=== PATIENT | male | born 1960 | race Caucasian/White ===

== ENCOUNTER 2021-11-09 15:50 | Inpatient (IN) | payer MEDICARE ==
[2021-11-09] MEDS ORDERED: HYDROmorphone 0.5 MG/0.5 ML SYRINGE IVP STA ×2 (16:43→19:07)
--- NOTE | 2021-11-09 16:43 | ED ---
General Adult HPI - General Chief complaint: Extremity Problem,Nontraumatic Stated complaint: Leg swelling Time Seen by Provider: 11/09/21 16:00 Source: patient, EMS, RN notes reviewed, old records reviewed Mode of arrival: EMS Limitations: no limitations - History of Present Illness Initial comments: This is a 61-year-old male who presents emergency Department states he is diabetic. Patient states she's had any indication below the knee on the left leg and today he comes in because he is more swelling to the right leg he has a wound that has not been taking care for about 2 weeks since he left [place]. Patient states he has a wound on the lateral aspect of his right heel and normally he is taking care of when he was a [place] but he hasn't seen anybody because he just moved here 2 weeks ago. Patient states the swelling or leg is definitely worse per patient denies shortness of breath or chest pain or palpitations. Patient denies any fever chills or cough. Patient states he just wants to make sure the wound is taking care of so that he doesn't lose the other leg. Patient denies any abdominal pain patient denies nausea vomiting diarrhea. - Related Data Home Medications Medication Instructions Recorded Confirmed Carvedilol [Coreg] 12.5 mg PO BID-W/MEALS 11/09/21 11/09/21 Insulin Glargine,Hum.rec.anlog 40 unit SQ HS 11/09/21 11/09/21 [Basaglar Kwikpen U-100] Insulin Lispro [humaLOG Kwikpen] 15 units SQ AC-TID 11/09/21 11/09/21 Ketoconazole 2% Shampoo [Nizoral] 1 applic TOPICAL DIRECTED 11/09/21 11/09/21 Ticagrelor [Brilinta] 90 mg PO BID 11/09/21 11/09/21 amLODIPine [Norvasc] 10 mg PO DAILY 11/09/21 11/09/21 levETIRAcetam [Keppra] 1,000 mg PO BID 11/09/21 11/09/21 Allergies Allergy/AdvReac Type Severity Reaction Status Date / Time No Known Allergies Allergy Verified 11/09/21 17:03 Review of Systems ROS Statement: Those systems with pertinent positive or pertinent negative responses have been documented in the HPI. ROS Other: All systems not noted in ROS Statement are negative. Past Medical History Past Medical History: CVA/TIA, Diabetes Mellitus, Hypertension Additional Past Medical History / Comment(s): BKA right leg History of Any Multi-Drug Resistant Organisms: None Reported Additional Past Surgical History / Comment(s): BKA right leg Past Psychological History: No Psychological Hx Reported Smoking Status: Current every day smoker Past Alcohol Use History: None Reported Past Drug Use History: None Reported General Exam - General Exam Comments Initial Comments: GENERAL: Patient is well-developed and well-nourished. Patient is nontoxic and well-hydrated and is in no acute distress. ENT: Neck is soft and supple. No significant lymphadenopathy is noted. Oropharynx is clear. Moist mucous membranes. Neck has full range of motion without eliciting any pain. EYES: The sclera were anicteric and conjunctiva were pink and moist. Extraocular mov ements were intact and pupils were equal round and reactive to light. Eyelids were unremarkable. PULMONARY: Unlabored respirations. Good breath sounds bilaterally. No audible rales rhonchi or wheezing was noted. CARDIOVASCULAR: There is a regular rate and rhythm without any murmurs gallops or rubs. ABDOMEN: Soft and nontender with normal bowel sounds. SKIN: Skin is clear with no lesions or rashes and otherwise unremarkable. NEUROLOGIC: Patient is alert and oriented x3. Cranial nerves II through XII are grossly intact. Motor and sensory are also intact. Normal speech, volume and content. Symmetrical smile. MUSCULOSKELETAL: Patient has a BKA on the left leg. Right leg is swollen has chronic cellulitis in the lateral aspect of the right foot has necrotic lesion that needs de bridement. LYMPHATICS: No significant lymphadenopathy is noted PSYCHIATRIC: Normal psychiatric evaluation. Limitations: no limitations Course Vital Signs 11/09/21 11/09/21 15:58 18:12 Temperature 98.4 F Pulse Rate 92 88 Respiratory 18 20 Rate Blood Pressure 147/82 146/77 O2 Sat by Pulse 96 94 L Oximetry Medical Decision Making - Medical Decision Making EKG shows sinus rhythm at 90 bpm AK interval 174 QRS is 100 QT interval 356 QTC is 43. Patient's EKG shows no ST segment elevation or depression. Chest x-ray shows no acute abnormality. Ultrasound of the leg good flow without obvious DVT. I went back in the room to reevaluate the patient he stated he was not short of breath at all and not having any chest pain. So at this point time because of his elevated creatinine I did not do a CT rule out PE even though his d-dimer was elevated. I spoke with sounds physician's agreed to admit the patient admitted the patient I wrote admitting orders. - Lab Data Result diagrams: 11/09/21 16:26 11/09/21 16:26 Lab Results 11/09/21 11/09/21 11/09/21 Range/Units 16:26 16:26 16:26 WBC 8.3 (3.8-10.6) k/uL RBC 3.85 L (4.30-5.90) m/uL Hgb 10.8 L (13.0-17.5) gm/dL Hct 33.6 L (39.0-53.0) % MCV 87.4 (80.0-100.0) fL MCH 28.2 (25.0-35.0) pg MCHC 32.2 (31.0-37.0) g/dL RDW 14.8 (11.5-15.5) % Plt Count 269 (150-450) k/uL MPV 7.0 Neutrophils % 73 % Lymphocytes % 14 % Monocytes % 7 % Eosinophils % 5 % Basophils % 1 % Neutrophils # 6.0 (1.3-7.7) k/uL Lymphocytes # 1.2 (1.0-4.8) k/uL Monocytes # 0.6 (0-1.0) k/uL Eosinophils # 0.4 (0-0.7) k/uL Basophils # 0.1 (0-0.2) k/uL PT 9.8 (9.0-12.0) sec INR 0.9 (<1.2) APTT 27.8 (22.0-30.0) sec D-Dimer 3.28 H (<0.60) mg/L FEU Sodium 139 (137-145) mmol/L Potassium 4.7 (3.5-5.1) mmol/L Chloride 110 H (98-107) mmol/L Carbon Dioxide 25 (22-30) mmol/L Anion Gap 4 mmol/L BUN 26 H (9-20) mg/dL Creatinine 1.68 H (0.66-1.25) mg/dL Est GFR (CKD-EPI)AfAm 50 (>60 ml/min/1.73 sqM) Est GFR (CKD-EPI)NonAf 43 (>60 ml/min/1.73 sqM) Glucose 196 H (74-99) mg/dL Plasma Lactic Acid Donny (0.7-2.0) mmol/L Calcium 8.1 L (8.4-10.2) mg/dL Total Bilirubin 0.3 (0.2-1.3) mg/dL AST 17 (17-59) U/L ALT 6 (4-49) U/L Alkaline Phosphatase 101 (38-126) U/L Troponin I (0.000-0.034) ng/mL NT-Pro-B Natriuret Pep pg/mL Total Protein 6.3 (6.3-8.2) g/dL Albumin 3.0 L (3.5-5.0) g/dL 11/09/21 11/09/21 11/09/21 Range/Units 16:26 16:26 16:26 WBC (3.8-10.6) k/uL RBC (4.30-5.90) m/uL Hgb (13.0-17.5) gm/dL Hct (39.0-53.0) % MCV (80.0-100.0) fL MCH (25.0-35.0) pg MCHC (31.0-37.0) g/dL RDW (11.5-15.5) % Plt Count (150-450) k/uL MPV Neutrophils % % Lymphocytes % % Monocytes % % Eosinophils % % Basophils % % Neutrophils # (1.3-7.7) k/uL Lymphocytes # (1.0-4.8) k/uL Monocytes # (0-1.0) k/uL Eosinophils # (0-0.7) k/uL Basophils # (0-0.2) k/uL PT (9.0-12.0) sec INR (<1.2) APTT (22.0-30.0) sec D-Dimer (<0.60) mg/L FEU Sodium (137-145) mmol/L Potassium (3.5-5.1) mmol/L Chloride (98-107) mmol/L Carbon Dioxide (22-30) mmol/L Anion Gap mmol/L BUN (9-20) mg/dL Creatinine (0.66-1.25) mg/dL Est GFR (CKD-EPI)AfAm (>60 ml/min/1.73 sqM) Est GFR (CKD-EPI)NonAf (>60 ml/min/1.73 sqM) Glucose (74-99) mg/dL Plasma Lactic Acid Donny 1.0 (0.7-2.0) mmol/L Calcium (8.4-10.2) mg/dL Total Bilirubin (0.2-1.3) mg/dL AST (17-59) U/L ALT (4-49) U/L Alkaline Phosphatase (38-126) U/L Troponin I <0.012 (0.000-0.034) ng/mL NT-Pro-B Natriuret Pep 813 pg/mL Total Protein (6.3-8.2) g/dL Albumin (3.5-5.0) g/dL Disposition Clinical Impression: Pedal edema, Decubitus ulcer of foot Disposition: ADMITTED IP TO THIS HOSP Referrals: None,Stated [Primary Care Provider] - 1-2 days Time of Disposition: 19:36
[2021-11-09 16:58] LABS: Basophils # (A) 0.1 k/uL (0-0.2); Basophils % (A) 1 %; Eosinophils # (A) 0.4 k/uL (0-0.7); Eosinophils % (A) 5 %; HCT 33.6 % (39.0-53.0); HGB 10.8 gm/dL (13.0-17.5); Lymphocytes # (A) 1.2 k/uL (1.0-4.8); Lymphocytes % (A) 14 %; MCH 28.2 pg (25.0-35.0); MCHC 32.2 g/dL (31.0-37.0); MCV 87.4 fL (80.0-100.0); Monocytes # (A) 0.6 k/uL (0-1.0); Monocytes % (A) 7 %; Neutrophils % (A) 73 %; Platelet Count 269 k/uL (150-450); RBC 3.85 m/uL (4.30-5.90); RDW 14.8 % (11.5-15.5); WBC 8.3 k/uL (3.8-10.6)
[2021-11-09 17:13] LABS: Calcium 8.1 mg/dL (8.4-10.2); Potassium 4.7 mmol/L (3.5-5.1); Total Bilirubin 0.3 mg/dL (0.2-1.3); Total Protein 6.3 g/dL (6.3-8.2)
[2021-11-09 17:14] LABS: INR 0.9 (<1.2); Partial Thromboplastin Time 27.8 sec (22.0-30.0); Prothrombin Time 9.8 sec (9.0-12.0)
--- NOTE | 2021-11-09 17:39 | XR ---
EXAMINATION TYPE: XR foot complete RT DATE OF EXAM: 11/09/2021 5:14 PM INDICATION: Patient age:Male; 61 years old; Reason for study: Osteomyelitis; COMPARISON: None TECHNIQUE: The right foot was examined in the AP, oblique, and lateral projections. FINDINGS: Irregularity to the right fifth digit distal metacarpal and proximal phalanx with subtle osseous eros ion. No evidence of radiopaque foreign body. Soft tissue defect is felt to be present near the metata rsophalangeal joint of the fifth digit. IMPRESSION: Subtle osteopenia with suspected erosion of the fifth digit metatarsal and possibly proximal phalanx. Consider dedicated MRI of for better sensitivity osteomyelitis.
--- NOTE | 2021-11-09 18:10 | XR ---
EXAMINATION TYPE: XR chest 2V DATE OF EXAM: 11/09/2021 5:14 PM COMPARISON: None TECHNIQUE: XR chest 2V Frontal and lateral views of the chest. CLINICAL INDICATION:Male, 61 years old with history of difficulty breathing; FINDINGS: Lungs/Pleura: Low lung volumes are present. There is no evidence of pleural effusion, focal consolida tion, or pneumothorax. Pulmonary vascularity: Unremarkable. Heart/mediastinum: Cardiomediastinal silhouette is unremarkable. Musculoskeletal: No acute osseous pathology. IMPRESSION: Low lung volumes with a generalized hazy appearance which could represent atelectasis versus pulmonar y edema correlate with serum BNP.
--- NOTE | 2021-11-09 18:11 | US ---
EXAMINATION TYPE: US venous doppler duplex LE RT DATE OF EXAM: 11/09/2021 5:36 PM COMPARISON: NONE CLINICAL HISTORY: more swollen and calf tenderness. RLE swelling SIDE PERFORMED: Right TECHNIQUE: The lower extremity deep venous system is examined utilizing real time linear array sonog marie with graded compression, doppler sonography and color-flow sonography. VESSELS IMAGED: Common Femoral Vein Deep Femoral Vein Greater Saphenous Vein * Femoral Vein Popliteal Vein Small Saphenous Vein * Proximal Calf Veins (* superficial vessels) Right Leg: Very difficult exam due to edematous tissue and patient unable to withstand any pressure to perform compression pictures. Blood flow seen throughout. Limited exam. Grayscale, color doppler, spectral doppler imaging performed of the deep veins of the lower extremiti es. There is normal flow, compressibility, vascular waveforms. IMPRESSION: Limited exam with diffuse subcutaneous edema. No obvious flow defect identified.
[2021-11-09] MEDS: MORPHINE SULFATE 2 MG/ML SYRINGE IVP PRN (22:28)
[2021-11-09] MEDS ORDERED: VANCOMYCIN 1,750 MG in SODIUM CHLORIDE 0.9% 500 ML 500 ML IVPB ONE (23:45)
[2021-11-09] MEDS ORDERED: INSULIN DETEMIR (LEVEMIR) 100 UNIT/ML SYR SQ SCH (23:45)
[2021-11-09] MEDS ORDERED: VANCOMYCIN IV PER PHARMACY 1 EACH MISC MISCELLANE PRN (23:46)
--- NOTE | 2021-11-09 23:54 | P.HPIM ---
History of Present Illness H&P Date: 11/09/21 The patient is a 61-year-old male with a PMH of type II DM, complicated by PVD status post left BKA, seizure disorder, and hypertension who presents to the emergency room with complaints of right leg and foot pain and redness. The patient reports that he underwent his left BKA surgery 6 months ago due to a nonhealing ulcer in [place] where he is from. He reports being confined to a wheelchair and not taking care of his right leg over the past 2 weeks. Reports worsening erythema of the leg as well as an ulcer on the right heel which is exquisitely painful, currently 9 out of 10 at the time of interview. He denied any additional complaints. Denied expressing fever, chills, chest pain, shortness of breath, nausea, vomiting, diarrhea. Right foot x-ray revealed osteopenia with suspected erosion of the fifth digital metatarsal with MRI recommended to rule out osteomyelitis. Right lower extremity venous Doppler was limited due to patient's discomfort and edema, but flow noted throughout. Chest x-ray revealed generalized haziness. EKG revealed sinus rhythm at 90 bpm with T-wave flattening in leads V5 and V6. Laboratory evaluation was remarkable for BUN of 26, creatinine 1.68, troponin less than 0.012, and proBNP 813. Review of systems: Pertinent positives and negatives as discussed in HPI, a complete review of systems was performed and all other systems are negative. Physical examination: General: non toxic, no distress, appears at stated age, overweight Derm: Right lower extremity erythema extending to knees with chronic venous stasis changes, R feel unstageable ulcer with necrotic center warm, dry Head: atraumatic, normocephalic, symmetric Eyes: EOMI, no lid lag, anicteric sclera, pupils equal round reactive to light ENT: Nose and ears atraumatic, no thrush, no pharyngeal erythema Neck: No thyromegaly, no cervical lymphadenopathy, trachea midline, supple Mouth: no lip lesion, mucus membranes moist Cardiovascular: S1S2 reg, no murmur, positive posterior tibial pulse bilateral, RLE 2+ pitting edema with venous stasis changes, capillary refill less than 2 seconds Lungs: CTA bilateral, no rhonchi, no rales , no accessory muscle use Abdominal: soft, nontender to palpation, no guarding, no appreciable organomegaly, normal bowel sounds Ext: L BKA, RLE strength 5/5 proximally with strength 5/5 in UEs terry, no contractures, Neuro: CN II-XI grossly intact, light touch intact all 4 extremities, finger to nose within normal limits, Psych: Alert, oriented, appropriate affect Assessment/plan Right lower extremity cellulitis with unstageable ulcer and suspected underlying osteomyelitis -Continue with IV antibiotics -Vascular surgery and infectious disease consult -Obtain right foot MRI Kidney injury, acute versus chronic -Monitor for now Chronic conditions: Type 2 DM, HTN, HLD -Check A1c -Insulin sliding scale and blood glucose monitoring -Continue home medications DVT prophylaxis -Heparin subq The patient is admitted with an anticipated greater than 2 midnight stay for evaluation of RLE cellulitis CODE STATUS: Full Code Discussed with: Patient Anticipated discharge date: 11/[address]: Home Past Medical History Past Medical History: CVA/TIA, Diabetes Mellitus, Hypertension Additional Past Medical History / Comment(s): BKA right leg History of Any Multi-Drug Resistant Organisms: None Reported Additional Past Surgical History / Comment(s): BKA right leg Past Anesthesia/Blood Transfusion Reactions: No Reported Reaction Past Psychological History: No Psychological Hx Reported Smoking Status: Current every day smoker Past Alcohol Use History: None Reported Past Drug Use History: None Reported Medications and Allergies Home Medications Medication Instructions Recorded Confirmed Type Carvedilol [Coreg] 12.5 mg PO BID-W/MEALS 11/09/21 11/09/21 History Insulin Glargine,Hum.rec.anlog 40 unit SQ HS 11/09/21 11/09/21 History [Basaglar Kwikpen U-100] Insulin Lispro [humaLOG Kwikpen] 15 units SQ AC-TID 11/09/21 11/09/21 History Ketoconazole 2% Shampoo [Nizoral] 1 applic TOPICAL DIRECTED 11/09/21 11/09/21 History Ticagrelor [Brilinta] 90 mg PO BID 11/09/21 11/09/21 History amLODIPine [Norvasc] 10 mg PO DAILY 11/09/21 11/09/21 History levETIRAcetam [Keppra] 1,000 mg PO BID 11/09/21 11/09/21 History Allergies Allergy/AdvReac Type Severity Reaction Status Date / Time No Known Allergies Allergy Verified 11/09/21 17:03 Physical Exam Vitals: Vital Signs Temp Pulse Pulse Resp BP BP Pulse Ox 11/09/21 20:00 98.4 F 91 20 155/72 94 L 11/09/21 18:12 88 20 146/77 94 L 11/09/21 15:58 98.4 F 92 18 147/82 96 Intake and Output 11/09/21 11/09/21 11/09/21 06:59 14:59 22:59 Other: Weight 104 kg Results CBC & Chem 7: 11/09/21 16:26 11/09/21 16:26 Labs: Abnormal Lab Results - Last 24 Hours (Table) 11/09/21 11/09/21 11/09/21 Range/Units 16:26 16:26 16:26 RBC 3.85 L (4.30-5.90) m/uL Hgb 10.8 L (13.0-17.5) gm/dL Hct 33.6 L (39.0-53.0) % D-Dimer 3.28 H (<0.60) mg/L FEU Chloride 110 H (98-107) mmol/L BUN 26 H (9-20) mg/dL Creatinine 1.68 H (0.66-1.25) mg/dL Glucose 196 H (74-99) mg/dL Calcium 8.1 L (8.4-10.2) mg/dL Albumin 3.0 L (3.5-5.0) g/dL Thrombosis Risk Factor Assmnt - Choose All That Apply Any of the Below Risk Factors Present?: Yes Each Factor Represents 1 point: Obesity (BMI >25) Other Risk Factors: Yes Each Risk Factor Represents 2 Points: Age 61-74 years Other congenital or acquired thrombophilia - If yes, enter type in comment: No Thrombosis Risk Factor Assessment Total Risk Factor Score: 3 Thrombosis Risk Factor Assessment Level: Moderate Risk
[2021-11-10] MEDS: SODIUM CHLORIDE 0.9% 1,000 ML IV SCH ×2 (00:24→17:20)
[2021-11-10] MEDS: HEPARIN SODIUM,PORCINE/PF 5,000 UNIT/0.5 ML SYRINGE SQ SCH ×3 (00:30→16:38)
[2021-11-10] MEDS: PIPERACILLIN-TAZOBACTAM 3.375 GM in SODIUM CHLORIDE 0.9% 100 ML IVPB SCH ×3 (01:17→17:13)
[2021-11-10] MEDS: MORPHINE SULFATE 2 MG/ML SYRINGE IVP PRN ×6 (01:31→20:31)
[2021-11-10 07:18] LABS: Glucose,Whole Blood 266 mg/dL (75-99)
[2021-11-10] MEDS: carvediloL 12.5 MG TAB PO SCH ×2 (08:25→17:14)
[2021-11-10] MEDS: amLODIPine 10 MG TAB PO SCH (08:25)
[2021-11-10] MEDS: TICAGRELOR 90 MG TAB PO SCH ×2 (08:26→20:33)
[2021-11-10] MEDS: levETIRAcetam 500 MG TAB PO SCH ×2 (08:28→20:33)
[2021-11-10] MEDS ORDERED: HYDROcodone/APAP 5-325MG 1 EACH TAB PO PRN (08:46)
[2021-11-10] MEDS ORDERED: LORazepam 1 MG TAB PO STA (08:46)
[2021-11-10 11:27] LABS: HGB 9.8 g/dL (13.0-17.0); MCH 26.9 pg (27.0-32.0); MCHC 30.6 g/dL (32.0-37.0); MCV 87.9 fL (80.0-97.0); Mean Platelet Volume 9.1 fL (9.5-12.2); NRBC Per 100 WBC 0 /100 WBCS (0.0-0.0); Platelet Count 235 X 10*3/uL (140-440); RBC 3.64 X 10*6/uL (4.40-5.60); RDW 14.3 % (11.5-14.5); WBC 7.23 X 10*3/uL (4.50-10.00)
[2021-11-10 11:37] LABS: African American GFR (CKD) 50.1 (60.0-200.0); Anion Gap 10.2 mmol/L (10.00-18.00); BUN/Creat Ratio 13.63 Ratio (12.00-20.00); Blood Urea Nitrogen 22.9 mg/dL (9.0-27.0); Calcium 8.3 mg/dL (8.7-10.3); Carbon Dioxide 20.6 mmol/L (20.0-27.5); Non-African American GFR(CKD) 43.2 (60.0-200.0); Potassium 4.6 mmol/L (3.5-5.5)
[2021-11-10 11:43] LABS: Glucose,Whole Blood 211 mg/dL (75-99)
--- NOTE | 2021-11-10 12:49 | US ---
EXAMINATION TYPE: US kidneys/renal and bladder DATE OF EXAM: 11/10/2021 COMPARISON: NONE CLINICAL HISTORY: NAM. NAM per order. EXAM MEASUREMENTS: Right Kidney: 11.7 x 6.3 x 6.0 cm Left Kidney: 10.3 x 6.4 x 5.9 cm Exam is limited due to patient body habitus and gas. Right Kidney: No hydronephrosis or masses seen Left Kidney: No hydronephrosis or masses seen Bladder: Appears anechoic. Bladder wall appears thickened measuring 5 mm. Bilateral Jets seen: Yes IMPRESSION: No evidence of obstructive uropathy.
--- NOTE | 2021-11-10 12:54 | P.GSCN ---
History of Present Illness Consult date: 11/10/21 Reason for Consult: foot wound History of present illness: 61-year-old male with a PMH of type II DM, PVD status post left BKA, seizure disorder, and hypertension who presents to the emergency room with complaints of right leg and foot pain and redness. The patient reports that he underwent his left BKA surgery 6 months ago due to a nonhealing ulcer in [place]. He reports being confined to a wheelchair and not taking care of his right leg over the past 2 weeks. Reports worsening erythema of the leg as well as an ulcer on the right heel. He denied any additional complaints. Denies fever, chills, chest pain, shortness of breath, nausea, vomiting, diarrhea. Review of Systems All systems: negative (what is mentioned in the PMH or HPI) Past Medical History Past Medical History: CVA/TIA, Diabetes Mellitus, Hypertension Additional Past Medical History / Comment(s): BKA right leg History of Any Multi-Drug Resistant Organisms: None Reported Additional Past Surgical History / Comment(s): BKA right leg Past Anesthesia/Blood Transfusion Reactions: No Reported Reaction Past Psychological History: No Psychological Hx Reported Smoking Status: Current every day smoker Past Alcohol Use History: None Reported Past Drug Use History: None Reported Medications and Allergies Home Medications Medication Instructions Recorded Confirmed Type Carvedilol [Coreg] 12.5 mg PO BID-W/MEALS 11/09/21 11/09/21 History Insulin Glargine,Hum.rec.anlog 40 unit SQ HS 11/09/21 11/09/21 History [Basaglar Kwikpen U-100] Insulin Lispro [humaLOG Kwikpen] 15 units SQ AC-TID 11/09/21 11/09/21 History Ketoconazole 2% Shampoo [Nizoral] 1 applic TOPICAL DIRECTED 11/09/21 11/09/21 History Ticagrelor [Brilinta] 90 mg PO BID 11/09/21 11/09/21 History amLODIPine [Norvasc] 10 mg PO DAILY 11/09/21 11/09/21 History levETIRAcetam [Keppra] 1,000 mg PO BID 11/09/21 11/09/21 History Allergies Allergy/AdvReac Type Severity Reaction Status Date / Time No Known Allergies Allergy Verified 11/09/21 17:03 Surgical - Exam Vital Signs Temp Pulse Resp BP Pulse Ox 98.4 F 92 18 147/82 96 11/09/21 15:58 11/09/21 15:58 11/09/21 15:58 11/09/21 15:58 11/09/21 15:58 palpable dp pulse right. Heel wound noted on the right with ischemic tissue, with appearance of bone involvement, and erythema. 2+ edema right lower leg with chronic venous changes noted on the skin. left BKA is well healed. - General well developed, well nourished, no distress, obese - Eyes PERRL, normal ocular movement - ENT normal pinna, normal nares - Neck no masses - Respiratory normal expansion, normal respiratory effort - Cardiovascular Rhythm: regular - Abdomen Abdomen: soft, non tender - Integumentary other (right heel wound on the lateral aspect with necrotic tissue, no purulence. Surrounding erythema noted.) - Psychiatric oriented to time, oriented to person, oriented to place Results - Labs 11/10/21 07:26 11/10/21 07:26 Abnormal Lab Results - Last 24 Hours (Table) 11/09/21 11/09/21 11/09/21 Range/Units 16:26 16:26 16:26 RBC 3.85 L (4.30-5.90) m/uL Hgb 10.8 L (13.0-17.5) gm/dL Hct 33.6 L (39.0-53.0) % MCH (27.0-32.0) pg MCHC (32.0-37.0) g/dL MPV (9.5-12.2) fL D-Dimer 3.28 H (<0.60) mg/L FEU Chloride 110 H (98-107) mmol/L BUN 26 H (9-20) mg/dL Creatinine 1.68 H (0.66-1.25) mg/dL Est GFR (CKD-EPI)AfAm (60.0-200.0) Est GFR (CKD-EPI)NonAf (60.0-200.0) Glucose 196 H (74-99) mg/dL POC Glucose (mg/dL) (75-99) mg/dL Hemoglobin A1c (0.0-6.0) % Calcium 8.1 L (8.4-10.2) mg/dL Albumin 3.0 L (3.5-5.0) g/dL 11/10/21 11/10/21 11/10/21 Range/Units 07:12 07:26 07:26 RBC 3.64 L (4.30-5.90) m/uL Hgb 9.8 L (13.0-17.5) gm/dL Hct 32.0 L (39.0-53.0) % MCH 26.9 L (27.0-32.0) pg MCHC 30.6 L (32.0-37.0) g/dL MPV 9.1 L (9.5-12.2) fL D-Dimer (<0.60) mg/L FEU Chloride (98-107) mmol/L BUN (9-20) mg/dL Creatinine (0.66-1.25) mg/dL Est GFR (CKD-EPI)AfAm (60.0-200.0) Est GFR (CKD-EPI)NonAf (60.0-200.0) Glucose (74-99) mg/dL POC Glucose (mg/dL) 266 H (75-99) mg/dL Hemoglobin A1c 8.9 H (0.0-6.0) % Calcium (8.4-10.2) mg/dL Albumin (3.5-5.0) g/dL 11/10/21 11/10/21 Range/Units 07:26 11:35 RBC (4.30-5.90) m/uL Hgb (13.0-17.5) gm/dL Hct (39.0-53.0) % MCH (27.0-32.0) pg MCHC (32.0-37.0) g/dL MPV (9.5-12.2) fL D-Dimer (<0.60) mg/L FEU Chloride 110 H (98-107) mmol/L BUN (9-20) mg/dL Creatinine 1.7 H (0.66-1.25) mg/dL Est GFR (CKD-EPI)AfAm 50.1 L (60.0-200.0) Est GFR (CKD-EPI)NonAf 43.2 L (60.0-200.0) Glucose 205 H (74-99) mg/dL POC Glucose (mg/dL) 211 H (75-99) mg/dL Hemoglobin A1c (0.0-6.0) % Calcium 8.3 L (8.4-10.2) mg/dL Albumin (3.5-5.0) g/dL Diabetes panel 11/09/21 11/10/21 11/10/21 Range/Units 16:26 07:26 07:26 Sodium 139 140 (137-145) mmol/L Potassium 4.7 4.6 (3.5-5.1) mmol/L Chloride 110 H 110 H (98-107) mmol/L Carbon Dioxide 25 20.6 (22-30) mmol/L BUN 26 H 22.9 (9-20) mg/dL Creatinine 1.68 H 1.7 H (0.66-1.25) mg/dL Glucose 196 H 205 H (74-99) mg/dL Hemoglobin A1c 8.9 H (0.0-6.0) % Calcium 8.1 L 8.3 L (8.4-10.2) mg/dL AST 17 (17-59) U/L ALT 6 (4-49) U/L Alkaline Phosphatase 101 (38-126) U/L Total Protein 6.3 (6.3-8.2) g/dL Albumin 3.0 L (3.5-5.0) g/dL Calcium panel 11/09/21 11/10/21 Range/Units 16:26 07:26 Calcium 8.1 L 8.3 L (8.4-10.2) mg/dL Albumin 3.0 L (3.5-5.0) g/dL Pituitary panel 11/09/21 11/10/21 Range/Units 16:26 07:26 Sodium 139 140 (137-145) mmol/L Potassium 4.7 4.6 (3.5-5.1) mmol/L Chloride 110 H 110 H (98-107) mmol/L Carbon Dioxide 25 20.6 (22-30) mmol/L BUN 26 H 22.9 (9-20) mg/dL Creatinine 1.68 H 1.7 H (0.66-1.25) mg/dL Glucose 196 H 205 H (74-99) mg/dL Calcium 8.1 L 8.3 L (8.4-10.2) mg/dL Adrenal panel 11/09/21 11/10/21 Range/Units 16:26 07:26 Sodium 139 140 (137-145) mmol/L Potassium 4.7 4.6 (3.5-5.1) mmol/L Chloride 110 H 110 H (98-107) mmol/L Carbon Dioxide 25 20.6 (22-30) mmol/L BUN 26 H 22.9 (9-20) mg/dL Creatinine 1.68 H 1.7 H (0.66-1.25) mg/dL Glucose 196 H 205 H (74-99) mg/dL Calcium 8.1 L 8.3 L (8.4-10.2) mg/dL Total Bilirubin 0.3 (0.2-1.3) mg/dL AST 17 (17-59) U/L ALT 6 (4-49) U/L Alkaline Phosphatase 101 (38-126) U/L Total Protein 6.3 (6.3-8.2) g/dL Albumin 3.0 L (3.5-5.0) g/dL Assessment and Plan Assessment: 1. right diabetic heel wound likely [place] 3 2. Diabetes 3. History of left BKA 4. Obesity 5. CKD Plan: Reviewed xray of the right foot. Agree with MRI. Continue current antibiotics Will obtain arterial doppler of the right lower extremity. Discussed need for debridement which we will schedule Friday.
--- NOTE | 2021-11-10 14:23 | MR ---
EXAMINATION TYPE: MR foot RT wo/w con DATE OF EXAM: 11/10/2021 COMPARISON: None HISTORY: R foot suspected osteo, Open wound right heel, redness up calf CONTRAST: Standard multiplanar, multisequence MRI departmental protocol images were obtained without contrast a nd with 10 mL intravenous Gadavist gadolinium contrast. There is subcutaneous edema around the foot. The tarsal bones appear intact. No edema. The Achilles t endon is intact. Plantar fascia is intact. Exam limited slightly by motion. The medial and lateral fl exor tendons of the ankle appear intact. There are small skin defect on the lateral aspect of the pos terior calcaneus consistent with ulcer. No bone edema or bone destruction seen. There is soft tissue edema around the ulcer defect. The toes appear intact. Metatarsals are intact. Contrast images show no pathologic enhancement. IMPRESSION: There is cutaneous ulcer defect on the lateral aspect of the calcaneus. There is surrounding edema. T here is soft tissue edema of the foot. No fracture. No evidence of osteomyelitis.
--- NOTE | 2021-11-10 15:00 | ECHOF ---
Referral Reason:LOWER EXT EDEMA MEASUREMENTS -------- HEIGHT: 182.9 cm WEIGHT: 103.9 kg BP: 166/72 RVIDd: 3.7 cm (< 3.3) IVSd: 1.2 cm (0.6 - 1.1) LVIDd: 5.1 cm (3.9 - 5.3) LVPWd: 1.1 cm (0.6 - 1.1) IVSs: 1.7 cm LVIDs: 3.4 cm LVPWs: 1.7 cm LA Diam: 3.9 cm (2.7 - 3.8) Ao Diam: 3.3 cm (2.0 - 3.7) AV Cusp: 2.0 cm (1.5 - 2.6) MV E Miguel: 1.24 m/s MV DecT: 149 ms MV A Miguel: 0.99 m/s MV E/A Ratio: 1.26 RAP: 5.00 mmHg RVSP: 29.94 mmHg FINDINGS -------- Sinus rhythm. This was a technically adequate study. The left ventricular size is normal. There is borderline concentric left ventricular hypertrophy. Overall left ventricular systolic function is normal with, an EF between 60 - 65 %. The right ventricle is mildly enlarged. The left atrium is normal in size. The right atrium is normal in size. There is mild aortic valve sclerosis. Mild mitral annular calcification present. Mild mitral regurgitation is present. Mild tricuspid regurgitation present. Right ventricular systolic pressure is normal at < 35 mmHg. The pulmonic valve was not well visualized. The aortic root size is normal. There is no pericardial effusion. CONCLUSIONS -------- 1. The left ventricular size is normal. 2. There is borderline concentric left ventricular hypertrophy. 3. Overall left ventricular systolic function is normal with, an EF between 60 - 65 %. 4. The right ventricle is mildly enlarged. 5. There is mild aortic valve sclerosis. 6. Mild mitral annular calcification present. 7. Mild mitral regurgitation is present. 8. Mild tricuspid regurgitation present. 9. There is no pericardial effusion. [employer]: SNOW Hughes
--- NOTE | 2021-11-10 15:22 | P.PN ---
Subjective Progress Note Date: 11/10/21 History of present illness: 61-year-old male with a PMH of type II DM, PVD status post left BKA, seizure disorder, and hypertension who presents to the emergency room with complaints of right leg and foot pain and redness. The patient reports that he underwent his left BKA surgery 6 months ago due to a nonhealing ulcer in [place]. He reports being confined to a wheelchair and not taking care of his right leg over the past 2 weeks. Reports worsening erythema of the leg as well as an ulcer on the right heel. He denied any additional complaints. Denies fever, chills, chest pain, shortness of breath, nausea, vomiting, diarrhea. Interval history: Patient was seen and examined with that. Patient is complaining of significant pain of his left foot described as 10 out of 10. Patient denies any chest pain or shortness of breath. He is also complaining of lower extremity edema. Objective - Vital Signs Vital signs: Vital Signs Temp 98.1 F 11/10/21 11:41 Pulse 93 11/10/21 11:41 Resp 18 11/10/21 11:41 BP 156/74 11/10/21 11:41 Pulse Ox 95 11/10/21 05:00 Intake & Output 11/09/21 11/10/21 11/10/21 18:59 06:59 18:59 Intake Total 1700 Output Total 700 300 Balance 1000 -300 Weight 89.811 kg 104 kg 104 kg Intake: Intake, IV Titration 900 Amount Piperacillin-Tazobactam 3 100 .375 gm In Sodium Chloride 0.9% 100 ml @ 25 mls/hr IVPB Q8HR [facility] Rx# :[id number] Sodium Chloride 0.9% 1, 300 000 ml @ 75 mls/hr IV . [id number] [facility] Rx#:[id number] Vancomycin 1,750 mg In 500 Sodium Chloride 0.9% 500 ml 500 ml @ 167 mls/hr IVPB ONCE ONE Rx#: [id number] Oral 800 Output: Urine 700 300 Other: Voiding Method Urinal Urinal - Exam Physical examination: General: non toxic, no distress, obese Derm: Right lower extremity erythema extending to knees with chronic venous stasis changes, R feel unstageable ulcer with necrotic center warm, dry Head: atraumatic, normocephalic, symmetric Eyes: EOMI, no lid lag, anicteric sclera, pupils equal round reactive to light ENT: Nose and ears atraumatic, no thrush, no pharyngeal erythema Neck: No thyromegaly, no cervical lymphadenopathy, trachea midline, supple Mouth: no lip lesion, mucus membranes moist Cardiovascular: S1S2 reg, no murmur, positive posterior tibial pulse bilateral, RLE 2+ pitting edema with venous stasis changes, capillary refill less than 2 seconds Lungs: CTA bilateral, no rhonchi, no rales , no accessory muscle use Abdominal: soft, nontender to palpation, no guarding, no appreciable organomegaly, normal bowel sounds Ext: L BKA, right heel wound with ischemic tissue. With appearance of bone involvement and erythema. 2+ edema in the right leg. Neuro: CN II-XI grossly intact, light touch intact all 4 extremities, finger to nose within normal limits, Psych: Alert, oriented, appropriate affect - Labs CBC & Chem 7: 11/10/21 07:26 11/10/21 07:26 Labs: Abnormal Lab Results - Last 24 Hours (Table) 11/09/21 11/09/21 11/09/21 Range/Units 16:26 16:26 16:26 RBC 3.85 L (4.30-5.90) m/uL Hgb 10.8 L (13.0-17.5) gm/dL Hct 33.6 L (39.0-53.0) % MCH (27.0-32.0) pg MCHC (32.0-37.0) g/dL MPV (9.5-12.2) fL D-Dimer 3.28 H (<0.60) mg/L FEU Chloride 110 H (98-107) mmol/L BUN 26 H (9-20) mg/dL Creatinine 1.68 H (0.66-1.25) mg/dL Est GFR (CKD-EPI)AfAm (60.0-200.0) Est GFR (CKD-EPI)NonAf (60.0-200.0) Glucose 196 H (74-99) mg/dL POC Glucose (mg/dL) (75-99) mg/dL Hemoglobin A1c (0.0-6.0) % Calcium 8.1 L (8.4-10.2) mg/dL Albumin 3.0 L (3.5-5.0) g/dL 11/10/21 11/10/21 11/10/21 Range/Units 07:12 07:26 07:26 RBC 3.64 L (4.30-5.90) m/uL Hgb 9.8 L (13.0-17.5) gm/dL Hct 32.0 L (39.0-53.0) % MCH 26.9 L (27.0-32.0) pg MCHC 30.6 L (32.0-37.0) g/dL MPV 9.1 L (9.5-12.2) fL D-Dimer (<0.60) mg/L FEU Chloride (98-107) mmol/L BUN (9-20) mg/dL Creatinine (0.66-1.25) mg/dL Est GFR (CKD-EPI)AfAm (60.0-200.0) Est GFR (CKD-EPI)NonAf (60.0-200.0) Glucose (74-99) mg/dL POC Glucose (mg/dL) 266 H (75-99) mg/dL Hemoglobin A1c 8.9 H (0.0-6.0) % Calcium (8.4-10.2) mg/dL Albumin (3.5-5.0) g/dL 11/10/21 11/10/21 Range/Units 07:26 11:35 RBC (4.30-5.90) m/uL Hgb (13.0-17.5) gm/dL Hct (39.0-53.0) % MCH (27.0-32.0) pg MCHC (32.0-37.0) g/dL MPV (9.5-12.2) fL D-Dimer (<0.60) mg/L FEU Chloride 110 H (98-107) mmol/L BUN (9-20) mg/dL Creatinine 1.7 H (0.66-1.25) mg/dL Est GFR (CKD-EPI)AfAm 50.1 L (60.0-200.0) Est GFR (CKD-EPI)NonAf 43.2 L (60.0-200.0) Glucose 205 H (74-99) mg/dL POC Glucose (mg/dL) 211 H (75-99) mg/dL Hemoglobin A1c (0.0-6.0) % Calcium 8.3 L (8.4-10.2) mg/dL Albumin (3.5-5.0) g/dL Assessment and Plan Assessment: Assessment and plan: Right lower extremity cellulitis with right heel ulcer with osteomyelitis -Continue with IV antibiotics per infectious disease -Vascular surgery and infectious disease consult -OK negative for osteomyelitis -Vascular surgery plans for debridement -Arterial Doppler ordered -Pain control suspect chronic kidney disease secondary to diabetic nephropathy -Monitor for now Medical noncompliance Type 2 diabetes mellitus with uncontrolled hyperglycemia -A1c 8.9 -Insulin sliding scale and blood glucose monitoring -Continue home medications Lower extremity edema -Check 2-D echo: -Normal systolic function with EF 60-65%. Right ventricle mildly enlarged. Mild aortic valve sclerosis. DVT prophylaxis -Heparin subq The patient is admitted with an anticipated greater than 2 midnight stay for evaluation of RLE cellulitis CODE STATUS: Full Code
[2021-11-10] MEDS: VANCOMYCIN 1,750 MG in SODIUM CHLORIDE 0.9% 500 ML 500 ML IVPB SCH (17:13)
[2021-11-10] MEDS: GABAPENTIN 100 MG CAP PO SCH ×2 (17:13→22:02)
[2021-11-10] MEDS: HYDROcodone/APAP 10-325MG 1 EACH TAB PO PRN ×2 (17:13→23:32)
[2021-11-10 17:16] LABS: Glucose,Whole Blood 262 mg/dL (75-99)
[2021-11-10 20:31] LABS: Glucose,Whole Blood 229 mg/dL (75-99)
[2021-11-10] MEDS: INSULIN DETEMIR (LEVEMIR) 100 UNIT/ML SYR SQ SCH (20:33)
[2021-11-11] MEDS: SODIUM CHLORIDE 0.9% 1,000 ML IV SCH ×3 (00:08→16:41)
[2021-11-11] MEDS: PIPERACILLIN-TAZOBACTAM 3.375 GM in SODIUM CHLORIDE 0.9% 100 ML IVPB SCH ×4 (00:09→23:16)
[2021-11-11] MEDS: HEPARIN SODIUM,PORCINE/PF 5,000 UNIT/0.5 ML SYRINGE SQ SCH ×5 (00:10→23:16)
[2021-11-11] MEDS: MORPHINE SULFATE 2 MG/ML SYRINGE IVP PRN ×6 (00:35→21:56)
[2021-11-11 07:09] LABS: Glucose,Whole Blood 194 mg/dL (75-99)
--- NOTE | 2021-11-11 08:33 | P.CONS ---
History of Present Illness - Reason for Consult Consult date: 11/10/21 Diabetic foot infection Requesting physician: Sydni Nash - Chief Complaint right foot pain and redness x 1 week - History of Present Illness Patient is a 61-year male with a past medical he significant for diabetes mellitus, peripheral vascular disease did have a history of left below the knee amputation seizure disorder and hypertension presented to hospital with right foot pain and redness apparently patient was recently did have a debridement of a callus on the right foot/heel area on the lateral border about 3 weeks ago patient mention he was doing well before that afterwards he started having some pain and discomfort to the right heel area seem to have becoming more painful describing it to be throbbing intensity is almost 9 out of 10 with no radiation with associated swelling and redness patient on presentation to the hospital was afebrile and no fever have been recorded subsequently patient did have a normal white count creatinine was mildly elevated liver enzymes are normal blood cultures obtained which are currently pending patient did have a x- ray of the foot which did shows osteopenia with suspected erosion of the left fifth metatarsal and possibly proximal phalanx consider MRI head which has been ordered patient has been started on Zosyn and vancomycin infectious disease was consulted for further management of antibiotic therapy, MRI was completed mention cutaneous ulcer defect on the lateral aspect of the calcaneus s urrounding erythema no evidence of osteomyelitis Review of Systems Positive point has been mentioned in the HPI rest of the systems are negative Past Medical History Past Medical History: CVA/TIA, Diabetes Mellitus, Hypertension Additional Past Medical History / Comment(s): BKA right leg History of Any Multi-Drug Resistant Organisms: None Reported Additional Past Surgical History / Comment(s): BKA right leg Past Anesthesia/Blood Transfusion Reactions: No Reported Reaction Past Psychological History: No Psychological Hx Reported Smoking Status: Current every day smoker Past Alcohol Use History: None Reported Past Drug Use History: None Reported Medications and Allergies Home Medications Medication Instructions Recorded Confirmed Type Carvedilol [Coreg] 12.5 mg PO BID-W/MEALS 11/09/21 11/09/21 History Insulin Glargine,Hum.rec.anlog 40 unit SQ HS 11/09/21 11/09/21 History [Basaglar Kwikpen U-100] Insulin Lispro [humaLOG Kwikpen] 15 units SQ AC-TID 11/09/21 11/09/21 History Ketoconazole 2% Shampoo [Nizoral] 1 applic TOPICAL DIRECTED 11/09/21 11/09/21 History Ticagrelor [Brilinta] 90 mg PO BID 11/09/21 11/09/21 History amLODIPine [Norvasc] 10 mg PO DAILY 11/09/21 11/09/21 History levETIRAcetam [Keppra] 1,000 mg PO BID 11/09/21 11/09/21 History Allergies Allergy/AdvReac Type Severity Reaction Status Date / Time No Known Allergies Allergy Verified 11/09/21 17:03 Physical Exam Vitals: Vital Signs Temp Pulse Pulse Resp BP BP Pulse Ox 11/10/21 11:41 98.1 F 93 18 156/74 11/10/21 05:00 98.4 F 82 18 166/72 95 11/09/21 20:00 98.4 F 91 20 155/72 94 L 11/09/21 18:12 88 20 146/77 94 L 11/09/21 15:58 98.4 F 92 18 147/82 96 Intake and Output 11/09/21 11/10/21 11/10/21 22:59 06:59 14:59 Intake Total 1700 Output Total 700 300 Balance 1000 -300 Intake: Intake, IV Titration 900 Amount Piperacillin-Tazobactam 3 100 .375 gm In Sodium Chloride 0.9% 100 ml @ 25 mls/hr IVPB Q8HR [facility] Rx# :[id number] Sodium Chloride 0.9% 1, 300 000 ml @ 75 mls/hr IV . [id number] [facility] Rx#:[id number] Vancomycin 1,750 mg In 500 Sodium Chloride 0.9% 500 ml 500 ml @ 167 mls/hr IVPB ONCE ONE Rx#: [id number] Oral 800 Output: Urine 700 300 Other: Voiding Method Urinal Weight 104 kg 104 kg GENERAL DESCRIPTION: Middle-aged male lying in bed, no distress. No tachypnea or accessory muscle of respiration use. HEENT: Shows Pallor , no scleral icterus. Oral mucous membrane is dry. No pharyngeal erythema or thrush NECK: Trachea central, no thyromegaly. LUNGS: Unlabored breathing. Clear to auscultation anteriorly. No wheeze or crackle. HEART: S1, S2, regular rate and rhythm. No loud murmur ABDOMEN: Soft, no tenderness , guarding or rigidity, no organomegaly EXTREMITIES: No edema of feet. right lateral heel with ulcer and surrounding redness , no drainage SKIN: No rash, no masses palpable. NEUROLOGICAL: The patient is awake, alert, oriented x3, mood and affect normal. Results CBC & Chem 7: 11/10/21 07:11/10/21 07:26 Labs: Abnormal Lab Results - Last 24 Hours (Table) 11/09/21 11/09/21 11/09/21 Range/Units 16:26 16:26 16:26 RBC 3.85 L (4.30-5.90) m/uL Hgb 10.8 L (13.0-17.5) gm/dL Hct 33.6 L (39.0-53.0) % MCH (27.0-32.0) pg MCHC (32.0-37.0) g/dL MPV (9.5-12.2) fL D-Dimer 3.28 H (<0.60) mg/L FEU Chloride 110 H (98-107) mmol/L BUN 26 H (9-20) mg/dL Creatinine 1.68 H (0.66-1.25) mg/dL Est GFR (CKD-EPI)AfAm (60.0-200.0) Est GFR (CKD-EPI)NonAf (60.0-200.0) Glucose 196 H (74-99) mg/dL POC Glucose (mg/dL) (75-99) mg/dL Hemoglobin A1c (0.0-6.0) % Calcium 8.1 L (8.4-10.2) mg/dL Albumin 3.0 L (3.5-5.0) g/dL 11/10/21 11/10/21 11/10/21 Range/Units 07:12 07: 07:26 RBC 3.64 L (4.30-5.90) m/uL Hgb 9.8 L (13.0-17.5) gm/dL Hct 32.0 L (39.0-53.0) % MCH 26.9 L (27.0-32.0) pg MCHC 30.6 L (32.0-37.0) g/dL MPV 9.1 L (9.5-12.2) fL D-Dimer (<0.60) mg/L FEU Chloride (98-107) mmol/L BUN (9-20) mg/dL Creatinine (0.66-1.25) mg/dL Est GFR (CKD-EPI)AfAm (60.0-200.0) Est GFR (CKD-EPI)NonAf (60.0-200.0) Glucose (74-99) mg/dL POC Glucose (mg/dL) 266 H (75-99) mg/dL Hemoglobin A1c 8.9 H (0.0-6.0) % Calcium (8.4-10.2) mg/dL Albumin (3.5-5.0) g/dL 11/10/21 11/10/21 Range/Units 07:26 11:35 RBC (4.30-5.90) m/uL Hgb (13.0-17.5) gm/dL Hct (39.0-53.0) % MCH (27.0-32.0) pg MCHC (32.0-37.0) g/dL MPV (9.5-12.2) fL D-Dimer (<0.60) mg/L FEU Chloride 110 H (98-107) mmol/L BUN (9-20) mg/dL Creatinine 1.7 H (0.66-1.25) mg/dL Est GFR (CKD-EPI)AfAm 50.1 L (60.0-200.0) Est GFR (CKD-EPI)NonAf 43.2 L (60.0-200.0) Glucose 205 H (74-99) mg/dL POC Glucose (mg/dL) 211 H (75-99) mg/dL Hemoglobin A1c (0.0-6.0) % Calcium 8.3 L (8.4-10.2) mg/dL Albumin (3.5-5.0) g/dL Assessment and Plan (1) Decubitus ulcer of foot Current Visit: Yes Status: Acute Code(s): L89.899 - PRESSURE ULCER OF OTHER SITE, UNSPECIFIED STAGE SNOMED Code(s): 0414941552 Plan: 1patient with right lateral heel/foot area diabetic foot ulcer started with debridement of the callus by 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 2patient with a borderline kidney function high risk of nephrotoxicity. 3local wound culture to guide further antibiotic therapy. 4continue with Zosyn however discontinue vancomycin. We will follow on clinical condition and cultures to further adjust medication if needed Thank you for this consultation will follow this patient along with you Time with Patient: Greater than 30
[2021-11-11] MEDS: HYDROcodone/APAP 10-325MG 1 EACH TAB PO PRN ×3 (08:38→21:56)
[2021-11-11] MEDS: amLODIPine 10 MG TAB PO SCH (08:38)
[2021-11-11] MEDS: GABAPENTIN 100 MG CAP PO SCH ×3 (08:39→20:53)
[2021-11-11] MEDS: levETIRAcetam 500 MG TAB PO SCH ×2 (08:39→20:53)
[2021-11-11] MEDS: VANCOMYCIN 1,750 MG in SODIUM CHLORIDE 0.9% 500 ML 500 ML IVPB SCH (08:39)
[2021-11-11] MEDS: carvediloL 12.5 MG TAB PO SCH ×2 (08:39→17:17)
[2021-11-11] MEDS: INSULIN DETEMIR (LEVEMIR) 100 UNIT/ML SYR SQ SCH ×2 (08:40→20:53)
[2021-11-11] MEDS: TICAGRELOR 90 MG TAB PO SCH ×2 (09:18→20:53)
[2021-11-11 11:39] LABS: Basophils # (A) 0.05 X 10*3/uL (0.00-0.10); Basophils % (A) 0.8 %; Eosinophils % (A) 6.3 %; HCT 29.8 % (39.6-50.0); HGB 8.9 g/dL (13.0-17.0); Immature Grans, Automated 0.5 %; Lymphocytes # (A) 1.37 X 10*3/uL (0.90-5.00); Lymphocytes % (A) 21.6 %; MCH 26.9 pg (27.0-32.0); MCHC 29.9 g/dL (32.0-37.0); Mean Platelet Volume 9.6 fL (9.5-12.2); Monocytes # (A) 0.63 X 10*3/uL (0.20-1.00); Monocytes % (A) 9.9 %; NRBC Per 100 WBC 0 /100 WBCS (0.0-0.0); Neutrophils # (A) 3.86 X 10*3/uL (1.80-7.70); Neutrophils % (A) 60.9 %; Platelet Count 214 X 10*3/uL (140-440); RBC 3.31 X 10*6/uL (4.40-5.60); RDW 14.3 % (11.5-14.5); WBC 6.34 X 10*3/uL (4.50-10.00)
[2021-11-11 11:45] LABS: Glucose,Whole Blood 205 mg/dL (75-99)
[2021-11-11 11:46] LABS: ALT <5 U/L (10-49); AST 10 U/L (14-35); African American GFR (CKD) 43.1 (60.0-200.0); Albumin 2.9 g/dL (3.8-4.9); Albumin/Globulin Ratio 1.04 (1.60-3.17); Alkaline Phosphatase 88 U/L (41-126); BUN/Creat Ratio 11.74 Ratio (12.00-20.00); Blood Urea Nitrogen 22.3 mg/dL (9.0-27.0); Calcium 8.1 mg/dL (8.7-10.3); Carbon Dioxide 19.7 mmol/L (20.0-27.5); Chloride 112 mmol/L (96-109); Globulin 2.8 g/dL (1.6-3.3); Glucose 176 mg/dL (70-110); Magnesium 2.2 mg/dL (1.5-2.4); Non-African American GFR(CKD) 37.2 (60.0-200.0); Potassium 4.8 mmol/L (3.5-5.5); Sodium 141 mmol/L (135-145); Total Bilirubin <0.15 mg/dL (0.30-1.20); Total Protein 5.7 g/dL (6.2-8.2)
[2021-11-11 16:59] LABS: Glucose,Whole Blood 256 mg/dL (75-99)
--- NOTE | 2021-11-11 17:55 | P.PN ---
Subjective History of present illness: 61-year-old male with a PMH of type II DM, PVD status post left BKA, seizure disorder, and hypertension who presents to the emergency room with complaints of right leg and foot pain and redness. The patient reports that he underwent his left BKA surgery 6 months ago due to a nonhealing ulcer in [place]. He reports being confined to a wheelchair and not taking care of his right leg over the past 2 weeks. Reports worsening erythema of the leg as well as an ulcer on the right heel. He denied any additional complaints. Denies fever, chills, chest pain, shortness of breath, nausea, vomiting, diarrhea. Interval history: Patient was seen and examined with that. Patient still complaining of left foot pain but well-controlled with IV and oral medications. Patient denies any chest pain or shortness of breath. He is also complaining of lower extremity edema. Objective - Vital Signs Vital signs: Vital Signs Temp 98.0 F 11/11/21 17:08 Pulse 79 11/11/21 17:08 Resp 16 11/11/21 17:08 BP 135/74 11/11/21 17:08 Pulse Ox 97 11/11/21 17:08 Intake & Output 11/10/21 11/11/21 11/11/21 18:59 06:59 18:59 Intake Total 900 550 Output Total 300 Balance 600 550 Weight 104 kg Intake: Intake, IV Titration 900 550 Amount Piperacillin-Tazobactam 3 100 .375 gm In Sodium Chloride 0.9% 100 ml @ 25 mls/hr IVPB Q8HR [facility] Rx# :[id number] Sodium Chloride 0.9% 1, 900 450 000 ml @ 75 mls/hr IV . [id number] [facility] Rx#:[id number] Output: Urine 300 Other: Voiding Method Urinal Urinal Urinal # Voids 1 # Bowel Movements 1 - Labs CBC & Chem 7: 11/11/21 07:26 11/11/21 07:26 Labs: Abnormal Lab Results - Last 24 Hours (Table) 11/10/21 11/11/21 11/11/21 Range/Units 20:30 07:04 07:26 RBC 3.31 L (4.40-5.60) X 10*6/uL Hgb 8.9 L (13.0-17.0) g/dL Hct 29.8 L (39.6-50.0) % MCH 26.9 L (27.0-32.0) pg MCHC 29.9 L (32.0-37.0) g/dL Eosinophils # 0.40 H (0.04-0.35) X 10*3/uL Chloride (96-109) mmol/L Carbon Dioxide (20.0-27.5) mmol/L Anion Gap (10.00-18.00) mmol/L Creatinine (0.6-1.5) mg/dL Est GFR (CKD-EPI)AfAm (60.0-200.0) Est GFR (CKD-EPI)NonAf (60.0-200.0) BUN/Creatinine Ratio (12.00-20.00) Ratio Glucose (70-110) mg/dL POC Glucose (mg/dL) 229 H 194 H (75-99) mg/dL Calcium (8.7-10.3) mg/dL Total Bilirubin (0.30-1.20) mg/dL AST (14-35) U/L ALT (10-49) U/L Total Protein (6.2-8.2) g/dL Albumin (3.8-4.9) g/dL Albumin/Globulin Ratio (1.60-3.17) g/dL 11/11/21 11/11/21 11/11/21 Range/Units 07:26 11:22 16:47 RBC (4.40-5.60) X 10*6/uL Hgb (13.0-17.0) g/dL Hct (39.6-50.0) % MCH (27.0-32.0) pg MCHC (32.0-37.0) g/dL Eosinophils # (0.04-0.35) X 10*3/uL Chloride 112 H (96-109) mmol/L Carbon Dioxide 19.7 L (20.0-27.5) mmol/L Anion Gap 9.30 L (10.00-18.00) mmol/L Creatinine 1.9 H (0.6-1.5) mg/dL Est GFR (CKD-EPI)AfAm 43.1 L (60.0-200.0) Est GFR (CKD-EPI)NonAf 37.2 L (60.0-200.0) BUN/Creatinine Ratio 11.74 L (12.00-20.00) Ratio Glucose 176 H (70-110) mg/dL POC Glucose (mg/dL) 205 H 256 H (75-99) mg/dL Calcium 8.1 L (8.7-10.3) mg/dL Total Bilirubin <0.15 L (0.30-1.20) mg/dL AST 10 L (14-35) U/L ALT <5 L (10-49) U/L Total Protein 5.7 L (6.2-8.2) g/dL Albumin 2.9 L (3.8-4.9) g/dL Albumin/Globulin Ratio 1.04 L (1.60-3.17) g/dL Microbiology - Last 24 Hours (Table) 11/10/21 11:19 Blood Culture - Preliminary Blood No Growth after 24 hours Assessment and Plan Assessment: Assessment and plan: Right lower extremity cellulitis with right heel ulcer -Continue with IV antibiotics per infectious disease -Vascular surgery and infectious disease consult -UT negative for osteomyelitis -Vascular surgery plans for debridement -Arterial Doppler ordered -Pain control suspect chronic kidney disease secondary to diabetic nephropathy -Monitor for now Medical noncompliance Type 2 diabetes mellitus with uncontrolled hyperglycemia -A1c 8.9 -Insulin sliding scale and blood glucose monitoring -Continue home medications Lower extremity edema -Check 2-D echo: -Normal systolic function with EF 60-65%. Right ventricle mildly enlarged. Mild aortic valve sclerosis. DVT prophylaxis -Heparin subq The patient is admitted with an anticipated greater than 2 midnight stay for evaluation of RLE cellulitis CODE STATUS: Full Code
[2021-11-11 20:28] LABS: Glucose,Whole Blood 219 mg/dL (75-99)
[2021-11-11] MEDS: INSULIN ASPART (NovoLOG) 100 UNIT/ML VIAL SQ SCH (21:53)
--- NOTE | 2021-11-11 23:22 | P.PN ---
Subjective Progress Note Date: 11/11/21 Principal diagnosis: Right heel diabetic wound infection Patient is a 61 year old male with a past medical history significant for left mslxe-[id number]-[id number] amputation in this patient with underlying diabetes presenting to the hospital with a nonhealing wound to the right heel and concern for secondary infection, patient did have MRI completed on 11/10/2021 with no evidence of osteomyelitis. On today's evaluation that is 11/11/2021, the patient denies having any fever or any chills, still complaining of pain to the right heel area, , denies having any chest pain shortness of breath cough no nausea no vomiting no abdominal pain no diarrhea Objective - Vital Signs Vital signs: Vital Signs Temp 98.4 F 11/11/21 11:19 Pulse 78 11/11/21 11:19 Resp 16 11/11/21 11:19 BP 123/72 11/11/21 11:19 Pulse Ox 95 11/11/21 11:19 Intake & Output 11/10/21 11/11/21 11/11/21 18:59 06:59 18:59 Intake Total 900 550 Output Total 300 Balance 600 550 Weight 104 kg Intake: Intake, IV Titration 900 550 Amount Piperacillin-Tazobactam 3 100 .375 gm In Sodium Chloride 0.9% 100 ml @ 25 mls/hr IVPB Q8HR [facility] Rx# :[id number] Sodium Chloride 0.9% 1, 900 450 000 ml @ 75 mls/hr IV . [id number] [facility] Rx#:[id number] Output: Urine 300 Other: Voiding Method Urinal Urinal Urinal # Voids 1 # Bowel Movements 1 - Exam GENERAL DESCRIPTION: Middle-aged male lying in bed in no distress RESPIRATORY SYSTEM: Unlabored breathing , decreased breath sounds at bases HEART: S1 S2 regular rate and rhythm , ABDOMEN: Soft , no tenderness EXTREMITIES: Right lateral heel with some slough tissue surrounding redness - Labs CBC & Chem 7: 11/11/21 07:26 11/11/21 07:26 Labs: Abnormal Lab Results - Last 24 Hours (Table) 11/10/21 11/10/21 11/11/21 Range/Units 17:08 20:30 07:04 RBC (4.40-5.60) X 10*6/uL Hgb (13.0-17.0) g/dL Hct (39.6-50.0) % MCH (27.0-32.0) pg MCHC (32.0-37.0) g/dL Eosinophils # (0.04-0.35) X 10*3/uL Chloride (96-109) mmol/L Carbon Dioxide (20.0-27.5) mmol/L Anion Gap (10.00-18.00) mmol/L Creatinine (0.6-1.5) mg/dL Est GFR (CKD-EPI)AfAm (60.0-200.0) Est GFR (CKD-EPI)NonAf (60.0-200.0) BUN/Creatinine Ratio (12.00-20.00) Ratio Glucose (70-110) mg/dL POC Glucose (mg/dL) 262 H 229 H 194 H (75-99) mg/dL Calcium (8.7-10.3) mg/dL Total Bilirubin (0.30-1.20) mg/dL AST (14-35) U/L ALT (10-49) U/L Total Protein (6.2-8.2) g/dL Albumin (3.8-4.9) g/dL Albumin/Globulin Ratio (1.60-3.17) g/dL 11/11/21 11/11/21 11/11/21 Range/Units 07:26 07:26 11:22 RBC 3.31 L (4.40-5.60) X 10*6/uL Hgb 8.9 L (13.0-17.0) g/dL Hct 29.8 L (39.6-50.0) % MCH 26.9 L (27.0-32.0) pg MCHC 29.9 L (32.0-37.0) g/dL Eosinophils # 0.40 H (0.04-0.35) X 10*3/uL Chloride 112 H (96-109) mmol/L Carbon Dioxide 19.7 L (20.0-27.5) mmol/L Anion Gap 9.30 L (10.00-18.00) mmol/L Creatinine 1.9 H (0.6-1.5) mg/dL Est GFR (CKD-EPI)AfAm 43.1 L (60.0-200.0) Est GFR (CKD-EPI)NonAf 37.2 L (60.0-200.0) BUN/Creatinine Ratio 11.74 L (12.00-20.00) Ratio Glucose 176 H (70-110) mg/dL POC Glucose (mg/dL) 205 H (75-99) mg/dL Calcium 8.1 L (8.7-10.3) mg/dL Total Bilirubin <0.15 L (0.30-1.20) mg/dL AST 10 L (14-35) U/L ALT <5 L (10-49) U/L Total Protein 5.7 L (6.2-8.2) g/dL Albumin 2.9 L (3.8-4.9) g/dL Albumin/Globulin Ratio 1.04 L (1.60-3.17) g/dL Microbiology - Last 24 Hours (Table) 11/10/21 11:19 Blood Culture - Preliminary Blood No Growth after 24 hours Assessment and Plan (1) Decubitus ulcer of foot Current Visit: Yes Status: Acute Code(s): L89.899 - PRESSURE ULCER OF OTHER SITE, UNSPECIFIED STAGE SNOMED Code(s): 2027670321 Plan: 1patient with right lateral heel/foot area diabetic foot ulcer started with debridement of the callus by his husbandry technician few weeks 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 2patient with a borderline kidney function high risk of nephrotoxicity. 3local wound culture has been obtained to guide further antibiotic therapy. 4patient to continue with Zosyn while waiting for the cultures to finalize. 5local wound care with taeoney change daily Time with Patient: Less than 30
[2021-11-12] MEDS: MORPHINE SULFATE 2 MG/ML SYRINGE IVP PRN ×7 (00:54→23:46)
[2021-11-12] MEDS: HYDROcodone/APAP 10-325MG 1 EACH TAB PO PRN ×3 (03:40→15:39)
[2021-11-12 06:58] LABS: Glucose,Whole Blood 210 mg/dL (75-99)
[2021-11-12] MEDS ORDERED: INSULIN ASPART (NovoLOG) 100 UNIT/ML VIAL SQ SCH (07:30)
[2021-11-12] MEDS: INSULIN DETEMIR (LEVEMIR) 100 UNIT/ML SYR SQ SCH ×2 (07:32→20:59)
[2021-11-12] MEDS: INSULIN ASPART (NovoLOG) 100 UNIT/ML VIAL SQ SCH ×4 (07:32→20:59)
[2021-11-12] MEDS: amLODIPine 10 MG TAB PO SCH (07:33)
[2021-11-12] MEDS: HEPARIN SODIUM,PORCINE/PF 5,000 UNIT/0.5 ML SYRINGE SQ SCH ×4 (07:33→23:45)
[2021-11-12] MEDS: GABAPENTIN 100 MG CAP PO SCH ×3 (07:33→20:58)
[2021-11-12] MEDS: TICAGRELOR 90 MG TAB PO SCH ×2 (07:33→20:58)
[2021-11-12] MEDS: PIPERACILLIN-TAZOBACTAM 3.375 GM in SODIUM CHLORIDE 0.9% 100 ML IVPB SCH ×2 (07:33→15:39)
[2021-11-12] MEDS: carvediloL 12.5 MG TAB PO SCH ×2 (07:33→16:55)
[2021-11-12] MEDS: levETIRAcetam 500 MG TAB PO SCH ×2 (08:41→20:58)
[2021-11-12] MEDS: SODIUM CHLORIDE 0.9% 1,000 ML IV SCH ×2 (09:09→20:30)
[2021-11-12 11:07] LABS: Basophils # (A) 0.04 X 10*3/uL (0.00-0.10); Basophils % (A) 0.6 %; Eosinophils # (A) 0.43 X 10*3/uL (0.04-0.35); Eosinophils % (A) 6.4 %; HCT 30.7 % (39.6-50.0); HGB 9.1 g/dL (13.0-17.0); Immature Grans, Automated 0.4 %; Lymphocytes # (A) 1.31 X 10*3/uL (0.90-5.00); Lymphocytes % (A) 19.4 %; MCH 26.6 pg (27.0-32.0); MCHC 29.6 g/dL (32.0-37.0); MCV 89.8 fL (80.0-97.0); Mean Platelet Volume 9.2 fL (9.5-12.2); Monocytes # (A) 0.69 X 10*3/uL (0.20-1.00); Monocytes % (A) 10.2 %; NRBC Per 100 WBC 0 /100 WBCS (0.0-0.0); Neutrophils # (A) 4.26 X 10*3/uL (1.80-7.70); Platelet Count 221 X 10*3/uL (140-440); RBC 3.42 X 10*6/uL (4.40-5.60); RDW 14.5 % (11.5-14.5); WBC 6.76 X 10*3/uL (4.50-10.00)
--- NOTE | 2021-11-12 11:11 | P.PN ---
Subjective Progress Note Date: 11/12/21 Principal diagnosis: Right Foot wound Patient is seen and examined has a follow-up. He is sitting up in his wheelchair. Vascular surgery was consulted for nonhealing wound to the right foot. Patient states his IV has not been working and has not been getting his IV pain medication. He states he has pain in his right lower extremity. He has previous left uhzgk-hjs-yewd amputation done approximately 6 months ago [place] also due to a nonhealing ulcer. He is currently residing with his daughter. He has been afebrile. He is currently on Zosyn. Objective - Vital Signs Vital signs: Vital Signs Temp 97.7 F 11/12/21 07:51 Pulse 79 11/12/21 07:51 Resp 16 11/12/21 07:51 BP 150/70 11/12/21 07:51 Pulse Ox 94 L 11/12/21 07:51 Intake & Output 11/11/21 11/12/21 11/12/21 18:59 06:59 18:59 Intake Total 200 Output Total 400 Balance 200 -400 Intake: Oral 200 Output: Urine 400 Other: Voiding Method Urinal # Voids 2 - Exam General appearance: The patient is alert, oriented, appears in no acute distress. HET: Head is normocephalic and atraumatic. Pupils are equal and reactive. Neck: Supple without lymphadenopathy. Trachea midline. No audible carotid bruit. Heart: S1 S2. Regular rate and rhythm. Lungs: Clear to auscultation bilaterally. Abdomen: Soft, nontender, nondistended. Extremities: Left lower extremity below the knee amputation stump, well-healed. Right lower extremity with +2 edema and chronic venous changes. Right heel wound with ischemic tissue with bone involvement and erythema. Neurological: No focal deficits. Alert and oriented 3. - Labs CBC & Chem 7: 11/14/21 07:47 11/14/21 07:47 Labs: Abnormal Lab Results - Last 24 Hours (Table) 11/11/21 11/11/21 11/11/21 Range/Units 07:26 07:26 11:22 RBC 3.31 L (4.40-5.60) X 10*6/uL Hgb 8.9 L (13.0-17.0) g/dL Hct 29.8 L (39.6-50.0) % MCH 26.9 L (27.0-32.0) pg MCHC 29.9 L (32.0-37.0) g/dL Eosinophils # 0.40 H (0.04-0.35) X 10*3/uL Chloride 112 H (96-109) mmol/L Carbon Dioxide 19.7 L (20.0-27.5) mmol/L Anion Gap 9.30 L (10.00-18.00) mmol/L Creatinine 1.9 H (0.6-1.5) mg/dL Est GFR (CKD-EPI)AfAm 43.1 L (60.0-200.0) Est GFR (CKD-EPI)NonAf 37.2 L (60.0-200.0) BUN/Creatinine Ratio 11.74 L (12.00-20.00) Ratio Glucose 176 H (70-110) mg/dL POC Glucose (mg/dL) 205 H (75-99) mg/dL Calcium 8.1 L (8.7-10.3) mg/dL Total Bilirubin <0.15 L (0.30-1.20) mg/dL AST 10 L (14-35) U/L ALT <5 L (10-49) U/L Total Protein 5.7 L (6.2-8.2) g/dL Albumin 2.9 L (3.8-4.9) g/dL Albumin/Globulin Ratio 1.04 L (1.60-3.17) g/dL 11/11/21 11/11/21 11/12/21 Range/Units 16:47 20:26 06:57 RBC (4.40-5.60) X 10*6/uL Hgb (13.0-17.0) g/dL Hct (39.6-50.0) % MCH (27.0-32.0) pg MCHC (32.0-37.0) g/dL Eosinophils # (0.04-0.35) X 10*3/uL Chloride (96-109) mmol/L Carbon Dioxide (20.0-27.5) mmol/L Anion Gap (10.00-18.00) mmol/L Creatinine (0.6-1.5) mg/dL Est GFR (CKD-EPI)AfAm (60.0-200.0) Est GFR (CKD-EPI)NonAf (60.0-200.0) BUN/Creatinine Ratio (12.00-20.00) Ratio Glucose (70-110) mg/dL POC Glucose (mg/dL) 256 H 219 H 210 H (75-99) mg/dL Calcium (8.7-10.3) mg/dL Total Bilirubin (0.30-1.20) mg/dL AST (14-35) U/L ALT (10-49) U/L Total Protein (6.2-8.2) g/dL Albumin (3.8-4.9) g/dL Albumin/Globulin Ratio (1.60-3.17) g/dL Microbiology - Last 24 Hours (Table) 11/11/21 13:19 Gram Stain - Preliminary Foot - Right Wound Culture - Preliminary 11/11/21 13:20 Anaerobic Culture - Preliminary Heel - Right 11/10/21 11:19 Blood Culture - Preliminary Blood No Growth after 24 hours Assessment and Plan Assessment: 1. Right diabetic heel wound 2. Diabetes mellitus 3. History of left djhrd-bjf-looo amputation 4. Obesity 5. Chronic kidney disease Plan: 1. Continue IV antibiotics per recommendations from infectious disease 2. Continue local wound care 3. Arterial Doppler ordered and reviewed, CLAUDY right 1.01 4. Patient is scheduled for surgical debridement tomorrow 5. Hold Brilinta tomorrow morning 6. 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 Thank you for this consultation, we will continue to follow. The impression and plan of care has been dictated as directed. Dr. Marie I performed a history and examination of this patient, discussed the same with the dictator. I agree with the dictator's note ,documented as a scribe. Any additional findings or plans will be noted.
[2021-11-12 11:18] LABS: ALT <5 U/L (10-49); AST 12 U/L (14-35); African American GFR (CKD) 46.1 (60.0-200.0); Albumin 3.2 g/dL (3.8-4.9); Alkaline Phosphatase 87 U/L (41-126); BUN/Creat Ratio 12.56 Ratio (12.00-20.00); Blood Urea Nitrogen 22.6 mg/dL (9.0-27.0); Calcium 8.4 mg/dL (8.7-10.3); Carbon Dioxide 21.8 mmol/L (20.0-27.5); Chloride 109 mmol/L (96-109); Globulin 2.9 g/dL (1.6-3.3); Glucose 208 mg/dL (70-110); Magnesium 2.3 mg/dL (1.5-2.4); Non-African American GFR(CKD) 39.7 (60.0-200.0); Potassium 4.7 mmol/L (3.5-5.5); Sodium 140 mmol/L (135-145); Total Bilirubin <0.15 mg/dL (0.30-1.20); Total Protein 6.1 g/dL (6.2-8.2)
--- NOTE | 2021-11-12 11:22 | P.PN ---
Subjective History of present illness: 61-year-old male with a PMH of type II DM, PVD status post left BKA, seizure disorder, and hypertension who presents to the emergency room with complaints of right leg and foot pain and redness. The patient reports that he underwent his left BKA surgery 6 months ago due to a nonhealing ulcer in [place]. He reports being confined to a wheelchair and not taking care of his right leg over the past 2 weeks. Reports worsening erythema of the leg as well as an ulcer on the right heel. He denied any additional complaints. Denies fever, chills, chest pain, shortness of breath, nausea, vomiting, diarrhea. Interval history: 11/12 Patient was seen and examined at the bedside. Patient still complaining of left foot pain but well-controlled with IV and oral medications. Patient denies any chest pain or shortness of breath. Patient is scheduled for debridement tomorrow. Kidney function getting worse even with IV fluids Objective - Vital Signs Vital signs: Vital Signs Temp 97.7 F 11/12/21 07:51 Pulse 79 11/12/21 07:51 Resp 16 11/12/21 07:51 BP 150/70 11/12/21 07:51 Pulse Ox 94 L 11/12/21 07:51 Intake & Output 11/11/21 11/12/21 11/12/21 18:59 06:59 18:59 Intake Total 200 Output Total 400 Balance 200 -400 Intake: Oral 200 Output: Urine 400 Other: Voiding Method Urinal # Voids 2 - Exam Physical examination: General: non toxic, no distress, obese Derm: Right lower extremity erythema extending to knees with chronic venous stasis changes, R feel unstageable ulcer with necrotic center warm, dry Head: atraumatic, normocephalic, symmetric Eyes: EOMI, no lid lag, anicteric sclera, pupils equal round reactive to light ENT: Nose and ears atraumatic, no thrush, no pharyngeal erythema Neck: No thyromegaly, no cervical lymphadenopathy, trachea midline, supple Mouth: no lip lesion, mucus membranes moist Cardiovascular: S1S2 reg, no murmur, positive posterior tibial pulse bilateral, RLE 2+ pitting edema with venous stasis changes, capillary refill less than 2 seconds Lungs: CTA bilateral, no rhonchi, no rales , no accessory muscle use Abdominal: soft, nontender to palpation, no guarding, no appreciable organomegaly, normal bowel sounds Ext: L BKA, right heel wound with ischemic tissue. With appearance of bone involvement and erythema. 2+ edema in the right leg. Neuro: CN II-XI grossly intact, light touch intact all 4 extremities, finger to nose within normal limits, Psych: Alert, oriented, appropriate affect - Labs CBC & Chem 7: 11/12/21 07:40 11/11/21 07:26 Labs: Abnormal Lab Results - Last 24 Hours (Table) 11/11/21 11/11/21 11/11/21 Range/Units 07:26 07:26 11:22 RBC 3.31 L (4.40-5.60) X 10*6/uL Hgb 8.9 L (13.0-17.0) g/dL Hct 29.8 L (39.6-50.0) % MCH 26.9 L (27.0-32.0) pg MCHC 29.9 L (32.0-37.0) g/dL MPV (9.5-12.2) fL Eosinophils # 0.40 H (0.04-0.35) X 10*3/uL Chloride 112 H (96-109) mmol/L Carbon Dioxide 19.7 L (20.0-27.5) mmol/L Anion Gap 9.30 L (10.00-18.00) mmol/L Creatinine 1.9 H (0.6-1.5) mg/dL Est GFR (CKD-EPI)AfAm 43.1 L (60.0-200.0) Est GFR (CKD-EPI)NonAf 37.2 L (60.0-200.0) BUN/Creatinine Ratio 11.74 L (12.00-20.00) Ratio Glucose 176 H (70-110) mg/dL POC Glucose (mg/dL) 205 H (75-99) mg/dL Calcium 8.1 L (8.7-10.3) mg/dL Total Bilirubin <0.15 L (0.30-1.20) mg/dL AST 10 L (14-35) U/L ALT <5 L (10-49) U/L Total Protein 5.7 L (6.2-8.2) g/dL Albumin 2.9 L (3.8-4.9) g/dL Albumin/Globulin Ratio 1.04 L (1.60-3.17) g/dL 11/11/21 11/11/21 11/12/21 Range/Units 16:47 20:26 06:57 RBC (4.40-5.60) X 10*6/uL Hgb (13.0-17.0) g/dL Hct (39.6-50.0) % MCH (27.0-32.0) pg MCHC (32.0-37.0) g/dL MPV (9.5-12.2) fL Eosinophils # (0.04-0.35) X 10*3/uL Chloride (96-109) mmol/L Carbon Dioxide (20.0-27.5) mmol/L Anion Gap (10.00-18.00) mmol/L Creatinine (0.6-1.5) mg/dL Est GFR (CKD-EPI)AfAm (60.0-200.0) Est GFR (CKD-EPI)NonAf (60.0-200.0) BUN/Creatinine Ratio (12.00-20.00) Ratio Glucose (70-110) mg/dL POC Glucose (mg/dL) 256 H 219 H 210 H (75-99) mg/dL Calcium (8.7-10.3) mg/dL Total Bilirubin (0.30-1.20) mg/dL AST (14-35) U/L ALT (10-49) U/L Total Protein (6.2-8.2) g/dL Albumin (3.8-4.9) g/dL Albumin/Globulin Ratio (1.60-3.17) g/dL 11/12/21 Range/Units 07:40 RBC 3.42 L (4.40-5.60) X 10*6/uL Hgb 9.1 L (13.0-17.0) g/dL Hct 30.7 L (39.6-50.0) % MCH 26.6 L (27.0-32.0) pg MCHC 29.6 L (32.0-37.0) g/dL MPV 9.2 L (9.5-12.2) fL Eosinophils # 0.43 H (0.04-0.35) X 10*3/uL Chloride (96-109) mmol/L Carbon Dioxide (20.0-27.5) mmol/L Anion Gap (10.00-18.00) mmol/L Creatinine (0.6-1.5) mg/dL Est GFR (CKD-EPI)AfAm (60.0-200.0) Est GFR (CKD-EPI)NonAf (60.0-200.0) BUN/Creatinine Ratio (12.00-20.00) Ratio Glucose (70-110) mg/dL POC Glucose (mg/dL) (75-99) mg/dL Calcium (8.7-10.3) mg/dL Total Bilirubin (0.30-1.20) mg/dL AST (14-35) U/L ALT (10-49) U/L Total Protein (6.2-8.2) g/dL Albumin (3.8-4.9) g/dL Albumin/Globulin Ratio (1.60-3.17) g/dL Microbiology - Last 24 Hours (Table) 11/11/21 13:19 Gram Stain - Preliminary Foot - Right Wound Culture - Preliminary 11/11/21 13:20 Anaerobic Culture - Preliminary Heel - Right 11/10/21 11:19 Blood Culture - Preliminary Blood No Growth after 24 hours Assessment and Plan Assessment: Assessment and plan: Right lower extremity cellulitis with right heel ulcer -Continue with IV antibiotics per infectious disease -Vascular surgery and infectious disease consult -VT negative for osteomyelitis -Vascular surgery plans for debridement November 13 -Arterial Doppler ordered -Pain control Peripheral arterial disease -status post left BKA 6 months ago at [place] -Resume Birlinta and statins -Check LDL Acute kidney injury -Worse even with IV fluids -Renal ultrasound without obstruction -Suspect underlying diabetic nephropathy and chronic kidney disease -Consult nephrology suspect chronic kidney disease secondary to diabetic nephropathy -Monitor for now Type 2 diabetes mellitus with uncontrolled hyperglycemia -A1c 8.9 -Insulin sliding scale and blood glucose monitoring -Continue home medications Lower extremity edema -Check 2-D echo: -Normal systolic function with EF 60-65%. Right ventricle mildly enlarged. Mild aortic valve sclerosis. Suspected Medical noncompliance DVT prophylaxis -Heparin subq The patient is admitted with an anticipated greater than 2 midnight stay for evaluation of RLE cellulitis CODE STATUS: Full Code
[2021-11-12 11:31] LABS: Glucose,Whole Blood 233 mg/dL (75-99)
[2021-11-12] MEDS: BENZOCAINE/MENTHOL LOZENG 1 EACH LOZENGE MUCOUS MEM PRN (12:04)
--- NOTE | 2021-11-12 15:00 | CDI ---
Documentation Clarification Form Date: 11/12/2021 02:49:15 PM From: Shell Knight CCS, CCDS Admit Date: 11/09/2021 07:36:00 PM Patient Name: Rahul Rizvi Visit Number: [id number] Discharge Date: ATTENTION: The Clinical Documentation Specialists (CDI) and [facility] Coding Staff appreciate your assistance in clarifying documentation. Please respond to the clarification below the line at the bottom and electronically sign. The CDI & [facility] Coding staff will review the response and follow-up if needed. Please note: Queries are made part of the Legal Health Record. If you have any questions, please contact the author of this message via ITS. Dr. Sydni Nash: Suspect Chronic Kidney Disease secondary to Diabetic Nephropathy is documented in the 11/10, 11/11 & 11/12 Attending Physician Progress Notes without further specificity of the CKD. Additional clarification regarding the stage of CKD is requested. History/Risk Factors per the 11/09 H/P: IDDM II, Left BKA, Seizure Disorder, Hypertension, Hyperlipidemia, CVA/TIA, Current Smoker. Clinical Indicators: Presented to the ED on 11/09 via [facility] with right leg swelling. Patient recently moved from [place] and has had not had wound treatment in two weeks. Admit with Pedal edema, Decubitus Ulcer of (right) Foot LABS: BUN: 11/09: 26. 11/10: 22.9. 11/11: 22.3. 11/12: 22.6 Creatinine 11/09: 1.68. 11/10: 1.7. 11/11: 1.9. 11/12: 1.8 GFR: 11/09: 43. 11/10: 43.2. 11/11: 37.2. 11/12: 39.7 No Historical Data, patient is a new to the area. Treatment 11/09: Blood glucose monitoring, O2/prn, IV Dilaudid 0.5 mg x2, IV Morphine 2 mg q4H/prn, IV Vancomycin 500 mls @ 167 mls/hr x1. Please clarify the stage of the CKD, if known: [ ] CKD Stage 3 (GFR 30-59) [ ] CKD Stage 3a (GFR 45-59) [ ] CKD Stage 3b (GFR 30-44) [ ] Other, please specify: [ ] Unable to determine (Template Last revised: September 2020) Unable to determine MTDD
[2021-11-12 16:34] LABS: Glucose,Whole Blood 207 mg/dL (75-99)
[2021-11-12 18:37] LABS: Chol/HDL Ratio 7.37 Ratio; LDL Cholesterol,Calculated 169.7 mg/dL (0.0-131.0)
[2021-11-12 20:49] LABS: Glucose,Whole Blood 266 mg/dL (75-99)
--- NOTE | 2021-11-12 21:04 | P.PN ---
Subjective Progress Note Date: 11/12/21 Principal diagnosis: Right heel diabetic wound infection Patient is a 61 year old male with a past medical history significant for left azkfe-vqm-sqdo amputation in this patient with underlying diabetes presenting to the hospital with a nonhealing wound to the right heel and concern for secondary infection, patient did have MRI completed on 11/10/2021 with no evidence of osteomyelitis. On today's evaluation that is 11/12/2021, the patient is afebrile, the patient is still complaining of pain to the right heel area, the patient denies having any chest pain shortness of breath cough no nausea no vomiting no abdominal pain no diarrhea Objective - Vital Signs Vital signs: Vital Signs Temp 97.7 F 11/12/21 07:51 Pulse 79 11/12/21 07:51 Resp 16 11/12/21 07:51 BP 150/70 11/12/21 07:51 Pulse Ox 94 L 11/12/21 07:51 Intake & Output 11/11/21 11/12/21 11/12/21 18:59 06:59 18:59 Intake Total 200 Output Total 400 Balance 200 -400 Intake: Oral 200 Output: Urine 400 Other: Voiding Method Urinal # Voids 2 - Exam GENERAL DESCRIPTION: Middle-aged male lying in bed in no distress RESPIRATORY SYSTEM: Unlabored breathing , decreased breath sounds at bases HEART: S1 S2 regular rate and rhythm , ABDOMEN: Soft , no tenderness EXTREMITIES: Right lateral heel with some slough tissue surrounding redness - Labs CBC & Chem 7: 11/12/21 07:40 11/12/21 07:40 Labs: Abnormal Lab Results - Last 24 Hours (Table) 11/11/21 11/11/21 11/12/21 Range/Units 16:47 20:26 06:57 RBC (4.40-5.60) X 10*6/uL Hgb (13.0-17.0) g/dL Hct (39.6-50.0) % MCH (27.0-32.0) pg MCHC (32.0-37.0) g/dL MPV (9.5-12.2) fL Eosinophils # (0.04-0.35) X 10*3/uL Anion Gap (10.00-18.00) mmol/L Creatinine (0.6-1.5) mg/dL Est GFR (CKD-EPI)AfAm (60.0-200.0) Est GFR (CKD-EPI)NonAf (60.0-200.0) Glucose (70-110) mg/dL POC Glucose (mg/dL) 256 H 219 H 210 H (75-99) mg/dL Calcium (8.7-10.3) mg/dL Total Bilirubin (0.30-1.20) mg/dL AST (14-35) U/L ALT (10-49) U/L Total Protein (6.2-8.2) g/dL Albumin (3.8-4.9) g/dL Albumin/Globulin Ratio (1.60-3.17) g/dL 11/12/21 11/12/21 11/12/21 Range/Units 07:40 07:40 11:29 RBC 3.42 L (4.40-5.60) X 10*6/uL Hgb 9.1 L (13.0-17.0) g/dL Hct 30.7 L (39.6-50.0) % MCH 26.6 L (27.0-32.0) pg MCHC 29.6 L (32.0-37.0) g/dL MPV 9.2 L (9.5-12.2) fL Eosinophils # 0.43 H (0.04-0.35) X 10*3/uL Anion Gap 9.20 L (10.00-18.00) mmol/L Creatinine 1.8 H (0.6-1.5) mg/dL Est GFR (CKD-EPI)AfAm 46.1 L (60.0-200.0) Est GFR (CKD-EPI)NonAf 39.7 L (60.0-200.0) Glucose 208 H (70-110) mg/dL POC Glucose (mg/dL) 233 H (75-99) mg/dL Calcium 8.4 L (8.7-10.3) mg/dL Total Bilirubin <0.15 L (0.30-1.20) mg/dL AST 12 L (14-35) U/L ALT <5 L (10-49) U/L Total Protein 6.1 L (6.2-8.2) g/dL Albumin 3.2 L (3.8-4.9) g/dL Albumin/Globulin Ratio 1.10 L (1.60-3.17) g/dL Microbiology - Last 24 Hours (Table) 11/10/21 11:19 Blood Culture - Preliminary Blood No Growth after 48 hours 11/11/21 13:19 Gram Stain - Preliminary Foot - Right Wound Culture - Preliminary 11/11/21 13:20 Anaerobic Culture - Preliminary Heel - Right Assessment and Plan (1) Decubitus ulcer of foot Current Visit: Yes Status: Acute Code(s): L89.899 - PRESSURE ULCER OF OTHER SITE, UNSPECIFIED STAGE SNOMED Code(s): 9522189640 Plan: 1patient with right lateral heel/foot area diabetic foot ulcer started with debridement of the callus by 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 2patient with a borderline kidney function high risk of nephrotoxicity. 3local wound culture has been obtained currently growing gram-negative bacilli with ID and sensitivities pending 4patient to continue with Zosyn while waiting for the cultures to finalize. 5local wound care to continue with medahoney change daily Time with Patient: Less than 30
[2021-11-13] MEDS: TICAGRELOR 90 MG TAB PO SCH ×2 (00:39→20:46)
[2021-11-13] MEDS: HYDROcodone/APAP 10-325MG 1 EACH TAB PO PRN ×3 (01:13→22:39)
[2021-11-13] MEDS: PIPERACILLIN-TAZOBACTAM 3.375 GM in SODIUM CHLORIDE 0.9% 100 ML IVPB SCH ×3 (01:19→15:16)
[2021-11-13] MEDS: MORPHINE SULFATE 2 MG/ML SYRINGE IVP PRN ×6 (02:35→20:46)
[2021-11-13] MEDS: LACTATED RINGERS 1,000 ML IV SCH (06:47)
[2021-11-13 06:56] LABS: Glucose,Whole Blood 166 mg/dL (75-99)
[2021-11-13] MEDS: INSULIN ASPART (NovoLOG) 100 UNIT/ML VIAL SQ SCH ×4 (07:10→20:45)
[2021-11-13] MEDS: SODIUM CHLORIDE 0.9% 1,000 ML IV SCH ×2 (07:25→20:47)
[2021-11-13] MEDS: ATORVASTATIN 40 MG TAB PO SCH (07:55)
[2021-11-13] MEDS: GABAPENTIN 100 MG CAP PO SCH ×3 (07:55→20:45)
[2021-11-13] MEDS: amLODIPine 10 MG TAB PO SCH (07:55)
[2021-11-13] MEDS: levETIRAcetam 500 MG TAB PO SCH ×2 (07:55→20:46)
[2021-11-13] MEDS: carvediloL 12.5 MG TAB PO SCH ×2 (07:55→17:06)
[2021-11-13] MEDS: HEPARIN SODIUM,PORCINE/PF 5,000 UNIT/0.5 ML SYRINGE SQ SCH ×2 (07:56→15:26)
[2021-11-13] MEDS: INSULIN DETEMIR (LEVEMIR) 100 UNIT/ML SYR SQ SCH ×2 (08:01→20:45)
[2021-11-13 10:18] LABS: Basophils # (A) 0.05 X 10*3/uL (0.00-0.10); Basophils % (A) 0.8 %; Eosinophils % (A) 6.1 %; HCT 28.4 % (39.6-50.0); HGB 8.5 g/dL (13.0-17.0); Immature Grans, Automated 0.6 %; Lymphocytes # (A) 1.21 X 10*3/uL (0.90-5.00); Lymphocytes % (A) 18.5 %; MCH 27.1 pg (27.0-32.0); MCHC 29.9 g/dL (32.0-37.0); MCV 90.4 fL (80.0-97.0); Mean Platelet Volume 9.2 fL (9.5-12.2); Monocytes # (A) 0.57 X 10*3/uL (0.20-1.00); Monocytes % (A) 8.7 %; NRBC Per 100 WBC 0 /100 WBCS (0.0-0.0); Neutrophils # (A) 4.28 X 10*3/uL (1.80-7.70); Neutrophils % (A) 65.3 %; Platelet Count 221 X 10*3/uL (140-440); RBC 3.14 X 10*6/uL (4.40-5.60); RDW 14.5 % (11.5-14.5); WBC 6.55 X 10*3/uL (4.50-10.00)
[2021-11-13 10:29] LABS: ALT <5 U/L (10-49); AST 11 U/L (14-35); African American GFR (CKD) 43.1 (60.0-200.0); Albumin 3.1 g/dL (3.8-4.9); Albumin/Globulin Ratio 1.15 (1.60-3.17); Alkaline Phosphatase 79 U/L (41-126); BUN/Creat Ratio 11.89 Ratio (12.00-20.00); Blood Urea Nitrogen 22.6 mg/dL (9.0-27.0); Calcium 8.2 mg/dL (8.7-10.3); Carbon Dioxide 18.8 mmol/L (20.0-27.5); Chloride 112 mmol/L (96-109); Globulin 2.7 g/dL (1.6-3.3); Glucose 168 mg/dL (70-110); Magnesium 2.2 mg/dL (1.5-2.4); Non-African American GFR(CKD) 37.2 (60.0-200.0); Potassium 4.7 mmol/L (3.5-5.5); Sodium 140 mmol/L (135-145); Total Bilirubin <0.15 mg/dL (0.30-1.20); Total Protein 5.8 g/dL (6.2-8.2)
--- NOTE | 2021-11-13 10:33 | P.NPCON ---
History of Present Illness - Reason for Consult acute renal failure - History of Present Illness Reason for consultation: Acute kidney injury History of present illness: Patient is a 61-year-old male seen in renal consultation for acute kidney injury. Patient's creatinine on admission was 1.68 and peaked at 1.9 on 11/11/2021. It was 1.8 yesterday. Labs from today are pending. Patient presented to the hospital on 11/09/2021 due to wound on his right foot. Patient states the wound has been there for a few months now and he did see a physician in [place] while he was on vacation visiting his son. Patient states the pain has been getting worse and is also progressively getting more swollen and therefore he came to the hospital. He denies any drainage. Patient denies seeing a laborer sawmill in the past. States he was diagnosed with diabetes within the last 5 years. He denies any active use of nonsteroidals. Denies family history of renal disease. No vomiting or diarrhea. No chest pain or shortness of breath. Oral intake has been good. He is receiving IV fluids. Also has history of left BKA due to nonhealing wound/infection. Hemodynamically stable. No hematuria. Vital signs are stable. General: Awake and alert. No acute distress. HEENT: Head exam is unremarkable. LUNGS: Breath sounds decreased. HEART: Rate and Rhythm are regular. ABDOMEN: Soft, no distention. Obese. EXTREMITITES: 1+ edema right lower extremity. Chronic changes noted. No drainage. Foot wrapped. Left BKA. Past Medical History Past Medical History: CVA/TIA, Diabetes Mellitus, Hypertension Additional Past Medical History / Comment(s): BKA right leg History of Any Multi-Drug Resistant Organisms: None Reported Additional Past Surgical History / Comment(s): BKA right leg Past Anesthesia/Blood Transfusion Reactions: No Reported Reaction Past Psychological History: No Psychological Hx Reported Smoking Status: Current every day smoker Past Alcohol Use History: None Reported Past Drug Use History: None Reported Medications and Allergies Home Medications Medication Instructions Recorded Confirmed Type Carvedilol [Coreg] 12.5 mg PO BID-W/MEALS 11/09/21 11/09/21 History Insulin Glargine,Hum.rec.anlog 40 unit SQ HS 11/09/21 11/09/21 History [Basaglar Kwikpen U-100] Insulin Lispro [humaLOG Kwikpen] 15 units SQ AC-TID 11/09/21 11/09/21 History Ketoconazole 2% Shampoo [Nizoral] 1 applic TOPICAL DIRECTED 11/09/21 11/09/21 History Ticagrelor [Brilinta] 90 mg PO BID 11/09/21 11/09/21 History amLODIPine [Norvasc] 10 mg PO DAILY 11/09/21 11/09/21 History levETIRAcetam [Keppra] 1,000 mg PO BID 11/09/21 11/09/21 History Allergies Allergy/AdvReac Type Severity Reaction Status Date / Time No Known Allergies Allergy Verified 11/09/21 17:03 Physical Exam Vitals: Vital Signs Temp Pulse Resp BP BP Pulse Ox 11/13/21 07:37 18 11/13/21 07:16 98.0 F 75 18 133/71 92 L 11/13/21 06:49 18 11/13/21 01:15 99.0 F 85 15 154/68 92 L 11/12/21 19:27 98.7 F 83 16 136/69 91 L 11/12/21 15:23 94 L 11/12/21 14:00 98.4 F 78 20 138/68 93 L Intake and Output 11/12/21 11/13/21 11/13/21 22:59 06:59 14:59 Intake Total 2160 Output Total 550 550 Balance 1610 -550 Intake: Oral 2160 Output: Urine 550 550 Other: Voiding Method Urinal # Bowel Movements 1 Results - Lab Results Most recent lab results Calcium 8.4 mg/dL (8.7-10.3) L 11/12/21 07:40 Magnesium 2.3 mg/dL (1.5-2.4) 11/12/21 07:40 11/13/21 06:56 11/12/21 07:40 Assessment and Plan Plan: Assessment: 1. Acute kidney injury versus underlying chronic kidney disease. Creatinine stable in the range of 1.7 and 1.9 this admission. Unknown baseline renal function. Etiologies like to diabetic kidney disease. Kidney ultrasound showed no evidence of hydronephrosis. 2. Right foot nonhealing wound. Scheduled for debridement today. Vascular surgery and infectious disease following. Wound culture positive for gram- negative bacilli. 3. Status post left BKA. 4. Diabetes mellitus. 5. Anemia. Rule out iron deficiency. 6. Benign hypertension. Stable. Plan: Decrease IV fluids to 50 mL an hour. Check UA. Check iron studies. Check bladder scan to rule out urinary retention. Avoid nephrotoxins. Continue to monitor renal function and urine output. Discussed with the patient that he will need to follow-up outpatient to establish CKD care. Thank you for the consultation. I will continue to follow the patient with you during his hospital stay.
[2021-11-13] MEDS ORDERED: LACTATED RINGERS 1,000 ML IV ONE (10:48)
[2021-11-13] MEDS ORDERED: fentaNYL (PF) 50 MCG/ML 2 ML AMP ONE (11:43)
[2021-11-13] MEDS ORDERED: PROPOFOL 10 MG/ML 20 ML VIAL IV ONE (11:43)
[2021-11-13] MEDS ORDERED: LIDOCAINE 2% INJ 20 MG/ML (2 ML VIAL) ONE (11:43)
[2021-11-13] MEDS ORDERED: MIDAZOLAM 2 MG/2 ML VIAL ONE (11:43)
[2021-11-13 12:38] LABS: Glucose,Whole Blood 145 mg/dL (75-99)
[2021-11-13] MEDS ORDERED: HYDROmorphone 0.5 MG/0.5 ML SYRINGE IVP ONE (12:40)
[2021-11-13 14:34] LABS: Appearance,Urine Clear (Clear); Bilirubin,Urine Negative (Negative); Blood,Urine Small (Negative); Color,Urine Light Yellow; Glucose,Urine (UA) 2+ (Negative); Hyaline Casts,Urine 1 /lpf (0-2); Ketones,Urine Negative (Negative); Leukocyte Esterase,Urine Negative (Negative); Mucus,Urine Rare /hpf; Nitrite,Urine Negative (Negative); Protein,Urine 3+ (Negative); RBC,Urine 1 /hpf (0-5); Specific Gravity,Urine 1.015 (1.001-1.035); Squamous Epithelial Cell,Urine 1 /hpf (0-4); Urobilinogen,Urine <2.0 mg/dL (<2.0); WBC,Urine 2 /hpf (0-5)
[2021-11-13 16:43] LABS: Glucose,Whole Blood 303 mg/dL (75-99)
--- NOTE | 2021-11-13 18:19 | P.PN ---
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 In the ER he underwent an extensive evaluation was ultimately admitted for right lower extremity cellulitis, possible osteomyelitis, and infected ulcer. He was seen by vascular surgery and infectious disease. He was maintained on IV antibiotics. On 11/13/21 patient underwent right heel debridement. His initial wound cultures are growing gram-negative bacilli. Patient seen and examined at bedside. He complains fo pain in right foot and being hundry. No chst pain, sob or nausea, does not like the food. General: non toxic, no distress, appears at stated age Derm: warm, dry Head: atraumatic, normocephalic, symmetric Eyes: EOMI, no lid lag, anicteric sclera Mouth: no lip lesion, mucus membranes moist Cardiovascular: S1S2 reg, no murmur, positive posterior tibial pulse bilateral, Lungs: Coarse breath sounds bilateral, no rhonchi, no rales , no accessory muscle use Abdominal: soft, nontender to palpation, no guarding, no appreciable organomegaly Ext: no gross muscle atrophy, 1+ edema right lower extremity, BKA left Neuro: CN II-XI grossly intact, no focal neuro deficits Psych: Alert, oriented, appropriate affect Assessment/plan Right heel wound with cellulitis PAD Prior BKA - s/p I and D - vascular recs - ID recs - zosyn NAM vs CKD - cr stable - nephro recs - await iron studies - follow Cr Diabetes mellitus type 2 with hyperglycemia, neuropath -A1c 8.9 - levemir - SSI anemia - unknown etilogy - check Iron studies CVA - statin, Brillenta Tobacco abuse - cessation Dyslipidemia - statin Objective - Vital Signs Vital signs: Vital Signs Temp 97.4 F L 11/13/21 14:00 Pulse 97 11/13/21 14:00 Resp 19 11/13/21 14:00 BP 167/73 11/13/21 14:00 Pulse Ox 93 L 11/13/21 15:30 Intake & Output 11/12/21 11/13/21 11/13/21 18:59 06:59 18:59 Intake Total 2160 1240 Output Total 1250 1355 Balance 910 -115 Intake: IV 1000 Sodium Chloride 0.9% 1, 600 000 ml @ 50 mls/hr IV . Q20H [facility] Rx#:[id number] Oral 2160 240 Output: Urine 1250 1350 Estimated Blood Loss 5 Other: Voiding Method Urinal # Bowel Movements 1 1 - Labs CBC & Chem 7: 11/13/21 06:56 11/13/21 06:56 Labs: Abnormal Lab Results - Last 24 Hours (Table) 11/12/21 11/12/21 11/13/21 Range/Units 07:40 20:46 06:54 RBC (4.40-5.60) X 10*6/uL Hgb (13.0-17.0) g/dL Hct (39.6-50.0) % MCHC (32.0-37.0) g/dL MPV (9.5-12.2) fL Eosinophils # (0.04-0.35) X 10*3/uL Chloride (96-109) mmol/L Carbon Dioxide (20.0-27.5) mmol/L Anion Gap (10.00-18.00) mmol/L Creatinine (0.6-1.5) mg/dL Est GFR (CKD-EPI)AfAm (60.0-200.0) Est GFR (CKD-EPI)NonAf (60.0-200.0) BUN/Creatinine Ratio (12.00-20.00) Ratio Glucose (70-110) mg/dL POC Glucose (mg/dL) 266 H 166 H (75-99) mg/dL Calcium (8.7-10.3) mg/dL Total Bilirubin (0.30-1.20) mg/dL AST (14-35) U/L ALT (10-49) U/L Total Protein (6.2-8.2) g/dL Albumin (3.8-4.9) g/dL Albumin/Globulin Ratio (1.60-3.17) g/dL Triglycerides 206.00 H (0.00-149.00) mg/dL Cholesterol 244.00 H (0.00-200.00) mg/dL LDL Cholesterol, Calc 169.7 H (0.0-131.0) mg/dL VLDL Cholesterol, Calc 41.20 H (5.00-40.00) mg/dL HDL Cholesterol 33.10 L (40.00-60.00) mg/dL Urine Protein (Negative) Urine Glucose (UA) (Negative) Urine Blood (Negative) Urine Mucus (None) /hpf 11/13/21 11/13/21 11/13/21 Range/Units 06:56 06:56 12:37 RBC 3.14 L (4.40-5.60) X 10*6/uL Hgb 8.5 L (13.0-17.0) g/dL Hct 28.4 L (39.6-50.0) % MCHC 29.9 L (32.0-37.0) g/dL MPV 9.2 L (9.5-12.2) fL Eosinophils # 0.40 H (0.04-0.35) X 10*3/uL Chloride 112 H (96-109) mmol/L Carbon Dioxide 18.8 L (20.0-27.5) mmol/L Anion Gap 9.20 L (10.00-18.00) mmol/L Creatinine 1.9 H (0.6-1.5) mg/dL Est GFR (CKD-EPI)AfAm 43.1 L (60.0-200.0) Est GFR (CKD-EPI)NonAf 37.2 L (60.0-200.0) BUN/Creatinine Ratio 11.89 L (12.00-20.00) Ratio Glucose 168 H (70-110) mg/dL POC Glucose (mg/dL) 145 H (75-99) mg/dL Calcium 8.2 L (8.7-10.3) mg/dL Total Bilirubin <0.15 L (0.30-1.20) mg/dL AST 11 L (14-35) U/L ALT <5 L (10-49) U/L Total Protein 5.8 L (6.2-8.2) g/dL Albumin 3.1 L (3.8-4.9) g/dL Albumin/Globulin Ratio 1.15 L (1.60-3.17) g/dL Triglycerides (0.00-149.00) mg/dL Cholesterol (0.00-200.00) mg/dL LDL Cholesterol, Calc (0.0-131.0) mg/dL VLDL Cholesterol, Calc (5.00-40.00) mg/dL HDL Cholesterol (40.00-60.00) mg/dL Urine Protein (Negative) Urine Glucose (UA) (Negative) Urine Blood (Negative) Urine Mucus (None) /hpf 11/13/21 11/13/21 Range/Units 14:25 16:41 RBC (4.40-5.60) X 10*6/uL Hgb (13.0-17.0) g/dL Hct (39.6-50.0) % MCHC (32.0-37.0) g/dL MPV (9.5-12.2) fL Eosinophils # (0.04-0.35) X 10*3/uL Chloride (96-109) mmol/L Carbon Dioxide (20.0-27.5) mmol/L Anion Gap (10.00-18.00) mmol/L Creatinine (0.6-1.5) mg/dL Est GFR (CKD-EPI)AfAm (60.0-200.0) Est GFR (CKD-EPI)NonAf (60.0-200.0) BUN/Creatinine Ratio (12.00-20.00) Ratio Glucose (70-110) mg/dL POC Glucose (mg/dL) 303 H (75-99) mg/dL Calcium (8.7-10.3) mg/dL Total Bilirubin (0.30-1.20) mg/dL AST (14-35) U/L ALT (10-49) U/L Total Protein (6.2-8.2) g/dL Albumin (3.8-4.9) g/dL Albumin/Globulin Ratio (1.60-3.17) g/dL Triglycerides (0.00-149.00) mg/dL Cholesterol (0.00-200.00) mg/dL LDL Cholesterol, Calc (0.0-131.0) mg/dL VLDL Cholesterol, Calc (5.00-40.00) mg/dL HDL Cholesterol (40.00-60.00) mg/dL Urine Protein 3+ H (Negative) Urine Glucose (UA) 2+ H (Negative) Urine Blood Small H (Negative) Urine Mucus Rare H (None) /hpf Microbiology - Last 24 Hours (Table) 11/10/21 11:19 Blood Culture - Preliminary Blood No Growth after 72 hours 11/11/21 13:19 Gram Stain - Preliminary Foot - Right Wound Culture - Preliminary Gram Neg Bacilli
[2021-11-13 20:34] LABS: Glucose,Whole Blood 246 mg/dL (75-99)
--- NOTE | 2021-11-13 21:20 | P.PN ---
Subjective Progress Note Date: 11/13/21 Principal diagnosis: Right heel diabetic wound infection Patient is a 61 year old male with a past medical history significant for left [id number] amputation in this patient with underlying diabetes presenting to the hospital with a nonhealing wound to the right heel and concern for secondary infection, patient did have MRI completed on 11/10/2021 with no evidence of osteomyelitis. The patient is status post surgical debridement of his right heel wound completed on 11/13/2021 On today's evaluation that is 11/13/2021, the patient denies any fever or chills, the patient pain to the right heel area is currently controlled, the patient denies having any chest pain shortness of breath cough no nausea no vomiting no abdominal pain no diarrhea Objective - Vital Signs Vital signs: Vital Signs Temp 97.5 F L 11/13/21 12:24 Pulse 84 11/13/21 12:54 Resp 16 11/13/21 12:54 BP 157/73 11/13/21 12:54 Pulse Ox 95 11/13/21 12:54 Intake & Output 11/12/21 11/13/21 11/13/21 18:59 06:59 18:59 Intake Total 2160 400 Output Total 1250 555 Balance 910 -155 Intake: IV 400 Oral 2160 Output: Urine 1250 550 Estimated Blood Loss 5 Other: Voiding Method Urinal # Bowel Movements 1 - Exam GENERAL DESCRIPTION: Middle-aged male lying in bed in no distress RESPIRATORY SYSTEM: Unlabored breathing , decreased breath sounds at bases HEART: S1 S2 regular rate and rhythm , ABDOMEN: Soft , no tenderness EXTREMITIES: Right lateral heel with some slough tissue surrounding redness - Labs CBC & Chem 7: 11/13/21 06:56 11/13/21 06:56 Labs: Abnormal Lab Results - Last 24 Hours (Table) 11/12/21 11/12/21 11/12/21 Range/Units 07:40 16:32 20:46 RBC (4.40-5.60) X 10*6/uL Hgb (13.0-17.0) g/dL Hct (39.6-50.0) % MCHC (32.0-37.0) g/dL MPV (9.5-12.2) fL Eosinophils # (0.04-0.35) X 10*3/uL Chloride (96-109) mmol/L Carbon Dioxide (20.0-27.5) mmol/L Anion Gap (10.00-18.00) mmol/L Creatinine (0.6-1.5) mg/dL Est GFR (CKD-EPI)AfAm (60.0-200.0) Est GFR (CKD-EPI)NonAf (60.0-200.0) BUN/Creatinine Ratio (12.00-20.00) Ratio Glucose (70-110) mg/dL POC Glucose (mg/dL) 207 H 266 H (75-99) mg/dL Calcium (8.7-10.3) mg/dL Total Bilirubin (0.30-1.20) mg/dL AST (14-35) U/L ALT (10-49) U/L Total Protein (6.2-8.2) g/dL Albumin (3.8-4.9) g/dL Albumin/Globulin Ratio (1.60-3.17) g/dL Triglycerides 206.00 H (0.00-149.00) mg/dL Cholesterol 244.00 H (0.00-200.00) mg/dL LDL Cholesterol, Calc 169.7 H (0.0-131.0) mg/dL VLDL Cholesterol, Calc 41.20 H (5.00-40.00) mg/dL HDL Cholesterol 33.10 L (40.00-60.00) mg/dL 11/13/21 11/13/21 11/13/21 Range/Units 06:54 06:56 06:56 RBC 3.14 L (4.40-5.60) X 10*6/uL Hgb 8.5 L (13.0-17.0) g/dL Hct 28.4 L (39.6-50.0) % MCHC 29.9 L (32.0-37.0) g/dL MPV 9.2 L (9.5-12.2) fL Eosinophils # 0.40 H (0.04-0.35) X 10*3/uL Chloride 112 H (96-109) mmol/L Carbon Dioxide 18.8 L (20.0-27.5) mmol/L Anion Gap 9.20 L (10.00-18.00) mmol/L Creatinine 1.9 H (0.6-1.5) mg/dL Est GFR (CKD-EPI)AfAm 43.1 L (60.0-200.0) Est GFR (CKD-EPI)NonAf 37.2 L (60.0-200.0) BUN/Creatinine Ratio 11.89 L (12.00-20.00) Ratio Glucose 168 H (70-110) mg/dL POC Glucose (mg/dL) 166 H (75-99) mg/dL Calcium 8.2 L (8.7-10.3) mg/dL Total Bilirubin <0.15 L (0.30-1.20) mg/dL AST 11 L (14-35) U/L ALT <5 L (10-49) U/L Total Protein 5.8 L (6.2-8.2) g/dL Albumin 3.1 L (3.8-4.9) g/dL Albumin/Globulin Ratio 1.15 L (1.60-3.17) g/dL Triglycerides (0.00-149.00) mg/dL Cholesterol (0.00-200.00) mg/dL LDL Cholesterol, Calc (0.0-131.0) mg/dL VLDL Cholesterol, Calc (5.00-40.00) mg/dL HDL Cholesterol (40.00-60.00) mg/dL 11/13/21 Range/Units 12:37 RBC (4.40-5.60) X 10*6/uL Hgb (13.0-17.0) g/dL Hct (39.6-50.0) % MCHC (32.0-37.0) g/dL MPV (9.5-12.2) fL Eosinophils # (0.04-0.35) X 10*3/uL Chloride (96-109) mmol/L Carbon Dioxide (20.0-27.5) mmol/L Anion Gap (10.00-18.00) mmol/L Creatinine (0.6-1.5) mg/dL Est GFR (CKD-EPI)AfAm (60.0-200.0) Est GFR (CKD-EPI)NonAf (60.0-200.0) BUN/Creatinine Ratio (12.00-20.00) Ratio Glucose (70-110) mg/dL POC Glucose (mg/dL) 145 H (75-99) mg/dL Calcium (8.7-10.3) mg/dL Total Bilirubin (0.30-1.20) mg/dL AST (14-35) U/L ALT (10-49) U/L Total Protein (6.2-8.2) g/dL Albumin (3.8-4.9) g/dL Albumin/Globulin Ratio (1.60-3.17) g/dL Triglycerides (0.00-149.00) mg/dL Cholesterol (0.00-200.00) mg/dL LDL Cholesterol, Calc (0.0-131.0) mg/dL VLDL Cholesterol, Calc (5.00-40.00) mg/dL HDL Cholesterol (40.00-60.00) mg/dL Microbiology - Last 24 Hours (Table) 11/10/21 11:19 Blood Culture - Preliminary Blood No Growth after 72 hours 11/11/21 13:19 Gram Stain - Preliminary Foot - Right Wound Culture - Preliminary Gram Neg Bacilli Assessment and Plan (1) Decubitus ulcer of foot Current Visit: Yes Status: Acute Code(s): L89.899 - PRESSURE ULCER OF OTHER SITE, UNSPECIFIED STAGE SNOMED Code(s): 3714096269 Plan: 1patient with right lateral heel/foot area diabetic foot ulcer started with debridement of the callus by his design lead few weeks ago with concern for s econdary cellulitis, plain x-ray and MRI did not show any evidence of osteomyelitis at this point and will need to cover for the polymicrobial marianna usually associated with diabetic foot infection. 2patient with a borderline kidney function high risk of nephrotoxicity. 3local wound culture has been obtained currently growing gram-negative bacilli with ID and sensitivities pending, the patient also have surgical debridement completed today and deep culture those to be followed 4patient is currently being treated with Zosyn while waiting for the cultures to finalize.
[2021-11-14] MEDS: PIPERACILLIN-TAZOBACTAM 3.375 GM in SODIUM CHLORIDE 0.9% 100 ML IVPB SCH ×3 (00:32→15:57)
[2021-11-14] MEDS: MORPHINE SULFATE 2 MG/ML SYRINGE IVP PRN ×9 (00:32→22:20)
[2021-11-14] MEDS: HEPARIN SODIUM,PORCINE/PF 5,000 UNIT/0.5 ML SYRINGE SQ SCH ×3 (01:26→16:09)
[2021-11-14 06:10] LABS: % Iron Saturation 13.75 (15.00-50.00); Ferritin 66.6 ng/mL (22.0-322.0)
[2021-11-14] MEDS: LACTATED RINGERS 1,000 ML IV SCH (07:25)
[2021-11-14 07:55] LABS: Glucose,Whole Blood 234 mg/dL (75-99)
[2021-11-14] MEDS: carvediloL 12.5 MG TAB PO SCH ×2 (08:17→17:11)
[2021-11-14] MEDS: amLODIPine 10 MG TAB PO SCH (08:17)
[2021-11-14] MEDS: TICAGRELOR 90 MG TAB PO SCH ×2 (08:17→21:10)
[2021-11-14] MEDS: INSULIN ASPART (NovoLOG) 100 UNIT/ML VIAL SQ SCH ×4 (08:17→21:09)
[2021-11-14] MEDS: GABAPENTIN 100 MG CAP PO SCH ×3 (08:17→21:09)
[2021-11-14] MEDS: ATORVASTATIN 40 MG TAB PO SCH (08:17)
[2021-11-14] MEDS: HYDROcodone/APAP 10-325MG 1 EACH TAB PO PRN ×3 (08:46→20:23)
[2021-11-14] MEDS: levETIRAcetam 500 MG TAB PO SCH ×2 (08:46→21:09)
--- NOTE | 2021-11-14 10:22 | P.PN ---
Subjective Progress Note Date: 11/14/21 Principal diagnosis: Right Foot wound Patient is seen and examined his follow-up. Yesterday he underwent debridement of diabetic ulcer of right foot. He is complaining of some left hand swelling. Yesterday right lip is came by and applied a stump admissions manager to the left below th e knee amputation. He states that he will follow-up with them on discharge for prostatic. Preliminary wound culture showing gram-negative bacilli. Patient currently on Zosyn with infectious disease following. Patient states he wants to have wound care done here at [facility] as he [place]. He's been afebrile. Objective - Vital Signs Vital signs: Vital Signs Temp 97.9 F 11/14/21 08:00 Pulse 80 11/14/21 08:00 Resp 18 11/14/21 08:00 BP 161/70 11/14/21 08:00 Pulse Ox 91 L 11/14/21 08:00 Intake & Output 11/13/21 11/14/21 11/14/21 18:59 06:59 18:59 Intake Total 1240 Output Total 1355 500 Balance -115 -500 Intake: IV 1000 Sodium Chloride 0.9% 1, 600 000 ml @ 50 mls/hr IV . Q20H [facility] Rx#:[id number] Oral 240 Output: Urine 1350 500 Estimated Blood Loss 5 Other: Voiding Method Urinal Urinal # Bowel Movements 1 - Exam General appearance: The patient is alert, oriented, appears in no acute distress. HET: Head is normocephalic and atraumatic. Pupils are equal and reactive. Neck: Supple without lymphadenopathy. Trachea midline. No audible carotid bruit. Heart: S1 S2. Regular rate and rhythm. Lungs: Clear to auscultation bilaterally. Abdomen: Soft, nontender, nondistended. Extremities: Left lower extremity below the knee amputation stump, with stump admissions manager. Right lower extremity with edema and chronic venous changes. Dressing clean dry and intact. Neurological: No focal deficits. Alert and oriented 3. - Labs CBC & Chem 7: 11/13/21 06:56 11/13/21 06:56 Labs: Abnormal Lab Results - Last 24 Hours (Table) 11/13/21 11/13/21 11/13/21 Range/Units 06:56 06:56 06:56 RBC 3.14 L (4.40-5.60) X 10*6/uL Hgb 8.5 L (13.0-17.0) g/dL Hct 28.4 L (39.6-50.0) % MCHC 29.9 L (32.0-37.0) g/dL MPV 9.2 L (9.5-12.2) fL Eosinophils # 0.40 H (0.04-0.35) X 10*3/uL Chloride 112 H (96-109) mmol/L Carbon Dioxide 18.8 L (20.0-27.5) mmol/L Anion Gap 9.20 L (10.00-18.00) mmol/L Creatinine 1.9 H (0.6-1.5) mg/dL Est GFR (CKD-EPI)AfAm 43.1 L (60.0-200.0) Est GFR (CKD-EPI)NonAf 37.2 L (60.0-200.0) BUN/Creatinine Ratio 11.89 L (12.00-20.00) Ratio Glucose 168 H (70-110) mg/dL POC Glucose (mg/dL) (75-99) mg/dL Calcium 8.2 L (8.7-10.3) mg/dL Iron 33 L (65-175) ug/dL % Saturation 13.75 L (15.00-50.00) Transferrin 172.0 L (204.0-354.0) mg/dL Total Bilirubin <0.15 L (0.30-1.20) mg/dL AST 11 L (14-35) U/L ALT <5 L (10-49) U/L Total Protein 5.8 L (6.2-8.2) g/dL Albumin 3.1 L (3.8-4.9) g/dL Albumin/Globulin Ratio 1.15 L (1.60-3.17) g/dL Urine Protein (Negative) Urine Glucose (UA) (Negative) Urine Blood (Negative) Urine Mucus (None) /hpf 11/13/21 11/13/21 11/13/21 Range/Units 12:37 14:25 16:41 RBC (4.40-5.60) X 10*6/uL Hgb (13.0-17.0) g/dL Hct (39.6-50.0) % MCHC (32.0-37.0) g/dL MPV (9.5-12.2) fL Eosinophils # (0.04-0.35) X 10*3/uL Chloride (96-109) mmol/L Carbon Dioxide (20.0-27.5) mmol/L Anion Gap (10.00-18.00) mmol/L Creatinine (0.6-1.5) mg/dL Est GFR (CKD-EPI)AfAm (60.0-200.0) Est GFR (CKD-EPI)NonAf (60.0-200.0) BUN/Creatinine Ratio (12.00-20.00) Ratio Glucose (70-110) mg/dL POC Glucose (mg/dL) 145 H 303 H (75-99) mg/dL Calcium (8.7-10.3) mg/dL Iron (65-175) ug/dL % Saturation (15.00-50.00) Transferrin (204.0-354.0) mg/dL Total Bilirubin (0.30-1.20) mg/dL AST (14-35) U/L ALT (10-49) U/L Total Protein (6.2-8.2) g/dL Albumin (3.8-4.9) g/dL Albumin/Globulin Ratio (1.60-3.17) g/dL Urine Protein 3+ H (Negative) Urine Glucose (UA) 2+ H (Negative) Urine Blood Small H (Negative) Urine Mucus Rare H (None) /hpf 11/13/21 11/14/21 Range/Units 20:31 07:53 RBC (4.40-5.60) X 10*6/uL Hgb (13.0-17.0) g/dL Hct (39.6-50.0) % MCHC (32.0-37.0) g/dL MPV (9.5-12.2) fL Eosinophils # (0.04-0.35) X 10*3/uL Chloride (96-109) mmol/L Carbon Dioxide (20.0-27.5) mmol/L Anion Gap (10.00-18.00) mmol/L Creatinine (0.6-1.5) mg/dL Est GFR (CKD-EPI)AfAm (60.0-200.0) Est GFR (CKD-EPI)NonAf (60.0-200.0) BUN/Creatinine Ratio (12.00-20.00) Ratio Glucose (70-110) mg/dL POC Glucose (mg/dL) 246 H 234 H (75-99) mg/dL Calcium (8.7-10.3) mg/dL Iron (65-175) ug/dL % Saturation (15.00-50.00) Transferrin (204.0-354.0) mg/dL Total Bilirubin (0.30-1.20) mg/dL AST (14-35) U/L ALT (10-49) U/L Total Protein (6.2-8.2) g/dL Albumin (3.8-4.9) g/dL Albumin/Globulin Ratio (1.60-3.17) g/dL Urine Protein (Negative) Urine Glucose (UA) (Negative) Urine Blood (Negative) Urine Mucus (None) /hpf Microbiology - Last 24 Hours (Table) 11/13/21 12:15 Gram Stain - Preliminary Foot - Right Wound Culture - Preliminary 11/13/21 12:15 Anaerobic Culture - Preliminary Foot - Right 11/10/21 11:19 Blood Culture - Preliminary Blood No Growth after 72 hours Assessment and Plan Assessment: 1. Right diabetic heel wound status post debridement 2. Diabetes mellitus 3. History of left [id number] amputation 4. Obesity 5. Chronic kidney disease Plan: 1. Continue IV antibiotics per recommendations from infectious disease 2. Wound care consulted for further local wound care and outpatient follow-up 3. Arterial Doppler ordered and reviewed, CLAUDY right 1.01 4. May resume Brilinta 5. No further vascular surgical intervention indicated at this time Thank you for this consultation, we will continue to follow. The impression and plan of care has been dictated as directed. Dr. Poole I performed a history and examination of this patient, discussed the same with the dictator. I agree with the dictator's note ,documented as a scribe. Any additional findings or plans will be noted.
--- NOTE | 2021-11-14 10:24 | P.PN ---
Subjective Patient is seen in follow for acute kidney injury. Morning labs pending. Oral intake is good. No vomiting or diarrhea. Denies chest pain or shortness of breath. Vital signs are stable. General: Awake and alert. No acute distress. HEENT: Head exam is unremarkable. LUNGS: Breath sounds decreased. HEART: Rate and Rhythm are regular. ABDOMEN: Soft, obese. EXTREMITITES: BKA noted. Right foot drop. No drainage. Objective - Vital Signs Vital signs: Vital Signs Temp 97.9 F 11/14/21 08:00 Pulse 80 11/14/21 08:00 Resp 18 11/14/21 08:00 BP 161/70 11/14/21 08:00 Pulse Ox 91 L 11/14/21 08:00 Intake & Output 11/13/21 11/14/21 11/14/21 18:59 06:59 18:59 Intake Total 1240 Output Total 1355 500 Balance -115 -500 Intake: IV 1000 Sodium Chloride 0.9% 1, 600 000 ml @ 50 mls/hr IV . Q20H [facility] Rx#:[id number] Oral 240 Output: Urine 1350 500 Estimated Blood Loss 5 Other: Voiding Method Urinal Urinal # Bowel Movements 1 - Labs CBC & Chem 7: 11/13/21 06:56 11/13/21 06:56 Labs: Abnormal Lab Results - Last 24 Hours (Table) 11/13/21 11/13/21 11/13/21 Range/Units 06:56 06:56 06:56 RBC 3.14 L (4.40-5.60) X 10*6/uL Hgb 8.5 L (13.0-17.0) g/dL Hct 28.4 L (39.6-50.0) % MCHC 29.9 L (32.0-37.0) g/dL MPV 9.2 L (9.5-12.2) fL Eosinophils # 0.40 H (0.04-0.35) X 10*3/uL Chloride 112 H (96-109) mmol/L Carbon Dioxide 18.8 L (20.0-27.5) mmol/L Anion Gap 9.20 L (10.00-18.00) mmol/L Creatinine 1.9 H (0.6-1.5) mg/dL Est GFR (CKD-EPI)AfAm 43.1 L (60.0-200.0) Est GFR (CKD-EPI)NonAf 37.2 L (60.0-200.0) BUN/Creatinine Ratio 11.89 L (12.00-20.00) Ratio Glucose 168 H (70-110) mg/dL POC Glucose (mg/dL) (75-99) mg/dL Calcium 8.2 L (8.7-10.3) mg/dL Iron 33 L (65-175) ug/dL % Saturation 13.75 L (15.00-50.00) Transferrin 172.0 L (204.0-354.0) mg/dL Total Bilirubin <0.15 L (0.30-1.20) mg/dL AST 11 L (14-35) U/L ALT <5 L (10-49) U/L Total Protein 5.8 L (6.2-8.2) g/dL Albumin 3.1 L (3.8-4.9) g/dL Albumin/Globulin Ratio 1.15 L (1.60-3.17) g/dL Urine Protein (Negative) Urine Glucose (UA) (Negative) Urine Blood (Negative) Urine Mucus (None) /hpf 11/13/21 11/13/21 11/13/21 Range/Units 12:37 14:25 16:41 RBC (4.40-5.60) X 10*6/uL Hgb (13.0-17.0) g/dL Hct (39.6-50.0) % MCHC (32.0-37.0) g/dL MPV (9.5-12.2) fL Eosinophils # (0.04-0.35) X 10*3/uL Chloride (96-109) mmol/L Carbon Dioxide (20.0-27.5) mmol/L Anion Gap (10.00-18.00) mmol/L Creatinine (0.6-1.5) mg/dL Est GFR (CKD-EPI)AfAm (60.0-200.0) Est GFR (CKD-EPI)NonAf (60.0-200.0) BUN/Creatinine Ratio (12.00-20.00) Ratio Glucose (70-110) mg/dL POC Glucose (mg/dL) 145 H 303 H (75-99) mg/dL Calcium (8.7-10.3) mg/dL Iron (65-175) ug/dL % Saturation (15.00-50.00) Transferrin (204.0-354.0) mg/dL Total Bilirubin (0.30-1.20) mg/dL AST (14-35) U/L ALT (10-49) U/L Total Protein (6.2-8.2) g/dL Albumin (3.8-4.9) g/dL Albumin/Globulin Ratio (1.60-3.17) g/dL Urine Protein 3+ H (Negative) Urine Glucose (UA) 2+ H (Negative) Urine Blood Small H (Negative) Urine Mucus Rare H (None) /hpf 11/13/21 11/14/21 Range/Units 20:31 07:53 RBC (4.40-5.60) X 10*6/uL Hgb (13.0-17.0) g/dL Hct (39.6-50.0) % MCHC (32.0-37.0) g/dL MPV (9.5-12.2) fL Eosinophils # (0.04-0.35) X 10*3/uL Chloride (96-109) mmol/L Carbon Dioxide (20.0-27.5) mmol/L Anion Gap (10.00-18.00) mmol/L Creatinine (0.6-1.5) mg/dL Est GFR (CKD-EPI)AfAm (60.0-200.0) Est GFR (CKD-EPI)NonAf (60.0-200.0) BUN/Creatinine Ratio (12.00-20.00) Ratio Glucose (70-110) mg/dL POC Glucose (mg/dL) 246 H 234 H (75-99) mg/dL Calcium (8.7-10.3) mg/dL Iron (65-175) ug/dL % Saturation (15.00-50.00) Transferrin (204.0-354.0) mg/dL Total Bilirubin (0.30-1.20) mg/dL AST (14-35) U/L ALT (10-49) U/L Total Protein (6.2-8.2) g/dL Albumin (3.8-4.9) g/dL Albumin/Globulin Ratio (1.60-3.17) g/dL Urine Protein (Negative) Urine Glucose (UA) (Negative) Urine Blood (Negative) Urine Mucus (None) /hpf Microbiology - Last 24 Hours (Table) 11/13/21 12:15 Gram Stain - Preliminary Foot - Right Wound Culture - Preliminary 11/13/21 12:15 Anaerobic Culture - Preliminary Foot - Right 11/10/21 11:19 Blood Culture - Preliminary Blood No Growth after 72 hours Assessment and Plan Plan: Assessment: 1. Acute kidney injury versus underlying chronic kidney disease. Creatinine stable in the range of 1.7 and 1.9 this admission. Unknown baseline renal function. Etiology is likely diabetic kidney disease. Kidney ultrasound showed no evidence of hydronephrosis. 2. Right foot nonhealing wound. Status post debridement 11/13/2021. Vascular surgery and infectious disease following. Wound culture positive for gram- negative bacilli. 3. Status post left BKA. 4. Diabetes mellitus. 5. Anemia. Iron deficiency noted. No active bleeding. 6. Benign hypertension. Stable. 7. Metabolic acidosis secondary to acute kidney injury and IV fluids. Plan: Hep-Lock IV fluids. Add IV iron. Avoid nephrotoxins. Add hydralazine 25 mg 3 times daily. Hold for systolic blood pressure less than 120. Continue to monitor renal function and urine output. Follow-up morning labs. Discussed with the patient that he will need to follow-up outpatient to establish CKD care and for further workup of proteinuria.
[2021-11-14 11:01] LABS: HGB 8.8 g/dL (13.0-17.0); MCH 27.2 pg (27.0-32.0); MCHC 30.3 g/dL (32.0-37.0); MCV 89.5 fL (80.0-97.0); Mean Platelet Volume 9.9 fL (9.5-12.2); NRBC Per 100 WBC 0 /100 WBCS (0.0-0.0); Platelet Count 224 X 10*3/uL (140-440); RBC 3.24 X 10*6/uL (4.40-5.60); RDW 14.5 % (11.5-14.5); WBC 6.33 X 10*3/uL (4.50-10.00)
[2021-11-14 11:02] LABS: African American GFR (CKD) 41.8 (60.0-200.0); Anion Gap 10.2 mmol/L (10.00-18.00); BUN/Creat Ratio 11.28 Ratio (12.00-20.00); Magnesium 2.2 mg/dL (1.5-2.4); Non-African American GFR(CKD) 36.1 (60.0-200.0); Potassium 5.1 mmol/L (3.5-5.5)
[2021-11-14] MEDS: hydrALAZINE HCL 25 MG TAB PO SCH ×2 (11:05→21:09)
[2021-11-14] MEDS: SODIUM FERRIC GLUCONAT-SUCROSE 125 MG in SODIUM CHLORIDE 0.9% 100 ML IVPB SCH (11:05)
[2021-11-14 11:37] LABS: Glucose,Whole Blood 273 mg/dL (75-99)
--- NOTE | 2021-11-14 12:51 | P.CONS ---
History of Present Illness - Reason for Consult Consult date: 11/14/21 wound care - History of Present Illness 61-year-old male with a PMH of type II DM, PVD status post left BKA, seizure disorder, and hypertension who presents to the emergency room with complaints of right leg and foot pain and redness. The patient reports that he underwent his left BKA surgery 6 months ago due to a nonhealing ulcer in [place]. He reports being confined to a wheelchair and not taking care of his right leg over the past 2 weeks. Reports worsening erythema of the leg as well as an ulcer on the right heel. Patient has a Barbosa grade 3 ulceration to the right lateral calcaneus. The ulceration measures approximately 1 x 1.5 x 0.4 cm. Ulceration wound that shows minimal granulation was significant amount of slough and nonviable tissue. Wound edges are attached to the wound base there is no un dermining noted. The periwound shows excoriation. Patient underwent a surgical I&D yesterday. He did have a foot MRI to rule out osteomyelitis which no osteomyelitis was seen. Patient states that the ulceration was fine and healed until somebody opened it up. Review Of Systems: Constitutional: No fever, no chills, no night sweats. No weight change. No weakness, fatigue or lethargy. No daytime sleepiness. Integumentary:reports wounds, no lesions. No rash or pruritus. No unusual bruising. No change in hair or nails. Physical exam: General Appearance: Alert, cooperative, no distress, appears stated age. Skin: See HPI all other Skin color, texture, tugor normal, no rashes or lesions. Neurologic: Alert oriented x3 Assessment: 1. Nonhealing ulcer with muscle involvement without necrosis right calcaneus 2. Diabetic foot ulcer Barbosa grade 3 Plan: 1. Apply absorptive silver, saline moistened gauze, dry gauze, rolled gauze and secure with paper tape. Change Friday. Patient will benefit from advanced wound care and wound care center. We will happy to see him in the wound care center upon discharge. Thank you for the consultation any questions his contact the wound care center DNP note has been reviewed and discussed with Dr. Rios and the impression and plan of care has been directed as dictated. Past Medical History Past Medical History: CVA/TIA, Diabetes Mellitus, Hypertension Additional Past Medical History / Comment(s): BKA left leg History of Any Multi-Drug Resistant Organisms: None Reported Additional Past Surgical History / Comment(s): BKA right leg Past Anesthesia/Blood Transfusion Reactions: No Reported Reaction Past Psychological History: No Psychological Hx Reported Smoking Status: Current every day smoker Past Alcohol Use History: None Reported Past Drug Use History: None Reported Medications and Allergies Home Medications Medication Instructions Recorded Confirmed Type Carvedilol [Coreg] 12.5 mg PO BID-W/MEALS 11/09/21 11/09/21 History Insulin Glargine,Hum.rec.anlog 40 unit SQ HS 11/09/21 11/09/21 History [Basaglar Kwikpen U-100] Insulin Lispro [humaLOG Kwikpen] 15 units SQ AC-TID 11/09/21 11/09/21 History Ketoconazole 2% Shampoo [Nizoral] 1 applic TOPICAL DIRECTED 11/09/21 11/09/21 History Ticagrelor [Brilinta] 90 mg PO BID 11/09/21 11/09/21 History amLODIPine [Norvasc] 10 mg PO DAILY 11/09/21 11/09/21 History levETIRAcetam [Keppra] 1,000 mg PO BID 11/09/21 11/09/21 History Allergies Allergy/AdvReac Type Severity Reaction Status Date / Time No Known Allergies Allergy Verified 11/09/21 17:03 Physical Exam Vitals: Vital Signs Temp Pulse Resp BP BP Pulse Ox 11/14/21 08:00 97.9 F 80 18 161/70 91 L 11/14/21 01:43 98.6 F 80 17 143/69 94 L 11/13/21 19:34 97.4 F L 85 15 158/65 94 L 11/13/21 15:30 93 L 11/13/21 14:00 97.4 F L 97 19 167/73 93 L 11/13/21 12:54 84 16 157/73 95 Intake and Output 11/13/21 11/14/21 11/14/21 22:59 06:59 14:59 Intake Total 840 Output Total 400 500 Balance 440 -500 Intake: IV 600 Sodium Chloride 0.9% 1, 600 000 ml @ 50 mls/hr IV . Q20H [facility] Rx#:[id number] Oral 240 Output: Urine 400 500 Other: Voiding Method Urinal # Bowel Movements 1 Results CBC & Chem 7: 11/14/21 07:47 11/14/21 07:47 Labs: Abnormal Lab Results - Last 24 Hours (Table) 11/13/21 11/13/21 11/13/21 Range/Units 06:56 14:25 16:41 RBC (4.40-5.60) X 10*6/uL Hgb (13.0-17.0) g/dL Hct (39.6-50.0) % MCHC (32.0-37.0) g/dL Chloride (96-109) mmol/L Carbon Dioxide (20.0-27.5) mmol/L Creatinine (0.6-1.5) mg/dL Est GFR (CKD-EPI)AfAm (60.0-200.0) Est GFR (CKD-EPI)NonAf (60.0-200.0) BUN/Creatinine Ratio (12.00-20.00) Ratio Glucose (70-110) mg/dL POC Glucose (mg/dL) 303 H (75-99) mg/dL Calcium (8.7-10.3) mg/dL Iron 33 L (65-175) ug/dL % Saturation 13.75 L (15.00-50.00) Transferrin 172.0 L (204.0-354.0) mg/dL Urine Protein 3+ H (Negative) Urine Glucose (UA) 2+ H (Negative) Urine Blood Small H (Negative) Urine Mucus Rare H (None) /hpf 11/13/21 11/14/21 11/14/21 Range/Units 20:31 07:47 07:47 RBC 3.24 L (4.40-5.60) X 10*6/uL Hgb 8.8 L (13.0-17.0) g/dL Hct 29.0 L (39.6-50.0) % MCHC 30.3 L (32.0-37.0) g/dL Chloride 110 H (96-109) mmol/L Carbon Dioxide 19.0 L (20.0-27.5) mmol/L Creatinine 2.0 H (0.6-1.5) mg/dL Est GFR (CKD-EPI)AfAm 41.8 L (60.0-200.0) Est GFR (CKD-EPI)NonAf 36.1 L (60.0-200.0) BUN/Creatinine Ratio 11.28 L (12.00-20.00) Ratio Glucose 219 H (70-110) mg/dL POC Glucose (mg/dL) 246 H (75-99) mg/dL Calcium 8.0 L (8.7-10.3) mg/dL Iron (65-175) ug/dL % Saturation (15.00-50.00) Transferrin (204.0-354.0) mg/dL Urine Protein (Negative) Urine Glucose (UA) (Negative) Urine Blood (Negative) Urine Mucus (None) /hpf 11/14/21 11/14/21 Range/Units 07:53 11:35 RBC (4.40-5.60) X 10*6/uL Hgb (13.0-17.0) g/dL Hct (39.6-50.0) % MCHC (32.0-37.0) g/dL Chloride (96-109) mmol/L Carbon Dioxide (20.0-27.5) mmol/L Creatinine (0.6-1.5) mg/dL Est GFR (CKD-EPI)AfAm (60.0-200.0) Est GFR (CKD-EPI)NonAf (60.0-200.0) BUN/Creatinine Ratio (12.00-20.00) Ratio Glucose (70-110) mg/dL POC Glucose (mg/dL) 234 H 273 H (75-99) mg/dL Calcium (8.7-10.3) mg/dL Iron (65-175) ug/dL % Saturation (15.00-50.00) Transferrin (204.0-354.0) mg/dL Urine Protein (Negative) Urine Glucose (UA) (Negative) Urine Blood (Negative) Urine Mucus (None) /hpf Microbiology - Last 24 Hours (Table) 11/13/21 12:15 Gram Stain - Preliminary Foot - Right Wound Culture - Preliminary Gram Neg Bacilli 11/13/21 12:15 Anaerobic Culture - Preliminary Foot - Right 11/10/21 11:19 Blood Culture - Preliminary Blood No Growth after 72 hours Assessment and Plan (1) Non-pressure chronic ulcer of right heel and midfoot with muscle involvement without evidence of necrosis Current Visit: Yes Status: Acute Code(s): L97.415 - NON-PRS CHR ULC OF R HEEL/MIDFT W MSL INVL W/O EVD OF NECR SNOMED Code(s): 637234528 (2) History of left below knee amputation Current Visit: Yes Status: Acute Code(s): Z89.512 - ACQUIRED ABSENCE OF LEFT LEG BELOW KNEE SNOMED Code(s): 779447694712965 (3) Diabetic foot ulcer Current Visit: Yes Status: Acute Code(s): E11.621 - TYPE 2 DIABETES MELLITUS WITH FOOT ULCER; L97.509 - NON-PRESSURE CHRONIC ULCER OTH PRT UNSP FOOT W UNSP SEVERITY SNOMED Code(s): 185236811
[2021-11-14 16:46] LABS: Glucose,Whole Blood 205 mg/dL (75-99)
--- NOTE | 2021-11-14 19:34 | P.PN ---
Subjective Progress Note Date: 11/14/21 (delayed charting seen at 1445) Patient is a 61-year-old male with a history of prior left BKA due to nonhealing ulcer proximally 6 months ago, diabetes mellitus type 2, seizure disorder, and hypertension who presented to the ER complaints of right leg pain, foot pain, and redness. In the ER he underwent an extensive evaluation was ultimately admitted for right lower extremity cellulitis, possible osteomyelitis, and infected ulcer. He was seen by vascular surgery and infectious disease. He was maintained on IV antibiotics. On 11/13/21 patient underwent right heel debridement. His initial wound cultures are growing gram-negative bacilli. Patient seen and examined at bedside. Feeling slightly better today. Wants to follow up with wound care in the outpatient setting. Denies any nausea or vomiting. Denies any diarrhea. General: non toxic, no distress, appears at stated age Derm: warm, dry, abdoulaye appearance to right foot with chronic venous stasis changes and yellow plaquing Head: atraumatic, normocephalic, symmetric Eyes: EOMI, no lid lag, anicteric sclera Mouth: no lip lesion, mucus membranes moist Cardiovascular: S1S2 reg, no murmur, positive posterior tibial pulse bilateral, Lungs: Coarse breath sounds bilateral, no rhonchi, no rales , no accessory muscle use Abdominal: soft, nontender to palpation, no guarding, no appreciable organomegaly Ext: no gross muscle atrophy, 1+ edema right lower extremity, BKA left Neuro: CN II-XI grossly intact, no focal neuro deficits Psych: Alert, oriented, appropriate affect Assessment/plan Right heel wound with cellulitis PAD Prior BKA - s/p I and D - vascular recs - ID recs - zosyn - Wound care recommendations appreciated. We'll follow up in wound care center. NAM vs CKD, suspect CKD - cr stable - nephro recs - avoid nephrotoxic agents - follow Cr Iron deficiency anemia - IV iron X 3 doses - follow CBC Diabetes mellitus type 2 with hyperglycemia, neuropathy -A1c 8.9 - levemir - SSI CVA - statin, Brillenta Tobacco abuse - cessation Dyslipidemia - statin Active Medications Generic Name Dose Route Start Last Admin Trade Name Freq PRN Reason Stop Dose Admin Hydrocodone Bitart/Acetaminophen 1 each 11/10/21 11:09 11/14/21 14:07 Hydrocodone/Apap 10-325mg 1 Each Tab PO 1 each Q6HR PRN Administration Moderate Pain Amlodipine Besylate 10 mg 11/10/21 09:00 11/14/21 08:17 Amlodipine 10 Mg Tab PO 10 mg DAILY LAURA Administration Atorvastatin Calcium 40 mg 11/13/21 09:00 11/14/21 08:17 Atorvastatin 40 Mg Tab PO 40 mg DAILY LAURA Administration Benzocaine/Menthol 1 each 11/12/21 12:01 11/12/21 12:04 Benzocaine/Menthol Lozeng 1 Each Lozenge MUCOUS MEM 1 each Q4HR PRN Administration Cough Carvedilol 12.5 mg 11/10/21 07:30 11/14/21 17:11 Carvedilol 12.5 Mg Tab PO 12.5 mg BID-W/MEALS LAURA Administration Gabapentin 200 mg 11/10/21 16:00 11/14/21 15:57 Gabapentin 100 Mg Cap PO 200 mg TID LAURA Administration Heparin Sodium (Porcine) 5,000 unit 11/10/21 00:00 11/14/21 16:09 Heparin Sodium,Porcine/Pf 5,000 Unit/0.5 Ml Syringe SQ Not Given Q8HR LAURA Hydralazine HCl 25 mg 11/14/21 10:30 11/14/21 11:05 Hydralazine Hcl 25 Mg Tab PO 25 mg BID LAURA Administration Piperacillin Sod/Tazobactam 100 mls @ 25 mls/hr 11/10/21 00:00 11/14/21 15:57 Sod 3.375 gm/ Sodium Chloride IVPB 25 mls/hr Q8HR LAURA Administration Protocol Lactated Ringer's 1,000 mls @ 20 mls/hr 11/13/21 06:37 11/14/21 07:25 Lactated Ringers IV Not Given .Q24H LAURA Ferric Sodium Gluconate 125 mg 110 mls @ 100 mls/hr 11/14/21 10:30 11/14/21 11:05 / Sodium Chloride IVPB 11/17/21 10:31 100 mls/hr DAILY LAURA Administration Insulin Aspart 0 unit 11/11/21 21:46 11/14/21 17:11 Insulin Aspart (Novolog) 100 Unit/Ml Vial SQ 4 unit ACHS LAURA Administration Protocol Insulin Detemir 18 unit 11/13/21 21:00 11/13/21 20:45 Insulin Detemir (Levemir) 100 Unit/Ml Syr SQ 18 unit HS LAURA Administration Levetiracetam 1,000 mg 11/10/21 09:00 11/14/21 08:46 Levetiracetam 500 Mg Tab PO 1,000 mg BID LAURA Administration Morphine Sulfate 2 mg 11/12/21 19:47 11/14/21 18:10 Morphine Sulfate 2 Mg/Ml Syringe IVP 2 mg Q2H PRN Administration Severe Pain Sodium Bicarbonate 650 mg 11/15/21 09:00 Sodium Bicarbonate Tab 650 Mg Tab PO DAILY LAURA Ticagrelor 90 mg 11/10/21 09:00 11/14/21 08:17 Ticagrelor 90 Mg Tab PO 90 mg BID LAURA Administration Objective - Vital Signs Vital signs: Vital Signs Temp 98.6 F 11/14/21 14:00 Pulse 83 11/14/21 14:00 Resp 16 11/14/21 14:00 BP 144/69 11/14/21 14:00 Pulse Ox 93 L 11/14/21 14:00 Intake & Output 11/14/21 11/14/21 11/15/21 06:59 18:59 06:59 Intake Total 1080 Output Total 500 600 Balance -500 480 Intake: Oral 1080 Output: Urine 500 600 Other: Voiding Method Urinal - Labs CBC & Chem 7: 11/14/21 07:47 11/14/21 07:47 Labs: Abnormal Lab Results - Last 24 Hours (Table) 11/13/21 11/13/21 11/14/21 Range/Units 06:56 20:31 07:47 RBC (4.40-5.60) X 10*6/uL Hgb (13.0-17.0) g/dL Hct (39.6-50.0) % MCHC (32.0-37.0) g/dL Chloride 110 H (96-109) mmol/L Carbon Dioxide 19.0 L (20.0-27.5) mmol/L Creatinine 2.0 H (0.6-1.5) mg/dL Est GFR (CKD-EPI)AfAm 41.8 L (60.0-200.0) Est GFR (CKD-EPI)NonAf 36.1 L (60.0-200.0) BUN/Creatinine Ratio 11.28 L (12.00-20.00) Ratio Glucose 219 H (70-110) mg/dL POC Glucose (mg/dL) 246 H (75-99) mg/dL Calcium 8.0 L (8.7-10.3) mg/dL Iron 33 L (65-175) ug/dL % Saturation 13.75 L (15.00-50.00) Transferrin 172.0 L (204.0-354.0) mg/dL 11/14/21 11/14/21 11/14/21 Range/Units 07:47 07:53 11:35 RBC 3.24 L (4.40-5.60) X 10*6/uL Hgb 8.8 L (13.0-17.0) g/dL Hct 29.0 L (39.6-50.0) % MCHC 30.3 L (32.0-37.0) g/dL Chloride (96-109) mmol/L Carbon Dioxide (20.0-27.5) mmol/L Creatinine (0.6-1.5) mg/dL Est GFR (CKD-EPI)AfAm (60.0-200.0) Est GFR (CKD-EPI)NonAf (60.0-200.0) BUN/Creatinine Ratio (12.00-20.00) Ratio Glucose (70-110) mg/dL POC Glucose (mg/dL) 234 H 273 H (75-99) mg/dL Calcium (8.7-10.3) mg/dL Iron (65-175) ug/dL % Saturation (15.00-50.00) Transferrin (204.0-354.0) mg/dL 11/14/21 Range/Units 16:45 RBC (4.40-5.60) X 10*6/uL Hgb (13.0-17.0) g/dL Hct (39.6-50.0) % MCHC (32.0-37.0) g/dL Chloride (96-109) mmol/L Carbon Dioxide (20.0-27.5) mmol/L Creatinine (0.6-1.5) mg/dL Est GFR (CKD-EPI)AfAm (60.0-200.0) Est GFR (CKD-EPI)NonAf (60.0-200.0) BUN/Creatinine Ratio (12.00-20.00) Ratio Glucose (70-110) mg/dL POC Glucose (mg/dL) 205 H (75-99) mg/dL Calcium (8.7-10.3) mg/dL Iron (65-175) ug/dL % Saturation (15.00-50.00) Transferrin (204.0-354.0) mg/dL Microbiology - Last 24 Hours (Table) 11/10/21 11:19 Blood Culture - Preliminary Blood No Growth after 96 hours 11/13/21 12:15 Gram Stain - Preliminary Foot - Right Wound Culture - Preliminary Gram Neg Bacilli 11/13/21 12:15 Anaerobic Culture - Preliminary Foot - Right
[2021-11-14 20:38] LABS: Glucose,Whole Blood 258 mg/dL (75-99)
[2021-11-14] MEDS: INSULIN DETEMIR (LEVEMIR) 100 UNIT/ML SYR SQ SCH (21:10)
[2021-11-14] MEDS: BENZOCAINE/MENTHOL LOZENG 1 EACH LOZENGE MUCOUS MEM PRN (22:20)
[2021-11-15] MEDS: MORPHINE SULFATE 2 MG/ML SYRINGE IVP PRN ×8 (01:26→23:09)
[2021-11-15] MEDS: PIPERACILLIN-TAZOBACTAM 3.375 GM in SODIUM CHLORIDE 0.9% 100 ML IVPB SCH ×2 (01:27→08:45)
[2021-11-15] MEDS: HEPARIN SODIUM,PORCINE/PF 5,000 UNIT/0.5 ML SYRINGE SQ SCH ×4 (01:28→15:52)
[2021-11-15] MEDS: HYDROcodone/APAP 10-325MG 1 EACH TAB PO PRN ×4 (03:22→22:38)
[2021-11-15 07:03] LABS: Glucose,Whole Blood 213 mg/dL (75-99)
[2021-11-15] MEDS: LACTATED RINGERS 1,000 ML IV SCH (07:18)
[2021-11-15] MEDS: levETIRAcetam 500 MG TAB PO SCH ×2 (08:07→20:57)
[2021-11-15] MEDS: carvediloL 12.5 MG TAB PO SCH ×2 (08:07→17:03)
[2021-11-15] MEDS: amLODIPine 10 MG TAB PO SCH (08:07)
[2021-11-15] MEDS: ATORVASTATIN 40 MG TAB PO SCH (08:07)
[2021-11-15] MEDS: TICAGRELOR 90 MG TAB PO SCH ×2 (08:07→20:57)
[2021-11-15] MEDS: SODIUM BICARBONATE TAB 650 MG TAB PO SCH (08:07)
[2021-11-15] MEDS: hydrALAZINE HCL 25 MG TAB PO SCH ×3 (08:07→20:58)
[2021-11-15] MEDS: GABAPENTIN 100 MG CAP PO SCH ×3 (08:11→20:58)
--- NOTE | 2021-11-15 08:30 | P.OP ---
Date of Procedure: 11/13/21 Preoperative Diagnosis: right diabetic heel wound Postoperative Diagnosis: right diabetic heel wound Wegeners grade 2 Procedure(s) Performed: Excisional debridement of the right heel wound Anesthesia: MAC Surgeon: Rusty Montalvo Estimated Blood Loss (ml): 5 Pathology: other (cultures right heel) Condition: stable Disposition: PACU Indications for Procedure: 61 year old male with history of diabetes, left bka presents to the hospital secondary to right heel wound. Upon evaluation the right heel wound had necrotic areas and needed debridement. He presents today for procedure. Operative Findings: right heel wound extending to the bone measuring 1x1.5x.4cm at the deepest with a total length of 6cm Description of Procedure: After written and informed consent was obtained from the patient and all risks, benefits and complications were described the patient was brought to the operative suite and laid in a supine position. The area of the right heel was prepped and draped in the usual fashion and timeout was performed. Utilizing a scalpel and currette the right heel wound was sharply debrided down to the fascia and healthy bleeding tissues. Cultures were obtained of the deep tissue. The area of wound measured 6cm in length with a smaller area of deep ulcer extending to the fascia measuring 1x1.5x.4cm. All necrotic tissue was debrided and hemostasis was controlled with electrocautery. The area was irrigated with antibiotic solution and then dressings were placed. The patient tolerated the procedure well and was sent to PACU for recovery.
[2021-11-15] MEDS: INSULIN ASPART (NovoLOG) 100 UNIT/ML VIAL SQ SCH ×4 (08:42→20:56)
--- NOTE | 2021-11-15 08:55 | P.PN ---
Subjective Progress Note Date: 11/15/21 Principal diagnosis: Right Foot wound Patient is seen and examined his follow-up. He underwent debridement of diabetic ulcer of right foot. Juan applied a stump outdoor guide to the left below the knee amputation. He remains afebrile. He is on Zosyn. Wound culture positive for Acinetobacter ronit/haemol. Patient currently on Zosyn, infectious disease is following. Pain is well-managed. Objective - Vital Signs Vital signs: Vital Signs Temp 97.7 F 11/15/21 08:19 Pulse 82 11/15/21 08:19 Resp 12 11/15/21 08:19 BP 162/60 11/15/21 08:19 Pulse Ox 88 L 11/15/21 08:19 Intake & Output 11/14/21 11/15/21 11/15/21 18:59 06:59 18:59 Intake Total 1080 Output Total 600 Balance 480 Intake: Oral 1080 Output: Urine 600 Other: Voiding Method Urinal Urinal # Voids 2 - Exam General appearance: The patient is alert, oriented, appears in no acute distress. HET: Head is normocephalic and atraumatic. Pupils are equal and reactive. Neck: Supple without lymphadenopathy. Trachea midline. Extremities: Left lower extremity below the knee amputation stump, with stump outdoor guide. Right lower extremity with edema and chronic venous changes. Dressing clean dry and intact. Neurological: No focal deficits. Alert and oriented 3. - Labs CBC & Chem 7: 11/14/21 07:47 11/14/21 07:47 Labs: Abnormal Lab Results - Last 24 Hours (Table) 11/14/21 11/14/21 11/14/21 Range/Units 07:47 07:47 11:35 RBC 3.24 L (4.40-5.60) X 10*6/uL Hgb 8.8 L (13.0-17.0) g/dL Hct 29.0 L (39.6-50.0) % MCHC 30.3 L (32.0-37.0) g/dL Chloride 110 H (96-109) mmol/L Carbon Dioxide 19.0 L (20.0-27.5) mmol/L Creatinine 2.0 H (0.6-1.5) mg/dL Est GFR (CKD-EPI)AfAm 41.8 L (60.0-200.0) Est GFR (CKD-EPI)NonAf 36.1 L (60.0-200.0) BUN/Creatinine Ratio 11.28 L (12.00-20.00) Ratio Glucose 219 H (70-110) mg/dL POC Glucose (mg/dL) 273 H (75-99) mg/dL Calcium 8.0 L (8.7-10.3) mg/dL 11/14/21 11/14/21 11/15/21 Range/Units 16:45 20:37 07:02 RBC (4.40-5.60) X 10*6/uL Hgb (13.0-17.0) g/dL Hct (39.6-50.0) % MCHC (32.0-37.0) g/dL Chloride (96-109) mmol/L Carbon Dioxide (20.0-27.5) mmol/L Creatinine (0.6-1.5) mg/dL Est GFR (CKD-EPI)AfAm (60.0-200.0) Est GFR (CKD-EPI)NonAf (60.0-200.0) BUN/Creatinine Ratio (12.00-20.00) Ratio Glucose (70-110) mg/dL POC Glucose (mg/dL) 205 H 258 H 213 H (75-99) mg/dL Calcium (8.7-10.3) mg/dL Microbiology - Last 24 Hours (Table) 11/11/21 13:20 Anaerobic Culture - Preliminary Heel - Right Presumptive MRSA 11/11/21 13:19 Gram Stain - Final Foot - Right Wound Culture - Final Acinetobacter ronit/haemol 11/10/21 11:19 Blood Culture - Preliminary Blood No Growth after 96 hours 11/13/21 12:15 Gram Stain - Preliminary Foot - Right Wound Culture - Preliminary Gram Neg Bacilli Assessment and Plan Assessment: 1. Right diabetic heel wound status post debridement 2. Diabetes mellitus 3. History of left [id number] amputation 4. Obesity 5. Chronic kidney disease Plan: 1. Continue IV antibiotics per recommendations from infectious disease 2. Continue local wound care as ordered 3. Arterial Doppler ordered and reviewed, CLAUDY right 1.01 4. Occupational and physical therapy consulted for possible ECF placement 5. Medi boot to right foot 6. Offload pressure to right heel 7. No further vascular surgical intervention indicated at this time. Patient is cleared for discharge from vascular surgery. Thank you for this consultation, we will continue to follow. The impression and plan of care has been dictated as directed. Dr. Marie I performed a history and examination of this patient, discussed the same with the dictator. I agree with the dictator's note ,documented as a scribe. Any additional findings or plans will be noted.
[2021-11-15 09:32] LABS: Magnesium 2.3 mg/dL (1.5-2.4)
[2021-11-15 10:10] LABS: African American GFR (CKD) 40.5 (60.0-200.0); Anion Gap 8.4 mmol/L (10.00-18.00); BUN/Creat Ratio 10.8 Ratio (12.00-20.00); Blood Urea Nitrogen 21.6 mg/dL (9.0-27.0); Calcium 8.2 mg/dL (8.7-10.3); Carbon Dioxide 18.6 mmol/L (20.0-27.5); Potassium 8.2 mmol/L (3.5-5.5)
[2021-11-15] MEDS ORDERED: FUROSEMIDE 10 MG/ML 4 ML VIAL IV STA (10:12)
[2021-11-15] MEDS ORDERED: CALCIUM GLUCONATE IN NACL 1 GM in SALINE 1 100ML.BAG IVPB ONE (10:14)
--- NOTE | 2021-11-15 10:14 | P.PN ---
Subjective Patient is seen in follow for acute kidney injury. Morning labs pending. Oral intake is good. No vomiting or diarrhea. Denies chest pain or shortness of breath. No changes overnight. Vital signs are stable. General: Awake and alert. No acute distress. HEENT: Head exam is unremarkable. LUNGS: Breath sounds decreased. HEART: Rate and Rhythm are regular. ABDOMEN: Soft, obese. EXTREMITITES: BKA noted. Right foot wrapped. No drainage. Chronic changes noted. Objective - Vital Signs Vital signs: Vital Signs Temp 97.7 F 11/15/21 08:19 Pulse 82 11/15/21 08:19 Resp 12 11/15/21 08:19 BP 162/60 11/15/21 08:19 Pulse Ox 88 L 11/15/21 08:19 Intake & Output 11/14/21 11/15/21 11/15/21 18:59 06:59 18:59 Intake Total 1080 Output Total 600 Balance 480 Intake: Oral 1080 Output: Urine 600 Other: Voiding Method Urinal Urinal # Voids 2 - Labs CBC & Chem 7: 11/14/21 07:47 11/14/21 07:47 Labs: Abnormal Lab Results - Last 24 Hours (Table) 11/14/21 11/14/21 11/14/21 Range/Units 07:47 07:47 11:35 RBC 3.24 L (4.40-5.60) X 10*6/uL Hgb 8.8 L (13.0-17.0) g/dL Hct 29.0 L (39.6-50.0) % MCHC 30.3 L (32.0-37.0) g/dL Chloride 110 H (96-109) mmol/L Carbon Dioxide 19.0 L (20.0-27.5) mmol/L Creatinine 2.0 H (0.6-1.5) mg/dL Est GFR (CKD-EPI)AfAm 41.8 L (60.0-200.0) Est GFR (CKD-EPI)NonAf 36.1 L (60.0-200.0) BUN/Creatinine Ratio 11.28 L (12.00-20.00) Ratio Glucose 219 H (70-110) mg/dL POC Glucose (mg/dL) 273 H (75-99) mg/dL Calcium 8.0 L (8.7-10.3) mg/dL 11/14/21 11/14/21 11/15/21 Range/Units 16:45 20:37 07:02 RBC (4.40-5.60) X 10*6/uL Hgb (13.0-17.0) g/dL Hct (39.6-50.0) % MCHC (32.0-37.0) g/dL Chloride (96-109) mmol/L Carbon Dioxide (20.0-27.5) mmol/L Creatinine (0.6-1.5) mg/dL Est GFR (CKD-EPI)AfAm (60.0-200.0) Est GFR (CKD-EPI)NonAf (60.0-200.0) BUN/Creatinine Ratio (12.00-20.00) Ratio Glucose (70-110) mg/dL POC Glucose (mg/dL) 205 H 258 H 213 H (75-99) mg/dL Calcium (8.7-10.3) mg/dL Microbiology - Last 24 Hours (Table) 11/11/21 13:20 Anaerobic Culture - Preliminary Heel - Right Presumptive MRSA 11/11/21 13:19 Gram Stain - Final Foot - Right Wound Culture - Final Acinetobacter ronit/haemol 11/10/21 11:19 Blood Culture - Preliminary Blood No Growth after 96 hours 11/13/21 12:15 Gram Stain - Preliminary Foot - Right Wound Culture - Preliminary Gram Neg Bacilli Assessment and Plan Plan: Assessment: 1. Acute kidney injury versus underlying chronic kidney disease. Creatinine fairly stable at 2.0 yesterday. Unknown baseline renal function. Etiology is likely diabetic kidney disease. Kidney ultrasound showed no evidence of hydronephrosis. 2. Right foot nonhealing wound. Status post debridement 11/13/2021. Vascular surgery and infectious disease following. Wound culture positive for gram- negative bacilli and MRSA. 3. Status post left BKA. 4. Diabetes mellitus. 5. Anemia. Iron deficiency noted. No active bleeding. 6. Benign hypertension. Stable. 7. Metabolic acidosis secondary to acute kidney injury and IV fluids. On oral bicarbonate. 8. Volume overload. Plan: Lasix 40 mg IV once today. Add oral Lasix 40 mg once daily starting tomorrow. Maintain IV iron. Avoid nephrotoxins. Continue to monitor renal function and urine output. Follow-up morning labs. Discussed with the patient that he will need to follow-up outpatient to establish CKD care and for further workup of proteinuria.
[2021-11-15] MEDS ORDERED: SODIUM BICARB 8.4% 50 ML SYR (1 MEQ/ML) IV STA ×2 (10:15→10:43)
[2021-11-15 11:39] LABS: Glucose,Whole Blood 251 mg/dL (75-99)
[2021-11-15] MEDS: SODIUM FERRIC GLUCONAT-SUCROSE 125 MG in SODIUM CHLORIDE 0.9% 100 ML IVPB SCH (11:57)
[2021-11-15] MEDS ORDERED: DAPTOmycin 350 MG in SODIUM CHLORIDE 0.9% 50 ML IVPB SCH (12:00)
[2021-11-15 12:31] LABS: African American GFR (CKD) 41 (>60 ml/min/1.73 sqM); Anion Gap 7 mmol/L; Blood Urea Nitrogen 23 mg/dL (9-20); Calcium 8.2 mg/dL (8.4-10.2); Carbon Dioxide 21 mmol/L (22-30); Chloride 111 mmol/L (98-107); Glucose 220 mg/dL (74-99); Non-African American GFR(CKD) 35 (>60 ml/min/1.73 sqM); Potassium 5.1 mmol/L (3.5-5.1); Sodium 139 mmol/L (137-145)
[2021-11-15] MEDS: DAPTOmycin 500 MG in SODIUM CHLORIDE 0.9% 50 ML IVPB SCH (12:50)
[2021-11-15] MEDS: AMPICILLIN-SULBACTAM 3 GM in SODIUM CHLORIDE 0.9% 100 ML IVPB SCH ×2 (15:58→23:10)
--- NOTE | 2021-11-15 16:01 | IR ---
PICC LINE PLACEMENT: HISTORY: Infection requiring long-term antibiotic therapy PROCEDURE: Ultrasound and fluoroscopic guidance of PICC line placement. COMPLICATIONS: None ANESTHESIA: 1. 1% Lidocaine locally. FINDINGS/TECHNIQUE: The procedure was explained to the patient. The risks, complications, benefits and alternatives were discussed and any questions were answered. Informed consent was obtained. The patient was placed supine on the fluoroscopic table and prepped and draped in the usual sterile fash ion. Utilizing a 21 gauge needle and sonographic and fluoroscopic guidance, access in the right bas ilic vein was achieved and there is placement of a 0.018 guidewire. The vein is patent. A 4-F sheat h was placed over the guidewire. The guidewire and dilator were removed and a 4-F. PICC line was kathryn kavon through the sheath with the tip at the level of the SVC. The sheath was removed, the catheter wa s flushed and sutured into position. The patient was stable throughout the procedure and remained st able upon discharge from the Department of Radiology. The vein puncture was patent under ultrasound. A crews scale image was obtained to document patency of the vein punctured. All elements of the maximal barrier technique were utilized. FLUOROSCOPY TIME: 0.1 minutes and one image submitted IMPRESSION: Successful PICC line placement under ultrasound and fluoroscopic guidance.
[2021-11-15 16:40] LABS: Glucose,Whole Blood 228 mg/dL (75-99)
--- NOTE | 2021-11-15 19:02 | P.PN ---
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 In the ER he underwent an extensive evaluation was ultimately admitted for right lower extremity cellulitis, possible osteomyelitis, and infected ulcer. He was seen by vascular surgery and infectious disease. He was maintained on IV antibiotics. On 11/13/21 patient underwent right heel debridement. His initial wound cultures are growing gram-negative bacilli. Patient seen and examined at bedside. Feeling slightly better today. Wants to follow up with wound care in the outpatient setting. Denies any nausea or vomiting. Denies any diarrhea. General: non toxic, no distress, appears at stated age Derm: warm, dry, abdoulaye appearance to right foot with chronic venous stasis changes and yellow plaquing Head: atraumatic, normocephalic, symmetric Eyes: EOMI, no lid lag, anicteric sclera Mouth: no lip lesion, mucus membranes moist Cardiovascular: S1S2 reg, no murmur, positive posterior tibial pulse bilateral, Lungs: Coarse breath sounds bilateral, no rhonchi, no rales , no accessory muscle use Abdominal: soft, nontender to palpation, no guarding, no appreciable organomegaly Ext: no gross muscle atrophy, 1+ edema right lower extremity, BKA left Neuro: CN II-XI grossly intact, no focal neuro deficits Psych: Alert, oriented, appropriate affect Assessment/plan Right heel infected wound with osteomyelitis PAD Prior BKA - s/p I and D - vascular recs - ID recs: PICC line 4-6 weeks of IV abx - dapto and unasyn - Wound care recommendations appreciated. We'll follow up in wound care center. 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 - cr stable - nephro recs - avoid nephrotoxic agents - follow Cr Iron deficiency anemia - IV iron X 3 doses - follow CBC Diabetes mellitus type 2 with hyperglycemia, neuropathy -A1c 8.9 - levemir increased - SSI CVA - statin, Brillenta Tobacco abuse - cessation Dyslipidemia - statin Active Medications Hydrocodone Bitart/Acetaminophen (Hydrocodone/Apap 10-325mg 1 Each Tab) 1 each PO Q6HR PRN PRN Reason: Moderate Pain Last Admin: 11/15/21 15:51 Dose: 1 each Documented by: Amlodipine Besylate (Amlodipine 10 Mg Tab) 10 mg PO DAILY [facility] Last Admin: 11/15/21 08:07 Dose: 10 mg Documented by: Benzocaine/Menthol (Benzocaine/Menthol Lozeng 1 Each Lozenge) 1 each MUCOUS MEM Q4HR PRN PRN Reason: Cough Last Admin: 11/14/21 22:20 Dose: 1 each Documented by: Carvedilol (Carvedilol 12.5 Mg Tab) 12.5 mg PO BID-W/MEALS [facility] Last Admin: 11/15/21 17:03 Dose: 12.5 mg Documented by: Furosemide (Furosemide 40 Mg Tab) 40 mg PO DAILY [facility] Gabapentin (Gabapentin 100 Mg Cap) 200 mg PO TID [facility] Last Admin: 11/15/21 15:52 Dose: 200 mg Documented by: Heparin Sodium (Porcine) (Heparin Sodium,Porcine/Pf 5,000 Unit/0.5 Ml Syringe) 5,000 unit SQ Q8HR [facility] Last Admin: 11/15/21 15:52 Dose: 5,000 unit Documented by: Hydralazine HCl (Hydralazine Hcl 25 Mg Tab) 25 mg PO TID [facility] Last Admin: 11/15/21 15:52 Dose: 25 mg Documented by: Lactated Ringer's (Lactated Ringers) 1,000 mls @ 20 mls/hr IV .Q24H [facility] Last Admin: 11/15/21 07:18 Dose: Not Given Documented by: Ferric Sodium Gluconate 125 mg (/ Sodium Chloride) 110 mls @ 100 mls/hr IVPB DAILY [facility] Stop: 11/17/21 10:31 Last Admin: 11/15/21 11:57 Dose: 100 mls/hr Documented by: Ampicillin Sodium/Sulbactam (Sodium 3 gm/ Sodium Chloride) 100 mls @ 200 mls/hr IVPB Q8HR [facility]; Protocol Last Admin: 11/15/21 15:58 Dose: 200 mls/hr Documented by: Daptomycin 500 mg/ Sodium (Chloride) 50 mls @ 100 mls/hr IVPB Q24H [facility]; Protocol Last Admin: 11/15/21 12:50 Dose: 100 mls/hr Documented by: Insulin Aspart (Insulin Aspart (Novolog) 100 Unit/Ml Vial) 0 unit SQ [facility]; Protocol Last Admin: 11/15/21 17:03 Dose: 5 unit Documented by: Insulin Detemir (Insulin Detemir (Levemir) 100 Unit/Ml Syr) 22 unit SQ [facility] Levetiracetam (Levetiracetam 500 Mg Tab) 1,000 mg PO BID [facility] Last Admin: 11/15/21 08:07 Dose: 1,000 mg Documented by: Morphine Sulfate (Morphine Sulfate 2 Mg/Ml Syringe) 2 mg IVP Q2H PRN PRN Reason: Severe Pain Last Admin: 11/15/21 15:51 Dose: 2 mg Documented by: Sodium Bicarbonate (Sodium Bicarbonate Tab 650 Mg Tab) 650 mg PO DAILY [facility] Last Admin: 11/15/21 08:07 Dose: 650 mg Documented by: Ticagrelor (Ticagrelor 90 Mg Tab) 90 mg PO BID [facility] Last Admin: 11/15/21 08:07 Dose: 90 mg Documented by: Objective - Vital Signs Vital signs: Vital Signs Temp 98.1 F 11/15/21 15:11 Pulse 80 11/15/21 15:11 Resp 18 11/15/21 15:11 BP 137/70 11/15/21 15:11 Pulse Ox 89 L 11/15/21 15:11 Intake & Output 11/14/21 11/15/21 11/15/21 18:59 06:59 18:59 Intake Total 1080 Output Total 600 550 Balance 480 -550 Weight 104 kg Intake: Oral 1080 Output: Urine 600 550 Other: Voiding Method Urinal Urinal # Voids 2 3 # Bowel Movements 3 - Labs CBC & Chem 7: 11/14/21 07:47 11/15/21 10:45 Labs: Abnormal Lab Results - Last 24 Hours (Table) 11/14/21 11/15/21 11/15/21 Range/Units 20:37 06:25 07:02 Potassium 8.2 H* (3.5-5.5) mmol/L Chloride (98-107) mmol/L Carbon Dioxide 18.6 L (20.0-27.5) mmol/L Anion Gap 8.40 L (10.00-18.00) mmol/L BUN (9-20) mg/dL Creatinine 2.0 H (0.6-1.5) mg/dL Est GFR (CKD-EPI)AfAm 40.5 L (60.0-200.0) Est GFR (CKD-EPI)NonAf 35.0 L (60.0-200.0) BUN/Creatinine Ratio 10.80 L (12.00-20.00) Ratio Glucose 216 H (70-110) mg/dL POC Glucose (mg/dL) 258 H 213 H (75-99) mg/dL Calcium 8.2 L (8.7-10.3) mg/dL 11/15/21 11/15/21 11/15/21 Range/Units 10:45 11:36 16:38 Potassium (3.5-5.5) mmol/L Chloride 111 H (98-107) mmol/L Carbon Dioxide 21 L (20.0-27.5) mmol/L Anion Gap (10.00-18.00) mmol/L BUN 23 H (9-20) mg/dL Creatinine 1.99 H (0.6-1.5) mg/dL Est GFR (CKD-EPI)AfAm (60.0-200.0) Est GFR (CKD-EPI)NonAf (60.0-200.0) BUN/Creatinine Ratio (12.00-20.00) Ratio Glucose 220 H (70-110) mg/dL POC Glucose (mg/dL) 251 H 228 H (75-99) mg/dL Calcium 8.2 L (8.7-10.3) mg/dL Microbiology - Last 24 Hours (Table) 11/10/21 11:19 Blood Culture - Preliminary Blood No Growth after 120 hours 11/11/21 13:20 Anaerobic Culture - Preliminary Heel - Right Presumptive MRSA 11/11/21 13:19 Gram Stain - Final Foot - Right Wound Culture - Final Acinetobacter ronit/haemol
[2021-11-15 20:28] LABS: Glucose,Whole Blood 169 mg/dL (75-99)
[2021-11-15] MEDS: INSULIN DETEMIR (LEVEMIR) 100 UNIT/ML SYR SQ SCH (20:56)
--- NOTE | 2021-11-15 21:16 | P.PN ---
Subjective Progress Note Date: 11/14/21 Principal diagnosis: Right heel diabetic wound infection Patient is a 61 year old male with a past medical history significant for left [id number] amputation in this patient with underlying diabetes presenting to the hospital with a nonhealing wound to the right heel and concern for secondary infection, patient did have MRI completed on 11/10/2021 with no evidence of osteomyelitis. The patient is status post surgical debridement of his right heel wound completed on 11/13/2021 On today's evaluation that is 11/14/2021, the patient is afebrile, the patient pain to the right heel area is currently controlled, the patient denies chest pain shortness of breath cough, the patient denies nausea no vomiting no abdominal pain no diarrhea Objective - Vital Signs Vital signs: Vital Signs Temp 97.9 F 11/14/21 08:00 Pulse 80 11/14/21 08:00 Resp 18 11/14/21 08:00 BP 161/70 11/14/21 08:00 Pulse Ox 91 L 11/14/21 08:00 Intake & Output 11/13/21 11/14/21 11/14/21 18:59 06:59 18:59 Intake Total 1240 Output Total 1355 500 Balance -115 -500 Intake: IV 1000 Sodium Chloride 0.9% 1, 600 000 ml @ 50 mls/hr IV . Q20H [facility] Rx#:[id number] Oral 240 Output: Urine 1350 500 Estimated Blood Loss 5 Other: Voiding Method Urinal Urinal # Bowel Movements 1 - Exam GENERAL DESCRIPTION: Middle-aged male lying in bed in no distress RESPIRATORY SYSTEM: Unlabored breathing , decreased breath sounds at bases HEART: S1 S2 regular rate and rhythm , ABDOMEN: Soft , no tenderness EXTREMITIES: Right lateral heel with some slough tissue surrounding redness - Labs CBC & Chem 7: 11/14/21 07:47 11/15/21 10:45 Labs: Abnormal Lab Results - Last 24 Hours (Table) 11/13/21 11/13/21 11/13/21 Range/Units 06:56 14:25 16:41 RBC (4.40-5.60) X 10*6/uL Hgb (13.0-17.0) g/dL Hct (39.6-50.0) % MCHC (32.0-37.0) g/dL Chloride (96-109) mmol/L Carbon Dioxide (20.0-27.5) mmol/L Creatinine (0.6-1.5) mg/dL Est GFR (CKD-EPI)AfAm (60.0-200.0) Est GFR (CKD-EPI)NonAf (60.0-200.0) BUN/Creatinine Ratio (12.00-20.00) Ratio Glucose (70-110) mg/dL POC Glucose (mg/dL) 303 H (75-99) mg/dL Calcium (8.7-10.3) mg/dL Iron 33 L (65-175) ug/dL % Saturation 13.75 L (15.00-50.00) Transferrin 172.0 L (204.0-354.0) mg/dL Urine Protein 3+ H (Negative) Urine Glucose (UA) 2+ H (Negative) Urine Blood Small H (Negative) Urine Mucus Rare H (None) /hpf 11/13/21 11/14/21 11/14/21 Range/Units 20:31 07:47 07:47 RBC 3.24 L (4.40-5.60) X 10*6/uL Hgb 8.8 L (13.0-17.0) g/dL Hct 29.0 L (39.6-50.0) % MCHC 30.3 L (32.0-37.0) g/dL Chloride 110 H (96-109) mmol/L Carbon Dioxide 19.0 L (20.0-27.5) mmol/L Creatinine 2.0 H (0.6-1.5) mg/dL Est GFR (CKD-EPI)AfAm 41.8 L (60.0-200.0) Est GFR (CKD-EPI)NonAf 36.1 L (60.0-200.0) BUN/Creatinine Ratio 11.28 L (12.00-20.00) Ratio Glucose 219 H (70-110) mg/dL POC Glucose (mg/dL) 246 H (75-99) mg/dL Calcium 8.0 L (8.7-10.3) mg/dL Iron (65-175) ug/dL % Saturation (15.00-50.00) Transferrin (204.0-354.0) mg/dL Urine Protein (Negative) Urine Glucose (UA) (Negative) Urine Blood (Negative) Urine Mucus (None) /hpf 11/14/21 11/14/21 Range/Units 07:53 11:35 RBC (4.40-5.60) X 10*6/uL Hgb (13.0-17.0) g/dL Hct (39.6-50.0) % MCHC (32.0-37.0) g/dL Chloride (96-109) mmol/L Carbon Dioxide (20.0-27.5) mmol/L Creatinine (0.6-1.5) mg/dL Est GFR (CKD-EPI)AfAm (60.0-200.0) Est GFR (CKD-EPI)NonAf (60.0-200.0) BUN/Creatinine Ratio (12.00-20.00) Ratio Glucose (70-110) mg/dL POC Glucose (mg/dL) 234 H 273 H (75-99) mg/dL Calcium (8.7-10.3) mg/dL Iron (65-175) ug/dL % Saturation (15.00-50.00) Transferrin (204.0-354.0) mg/dL Urine Protein (Negative) Urine Glucose (UA) (Negative) Urine Blood (Negative) Urine Mucus (None) /hpf Microbiology - Last 24 Hours (Table) 11/13/21 12:15 Gram Stain - Preliminary Foot - Right Wound Culture - Preliminary Gram Neg Bacilli 11/13/21 12:15 Anaerobic Culture - Preliminary Foot - Right 11/10/21 11:19 Blood Culture - Preliminary Blood No Growth after 72 hours Assessment and Plan (1) Decubitus ulcer of foot Current Visit: Yes Status: Acute Code(s): L89.899 - PRESSURE ULCER OF OTHER SITE, UNSPECIFIED STAGE SNOMED Code(s): 5920454515 Plan: 1patient with right lateral heel/foot area diabetic foot ulcer started with debridement of the callus 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 2 the patient did have surgical debridement and deep culture which are currently pending 3patient to continue with Zosyn while waiting for the cultures to finalize. Time with Patient: Less than 30
--- NOTE | 2021-11-15 21:20 | P.PN ---
Subjective Progress Note Date: 11/15/21 Principal diagnosis: Right heel diabetic wound infection Patient is a 61 year old male with a past medical history significant for left [id number]-[id number] amputation in this patient with underlying diabetes presenting to the hospital with a nonhealing wound to the right heel and concern for secondary infection, patient did have MRI completed on 11/10/2021 with no evidence of osteomyelitis. The patient is status post surgical debridement of his right heel wound completed on 11/13/2021 with evidence of extension of the wound down to the wound On today's evaluation that is 11/15/2021, the patient remains to be afebrile, the patient denies any worsening pain to the right heel area, the patient denies chest pain shortness of breath cough, the patient denies nausea no vomiting no abdominal pain no diarrhea Objective - Vital Signs Vital signs: Vital Signs Temp 97.7 F 11/15/21 08:19 Pulse 82 11/15/21 08:19 Resp 12 11/15/21 08:19 BP 162/60 11/15/21 08:19 Pulse Ox 88 L 11/15/21 08:19 Intake & Output 11/14/21 11/15/21 11/15/21 18:59 06:59 18:59 Intake Total 1080 Output Total 600 Balance 480 Intake: Oral 1080 Output: Urine 600 Other: Voiding Method Urinal Urinal # Voids 2 - Exam GENERAL DESCRIPTION: Middle-aged male lying in bed in no distress RESPIRATORY SYSTEM: Unlabored breathing , decreased breath sounds at bases HEART: S1 S2 regular rate and rhythm , ABDOMEN: Soft , no tenderness EXTREMITIES: Right lateral heel is currently dressed no drainage on the dressing - Labs CBC & Chem 7: 11/14/21 07:47 11/15/21 10:45 Labs: Abnormal Lab Results - Last 24 Hours (Table) 11/14/21 11/14/21 11/14/21 Range/Units 11:35 16:45 20:37 Potassium (3.5-5.5) mmol/L Carbon Dioxide (20.0-27.5) mmol/L Anion Gap (10.00-18.00) mmol/L Creatinine (0.6-1.5) mg/dL Est GFR (CKD-EPI)AfAm (60.0-200.0) Est GFR (CKD-EPI)NonAf (60.0-200.0) BUN/Creatinine Ratio (12.00-20.00) Ratio Glucose (70-110) mg/dL POC Glucose (mg/dL) 273 H 205 H 258 H (75-99) mg/dL Calcium (8.7-10.3) mg/dL 11/15/21 11/15/21 Range/Units 06:25 07:02 Potassium 8.2 H* (3.5-5.5) mmol/L Carbon Dioxide 18.6 L (20.0-27.5) mmol/L Anion Gap 8.40 L (10.00-18.00) mmol/L Creatinine 2.0 H (0.6-1.5) mg/dL Est GFR (CKD-EPI)AfAm 40.5 L (60.0-200.0) Est GFR (CKD-EPI)NonAf 35.0 L (60.0-200.0) BUN/Creatinine Ratio 10.80 L (12.00-20.00) Ratio Glucose 216 H (70-110) mg/dL POC Glucose (mg/dL) 213 H (75-99) mg/dL Calcium 8.2 L (8.7-10.3) mg/dL Microbiology - Last 24 Hours (Table) 11/11/21 13:20 Anaerobic Culture - Preliminary Heel - Right Presumptive MRSA 11/11/21 13:19 Gram Stain - Final Foot - Right Wound Culture - Final Acinetobacter ronit/haemol 11/10/21 11:19 Blood Culture - Preliminary Blood No Growth after 96 hours 11/13/21 12:15 Gram Stain - Preliminary Foot - Right Wound Culture - Preliminary Gram Neg Bacilli Assessment and Plan (1) Decubitus ulcer of foot Current Visit: Yes Status: Acute Code(s): L89.899 - PRESSURE ULCER OF OTHER SITE, UNSPECIFIED STAGE SNOMED Code(s): 6585432979 Plan: 1patient with right lateral heel/foot area diabetic foot ulcer started with debridement of 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 2 the patient did have surgical debridement and deep culture has been finalized as MRSA initial cultures with Acinetobacter 3antibiotic has been switched over to Unasyn and daptomycin, patient with the PICC line for outpatient IV antibiotic therapy discussed with the ed case manager as well as admitting physician
[2021-11-16] MEDS: HEPARIN SODIUM,PORCINE/PF 5,000 UNIT/0.5 ML SYRINGE SQ SCH ×4 (01:16→22:06)
[2021-11-16] MEDS: MORPHINE SULFATE 2 MG/ML SYRINGE IVP PRN ×6 (01:17→23:12)
[2021-11-16] MEDS: LACTATED RINGERS 1,000 ML IV SCH (02:12)
[2021-11-16] MEDS: HYDROcodone/APAP 10-325MG 1 EACH TAB PO PRN (05:44)
[2021-11-16 06:02] LABS: HCT 31.5 % (39.0-53.0); HGB 9.8 gm/dL (13.0-17.5); Hypochromasia Slight; MCH 28.3 pg (25.0-35.0); MCHC 31.1 g/dL (31.0-37.0); MCV 90.8 fL (80.0-100.0); Mean Platelet Volume 7.2; Platelet Count 252 k/uL (150-450); RBC 3.46 m/uL (4.30-5.90); RDW 15.1 % (11.5-15.5); WBC 7.8 k/uL (3.8-10.6)
[2021-11-16 06:24] LABS: ALT <6 U/L (4-49); AST 17 U/L (17-59); African American GFR (CKD) 38 (>60 ml/min/1.73 sqM); Albumin/Globulin Ratio 0.9; Alkaline Phosphatase 71 U/L (38-126); Anion Gap 5 mmol/L; Blood Urea Nitrogen 23 mg/dL (9-20); Calcium 8.4 mg/dL (8.4-10.2); Carbon Dioxide 23 mmol/L (22-30); Chloride 111 mmol/L (98-107); Globulin 3.4 g/dL; Glucose 118 mg/dL (74-99); Magnesium 2.1 mg/dL (1.6-2.3); Non-African American GFR(CKD) 33 (>60 ml/min/1.73 sqM); Potassium 4.9 mmol/L (3.5-5.1); Sodium 139 mmol/L (137-145); Total Bilirubin 0.3 mg/dL (0.2-1.3); Total Protein 6.4 g/dL (6.3-8.2)
--- NOTE | 2021-11-16 06:49 | US ---
EXAMINATION TYPE: US arterial LE multi level DATE OF EXAM: 11/10/2021 5:05 PM CLINICAL HISTORY: heel wound. Below-knee amputation. Doppler Waveforms: Right: Biphasic Left: Biphasic Ankle-Brachial Indices: Right: 1.01 Left: AK amputation Toe Brachial Indices: Right: 0.53 Left: Amp IMPRESSION: Suboptimal study due to noncooperation. Slightly diminished right sided TBI suggests mil d peripheral arterial disease.
[2021-11-16 06:58] LABS: Glucose,Whole Blood 136 mg/dL (75-99)
[2021-11-16] MEDS: amLODIPine 10 MG TAB PO SCH (07:57)
[2021-11-16] MEDS: carvediloL 12.5 MG TAB PO SCH ×2 (07:57→17:04)
[2021-11-16] MEDS: SODIUM BICARBONATE TAB 650 MG TAB PO SCH (07:57)
[2021-11-16] MEDS: hydrALAZINE HCL 25 MG TAB PO SCH ×3 (07:57→20:24)
[2021-11-16] MEDS: FUROSEMIDE 40 MG TAB PO SCH (07:57)
[2021-11-16] MEDS: GABAPENTIN 100 MG CAP PO SCH ×3 (07:58→20:24)
[2021-11-16] MEDS: INSULIN ASPART (NovoLOG) 100 UNIT/ML VIAL SQ SCH ×4 (07:58→21:56)
[2021-11-16] MEDS: AMPICILLIN-SULBACTAM 3 GM in SODIUM CHLORIDE 0.9% 100 ML IVPB SCH ×3 (07:59→22:03)
[2021-11-16] MEDS: TICAGRELOR 90 MG TAB PO SCH ×2 (08:00→20:25)
[2021-11-16] MEDS: levETIRAcetam 500 MG TAB PO SCH ×2 (08:00→20:25)
[2021-11-16] MEDS: BENZOCAINE/MENTHOL LOZENG 1 EACH LOZENGE MUCOUS MEM PRN (08:04)
[2021-11-16] MEDS: SODIUM FERRIC GLUCONAT-SUCROSE 125 MG in SODIUM CHLORIDE 0.9% 100 ML IVPB SCH (09:26)
--- NOTE | 2021-11-16 10:45 | P.PN ---
Subjective Patient is seen in follow for acute kidney injury. Renal function slightly worse. He did receive IV Lasix yesterday. Oral intake is good. No vomiting or diarrhea. Denies chest pain or shortness of breath. No changes overnight. Hemodynamically stable. Vital signs are stable. General: Awake and alert. No acute distress. HEENT: Head exam is unremarkable. LUNGS: Breath sounds decreased. HEART: Rate and Rhythm are regular. ABDOMEN: Soft, obese. EXTREMITITES: BKA noted. Right foot wrapped. No drainage. Chronic changes noted. Objective - Vital Signs Vital signs: Vital Signs Temp 98.4 F 11/16/21 07:40 Pulse 86 11/16/21 07:40 Resp 18 11/16/21 07:40 BP 149/76 11/16/21 07:40 Pulse Ox 92 L 11/16/21 07:40 Intake & Output 11/15/21 11/16/21 11/16/21 18:59 06:59 18:59 Intake Total 100 Output Total 550 Balance -550 100 Weight 104 kg Intake: Intake, IV Titration 100 Amount Ampicillin-Sulbactam 3 gm 100 In Sodium Chloride 0.9% 100 ml @ 200 mls/hr IVPB Q8HR [facility] Rx#:[id number] Output: Urine 550 Other: Voiding Method Urinal Urinal # Voids 3 # Bowel Movements 3 - Labs CBC & Chem 7: 11/16/21 05:23 11/16/21 05:23 Labs: Abnormal Lab Results - Last 24 Hours (Table) 11/15/21 11/15/21 11/15/21 Range/Units 10:45 11:36 16:38 RBC (4.30-5.90) m/uL Hgb (13.0-17.5) gm/dL Hct (39.0-53.0) % Chloride 111 H (98-107) mmol/L Carbon Dioxide 21 L (22-30) mmol/L BUN 23 H (9-20) mg/dL Creatinine 1.99 H (0.66-1.25) mg/dL Glucose 220 H (74-99) mg/dL POC Glucose (mg/dL) 251 H 228 H (75-99) mg/dL Calcium 8.2 L (8.4-10.2) mg/dL Albumin (3.5-5.0) g/dL 0411/16/21 11/16/21 Range/Units 20:26 05:23 05:23 RBC 3.46 L (4.30-5.90) m/uL Hgb 9.8 L (13.0-17.5) gm/dL Hct 31.5 L (39.0-53.0) % Chloride 111 H (98-107) mmol/L Carbon Dioxide (22-30) mmol/L BUN 23 H (9-20) mg/dL Creatinine 2.11 H (0.66-1.25) mg/dL Glucose 118 H (74-99) mg/dL POC Glucose (mg/dL) 169 H (75-99) mg/dL Calcium (8.4-10.2) mg/dL Albumin 3.0 L (3.5-5.0) g/dL 11/16/21 Range/Units 06:56 RBC (4.30-5.90) m/uL Hgb (13.0-17.5) gm/dL Hct (39.0-53.0) % Chloride (98-107) mmol/L Carbon Dioxide (22-30) mmol/L BUN (9-20) mg/dL Creatinine (0.66-1.25) mg/dL Glucose (74-99) mg/dL POC Glucose (mg/dL) 136 H (75-99) mg/dL Calcium (8.4-10.2) mg/dL Albumin (3.5-5.0) g/dL Microbiology - Last 24 Hours (Table) 11/13/21 12:15 Gram Stain - Final Foot - Right Wound Culture - Final Acinetobacter ronit/haemol 11/11/21 13:20 Anaerobic Culture - Preliminary Heel - Right Methicillin resist S. aureus 11/10/21 11:19 Blood Culture - Preliminary Blood No Growth after 120 hours Assessment and Plan Plan: Assessment: 1. Acute kidney injury versus underlying chronic kidney disease. Creatinine a little worse from diuresis - 2.1 today. Unknown baseline renal function. Etiology is likely diabetic kidney disease. Kidney ultrasound showed no evidence of hydronephrosis. 2. Right foot nonhealing wound. Status post debridement 11/13/2021. Vascular surgery and infectious disease following. Wound culture positive for gram- negative bacilli and MRSA. 3. Status post left BKA. 4. Diabetes mellitus. 5. Anemia. Iron deficiency noted. No active bleeding. 6. Benign hypertension. Stable. 7. Metabolic acidosis secondary to acute kidney injury and IV fluids. On oral bicarbonate. Better. 8. Volume overload. Plan: Maintain oral Lasix. Maintain IV iron. Avoid nephrotoxins. Encourage oral intake. 1500 mL fluid restriction. Continue to monitor renal function and urine output. Discussed with the patient that he will need to follow-up outpatient to establish CKD care and for further workup of proteinuria.
[2021-11-16 11:24] LABS: Glucose,Whole Blood 206 mg/dL (75-99)
[2021-11-16] MEDS: DAPTOmycin 500 MG in SODIUM CHLORIDE 0.9% 50 ML IVPB SCH (12:21)
[2021-11-16] MEDS: oxyCODONE-APAP 7.5-325MG 1 EACH TAB PO PRN ×2 (12:21→20:27)
--- NOTE | 2021-11-16 16:13 | P.PN ---
Subjective Progress Note Date: 11/16/21 Principal diagnosis: Right heel diabetic wound infection Patient is a 61 year old male with a past medical history significant for left [id number] amputation in this patient with underlying diabetes presenting to the hospital with a nonhealing wound to the right heel and concern for secondary infection, patient did have MRI completed on 11/10/2021 with no evidence of osteomyelitis. The patient is status post surgical debridement of his right heel wound completed on 11/13/2021 with evidence of extension of the wound down to the wound On today's evaluation that is 11/16/2021, the patient should continue his to be afebrile, the patient pain to the right heel area is currently controlled , the patient denies chest pain shortness of breath cough, the patient denies nausea no vomiting no abdominal pain no diarrhea Objective - Vital Signs Vital signs: Vital Signs Temp 98.7 F 11/16/21 14:00 Pulse 83 11/16/21 14:00 Resp 17 11/16/21 14:00 BP 143/69 11/16/21 14:00 Pulse Ox 93 L 11/16/21 14:00 Intake & Output 11/15/21 11/16/21 11/16/21 18:59 06:59 18:59 Intake Total 100 Output Total 550 Balance -550 100 Weight 104 kg Intake: Intake, IV Titration 100 Amount Ampicillin-Sulbactam 3 gm 100 In Sodium Chloride 0.9% 100 ml @ 200 mls/hr IVPB Q8HR [facility] Rx#:[id number] Output: Urine 550 Other: Voiding Method Urinal Urinal # Voids 3 # Bowel Movements 3 - Exam GENERAL DESCRIPTION: Middle-aged male lying in bed in no distress RESPIRATORY SYSTEM: Unlabored breathing , decreased breath sounds at bases HEART: S1 S2 regular rate and rhythm , ABDOMEN: Soft , no tenderness EXTREMITIES: Right lateral heel is currently dressed no drainage on the dressing - Labs CBC & Chem 7: 11/16/21 05:23 11/16/21 05:23 Labs: Abnormal Lab Results - Last 24 Hours (Table) 11/15/21 11/15/21 11/16/21 Range/Units 16:38 20:26 05:23 RBC 3.46 L (4.30-5.90) m/uL Hgb 9.8 L (13.0-17.5) gm/dL Hct 31.5 L (39.0-53.0) % Chloride (98-107) mmol/L BUN (9-20) mg/dL Creatinine (0.66-1.25) mg/dL Glucose (74-99) mg/dL POC Glucose (mg/dL) 228 H 169 H (75-99) mg/dL Albumin (3.5-5.0) g/dL 11/16/21 11/16/21 11/16/21 Range/Units 05:23 06:56 11:22 RBC (4.30-5.90) m/uL Hgb (13.0-17.5) gm/dL Hct (39.0-53.0) % Chloride 111 H (98-107) mmol/L BUN 23 H (9-20) mg/dL Creatinine 2.11 H (0.66-1.25) mg/dL Glucose 118 H (74-99) mg/dL POC Glucose (mg/dL) 136 H 206 H (75-99) mg/dL Albumin 3.0 L (3.5-5.0) g/dL Microbiology - Last 24 Hours (Table) 11/10/21 11:19 Blood Culture - Final Blood No Growth after 144 hours 11/13/21 12:15 Gram Stain - Final Foot - Right Wound Culture - Preliminary Acinetobacter ronit/haemol 11/11/21 13:20 Anaerobic Culture - Preliminary Heel - Right Methicillin resist S. 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 2 the patient did have surgical debridement and deep culture has been finalized as MRSA along with Acinetobacter 3plan is for PICC line and total of 6 week course of therapy in the form of Unasyn and daptomycin and local care to continue per vascular surgery Time with Patient: Less than 30
[2021-11-16 16:45] LABS: Glucose,Whole Blood 159 mg/dL (75-99)
--- NOTE | 2021-11-16 17:48 | P.PN ---
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 In the ER he underwent an extensive evaluation was ultimately admitted for right lower extremity cellulitis, possible osteomyelitis, and infected ulcer. He was seen by vascular surgery and infectious disease. He was maintained on IV antibiotics. On 11/13/21 patient underwent right heel debridement. His initial wound cultures are growing gram-negative bacilli. Patient seen and examined at bedside. Feeling better leg is less swollen and red, still with drainage from ulcer. No chest pain, no shortness of breath, no nausea no vomiting. General: non toxic, no distress, appears at stated age Derm: warm, dry, abdoulaye appearance to right foot with chronic venous stasis changes and yellow plaquing Head: atraumatic, normocephalic, symmetric Eyes: EOMI, no lid lag, anicteric sclera Mouth: no lip lesion, mucus membranes moist Cardiovascular: S1S2 reg, no murmur, positive posterior tibial pulse bilateral, Lungs: Coarse breath sounds bilateral, no rhonchi, no rales , no accessory muscle use Abdominal: soft, nontender to palpation, no guarding, no appreciable organomegaly Ext: no gross muscle atrophy, 1+ edema right lower extremity, BKA left Neuro: CN II-XI grossly intact, no focal neuro deficits Psych: Alert, oriented, appropriate affect Assessment/plan Right heel infected wound with osteomyelitis PAD Prior BKA - s/p I and D - vascular recs - ID recs: PICC line6 weeks of IV abx - dapto and unasyn - Wound care recommendations appreciated. We'll follow up in wound care center. NAM vs CKD, suspect CKD - cr stable - nephro recs - avoid nephrotoxic agents - follow Cr Iron deficiency anemia - IV iron X 3 doses - follow CBC Diabetes mellitus type 2 with hyperglycemia, neuropathy -A1c 8.9 - levemir - SSI CVA - statin, Brillenta Tobacco abuse - cessation Dyslipidemia - statin Awaiting auth for rehab. Active Medications Amlodipine Besylate (Amlodipine 10 Mg Tab) 10 mg PO DAILY [facility] Last Admin: 11/16/21 07:57 Dose: 10 mg Documented by: Benzocaine/Menthol (Benzocaine/Menthol Lozeng 1 Each Lozenge) 1 each MUCOUS MEM Q4HR PRN PRN Reason: Cough Last Admin: 11/16/21 08:04 Dose: 1 each Documented by: Carvedilol (Carvedilol 12.5 Mg Tab) 12.5 mg PO BID-W/MEALS [facility] Last Admin: 11/16/21 17:04 Dose: 12.5 mg Documented by: Furosemide (Furosemide 40 Mg Tab) 40 mg PO DAILY [facility] Last Admin: 11/16/21 07:57 Dose: 40 mg Documented by: Gabapentin (Gabapentin 100 Mg Cap) 200 mg PO TID [facility] Last Admin: 11/16/21 17:04 Dose: 200 mg Documented by: Heparin Sodium (Porcine) (Heparin Sodium,Porcine/Pf 5,000 Unit/0.5 Ml Syringe) 5,000 unit SQ Q8HR [facility] Last Admin: 11/16/21 17:04 Dose: Not Given Documented by: Hydralazine HCl (Hydralazine Hcl 25 Mg Tab) 25 mg PO TID [facility] Last Admin: 11/16/21 17:04 Dose: 25 mg Documented by: Lactated Ringer's (Lactated Ringers) 1,000 mls @ 20 mls/hr IV .Q24H [facility] Last Admin: 11/16/21 02:12 Dose: Not Given Documented by: Ferric Sodium Gluconate 125 mg (/ Sodium Chloride) 110 mls @ 100 mls/hr IVPB DAILY [facility] Stop: 11/17/21 10:31 Last Admin: 11/16/21 09:26 Dose: 100 mls/hr Documented by: Ampicillin Sodium/Sulbactam (Sodium 3 gm/ Sodium Chloride) 100 mls @ 200 mls/hr IVPB Q8HR [facility]; Protocol Last Admin: 11/16/21 17:04 Dose: 200 mls/hr Documented by: Daptomycin 500 mg/ Sodium (Chloride) 50 mls @ 100 mls/hr IVPB Q24H [facility]; Pr otocol Last Admin: 11/16/21 12:21 Dose: 100 mls/hr Documented by: Insulin Aspart (Insulin Aspart (Novolog) 100 Unit/Ml Vial) 0 unit SQ ACHS [facility]; Protocol Last Admin: 11/16/21 12:21 Dose: 4 unit Documented by: Insulin Detemir (Insulin Detemir (Levemir) 100 Unit/Ml Syr) 22 unit SQ HS [facility] Last Admin: 11/15/21 20:56 Dose: 22 unit Documented by: Levetiracetam (Levetiracetam 500 Mg Tab) 1,000 mg PO BID [facility] Last Admin: 11/16/21 08:00 Dose: 1,000 mg Documented by: Morphine Sulfate (Morphine Sulfate 2 Mg/Ml Syringe) 2 mg IVP Q2H PRN PRN Reason: Severe Pain Last Admin: 11/16/21 17:03 Dose: 2 mg Documented by: Oxycodone/Acetaminophen (Oxycodone-Apap 7.5-325mg 1 Each Tab) 1 each PO Q6HR PRN PRN Reason: Pain Last Admin: 11/16/21 12:21 Dose: 1 each Documented by: Sodium Bicarbonate (Sodium Bicarbonate Tab 650 Mg Tab) 650 mg PO DAILY [facility] Last Admin: 11/16/21 07:57 Dose: 650 mg Documented by: Ticagrelor (Ticagrelor 90 Mg Tab) 90 mg PO BID [facility] Last Admin: 11/16/21 08:00 Dose: 90 mg Documented by: Objective - Vital Signs Vital signs: Vital Signs Temp 98.7 F 11/16/21 14:00 Pulse 83 11/16/21 14:00 Resp 17 11/16/21 14:00 BP 143/69 11/16/21 14:00 Pulse Ox 93 L 11/16/21 14:00 Intake & Output 11/15/21 11/16/21 11/16/21 18:59 06:59 18:59 Intake Total 100 Output Total 550 Balance -550 100 Weight 104 kg Intake: Intake, IV Titration 100 Amount Ampicillin-Sulbactam 3 gm 100 In Sodium Chloride 0.9% 100 ml @ 200 mls/hr IVPB Q8HR [facility] Rx#:[id number] Output: Urine 550 Other: Voiding Method Urinal Urinal # Voids 3 # Bowel Movements 3 - Labs CBC & Chem 7: 11/16/21 05:23 11/16/21 05:23 Labs: Abnormal Lab Results - Last 24 Hours (Table) 11/15/21 11/16/21 11/16/21 Range/Units 20:26 05:23 05:23 RBC 3.46 L (4.30-5.90) m/uL Hgb 9.8 L (13.0-17.5) gm/dL Hct 31.5 L (39.0-53.0) % Chloride 111 H (98-107) mmol/L BUN 23 H (9-20) mg/dL Creatinine 2.11 H (0.66-1.25) mg/dL Glucose 118 H (74-99) mg/dL POC Glucose (mg/dL) 169 H (75-99) mg/dL Albumin 3.0 L (3.5-5.0) g/dL 11/16/21 11/16/21 11/16/21 Range/Units 06:56 11:22 16:43 RBC (4.30-5.90) m/uL Hgb (13.0-17.5) gm/dL Hct (39.0-53.0) % Chloride (98-107) mmol/L BUN (9-20) mg/dL Creatinine (0.66-1.25) mg/dL Glucose (74-99) mg/dL POC Glucose (mg/dL) 136 H 206 H 159 H (75-99) mg/dL Albumin (3.5-5.0) g/dL Microbiology - Last 24 Hours (Table) 11/10/21 11:19 Blood Culture - Final Blood No Growth after 144 hours 11/13/21 12:15 Gram Stain - Final Foot - Right Wound Culture - Preliminary Acinetobacter ronit/haemol 11/11/21 13:20 Anaerobic Culture - Preliminary Heel - Right Methicillin resist S. aureus
[2021-11-16 20:22] LABS: Glucose,Whole Blood 199 mg/dL (75-99)
[2021-11-16] MEDS: INSULIN DETEMIR (LEVEMIR) 100 UNIT/ML SYR SQ SCH (21:56)
[2021-11-17] MEDS: MORPHINE SULFATE 2 MG/ML SYRINGE IVP PRN ×7 (01:12→22:50)
[2021-11-17] MEDS: oxyCODONE-APAP 7.5-325MG 1 EACH TAB PO PRN ×2 (03:39→09:39)
[2021-11-17 07:27] LABS: Glucose,Whole Blood 238 mg/dL (75-99)
[2021-11-17] MEDS: LACTATED RINGERS 1,000 ML IV SCH (07:44)
[2021-11-17 08:04] LABS: HCT 30.1 % (39.0-53.0); HGB 9.4 gm/dL (13.0-17.5); Hypochromasia Moderate; MCH 28.3 pg (25.0-35.0); MCHC 31.4 g/dL (31.0-37.0); MCV 90.1 fL (80.0-100.0); Mean Platelet Volume 7.1; Platelet Count 265 k/uL (150-450); RBC 3.34 m/uL (4.30-5.90); RDW 15.4 % (11.5-15.5); WBC 7.1 k/uL (3.8-10.6)
[2021-11-17 08:08] LABS: ALT <6 U/L (4-49); AST 17 U/L (17-59); African American GFR (CKD) 41 (>60 ml/min/1.73 sqM); Albumin/Globulin Ratio 0.9; Alkaline Phosphatase 71 U/L (38-126); Anion Gap 8 mmol/L; Blood Urea Nitrogen 21 mg/dL (9-20); Calcium 8.3 mg/dL (8.4-10.2); Carbon Dioxide 25 mmol/L (22-30); Chloride 107 mmol/L (98-107); Globulin 3.3 g/dL; Glucose 219 mg/dL (74-99); Non-African American GFR(CKD) 35 (>60 ml/min/1.73 sqM); Potassium 4.5 mmol/L (3.5-5.1); Sodium 140 mmol/L (137-145); Total Bilirubin 0.3 mg/dL (0.2-1.3); Total Protein 6.3 g/dL (6.3-8.2)
[2021-11-17] MEDS: HEPARIN SODIUM,PORCINE/PF 5,000 UNIT/0.5 ML SYRINGE SQ SCH ×2 (08:11→15:37)
[2021-11-17] MEDS: INSULIN ASPART (NovoLOG) 100 UNIT/ML VIAL SQ SCH ×4 (08:19→21:04)
[2021-11-17] MEDS: FUROSEMIDE 40 MG TAB PO SCH (08:20)
[2021-11-17] MEDS: levETIRAcetam 500 MG TAB PO SCH ×2 (08:20→21:05)
[2021-11-17] MEDS: GABAPENTIN 100 MG CAP PO SCH ×3 (08:20→21:04)
[2021-11-17] MEDS: TICAGRELOR 90 MG TAB PO SCH ×2 (08:20→21:20)
[2021-11-17] MEDS: hydrALAZINE HCL 25 MG TAB PO SCH ×3 (08:20→21:04)
[2021-11-17] MEDS: carvediloL 12.5 MG TAB PO SCH ×2 (08:20→16:53)
[2021-11-17] MEDS: amLODIPine 10 MG TAB PO SCH (08:20)
[2021-11-17] MEDS: SODIUM BICARBONATE TAB 650 MG TAB PO SCH (08:20)
[2021-11-17] MEDS: AMPICILLIN-SULBACTAM 3 GM in SODIUM CHLORIDE 0.9% 100 ML IVPB SCH ×3 (08:38→23:47)
[2021-11-17] MEDS: SODIUM FERRIC GLUCONAT-SUCROSE 125 MG in SODIUM CHLORIDE 0.9% 100 ML IVPB SCH (10:10)
[2021-11-17] MEDS: DAPTOmycin 500 MG in SODIUM CHLORIDE 0.9% 50 ML IVPB SCH (12:51)
[2021-11-17 12:52] LABS: Glucose,Whole Blood 170 mg/dL (75-99)
--- NOTE | 2021-11-17 12:56 | P.PN ---
Subjective Progress Note Date: 11/17/21 For acute kidney injury. Sleepy today. Objective - Vital Signs Vital signs: Vital Signs Temp 99.0 F 11/17/21 01:00 Pulse 76 11/17/21 08:00 Resp 16 11/17/21 09:27 BP 153/68 11/17/21 08:00 Pulse Ox 93 L 11/17/21 01:00 Intake & Output 11/16/21 11/17/21 11/17/21 18:59 06:59 18:59 Output Total 725 Balance -725 Output: Urine 725 Other: Voiding Method Urinal Urinal # Voids 4 1 # Bowel Movements 3 0 - Exam No acute distress Decreased breath sounds S1-S2 heard No edema - Labs CBC & Chem 7: 11/17/21 07:23 11/17/21 07:23 Labs: Abnormal Lab Results - Last 24 Hours (Table) 11/16/21 11/16/21 11/17/21 Range/Units 16:43 19:58 07:23 RBC 3.34 L (4.30-5.90) m/uL Hgb 9.4 L (13.0-17.5) gm/dL Hct 30.1 L (39.0-53.0) % BUN (9-20) mg/dL Creatinine (0.66-1.25) mg/dL Glucose (74-99) mg/dL POC Glucose (mg/dL) 159 H 199 H (75-99) mg/dL Calcium (8.4-10.2) mg/dL Albumin (3.5-5.0) g/dL 11/17/21 11/17/21 11/17/21 Range/Units 07:23 07:25 12:32 RBC (4.30-5.90) m/uL Hgb (13.0-17.5) gm/dL Hct (39.0-53.0) % BUN 21 H (9-20) mg/dL Creatinine 1.99 H (0.66-1.25) mg/dL Glucose 219 H (74-99) mg/dL POC Glucose (mg/dL) 238 H 170 H (75-99) mg/dL Calcium 8.3 L (8.4-10.2) mg/dL Albumin 3.0 L (3.5-5.0) g/dL Microbiology - Last 24 Hours (Table) 11/11/21 13:20 Anaerobic Culture - Final Heel - Right Methicillin resist S. aureus Anaerobic Gm Negative Bacilli 11/10/21 11:19 Blood Culture - Final Blood No Growth after 144 hours 11/13/21 12:15 Gram Stain - Final Foot - Right Wound Culture - Preliminary Acinetobacter ronit/haemol Assessment and Plan Assessment: #1 acute kidney injury versus progressive chronic kidney disease. #2 status post left BKA #3 diabetes on insulin #4 anemia with chronic kidney disease #5 hypertension with chronic kidney disease #6 proteinuria suspect secondary to diabetes. Serological workup as outpatient Plan: #1 renal function stable #2 continue with Lasix 40 mg by mouth daily #3 antibiotics as per infectious disease #4 avoid nephrotoxic agents.
--- NOTE | 2021-11-17 14:22 | US ---
EXAMINATION TYPE: US scrotum with doppler. Grayscale and color Doppler Duplex imaging performed of heena leal scrotum. DATE OF EXAM: 11/17/2021 COMPARISON: NONE CLINICAL HISTORY: scrotum edema. Pain and swelling EXAM MEASUREMENTS: TESTICLES: Right Testicle: 2.1 x 3.3 x 2.4 cm Wall thickening 2.2 cm. Left Testicle: 2.8 x 2.6 x 2.3 cm Wall thickening 2.4 cm. EPIDIDYMIS HEAD: Right Epididymis: 1.1 x .9 cm Left Epididymis: 1.3 x 1.2 cm Two subcentimeter cystic areas seen. Doppler performed to assess for testicular vascularity; good bilateral color flow and waveforms are s een. There is no evidence of testicular torsion. IMPRESSION: There are left-sided epididymal cysts that measure up to 7 mm. No evidence of testicular torsion or m ass. There is significant scrotal edema. There are small bilateral hydroceles.
[2021-11-17 16:50] LABS: Glucose,Whole Blood 208 mg/dL (75-99)
[2021-11-17] MEDS: oxyCODONE-APAP 10-325MG 1 EACH TAB PO PRN (16:52)
--- NOTE | 2021-11-17 17:18 | P.PN ---
Subjective Progress Note Date: 11/17/21 (delayed charting seen at 0945) Principal diagnosis: heel pain Patient is a 61-year-old male with a history of prior left BKA due to nonhealing ulcer proximally 6 months ago, diabetes mellitus type 2, seizure disorder, and hypertension who presented to the ER complaints of right leg pain, foot pain, and redness. In the ER he underwent an extensive evaluation was ultimately admitted for right lower extremity cellulitis, possible osteomyelitis, and infected ulcer. He was seen by vascular surgery and infectious disease. He was maintained on IV antibiotics. On 11/13/21 patient underwent right heel debridement. His wound cultures grew Acenitobacter and MRSA Patient seen and examined at bedside. Complains of scrotal swelling and pain, no chest pain, no nausea, no vomiting General: non toxic, no distress, appears at stated age Derm: warm, dry, abdoulaye appearance to right foot with chronic venous stasis changes and yellow plaquing Head: atraumatic, normocephalic, symmetric Eyes: EOMI, no lid lag, anicteric sclera Mouth: no lip lesion, mucus membranes moist Cardiovascular: S1S2 reg, no murmur, positive posterior tibial pulse bilateral, Lungs: Coarse breath sounds bilateral, no rhonchi, no rales , no accessory muscle use Abdominal: soft, nontender to palpation, no guarding, no appreciable organomegaly Ext: no gross muscle atrophy, 1+ edema right lower extremity, BKA left Neuro: CN II-XI grossly intact, no focal neuro deficits Psych: Alert, oriented, appropriate affect Assessment/plan Right heel infected wound with osteomyelitis PAD Prior BKA - s/p I and D - vascular recs - ID recs: PICC line 6 weeks of IV abx - dapto and unasyn - Wound care recommendations appreciated. We'll follow up in wound care center. - increased percocet dosing NAM vs CKD, suspect CKD - cr stable - nephro recs - avoid nephrotoxic agents - follow Cr Iron deficiency anemia - IV iron X 3 doses - follow CBC Diabetes mellitus type 2 with hyperglycemia, neuropathy - A1c 8.9 - levemir - SSI CVA - statin, Brillenta Tobacco abuse - cessation Dyslipidemia - statin Awaiting auth for rehab. Active Medications Amlodipine Besylate (Amlodipine 10 Mg Tab) 10 mg PO DAILY [facility] Last Admin: 11/17/21 08:20 Dose: 10 mg Documented by: Benzocaine/Menthol (Benzocaine/Menthol Lozeng 1 Each Lozenge) 1 each MUCOUS MEM Q4HR PRN PRN Reason: Cough Last Admin: 11/16/21 08:04 Dose: 1 each Documented by: Carvedilol (Carvedilol 12.5 Mg Tab) 12.5 mg PO BID-W/MEALS [facility] Last Admin: 11/17/21 16:53 Dose: 12.5 mg Documented by: Furosemide (Furosemide 40 Mg Tab) 40 mg PO DAILY [facility] Last Admin: 11/17/21 08:20 Dose: 40 mg Documented by: Gabapentin (Gabapentin 100 Mg Cap) 200 mg PO TID [facility] Last Admin: 11/17/21 16:53 Dose: 200 mg Documented by: Heparin Sodium (Porcine) (Heparin Sodium,Porcine/Pf 5,000 Unit/0.5 Ml Syringe) 5,000 unit SQ Q8HR [facility] Last Admin: 11/17/21 15:37 Dose: Not Given Documented by: Hydralazine HCl (Hydralazine Hcl 25 Mg Tab) 25 mg PO TID [facility] Last Admin: 11/17/21 16:53 Dose: 25 mg Documented by: Lactated Ringer's (Lactated Ringers) 1,000 mls @ 20 mls/hr IV .Q24H [facility] Last Admin: 11/17/21 07:44 Dose: Not Given Documented by: Ampicillin Sodium/Sulbactam (Sodium 3 gm/ Sodium Chloride) 100 mls @ 200 mls/hr IVPB Q8HR [facility]; Protocol Last Admin: 11/17/21 16:53 Dose: 200 mls/hr Documented by: Daptomycin 500 mg/ Sodium (Chloride) 50 mls @ 100 mls/hr IVPB Q24H [facility]; Protocol Last Admin: 11/17/21 12:51 Dose: 100 mls/hr Documented by: Insulin Aspart (Insulin Aspart (Novolog) 100 Unit/Ml Vial) 0 unit SQ [facility]; Protocol Last Admin: 11/17/21 16:53 Dose: 4 unit Documented by: Insulin Detemir (Insulin Detemir (Levemir) 100 Unit/Ml Syr) 22 unit SQ [facility] Last Admin: 11/16/21 21:56 Dose: 22 unit Documented by: Levetiracetam (Levetiracetam 500 Mg Tab) 1,000 mg PO BID [facility] Last Admin: 11/17/21 08:20 Dose: 1,000 mg Documented by: Morphine Sulfate (Morphine Sulfate 2 Mg/Ml Syringe) 2 mg IVP Q3HR PRN PRN Reason: Severe Pain Oxycodone/Acetaminophen (Oxycodone-Apap 10-325mg 1 Each Tab) 1 each PO Q6HR PRN PRN Reason: Pain Last Admin: 11/17/21 16:52 Dose: 1 each Documented by: Sodium Bicarbonate (Sodium Bicarbonate Tab 650 Mg Tab) 650 mg PO DAILY [facility] Last Admin: 11/17/21 08:20 Dose: 650 mg Documented by: Ticagrelor (Ticagrelor 90 Mg Tab) 90 mg PO BID [facility] Last Admin: 11/17/21 08:20 Dose: 90 mg Documented by: Objective - Vital Signs Vital signs: Vital Signs Temp 98.6 F 11/17/21 14:00 Pulse 84 11/17/21 14:00 Resp 18 11/17/21 14:00 BP 144/69 11/17/21 14:00 Pulse Ox 98 11/17/21 14:00 Intake & Output 11/16/21 11/17/21 11/17/21 18:59 06:59 18:59 Output Total 725 400 Balance -725 -400 Output: Urine 725 400 Other: Voiding Method Urinal Urinal # Voids 4 1 # Bowel Movements 3 0 - Labs CBC & Chem 7: 11/17/21 07:23 11/17/21 07:23 Labs: Abnormal Lab Results - Last 24 Hours (Table) 11/16/21 11/17/21 11/17/21 Range/Units 19:58 07:23 07:23 RBC 3.34 L (4.30-5.90) m/uL Hgb 9.4 L (13.0-17.5) gm/dL Hct 30.1 L (39.0-53.0) % BUN 21 H (9-20) mg/dL Creatinine 1.99 H (0.66-1.25) mg/dL Glucose 219 H (74-99) mg/dL POC Glucose (mg/dL) 199 H (75-99) mg/dL Calcium 8.3 L (8.4-10.2) mg/dL Albumin 3.0 L (3.5-5.0) g/dL 11/17/21 11/17/21 11/17/21 Range/Units 07:25 12:32 16:48 RBC (4.30-5.90) m/uL Hgb (13.0-17.5) gm/dL Hct (39.0-53.0) % BUN (9-20) mg/dL Creatinine (0.66-1.25) mg/dL Glucose (74-99) mg/dL POC Glucose (mg/dL) 238 H 170 H 208 H (75-99) mg/dL Calcium (8.4-10.2) mg/dL Albumin (3.5-5.0) g/dL Microbiology - Last 24 Hours (Table) 11/13/21 12:15 Anaerobic Culture - Final Foot - Right 11/11/21 13:20 Anaerobic Culture - Final Heel - Right Methicillin resist S. aureus Anaerobic Gm Negative Bacilli 11/10/21 11:19 Blood Culture - Final Blood No Growth after 144 hours
--- NOTE | 2021-11-17 17:47 | P.PN ---
Subjective Progress Note Date: 11/17/21 Principal diagnosis: Right heel diabetic wound infection Patient is a 61 year old male with a past medical history significant for left [id number] amputation in this patient with underlying diabetes presenting to the hospital with a nonhealing wound to the right heel and concern for secondary infection, patient did have MRI completed on 11/10/2021 with no evidence of osteomyelitis. The patient is status post surgical debridement of his right heel wound completed on 11/13/2021 with evidence of extension of the wound down to the wound On today's evaluation that is 11/17/2021, the patient remains to be afebrile, the patient pain to the right heel area is currently controlled , the patient denies chest pain shortness of breath cough, the patient denies nausea no vomiting no abdominal pain no diarrhea, patient is currently waiting for placement Objective - Vital Signs Vital signs: Vital Signs Temp 98.6 F 11/17/21 14:00 Pulse 84 11/17/21 14:00 Resp 18 11/17/21 14:00 BP 144/69 11/17/21 14:00 Pulse Ox 98 11/17/21 14:00 Intake & Output 11/16/21 11/17/21 11/17/21 18:59 06:59 18:59 Output Total 725 400 Balance -725 -400 Output: Urine 725 400 Other: Voiding Method Urinal Urinal # Voids 4 1 # Bowel Movements 3 0 - Exam GENERAL DESCRIPTION: Middle-aged male lying in bed in no distress RESPIRATORY SYSTEM: Unlabored breathing , decreased breath sounds at bases HEART: S1 S2 regular rate and rhythm , ABDOMEN: Soft , no tenderness EXTREMITIES: Right lateral heel is currently dressed no drainage on the dressing - Labs CBC & Chem 7: 11/17/21 07:23 11/17/21 07:23 Labs: Abnormal Lab Results - Last 24 Hours (Table) 11/16/21 11/16/21 11/17/21 Range/Units 16:43 19:58 07:23 RBC 3.34 L (4.30-5.90) m/uL Hgb 9.4 L (13.0-17.5) gm/dL Hct 30.1 L (39.0-53.0) % BUN (9-20) mg/dL Creatinine (0.66-1.25) mg/dL Glucose (74-99) mg/dL POC Glucose (mg/dL) 159 H 199 H (75-99) mg/dL Calcium (8.4-10.2) mg/dL Albumin (3.5-5.0) g/dL 11/17/21 11/17/21 11/17/21 Range/Units 07:23 07:25 12:32 RBC (4.30-5.90) m/uL Hgb (13.0-17.5) gm/dL Hct (39.0-53.0) % BUN 21 H (9-20) mg/dL Creatinine 1.99 H (0.66-1.25) mg/dL Glucose 219 H (74-99) mg/dL POC Glucose (mg/dL) 238 H 170 H (75-99) mg/dL Calcium 8.3 L (8.4-10.2) mg/dL Albumin 3.0 L (3.5-5.0) g/dL Microbiology - Last 24 Hours (Table) 11/11/21 13:20 Anaerobic Culture - Final Heel - Right Methicillin resist S. aureus Anaerobic Gm Negative Bacilli 11/10/21 11:19 Blood Culture - Final Blood No Growth after 144 hours Assessment and Plan (1) Decubitus ulcer of foot Current Visit: Yes Status: Acute Code(s): L89.899 - PRESSURE ULCER OF OTHER SITE, UNSPECIFIED STAGE SNOMED Code(s): 9819117281 Plan: 1patient with right lateral heel/foot area diabetic foot ulcer started with debridement of the callus by his sanitarian aide few weeks ago with concern for secondary cellulitis, plain x-ray and MRI did not show any evidence of osteomye litis at this point and will need to cover for the polymicrobial marianna usually associated with diabetic foot infection. 2 the patient did have surgical debridement with evidence of wound extended arlin n to the board concerning for acute bacterial Osteomyelitis and deep culture has been finalized as MRSA along with Acinetobacter 3patient to continue with Unasyn and daptomycin currently waiting for placement Time with Patient: Less than 30
[2021-11-17 20:42] LABS: Glucose,Whole Blood 259 mg/dL (75-99)
[2021-11-17] MEDS: INSULIN DETEMIR (LEVEMIR) 100 UNIT/ML SYR SQ SCH (21:04)
[2021-11-18] MEDS: HEPARIN SODIUM,PORCINE/PF 5,000 UNIT/0.5 ML SYRINGE SQ SCH ×3 (00:47→16:27)
[2021-11-18] MEDS: oxyCODONE-APAP 10-325MG 1 EACH TAB PO PRN ×4 (01:42→22:50)
[2021-11-18] MEDS: MORPHINE SULFATE 2 MG/ML SYRINGE IVP PRN ×5 (03:02→21:30)
[2021-11-18] MEDS: LACTATED RINGERS 1,000 ML IV SCH (06:03)
[2021-11-18 07:32] LABS: Glucose,Whole Blood 223 mg/dL (75-99)
[2021-11-18] MEDS: SODIUM BICARBONATE TAB 650 MG TAB PO SCH (09:04)
[2021-11-18] MEDS: levETIRAcetam 500 MG TAB PO SCH ×2 (09:05→21:34)
[2021-11-18] MEDS: GABAPENTIN 100 MG CAP PO SCH (09:05)
[2021-11-18] MEDS: carvediloL 12.5 MG TAB PO SCH ×2 (09:05→16:34)
[2021-11-18] MEDS: amLODIPine 10 MG TAB PO SCH (09:05)
[2021-11-18] MEDS: hydrALAZINE HCL 25 MG TAB PO SCH ×3 (09:05→21:35)
[2021-11-18] MEDS: TICAGRELOR 90 MG TAB PO SCH ×2 (09:05→21:35)
[2021-11-18] MEDS: FUROSEMIDE 40 MG TAB PO SCH (09:05)
[2021-11-18] MEDS: INSULIN ASPART (NovoLOG) 100 UNIT/ML VIAL SQ SCH ×4 (09:08→21:34)
[2021-11-18] MEDS: AMPICILLIN-SULBACTAM 3 GM in SODIUM CHLORIDE 0.9% 100 ML IVPB SCH ×3 (09:09→21:35)
[2021-11-18] MEDS ORDERED: FUROSEMIDE 10 MG/ML 4 ML VIAL IV STA (09:37)
[2021-11-18] MEDS ORDERED: MORPHINE SULFATE 4 MG/ML SYRINGE IVP STA (09:39)
[2021-11-18 11:26] LABS: Glucose,Whole Blood 228 mg/dL (75-99)
[2021-11-18] MEDS: DAPTOmycin 500 MG in SODIUM CHLORIDE 0.9% 50 ML IVPB SCH (12:03)
--- NOTE | 2021-11-18 12:33 | XR ---
EXAMINATION TYPE: XR chest 1V portable DATE OF EXAM: 11/18/2021 COMPARISON: 11/09/2021 HISTORY: Shortness of breath TECHNIQUE: Frontal and lateral views of the chest are obtained. FINDINGS: Scattered senescent parenchymal changes noted. Hyperinflation compatible with COPD. Strandy linear densities about the perihilar and basilar regions may reflect atelectasis and/or infil trate. Heart size is stable. Mediastinal structures are stable and grossly unremarkable. No evidence for hilar prominence. Degenerative changes dorsal spine. IMPRESSION: 1. Strandy linear densities about the perihilar and basilar regions may reflect atelectasis and/or in filtrate.
--- NOTE | 2021-11-18 12:37 | US ---
EXAMINATION TYPE: US venous doppler duplex LE DATE OF EXAM: 11/18/2021 10:57 AM COMPARISON: NONE CLINICAL HISTORY: edema and pain. Pain some limitations due to edema. Left leg amputated at knee SIDE PERFORMED: Bilateral TECHNIQUE: The lower extremity deep venous system is examined utilizing real time linear array sonog marie with graded compression, doppler sonography and color-flow sonography. VESSELS IMAGED: Common Femoral Vein Deep Femoral Vein Greater Saphenous Vein * Femoral Vein Popliteal Vein Small Saphenous Vein * Proximal Calf Veins (* superficial vessels) Right Leg: Negative for DVT Left Leg: Negative for DVT IMPRESSION: No evidence of DVT.
--- NOTE | 2021-11-18 13:23 | P.PN ---
Subjective Progress Note Date: 11/18/21 For acute kidney injury. Objective - Vital Signs Vital signs: Vital Signs Temp 98.4 F 11/18/21 08:00 Pulse 89 11/18/21 08:00 Resp 20 11/18/21 09:30 BP 167/69 11/18/21 08:00 Pulse Ox 96 11/18/21 08:00 Intake & Output 11/17/21 11/18/21 11/18/21 18:59 06:59 18:59 Output Total 1300 Balance -1300 Output: Urine 1300 Other: Voiding Method Urinal Urinal Urinal - Exam No acute distress Decreased breath sounds S1-S2 heard edema - Labs CBC & Chem 7: 11/17/21 07:23 11/17/21 07:23 Labs: Abnormal Lab Results - Last 24 Hours (Table) 11/17/21 11/17/21 11/18/21 Range/Units 16:48 20:41 07:30 POC Glucose (mg/dL) 208 H 259 H 223 H (75-99) mg/dL 11/18/21 Range/Units 11:25 POC Glucose (mg/dL) 228 H (75-99) mg/dL Microbiology - Last 24 Hours (Table) 11/13/21 12:15 Anaerobic Culture - Final Foot - Right Assessment and Plan Assessment: #1 acute kidney injury versus progressive chronic kidney disease. #2 status post left BKA #3 diabetes on insulin #4 anemia with chronic kidney disease #5 hypertension with chronic kidney disease #6 proteinuria suspect secondary to diabetes. Serological workup as outpatient Plan: #1 renal function stable #2 continue with diuretics, changed to Bumex 1 mg twice a day. #3 antibiotics as per infectious disease #4 avoid nephrotoxic agents.
--- NOTE | 2021-11-18 14:35 | P.PN ---
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 In the ER he underwent an extensive evaluation was ultimately admitted for right lower extremity cellulitis, possible osteomyelitis, and infected ulcer. He was seen by vascular surgery and infectious disease. He was maintained on IV antibiotics. On 11/13/21 patient underwent right heel debridement. His wound cultures grew Acenitobacter and MRSA Patient seen and examined at bedside. He is very upset and agitated. States that no one knows how bad his pain is. He is demanding that someone due something about his scrotal edema. I explained that his ultrasound showed edema but nothing that needed intervention. I recommended elevated for the scrotum and continued lasix. He state that his legs are more swollen and numb than on admission. I explained that there are more divots and wrinkles in his legs that prior and that his swelling in decreased. He diuresied 1000ml yesterday. He has refused his antibiotics today due to the amount of fluids. I advised him that hf he refused antibiotics he will end up with an amputation again. He then complains about sleep, his IV beeping, the care, and a multitude of other things. I excused myself from his room at that time. General: non toxic, no distress, appears at stated age Derm: warm, dry, abdoulaye appearance to right leg with chronic venous stasis changes and yellow plaquing, decreased edema and dressing in place over ulcer Head: atraumatic, normocephalic, symmetric Eyes: EOMI, no lid lag, anicteric sclera Mouth: no lip lesion, mucus membranes moist Cardiovascular: S1S2 tachy, no murmur, positive posterior tibial pulse bilateral, Lungs: Coarse breath sounds bilateral, no rhonchi, no rales , no accessory muscle use Ext: no gross muscle atrophy, 1+ edema right lower extremity, BKA left - scrotal edema Neuro: CN II-XI grossly intact, no focal neuro deficits Psych: Alert, oriented, appropriate affect Assessment/plan: Right heel infected wound with osteomyelitis PAD Prior BKA - s/p I and D - vascular recs - ID recs: PICC line 6 weeks of IV abx - dapto and unasyn - Wound care recommendations appreciated. He'll follow up in wound care center. - percocet for pain - 1 time extra dose of morphine - lasix IV X 1, then nephro transitioned from lasix to oral bumex Scrotal edema - elevation - urology consult as patient insists that someone can drain his scrotum - scrotal ultrasound with edema, 1 mm cyst and small hydrocele NAM vs CKD, suspect CKD - cr stable - nephro recs - avoid nephrotoxic agents - follow Cr Iron deficiency anemia - s/p IV iron X 3 doses - follow CBC Diabetes mellitus type 2 with hyperglycemia, neuropathy - A1c 8.9 - levemir increased - SSI CVA - statin, Brillenta Tobacco abuse - cessation Dyslipidemia - statin Awaiting auth for rehab. Active Medications Amlodipine Besylate (Amlodipine 10 Mg Tab) 10 mg PO DAILY [facility] Last Admin: 11/18/21 09:05 Dose: 10 mg Documented by: Benzocaine/Menthol (Benzocaine/Menthol Lozeng 1 Each Lozenge) 1 each MUCOUS MEM Q4HR PRN PRN Reason: Cough Last Admin: 11/16/21 08:04 Dose: 1 each Documented by: Bumetanide (Bumetanide 1 Mg Tab) 1 mg PO BID@0900,1600 [facility] Carvedilol (Carvedilol 12.5 Mg Tab) 12.5 mg PO BID-W/MEALS [facility] Last Admin: 11/18/21 09:05 Dose: 12.5 mg Documented by: Gabapentin (Gabapentin 400 Mg Cap) 400 mg PO TID [facility] Heparin Sodium (Porcine) (Heparin Sodium,Porcine/Pf 5,000 Unit/0.5 Ml Syringe) 5,000 unit SQ Q8HR [facility] Last Admin: 11/18/21 09:05 Dose: Not Given Documented by: Hydralazine HCl (Hydralazine Hcl 25 Mg Tab) 25 mg PO TID [facility] Last Admin: 11/18/21 09:05 Dose: 25 mg Documented by: Lactated Ringer's (Lactated Ringers) 1,000 mls @ 20 mls/hr IV .Q24H [facility] Last Admin: 11/18/21 06:03 Dose: 20 mls/hr Documented by: Ampicillin Sodium/Sulbactam (Sodium 3 gm/ Sodium Chloride) 100 mls @ 200 mls/hr IVPB Q8HR [facility]; Protocol Last Admin: 11/18/21 09:09 Dose: Not Given Documented by: Daptomycin 500 mg/ Sodium (Chloride) 50 mls @ 100 mls/hr IVPB Q24H [facility]; Protocol Last Admin: 11/18/21 12:03 Dose: 100 mls/hr Documented by: Insulin Aspart (Insulin Aspart (Novolog) 100 Unit/Ml Vial) 0 unit SQ ACHS [facility]; Protocol Last Admin: 11/18/21 12:08 Dose: 5 unit Documented by: Insulin Detemir (Insulin Detemir (Levemir) 100 Unit/Ml Syr) 22 unit SQ HS [facility] Last Admin: 11/17/21 21:04 Dose: 22 unit Documented by: Levetiracetam (Levetiracetam 500 Mg Tab) 1,000 mg PO BID [facility] Last Admin: 11/18/21 09:05 Dose: 1,000 mg Documented by: Morphine Sulfate (Morphine Sulfate 2 Mg/Ml Syringe) 2 mg IVP Q3HR PRN PRN Reason: Severe Pain Last Admin: 11/18/21 13:40 Dose: 2 mg Documented by: Oxycodone/Acetaminophen (Oxycodone-Apap 10-325mg 1 Each Tab) 1 each PO Q6HR PRN PRN Reason: Pain Last Admin: 11/18/21 08:51 Dose: 1 each Documented by: Sodium Bicarbonate (Sodium Bicarbonate Tab 650 Mg Tab) 650 mg PO DAILY [facility] Last Admin: 11/18/21 09:04 Dose: 650 mg Documented by: Ticagrelor (Ticagrelor 90 Mg Tab) 90 mg PO BID [facility] Last Admin: 11/18/21 09:05 Dose: 90 mg Documented by: Objective - Vital Signs Vital signs: Vital Signs Temp 98.4 F 11/18/21 08:00 Pulse 89 11/18/21 08:00 Resp 20 11/18/21 09:30 BP 167/69 11/18/21 08:00 Pulse Ox 96 11/18/21 08:00 Intake & Output 11/17/21 11/18/21 11/18/21 18:59 06:59 18:59 Output Total 1300 Balance -1300 Output: Urine 1300 Other: Voiding Method Urinal Urinal Urinal - Labs CBC & Chem 7: 11/17/21 07:23 11/17/21 07:23 Labs: Abnormal Lab Results - Last 24 Hours (Table) 11/17/21 11/17/21 11/18/21 Range/Units 16:48 20:41 07:30 POC Glucose (mg/dL) 208 H 259 H 223 H (75-99) mg/dL 11/18/21 Range/Units 11:25 POC Glucose (mg/dL) 228 H (75-99) mg/dL Microbiology - Last 24 Hours (Table) 11/13/21 12:15 Anaerobic Culture - Final Foot - Right
[2021-11-18 16:15] LABS: Glucose,Whole Blood 201 mg/dL (75-99)
[2021-11-18] MEDS: BUMETANIDE 1 MG TAB PO SCH (16:34)
[2021-11-18] MEDS: GABAPENTIN 400 MG CAP PO SCH ×2 (16:34→21:34)
--- NOTE | 2021-11-18 17:44 | P.PN ---
Subjective Progress Note Date: 11/18/21 Principal diagnosis: Right heel diabetic wound infection Patient is a 61 year old male with a past medical history significant for left [id number] amputation in this patient with underlying diabetes presenting to the hospital with a nonhealing wound to the right heel and concern for secondary infection, patient did have MRI completed on 11/10/2021 with no evidence of osteomyelitis. The patient is status post surgical debridement of his right heel wound completed on 11/13/2021 with evidence of extension of the wound down to the wound On today's evaluation that is 11/18/2021, the patient continues to be afebrile, the patient pain to the right heel area is currently controlled , the patient denies chest pain shortness of breath cough, the patient denies nausea no vomiting no abdominal pain no diarrhea, no new symptoms reported Objective - Vital Signs Vital signs: Vital Signs Temp 98.7 F 11/18/21 14:00 Pulse 84 11/18/21 14:00 Resp 16 11/18/21 14:00 BP 130/62 11/18/21 14:00 Pulse Ox 93 L 11/18/21 14:00 Intake & Output 11/17/21 11/18/21 11/18/21 18:59 06:59 18:59 Output Total 1300 Balance -1300 Output: Urine 1300 Other: Voiding Method Urinal Urinal Urinal - Exam GENERAL DESCRIPTION: Middle-aged male lying in bed in no distress RESPIRATORY SYSTEM: Unlabored breathing , decreased breath sounds at bases HEART: S1 S2 regular rate and rhythm , ABDOMEN: Soft , no tenderness EXTREMITIES: Right lateral heel wound did have some slough tissue some surrounding redness no foul-smelling drainage - Labs CBC & Chem 7: 11/17/21 07:23 11/17/21 07:23 Labs: Abnormal Lab Results - Last 24 Hours (Table) 11/17/21 11/17/21 11/18/21 Range/Units 16:48 20:41 07:30 POC Glucose (mg/dL) 208 H 259 H 223 H (75-99) mg/dL 11/18/21 11/18/21 Range/Units 11:25 16:13 POC Glucose (mg/dL) 228 H 201 H (75-99) mg/dL Microbiology - Last 24 Hours (Table) 11/13/21 12:15 Anaerobic Culture - Final Foot - Right Assessment and Plan (1) Decubitus ulcer of foot Current Visit: Yes Status: Acute Code(s): L89.899 - PRESSURE ULCER OF OTHER SITE, UNSPECIFIED STAGE SNOMED Code(s): 7689693610 Plan: 1patient with right lateral heel/foot area diabetic foot ulcer started with debridement of the callus by his special skills officer few weeks ago with concern for secondary cellulitis, plain x-ray and MRI did not show any evidence of os teomyelitis at this point and will need to cover for the polymicrobial marianna usually associated with diabetic foot infection. 2 the patient did have surgical debridement with evidence of wound extended down to the board concerning for acute bacterial Osteomyelitis and deep culture has been finalized as MRSA along with Acinetobacter 3patient to continue with Unasyn and daptomycin, duration of the biotic be total of 6 weeks the patient currently waiting for placement 4-local wound care will be switched over to medahoney followed by moist dressing to be changed daily discussed with the RN Time with Patient: Less than 30
[2021-11-18 20:45] LABS: Glucose,Whole Blood 211 mg/dL (75-99)
[2021-11-18] MEDS: INSULIN DETEMIR (LEVEMIR) 100 UNIT/ML SYR SQ SCH (22:00)
--- NOTE | 2021-11-18 22:08 | P.GSCN ---
History of Present Illness Consult date: 11/18/21 Reason for Consult: Scrotal edema Requesting physician: Mer Grissom History of present illness: The patient is a 61-year-old white male with a history of type 2 diabetes mellitus, seizure disorder, and hypertension who underwent a left BKA due to a nonhealing ulcer approximately 6 months ago. He is now being treated for right lower extremity cellulitis. He has been noted to have scrotal edema. I am consulted for this reason. Review of Systems - Constitutional Denies chills, Denies fever 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), MRSA Year Discovered:: 11/11/21 MDRO Source:: MRSA HEEL Additional Past Surgical History / Comment(s): BKA right leg Past Anesthesia/Blood Transfusion Reactions: No Reported Reaction Past Psychological History: No Psychological Hx Reported Smoking Status: Current every day smoker Past Alcohol Use History: None Reported Past Drug Use History: None Reported Medications and Allergies Home Medications Medication Instructions Recorded Confirmed Type Carvedilol [Coreg] 12.5 mg PO BID-W/MEALS 11/09/21 11/09/21 History Insulin Glargine,Hum.rec.anlog 40 unit SQ HS 11/09/21 11/09/21 History [Basaglar Kwikpen U-100] Insulin Lispro [humaLOG Kwikpen] 15 units SQ AC-TID 11/09/21 11/09/21 History Ketoconazole 2% Shampoo [Nizoral] 1 applic TOPICAL DIRECTED 11/09/21 11/09/21 History Ticagrelor [Brilinta] 90 mg PO BID 11/09/21 11/09/21 History amLODIPine [Norvasc] 10 mg PO DAILY 11/09/21 11/09/21 History levETIRAcetam [Keppra] 1,000 mg PO BID 11/09/21 11/09/21 History Allergies Allergy/AdvReac Type Severity Reaction Status Date / Time No Known Allergies Allergy Verified 11/09/21 17:03 Surgical - Exam Vital Signs Temp Pulse Resp BP Pulse Ox 98.4 F 92 18 147/82 96 11/09/21 15:58 11/09/21 15:58 11/09/21 15:58 11/09/21 15:58 11/09/21 15:58 - General well developed, well nourished, no distress - Respiratory normal respiratory effort - Abdomen Abdomen: soft, non tender, no guarding, no rigid, no rebound - Genitourinary Moderate penile edema is noted. The urethral meatus appears normal. The testes are palpably normal. The scrotal wall is considerably thickened due to edema. - Psychiatric oriented to time, oriented to person, oriented to place, speech is normal, memory intact Results - Labs 11/17/21 07:23 11/17/21 07:23 Abnormal Lab Results - Last 24 Hours (Table) 11/17/21 11/17/21 11/17/21 Range/Units 12:32 16:48 20:41 POC Glucose (mg/dL) 170 H 208 H 259 H (75-99) mg/dL 11/18/21 Range/Units 07:30 POC Glucose (mg/dL) 223 H (75-99) mg/dL Microbiology - Last 24 Hours (Table) 11/13/21 12:15 Anaerobic Culture - Final Foot - Right Assessment and Plan (1) Scrotal edema Current Visit: Yes Status: Acute Code(s): N50.89 - OTHER SPECIFIED DISORDERS OF THE MALE GENITAL ORGANS SNOMED Code(s): 27741594 Plan: Scrotal ultrasound shows small left epididymal cysts, bilateral small hydroceles, and significant scrotal edema. Examination is consistent with this, and he is also noted to have significant right lower extremity edema. I reassured him that there is no evidence of intrascrotal pathology, and that the edema should resolve with diuretic therapy. He questioned whether drainage could be performed and I explained that this is not feasible. Please notify us if we can be of any further assistance. Time with Patient: Less than 30
[2021-11-19] MEDS: MORPHINE SULFATE 2 MG/ML SYRINGE IVP PRN ×7 (01:36→23:10)
[2021-11-19] MEDS: HEPARIN SODIUM,PORCINE/PF 5,000 UNIT/0.5 ML SYRINGE SQ SCH ×4 (01:40→23:10)
[2021-11-19] MEDS: oxyCODONE-APAP 10-325MG 1 EACH TAB PO PRN ×4 (05:11→21:54)
[2021-11-19 06:52] LABS: HCT 30.9 % (39.0-53.0); HGB 9.4 gm/dL (13.0-17.5); Hypochromasia Moderate; MCHC 30.3 g/dL (31.0-37.0); MCV 92.4 fL (80.0-100.0); Mean Platelet Volume 8.5; Platelet Count 221 k/uL (150-450); RBC 3.35 m/uL (4.30-5.90); RDW 15.2 % (11.5-15.5)
[2021-11-19 07:06] LABS: Glucose,Whole Blood 208 mg/dL (75-99)
[2021-11-19 07:12] LABS: African American GFR (CKD) 38 (>60 ml/min/1.73 sqM); Anion Gap 8 mmol/L; Blood Urea Nitrogen 27 mg/dL (9-20); Calcium 8.1 mg/dL (8.4-10.2); Carbon Dioxide 25 mmol/L (22-30); Chloride 109 mmol/L (98-107); Glucose 192 mg/dL (74-99); Magnesium 2.2 mg/dL (1.6-2.3); Non-African American GFR(CKD) 33 (>60 ml/min/1.73 sqM); Potassium 4.7 mmol/L (3.5-5.1); Sodium 142 mmol/L (137-145)
[2021-11-19] MEDS: carvediloL 12.5 MG TAB PO SCH ×2 (07:43→17:47)
[2021-11-19] MEDS: hydrALAZINE HCL 25 MG TAB PO SCH ×3 (07:44→23:10)
[2021-11-19] MEDS: amLODIPine 10 MG TAB PO SCH (07:44)
[2021-11-19] MEDS: levETIRAcetam 500 MG TAB PO SCH ×2 (07:44→20:34)
[2021-11-19] MEDS: BUMETANIDE 1 MG TAB PO SCH (07:45)
[2021-11-19] MEDS: INSULIN ASPART (NovoLOG) 100 UNIT/ML VIAL SQ SCH ×4 (07:45→20:34)
[2021-11-19] MEDS: TICAGRELOR 90 MG TAB PO SCH ×2 (07:45→20:34)
[2021-11-19] MEDS: GABAPENTIN 400 MG CAP PO SCH ×3 (07:45→21:54)
[2021-11-19] MEDS: SODIUM BICARBONATE TAB 650 MG TAB PO SCH (07:45)
[2021-11-19] MEDS: AMPICILLIN-SULBACTAM 3 GM in SODIUM CHLORIDE 0.9% 100 ML IVPB SCH ×3 (07:46→23:09)
[2021-11-19 11:12] LABS: Glucose,Whole Blood 205 mg/dL (75-99)
--- NOTE | 2021-11-19 11:37 | CDI ---
Documentation Clarification Form Date: 11/19/2021 11:26:37 AM From: Shell Knight CCS, CCDS Admit Date: 11/09/2021 07:36:00 PM Patient Name: Rahul Rizvi Visit Number: [id number] Discharge Date: ATTENTION: The Clinical Documentation Specialists (CDI) and [facility] Coding Staff appreciate your assistance in clarifying documentation. Please respond to the clarification below the line at the bottom and electronically sign. The CDI & [facility] Coding staff will review the response and follow-up if needed. Please note: Queries are made part of the Legal Health Record. If you have any questions, please contact the author of this message via ITS. Dr. Elin Eric: The following is documented in the 11/18 Attending & Nephrology Progress Notes: 11/18 Attending: NAM vs CKD, suspect CKD 11/18 Nephrology: Acute Kidney Injury versus progressive CKD Additional clarification regarding the stage of CKD is requested. History/Risk Factors per the 11/09 H/P: DM II with PVD status post Left BKA, Seizure Disorder, Hypertension, Hyperlipidemia. Clinical Indicators: Presented to the ED on 11/09 via EMS with right leg wound & swelling. Wound on the lateral aspect of his right heel. Admit with Pedal Edema, Decubitus Ulcer of Foot 11/09 LAB: 11/09 BUN: 26, 11/10: 22.9, 11/15: 23, 11/19: 27 11/09 Creatinine: 1.68, 11/10: 1.7, 11/15: 2.0, 11/19: 2.12 11/09 GFR: 43. 11/10: 43.2, 11/15: 35.0, 11/19 33 Historical GFR: n/a: Patient recently moved to the area from [place]. Treatment 11/09: Blood glucose monitoring, IV Dilaudid 0.5 mg x2, IV Morphine 2 mg q4H/prn, I Na Cl 1,000 mls @ 50 mls/hr q20H, IV Vancomycin 500 mls @ 167 mls/hr x1. Please clarify the stage of the CKD, if known: [ ] CKD Stage 3 (GFR 30-59) [ ] CKD Stage 3a (GFR 45-59) [ ] CKD Stage 3b (GFR 30-44) [ ] Other, please specify [ ] Unable to determine (Template Last revised: September 2020) 11/21: Query response documented in 11/20 Nephrology Progress Note, Dr. Jara. Chronic kidney disease, unknown baseline might etiology is diabetic kidney disease. (CDS: ROBER) RAMIROD
[2021-11-19] MEDS: DAPTOmycin 500 MG in SODIUM CHLORIDE 0.9% 50 ML IVPB SCH (12:28)
--- NOTE | 2021-11-19 15:09 | P.PN ---
Subjective Patient is seen for follow-up for acute kidney injury. And volume overload. Currently maintained on oral Bumex. Serum creatinine staying at about 2.1-2 mg/dL. Patient is complaining of increased scrotal edema. Voiding fairly well. Objective - Vital Signs Vital signs: Vital Signs Temp 98.6 F 11/19/21 13:52 Pulse 92 11/19/21 13:52 Resp 19 11/19/21 13:52 BP 126/66 11/19/21 13:52 Pulse Ox 93 L 11/19/21 13:52 Intake & Output 11/18/21 11/19/21 11/19/21 18:59 06:59 18:59 Intake Total 2000 Output Total 600 600 400 Balance -600 1400 -400 Intake: Oral 2000 Output: Urine 600 600 400 Other: Voiding Method Urinal Urinal Urinal # Voids 5 # Bowel Movements 1 - Exam Awake, comfortable, not in any acute distress Examination of the heart S1 and S2 Examination lungs bilateral breath sounds are heard Abdomen is soft nontender obese Examination of lower extremities shows significant edema bilaterally. Significant Scrotal edema noted as well. - Labs CBC & Chem 7: 11/19/21 06:32 11/19/21 06:32 Labs: Abnormal Lab Results - Last 24 Hours (Table) 11/18/21 11/18/21 11/19/21 Range/Units 16:13 20:43 06:32 RBC 3.35 L (4.30-5.90) m/uL Hgb 9.4 L (13.0-17.5) gm/dL Hct 30.9 L (39.0-53.0) % MCHC 30.3 L (31.0-37.0) g/dL Chloride (98-107) mmol/L BUN (9-20) mg/dL Creatinine (0.66-1.25) mg/dL Glucose (74-99) mg/dL POC Glucose (mg/dL) 201 H 211 H (75-99) mg/dL Calcium (8.4-10.2) mg/dL 11/19/21 11/19/21 11/19/21 Range/Units 06:32 07:05 11:10 RBC (4.30-5.90) m/uL Hgb (13.0-17.5) gm/dL Hct (39.0-53.0) % MCHC (31.0-37.0) g/dL Chloride 109 H (98-107) mmol/L BUN 27 H (9-20) mg/dL Creatinine 2.12 H (0.66-1.25) mg/dL Glucose 192 H (74-99) mg/dL POC Glucose (mg/dL) 208 H 205 H (75-99) mg/dL Calcium 8.1 L (8.4-10.2) mg/dL Assessment and Plan Assessment: 1. Acute kidney injury versus progressive chronic kidney disease 2. Status post left BKA 3. Anemia of chronic disease 4. Hypertension with CK D 5. Chronic kidney disease, unknown baseline might etiology is diabetic kidney disease 6. Right foot nonhealing wound status post debridement on 11/13/2021. Being followed by vascular surgery. Wound cultures growing MRSA and Acinetobacter 7. Volume overload Plan: Change Bumex to IV Daily weights Maintain fluid restriction Repeat labs in a.m.
[2021-11-19] MEDS: BUMETANIDE 0.25 MG/ML 4 ML VIAL IVP SCH (15:53)
[2021-11-19 16:15] LABS: Glucose,Whole Blood 257 mg/dL (75-99)
[2021-11-19] MEDS: LACTATED RINGERS 1,000 ML IV SCH (16:15)
--- NOTE | 2021-11-19 17:22 | P.PN ---
Subjective Patient was examined at bedside today not complaining of any new symptomatology. He continues to require 2-3 L of nasal cannula to maintain saturations above 90%. Scrotal discomfort is slightly improving waiting on urology evaluation today. Case discussed with RN present at bedside. Objective - Vital Signs Vital signs: Vital Signs Temp 98.6 F 11/19/21 13:52 Pulse 92 11/19/21 13:52 Resp 19 11/19/21 13:52 BP 126/66 11/19/21 13:52 Pulse Ox 93 L 11/19/21 13:52 Intake & Output 11/18/21 11/19/21 11/19/21 18:59 06:59 18:59 Intake Total 2000 Output Total 600 600 400 Balance -600 1400 -400 Intake: Oral 2000 Output: Urine 600 600 400 Other: Voiding Method Urinal Urinal Urinal # Voids 5 # Bowel Movements 1 - Exam General: non toxic, no distress, appears at stated age Derm: warm, dry, abdoulaye appearance to right leg with chronic venous stasis changes and yellow plaquing, decreased edema and dressing in place over ulcer Head: atraumatic, normocephalic, symmetric Eyes: EOMI, no lid lag, anicteric sclera Mouth: no lip lesion, mucus membranes moist Cardiovascular: S1S2 tachy, no murmur, positive posterior tibial pulse bilateral, Lungs: Coarse breath sounds bilateral, no rhonchi, no rales , no accessory muscle use Ext: no gross muscle atrophy, 1+ edema right lower extremity, BKA left - scrotal edema Neuro: CN II-XI grossly intact, no focal neuro deficits Psych: Alert, oriented, appropriate affect - Labs CBC & Chem 7: 11/19/21 06:32 11/19/21 06:32 Labs: Abnormal Lab Results - Last 24 Hours (Table) 11/18/21 11/19/21 11/19/21 Range/Units 20:43 06:32 06:32 RBC 3.35 L (4.30-5.90) m/uL Hgb 9.4 L (13.0-17.5) gm/dL Hct 30.9 L (39.0-53.0) % MCHC 30.3 L (31.0-37.0) g/dL Chloride 109 H (98-107) mmol/L BUN 27 H (9-20) mg/dL Creatinine 2.12 H (0.66-1.25) mg/dL Glucose 192 H (74-99) mg/dL POC Glucose (mg/dL) 211 H (75-99) mg/dL Calcium 8.1 L (8.4-10.2) mg/dL 11/19/21 11/19/21 11/19/21 Range/Units 07:05 11:10 16:13 RBC (4.30-5.90) m/uL Hgb (13.0-17.5) gm/dL Hct (39.0-53.0) % MCHC (31.0-37.0) g/dL Chloride (98-107) mmol/L BUN (9-20) mg/dL Creatinine (0.66-1.25) mg/dL Glucose (74-99) mg/dL POC Glucose (mg/dL) 208 H 205 H 257 H (75-99) mg/dL Calcium (8.4-10.2) mg/dL Assessment and Plan Assessment: Right heel infected wound with osteomyelitis PAD Prior BKA - s/p I and D - vascular recs - ID recs: PICC line 6 weeks of IV abx - dapto and unasyn - Wound care recommendations appreciated. He'll follow up in wound care center. - percocet for pain Scrotal edema - elevation - scrotal ultrasound with edema, 1 mm cyst and small hydrocele NAM vs CKD, suspect CKD - cr stable - nephro recs - avoid nephrotoxic agents - follow Cr Iron deficiency anemia - s/p IV iron X 3 doses - follow CBC Diabetes mellitus type 2 with hyperglycemia, neuropathy - A1c 8.9 - levemir increased - SSI CVA - statin, Brillenta Tobacco abuse - cessation Dyslipidemia - statin Awaiting auth for rehab.
[2021-11-19] MEDS: BENZOCAINE/MENTHOL LOZENG 1 EACH LOZENGE MUCOUS MEM PRN ×2 (17:55→23:55)
[2021-11-19] MEDS: IPRATROPIUM-ALBUTEROL 3 ML NEB INHALATION PRN (18:55)
[2021-11-19 20:17] LABS: Glucose,Whole Blood 233 mg/dL (75-99)
[2021-11-19] MEDS: INSULIN DETEMIR (LEVEMIR) 100 UNIT/ML SYR SQ SCH (20:35)
--- NOTE | 2021-11-19 21:08 | P.PN ---
Subjective Progress Note Date: 11/19/21 Principal diagnosis: Right heel diabetic wound infection Patient is a 61 year old male with a past medical history significant for left omjvw-[id number]-[id number] amputation in this patient with underlying diabetes presenting to the hospital with a nonhealing wound to the right heel and concern for secondary infection, patient did have MRI completed on 11/10/2021 with no evidence of osteomyelitis. The patient is status post surgical debridement of his right heel wound completed on 11/13/2021 with evidence of extension of the wound down to the wound On today's evaluation that is 11/19/2021, the patient denies any fever or any chills, the patient pain to the right heel area is currently controlled , the patient denies chest pain shortness of breath cough, the patient denies nausea no vomiting no abdominal pain no diarrhea Objective - Vital Signs Vital signs: Vital Signs Temp 97.9 F 11/19/21 07:44 Pulse 86 11/19/21 08:00 Resp 19 11/19/21 08:00 BP 129/69 11/19/21 07:44 Pulse Ox 94 L 11/19/21 07:44 Intake & Output 11/18/21 11/19/21 11/19/21 18:59 06:59 18:59 Intake Total 2000 Output Total 600 600 Balance -600 1400 Intake: Oral 2000 Output: Urine 600 600 Other: Voiding Method Urinal Urinal Urinal # Voids 5 - Exam GENERAL DESCRIPTION: Middle-aged male lying in bed in no distress RESPIRATORY SYSTEM: Unlabored breathing , decreased breath sounds at bases HEART: S1 S2 regular rate and rhythm , ABDOMEN: Soft , no tenderness EXTREMITIES: Right lateral heel wound did have some slough tissue some surrounding redness no foul-smelling drainage - Labs CBC & Chem 7: 11/19/21 06:32 11/19/21 06:32 Labs: Abnormal Lab Results - Last 24 Hours (Table) 11/18/21 11/18/21 11/19/21 Range/Units 16:13 20:43 06:32 RBC 3.35 L (4.30-5.90) m/uL Hgb 9.4 L (13.0-17.5) gm/dL Hct 30.9 L (39.0-53.0) % MCHC 30.3 L (31.0-37.0) g/dL Chloride (98-107) mmol/L BUN (9-20) mg/dL Creatinine (0.66-1.25) mg/dL Glucose (74-99) mg/dL POC Glucose (mg/dL) 201 H 211 H (75-99) mg/dL Calcium (8.4-10.2) mg/dL 11/19/21 11/19/21 11/19/21 Range/Units 06:32 07:05 11:10 RBC (4.30-5.90) m/uL Hgb (13.0-17.5) gm/dL Hct (39.0-53.0) % MCHC (31.0-37.0) g/dL Chloride 109 H (98-107) mmol/L BUN 27 H (9-20) mg/dL Creatinine 2.12 H (0.66-1.25) mg/dL Glucose 192 H (74-99) mg/dL POC Glucose (mg/dL) 208 H 205 H (75-99) mg/dL Calcium 8.1 L (8.4-10.2) mg/dL Assessment and Plan (1) Decubitus ulcer of foot Current Visit: Yes Status: Acute Code(s): L89.899 - PRESSURE ULCER OF OTHER SITE, UNSPECIFIED STAGE SNOMED Code(s): 1873930187 Plan: 1patient with right lateral heel/foot area diabetic foot ulcer started with debridement of the callus by his wall covering installer few weeks 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 2 the patient did have surgical debridement with evidence of wound extended down to the board concerning for acute bacterial Osteomyelitis and deep culture has been finalized as MRSA along with Acinetobacter 3patient is currently being treated with Unasyn and daptomycin, duration of the antibiotic is total of 6 weeks the patient currently waiting for placement 4-local wound care to continue with minerva followed by moist dressing to be changed daily Time with Patient: Less than 30
[2021-11-20] MEDS: MORPHINE SULFATE 2 MG/ML SYRINGE IVP PRN ×4 (03:03→16:05)
[2021-11-20] MEDS: LACTATED RINGERS 1,000 ML IV SCH (04:15)
[2021-11-20] MEDS: oxyCODONE-APAP 10-325MG 1 EACH TAB PO PRN ×3 (04:45→17:40)
[2021-11-20 06:48] LABS: Glucose,Whole Blood 227 mg/dL (75-99)
[2021-11-20] MEDS: AMPICILLIN-SULBACTAM 3 GM in SODIUM CHLORIDE 0.9% 100 ML IVPB SCH ×2 (08:18→16:06)
[2021-11-20] MEDS: HEPARIN SODIUM,PORCINE/PF 5,000 UNIT/0.5 ML SYRINGE SQ SCH ×2 (08:18→16:06)
[2021-11-20] MEDS: BUMETANIDE 0.25 MG/ML 4 ML VIAL IVP SCH ×2 (08:18→16:05)
[2021-11-20] MEDS: TICAGRELOR 90 MG TAB PO SCH ×2 (08:19→21:34)
[2021-11-20] MEDS: INSULIN ASPART (NovoLOG) 100 UNIT/ML VIAL SQ SCH ×4 (08:19→21:30)
[2021-11-20] MEDS: amLODIPine 10 MG TAB PO SCH (08:20)
[2021-11-20] MEDS: levETIRAcetam 500 MG TAB PO SCH ×2 (08:20→21:32)
[2021-11-20] MEDS: carvediloL 12.5 MG TAB PO SCH ×2 (08:20→16:06)
[2021-11-20] MEDS: GABAPENTIN 400 MG CAP PO SCH ×3 (08:20→21:34)
[2021-11-20] MEDS: SODIUM BICARBONATE TAB 650 MG TAB PO SCH (08:20)
[2021-11-20] MEDS: hydrALAZINE HCL 25 MG TAB PO SCH ×3 (08:20→21:34)
--- NOTE | 2021-11-20 09:01 | XR ---
EXAMINATION TYPE: XR chest 1V portable DATE OF EXAM: 11/20/2021 COMPARISON: 11/18/2021 INDICATION: Short of breath TECHNIQUE: Single frontal view of the chest is obtained. FINDINGS: The heart size is normal. The pulmonary vasculature is prominent. Diffuse increased lung markings are present. Correlate for volume overload. IMPRESSION: 1. Diffuse increased lung markings. Correlate for volume overload. Atelectasis and pneumonia could be considered. Continued follow-up is recommended.
--- NOTE | 2021-11-20 11:10 | P.PN ---
Subjective Patient was examined at bedside today not complaining of any new symptomatology. He is requesting a nebulizer machine on discharge I will coordinate with case management. Objective - Vital Signs Vital signs: Vital Signs Temp 98.3 F 11/20/21 07:54 Pulse 86 11/20/21 07:54 Resp 19 11/20/21 07:54 BP 130/62 11/20/21 07:54 Pulse Ox 94 L 11/20/21 07:54 Intake & Output 11/19/21 11/20/21 11/20/21 18:59 06:59 18:59 Intake Total 1080 474 Output Total 400 Balance 680 474 Intake: Oral 1080 474 Output: Urine 400 Other: Voiding Method Urinal Urinal Urinal # Voids 4 # Bowel Movements 1 1 - Exam General: non toxic, no distress, appears at stated age Derm: warm, dry, abdoulaye appearance to right leg with chronic venous stasis changes and yellow plaquing, decreased edema and dressing in place over ulcer Head: atraumatic, normocephalic, symmetric Eyes: EOMI, no lid lag, anicteric sclera Mouth: no lip lesion, mucus membranes moist Cardiovascular: S1S2 tachy, no murmur, positive posterior tibial pulse bilateral, Lungs: Coarse breath sounds bilateral, no rhonchi, no rales , no accessory muscle use Ext: no gross muscle atrophy, 1+ edema right lower extremity, BKA left - scrotal edema Neuro: CN II-XI grossly intact, no focal neuro deficits Psych: Alert, oriented, appropriate affect - Labs CBC & Chem 7: 11/19/21 06:32 11/19/21 06:32 Labs: Abnormal Lab Results - Last 24 Hours (Table) 11/19/21 11/19/21 11/19/21 Range/Units 11:10 16:13 20:16 POC Glucose (mg/dL) 205 H 257 H 233 H (75-99) mg/dL 11/20/21 Range/Units 06:46 POC Glucose (mg/dL) 227 H (75-99) mg/dL Assessment and Plan Assessment: Right heel infected wound with osteomyelitis PAD Prior BKA - s/p I and D - vascular recs - ID recs: PICC line 6 weeks of IV abx - dapto and unasyn - Wound care recommendations appreciated. He'll follow up in wound care center. - percocet for pain Scrotal edema - elevation - scrotal ultrasound with edema, 1 mm cyst and small hydrocele NAM vs CKD, suspect CKD - cr stable - nephro recs - avoid nephrotoxic agents -Started on IV Bumex 1 mg twice a day. Iron deficiency anemia - s/p IV iron X 3 doses - follow CBC Diabetes mellitus type 2 with hyperglycemia, neuropathy - A1c 8.9 - Change Levemir to 14 units twice a day. She'll let short-acting if necessary. - SSI CVA - statin, Brillenta Tobacco abuse - cessation Dyslipidemia - statin Awaiting auth for rehab.
[2021-11-20 11:14] LABS: Glucose,Whole Blood 156 mg/dL (75-99)
[2021-11-20] MEDS: DAPTOmycin 500 MG in SODIUM CHLORIDE 0.9% 50 ML IVPB SCH (11:28)
[2021-11-20] MEDS: IPRATROPIUM-ALBUTEROL 3 ML NEB INHALATION PRN ×3 (11:50→20:20)
[2021-11-20 12:07] LABS: African American GFR (CKD) 32 (>60 ml/min/1.73 sqM); Anion Gap 7 mmol/L; Blood Urea Nitrogen 31 mg/dL (9-20); Calcium 8.1 mg/dL (8.4-10.2); Carbon Dioxide 26 mmol/L (22-30); Chloride 108 mmol/L (98-107); Glucose 140 mg/dL (74-99); Non-African American GFR(CKD) 28 (>60 ml/min/1.73 sqM); Potassium 5.2 mmol/L (3.5-5.1); Sodium 141 mmol/L (137-145)
--- NOTE | 2021-11-20 12:51 | P.PN ---
Subjective Patient is seen for follow-up for acute kidney injury. And volume overload. Currently maintained on oral Bumex. Serum creatinine staying at about 2.1-2 mg/dL. Bumex switch to IV yesterday due to increased scrotal edema. Patient states that the swelling is slightly improved. 24 hour urine output documented at 1200 mL. Objective - Vital Signs Vital signs: Vital Signs Temp 98.3 F 11/20/21 07:54 Pulse 88 11/20/21 11:59 Resp 19 11/20/21 07:54 BP 130/62 11/20/21 07:54 Pulse Ox 94 L 11/20/21 07:54 Intake & Output 11/19/21 11/20/21 11/20/21 18:59 06:59 18:59 Intake Total 1080 474 Output Total 400 Balance 680 474 Intake: Oral 1080 474 Output: Urine 400 Other: Voiding Method Urinal Urinal Urinal # Voids 4 # Bowel Movements 1 1 - Exam Awake, comfortable, not in any acute distress Examination of the heart S1 and S2 Examination lungs bilateral breath sounds are heard Abdomen is soft nontender obese Examination of lower extremities shows significant edema bilaterally. Significant Scrotal edema noted as well. 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 - Labs CBC & Chem 7: 11/19/21 06:32 11/20/21 11:30 Labs: Abnormal Lab Results - Last 24 Hours (Table) 11/19/21 11/19/21 11/20/21 Range/Units 16:13 20:16 06:46 Potassium (3.5-5.1) mmol/L Chloride (98-107) mmol/L BUN (9-20) mg/dL Creatinine (0.66-1.25) mg/dL Glucose (74-99) mg/dL POC Glucose (mg/dL) 257 H 233 H 227 H (75-99) mg/dL Calcium (8.4-10.2) mg/dL 11/20/21 11/20/21 Range/Units 11:13 11:30 Potassium 5.2 H (3.5-5.1) mmol/L Chloride 108 H (98-107) mmol/L BUN 31 H (9-20) mg/dL Creatinine 2.44 H (0.66-1.25) mg/dL Glucose 140 H (74-99) mg/dL POC Glucose (mg/dL) 156 H (75-99) mg/dL Calcium 8.1 L (8.4-10.2) mg/dL Assessment and Plan Assessment: 1. Acute kidney injury versus progressive chronic kidney disease 2. Status post left BKA 3. Anemia of chronic disease 4. Hypertension with CK D 5. Chronic kidney disease, unknown baseline might etiology is diabetic kidney disease 6. Right foot nonhealing wound status post debridement on 11/13/2021. Being followed by vascular surgery. Wound cultures growing MRSA and Acinetobacter 7. Volume overload 8. Rule out urine retention as potassium is mildly elevated and serum creatinine is a bit higher today. Plan: Check post void bladder scan. Continue with IV Bumex for 1 more day Repeat labs in a.m.
[2021-11-20 16:05] LABS: Glucose,Whole Blood 238 mg/dL (75-99)
[2021-11-20] MEDS: BENZOCAINE/MENTHOL LOZENG 1 EACH LOZENGE MUCOUS MEM PRN (18:12)
--- NOTE | 2021-11-20 21:00 | P.PN ---
Subjective Progress Note Date: 11/20/21 Principal diagnosis: Right heel diabetic wound infection Patient is a 61 year old male with a past medical history significant for left [id number] amputation in this patient with underlying diabetes presenting to the hospital with a nonhealing wound to the right heel and concern for secondary infection, patient did have MRI completed on 11/10/2021 with no evidence of osteomyelitis. The patient is status post surgical debridement of his right heel wound completed on 11/13/2021 with evidence of extension of the wound down to the wound On today's evaluation that is 11/20/2021, the patient remains to be afebrile, the patient pain to the right heel area is currently controlled , the patient denies chest pain shortness of breath or cough, the patient denies nausea no vomiting no abdominal pain no diarrhea, currently waiting for placement Objective - Vital Signs Vital signs: Vital Signs Temp 98.3 F 11/20/21 07:54 Pulse 88 11/20/21 11:59 Resp 19 11/20/21 07:54 BP 130/62 11/20/21 07:54 Pulse Ox 94 L 11/20/21 07:54 Intake & Output 11/19/21 11/20/21 11/20/21 18:59 06:59 18:59 Intake Total 1080 474 Output Total 400 Balance 680 474 Intake: Oral 1080 474 Output: Urine 400 Other: Voiding Method Urinal Urinal Urinal # Voids 4 # Bowel Movements 1 1 - Exam GENERAL DESCRIPTION: Middle-aged male lying in bed in no distress RESPIRATORY SYSTEM: Unlabored breathing , decreased breath sounds at bases HEART: S1 S2 regular rate and rhythm , ABDOMEN: Soft , no tenderness EXTREMITIES: Right lateral heel wound did have some slough tissue some surrounding redness no foul-smelling drainage - Labs CBC & Chem 7: 11/19/21 06:32 11/20/21 11:30 Labs: Abnormal Lab Results - Last 24 Hours (Table) 11/19/21 11/19/21 11/20/21 Range/Units 16:13 20:16 06:46 Potassium (3.5-5.1) mmol/L Chloride (98-107) mmol/L BUN (9-20) mg/dL Creatinine (0.66-1.25) mg/dL Glucose (74-99) mg/dL POC Glucose (mg/dL) 257 H 233 H 227 H (75-99) mg/dL Calcium (8.4-10.2) mg/dL 11/20/21 11/20/21 Range/Units 11:13 11:30 Potassium 5.2 H (3.5-5.1) mmol/L Chloride 108 H (98-107) mmol/L BUN 31 H (9-20) mg/dL Creatinine 2.44 H (0.66-1.25) mg/dL Glucose 140 H (74-99) mg/dL POC Glucose (mg/dL) 156 H (75-99) mg/dL Calcium 8.1 L (8.4-10.2) mg/dL Assessment and Plan (1) Decubitus ulcer of foot Current Visit: Yes Status: Acute Code(s): L89.899 - PRESSURE ULCER OF OTHER SITE, UNSPECIFIED STAGE SNOMED Code(s): 3605659564 Plan: 1patient with right lateral heel/foot area diabetic foot ulcer started with 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 2 the patient did have surgical debridement with evidence of wound extended down to the board concerning for acute bacterial Osteomyelitis and deep culture has been finalized as MRSA along with Acinetobacter 3patient to continue with Unasyn and daptomycin, duration of the antibiotic is total of 6 weeks with weekly monitoring of inflammation markers 4-local wound care to continue with patahoney followed by moist dressing to be changed daily Time with Patient: Less than 30
[2021-11-20 21:12] LABS: Glucose,Whole Blood 148 mg/dL (75-99)
[2021-11-20] MEDS: INSULIN DETEMIR (LEVEMIR) 100 UNIT/ML SYR SQ SCH (21:31)
[2021-11-21] MEDS: HEPARIN SODIUM,PORCINE/PF 5,000 UNIT/0.5 ML SYRINGE SQ SCH ×3 (00:42→17:46)
[2021-11-21] MEDS: AMPICILLIN-SULBACTAM 3 GM in SODIUM CHLORIDE 0.9% 100 ML IVPB SCH ×3 (00:42→17:52)
[2021-11-21] MEDS: MORPHINE SULFATE 2 MG/ML SYRINGE IVP PRN ×2 (02:32→14:34)
[2021-11-21] MEDS: oxyCODONE-APAP 10-325MG 1 EACH TAB PO PRN ×2 (04:47→14:58)
[2021-11-21 07:02] LABS: Glucose,Whole Blood 177 mg/dL (75-99)
[2021-11-21] MEDS: LACTATED RINGERS 1,000 ML IV SCH (07:46)
[2021-11-21] MEDS: INSULIN DETEMIR (LEVEMIR) 100 UNIT/ML SYR SQ SCH ×2 (07:46→22:29)
[2021-11-21] MEDS: INSULIN ASPART (NovoLOG) 100 UNIT/ML VIAL SQ SCH ×4 (07:47→22:28)
[2021-11-21] MEDS: carvediloL 12.5 MG TAB PO SCH ×2 (07:47→17:48)
[2021-11-21] MEDS: amLODIPine 10 MG TAB PO SCH (07:59)
[2021-11-21] MEDS: hydrALAZINE HCL 25 MG TAB PO SCH ×3 (07:59→22:30)
[2021-11-21] MEDS: SODIUM BICARBONATE TAB 650 MG TAB PO SCH (07:59)
[2021-11-21] MEDS: BUMETANIDE 0.25 MG/ML 4 ML VIAL IVP SCH ×2 (07:59→18:00)
[2021-11-21] MEDS: GABAPENTIN 400 MG CAP PO SCH ×3 (08:00→22:30)
[2021-11-21] MEDS: levETIRAcetam 500 MG TAB PO SCH ×2 (08:00→22:29)
[2021-11-21] MEDS: IPRATROPIUM-ALBUTEROL 3 ML NEB INHALATION PRN (08:16)
[2021-11-21] MEDS: TICAGRELOR 90 MG TAB PO SCH ×2 (08:58→22:30)
[2021-11-21 09:31] LABS: Basophils % (A) 0 %; Eosinophils # (A) 0.2 k/uL (0-0.7); Eosinophils % (A) 3 %; HCT 28.6 % (39.0-53.0); HGB 8.9 gm/dL (13.0-17.5); Hypochromasia Moderate; Lymphocytes % (A) 13 %; MCH 28.9 pg (25.0-35.0); MCV 93.3 fL (80.0-100.0); Mean Platelet Volume 7.4; Monocytes # (A) 0.6 k/uL (0-1.0); Monocytes % (A) 8 %; Neutrophils # (A) 5.4 k/uL (1.3-7.7); Neutrophils % (A) 74 %; Platelet Count 213 k/uL (150-450); RBC 3.06 m/uL (4.30-5.90); WBC 7.4 k/uL (3.8-10.6)
[2021-11-21 09:47] LABS: African American GFR (CKD) 28 (>60 ml/min/1.73 sqM); Blood Urea Nitrogen 32 mg/dL (9-20); Calcium 8.1 mg/dL (8.4-10.2); Carbon Dioxide 29 mmol/L (22-30); Glucose 143 mg/dL (74-99); Non-African American GFR(CKD) 25 (>60 ml/min/1.73 sqM); Sodium 141 mmol/L (137-145)
[2021-11-21 10:12] LABS: Anion Gap 5 mmol/L; Chloride 107 mmol/L (98-107); Potassium 4.9 mmol/L (3.5-5.1)
--- NOTE | 2021-11-21 10:51 | P.PN ---
Subjective Patient was examined at bedside today not complaining of any new symptomatology. Denies any pain. Any placement. Case discussed with RN present at bedside. Objective - Vital Signs Vital signs: Vital Signs Temp 99.3 F 11/21/21 08:00 Pulse 89 11/21/21 08:00 Resp 16 11/21/21 08:00 BP 137/69 11/21/21 08:00 Pulse Ox 95 11/21/21 08:00 Intake & Output 11/20/21 11/21/21 11/21/21 18:59 06:59 18:59 Intake Total 750 Output Total 1000 600 Balance -250 -600 Intake: Intake, IV Titration 150 Amount Ampicillin-Sulbactam 3 gm 100 In Sodium Chloride 0.9% 100 ml @ 200 mls/hr IVPB Q8HR [facility] Rx#:[id number] DAPTOmycin 500 mg In 50 Sodium Chloride 0.9% 50 ml @ 100 mls/hr IVPB Q24H [facility] Rx#:[id number] Oral 600 Output: Urine 1000 600 Straight 1000 Other: Voiding Method Urinal Urinal # Bowel Movements 1 - Exam General: non toxic, no distress, appears at stated age Derm: warm, dry, abdoulaye appearance to right leg with chronic venous stasis changes and yellow plaquing, decreased edema and dressing in place over ulcer Head: atraumatic, normocephalic, symmetric Eyes: EOMI, no lid lag, anicteric sclera Mouth: no lip lesion, mucus membranes moist Cardiovascular: S1S2 tachy, no murmur, positive posterior tibial pulse bilateral, Lungs: Coarse breath sounds bilateral, no rhonchi, no rales , no accessory muscle use Ext: no gross muscle atrophy, 1+ edema right lower extremity, BKA left - scrotal edema Neuro: CN II-XI grossly intact, no focal neuro deficits Psych: Alert, oriented, appropriate affect - Labs CBC & Chem 7: 11/21/21 08:56 11/21/21 08:56 Labs: Abnormal Lab Results - Last 24 Hours (Table) 11/20/21 11/20/21 11/20/21 Range/Units 11:13 11:30 16:04 RBC (4.30-5.90) m/uL Hgb (13.0-17.5) gm/dL Hct (39.0-53.0) % Potassium 5.2 H (3.5-5.1) mmol/L Chloride 108 H (98-107) mmol/L BUN 31 H (9-20) mg/dL Creatinine 2.44 H (0.66-1.25) mg/dL Glucose 140 H (74-99) mg/dL POC Glucose (mg/dL) 156 H 238 H (75-99) mg/dL Calcium 8.1 L (8.4-10.2) mg/dL 11/20/21 11/21/21 11/21/21 Range/Units 21:05 07:01 08:56 RBC 3.06 L (4.30-5.90) m/uL Hgb 8.9 L (13.0-17.5) gm/dL Hct 28.6 L (39.0-53.0) % Potassium (3.5-5.1) mmol/L Chloride (98-107) mmol/L BUN (9-20) mg/dL Creatinine (0.66-1.25) mg/dL Glucose (74-99) mg/dL POC Glucose (mg/dL) 148 H 177 H (75-99) mg/dL Calcium (8.4-10.2) mg/dL 11/21/21 Range/Units 08:56 RBC (4.30-5.90) m/uL Hgb (13.0-17.5) gm/dL Hct (39.0-53.0) % Potassium (3.5-5.1) mmol/L Chloride (98-107) mmol/L BUN 32 H (9-20) mg/dL Creatinine 2.69 H (0.66-1.25) mg/dL Glucose 143 H (74-99) mg/dL POC Glucose (mg/dL) (75-99) mg/dL Calcium 8.1 L (8.4-10.2) mg/dL Assessment and Plan Assessment: Assessment/plan Right heel infected wound with osteomyelitis PAD Prior BKA -s/p I and D -vascular recs -ID recs: PICC line 6 weeks of IV abx -dapto and unasyn -Wound care recommendations appreciated. He'll follow up in wound care center. -percocet for pain Scrotal edema -elevation -scrotal ultrasound with edema, 1 mm cyst and small hydrocele. Patient was trae luated by urology no further recommendations from their service etc. for conservative management. NAM vs CKD, suspect CKD -cr stable -nephro recs -avoid nephrotoxic agents -Started on IV Bumex 1 mg twice a day. Iron deficiency anemia -s/p IV iron X 3 doses -follow CBC Diabetes mellitus type 2 with hyperglycemia, neuropathy -A1c 8.9 -Change Levemir to 14 units twice a day. She'll let short-acting if necessary. -SSI CVA -statin, Brillenta Tobacco abuse -cessation Dyslipidemia -statin Acute hypoxic respiratory distress currently on 5 L -Patient does not use oxygen at home we'll obtain chest x-ray. Needs to be evaluated for home oxygen requirements prior to discharge. Disposition anticipating authorization for rehab. Today with IV antibiotic course as per ID.
[2021-11-21 11:41] LABS: Glucose,Whole Blood 125 mg/dL (75-99)
[2021-11-21] MEDS: DAPTOmycin 500 MG in SODIUM CHLORIDE 0.9% 50 ML IVPB SCH (12:44)
--- NOTE | 2021-11-21 14:10 | P.PN ---
Subjective Patient is seen for follow-up for acute kidney injury. And volume overload. Currently maintained on oral Bumex. Serum creatinine staying at about 2.1-2 mg/dL. Bumex switch to IV due to increased scrotal edema. Patient states that the swelling is slightly improved. Patient continues to have urine retention with straight cath noted at 1000 mL. Objective - Vital Signs Vital signs: Vital Signs Temp 99.3 F 11/21/21 08:00 Pulse 89 11/21/21 08:00 Resp 16 11/21/21 08:00 BP 137/69 11/21/21 08:00 Pulse Ox 95 11/21/21 08:00 Intake & Output 11/20/21 11/21/21 11/21/21 18:59 06:59 18:59 Intake Total 750 Output Total 1000 600 Balance -250 -600 Intake: Intake, IV Titration 150 Amount Ampicillin-Sulbactam 3 gm 100 In Sodium Chloride 0.9% 100 ml @ 200 mls/hr IVPB Q8HR [facility] Rx#:[id number] DAPTOmycin 500 mg In 50 Sodium Chloride 0.9% 50 ml @ 100 mls/hr IVPB Q24H [facility] Rx#:[id number] Oral 600 Output: Urine 1000 600 Straight 1000 Other: Voiding Method Urinal Urinal # Bowel Movements 1 - Exam Awake, comfortable, not in any acute distress Examination of the heart S1 and S2 Examination lungs bilateral breath sounds are heard Abdomen is soft nontender obese Examination of lower extremities shows significant edema bilaterally. Significant Scrotal edema noted as well. 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 - Labs CBC & Chem 7: 11/21/21 08:56 11/21/21 08:56 Labs: Abnormal Lab Results - Last 24 Hours (Table) 11/20/21 11/20/21 11/21/21 Range/Units 16:04 21:05 07:01 RBC (4.30-5.90) m/uL Hgb (13.0-17.5) gm/dL Hct (39.0-53.0) % BUN (9-20) mg/dL Creatinine (0.66-1.25) mg/dL Glucose (74-99) mg/dL POC Glucose (mg/dL) 238 H 148 H 177 H (75-99) mg/dL Calcium (8.4-10.2) mg/dL 11/21/21 11/21/2111/21/22 Range/Units 08:56 08:56 11:40 RBC 3.06 L (4.30-5.90) m/uL Hgb 8.9 L (13.0-17.5) gm/dL Hct 28.6 L (39.0-53.0) % BUN 32 H (9-20) mg/dL Creatinine 2.69 H (0.66-1.25) mg/dL Glucose 143 H (74-99) mg/dL POC Glucose (mg/dL) 125 H (75-99) mg/dL Calcium 8.1 L (8.4-10.2) mg/dL Assessment and Plan Assessment: 1. Acute kidney injury ATN and secondary to urine retention, 2. Status post left BKA 3. Anemia of chronic disease 4. Hypertension with CK D 5. Chronic kidney disease, unknown baseline might etiology is diabetic kidney disease 6. Right foot nonhealing wound status post debridement on 11/13/2021. Being followed by vascular surgery. Wound cultures growing MRSA and Acinetobacter 7. Volume overload 8. Urine retention with straight cath showing 1000 mL of urine this morning. Poole catheter will be placed Plan: Place Poole catheter Repeat labs in a.m. Add Flomax If renal function does not improve with Poole catheter placement I will decrease the Bumex
--- NOTE | 2021-11-21 16:28 | XR ---
EXAMINATION TYPE: XR chest 1V portable DATE OF EXAM: 11/21/2021 COMPARISON: Chest x-ray 11/20/2021 HISTORY: Shortness of breath, difficulty breathing TECHNIQUE: Single frontal view of the chest is obtained. FINDINGS: Interstitial changes are again noted within the lungs. Right-sided PICC line is again note d. There is no evident pneumothorax or pleural effusion. Cardiac mediastinal silhouette is stable. [place] ewa are unchanged. IMPRESSION: Findings are similar to prior exam. Correlate for interstitial pneumonia, edema
[2021-11-21 16:49] LABS: Glucose,Whole Blood 159 mg/dL (75-99)
[2021-11-21 20:19] LABS: Glucose,Whole Blood 254 mg/dL (75-99)
--- NOTE | 2021-11-21 21:32 | P.PN ---
Subjective Progress Note Date: 11/21/21 Principal diagnosis: Right heel diabetic wound infection Patient is a 61 year old male with a past medical history significant for left [id number] amputation in this patient with underlying diabetes presenting to the hospital with a nonhealing wound to the right heel and concern for secondary infection, patient did have MRI completed on 11/10/2021 with no evidence of osteomyelitis. The patient is status post surgical debridement of his right heel wound completed on 11/13/2021 with evidence of extension of the wound down to the wound On today's evaluation that is 11/21/2021, the patient denies any fever or any chills, the patient pain to the right heel area is currently controlled , the patient denies chest pain shortness of breath or cough, the patient denies nausea no vomiting no abdominal pain no diarrhea, overall feeling better Objective - Vital Signs Vital signs: Vital Signs Temp 99.3 F 11/21/21 08:00 Pulse 89 11/21/21 08:00 Resp 16 11/21/21 08:00 BP 137/69 11/21/21 08:00 Pulse Ox 95 11/21/21 08:00 Intake & Output 11/20/21 11/21/21 11/21/21 18:59 06:59 18:59 Intake Total 750 Output Total 1000 600 Balance -250 -600 Intake: Intake, IV Titration 150 Amount Ampicillin-Sulbactam 3 gm 100 In Sodium Chloride 0.9% 100 ml @ 200 mls/hr IVPB Q8HR [facility] Rx#:[id number] DAPTOmycin 500 mg In 50 Sodium Chloride 0.9% 50 ml @ 100 mls/hr IVPB Q24H [facility] Rx#:[id number] Oral 600 Output: Urine 1000 600 Straight 1000 Other: Voiding Method Urinal Urinal # Bowel Movements 1 - Exam GENERAL DESCRIPTION: Middle-aged male lying in bed in no distress RESPIRATORY SYSTEM: Unlabored breathing , decreased breath sounds at bases HEART: S1 S2 regular rate and rhythm , ABDOMEN: Soft , no tenderness EXTREMITIES: Right lateral heel wound did have some slough tissue some surrounding redness no foul-smelling drainage - Labs CBC & Chem 7: 11/21/21 08:56 11/21/21 08:56 Labs: Abnormal Lab Results - Last 24 Hours (Table) 11/20/21 11/20/21 11/21/21 Range/Units 16:04 21:05 07:01 RBC (4.30-5.90) m/uL Hgb (13.0-17.5) gm/dL Hct (39.0-53.0) % BUN (9-20) mg/dL Creatinine (0.66-1.25) mg/dL Glucose (74-99) mg/dL POC Glucose (mg/dL) 238 H 148 H 177 H (75-99) mg/dL Calcium (8.4-10.2) mg/dL 11/21/21 11/21/21 11/21/21 Range/Units 08:56 08:56 11:40 RBC 3.06 L (4.30-5.90) m/uL Hgb 8.9 L (13.0-17.5) gm/dL Hct 28.6 L (39.0-53.0) % BUN 32 H (9-20) mg/dL Creatinine 2.69 H (0.66-1.25) mg/dL Glucose 143 H (74-99) mg/dL POC Glucose (mg/dL) 125 H (75-99) mg/dL Calcium 8.1 L (8.4-10.2) mg/dL Assessment and Plan (1) Decubitus ulcer of foot Current Visit: Yes Status: Acute Code(s): L89.899 - PRESSURE ULCER OF OTHER SITE, UNSPECIFIED STAGE SNOMED Code(s): 7090160696 Plan: 1patient with right lateral heel/foot area diabetic foot ulcer started with 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 2 the patient did have surgical debridement with evidence of wound extended down to the board concerning for acute bacterial Osteomyelitis and deep culture has been finalized as MRSA along with Acinetobacter 3patient is currently being treated with Unasyn and daptomycin, duration of the antibiotic is total of 6 weeks with weekly monitoring of CRP and a sed rate 4-local wound care to continue with medahoney followed by moist dressing to be changed daily Time with Patient: Less than 30
[2021-11-22] MEDS: AMPICILLIN-SULBACTAM 3 GM in SODIUM CHLORIDE 0.9% 100 ML IVPB SCH ×4 (00:14→23:35)
[2021-11-22] MEDS: HEPARIN SODIUM,PORCINE/PF 5,000 UNIT/0.5 ML SYRINGE SQ SCH ×4 (00:14→23:34)
[2021-11-22] MEDS: oxyCODONE-APAP 10-325MG 1 EACH TAB PO PRN ×2 (00:25→17:20)
[2021-11-22] MEDS ORDERED: ACETAMINOPHEN TAB 325 MG TAB PO STA (03:05)
[2021-11-22] MEDS: LACTATED RINGERS 1,000 ML IV SCH ×2 (05:18→22:18)
[2021-11-22] MEDS: MORPHINE SULFATE 2 MG/ML SYRINGE IVP PRN ×2 (05:50→09:02)
[2021-11-22 06:42] LABS: Glucose,Whole Blood 122 mg/dL (75-99)
[2021-11-22] MEDS: INSULIN ASPART (NovoLOG) 100 UNIT/ML VIAL SQ SCH ×4 (07:30→20:40)
[2021-11-22] MEDS: carvediloL 12.5 MG TAB PO SCH ×2 (07:39→16:44)
[2021-11-22] MEDS: SODIUM BICARBONATE TAB 650 MG TAB PO SCH (07:39)
[2021-11-22] MEDS: amLODIPine 10 MG TAB PO SCH (07:39)
[2021-11-22] MEDS: GABAPENTIN 400 MG CAP PO SCH (07:39)
[2021-11-22] MEDS: hydrALAZINE HCL 25 MG TAB PO SCH ×3 (07:39→21:24)
[2021-11-22] MEDS: INSULIN DETEMIR (LEVEMIR) 100 UNIT/ML SYR SQ SCH ×2 (07:40→21:25)
[2021-11-22] MEDS: BUMETANIDE 0.25 MG/ML 4 ML VIAL IVP SCH (07:41)
[2021-11-22] MEDS: levETIRAcetam 500 MG TAB PO SCH ×2 (07:41→20:40)
[2021-11-22] MEDS: TICAGRELOR 90 MG TAB PO SCH ×2 (07:42→20:41)
[2021-11-22 09:36] LABS: Glucose,Whole Blood 182 mg/dL (75-99)
[2021-11-22 09:40] LABS: Basophils # (A) 0.03 X 10*3/uL (0.00-0.10); Basophils % (A) 0.4 %; Eosinophils # (A) 0.24 X 10*3/uL (0.04-0.35); Eosinophils % (A) 2.8 %; HCT 26.8 % (39.6-50.0); HGB 7.8 g/dL (13.0-17.0); Immature Grans, Automated 0.5 %; Lymphocytes # (A) 0.99 X 10*3/uL (0.90-5.00); Lymphocytes % (A) 11.6 %; MCH 27.4 pg (27.0-32.0); MCHC 29.1 g/dL (32.0-37.0); Mean Platelet Volume 9.7 fL (9.5-12.2); Monocytes # (A) 1.07 X 10*3/uL (0.20-1.00); Monocytes % (A) 12.6 %; NRBC Per 100 WBC 0 /100 WBCS (0.0-0.0); Neutrophils # (A) 6.13 X 10*3/uL (1.80-7.70); Neutrophils % (A) 72.1 %; Platelet Count 203 X 10*3/uL (140-440); RBC 2.85 X 10*6/uL (4.40-5.60); RDW 14.8 % (11.5-14.5)
[2021-11-22] MEDS ORDERED: BUMETANIDE 0.25 MG/ML 10 ML VIAL IV STA (09:42)
[2021-11-22 09:51] LABS: African American GFR (CKD) 29.5 (60.0-200.0); Anion Gap 11.5 mmol/L (10.00-18.00); BUN/Creat Ratio 13.27 Ratio (12.00-20.00); Blood Urea Nitrogen 34.5 mg/dL (9.0-27.0); Calcium 8.4 mg/dL (8.7-10.3); Carbon Dioxide 22.5 mmol/L (20.0-27.5); Non-African American GFR(CKD) 25.5 (60.0-200.0); Potassium 5.1 mmol/L (3.5-5.5)
[2021-11-22] MEDS ORDERED: methylPREDNISolone SOD SUCCI 125 MG/2 ML VIAL IV STA (09:52)
[2021-11-22] MEDS: IPRATROPIUM-ALBUTEROL 3 ML NEB INHALATION PRN ×2 (10:04→15:08)
[2021-11-22 10:08] LABS: Basophils # (A) 0.1 k/uL (0-0.2); Basophils % (A) 1 %; Eosinophils # (A) 0.4 k/uL (0-0.7); Eosinophils % (A) 3 %; HCT 32.4 % (39.0-53.0); HGB 9.7 gm/dL (13.0-17.5); Hypochromasia Marked; Lymphocytes # (A) 1.9 k/uL (1.0-4.8); Lymphocytes % (A) 13 %; MCH 27.9 pg (25.0-35.0); MCHC 29.8 g/dL (31.0-37.0); MCV 93.5 fL (80.0-100.0); Monocytes % (A) 7 %; Neutrophils # (A) 10.9 k/uL (1.3-7.7); Neutrophils % (A) 75 %; Platelet Count 287 k/uL (150-450); RBC 3.46 m/uL (4.30-5.90); RDW 14.8 % (11.5-15.5); WBC 14.5 k/uL (3.8-10.6)
[2021-11-22 10:11] LABS: ABG Base Excess -1.5 mmol/L; ABG HCO3 27 mmol/L (21-25); ABG Oxygen Saturation 98.8 % (94-97); ABG PO2 171 mmHg (83-108); ABG TCO2 30 mmol/L (19-24); Allen Test Performed? Yes
--- NOTE | 2021-11-22 10:12 | XR ---
EXAMINATION TYPE: XR chest 1V DATE OF EXAM: 11/22/2021 COMPARISON: Chest x-ray 11/21/2021 HISTORY: Shortness of breath TECHNIQUE: Single frontal view of the chest is obtained. FINDINGS: Right-sided PICC line is in place, distal tip is overlying the superior vena cava. Abnorma l attenuation within the lungs shows a similar appearance. There is no evident pneumothorax or pleura l effusion. Cardiac mediastinal sweat is stable. IMPRESSION: Correlate for possible pneumonia, edema.
[2021-11-22 10:23] LABS: African American GFR (CKD) 28 (>60 ml/min/1.73 sqM); Anion Gap 9 mmol/L; Blood Urea Nitrogen 36 mg/dL (9-20); Calcium 8.3 mg/dL (8.4-10.2); Carbon Dioxide 28 mmol/L (22-30); Chloride 106 mmol/L (98-107); Glucose 182 mg/dL (74-99); Non-African American GFR(CKD) 24 (>60 ml/min/1.73 sqM); Potassium 5.1 mmol/L (3.5-5.1); Sodium 143 mmol/L (137-145)
[2021-11-22 11:41] LABS: Glucose,Whole Blood 227 mg/dL (75-99)
[2021-11-22 11:48] LABS: ABG Base Excess -1.2 mmol/L; ABG HCO3 26 mmol/L (21-25); ABG Oxygen Saturation 97.1 % (94-97); ABG PCO2 55 mmHg (35-45); ABG PH 7.28 (7.35-7.45); ABG PO2 97 mmHg (83-108); ABG TCO2 27 mmol/L (19-24); Allen Test Performed? Yes
[2021-11-22 11:53] LABS: ABG PCO2 79 mmHg (35-45); ABG PH 7.15 (7.35-7.45)
[2021-11-22] MEDS: DAPTOmycin 500 MG in SODIUM CHLORIDE 0.9% 50 ML IVPB SCH (11:59)
[2021-11-22] MEDS: methylPREDNISolone SOD SUCCI 125 MG/2 ML VIAL IV SCH ×3 (12:05→23:35)
--- NOTE | 2021-11-22 13:16 | P.PN ---
Subjective This is a late entry, patient was initially seen and evaluated during rapid response this morning. Patient was seen and examined chart was reviewed. Patient is admitted here for right heel ulcer debridement. Patient has extensive history of diabetes mellitus, COPD, emphysema, heart failure, nephropathy diabetic, diabetic neuropathy. History of left BKA. Rapid response was called on this patient this morning and I attended this rapid response. Patient was found to be severely dyspneic respiratory distress saturating in 70s with confusion alteration in mental status. Patient was able to provide some information that he did not have any chest pain or abdominal pain or any other his comfort. Chart was reviewed patient was seen and exami ramiro. He was using accessory muscles he was initially on nonrebreather which was upgraded to BiPAP with improvement in his respiratory status. He has been given Bumex. He was given some morphine earlier this morning. He is also on OxyContin and gabapentin. His renal function has been worsening otherwise. Previous chest x-ray shows some interstitial lung disease thickening emphysema no infiltrates. Objective - Vital Signs Vital signs: Vital Signs Temp 99.4 F 11/22/21 11:00 Pulse 96 11/22/21 11:00 Resp 20 11/22/21 11:00 BP 124/80 11/22/21 11:00 Pulse Ox 95 11/22/21 11:00 Intake & Output 11/21/21 11/22/21 11/22/21 18:59 06:59 18:59 Intake Total 1080 100 Output Total 1400 400 60 Balance -320 -400 40 Intake: Intake, IV Titration 50 Amount DAPTOmycin 500 mg In 50 Sodium Chloride 0.9% 50 ml @ 100 mls/hr IVPB Q24H [facility] Rx#:[id number] Oral 1080 50 Output: Urine 1400 400 60 Uretheral (Poole) 700 Other: Voiding Method Urinal Indwelling Catheter Indwelling Catheter - Exam Patient seen acute severe respiratory distress tachypnea, using accessory respiratory muscles, confused not frankly lethargic, respiratory rate almost the range of 30/m Head and neck: Anicteric sclera, no facial asymmetry, no neck stiffness no neck masses no JVD Lungs: Very tight, normal movement no breath sounds no wheezing or rhonchi Cardiovascular: Tachycardic regular S1-S2 no murmurs rubs or gallops Abdomen: Soft and nondistended bowel sounds present throughout no masses no organomegaly no guarding Extremities: Left BKA On the right side 2+ edema hyperpigmentation, dorsalis pedis on the left present capillary refill present Neurological: He is confused but able to follow some commands, cranial nerves no gross abnormality pupils are round and reactive to light symmetrical no nystagmus, he is moving upper and lower extremities squeezing with both hands no focal deficits, not able to appreciate any rigidity or tremor or asterixis - Labs CBC & Chem 7: 11/22/21 10:00 11/22/21 10:00 Labs: Abnormal Lab Results - Last 24 Hours (Table) 11/21/21 11/21/21 11/22/21 Range/Units 16:45 20:11 06:01 WBC (3.8-10.6) k/uL RBC 2.85 L (4.40-5.60) X 10*6/uL Hgb 7.8 L (13.0-17.0) g/dL Hct 26.8 L (39.6-50.0) % MCHC 29.1 L (32.0-37.0) g/dL RDW 14.8 H (11.5-14.5) % Neutrophils # (1.3-7.7) k/uL Monocytes # 1.07 H (0.20-1.00) X 10*3/uL D-Dimer (<0.60) mg/L FEU ABG pH (7.35-7.45) ABG pCO2 (35-45) mmHg ABG pO2 (83-108) mmHg ABG HCO3 (21-25) mmol/L ABG Total CO2 (19-24) mmol/L ABG O2 Saturation (94-97) % BUN (9.0-27.0) mg/dL Creatinine (0.6-1.5) mg/dL Est GFR (CKD-EPI)AfAm (60.0-200.0) Est GFR (CKD-EPI)NonAf (60.0-200.0) Glucose (70-110) mg/dL POC Glucose (mg/dL) 159 H 254 H (75-99) mg/dL Plasma Lactic Acid Donny (0.7-2.0) mmol/L Calcium (8.7-10.3) mg/dL 11/22/21 11/22/21 11/22/21 Range/Units 06:01 06:40 09:33 WBC (3.8-10.6) k/uL RBC (4.40-5.60) X 10*6/uL Hgb (13.0-17.0) g/dL Hct (39.6-50.0) % MCHC (32.0-37.0) g/dL RDW (11.5-14.5) % Neutrophils # (1.3-7.7) k/uL Monocytes # (0.20-1.00) X 10*3/uL D-Dimer (<0.60) mg/L FEU ABG pH (7.35-7.45) ABG pCO2 (35-45) mmHg ABG pO2 (83-108) mmHg ABG HCO3 (21-25) mmol/L ABG Total CO2 (19-24) mmol/L ABG O2 Saturation (94-97) % BUN 34.5 H (9.0-27.0) mg/dL Creatinine 2.6 H (0.6-1.5) mg/dL Est GFR (CKD-EPI)AfAm 29.5 L (60.0-200.0) Est GFR (CKD-EPI)NonAf 25.5 L (60.0-200.0) Glucose 114 H (70-110) mg/dL POC Glucose (mg/dL) 122 H 182 H (75-99) mg/dL Plasma Lactic Acid Donny (0.7-2.0) mmol/L Calcium 8.4 L (8.7-10.3) mg/dL 11/22/21 11/22/21 11/22/21 Range/Units 09:57 10:00 10:00 WBC 14.5 H (3.8-10.6) k/uL RBC 3.46 L (4.40-5.60) X 10*6/uL Hgb 9.7 L (13.0-17.0) g/dL Hct 32.4 L (39.6-50.0) % MCHC 29.8 L (32.0-37.0) g/dL RDW (11.5-14.5) % Neutrophils # 10.9 H (1.3-7.7) k/uL Monocytes # (0.20-1.00) X 10*3/uL D-Dimer 7.95 H (<0.60) mg/L FEU ABG pH 7.15 L* (7.35-7.45) ABG pCO2 79 H* (35-45) mmHg ABG pO2 171 H (83-108) mmHg ABG HCO3 27 H (21-25) mmol/L ABG Total CO2 30 H (19-24) mmol/L ABG O2 Saturation 98.8 H (94-97) % BUN (9.0-27.0) mg/dL Creatinine (0.6-1.5) mg/dL Est GFR (CKD-EPI)AfAm (60.0-200.0) Est GFR (CKD-EPI)NonAf (60.0-200.0) Glucose (70-110) mg/dL POC Glucose (mg/dL) (75-99) mg/dL Plasma Lactic Acid Donny (0.7-2.0) mmol/L Calcium (8.7-10.3) mg/dL 11/22/21 11/22/21 11/22/21 Range/Units 10:00 11:38 11:45 WBC (3.8-10.6) k/uL RBC (4.40-5.60) X 10*6/uL Hgb (13.0-17.0) g/dL Hct (39.6-50.0) % MCHC (32.0-37.0) g/dL RDW (11.5-14.5) % Neutrophils # (1.3-7.7) k/uL Monocytes # (0.20-1.00) X 10*3/uL D-Dimer (<0.60) mg/L FEU ABG pH 7.28 L (7.35-7.45) ABG pCO2 55 H (35-45) mmHg ABG pO2 (83-108) mmHg ABG HCO3 26 H (21-25) mmol/L ABG Total CO2 27 H (19-24) mmol/L ABG O2 Saturation 97.1 H (94-97) % BUN 36 H (9.0-27.0) mg/dL Creatinine 2.74 H (0.6-1.5) mg/dL Est GFR (CKD-EPI)AfAm (60.0-200.0) Est GFR (CKD-EPI)NonAf (60.0-200.0) Glucose 182 H (70-110) mg/dL POC Glucose (mg/dL) 227 H (75-99) mg/dL Plasma Lactic Acid Donny (0.7-2.0) mmol/L Calcium 8.3 L (8.7-10.3) mg/dL 11/22/21 Range/Units 11:53 WBC (3.8-10.6) k/uL RBC (4.40-5.60) X 10*6/uL Hgb (13.0-17.0) g/dL Hct (39.6-50.0) % MCHC (32.0-37.0) g/dL RDW (11.5-14.5) % Neutrophils # (1.3-7.7) k/uL Monocytes # (0.20-1.00) X 10*3/uL D-Dimer (<0.60) mg/L FEU ABG pH (7.35-7.45) ABG pCO2 (35-45) mmHg ABG pO2 (83-108) mmHg ABG HCO3 (21-25) mmol/L ABG Total CO2 (19-24) mmol/L ABG O2 Saturation (94-97) % BUN (9.0-27.0) mg/dL Creatinine (0.6-1.5) mg/dL Est GFR (CKD-EPI)AfAm (60.0-200.0) Est GFR (CKD-EPI)NonAf (60.0-200.0) Glucose (70-110) mg/dL POC Glucose (mg/dL) (75-99) mg/dL Plasma Lactic Acid Donny 0.5 L (0.7-2.0) mmol/L Calcium (8.7-10.3) mg/dL Assessment and Plan Plan: #Acute respiratory distress with alteration in mental status, encephalopathy Acute on chronic hypoxic and hypercarbic respiratory failure likely due to underlying COPD/emphysema, obesity sleep apnea, medications Patient was assessed during the rapid response Placed on BiPAP ABG showed severe hypercarbic respiratory failure with pH of 7.1 and pCO2 of 79 Chest x-ray no significant changes previous chest x-ray CBC BMP no significant changes from before Troponin negative 1 EKG and telemetry showing sinus tachycardia Patient was placed on BiPAP, ask systems test technician to increase settings 16/9 Given breathing treatmentsx2, Bumex, Solu-Medrol Discontinue all the medications with sedating effects Discussed with pulmonary service, patient to be transferred to intensive care unit Patient was subsequently evaluated, respirations are much more, and his respiratory distress distress resolved; lungs now showing some movement of the air and bilateral wheezing He'll continue breathing treatments, BiPAP, steroids, antibiotics per pulmonary service His overall mentation and respiratory status is improving and he is overall much more awake alert and cooperative Ask systems test technician to repeat ABG in 1 hour Continue per pulmonary service We will obtain as well d-dimer, consider CT of the head if any issue with neurological examination and neurological status #Right diabetic foot infection with right heel wound with osteomyelitis in the setting of peripheral arterial disease Status post incision and drainage Vascular surgery following Plan for IV antibiotics via PICC line for 6 weeks: Daptomycin and Unasyn Infectious disease following, wound care following De-escalate all his pain medications #Acute on chronic kidney injury Likely underlying diabetic nephropathy Urinary retention, nephrology currently following #Urinary retention Suspect component of neurogenic bladder due to diabetes mellitus Currently with indwelling Poole catheter, Flomax #Type 2 diabetes mellitus with stress hyperglycemia diabetic neuropathy and nephropathy A1c 8.9 Continue to adjust his insulin, currently on Levemir 14 units twice a day #History of CVA On statin and Brillinta #Severe peripheral vascular disease History of left BKA Vascular surgery following, continue antiplatelet stat I placed a phone call to patient's daughter updated her on change in patient's overall condition. No response. Left a message to call me back.
--- NOTE | 2021-11-22 14:12 | P.CNPUL ---
History of Present Illness Consult date: 11/22/21 Requesting physician: Joe Waters Reason for consult: hypoxemia Chief complaint: Shortness of breath History of present illness: This is a 61-year-old male patient who was originally admitted on 11/09/2021 for right foot non-healing ulcer. The patient does have a history of diabetes me llitus, CVA/TIA, seizures, hypertension, below the knee amputation of the left leg. Chronic and ongoing tobacco dependence. He had recently moved here from [place] about 2 weeks ago. MRA of the right foot revealed a cutaneous ulcer defect in the lateral aspect of the calcaneus. There is surrounding edema. Soft tissue edema the foot. No fracture. No evidence of osteomyelitis. Cultures were positive for Citrobacter Disla and MRSA. ID is on the case and he is currently on Unasyn and daptomycin. Earlier today the patient developed a rather acute episode of shortness of breath and hypoxemia and a rapid response team was called. Chest x-ray revealed right-sided PICC line in place. Interstitial changes within the lungs with no evidence of pneumothorax or pleural effusion. He was placed on BiPAP initially 16/6 and 100% FiO2 and arterial blood gases revealed a pO2 of 171, pCO2 of 79, pH 7.14. He was decreased to 60% FiO2. He was transferred to the intensive care unit. He is seen there today in consultation. He is arousable. Follow-up blood gases revealed a pO2 of 97, pCO2 of 55 and a pH of 7.28 on the 60% FiO2. He was given an extra dose of IV Bumex. Initiated on IV Solu-Medrol and continued on DuoNeb inhalations. He is on heparin for DVT prophylaxis. He is currently maintaining O2 saturations in the 90s. He is hemodynamically stable. White count 14.5. Hemoglobin 9.7. Platelets 287. D-dimer was 7.95. Sodium 143. Potassium 5.3. BUN of 36. Creatinine of 2.74. Troponin negative 1. Review of Systems REVIEW OF SYSTEMS: CONSTITUTIONAL: Denies any recent significant weight loss or weight gain. EYES: Denies change in vision. EARS, NOSE, MOUTH, THROAT: Denies headaches, denies sore throat. CARDIOVASCULAR: Denies chest pain, palpitations or syncopal episodes. RESPIRATORY: Positive for shortness of breath, no cough, congestion or hemoptysis. GASTROINTESTINAL: Denies change in appetite, denies abdominal pain GENITOURINARY: Denies hematuria, denies infections. MUSKULOSKELETAL: Denies pain, denies swelling. INTEGUMENTARY: Nonhealing ulcer of the right heel. NEUROLOGICAL: Denies recent memory loss, no recent seizure activity. PSYCHIATRIC: Denies anxiety, denies depression. HEMATOLOGIC/LYMPHATIC: Denies anemia, denies enlarged lymph nodes. 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), MRSA Date of last positivie culture/infection: 11/11/21 MDRO Source:: Heel-MRSA Additional Past Surgical History / Comment(s): BKA right leg Past Anesthesia/Blood Transfusion Reactions: No Reported Reaction Past Psychological History: No Psychological Hx Reported Smoking Status: Current every day smoker Past Alcohol Use History: None Reported Past Drug Use History: None Reported Medications and Allergies Home Medications Medication Instructions Recorded Confirmed Type Carvedilol [Coreg] 12.5 mg PO BID-W/MEALS 11/09/21 11/09/21 History Insulin Glargine,Hum.rec.anlog 40 unit SQ HS 11/09/21 11/09/21 History [Basaglar Kwikpen U-100] Insulin Lispro [humaLOG Kwikpen] 15 units SQ AC-TID 11/09/21 11/09/21 History Ketoconazole 2% Shampoo [Nizoral] 1 applic TOPICAL DIRECTED 11/09/21 11/09/21 History Ticagrelor [Brilinta] 90 mg PO BID 11/09/21 11/09/21 History amLODIPine [Norvasc] 10 mg PO DAILY 11/09/21 11/09/21 History levETIRAcetam [Keppra] 1,000 mg PO BID 11/09/21 11/09/21 History Allergies Allergy/AdvReac Type Severity Reaction Status Date / Time No Known Allergies Allergy Verified 11/09/21 17:03 Physical Exam Vitals: Vital Signs Temp Pulse Pulse Resp BP BP BP 11/22/21 13:12 84 12 123/60 11/22/21 13:00 83 13 11/22/21 12:30 85 13 11/22/21 12:14 86 15 11/22/21 11:10 96 12 11/22/21 11:00 99.4 F 96 20 124/80 11/22/21 10:17 109 H 11/22/21 10:04 111 H 11/22/21 08:07 98.9 F 65 145/72 11/22/21 05:54 100.1 F H 90 19 131/71 11/22/21 04:11 99.9 F H 11/22/21 02:00 100.1 F H 90 15 153/72 11/21/21 22:50 98.1 F 80 18 139/79 11/21/21 14:00 99.9 F H 98 18 163/64 Pulse Ox 11/22/21 13:12 91 L 11/22/21 13:00 87 L 11/22/21 12:30 90 L 11/22/21 12:14 90 L 11/22/21 11:10 91 L 11/22/21 11:00 95 11/22/21 10:17 11/22/21 10:04 11/22/21 08:07 100 11/22/21 05:54 92 L 11/22/21 04:11 11/22/21 02:00 95 11/21/21 22:50 93 L 11/21/21 14:00 90 L Intake and Output 11/21/21 11/22/21 11/22/21 22:59 06:59 14:59 Intake Total 1080 100 Output Total 700 400 130 Balance 380 -400 -30 Intake: Intake, IV Titration 50 Amount DAPTOmycin 500 mg In 50 Sodium Chloride 0.9% 50 ml @ 100 mls/hr IVPB Q24H [facility] Rx#:[id number] Oral 1080 50 Output: Urine 700 400 130 Other: Voiding Method Indwelling Catheter Indwelling Catheter GENERAL EXAM: Arousable, following commands, 61-year-old male patient, on BiPAP 16/6 and 60% FiO2 comfortable in no apparent distress. HEAD: Normocephalic. EYES: Normal reaction of pupils, equal size. NOSE: Clear with pink turbinates. THROAT: No erythema or exudates. NECK: No masses, no JVD. CHEST: No chest wall deformity. LUNGS: Equal air entry with crackles in the posterior bases, diminished. CVS: S1 and S2 normal with no audible murmur, regular rhythm. ABDOMEN: No hepatosplenomegaly, normal bowel sounds, no guarding or rigidity. SPINE: No scoliosis or deformity SKIN: No rashes CENTRAL NERVOUS SYSTEM: No focal deficits, tone is normal in all 4 extremities. EXTREMITIES: Left below the knee amputation. Dressing to the right foot dry and intact. No clubbing, no cyanosis. Peripheral pulses are intact. Results - Laboratory Findings CBC and BMP: 11/22/21 10:00 11/22/21 10:00 ABG ABG pH 7.28 (7.35-7.45) L 11/22/21 11:45 ABG pCO2 55 mmHg (35-45) H 11/22/21 11:45 ABG pO2 97 mmHg (83-108) 11/22/21 11:45 ABG O2 Saturation 97.1 % (94-97) H 11/22/21 11:45 PT/INR, D-dimer PT 9.8 sec (9.0-12.0) 11/09/21 16:26 INR 0.9 (<1.2) 11/09/21 16:26 D-Dimer 7.95 mg/L FEU (<0.60) H 11/22/21 10:00 Abnormal lab findings: Abnormal Labs 11/09/21 11/09/21 11/09/21 16:26 16:26 16:26 WBC RBC 3.85 L Hgb 10.8 L Hct 33.6 L MCH MCHC RDW MPV Neutrophils # Monocytes # Eosinophils # D-Dimer 3.28 H ABG pH ABG pCO2 ABG pO2 ABG HCO3 ABG Total CO2 ABG O2 Saturation Potassium Chloride 110 H Carbon Dioxide Anion Gap BUN 26 H Creatinine 1.68 H Est GFR (CKD-EPI)AfAm Est GFR (CKD-EPI)NonAf BUN/Creatinine Ratio Glucose 196 H POC Glucose (mg/dL) Hemoglobin A1c Plasma Lactic Acid Donny Calcium 8.1 L Iron % Saturation Transferrin Total Bilirubin AST ALT Total Protein Albumin 3.0 L Albumin/Globulin Ratio Triglycerides Cholesterol LDL Cholesterol, Calc VLDL Cholesterol, Calc HDL Cholesterol Urine Protein Urine Glucose (UA) Urine Blood Urine Mucus 11/10/21 11/10/21 11/10/21 07:12 07:26 07:26 WBC RBC 3.64 L Hgb 9.8 L Hct 32.0 L MCH 26.9 L MCHC 30.6 L RDW MPV 9.1 L Neutrophils # Monocytes # Eosinophils # D-Dimer ABG pH ABG pCO2 ABG pO2 ABG HCO3 ABG Total CO2 ABG O2 Saturation Potassium Chloride Carbon Dioxide Anion Gap BUN Creatinine Est GFR (CKD-EPI)AfAm Est GFR (CKD-EPI)NonAf BUN/Creatinine Ratio Glucose POC Glucose (mg/dL) 266 H Hemoglobin A1c 8.9 H Plasma Lactic Acid Donny Calcium Iron % Saturation Transferrin Total Bilirubin AST ALT Total Protein Albumin Albumin/Globulin Ratio Triglycerides Cholesterol LDL Cholesterol, Calc VLDL Cholesterol, Calc HDL Cholesterol Urine Protein Urine Glucose (UA) Urine Blood Urine Mucus 11/10/21 11/10/21 11/10/21 07:26 11:35 17:08 WBC RBC Hgb Hct MCH MCHC RDW MPV Neutrophils # Monocytes # Eosinophils # D-Dimer ABG pH ABG pCO2 ABG pO2 ABG HCO3 ABG Total CO2 ABG O2 Saturation Potassium Chloride 110 H Carbon Dioxide Anion Gap BUN Creatinine 1.7 H Est GFR (CKD-EPI)AfAm 50.1 L Est GFR (CKD-EPI)NonAf 43.2 L BUN/Creatinine Ratio Glucose 205 H POC Glucose (mg/dL) 211 H 262 H Hemoglobin A1c Plasma Lactic Acid Donny Calcium 8.3 L Iron % Saturation Transferrin Total Bilirubin AST ALT Total Protein Albumin Albumin/Globulin Ratio Triglycerides Cholesterol LDL Cholesterol, Calc VLDL Cholesterol, Calc HDL Cholesterol Urine Protein Urine Glucose (UA) Urine Blood Urine Mucus 11/10/21 11/11/21 11/11/21 20:30 07:04 07:26 WBC RBC 3.31 L Hgb 8.9 L Hct 29.8 L MCH 26.9 L MCHC 29.9 L RDW MPV Neutrophils # Monocytes # Eosinophils # 0.40 H D-Dimer ABG pH ABG pCO2 ABG pO2 ABG HCO3 ABG Total CO2 ABG O2 Saturation Potassium Chloride Carbon Dioxide Anion Gap BUN Creatinine Est GFR (CKD-EPI)AfAm Est GFR (CKD-EPI)NonAf BUN/Creatinine Ratio Glucose POC Glucose (mg/dL) 229 H 194 H Hemoglobin A1c Plasma Lactic Acid Donny Calcium Iron % Saturation Transferrin Total Bilirubin AST ALT Total Protein Albumin Albumin/Globulin Ratio Triglycerides Cholesterol LDL Cholesterol, Calc VLDL Cholesterol, Calc HDL Cholesterol Urine Protein Urine Glucose (UA) Urine Blood Urine Mucus 11/11/21 11/11/21 11/11/21 07:26 11:22 16:47 WBC RBC Hgb Hct MCH MCHC RDW MPV Neutrophils # Monocytes # Eosinophils # D-Dimer ABG pH ABG pCO2 ABG pO2 ABG HCO3 ABG Total CO2 ABG O2 Saturation Potassium Chloride 112 H Carbon Dioxide 19.7 L Anion Gap 9.30 L BUN Creatinine 1.9 H Est GFR (CKD-EPI)AfAm 43.1 L Est GFR (CKD-EPI)NonAf 37.2 L BUN/Creatinine Ratio 11.74 L Glucose 176 H POC Glucose (mg/dL) 205 H 256 H Hemoglobin A1c Plasma Lactic Acid Donny Calcium 8.1 L Iron % Saturation Transferrin Total Bilirubin <0.15 L AST 10 L ALT <5 L Total Protein 5.7 L Albumin 2.9 L Albumin/Globulin Ratio 1.04 L Triglycerides Cholesterol LDL Cholesterol, Calc VLDL Cholesterol, Calc HDL Cholesterol Urine Protein Urine Glucose (UA) Urine Blood Urine Mucus 11/11/21 11/12/21 11/12/21 20:26 06:57 07:40 WBC RBC 3.42 L Hgb 9.1 L Hct 30.7 L MCH 26.6 L MCHC 29.6 L RDW MPV 9.2 L Neutrophils # Monocytes # Eosinophils # 0.43 H D-Dimer ABG pH ABG pCO2 ABG pO2 ABG HCO3 ABG Total CO2 ABG O2 Saturation Potassium Chloride Carbon Dioxide Anion Gap BUN Creatinine Est GFR (CKD-EPI)AfAm Est GFR (CKD-EPI)NonAf BUN/Creatinine Ratio Glucose POC Glucose (mg/dL) 219 H 210 H Hemoglobin A1c Plasma Lactic Acid Donny Calcium Iron % Saturation Transferrin Total Bilirubin AST ALT Total Protein Albumin Albumin/Globulin Ratio Triglycerides Cholesterol LDL Cholesterol, Calc VLDL Cholesterol, Calc HDL Cholesterol Urine Protein Urine Glucose (UA) Urine Blood Urine Mucus 11/12/21 11/12/21 11/12/21 07:40 07:40 11:29 WBC RBC Hgb Hct MCH MCHC RDW MPV Neutrophils # Monocytes # Eosinophils # D-Dimer ABG pH ABG pCO2 ABG pO2 ABG HCO3 ABG Total CO2 ABG O2 Saturation Potassium Chloride Carbon Dioxide Anion Gap 9.20 L BUN Creatinine 1.8 H Est GFR (CKD-EPI)AfAm 46.1 L Est GFR (CKD-EPI)NonAf 39.7 L BUN/Creatinine Ratio Glucose 208 H POC Glucose (mg/dL) 233 H Hemoglobin A1c Plasma Lactic Acid Donny Calcium 8.4 L Iron % Saturation Transferrin Total Bilirubin <0.15 L AST 12 L ALT <5 L Total Protein 6.1 L Albumin 3.2 L Albumin/Globulin Ratio 1.10 L Triglycerides 206.00 H Cholesterol 244.00 H LDL Cholesterol, Calc 169.7 H VLDL Cholesterol, Calc 41.20 H HDL Cholesterol 33.10 L Urine Protein Urine Glucose (UA) Urine Blood Urine Mucus 11/12/21 11/12/21 11/13/21 16:32 20:46 06:54 WBC RBC Hgb Hct MCH MCHC RDW MPV Neutrophils # Monocytes # Eosinophils # D-Dimer ABG pH ABG pCO2 ABG pO2 ABG HCO3 ABG Total CO2 ABG O2 Saturation Potassium Chloride Carbon Dioxide Anion Gap BUN Creatinine Est GFR (CKD-EPI)AfAm Est GFR (CKD-EPI)NonAf BUN/Creatinine Ratio Glucose POC Glucose (mg/dL) 207 H 266 H 166 H Hemoglobin A1c Plasma Lactic Acid Donny Calcium Iron % Saturation Transferrin Total Bilirubin AST ALT Total Protein Albumin Albumin/Globulin Ratio Triglycerides Cholesterol LDL Cholesterol, Calc VLDL Cholesterol, Calc HDL Cholesterol Urine Protein Urine Glucose (UA) Urine Blood Urine Mucus 11/13/21 11/13/21 11/13/21 06:56 06:56 06:56 WBC RBC 3.14 L Hgb 8.5 L Hct 28.4 L MCH MCHC 29.9 L RDW MPV 9.2 L Neutrophils # Monocytes # Eosinophils # 0.40 H D-Dimer ABG pH ABG pCO2 ABG pO2 ABG HCO3 ABG Total CO2 ABG O2 Saturation Potassium Chloride 112 H Carbon Dioxide 18.8 L Anion Gap 9.20 L BUN Creatinine 1.9 H Est GFR (CKD-EPI)AfAm 43.1 L Est GFR (CKD-EPI)NonAf 37.2 L BUN/Creatinine Ratio 11.89 L Glucose 168 H POC Glucose (mg/dL) Hemoglobin A1c Plasma Lactic Acid Donny Calcium 8.2 L Iron 33 L % Saturation 13.75 L Transferrin 172.0 L Total Bilirubin <0.15 L AST 11 L ALT <5 L Total Protein 5.8 L Albumin 3.1 L Albumin/Globulin Ratio 1.15 L Triglycerides Cholesterol LDL Cholesterol, Calc VLDL Cholesterol, Calc HDL Cholesterol Urine Protein Urine Glucose (UA) Urine Blood Urine Mucus 11/13/21 11/13/21 11/13/21 12:37 14:25 16:41 WBC RBC Hgb Hct MCH MCHC RDW MPV Neutrophils # Monocytes # Eosinophils # D-Dimer ABG pH ABG pCO2 ABG pO2 ABG HCO3 ABG Total CO2 ABG O2 Saturation Potassium Chloride Carbon Dioxide Anion Gap BUN Creatinine Est GFR (CKD-EPI)AfAm Est GFR (CKD-EPI)NonAf BUN/Creatinine Ratio Glucose POC Glucose (mg/dL) 145 H 303 H Hemoglobin A1c Plasma Lactic Acid Donny Calcium Iron % Saturation Transferrin Total Bilirubin AST ALT Total Protein Albumin Albumin/Globulin Ratio Triglycerides Cholesterol LDL Cholesterol, Calc VLDL Cholesterol, Calc HDL Cholesterol Urine Protein 3+ H Urine Glucose (UA) 2+ H Urine Blood Small H Urine Mucus Rare H 11/13/21 11/14/21 11/14/21 20:31 07:47 07:47 WBC RBC 3.24 L Hgb 8.8 L Hct 29.0 L MCH MCHC 30.3 L RDW MPV Neutrophils # Monocytes # Eosinophils # D-Dimer ABG pH ABG pCO2 ABG pO2 ABG HCO3 ABG Total CO2 ABG O2 Saturation Potassium Chloride 110 H Carbon Dioxide 19.0 L Anion Gap BUN Creatinine 2.0 H Est GFR (CKD-EPI)AfAm 41.8 L Est GFR (CKD-EPI)NonAf 36.1 L BUN/Creatinine Ratio 11.28 L Glucose 219 H POC Glucose (mg/dL) 246 H Hemoglobin A1c Plasma Lactic Acid Donny Calcium 8.0 L Iron % Saturation Transferrin Total Bilirubin AST ALT Total Protein Albumin Albumin/Globulin Ratio Triglycerides Cholesterol LDL Cholesterol, Calc VLDL Cholesterol, Calc HDL Cholesterol Urine Protein Urine Glucose (UA) Urine Blood Urine Mucus 11/14/21 11/14/21 11/14/21 07:53 11:35 16:45 WBC RBC Hgb Hct MCH MCHC RDW MPV Neutrophils # Monocytes # Eosinophils # D-Dimer ABG pH ABG pCO2 ABG pO2 ABG HCO3 ABG Total CO2 ABG O2 Saturation Potassium Chloride Carbon Dioxide Anion Gap BUN Creatinine Est GFR (CKD-EPI)AfAm Est GFR (CKD-EPI)NonAf BUN/Creatinine Ratio Glucose POC Glucose (mg/dL) 234 H 273 H 205 H Hemoglobin A1c Plasma Lactic Acid Donny Calcium Iron % Saturation Transferrin Total Bilirubin AST ALT Total Protein Albumin Albumin/Globulin Ratio Triglycerides Cholesterol LDL Cholesterol, Calc VLDL Cholesterol, Calc HDL Cholesterol Urine Protein Urine Glucose (UA) Urine Blood Urine Mucus 11/14/21 11/15/21 11/15/21 20:37 06:25 07:02 WBC RBC Hgb Hct MCH MCHC RDW MPV Neutrophils # Monocytes # Eosinophils # D-Dimer ABG pH ABG pCO2 ABG pO2 ABG HCO3 ABG Total CO2 ABG O2 Saturation Potassium 8.2 H* Chloride Carbon Dioxide 18.6 L Anion Gap 8.40 L BUN Creatinine 2.0 H Est GFR (CKD-EPI)AfAm 40.5 L Est GFR (CKD-EPI)NonAf 35.0 L BUN/Creatinine Ratio 10.80 L Glucose 216 H POC Glucose (mg/dL) 258 H 213 H Hemoglobin A1c Plasma Lactic Acid Donny Calcium 8.2 L Iron % Saturation Transferrin Total Bilirubin AST ALT Total Protein Albumin Albumin/Globulin Ratio Triglycerides Cholesterol LDL Cholesterol, Calc VLDL Cholesterol, Calc HDL Cholesterol Urine Protein Urine Glucose (UA) Urine Blood Urine Mucus 11/15/21 11/15/21 11/15/21 10:45 11:36 16:38 WBC RBC Hgb Hct MCH MCHC RDW MPV Neutrophils # Monocytes # Eosinophils # D-Dimer ABG pH ABG pCO2 ABG pO2 ABG HCO3 ABG Total CO2 ABG O2 Saturation Potassium Chloride 111 H Carbon Dioxide 21 L Anion Gap BUN 23 H Creatinine 1.99 H Est GFR (CKD-EPI)AfAm Est GFR (CKD-EPI)NonAf BUN/Creatinine Ratio Glucose 220 H POC Glucose (mg/dL) 251 H 228 H Hemoglobin A1c Plasma Lactic Acid Donny Calcium 8.2 L Iron % Saturation Transferrin Total Bilirubin AST ALT Total Protein Albumin Albumin/Globulin Ratio Triglycerides Cholesterol LDL Cholesterol, Calc VLDL Cholesterol, Calc HDL Cholesterol Urine Protein Urine Glucose (UA) Urine Blood Urine Mucus 11/15/21 11/16/21 11/16/21 20:26 05:23 05:23 WBC RBC 3.46 L Hgb 9.8 L Hct 31.5 L MCH MCHC RDW MPV Neutrophils # Monocytes # Eosinophils # D-Dimer ABG pH ABG pCO2 ABG pO2 ABG HCO3 ABG Total CO2 ABG O2 Saturation Potassium Chloride 111 H Carbon Dioxide Anion Gap BUN 23 H Creatinine 2.11 H Est GFR (CKD-EPI)AfAm Est GFR (CKD-EPI)NonAf BUN/Creatinine Ratio Glucose 118 H POC Glucose (mg/dL) 169 H Hemoglobin A1c Plasma Lactic Acid Donny Calcium Iron % Saturation Transferrin Total Bilirubin AST ALT Total Protein Albumin 3.0 L Albumin/Globulin Ratio Triglycerides Cholesterol LDL Cholesterol, Calc VLDL Cholesterol, Calc HDL Cholesterol Urine Protein Urine Glucose (UA) Urine Blood Urine Mucus 11/16/21 11/16/21 11/16/21 06:56 11:22 16:43 WBC RBC Hgb Hct MCH MCHC RDW MPV Neutrophils # Monocytes # Eosinophils # D-Dimer ABG pH ABG pCO2 ABG pO2 ABG HCO3 ABG Total CO2 ABG O2 Saturation Potassium Chloride Carbon Dioxide Anion Gap BUN Creatinine Est GFR (CKD-EPI)AfAm Est GFR (CKD-EPI)NonAf BUN/Creatinine Ratio Glucose POC Glucose (mg/dL) 136 H 206 H 159 H Hemoglobin A1c Plasma Lactic Acid Donny Calcium Iron % Saturation Transferrin Total Bilirubin AST ALT Total Protein Albumin Albumin/Globulin Ratio Triglycerides Cholesterol LDL Cholesterol, Calc VLDL Cholesterol, Calc HDL Cholesterol Urine Protein Urine Glucose (UA) Urine Blood Urine Mucus 11/16/21 11/17/21 11/17/21 19:58 07:23 07:23 WBC RBC 3.34 L Hgb 9.4 L Hct 30.1 L MCH MCHC RDW MPV Neutrophils # Monocytes # Eosinophils # D-Dimer ABG pH ABG pCO2 ABG pO2 ABG HCO3 ABG Total CO2 ABG O2 Saturation Potassium Chloride Carbon Dioxide Anion Gap BUN 21 H Creatinine 1.99 H Est GFR (CKD-EPI)AfAm Est GFR (CKD-EPI)NonAf BUN/Creatinine Ratio Glucose 219 H POC Glucose (mg/dL) 199 H Hemoglobin A1c Plasma Lactic Acid Donny Calcium 8.3 L Iron % Saturation Transferrin Total Bilirubin AST ALT Total Protein Albumin 3.0 L Albumin/Globulin Ratio Triglycerides Cholesterol LDL Cholesterol, Calc VLDL Cholesterol, Calc HDL Cholesterol Urine Protein Urine Glucose (UA) Urine Blood Urine Mucus 11/17/21 11/17/21 11/17/21 07:25 12:32 16:48 WBC RBC Hgb Hct MCH MCHC RDW MPV Neutrophils # Monocytes # Eosinophils # D-Dimer ABG pH ABG pCO2 ABG pO2 ABG HCO3 ABG Total CO2 ABG O2 Saturation Potassium Chloride Carbon Dioxide Anion Gap BUN Creatinine Est GFR (CKD-EPI)AfAm Est GFR (CKD-EPI)NonAf BUN/Creatinine Ratio Glucose POC Glucose (mg/dL) 238 H 170 H 208 H Hemoglobin A1c Plasma Lactic Acid Donny Calcium Iron % Saturation Transferrin Total Bilirubin AST ALT Total Protein Albumin Albumin/Globulin Ratio Triglycerides Cholesterol LDL Cholesterol, Calc VLDL Cholesterol, Calc HDL Cholesterol Urine Protein Urine Glucose (UA) Urine Blood Urine Mucus 11/17/21 11/18/21 11/18/21 20:41 07:30 11:25 WBC RBC Hgb Hct MCH MCHC RDW MPV Neutrophils # Monocytes # Eosinophils # D-Dimer ABG pH ABG pCO2 ABG pO2 ABG HCO3 ABG Total CO2 ABG O2 Saturation Potassium Chloride Carbon Dioxide Anion Gap BUN Creatinine Est GFR (CKD-EPI)AfAm Est GFR (CKD-EPI)NonAf BUN/Creatinine Ratio Glucose POC Glucose (mg/dL) 259 H 223 H 228 H Hemoglobin A1c Plasma Lactic Acid Donny Calcium Iron % Saturation Transferrin Total Bilirubin AST ALT Total Protein Albumin Albumin/Globulin Ratio Triglycerides Cholesterol LDL Cholesterol, Calc VLDL Cholesterol, Calc HDL Cholesterol Urine Protein Urine Glucose (UA) Urine Blood Urine Mucus 11/18/21 11/18/21 11/19/21 16:13 20:43 06:32 WBC RBC 3.35 L Hgb 9.4 L Hct 30.9 L MCH MCHC 30.3 L RDW MPV Neutrophils # Monocytes # Eosinophils # D-Dimer ABG pH ABG pCO2 ABG pO2 ABG HCO3 ABG Total CO2 ABG O2 Saturation Potassium Chloride Carbon Dioxide Anion Gap BUN Creatinine Est GFR (CKD-EPI)AfAm Est GFR (CKD-EPI)NonAf BUN/Creatinine Ratio Glucose POC Glucose (mg/dL) 201 H 211 H Hemoglobin A1c Plasma Lactic Acid Donny Calcium Iron % Saturation Transferrin Total Bilirubin AST ALT Total Protein Albumin Albumin/Globulin Ratio Triglycerides Cholesterol LDL Cholesterol, Calc VLDL Cholesterol, Calc HDL Cholesterol Urine Protein Urine Glucose (UA) Urine Blood Urine Mucus 11/19/21 11/19/21 11/19/21 06:32 07:05 11:10 WBC RBC Hgb Hct MCH MCHC RDW MPV Neutrophils # Monocytes # Eosinophils # D-Dimer ABG pH ABG pCO2 ABG pO2 ABG HCO3 ABG Total CO2 ABG O2 Saturation Potassium Chloride 109 H Carbon Dioxide Anion Gap BUN 27 H Creatinine 2.12 H Est GFR (CKD-EPI)AfAm Est GFR (CKD-EPI)NonAf BUN/Creatinine Ratio Glucose 192 H POC Glucose (mg/dL) 208 H 205 H Hemoglobin A1c Plasma Lactic Acid Donny Calcium 8.1 L Iron % Saturation Transferrin Total Bilirubin AST ALT Total Protein Albumin Albumin/Globulin Ratio Triglycerides Cholesterol LDL Cholesterol, Calc VLDL Cholesterol, Calc HDL Cholesterol Urine Protein Urine Glucose (UA) Urine Blood Urine Mucus 11/19/21 11/19/21 11/20/21 16:13 20:16 06:46 WBC RBC Hgb Hct MCH MCHC RDW MPV Neutrophils # Monocytes # Eosinophils # D-Dimer ABG pH ABG pCO2 ABG pO2 ABG HCO3 ABG Total CO2 ABG O2 Saturation Potassium Chloride Carbon Dioxide Anion Gap BUN Creatinine Est GFR (CKD-EPI)AfAm Est GFR (CKD-EPI)NonAf BUN/Creatinine Ratio Glucose POC Glucose (mg/dL) 257 H 233 H 227 H Hemoglobin A1c Plasma Lactic Acid Donny Calcium Iron % Saturation Transferrin Total Bilirubin AST ALT Total Protein Albumin Albumin/Globulin Ratio Triglycerides Cholesterol LDL Cholesterol, Calc VLDL Cholesterol, Calc HDL Cholesterol Urine Protein Urine Glucose (UA) Urine Blood Urine Mucus 11/20/21 11/20/21 11/20/21 11:13 11:30 16:04 WBC RBC Hgb Hct MCH MCHC RDW MPV Neutrophils # Monocytes # Eosinophils # D-Dimer ABG pH ABG pCO2 ABG pO2 ABG HCO3 ABG Total CO2 ABG O2 Saturation Potassium 5.2 H Chloride 108 H Carbon Dioxide Anion Gap BUN 31 H Creatinine 2.44 H Est GFR (CKD-EPI)AfAm Est GFR (CKD-EPI)NonAf BUN/Creatinine Ratio Glucose 140 H POC Glucose (mg/dL) 156 H 238 H Hemoglobin A1c Plasma Lactic Acid Donny Calcium 8.1 L Iron % Saturation Transferrin Total Bilirubin AST ALT Total Protein Albumin Albumin/Globulin Ratio Triglycerides Cholesterol LDL Cholesterol, Calc VLDL Cholesterol, Calc HDL Cholesterol Urine Protein Urine Glucose (UA) Urine Blood Urine Mucus 11/20/21 11/21/21 11/21/21 21:05 07:01 08:56 WBC RBC 3.06 L Hgb 8.9 L Hct 28.6 L MCH MCHC RDW MPV Neutrophils # Monocytes # Eosinophils # D-Dimer ABG pH ABG pCO2 ABG pO2 ABG HCO3 ABG Total CO2 ABG O2 Saturation Potassium Chloride Carbon Dioxide Anion Gap BUN Creatinine Est GFR (CKD-EPI)AfAm Est GFR (CKD-EPI)NonAf BUN/Creatinine Ratio Glucose POC Glucose (mg/dL) 148 H 177 H Hemoglobin A1c Plasma Lactic Acid Donny Calcium Iron % Saturation Transferrin Total Bilirubin AST ALT Total Protein Albumin Albumin/Globulin Ratio Triglycerides Cholesterol LDL Cholesterol, Calc VLDL Cholesterol, Calc HDL Cholesterol Urine Protein Urine Glucose (UA) Urine Blood Urine Mucus 11/21/21 11/21/21 11/21/21 08:56 11:40 16:45 WBC RBC Hgb Hct MCH MCHC RDW MPV Neutrophils # Monocytes # Eosinophils # D-Dimer ABG pH ABG pCO2 ABG pO2 ABG HCO3 ABG Total CO2 ABG O2 Saturation Potassium Chloride Carbon Dioxide Anion Gap BUN 32 H Creatinine 2.69 H Est GFR (CKD-EPI)AfAm Est GFR (CKD-EPI)NonAf BUN/Creatinine Ratio Glucose 143 H POC Glucose (mg/dL) 125 H 159 H Hemoglobin A1c Plasma Lactic Acid Donny Calcium 8.1 L Iron % Saturation Transferrin Total Bilirubin AST ALT Total Protein Albumin Albumin/Globulin Ratio Triglycerides Cholesterol LDL Cholesterol, Calc VLDL Cholesterol, Calc HDL Cholesterol Urine Protein Urine Glucose (UA) Urine Blood Urine Mucus 11/21/21 11/22/21 11/22/21 20:11 06:01 06:01 WBC RBC 2.85 L Hgb 7.8 L Hct 26.8 L MCH MCHC 29.1 L RDW 14.8 H MPV Neutrophils # Monocytes # 1.07 H Eosinophils # D-Dimer ABG pH ABG pCO2 ABG pO2 ABG HCO3 ABG Total CO2 ABG O2 Saturation Potassium Chloride Carbon Dioxide Anion Gap BUN 34.5 H Creatinine 2.6 H Est GFR (CKD-EPI)AfAm 29.5 L Est GFR (CKD-EPI)NonAf 25.5 L BUN/Creatinine Ratio Glucose 114 H POC Glucose (mg/dL) 254 H Hemoglobin A1c Plasma Lactic Acid Donny Calcium 8.4 L Iron % Saturation Transferrin Total Bilirubin AST ALT Total Protein Albumin Albumin/Globulin Ratio Triglycerides Cholesterol LDL Cholesterol, Calc VLDL Cholesterol, Calc HDL Cholesterol Urine Protein Urine Glucose (UA) Urine Blood Urine Mucus 11/22/21 11/22/21 11/22/21 06:40 09:33 09:57 WBC RBC Hgb Hct MCH MCHC RDW MPV Neutrophils # Monocytes # Eosinophils # D-Dimer ABG pH 7.15 L* ABG pCO2 79 H* ABG pO2 171 H ABG HCO3 27 H ABG Total CO2 30 H ABG O2 Saturation 98.8 H Potassium Chloride Carbon Dioxide Anion Gap BUN Creatinine Est GFR (CKD-EPI)AfAm Est GFR (CKD-EPI)NonAf BUN/Creatinine Ratio Glucose POC Glucose (mg/dL) 122 H 182 H Hemoglobin A1c Plasma Lactic Acid Donny Calcium Iron % Saturation Transferrin Total Bilirubin AST ALT Total Protein Albumin Albumin/Globulin Ratio Triglycerides Cholesterol LDL Cholesterol, Calc VLDL Cholesterol, Calc HDL Cholesterol Urine Protein Urine Glucose (UA) Urine Blood Urine Mucus 11/22/21 11/22/21 11/22/21 10:00 10:00 10:00 WBC 14.5 H RBC 3.46 L Hgb 9.7 L Hct 32.4 L MCH MCHC 29.8 L RDW MPV Neutrophils # 10.9 H Monocytes # Eosinophils # D-Dimer 7.95 H ABG pH ABG pCO2 ABG pO2 ABG HCO3 ABG Total CO2 ABG O2 Saturation Potassium Chloride Carbon Dioxide Anion Gap BUN 36 H Creatinine 2.74 H Est GFR (CKD-EPI)AfAm Est GFR (CKD-EPI)NonAf BUN/Creatinine Ratio Glucose 182 H POC Glucose (mg/dL) Hemoglobin A1c Plasma Lactic Acid Donny Calcium 8.3 L Iron % Saturation Transferrin Total Bilirubin AST ALT Total Protein Albumin Albumin/Globulin Ratio Triglycerides Cholesterol LDL Cholesterol, Calc VLDL Cholesterol, Calc HDL Cholesterol Urine Protein Urine Glucose (UA) Urine Blood Urine Mucus 11/22/21 11/22/21 11/22/21 11:38 11:45 11:53 WBC RBC Hgb Hct MCH MCHC RDW MPV Neutrophils # Monocytes # Eosinophils # D-Dimer ABG pH 7.28 L ABG pCO2 55 H ABG pO2 ABG HCO3 26 H ABG Total CO2 27 H ABG O2 Saturation 97.1 H Potassium Chloride Carbon Dioxide Anion Gap BUN Creatinine Est GFR (CKD-EPI)AfAm Est GFR (CKD-EPI)NonAf BUN/Creatinine Ratio Glucose POC Glucose (mg/dL) 227 H Hemoglobin A1c Plasma Lactic Acid Donny 0.5 L Calcium Iron % Saturation Transferrin Total Bilirubin AST ALT Total Protein Albumin Albumin/Globulin Ratio Triglycerides Cholesterol LDL Cholesterol, Calc VLDL Cholesterol, Calc HDL Cholesterol Urine Protein Urine Glucose (UA) Urine Blood Urine Mucus - Diagnostic Findings Chest x-ray: image reviewed Assessment and Plan Assessment: 1 Acute hypoxemic respiratory failure secondary to suspected fluid volume overload and atelectasis. Elevated d-dimer. Doppler of the lower extremity pending 2 Nonhealing ulcer of the right heel with debridement on 11/15/2021. Cultures positive for MRSA and Citrobacter Karma currently on Unasyn and daptomycin 3 Acute renal failure with current creatinine 2.74 4 Diabetes mellitus type 2 5 Diabetic neuropathy 6 Peripheral vascular disease with previous left below the knee amputation 7 Chronic and ongoing tobacco dependence 8 Hypertension 9 History of seizures Plan: The patient was seen and evaluated Chest x-ray and labs reviewed Repeat Doppler of the lower extremity Continue on BiPAP 16/6 and 60% FiO2 for now Continue DuoNeb inhalations, IV Solu-Medrol Currently on daptomycin and Unasyn Titrate down the FiO2 as tolerated Continue to monitor closely in the intensive care unit We will continue to follow and make further recommendations based on his clinical status I have personally seen and examined the patient, performed the documentation and the assessment and plan as written. Number of minutes spent on the visit: 20.
--- NOTE | 2021-11-22 15:12 | US ---
EXAMINATION TYPE: US venous doppler duplex LE DATE OF EXAM: 11/22/2021 2:53 PM COMPARISON: US 11/18/2021 CLINICAL HISTORY: Hypoxemia, elevated d dimer. Exam done portable SIDE PERFORMED: Bilateral TECHNIQUE: The lower extremity deep venous system is examined utilizing real time linear array sonog marie with graded compression, doppler sonography and color-flow sonography. VESSELS IMAGED: Common Femoral Vein Deep Femoral Vein Greater Saphenous Vein * Femoral Vein (* superficial vessels) Extremely difficult and limited study due to patient body habitus and edema Right Leg: Visualized portions appear negative for DVT, unable to visualize mid femoral vein due to catheter lake, popliteal vein not seen due to edema Left Leg: Visualized portions appear negative for DVT, popliteal vein not seen due to edema IMPRESSION: Exam is limited. No deep venous thrombosis is evident. There is extensive edema in the le ft leg
[2021-11-22] MEDS ORDERED: BUMETANIDE 1 MG TAB PO SCH (16:00)
--- NOTE | 2021-11-22 16:52 | P.PN ---
Subjective Patient is seen for follow-up for acute kidney injury. And volume overload. Currently maintained on oral Bumex. Serum creatinine staying at about 2.1-2 mg/dL. Bumex switch to IV due to increased scrotal edema. Patient had significant urine retention with 1 L of urine obtained on Poole catheter placement. This morning patient was transferred to ICU as he developed significant hypercapnic respiratory failure. He had received pain medications. Currently patient is maintained on BiPAP. He is sleepy but arousable. Urine output 60-70 mL an hour Hemodynamically stable. Objective - Vital Signs Vital signs: Vital Signs Temp 98.3 F 11/22/21 16:00 Pulse 96 11/22/21 16:10 Resp 12 11/22/21 16:10 BP 112/58 11/22/21 16:00 Pulse Ox 95 11/22/21 16:10 Intake & Output 11/21/21 11/22/21 11/22/21 18:59 06:59 18:59 Intake Total 1080 200 Output Total 1400 400 315 Balance -320 -400 -115 Intake: Intake, IV Titration 150 Amount Ampicillin-Sulbactam 3 gm 100 In Sodium Chloride 0.9% 100 ml @ 200 mls/hr IVPB Q8HR [facility] Rx#:[id number] DAPTOmycin 500 mg In 50 Sodium Chloride 0.9% 50 ml @ 100 mls/hr IVPB Q24H [facility] Rx#:[id number] Oral 1080 50 Output: Urine 1400 400 315 Uretheral (Poole) 700 Other: Voiding Method Urinal Indwelling Catheter Indwelling Catheter - Exam Sleepy but arousable. Currently on BiPAP. not in any acute distress Examination of the heart S1 and S2 Examination lungs bilateral breath sounds are heard Abdomen is soft nontender obese Examination of lower extremities shows significant edema bilaterally. Significant Scrotal edema noted as well. - Labs CBC & Chem 7: 11/22/21 10:00 11/22/21 10:00 Labs: Abnormal Lab Results - Last 24 Hours (Table) 11/21/21 11/21/21 11/22/21 Range/Units 16:45 20:11 06:01 WBC (3.8-10.6) k/uL RBC 2.85 L (4.40-5.60) X 10*6/uL Hgb 7.8 L (13.0-17.0) g/dL Hct 26.8 L (39.6-50.0) % MCHC 29.1 L (32.0-37.0) g/dL RDW 14.8 H (11.5-14.5) % Neutrophils # (1.3-7.7) k/uL Monocytes # 1.07 H (0.20-1.00) X 10*3/uL D-Dimer (<0.60) mg/L FEU ABG pH (7.35-7.45) ABG pCO2 (35-45) mmHg ABG pO2 (83-108) mmHg ABG HCO3 (21-25) mmol/L ABG Total CO2 (19-24) mmol/L ABG O2 Saturation (94-97) % BUN (9.0-27.0) mg/dL Creatinine (0.6-1.5) mg/dL Est GFR (CKD-EPI)AfAm (60.0-200.0) Est GFR (CKD-EPI)NonAf (60.0-200.0) Glucose (70-110) mg/dL POC Glucose (mg/dL) 159 H 254 H (75-99) mg/dL Plasma Lactic Acid Donny (0.7-2.0) mmol/L Calcium (8.7-10.3) mg/dL 11/22/21 11/22/21 11/22/21 Range/Units 06:01 06:40 09:33 WBC (3.8-10.6) k/uL RBC (4.40-5.60) X 10*6/uL Hgb (13.0-17.0) g/dL Hct (39.6-50.0) % MCHC (32.0-37.0) g/dL RDW (11.5-14.5) % Neutrophils # (1.3-7.7) k/uL Monocytes # (0.20-1.00) X 10*3/uL D-Dimer (<0.60) mg/L FEU ABG pH (7.35-7.45) ABG pCO2 (35-45) mmHg ABG pO2 (83-108) mmHg ABG HCO3 (21-25) mmol/L ABG Total CO2 (19-24) mmol/L ABG O2 Saturation (94-97) % BUN 34.5 H (9.0-27.0) mg/dL Creatinine 2.6 H (0.6-1.5) mg/dL Est GFR (CKD-EPI)AfAm 29.5 L (60.0-200.0) Est GFR (CKD-EPI)NonAf 25.5 L (60.0-200.0) Glucose 114 H (70-110) mg/dL POC Glucose (mg/dL) 122 H 182 H (75-99) mg/dL Plasma Lactic Acid Donny (0.7-2.0) mmol/L Calcium 8.4 L (8.7-10.3) mg/dL 11/22/21 11/22/21 11/22/21 Range/Units 09:57 10:00 10:00 WBC 14.5 H (3.8-10.6) k/uL RBC 3.46 L (4.40-5.60) X 10*6/uL Hgb 9.7 L (13.0-17.0) g/dL Hct 32.4 L (39.6-50.0) % MCHC 29.8 L (32.0-37.0) g/dL RDW (11.5-14.5) % Neutrophils # 10.9 H (1.3-7.7) k/uL Monocytes # (0.20-1.00) X 10*3/uL D-Dimer 7.95 H (<0.60) mg/L FEU ABG pH 7.15 L* (7.35-7.45) ABG pCO2 79 H* (35-45) mmHg ABG pO2 171 H (83-108) mmHg ABG HCO3 27 H (21-25) mmol/L ABG Total CO2 30 H (19-24) mmol/L ABG O2 Saturation 98.8 H (94-97) % BUN (9.0-27.0) mg/dL Creatinine (0.6-1.5) mg/dL Est GFR (CKD-EPI)AfAm (60.0-200.0) Est GFR (CKD-EPI)NonAf (60.0-200.0) Glucose (70-110) mg/dL POC Glucose (mg/dL) (75-99) mg/dL Plasma Lactic Acid Donny (0.7-2.0) mmol/L Calcium (8.7-10.3) mg/dL 11/22/21 11/22/21 11/22/21 Range/Units 10:00 11:38 11:45 WBC (3.8-10.6) k/uL RBC (4.40-5.60) X 10*6/uL Hgb (13.0-17.0) g/dL Hct (39.6-50.0) % MCHC (32.0-37.0) g/dL RDW (11.5-14.5) % Neutrophils # (1.3-7.7) k/uL Monocytes # (0.20-1.00) X 10*3/uL D-Dimer (<0.60) mg/L FEU ABG pH 7.28 L (7.35-7.45) ABG pCO2 55 H (35-45) mmHg ABG pO2 (83-108) mmHg ABG HCO3 26 H (21-25) mmol/L ABG Total CO2 27 H (19-24) mmol/L ABG O2 Saturation 97.1 H (94-97) % BUN 36 H (9.0-27.0) mg/dL Creatinine 2.74 H (0.6-1.5) mg/dL Est GFR (CKD-EPI)AfAm (60.0-200.0) Est GFR (CKD-EPI)NonAf (60.0-200.0) Glucose 182 H (70-110) mg/dL POC Glucose (mg/dL) 227 H (75-99) mg/dL Plasma Lactic Acid Donny (0.7-2.0) mmol/L Calcium 8.3 L (8.7-10.3) mg/dL 11/22/21 Range/Units 11:53 WBC (3.8-10.6) k/uL RBC (4.40-5.60) X 10*6/uL Hgb (13.0-17.0) g/dL Hct (39.6-50.0) % MCHC (32.0-37.0) g/dL RDW (11.5-14.5) % Neutrophils # (1.3-7.7) k/uL Monocytes # (0.20-1.00) X 10*3/uL D-Dimer (<0.60) mg/L FEU ABG pH (7.35-7.45) ABG pCO2 (35-45) mmHg ABG pO2 (83-108) mmHg ABG HCO3 (21-25) mmol/L ABG Total CO2 (19-24) mmol/L ABG O2 Saturation (94-97) % BUN (9.0-27.0) mg/dL Creatinine (0.6-1.5) mg/dL Est GFR (CKD-EPI)AfAm (60.0-200.0) Est GFR (CKD-EPI)NonAf (60.0-200.0) Glucose (70-110) mg/dL POC Glucose (mg/dL) (75-99) mg/dL Plasma Lactic Acid Donny 0.5 L (0.7-2.0) mmol/L Calcium (8.7-10.3) mg/dL Assessment and Plan Assessment: 1. Acute kidney injury ATN and secondary to urine retention, 2. Status post left BKA 3. Anemia of chronic disease 4. Hypertension with CK D 5. Chronic kidney disease, unknown baseline might etiology is diabetic kidney disease 6. Right foot nonhealing wound status post debridement on 11/13/2021. Being followed by vascular surgery. Wound cultures growing MRSA and Acinetobacter 7. Volume overload 8. Urine retention with straight cath showing 1000 mL of urine, status post Poole catheter placement 9. Acute hypercapnic respiratory failure currently on BiPAP. Plan: Continue IV Bumex Repeat labs in a.m. Continue with Poole catheter Continue with antibiotics Decrease Norvasc as blood pressure is borderline
[2021-11-22] MEDS ORDERED: BUMETANIDE 0.25 MG/ML 10 ML VIAL IV SCH (17:00)
[2021-11-22 18:14] LABS: Glucose,Whole Blood 258 mg/dL (75-99)
[2021-11-22] MEDS: BUMETANIDE 0.25 MG/ML 4 ML VIAL IV SCH (19:50)
[2021-11-22 20:39] LABS: Glucose,Whole Blood 244 mg/dL (75-99)
[2021-11-22] MEDS ORDERED: HYDROmorphone 0.2 MG/1 ML SYRINGE IVP PRN (20:52)
[2021-11-22] MEDS ORDERED: HYDROmorphone 0.5 MG/0.5 ML SYRINGE ONE (20:59)
--- NOTE | 2021-11-22 21:01 | P.PN ---
Subjective Progress Note Date: 11/22/21 Principal diagnosis: Right heel diabetic wound infection Patient is a 61 year old male with a past medical history significant for left [id number] amputation in this patient with underlying diabetes presenting to the hospital with a nonhealing wound to the right heel and concern for secondary infection, patient did have MRI completed on 11/10/2021 with no evidence of osteomyelitis. The patient is status post surgical debridement of his right heel wound completed on 11/13/2021 with evidence of extension of the wound down to the wound On today's evaluation that is 11/22/2021, the patient remains to be afebrile, patient did have worsening of his respiratory status requiring transfer to the ICU and has been BiPAP, patient been something of swelling to the scrotal and lower extremity denies having any chest pain did have a cough not bringing up any sputum no worsening pain to the right heel area and no diarrhea Objective - Vital Signs Vital signs: Vital Signs Temp 98.3 F 11/22/21 16:00 Pulse 79 11/22/21 19:00 Resp 16 11/22/21 19:00 BP 109/50 11/22/21 19:00 Pulse Ox 93 L 11/22/21 20:07 Intake & Output 11/22/21 11/22/21 11/23/21 06:59 18:59 06:59 Intake Total 450 Output Total 400 425 40 Balance -400 25 -40 Intake: Intake, IV Titration 150 Amount Ampicillin-Sulbactam 3 gm 100 In Sodium Chloride 0.9% 100 ml @ 200 mls/hr IVPB Q8HR [facility] Rx#:[id number] DAPTOmycin 500 mg In 50 Sodium Chloride 0.9% 50 ml @ 100 mls/hr IVPB Q24H [facility] Rx#:[id number] Oral 300 Output: Urine 400 425 40 Other: Voiding Method Indwelling Catheter Indwelling Catheter - Exam GENERAL DESCRIPTION: Middle-aged male lying in bed in no distress RESPIRATORY SYSTEM: Unlabored breathing , decreased breath sounds at bases HEART: S1 S2 regular rate and rhythm , ABDOMEN: Soft , no tenderness EXTREMITIES: Right lateral heel wound did have some slough tissue some surrounding redness no foul-smelling drainage - Labs CBC & Chem 7: 11/22/21 10:00 11/22/21 10:00 Labs: Abnormal Lab Results - Last 24 Hours (Table) 11/22/21 11/22/21 11/22/21 Range/Units 06:01 06:01 06:40 WBC (3.8-10.6) k/uL RBC 2.85 L (4.40-5.60) X 10*6/uL Hgb 7.8 L (13.0-17.0) g/dL Hct 26.8 L (39.6-50.0) % MCHC 29.1 L (32.0-37.0) g/dL RDW 14.8 H (11.5-14.5) % Neutrophils # (1.3-7.7) k/uL Monocytes # 1.07 H (0.20-1.00) X 10*3/uL D-Dimer (<0.60) mg/L FEU ABG pH (7.35-7.45) ABG pCO2 (35-45) mmHg ABG pO2 (83-108) mmHg ABG HCO3 (21-25) mmol/L ABG Total CO2 (19-24) mmol/L ABG O2 Saturation (94-97) % BUN 34.5 H (9.0-27.0) mg/dL Creatinine 2.6 H (0.6-1.5) mg/dL Est GFR (CKD-EPI)AfAm 29.5 L (60.0-200.0) Est GFR (CKD-EPI)NonAf 25.5 L (60.0-200.0) Glucose 114 H (70-110) mg/dL POC Glucose (mg/dL) 122 H (75-99) mg/dL Plasma Lactic Acid Donny (0.7-2.0) mmol/L Calcium 8.4 L (8.7-10.3) mg/dL 11/22/21 11/22/21 11/22/21 Range/Units 09:33 09:57 10:00 WBC 14.5 H (3.8-10.6) k/uL RBC 3.46 L (4.40-5.60) X 10*6/uL Hgb 9.7 L (13.0-17.0) g/dL Hct 32.4 L (39.6-50.0) % MCHC 29.8 L (32.0-37.0) g/dL RDW (11.5-14.5) % Neutrophils # 10.9 H (1.3-7.7) k/uL Monocytes # (0.20-1.00) X 10*3/uL D-Dimer (<0.60) mg/L FEU ABG pH 7.15 L* (7.35-7.45) ABG pCO2 79 H* (35-45) mmHg ABG pO2 171 H (83-108) mmHg ABG HCO3 27 H (21-25) mmol/L ABG Total CO2 30 H (19-24) mmol/L ABG O2 Saturation 98.8 H (94-97) % BUN (9.0-27.0) mg/dL Creatinine (0.6-1.5) mg/dL Est GFR (CKD-EPI)AfAm (60.0-200.0) Est GFR (CKD-EPI)NonAf (60.0-200.0) Glucose (70-110) mg/dL POC Glucose (mg/dL) 182 H (75-99) mg/dL Plasma Lactic Acid Donny (0.7-2.0) mmol/L Calcium (8.7-10.3) mg/dL 11/22/21 11/22/21 11/22/21 Range/Units 10:00 10:00 11:38 WBC (3.8-10.6) k/uL RBC (4.40-5.60) X 10*6/uL Hgb (13.0-17.0) g/dL Hct (39.6-50.0) % MCHC (32.0-37.0) g/dL RDW (11.5-14.5) % Neutrophils # (1.3-7.7) k/uL Monocytes # (0.20-1.00) X 10*3/uL D-Dimer 7.95 H (<0.60) mg/L FEU ABG pH (7.35-7.45) ABG pCO2 (35-45) mmHg ABG pO2 (83-108) mmHg ABG HCO3 (21-25) mmol/L ABG Total CO2 (19-24) mmol/L ABG O2 Saturation (94-97) % BUN 36 H (9.0-27.0) mg/dL Creatinine 2.74 H (0.6-1.5) mg/dL Est GFR (CKD-EPI)AfAm (60.0-200.0) Est GFR (CKD-EPI)NonAf (60.0-200.0) Glucose 182 H (70-110) mg/dL POC Glucose (mg/dL) 227 H (75-99) mg/dL Plasma Lactic Acid Donny (0.7-2.0) mmol/L Calcium 8.3 L (8.7-10.3) mg/dL 11/22/21 11/22/21 11/22/21 Range/Units 11:45 11:53 18:11 WBC (3.8-10.6) k/uL RBC (4.40-5.60) X 10*6/uL Hgb (13.0-17.0) g/dL Hct (39.6-50.0) % MCHC (32.0-37.0) g/dL RDW (11.5-14.5) % Neutrophils # (1.3-7.7) k/uL Monocytes # (0.20-1.00) X 10*3/uL D-Dimer (<0.60) mg/L FEU ABG pH 7.28 L (7.35-7.45) ABG pCO2 55 H (35-45) mmHg ABG pO2 (83-108) mmHg ABG HCO3 26 H (21-25) mmol/L ABG Total CO2 27 H (19-24) mmol/L ABG O2 Saturation 97.1 H (94-97) % BUN (9.0-27.0) mg/dL Creatinine (0.6-1.5) mg/dL Est GFR (CKD-EPI)AfAm (60.0-200.0) Est GFR (CKD-EPI)NonAf (60.0-200.0) Glucose (70-110) mg/dL POC Glucose (mg/dL) 258 H (75-99) mg/dL Plasma Lactic Acid Donny 0.5 L (0.7-2.0) mmol/L Calcium (8.7-10.3) mg/dL 11/22/21 Range/Units 20:37 WBC (3.8-10.6) k/uL RBC (4.40-5.60) X 10*6/uL Hgb (13.0-17.0) g/dL Hct (39.6-50.0) % MCHC (32.0-37.0) g/dL RDW (11.5-14.5) % Neutrophils # (1.3-7.7) k/uL Monocytes # (0.20-1.00) X 10*3/uL D-Dimer (<0.60) mg/L FEU ABG pH (7.35-7.45) ABG pCO2 (35-45) mmHg ABG pO2 (83-108) mmHg ABG HCO3 (21-25) mmol/L ABG Total CO2 (19-24) mmol/L ABG O2 Saturation (94-97) % BUN (9.0-27.0) mg/dL Creatinine (0.6-1.5) mg/dL Est GFR (CKD-EPI)AfAm (60.0-200.0) Est GFR (CKD-EPI)NonAf (60.0-200.0) Glucose (70-110) mg/dL POC Glucose (mg/dL) 244 H (75-99) mg/dL Plasma Lactic Acid Dnony (0.7-2.0) mmol/L Calcium (8.7-10.3) mg/dL Assessment and Plan (1) Decubitus ulcer of foot Current Visit: Yes Status: Acute Code(s): L89.899 - PRESSURE ULCER OF OTHER SITE, UNSPECIFIED STAGE SNOMED Code(s): 7975902363 Plan: 1patient with right lateral heel/foot area diabetic foot ulcer started with shireen ridement of the callus by 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 2 the patient did have surgical debridement with evidence of wound extended down to the board concerning for acute bacterial Osteomyelitis and deep culture has been finalized as MRSA along with Acinetobacter 3patient local wound care to continue with medahoney followed by moist dressing to be changed daily 4- patient to continue with the daptomycin and Unasyn to cover for both pathogen grown from the cultures and continue supportive care Time with Patient: Less than 30
[2021-11-23] MEDS: oxyCODONE-APAP 10-325MG 1 EACH TAB PO PRN (03:35)
[2021-11-23] MEDS: BUMETANIDE 0.25 MG/ML 4 ML VIAL IV SCH ×2 (04:28→17:08)
[2021-11-23] MEDS: HYDROmorphone 0.5 MG/0.5 ML SYRINGE IVP PRN ×4 (05:15→21:13)
[2021-11-23] MEDS: methylPREDNISolone SOD SUCCI 125 MG/2 ML VIAL IV SCH (05:47)
[2021-11-23 06:34] LABS: Glucose,Whole Blood 287 mg/dL (75-99)
[2021-11-23] MEDS: INSULIN DETEMIR (LEVEMIR) 100 UNIT/ML SYR SQ SCH ×2 (06:35→21:15)
[2021-11-23] MEDS: INSULIN ASPART (NovoLOG) 100 UNIT/ML VIAL SQ SCH ×4 (06:35→21:21)
[2021-11-23] MEDS: carvediloL 12.5 MG TAB PO SCH ×2 (06:35→17:07)
[2021-11-23] MEDS: hydrALAZINE HCL 25 MG TAB PO SCH ×3 (07:54→21:15)
[2021-11-23] MEDS: SODIUM BICARBONATE TAB 650 MG TAB PO SCH (07:54)
[2021-11-23] MEDS: levETIRAcetam 500 MG TAB PO SCH ×2 (07:54→21:15)
[2021-11-23] MEDS: TICAGRELOR 90 MG TAB PO SCH ×2 (07:54→21:15)
[2021-11-23] MEDS: AMPICILLIN-SULBACTAM 3 GM in SODIUM CHLORIDE 0.9% 100 ML IVPB SCH ×3 (07:55→23:27)
[2021-11-23] MEDS: HEPARIN SODIUM,PORCINE/PF 5,000 UNIT/0.5 ML SYRINGE SQ SCH ×3 (07:55→23:27)
[2021-11-23 08:10] LABS: HGB 8.4 gm/dL (13.0-17.5); Hypochromasia Moderate; MCH 28.6 pg (25.0-35.0); MCHC 31.1 g/dL (31.0-37.0); MCV 92.2 fL (80.0-100.0); Mean Platelet Volume 7.9; Platelet Count 224 k/uL (150-450); RBC 2.93 m/uL (4.30-5.90); RDW 14.7 % (11.5-15.5); WBC 8.2 k/uL (3.8-10.6)
[2021-11-23 08:25] LABS: Potassium 5.3 mmol/L (3.5-5.1)
--- NOTE | 2021-11-23 09:44 | P.PN ---
Subjective Patient was then examined intensive care unit. Patient is off BiPAP on nasal cannula. He is awake and alert following commands denies any shortness of breath, chest pain, respiratory GI issues. Denies any headache nausea or vomiting. Objective - Vital Signs Vital signs: Vital Signs Temp 97.5 F L 11/23/21 04:00 Pulse 89 11/23/21 08:00 Resp 12 11/23/21 08:00 BP 126/85 11/23/21 08:00 Pulse Ox 90 L 11/23/21 08:00 Intake & Output 11/22/21 11/23/21 11/23/21 18:59 06:59 18:59 Intake Total 450 572 Output Total 425 650 75 Balance 25 -78 -75 Weight 117.2 kg Intake: Intake, IV Titration 150 100 Amount Ampicillin-Sulbactam 3 gm 100 100 In Sodium Chloride 0.9% 100 ml @ 200 mls/hr IVPB Q8HR [facility] Rx#:[id number] DAPTOmycin 500 mg In 50 Sodium Chloride 0.9% 50 ml @ 100 mls/hr IVPB Q24H [facility] Rx#:[id number] Oral 300 472 Output: Urine 425 650 75 Other: Voiding Method Indwelling Catheter Indwelling Catheter Indwelling Catheter - Exam General: Awake and alert following commands no distress on nasal cannula Head and neck: Anicteric sclera, no facial asymmetry, no neck stiffness no neck masses no JVD Lungs: Very tight, normal movement no breath sounds no wheezing or rhonchi Cardiovascular: Tachycardic regular S1-S2 no murmurs rubs or gallops Abdomen: Soft and nondistended bowel sounds present throughout no masses no organomegaly no guarding Extremities: Left BKA On the right side 2+ edema hyperpigmentation, dorsalis pedis on the left present capillary refill present Neurological: cranial nerves no gross abnormality; pupils are round and reactive to light symmetrical no nystagmus, he is moving upper and lower extremities squeezing with both hands no focal deficits, no asterixis, No tremor - Labs CBC & Chem 7: 11/23/21 07:37 11/23/21 07:37 Labs: Abnormal Lab Results - Last 24 Hours (Table) 11/22/21 11/22/21 11/22/21 Range/Units 06:01 06:01 09:57 WBC (3.8-10.6) k/uL RBC 2.85 L (4.40-5.60) X 10*6/uL Hgb 7.8 L (13.0-17.0) g/dL Hct 26.8 L (39.6-50.0) % MCHC 29.1 L (32.0-37.0) g/dL RDW 14.8 H (11.5-14.5) % Neutrophils # (1.3-7.7) k/uL Monocytes # 1.07 H (0.20-1.00) X 10*3/uL D-Dimer (<0.60) mg/L FEU ABG pH 7.15 L* (7.35-7.45) ABG pCO2 79 H* (35-45) mmHg ABG pO2 171 H (83-108) mmHg ABG HCO3 27 H (21-25) mmol/L ABG Total CO2 30 H (19-24) mmol/L ABG O2 Saturation 98.8 H (94-97) % Potassium (3.5-5.1) mmol/L BUN 34.5 H (9.0-27.0) mg/dL Creatinine 2.6 H (0.6-1.5) mg/dL Est GFR (CKD-EPI)AfAm 29.5 L (60.0-200.0) Est GFR (CKD-EPI)NonAf 25.5 L (60.0-200.0) Glucose 114 H (70-110) mg/dL POC Glucose (mg/dL) (75-99) mg/dL Plasma Lactic Acid Donny (0.7-2.0) mmol/L Calcium 8.4 L (8.7-10.3) mg/dL 11/22/21 11/22/21 11/22/21 Range/Units 10:00 10:00 10:00 WBC 14.5 H (3.8-10.6) k/uL RBC 3.46 L (4.40-5.60) X 10*6/uL Hgb 9.7 L (13.0-17.0) g/dL Hct 32.4 L (39.6-50.0) % MCHC 29.8 L (32.0-37.0) g/dL RDW (11.5-14.5) % Neutrophils # 10.9 H (1.3-7.7) k/uL Monocytes # (0.20-1.00) X 10*3/uL D-Dimer 7.95 H (<0.60) mg/L FEU ABG pH (7.35-7.45) ABG pCO2 (35-45) mmHg ABG pO2 (83-108) mmHg ABG HCO3 (21-25) mmol/L ABG Total CO2 (19-24) mmol/L ABG O2 Saturation (94-97) % Potassium (3.5-5.1) mmol/L BUN 36 H (9.0-27.0) mg/dL Creatinine 2.74 H (0.6-1.5) mg/dL Est GFR (CKD-EPI)AfAm (60.0-200.0) Est GFR (CKD-EPI)NonAf (60.0-200.0) Glucose 182 H (70-110) mg/dL POC Glucose (mg/dL) (75-99) mg/dL Plasma Lactic Acid Donny (0.7-2.0) mmol/L Calcium 8.3 L (8.7-10.3) mg/dL 11/22/21 11/22/21 11/22/21 Range/Units 11:38 11:45 11:53 WBC (3.8-10.6) k/uL RBC (4.40-5.60) X 10*6/uL Hgb (13.0-17.0) g/dL Hct (39.6-50.0) % MCHC (32.0-37.0) g/dL RDW (11.5-14.5) % Neutrophils # (1.3-7.7) k/uL Monocytes # (0.20-1.00) X 10*3/uL D-Dimer (<0.60) mg/L FEU ABG pH 7.28 L (7.35-7.45) ABG pCO2 55 H (35-45) mmHg ABG pO2 (83-108) mmHg ABG HCO3 26 H (21-25) mmol/L ABG Total CO2 27 H (19-24) mmol/L ABG O2 Saturation 97.1 H (94-97) % Potassium (3.5-5.1) mmol/L BUN (9.0-27.0) mg/dL Creatinine (0.6-1.5) mg/dL Est GFR (CKD-EPI)AfAm (60.0-200.0) Est GFR (CKD-EPI)NonAf (60.0-200.0) Glucose (70-110) mg/dL POC Glucose (mg/dL) 227 H (75-99) mg/dL Plasma Lactic Acid Donny 0.5 L (0.7-2.0) mmol/L Calcium (8.7-10.3) mg/dL 11/22/21 11/22/21 11/23/21 Range/Units 18:11 20:37 06:32 WBC (3.8-10.6) k/uL RBC (4.40-5.60) X 10*6/uL Hgb (13.0-17.0) g/dL Hct (39.6-50.0) % MCHC (32.0-37.0) g/dL RDW (11.5-14.5) % Neutrophils # (1.3-7.7) k/uL Monocytes # (0.20-1.00) X 10*3/uL D-Dimer (<0.60) mg/L FEU ABG pH (7.35-7.45) ABG pCO2 (35-45) mmHg ABG pO2 (83-108) mmHg ABG HCO3 (21-25) mmol/L ABG Total CO2 (19-24) mmol/L ABG O2 Saturation (94-97) % Potassium (3.5-5.1) mmol/L BUN (9.0-27.0) mg/dL Creatinine (0.6-1.5) mg/dL Est GFR (CKD-EPI)AfAm (60.0-200.0) Est GFR (CKD-EPI)NonAf (60.0-200.0) Glucose (70-110) mg/dL POC Glucose (mg/dL) 258 H 244 H 287 H (75-99) mg/dL Plasma Lactic Acid Donny (0.7-2.0) mmol/L Calcium (8.7-10.3) mg/dL 11/23/21 11/23/21 Range/Units 07:37 07:37 WBC (3.8-10.6) k/uL RBC 2.93 L (4.40-5.60) X 10*6/uL Hgb 8.4 L (13.0-17.0) g/dL Hct 27.0 L (39.6-50.0) % MCHC (32.0-37.0) g/dL RDW (11.5-14.5) % Neutrophils # (1.3-7.7) k/uL Monocytes # (0.20-1.00) X 10*3/uL D-Dimer (<0.60) mg/L FEU ABG pH (7.35-7.45) ABG pCO2 (35-45) mmHg ABG pO2 (83-108) mmHg ABG HCO3 (21-25) mmol/L ABG Total CO2 (19-24) mmol/L ABG O2 Saturation (94-97) % Potassium 5.3 H (3.5-5.1) mmol/L BUN 48 H (9.0-27.0) mg/dL Creatinine 2.72 H (0.6-1.5) mg/dL Est GFR (CKD-EPI)AfAm (60.0-200.0) Est GFR (CKD-EPI)NonAf (60.0-200.0) Glucose 271 H (70-110) mg/dL POC Glucose (mg/dL) (75-99) mg/dL Plasma Lactic Acid Donny (0.7-2.0) mmol/L Calcium 8.0 L (8.7-10.3) mg/dL Assessment and Plan Plan: #Acute respiratory distress with alteration in mental status, encephalopathy #Acute on chronic hypoxic and hypercarbic respiratory failure likely due to underlying COPD/emphysema, obesity sleep apnea, medications ABG showed severe hypercarbic respiratory failure with pH of 7.1 and pCO2 of 79 Improving with BiPAP Chest x-ray no significant changes previous chest x-ray Continue with supplemental oxygen and BiPAP when necessary Bumex, breathing treatments, systemic steroids Discontinued Neurontin and morphine, may continue low-dose Percocet when necessary, will decrease the frequency Discussed with pulmonary service #Right diabetic foot infection with right heel wound with osteomyelitis in the setting of peripheral arterial disease Status post incision and drainage Vascular surgery following Plan for IV antibiotics via PICC line for 6 weeks: Daptomycin and Unasyn Infectious disease following, wound care following De-escalate all his pain medications #Acute on chronic kidney injury Likely underlying diabetic nephropathy Urinary retention, nephrology currently following #Urinary retention Suspect component of neurogenic bladder due to diabetes mellitus Currently with indwelling Poole catheter, Flomax #Type 2 diabetes mellitus with stress hyperglycemia diabetic neuropathy and nephropathy A1c 8.9 Continue to adjust his insulin, currently on Levemir 14 units twice a day #History of CVA On statin and Brillinta #Severe peripheral vascular disease History of left BKA Vascular surgery following, continue antiplatelet stat #Severe peripheral edema Elevated d-dimer Venous duplex lower extremities negative for DVT 2 His respiratory status is improving, we will consider VQ scan
[2021-11-23] MEDS: HYDROcodone/APAP 5-325MG 1 EACH TAB PO PRN ×3 (10:32→23:59)
--- NOTE | 2021-11-23 11:23 | P.PN ---
Subjective Progress Note Date: 11/23/21 This is a 61-year-old male patient who was originally admitted on 11/09/2021 for right foot non-healing ulcer. The patient does have a history of diabetes mellitus, CVA/TIA, seizures, hypertension, below the knee amputation of the left leg. Chronic and ongoing tobacco dependence. He had recently moved here from [place] about 2 weeks ago. MRA of the right foot revealed a cutaneous ulcer defect in the lateral aspect of the calcaneus. There is surrounding edema. Soft tissue edema the foot. No fracture. No evidence of osteomyelitis. Cultures were positive for Citrobacter Disla and MRSA. ID is on the case and he is currently on Unasyn and daptomycin. Earlier today the patient developed a rather acute episode of shortness of breath and hypoxemia and a rapid response team was called. Chest x-ray revealed right-sided PICC line in place. Interstitial changes within the lungs with no evidence of pneumothorax or pleural effusion. He was placed on BiPAP initially 16/6 and 100% FiO2 and arterial blood gases revealed a pO2 of 171, pCO2 of 79, pH 7.14. He was decreased to 60% FiO2. He was transferred to the intensive care unit. He is seen there today in consultation. He is arousable. Follow-up blood gases revealed a pO2 of 97, pCO2 of 55 and a pH of 7.28 on the 60% FiO2. He was given an extra dose of IV Bumex. Initiated on IV Solu-Medrol and continued on DuoNeb inhalations. He is on heparin for DVT prophylaxis. He is currently maintaining O2 saturations in the 90s. He is hemodynamically stable. White count 14.5. Hemoglobin 9.7. Platelets 287. D-dimer was 7.95. Sodium 143. Potassium 5.3. BUN of 36. Creatinine of 2.74. Troponin negative 1. The patient is seen today 11/23/2021 in follow-up in the intensive care unit. He is much more awake and alert. Currently on 5 L high flow nasal cannula with O2 saturation the 90s. He did stay on BiPAP throughout the evening and 16/6 and 40% FiO2. No IV fluids. Repeat Doppler of the lower extremities did not reveal any significant DVT. Right foot wound is positive for MRSA and Acinetobacter Karma. He remains on daptomycin and Unasyn. Heparin for DVT prophylaxis. White count 8.2. Hemoglobin 8.4. Sodium 140 para potassium 5.3. BUN 48. Creatinine 2.72. Currently in a -720 ML balance. Objective - Vital Signs Vital signs: Vital Signs Temp 97.5 F L 11/23/21 04:00 Pulse 87 11/23/21 11:00 Resp 32 H 11/23/21 11:00 BP 125/101 11/23/21 11:00 Pulse Ox 92 L 11/23/21 11:00 Intake & Output 11/22/21 11/23/21 11/23/21 18:59 06:59 18:59 Intake Total 450 572 220 Output Total 425 650 225 Balance 25 -78 -5 Weight 117.2 kg Intake: Intake, IV Titration 150 100 100 Amount Ampicillin-Sulbactam 3 gm 100 100 100 In Sodium Chloride 0.9% 100 ml @ 200 mls/hr IVPB Q8HR [facility] Rx#:[id number] DAPTOmycin 500 mg In 50 Sodium Chloride 0.9% 50 ml @ 100 mls/hr IVPB Q24H [facility] Rx#:[id number] Oral 300 472 120 Output: Urine 425 650 225 Other: Voiding Method Indwelling Catheter Indwelling Catheter Indwelling Catheter - Exam GENERAL EXAM: Awake, alert 61-year-old male patient, on 5 L high flow nasal cannula alternating with BiPAP 16/6 and 40% FiO2 comfortable in no apparent distress. HEAD: Normocephalic. EYES: Normal reaction of pupils, equal size. NOSE: Clear with pink turbinates. THROAT: No erythema or exudates. NECK: No masses, no JVD. CHEST: No chest wall deformity. LUNGS: Equal air entry with crackles in the posterior bases, diminished. CVS: S1 and S2 normal with no audible murmur, regular rhythm. ABDOMEN: No hepatosplenomegaly, normal bowel sounds, no guarding or rigidity. SPINE: No scoliosis or deformity SKIN: No rashes CENTRAL NERVOUS SYSTEM: No focal deficits, tone is normal in all 4 extremities. EXTREMITIES: Left below the knee amputation. Dressing to the right foot dry and intact. No clubbing, no cyanosis. Peripheral pulses are intact. - Labs CBC & Chem 7: 11/23/21 07:37 11/23/21 07:37 Labs: Abnormal Lab Results - Last 24 Hours (Table) 11/22/21 11/22/21 11/22/21 Range/Units 09:57 11:38 11:45 RBC (4.30-5.90) m/uL Hgb (13.0-17.5) gm/dL Hct (39.0-53.0) % ABG pH 7.15 L* 7.28 L (7.35-7.45) ABG pCO2 79 H* 55 H (35-45) mmHg ABG pO2 171 H (83-108) mmHg ABG HCO3 27 H 26 H (21-25) mmol/L ABG Total CO2 30 H 27 H (19-24) mmol/L ABG O2 Saturation 98.8 H 97.1 H (94-97) % Potassium (3.5-5.1) mmol/L BUN (9-20) mg/dL Creatinine (0.66-1.25) mg/dL Glucose (74-99) mg/dL POC Glucose (mg/dL) 227 H (75-99) mg/dL Plasma Lactic Acid Donny (0.7-2.0) mmol/L Calcium (8.4-10.2) mg/dL 11/22/21 11/22/21 11/22/21 Range/Units 11:53 18:11 20:37 RBC (4.30-5.90) m/uL Hgb (13.0-17.5) gm/dL Hct (39.0-53.0) % ABG pH (7.35-7.45) ABG pCO2 (35-45) mmHg ABG pO2 (83-108) mmHg ABG HCO3 (21-25) mmol/L ABG Total CO2 (19-24) mmol/L ABG O2 Saturation (94-97) % Potassium (3.5-5.1) mmol/L BUN (9-20) mg/dL Creatinine (0.66-1.25) mg/dL Glucose (74-99) mg/dL POC Glucose (mg/dL) 258 H 244 H (75-99) mg/dL Plasma Lactic Acid Donny 0.5 L (0.7-2.0) mmol/L Calcium (8.4-10.2) mg/dL 11/23/21 11/23/21 11/23/21 Range/Units 06:32 07:37 07:37 RBC 2.93 L (4.30-5.90) m/uL Hgb 8.4 L (13.0-17.5) gm/dL Hct 27.0 L (39.0-53.0) % ABG pH (7.35-7.45) ABG pCO2 (35-45) mmHg ABG pO2 (83-108) mmHg ABG HCO3 (21-25) mmol/L ABG Total CO2 (19-24) mmol/L ABG O2 Saturation (94-97) % Potassium 5.3 H (3.5-5.1) mmol/L BUN 48 H (9-20) mg/dL Creatinine 2.72 H (0.66-1.25) mg/dL Glucose 271 H (74-99) mg/dL POC Glucose (mg/dL) 287 H (75-99) mg/dL Plasma Lactic Acid Donny (0.7-2.0) mmol/L Calcium 8.0 L (8.4-10.2) mg/dL Assessment and Plan Assessment: 1 Acute hypoxemic respiratory failure secondary to suspected fluid volume overload and atelectasis. Elevated d-dimer. Doppler of the lower extremities negative for DVT 2 Nonhealing ulcer of the right heel with debridement on 11/15/2021. Cultures positive for MRSA and Acinetobacter karma currently on Unasyn and daptomycin 3 Acute renal failure with current creatinine 2.72 4 Diabetes mellitus type 2 5 Diabetic neuropathy 6 Peripheral vascular disease with previous left below the knee amputation 7 Chronic and ongoing tobacco dependence 8 Hypertension 9 History of seizures Plan: The patient was seen and evaluated Medication and labs reviewed Repeat Doppler of the lower extremities negative for DVT Currently on 5 L high flow nasal cannula alternating with BiPAP 16/6 and 40% FiO2 Discontinue IV Solu-Medrol Currently on daptomycin and Unasyn Titrate down the FiO2 as tolerated Could be transferred out of the ICU if remains stable later today We will continue to follow I have personally seen and examined the patient, performed the documentation and the assessment and plan as written. Number of minutes spent on the visit: 10.
[2021-11-23 11:43] LABS: Glucose,Whole Blood 275 mg/dL (75-99)
[2021-11-23] MEDS: DAPTOmycin 500 MG in SODIUM CHLORIDE 0.9% 50 ML IVPB SCH (11:55)
--- NOTE | 2021-11-23 15:09 | P.PN ---
Subjective Progress Note Date: 11/23/21 Principal diagnosis: Right heel diabetic wound infection Patient is a 61 year old male with a past medical history significant for left [id number] amputation in this patient with underlying diabetes presenting to the hospital with a nonhealing wound to the right heel and concern for secondary infection, patient did have MRI completed on 11/10/2021 with no evidence of osteomyelitis. The patient is status post surgical debridement of his right heel wound completed on 11/13/2021 with evidence of extension of the wound down to the wound On today's evaluation that is 11/23/2021, the patient is afebrile, patient is complaining of shortness of breath and swelling and pain to bilateral lower extremity, no chest pain no worsening cough or sputum production no abdominal pain no diarrhea Objective - Vital Signs Vital signs: Vital Signs Temp 97.5 F L 11/23/21 04:00 Pulse 87 11/23/21 11:00 Resp 32 H 11/23/21 11:00 BP 125/101 11/23/21 11:00 Pulse Ox 92 L 11/23/21 11:00 Intake & Output 11/22/21 11/23/21 11/23/21 18:59 06:59 18:59 Intake Total 450 572 220 Output Total 425 650 325 Balance 25 -78 -105 Weight 117.2 kg Intake: Intake, IV Titration 150 100 100 Amount Ampicillin-Sulbactam 3 gm 100 100 100 In Sodium Chloride 0.9% 100 ml @ 200 mls/hr IVPB Q8HR [facility] Rx#:[id number] DAPTOmycin 500 mg In 50 Sodium Chloride 0.9% 50 ml @ 100 mls/hr IVPB Q24H [facility] Rx#:[id number] Oral 300 472 120 Output: Urine 425 650 325 Other: Voiding Method Indwelling Catheter Indwelling Catheter Indwelling Catheter - Exam GENERAL DESCRIPTION: Middle-aged male lying in bed in no distress RESPIRATORY SYSTEM: Unlabored breathing , decreased breath sounds at bases HEART: S1 S2 regular rate and rhythm , ABDOMEN: Soft , no tenderness EXTREMITIES: Right lateral heel wound did have some slough tissue some surrounding redness no foul-smelling drainage - Labs CBC & Chem 7: 11/23/21 07:37 11/23/21 07:37 Labs: Abnormal Lab Results - Last 24 Hours (Table) 11/22/21 11/22/21 11/23/21 Range/Units 18:11 20:37 06:32 RBC (4.30-5.90) m/uL Hgb (13.0-17.5) gm/dL Hct (39.0-53.0) % Potassium (3.5-5.1) mmol/L BUN (9-20) mg/dL Creatinine (0.66-1.25) mg/dL Glucose (74-99) mg/dL POC Glucose (mg/dL) 258 H 244 H 287 H (75-99) mg/dL Calcium (8.4-10.2) mg/dL 11/23/21 11/23/21 11/23/21 Range/Units 07:37 07:37 11:42 RBC 2.93 L (4.30-5.90) m/uL Hgb 8.4 L (13.0-17.5) gm/dL Hct 27.0 L (39.0-53.0) % Potassium 5.3 H (3.5-5.1) mmol/L BUN 48 H (9-20) mg/dL Creatinine 2.72 H (0.66-1.25) mg/dL Glucose 271 H (74-99) mg/dL POC Glucose (mg/dL) 275 H (75-99) mg/dL Calcium 8.0 L (8.4-10.2) mg/dL Assessment and Plan (1) Decubitus ulcer of foot Current Visit: Yes Status: Acute Code(s): L89.899 - PRESSURE ULCER OF OTHER SITE, UNSPECIFIED STAGE SNOMED Code(s): 5093665423 Plan: 1patient with right lateral heel/foot area diabetic foot ulcer started with debridement of the callus by 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 2 the patient did have surgical debridement with evidence of wound extended down to the board concerning for acute bacterial Osteomyelitis and deep culture has been finalized as MRSA along with Acinetobacter 3patient local wound care to continue with medahoney followed by moist dressing to be changed daily and keep the area off the pressure 4- patient will be continued on the current antibiotic regime of daptomycin and Unasyn and continue supportive care Time with Patient: Less than 30
--- NOTE | 2021-11-23 16:01 | P.PN ---
Subjective Patient is seen for follow-up for acute kidney injury. And volume overload. Currently maintained on oral Bumex. Serum creatinine staying at about 2.1-2 mg/dL. Patient had significant urine retention with 1 L of urine obtained on Poole catheter placement. This morning patient is awake, comfortable. He is on BiPAP and is requesting for the BiPAP to be removed. Hemodynamically stable. Volume status much improved Objective - Vital Signs Vital signs: Vital Signs Temp 97.5 F L 11/23/21 04:00 Pulse 87 11/23/21 11:00 Resp 32 H 11/23/21 11:00 BP 125/101 11/23/21 11:00 Pulse Ox 92 L 11/23/21 11:00 Intake & Output 11/22/21 11/23/21 11/23/21 18:59 06:59 18:59 Intake Total 450 572 220 Output Total 425 650 325 Balance 25 -78 -105 Weight 117.2 kg Intake: Intake, IV Titration 150 100 100 Amount Ampicillin-Sulbactam 3 gm 100 100 100 In Sodium Chloride 0.9% 100 ml @ 200 mls/hr IVPB Q8HR [facility] Rx#:[id number] DAPTOmycin 500 mg In 50 Sodium Chloride 0.9% 50 ml @ 100 mls/hr IVPB Q24H [facility] Rx#:[id number] Oral 300 472 120 Output: Urine 425 650 325 Other: Voiding Method Indwelling Catheter Indwelling Catheter Indwelling Catheter - Exam Awake, comfortable, Currently on BiPAP. not in any acute distress Examination of the heart S1 and S2 Examination lungs bilateral breath sounds are heard Abdomen is soft nontender obese Examination of lower extremities shows significant edema bilaterally. Scrotal edema is improved - Labs CBC & Chem 7: 11/23/21 07:37 11/23/21 07:37 Labs: Abnormal Lab Results - Last 24 Hours (Table) 11/22/21 11/22/21 11/23/21 Range/Units 18:11 20:37 06:32 RBC (4.30-5.90) m/uL Hgb (13.0-17.5) gm/dL Hct (39.0-53.0) % Potassium (3.5-5.1) mmol/L BUN (9-20) mg/dL Creatinine (0.66-1.25) mg/dL Glucose (74-99) mg/dL POC Glucose (mg/dL) 258 H 244 H 287 H (75-99) mg/dL Calcium (8.4-10.2) mg/dL 11/23/21 11/23/21 11/23/21 Range/Units 07:37 07:37 11:42 RBC 2.93 L (4.30-5.90) m/uL Hgb 8.4 L (13.0-17.5) gm/dL Hct 27.0 L (39.0-53.0) % Potassium 5.3 H (3.5-5.1) mmol/L BUN 48 H (9-20) mg/dL Creatinine 2.72 H (0.66-1.25) mg/dL Glucose 271 H (74-99) mg/dL POC Glucose (mg/dL) 275 H (75-99) mg/dL Calcium 8.0 L (8.4-10.2) mg/dL Assessment and Plan Assessment: 1. Acute kidney injury ATN and secondary to urine retention, 2. Status post left BKA 3. Anemia of chronic disease, iron deficiency noted. Status post IV iron and maintained on Aranesp. 4. Hypertension with CK D 5. Chronic kidney disease, unknown baseline might etiology is diabetic kidney disease 6. Right foot nonhealing wound status post debridement on 11/13/2021. Being followed by vascular surgery. Wound cultures growing MRSA and Acinetobacter 7. Volume overload 8. Urine retention with straight cath showing 1000 mL of urine, status post Poole catheter placement 9. Acute hypercapnic respiratory failure currently on BiPAP. Plan: Continue IV Bumex for 1 more day. Switch to oral Bumex in a.m. Repeat labs in a.m.
[2021-11-23 16:46] LABS: Glucose,Whole Blood 233 mg/dL (75-99)
[2021-11-23 20:53] LABS: Glucose,Whole Blood 233 mg/dL (75-99)
[2021-11-23] MEDS: GABAPENTIN 100 MG CAP PO SCH (21:15)
[2021-11-24] MEDS: HYDROmorphone 0.5 MG/0.5 ML SYRINGE IVP PRN ×4 (03:58→20:46)
[2021-11-24] MEDS: BUMETANIDE 0.25 MG/ML 4 ML VIAL IV SCH (04:04)
[2021-11-24] MEDS: HYDROcodone/APAP 5-325MG 1 EACH TAB PO PRN ×2 (05:51→11:49)
[2021-11-24] MEDS: LACTATED RINGERS 1,000 ML IV SCH (05:58)
[2021-11-24 06:37] LABS: HCT 28.3 % (39.0-53.0); HGB 8.7 gm/dL (13.0-17.5); Hypochromasia Slight; MCH 28.2 pg (25.0-35.0); MCHC 30.8 g/dL (31.0-37.0); MCV 91.6 fL (80.0-100.0); Mean Platelet Volume 8.5; Platelet Count 249 k/uL (150-450); RBC 3.09 m/uL (4.30-5.90); WBC 10.1 k/uL (3.8-10.6)
[2021-11-24 06:58] LABS: Calcium 8.1 mg/dL (8.4-10.2); Potassium 4.8 mmol/L (3.5-5.1)
[2021-11-24 06:58] LABS: Glucose,Whole Blood 170 mg/dL (75-99)
[2021-11-24] MEDS: INSULIN DETEMIR (LEVEMIR) 100 UNIT/ML SYR SQ SCH ×2 (07:00→20:32)
[2021-11-24] MEDS: carvediloL 12.5 MG TAB PO SCH ×2 (07:00→18:58)
[2021-11-24] MEDS: INSULIN ASPART (NovoLOG) 100 UNIT/ML VIAL SQ SCH ×4 (07:01→20:33)
[2021-11-24] MEDS: BENZOCAINE/MENTHOL LOZENG 1 EACH LOZENGE MUCOUS MEM PRN (07:01)
[2021-11-24] MEDS: AMPICILLIN-SULBACTAM 3 GM in SODIUM CHLORIDE 0.9% 100 ML IVPB SCH ×2 (08:25→19:08)
[2021-11-24] MEDS: hydrALAZINE HCL 25 MG TAB PO SCH ×3 (08:26→23:06)
[2021-11-24] MEDS: levETIRAcetam 500 MG TAB PO SCH ×2 (08:26→23:06)
[2021-11-24] MEDS: TICAGRELOR 90 MG TAB PO SCH ×2 (08:26→23:06)
[2021-11-24] MEDS: SODIUM BICARBONATE TAB 650 MG TAB PO SCH (08:26)
[2021-11-24] MEDS: GABAPENTIN 100 MG CAP PO SCH ×2 (08:26→23:06)
[2021-11-24] MEDS: HEPARIN SODIUM,PORCINE/PF 5,000 UNIT/0.5 ML SYRINGE SQ SCH ×3 (08:26→23:10)
--- NOTE | 2021-11-24 09:50 | P.PN ---
Subjective Progress Note Date: 11/24/21 This is a 61-year-old male patient who was originally admitted on 11/09/2021 for right foot non-healing ulcer. The patient does have a history of diabetes mellitus, CVA/TIA, seizures, hypertension, below the knee amputation of the left leg. Chronic and ongoing tobacco dependence. He had recently moved here from [place] about 2 weeks ago. MRA of the right foot revealed a cutaneous ulcer defect in the lateral aspect of the calcaneus. There is surrounding edema. Soft tissue edema the foot. No fracture. No evidence of osteomyelitis. Cultures were positive for Citrobacter Disla and MRSA. ID is on the case and he is currently on Unasyn and daptomycin. Earlier today the patient developed a rather acute episode of shortness of breath and hypoxemia and a rapid response team was called. Chest x-ray revealed right-sided PICC line in place. Interstitial changes within the lungs with no evidence of pneumothorax or pleural effusion. He was placed on BiPAP initially 16/6 and 100% FiO2 and arterial blood gases revealed a pO2 of 171, pCO2 of 79, pH 7.14. He was decreased to 60% FiO2. He was transferred to the intensive care unit. He is seen there today in consultation. He is arousable. Follow-up blood gases revealed a pO2 of 97, pCO2 of 55 and a pH of 7.28 on the 60% FiO2. He was given an extra dose of IV Bumex. Initiated on IV Solu-Medrol and continued on DuoNeb inhalations. He is on heparin for DVT prophylaxis. He is currently maintaining O2 saturations in the 90s. He is hemodynamically stable. White count 14.5. Hemoglobin 9.7. Platelets 287. D-dimer was 7.95. Sodium 143. Potassium 5.3. BUN of 36. Creatinine of 2.74. Troponin negative 1. The patient is seen today 11/23/2021 in follow-up in the intensive care unit. He is much more awake and alert. Currently on 5 L high flow nasal cannula with O2 saturation the 90s. He did stay on BiPAP throughout the evening and 16/6 and 40% FiO2. No IV fluids. Repeat Doppler of the lower extremities did not reveal any significant DVT. Right foot wound is positive for MRSA and Acinetobacter Ronit. He remains on daptomycin and Unasyn. Heparin for DVT prophylaxis. White count 8.2. Hemoglobin 8.4. Sodium 140 para potassium 5.3. BUN 48. Creatinine 2.72. Currently in a -720 ML balance. The patient is seen today 11/24/2021 in follow-up in the intensive care unit. He is currently sitting up in bed. Awake and alert in no acute distress. He is maintaining O2 saturations in the 90s on 5 L high flow nasal cannula. He did utilize the BiPAP 12/6 and 40% FiO2 throughout the night. He denies any worsening shortness of breath, cough or congestion. No IV fluids currently. He is continued on bronchodilators, antibiotics in the form of Unasyn and daptomycin. Heparin for DVT prophylaxis. White count 10.1. Hemoglobin 8.7. Platelets 249. Sodium 141. Potassium 4.8. BUN 56. Creatinine 2.37. Remains in a negative balance of 582 ML's. Continued on Bumex 1 mg IV every 12 hours. Objective - Vital Signs Vital signs: Vital Signs Temp 98 F 11/24/21 08:00 Pulse 77 11/24/21 09:00 Resp 17 11/24/21 09:00 BP 161/79 11/24/21 09:00 Pulse Ox 92 L 11/24/21 09:00 Intake & Output 11/23/21 11/24/21 11/24/21 18:59 06:59 18:59 Intake Total 970 520 340 Output Total 722 1350 465 Balance 248 -830 -125 Weight 117.4 kg Intake: Intake, IV Titration 250 160 100 Amount Ampicillin-Sulbactam 3 gm 200 100 100 In Sodium Chloride 0.9% 100 ml @ 200 mls/hr IVPB Q8HR [facility] Rx#:[id number] DAPTOmycin 500 mg In 50 Sodium Chloride 0.9% 50 ml @ 100 mls/hr IVPB Q24H [facility] Rx#:[id number] Lactated Ringers 1,000 ml 60 @ 20 mls/hr IV .Q24H [facility] Rx#:[id number] Oral 720 360 240 Output: Urine 720 1350 465 Stool 2 Other: Voiding Method Indwelling Catheter Indwelling Catheter - Exam GENERAL EXAM: Awake, alert 61-year-old male patient, on 5 L high flow nasal cannula alternating with BiPAP 12/6 and 40% FiO2 comfortable in no apparent distress. HEAD: Normocephalic. EYES: Normal reaction of pupils, equal size. NOSE: Clear with pink turbinates. THROAT: No erythema or exudates. NECK: No masses, no JVD. CHEST: No chest wall deformity. LUNGS: Equal air entry with crackles in the posterior bases, diminished. CVS: S1 and S2 normal with no audible murmur, regular rhythm. ABDOMEN: No hepatosplenomegaly, normal bowel sounds, no guarding or rigidity. SPINE: No scoliosis or deformity SKIN: No rashes CENTRAL NERVOUS SYSTEM: No focal deficits, tone is normal in all 4 extremities. EXTREMITIES: Left below the knee amputation. Dressing to the right foot dry and intact. No clubbing, no cyanosis. Peripheral pulses are intact. - Labs CBC & Chem 7: 11/24/21 06:04 11/24/21 06:04 Labs: Abnormal Lab Results - Last 24 Hours (Table) 11/23/21 11/23/21 11/23/21 Range/Units 11:42 16:44 20:51 RBC (4.30-5.90) m/uL Hgb (13.0-17.5) gm/dL Hct (39.0-53.0) % MCHC (31.0-37.0) g/dL Chloride (98-107) mmol/L BUN (9-20) mg/dL Creatinine (0.66-1.25) mg/dL Glucose (74-99) mg/dL POC Glucose (mg/dL) 275 H 233 H 233 H (75-99) mg/dL Calcium (8.4-10.2) mg/dL 11/24/21 11/24/21 11/24/21 Range/Units 06:04 06:04 06:56 RBC 3.09 L (4.30-5.90) m/uL Hgb 8.7 L (13.0-17.5) gm/dL Hct 28.3 L (39.0-53.0) % MCHC 30.8 L (31.0-37.0) g/dL Chloride 109 H (98-107) mmol/L BUN 56 H (9-20) mg/dL Creatinine 2.37 H (0.66-1.25) mg/dL Glucose 158 H (74-99) mg/dL POC Glucose (mg/dL) 170 H (75-99) mg/dL Calcium 8.1 L (8.4-10.2) mg/dL Assessment and Plan Assessment: 1 Acute hypoxemic respiratory failure secondary to suspected fluid volume overload and atelectasis. Elevated d-dimer. Doppler of the lower extremities negative for DVT 2 Nonhealing ulcer of the right heel with debridement on 11/15/2021. Cultures positive for MRSA and Acinetobacter ronit currently on Unasyn and daptomycin 3 Acute renal failure with current creatinine 2.72 4 Diabetes mellitus type 2 5 Diabetic neuropathy 6 Peripheral vascular disease with previous left below the knee amputation 7 Chronic and ongoing tobacco dependence 8 Hypertension 9 History of seizures Plan: The patient was seen and evaluated Medication and labs reviewed Currently on 5 L high flow nasal cannula alternating with BiPAP 07/09 and 40% FiO2 Remains on bronchodilators Currently on daptomycin and Unasyn Titrate down the FiO2 as tolerated Transfer to [facility] with telemetry Increase his activity as tolerated We will continue to follow I have personally seen and examined the patient, performed the documentation and the assessment and plan as written. Number of minutes spent on the visit: 10.
[2021-11-24] MEDS: DAPTOmycin 500 MG in SODIUM CHLORIDE 0.9% 50 ML IVPB SCH (12:00)
[2021-11-24 12:02] LABS: Glucose,Whole Blood 154 mg/dL (75-99)
--- NOTE | 2021-11-24 12:27 | P.PN ---
Subjective Progress Note Date: 11/24/21 No new complaints today. Pt stepped down to floor from ICU. Remains on BIPAP intermittently. Gen: awake, alert HEENT: normocephalic, atraumatic, good hearing acuity, moist mucous membranes Resp: good air exchange, breathing comfortably with no accessory muscle use CVS: good distal perfusion x 4, GI: soft, NTTP, ND : no SPT, no CVAT, he catheter not present MSK: + pitting edema, no clubbing Neuro: non-focal, moving all extremities Psych: cooperative, euthymic mood Assessment/Plan: #Acute respiratory distress with alteration in mental status, encephalopathy #Acute on chronic hypoxic and hypercarbic respiratory failure likely due to underlying COPD/emphysema, obesity sleep apnea, medications ABG showed severe hypercarbic respiratory failure with pH of 7.1 and pCO2 of 79 Improving with BiPAP Chest x-ray no significant changes previous chest x-ray Continue with supplemental oxygen and BiPAP when necessary Bumex, breathing treatments, systemic steroids Discontinued Neurontin and morphine, may continue low-dose Percocet when necessary, will decrease the frequency Discussed with pulmonary service #Right diabetic foot infection with right heel wound with osteomyelitis in the setting of peripheral arterial disease Status post incision and drainage Vascular surgery following Plan for IV antibiotics via PICC line for 6 weeks: Daptomycin and Unasyn Infectious disease following, wound care following De-escalate all his pain medications #Acute on chronic kidney injury #Urinary Retention Likely underlying diabetic nephropathy nephrology currently following Suspect component of neurogenic bladder due to diabetes mellitus Currently with indwelling He catheter, Flomax #Type 2 diabetes mellitus with stress hyperglycemia diabetic neuropathy and nephropathy A1c 8.9 Continue to adjust his insulin, increased Levemir to 20 units twice a day #History of CVA On statin and Brillinta #Severe peripheral vascular disease History of left BKA Vascular surgery following, continue antiplatelet #Severe peripheral edema Elevated d-dimer Venous duplex lower extremities negative for DVT 2 His respiratory status is improving, we will consider VQ scan Objective - Vital Signs Vital signs: Vital Signs Temp 98.7 F 11/24/21 11:36 Pulse 79 11/24/21 11:36 Resp 19 11/24/21 11:36 BP 151/72 11/24/21 11:36 Pulse Ox 94 L 11/24/21 11:36 Intake & Output 11/23/21 11/24/2122 18:59 06:59 18:59 Intake Total 970 520 340 Output Total 722 1350 615 Balance 248 -830 -275 Weight 117.4 kg Intake: Intake, IV Titration 250 160 100 Amount Ampicillin-Sulbactam 3 gm 200 100 100 In Sodium Chloride 0.9% 100 ml @ 200 mls/hr IVPB Q8HR [facility] Rx#:[id number] DAPTOmycin 500 mg In 50 Sodium Chloride 0.9% 50 ml @ 100 mls/hr IVPB Q24H [facility] Rx#:[id number] Lactated Ringers 1,000 ml 60 @ 20 mls/hr IV .Q24H [facility] Rx#:[id number] Oral 720 360 240 Output: Urine 720 1350 615 Stool 2 Other: Voiding Method Indwelling Catheter Indwelling Catheter Indwelling Catheter - Labs CBC & Chem 7: 11/24/21 06:04 11/24/21 06:04 Labs: Abnormal Lab Results - Last 24 Hours (Table) 11/23/21 11/23/21 11/24/21 Range/Units 16:44 20:51 06:04 RBC 3.09 L (4.30-5.90) m/uL Hgb 8.7 L (13.0-17.5) gm/dL Hct 28.3 L (39.0-53.0) % MCHC 30.8 L (31.0-37.0) g/dL Chloride (98-107) mmol/L BUN (9-20) mg/dL Creatinine (0.66-1.25) mg/dL Glucose (74-99) mg/dL POC Glucose (mg/dL) 233 H 233 H (75-99) mg/dL Calcium (8.4-10.2) mg/dL 11/24/21 11/24/21 11/24/21 Range/Units 06:04 06:56 12:01 RBC (4.30-5.90) m/uL Hgb (13.0-17.5) gm/dL Hct (39.0-53.0) % MCHC (31.0-37.0) g/dL Chloride 109 H (98-107) mmol/L BUN 56 H (9-20) mg/dL Creatinine 2.37 H (0.66-1.25) mg/dL Glucose 158 H (74-99) mg/dL POC Glucose (mg/dL) 170 H 154 H (75-99) mg/dL Calcium 8.1 L (8.4-10.2) mg/dL
--- NOTE | 2021-11-24 13:02 | P.PN ---
Subjective Progress Note Date: 11/24/21 Principal diagnosis: 61-year-old male seen in consultation Acute kidney injury secondary to cardiorenal syndrome. Currently improving, on BiPAP He is known with previous left BKA chronic edema history of anemia secondary to CK D likely diabetic nephropathy. Also had urinary retention with Poole catheter in 24-hour output is 2071 and intake 1490. Vital signs unremarkable. Breathing much better Objective - Vital Signs Vital signs: Vital Signs Temp 98.7 F 11/24/21 11:36 Pulse 79 11/24/21 11:36 Resp 19 11/24/21 11:36 BP 151/72 11/24/21 11:36 Pulse Ox 94 L 11/24/21 11:36 Intake & Output 11/23/21 11/24/21 11/24/21 18:59 06:59 18:59 Intake Total 970 520 340 Output Total 722 1350 615 Balance 248 -020 -275 Weight 117.4 kg Intake: Intake, IV Titration 250 160 100 Amount Ampicillin-Sulbactam 3 gm 200 100 100 In Sodium Chloride 0.9% 100 ml @ 200 mls/hr IVPB Q8HR [facility] Rx#:[id number] DAPTOmycin 500 mg In 50 Sodium Chloride 0.9% 50 ml @ 100 mls/hr IVPB Q24H [facility] Rx#:[id number] Lactated Ringers 1,000 ml 60 @ 20 mls/hr IV .Q24H [facility] Rx#:[id number] Oral 720 360 240 Output: Urine 720 1350 615 Stool 2 Other: Voiding Method Indwelling Catheter Indwelling Catheter Indwelling Catheter On examining currently he is on BiPAP J to be not seen Supple no facial asymmetry Lungs are significant for diminished breath sounds with prolonged expiration Heart sounds unremarkable for any murmur rub gallop Abdomen soft nontender Extremity exam was left BKA bilateral edema of both lower extremities. Neurologically awake alert oriented - Labs CBC & Chem 7: 11/24/21 06:04 11/24/21 06:04 Labs: Abnormal Lab Results - Last 24 Hours (Table) 11/23/21 11/23/21 11/24/21 Range/Units 16:44 20:51 06:04 RBC 3.09 L (4.30-5.90) m/uL Hgb 8.7 L (13.0-17.5) gm/dL Hct 28.3 L (39.0-53.0) % MCHC 30.8 L (31.0-37.0) g/dL Chloride (98-107) mmol/L BUN (9-20) mg/dL Creatinine (0.66-1.25) mg/dL Glucose (74-99) mg/dL POC Glucose (mg/dL) 233 H 233 H (75-99) mg/dL Calcium (8.4-10.2) mg/dL 11/24/21 11/24/21 11/24/21 Range/Units 06:04 06:56 12:01 RBC (4.30-5.90) m/uL Hgb (13.0-17.5) gm/dL Hct (39.0-53.0) % MCHC (31.0-37.0) g/dL Chloride 109 H (98-107) mmol/L BUN 56 H (9-20) mg/dL Creatinine 2.37 H (0.66-1.25) mg/dL Glucose 158 H (74-99) mg/dL POC Glucose (mg/dL) 170 H 154 H (75-99) mg/dL Calcium 8.1 L (8.4-10.2) mg/dL Assessment and Plan Assessment: Impression 1. Acute kidney injury secondary to cardiorenal syndrome, responding to diuretics with creatinine coming down from a peak of 2.69-2.37. Urine output is also fair 2. Outlet obstruction Poole catheter in. 3. Remains on BiPAP 4. Chronic kidney disease likely but no prior creatinines thereof phosphorus 1 on admission is 1.68 dated 11/09/2021, 2+ glucose and 3+ proteinuria not quantified. 5. Sleep apnea with high pCO2 6. Possible osteomyelitis right diabetic foot with the right heel wound and peripheral vascular disease 7. Anemia of chronic kidney disease with iron deficiency and has revealed 13% on 11/13/2021 Recommendation 1. Increase Bumex to 2 mg twice a day IV 2. Monitor labs intake and output and blood pressure
[2021-11-24] MEDS: BUMETANIDE 0.25 MG/ML 10 ML VIAL IV SCH ×2 (14:59→17:01)
[2021-11-24 16:36] LABS: Glucose,Whole Blood 171 mg/dL (75-99)
[2021-11-24] MEDS: IPRATROPIUM-ALBUTEROL 3 ML NEB INHALATION PRN (16:43)
[2021-11-24 16:46] LABS: ABG Base Excess 1.1 mmol/L; ABG HCO3 27 mmol/L (21-25); ABG Oxygen Saturation 86.4 % (94-97); ABG PCO2 53 mmHg (35-45); ABG PH 7.32 (7.35-7.45); ABG TCO2 29 mmol/L (19-24); Allen Test Performed? Yes
[2021-11-24 16:50] LABS: ABG PO2 56 mmHg (83-108)
[2021-11-24] MEDS: methylPREDNISolone SOD SUCCI 125 MG/2 ML VIAL IV SCH ×2 (16:53→19:06)
[2021-11-24] MEDS ORDERED: BUMETANIDE 0.25 MG/ML 4 ML VIAL IVP STA (16:55)
--- NOTE | 2021-11-24 17:06 | XR ---
EXAMINATION TYPE: XR chest 1V portable DATE OF EXAM: 11/24/2021 COMPARISON: 11/22/2021 HISTORY: Short of breath TECHNIQUE: FINDINGS: There is some pulmonary interstitial and airspace edema. There is right-sided central venou s catheter with tip in the superior vena cava. There is possible tracheostomy tube that should be cor related with the surgical history. There are chest leads. IMPRESSION: Patchy pulmonary edema is increased compared to last exam and could be developing RDS. Ri ght pleural effusion increased.
--- NOTE | 2021-11-24 17:11 | P.PN ---
Progress Note - Text Progress Note Date: 11/24/21 Situation: Called to patient bedside due to tachypnea, respiratory distress, hypoxia Background: 61-year-old man who presented for sepsis secondary to right lower extremity osteomyelitis related to diabetes, subsequently had Hospital course complicated by acute hypoxemic and hypercarbic respiratory failure warranting ICU admission and rescue BiPAP. Patient had improved on the ICU with diuretics, BiPAP, antibiotics for presumed aspiration pneumonia. This morning, patient was assessed and believed to be volume overloaded still, had his Bumex increased. Assessment: Patient is afebrile, 140s over 70s, heart rate in the low 100s, 91-92% with FiO2 50%, 12/6 BiPAP settings. Patient is tachypneic to 50s, using accessory muscles, appears to be in significant distress. He does appear volume overloaded with pitting edema, positive JVD. Diffuse wheezing lung sounds with coarse breath sounds throughout, but present bilateral lungs sounds. Neurologically moving all 4 extremities. Poole catheter is in place with moderate urine output, only 615 mL the last 24 hours. AB.32, pO2 of 56, pCO2 of 53. Chest x-ray: Increased right sided pleural effusion, diffuse vascular prominence consistent with volume overload versus ARDS Response: Acute on chronic hypoxemic and hypercarbic respiratory failure Acute on chronic diastolic heart failure exacerbation Discussed the case with pulmonary station tender Give one-time dose of 3 mg Bumex IV, then continue with increased dose of 2 mg twice a day Added Solu-Medrol Changed when necessary nebulizers to [id number] Given 1 dose of nebulizer during rapid response, with significant improvement Increased patient's BiPAP settings to 16/6, FiO2 of 70% Added procalcitonin to AM labs Added sputum culture Continue to monitor on the floor for 1-2 hours, if persistent distress, then can consider transfer to the ICU; this was discussed with our ICU physician. I spent 32 minutes of critical care time with this patient
[2021-11-24] MEDS: IPRATROPIUM-ALBUTEROL 3 ML NEB INHALATION SCH ×2 (19:38→23:53)
[2021-11-24 20:00] LABS: Glucose,Whole Blood 189 mg/dL (75-99)
--- NOTE | 2021-11-24 21:29 | P.PN ---
Subjective Progress Note Date: 11/24/21 Principal diagnosis: Right heel diabetic wound infection Patient is a 61 year old male with a past medical history significant for left [id number] amputation in this patient with underlying diabetes presenting to the hospital with a nonhealing wound to the right heel and concern for secondary infection, patient did have MRI completed on 11/10/2021 with no evidence of osteomyelitis. The patient is status post surgical debridement of his right heel wound completed on 11/13/2021 with evidence of extension of the wound down to the wound On today's evaluation that is 11/24/2021, the patient remains to be afebrile, patient has been moved out of the ICU however still requiring BiPAP, denies having any chest pain mild cough no abdominal pain, patient however is asking for [place] for pain control Objective - Vital Signs Vital signs: Vital Signs Temp 98.7 F 11/24/21 11:36 Pulse 79 11/24/21 11:36 Resp 19 11/24/21 11:36 BP 151/72 11/24/21 11:36 Pulse Ox 94 L 11/24/21 11:36 Intake & Output 11/23/21 11/24/21 11/24/21 18:59 06:59 18:59 Intake Total 970 520 340 Output Total 722 1350 615 Balance 248 -830 -275 Weight 117.4 kg Intake: Intake, IV Titration 250 160 100 Amount Ampicillin-Sulbactam 3 gm 200 100 100 In Sodium Chloride 0.9% 100 ml @ 200 mls/hr IVPB Q8HR [facility] Rx#:[id number] DAPTOmycin 500 mg In 50 Sodium Chloride 0.9% 50 ml @ 100 mls/hr IVPB Q24H [facility] Rx#:[id number] Lactated Ringers 1,000 ml 60 @ 20 mls/hr IV .Q24H [facility] Rx#:[id number] Oral 720 360 240 Output: Urine 720 1350 615 Stool 2 Other: Voiding Method Indwelling Catheter Indwelling Catheter Indwelling Catheter - Exam GENERAL DESCRIPTION: Middle-aged male lying in bed in no distress RESPIRATORY SYSTEM: Unlabored breathing , decreased breath sounds at bases HEART: S1 S2 regular rate and rhythm , ABDOMEN: Soft , no tenderness EXTREMITIES: Right lateral heel wound did have some slough tissue some surrounding redness no foul-smelling drainage - Labs CBC & Chem 7: 11/24/21 06:04 11/24/21 06:04 Labs: Abnormal Lab Results - Last 24 Hours (Table) 11/23/21 11/23/21 11/24/21 Range/Units 16:44 20:51 06:04 RBC 3.09 L (4.30-5.90) m/uL Hgb 8.7 L (13.0-17.5) gm/dL Hct 28.3 L (39.0-53.0) % MCHC 30.8 L (31.0-37.0) g/dL Chloride (98-107) mmol/L BUN (9-20) mg/dL Creatinine (0.66-1.25) mg/dL Glucose (74-99) mg/dL POC Glucose (mg/dL) 233 H 233 H (75-99) mg/dL Calcium (8.4-10.2) mg/dL 11/24/21 11/24/21 11/24/21 Range/Units 06:04 06:56 12:01 RBC (4.30-5.90) m/uL Hgb (13.0-17.5) gm/dL Hct (39.0-53.0) % MCHC (31.0-37.0) g/dL Chloride 109 H (98-107) mmol/L BUN 56 H (9-20) mg/dL Creatinine 2.37 H (0.66-1.25) mg/dL Glucose 158 H (74-99) mg/dL POC Glucose (mg/dL) 170 H 154 H (75-99) mg/dL Calcium 8.1 L (8.4-10.2) mg/dL Assessment and Plan (1) Decubitus ulcer of foot Current Visit: Yes Status: Acute Code(s): L89.899 - PRESSURE ULCER OF OTHER SITE, UNSPECIFIED STAGE SNOMED Code(s): 2820264652 Plan: 1patient with right lateral heel/foot area diabetic foot ulcer started with debridement of the callus by his rag washer few weeks 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 2 the patient did have surgical debridement with evidence of wound extended down to the board concerning for acute bacterial Osteomyelitis and deep culture has been finalized as MRSA along with Acinetobacter 3patient local wound care to continue with medbernardaoney followed by moist dressing to be changed daily and keep the area off the pressure 4- patient is currently being treated with daptomycin and Unasyn which will be continued and monitored his clinical course closely Time with Patient: Less than 30
[2021-11-25] MEDS: methylPREDNISolone SOD SUCCI 125 MG/2 ML VIAL IV SCH ×4 (00:09→17:50)
[2021-11-25] MEDS: AMPICILLIN-SULBACTAM 3 GM in SODIUM CHLORIDE 0.9% 100 ML IVPB SCH ×3 (01:07→17:34)
[2021-11-25] MEDS: IPRATROPIUM-ALBUTEROL 3 ML NEB INHALATION SCH ×5 (03:20→21:02)
[2021-11-25] MEDS: HYDROcodone/APAP 5-325MG 1 EACH TAB PO PRN ×3 (03:30→20:47)
[2021-11-25] MEDS: HYDROmorphone 0.5 MG/0.5 ML SYRINGE IVP PRN ×2 (04:16→23:31)
[2021-11-25] MEDS: BUMETANIDE 0.25 MG/ML 10 ML VIAL IV SCH ×2 (04:21→17:34)
[2021-11-25] MEDS ORDERED: ONDANSETRON 4 MG/2 ML VIAL IVP PRN (05:13)
[2021-11-25 06:56] LABS: Glucose,Whole Blood 239 mg/dL (75-99)
[2021-11-25] MEDS: hydrALAZINE HCL 25 MG TAB PO SCH ×3 (07:33→20:47)
[2021-11-25] MEDS: carvediloL 12.5 MG TAB PO SCH ×2 (07:33→17:34)
[2021-11-25] MEDS: HEPARIN SODIUM,PORCINE/PF 5,000 UNIT/0.5 ML SYRINGE SQ SCH ×3 (07:33→22:36)
[2021-11-25] MEDS: SODIUM BICARBONATE TAB 650 MG TAB PO SCH (07:33)
[2021-11-25] MEDS: GABAPENTIN 100 MG CAP PO SCH ×2 (07:33→20:47)
[2021-11-25] MEDS: levETIRAcetam 500 MG TAB PO SCH ×2 (07:33→21:49)
[2021-11-25] MEDS: TICAGRELOR 90 MG TAB PO SCH ×2 (07:34→21:49)
[2021-11-25] MEDS: INSULIN ASPART (NovoLOG) 100 UNIT/ML VIAL SQ SCH ×4 (07:34→20:48)
[2021-11-25] MEDS: INSULIN DETEMIR (LEVEMIR) 100 UNIT/ML SYR SQ SCH ×2 (07:34→20:48)
[2021-11-25 09:15] LABS: HCT 28.8 % (39.6-50.0); HGB 8.7 g/dL (13.0-17.0); MCH 27.4 pg (27.0-32.0); MCHC 30.2 g/dL (32.0-37.0); MCV 90.9 fL (80.0-97.0); Mean Platelet Volume 9.8 fL (9.5-12.2); NRBC Per 100 WBC 0 /100 WBCS (0.0-0.0); Platelet Count 247 X 10*3/uL (140-440); RBC 3.17 X 10*6/uL (4.40-5.60); RDW 14.5 % (11.5-14.5); WBC 9.06 X 10*3/uL (4.50-10.00)
[2021-11-25 09:19] LABS: C Reactive Protein 16.3 mg/dL (0.00-0.80); Magnesium 2.6 mg/dL (1.5-2.4)
[2021-11-25 09:30] LABS: African American GFR (CKD) 40.6 (60.0-200.0); Anion Gap 14.3 mmol/L (10.00-18.00); BUN/Creat Ratio 25.05 Ratio (12.00-20.00); Blood Urea Nitrogen 50.1 mg/dL (9.0-27.0); Calcium 8.3 mg/dL (8.7-10.3); Carbon Dioxide 24.8 mmol/L (20.0-27.5); Potassium 4.6 mmol/L (3.5-5.5)
--- NOTE | 2021-11-25 10:01 | P.PN ---
Subjective Progress Note Date: 11/25/21 Principal diagnosis: 61-year-old male seen in consultation Acute kidney injury secondary to cardiorenal syndrome. Currently improving, on BiPAP. Creatinine is improving from a peak of 2.74 to 2. He is known with previous left BKA chronic edema history of anemia secondary to CK D likely diabetic nephropathy. Also had urinary retention with Poole catheter, 24-hour intake is 840 output is 3915. Blood pressure is somewhat high 179/82. Continues to have significant edema feeling much better this morning appetite is fair. Objective - Vital Signs Vital signs: Vital Signs Temp 98.6 F 11/25/21 08:00 Pulse 87 11/25/21 09:36 Resp 26 H 11/25/21 01:52 BP 179/82 11/25/21 08:00 Pulse Ox 96 11/25/21 09:41 Intake & Output 11/24/21 11/25/21 11/25/21 18:59 06:59 18:59 Intake Total 340 500 Output Total 1315 2600 Balance -975 -2100 Intake: Intake, IV Titration 100 100 Amount Ampicillin-Sulbactam 3 gm 100 100 In Sodium Chloride 0.9% 100 ml @ 200 mls/hr IVPB Q8HR [facility] Rx#:[id number] Oral 240 400 Output: Urine 1315 2600 Other: Voiding Method Indwelling Catheter Indwelling Catheter On examination awake alert oriented HEENT exam no JVP neck is supple no facial asymmetry Lungs clear to auscultation good air entry bilaterally Heart sounds unremarkable for any murmur rub gallop Abdomen soft nontender obese Extremity exam left BKA with edema and edema of the right leg. Foot is wrapped in bandages. Neurologically awake alert oriented - Labs CBC & Chem 7: 11/25/21 06:36 11/25/21 06:36 Labs: Abnormal Lab Results - Last 24 Hours (Table) 11/24/21 11/24/21 11/24/21 Range/Units 06:04 12:01 16:34 RBC (4.40-5.60) X 10*6/uL Hgb (13.0-17.0) g/dL Hct (39.6-50.0) % MCHC (32.0-37.0) g/dL ABG pH (7.35-7.45) ABG pCO2 (35-45) mmHg ABG pO2 (83-108) mmHg ABG HCO3 (21-25) mmol/L ABG Total CO2 (19-24) mmol/L ABG O2 Saturation (94-97) % BUN (9.0-27.0) mg/dL Creatinine (0.6-1.5) mg/dL Est GFR (CKD-EPI)AfAm (60.0-200.0) Est GFR (CKD-EPI)NonAf (60.0-200.0) BUN/Creatinine Ratio (12.00-20.00) Ratio Glucose (70-110) mg/dL POC Glucose (mg/dL) 154 H 171 H (75-99) mg/dL Calcium (8.7-10.3) mg/dL Magnesium (1.5-2.4) mg/dL C-Reactive Protein (0.00-0.80) mg/dL Procalcitonin 1.81 H (0.02-0.09) ng/mL 11/24/21 11/24/21 11/25/21 Range/Units 16:43 19:58 06:36 RBC (4.40-5.60) X 10*6/uL Hgb (13.0-17.0) g/dL Hct (39.6-50.0) % MCHC (32.0-37.0) g/dL ABG pH 7.32 L (7.35-7.45) ABG pCO2 53 H (35-45) mmHg ABG pO2 56 L* (83-108) mmHg ABG HCO3 27 H (21-25) mmol/L ABG Total CO2 29 H (19-24) mmol/L ABG O2 Saturation 86.4 L (94-97) % BUN 50.1 H (9.0-27.0) mg/dL Creatinine 2.0 H (0.6-1.5) mg/dL Est GFR (CKD-EPI)AfAm 40.6 L (60.0-200.0) Est GFR (CKD-EPI)NonAf 35.0 L (60.0-200.0) BUN/Creatinine Ratio 25.05 H (12.00-20.00) Ratio Glucose 248 H (70-110) mg/dL POC Glucose (mg/dL) 189 H (75-99) mg/dL Calcium 8.3 L (8.7-10.3) mg/dL Magnesium 2.6 H (1.5-2.4) mg/dL C-Reactive Protein 16.30 H (0.00-0.80) mg/dL Procalcitonin (0.02-0.09) ng/mL 11/25/21 11/25/21 11/25/21 Range/Units 06:36 06:36 06:54 RBC 3.17 L (4.40-5.60) X 10*6/uL Hgb 8.7 L (13.0-17.0) g/dL Hct 28.8 L (39.6-50.0) % MCHC 30.2 L (32.0-37.0) g/dL ABG pH (7.35-7.45) ABG pCO2 (35-45) mmHg ABG pO2 (83-108) mmHg ABG HCO3 (21-25) mmol/L ABG Total CO2 (19-24) mmol/L ABG O2 Saturation (94-97) % BUN (9.0-27.0) mg/dL Creatinine (0.6-1.5) mg/dL Est GFR (CKD-EPI)AfAm (60.0-200.0) Est GFR (CKD-EPI)NonAf (60.0-200.0) BUN/Creatinine Ratio (12.00-20.00) Ratio Glucose (70-110) mg/dL POC Glucose (mg/dL) 239 H (75-99) mg/dL Calcium (8.7-10.3) mg/dL Magnesium (1.5-2.4) mg/dL C-Reactive Protein (0.00-0.80) mg/dL Procalcitonin 1.07 H (0.02-0.09) ng/mL Assessment and Plan Assessment: Impression 1. Acute kidney injury secondary to cardiorenal syndrome, responding to d iuretics with creatinine coming down from a peak of 2.69-2.37, and further to 2 this morning, with significant negative balance on current diuretic regimen. His Bumex was increased to 2 mg twice a day IV yesterday 2. Outlet obstruction Poole catheter in. 3. Remains on BiPAP 4. Chronic kidney disease likely but no prior creatinines except on admission is 1.68 dated 11/09/2021, 2+ glucose and 3+ proteinuria not quantified. 5. Sleep apnea with high pCO2 6. Possible osteomyelitis right diabetic foot with the right heel wound and peripheral vascular disease 7. Anemia of chronic kidney disease with iron deficiency and has revealed 13% on 11/13/2021 Recommendation 1. Will give him Ferrlecit 125 daily 3. 2. Continue Bumex to 2 mg twice a day IV 3. Monitor labs intake and output and blood pressure
--- NOTE | 2021-11-25 11:10 | P.PN ---
Subjective Progress Note Date: 11/25/21 No new complaints today. Pt stepped down to floor from ICU. Remains on BIPAP intermittently. Gen: awake, alert HEENT: normocephalic, atraumatic, good hearing acuity, moist mucous membranes Resp: good air exchange, breathing comfortably with no accessory muscle use CVS: good distal perfusion x 4, GI: soft, NTTP, ND : no SPT, no CVAT, he catheter not present MSK: + pitting edema, no clubbing Neuro: non-focal, moving all extremities Psych: cooperative, euthymic mood Assessment/Plan: #Acute respiratory distress with alteration in mental status, encephalopathy #Acute on chronic hypoxic and hypercarbic respiratory failure likely due to underlying COPD/emphysema, obesity sleep apnea, medications ABG showed severe hypercarbic respiratory failure with pH of 7.1 and pCO2 of 79 Improving with BiPAP Chest x-ray no significant changes previous chest x-ray Continue with supplemental oxygen and BiPAP when necessary Bumex, breathing treatments, systemic steroids Discontinued Neurontin and morphine, may continue low-dose Percocet when necessary, will decrease the frequency Discussed with pulmonary service #Right diabetic foot infection with right heel wound with osteomyelitis in the setting of peripheral arterial disease Status post incision and drainage Vascular surgery following Plan for IV antibiotics via PICC line for 6 weeks: Daptomycin and Unasyn Infectious disease following, wound care following De-escalate all his pain medications #Acute on chronic kidney injury #Urinary Retention Likely underlying diabetic nephropathy nephrology currently following Suspect component of neurogenic bladder due to diabetes mellitus Currently with indwelling He catheter, Flomax #Type 2 diabetes mellitus with stress hyperglycemia diabetic neuropathy and nephropathy A1c 8.9 Continue to adjust his insulin, increased Levemir to 20 units twice a day #History of CVA On statin and Brillinta #Severe peripheral vascular disease History of left BKA Vascular surgery following, continue antiplatelet #Severe peripheral edema Elevated d-dimer Venous duplex lower extremities negative for DVT 2 His respiratory status is improving, we will consider VQ scan Objective - Vital Signs Vital signs: Vital Signs Temp 98.6 F 11/25/21 08:00 Pulse 84 11/25/21 09:50 Resp 26 H 11/25/21 01:52 BP 179/82 11/25/21 08:00 Pulse Ox 96 11/25/21 09:41 Intake & Output 11/24/21 11/25/2122 18:59 06:59 18:59 Intake Total 340 500 Output Total 1315 2600 Balance -975 -2100 Intake: Intake, IV Titration 100 100 Amount Ampicillin-Sulbactam 3 gm 100 100 In Sodium Chloride 0.9% 100 ml @ 200 mls/hr IVPB Q8HR [facility] Rx#:[id number] Oral 240 400 Output: Urine 1315 2600 Other: Voiding Method Indwelling Catheter Indwelling Catheter Indwelling Catheter - Labs CBC & Chem 7: 11/25/21 06:36 11/25/21 06:36 Labs: Abnormal Lab Results - Last 24 Hours (Table) 11/24/21 11/24/21 11/24/21 Range/Units 06:04 12:01 16:34 RBC (4.40-5.60) X 10*6/uL Hgb (13.0-17.0) g/dL Hct (39.6-50.0) % MCHC (32.0-37.0) g/dL ABG pH (7.35-7.45) ABG pCO2 (35-45) mmHg ABG pO2 (83-108) mmHg ABG HCO3 (21-25) mmol/L ABG Total CO2 (19-24) mmol/L ABG O2 Saturation (94-97) % BUN (9.0-27.0) mg/dL Creatinine (0.6-1.5) mg/dL Est GFR (CKD-EPI)AfAm (60.0-200.0) Est GFR (CKD-EPI)NonAf (60.0-200.0) BUN/Creatinine Ratio (12.00-20.00) Ratio Glucose (70-110) mg/dL POC Glucose (mg/dL) 154 H 171 H (75-99) mg/dL Calcium (8.7-10.3) mg/dL Magnesium (1.5-2.4) mg/dL C-Reactive Protein (0.00-0.80) mg/dL Procalcitonin 1.81 H (0.02-0.09) ng/mL 11/24/21 11/24/21 11/25/21 Range/Units 16:43 19:58 06:36 RBC (4.40-5.60) X 10*6/uL Hgb (13.0-17.0) g/dL Hct (39.6-50.0) % MCHC (32.0-37.0) g/dL ABG pH 7.32 L (7.35-7.45) ABG pCO2 53 H (35-45) mmHg ABG pO2 56 L* (83-108) mmHg ABG HCO3 27 H (21-25) mmol/L ABG Total CO2 29 H (19-24) mmol/L ABG O2 Saturation 86.4 L (94-97) % BUN 50.1 H (9.0-27.0) mg/dL Creatinine 2.0 H (0.6-1.5) mg/dL Est GFR (CKD-EPI)AfAm 40.6 L (60.0-200.0) Est GFR (CKD-EPI)NonAf 35.0 L (60.0-200.0) BUN/Creatinine Ratio 25.05 H (12.00-20.00) Ratio Glucose 248 H (70-110) mg/dL POC Glucose (mg/dL) 189 H (75-99) mg/dL Calcium 8.3 L (8.7-10.3) mg/dL Magnesium 2.6 H (1.5-2.4) mg/dL C-Reactive Protein 16.30 H (0.00-0.80) mg/dL Procalcitonin (0.02-0.09) ng/mL 11/25/21 11/25/21 11/25/21 Range/Units 06:36 06:36 06:54 RBC 3.17 L (4.40-5.60) X 10*6/uL Hgb 8.7 L (13.0-17.0) g/dL Hct 28.8 L (39.6-50.0) % MCHC 30.2 L (32.0-37.0) g/dL ABG pH (7.35-7.45) ABG pCO2 (35-45) mmHg ABG pO2 (83-108) mmHg ABG HCO3 (21-25) mmol/L ABG Total CO2 (19-24) mmol/L ABG O2 Saturation (94-97) % BUN (9.0-27.0) mg/dL Creatinine (0.6-1.5) mg/dL Est GFR (CKD-EPI)AfAm (60.0-200.0) Est GFR (CKD-EPI)NonAf (60.0-200.0) BUN/Creatinine Ratio (12.00-20.00) Ratio Glucose (70-110) mg/dL POC Glucose (mg/dL) 239 H (75-99) mg/dL Calcium (8.7-10.3) mg/dL Magnesium (1.5-2.4) mg/dL C-Reactive Protein (0.00-0.80) mg/dL Procalcitonin 1.07 H (0.02-0.09) ng/mL
[2021-11-25 11:38] LABS: Glucose,Whole Blood 330 mg/dL (75-99)
[2021-11-25] MEDS: DAPTOmycin 500 MG in SODIUM CHLORIDE 0.9% 50 ML IVPB SCH (11:58)
[2021-11-25] MEDS: SODIUM FERRIC GLUCONAT-SUCROSE 125 MG in SODIUM CHLORIDE 0.9% 100 ML IVPB SCH (12:43)
--- NOTE | 2021-11-25 15:51 | P.PN ---
Subjective Progress Note Date: 11/25/21 This is a 61-year-old male patient who was originally admitted on 11/09/2021 for right foot non-healing ulcer. The patient does have a history of diabetes mellitus, CVA/TIA, seizures, hypertension, below the knee amputation of the left leg. Chronic and ongoing tobacco dependence. He had recently moved here from [place] about 2 weeks ago. MRA of the right foot revealed a cutaneous ulcer defect in the lateral aspect of the calcaneus. There is surrounding edema. Soft tissue edema the foot. No fracture. No evidence of osteomyelitis. Cultures were positive for Citrobacter Disla and MRSA. ID is on the case and he is currently on Unasyn and daptomycin. Earlier today the patient developed a rather acute episode of shortness of breath and hypoxemia and a rapid response team was called. Chest x-ray revealed right-sided PICC line in place. Interstitial changes within the lungs with no evidence of pneumothorax or pleural effusion. He was placed on BiPAP initially 16/6 and 100% FiO2 and arterial blood gases revealed a pO2 of 171, pCO2 of 79, pH 7.14. He was decreased to 60% FiO2. He was transferred to the intensive care unit. He is seen there today in consultation. He is arousable. Follow-up blood gases revealed a pO2 of 97, pCO2 of 55 and a pH of 7.28 on the 60% FiO2. He was given an extra dose of IV Bumex. Initiated on IV Solu-Medrol and continued on DuoNeb inhalations. He is on heparin for DVT prophylaxis. He is currently maintaining O2 saturations in the 90s. He is hemodynamically stable. White count 14.5. Hemoglobin 9.7. Platelets 287. D-dimer was 7.95. Sodium 143. Potassium 5.3. BUN of 36. Creatinine of 2.74. Troponin negative 1. The patient is seen today 11/23/2021 in follow-up in the intensive care unit. He is much more awake and alert. Currently on 5 L high flow nasal cannula with O2 saturation the 90s. He did stay on BiPAP throughout the evening and 16/6 and 40% FiO2. No IV fluids. Repeat Doppler of the lower extremities did not reveal any significant DVT. Right foot wound is positive for MRSA and Acinetobacter Ronit. He remains on daptomycin and Unasyn. Heparin for DVT prophylaxis. White count 8.2. Hemoglobin 8.4. Sodium 140 para potassium 5.3. BUN 48. Creatinine 2.72. Currently in a -720 ML balance. The patient is seen today 11/24/2021 in follow-up in the intensive care unit. He is currently sitting up in bed. Awake and alert in no acute distress. He is maintaining O2 saturations in the 90s on 5 L high flow nasal cannula. He did utilize the BiPAP 12/6 and 40% FiO2 throughout the night. He denies any worsening shortness of breath, cough or congestion. No IV fluids currently. He is continued on bronchodilators, antibiotics in the form of Unasyn and daptomycin. Heparin for DVT prophylaxis. White count 10.1. Hemoglobin 8.7. Platelets 249. Sodium 141. Potassium 4.8. BUN 56. Creatinine 2.37. Remains in a negative balance of 582 ML's. Continued on Bumex 1 mg IV every 12 hours. The patient is seen today 11/25/2021 in follow-up on the regular medical floor. He is currently sitting up in a chair at the bedside. Awake and alert in no acute distress. Last night he had a bit of anxiety and was placed back on the BiPAP 16/6 and 60% FiO2. Arterial blood gases on 50% FiO2 revealed a pO2 of 56, pCO2 53, pH 7.32. He is on 6 L high flow nasal cannula currently. He has been slow to progress. Chest x-ray continued shows pulmonary interstitial and airspace edema. White count 9.0. Hemoglobin 8.7. Platelets 247. Sodium 144. Potassium 4.6. BUN 50. Creatinine 2.0. Glucose 248. Pro-calcitonin 1.07. He is continued on daptomycin and Unasyn per ID services. Continue bronchodila tors. Heparin for DVT prophylaxis. Objective - Vital Signs Vital signs: Vital Signs Temp 98.4 F 11/25/21 14:00 Pulse 80 11/25/21 14:00 Resp 26 H 11/25/21 01:52 BP 154/71 11/25/21 14:00 Pulse Ox 95 11/25/21 14:00 Intake & Output 11/24/21 11/25/21 11/25/21 18:59 06:59 18:59 Intake Total 340 500 Output Total 1315 2600 Balance -975 -2100 Intake: Intake, IV Titration 100 100 Amount Ampicillin-Sulbactam 3 gm 100 100 In Sodium Chloride 0.9% 100 ml @ 200 mls/hr IVPB Q8HR [facility] Rx#:[id number] Oral 240 400 Output: Urine 1315 2600 Other: Voiding Method Indwelling Catheter Indwelling Catheter Indwelling Catheter - Exam GENERAL EXAM: Awake, alert 61-year-old male patient, up in a chair at the [facility], on 6 L high flow nasal cannula alternating with BiPAP 16/6 and 60% FiO2 comfortable in no apparent distress. HEAD: Normocephalic. EYES: Normal reaction of pupils, equal size. NOSE: Clear with pink turbinates. THROAT: No erythema or exudates. NECK: No masses, no JVD. CHEST: No chest wall deformity. LUNGS: Equal air entry with crackles in the posterior bases, diminished. CVS: S1 and S2 normal with no audible murmur, regular rhythm. ABDOMEN: No hepatosplenomegaly, normal bowel sounds, no guarding or rigidity. SPINE: No scoliosis or deformity SKIN: No rashes CENTRAL NERVOUS SYSTEM: No focal deficits, tone is normal in all 4 extremities. EXTREMITIES: Left below the knee amputation. Dressing to the right foot dry and intact. No clubbing, no cyanosis. Peripheral pulses are intact. - Labs CBC & Chem 7: 11/25/21 06:36 11/25/21 06:36 Labs: Abnormal Lab Results - Last 24 Hours (Table) 11/24/21 11/24/21 11/24/21 Range/Units 06:04 16:34 16:43 RBC (4.40-5.60) X 10*6/uL Hgb (13.0-17.0) g/dL Hct (39.6-50.0) % MCHC (32.0-37.0) g/dL ABG pH 7.32 L (7.35-7.45) ABG pCO2 53 H (35-45) mmHg ABG pO2 56 L* (83-108) mmHg ABG HCO3 27 H (21-25) mmol/L ABG Total CO2 29 H (19-24) mmol/L ABG O2 Saturation 86.4 L (94-97) % BUN (9.0-27.0) mg/dL Creatinine (0.6-1.5) mg/dL Est GFR (CKD-EPI)AfAm (60.0-200.0) Est GFR (CKD-EPI)NonAf (60.0-200.0) BUN/Creatinine Ratio (12.00-20.00) Ratio Glucose (70-110) mg/dL POC Glucose (mg/dL) 171 H (75-99) mg/dL Calcium (8.7-10.3) mg/dL Magnesium (1.5-2.4) mg/dL C-Reactive Protein (0.00-0.80) mg/dL Procalcitonin 1.81 H (0.02-0.09) ng/mL 11/24/21 11/25/21 11/25/21 Range/Units 19:58 06:36 06:36 RBC 3.17 L (4.40-5.60) X 10*6/uL Hgb 8.7 L (13.0-17.0) g/dL Hct 28.8 L (39.6-50.0) % MCHC 30.2 L (32.0-37.0) g/dL ABG pH (7.35-7.45) ABG pCO2 (35-45) mmHg ABG pO2 (83-108) mmHg ABG HCO3 (21-25) mmol/L ABG Total CO2 (19-24) mmol/L ABG O2 Saturation (94-97) % BUN 50.1 H (9.0-27.0) mg/dL Creatinine 2.0 H (0.6-1.5) mg/dL Est GFR (CKD-EPI)AfAm 40.6 L (60.0-200.0) Est GFR (CKD-EPI)NonAf 35.0 L (60.0-200.0) BUN/Creatinine Ratio 25.05 H (12.00-20.00) Ratio Glucose 248 H (70-110) mg/dL POC Glucose (mg/dL) 189 H (75-99) mg/dL Calcium 8.3 L (8.7-10.3) mg/dL Magnesium 2.6 H (1.5-2.4) mg/dL C-Reactive Protein 16.30 H (0.00-0.80) mg/dL Procalcitonin (0.02-0.09) ng/mL 11/25/21 11/25/21 11/25/21 Range/Units 06:36 06:54 11:36 RBC (4.40-5.60) X 10*6/uL Hgb (13.0-17.0) g/dL Hct (39.6-50.0) % MCHC (32.0-37.0) g/dL ABG pH (7.35-7.45) ABG pCO2 (35-45) mmHg ABG pO2 (83-108) mmHg ABG HCO3 (21-25) mmol/L ABG Total CO2 (19-24) mmol/L ABG O2 Saturation (94-97) % BUN (9.0-27.0) mg/dL Creatinine (0.6-1.5) mg/dL Est GFR (CKD-EPI)AfAm (60.0-200.0) Est GFR (CKD-EPI)NonAf (60.0-200.0) BUN/Creatinine Ratio (12.00-20.00) Ratio Glucose (70-110) mg/dL POC Glucose (mg/dL) 239 H 330 H (75-99) mg/dL Calcium (8.7-10.3) mg/dL Magnesium (1.5-2.4) mg/dL C-Reactive Protein (0.00-0.80) mg/dL Procalcitonin 1.07 H (0.02-0.09) ng/mL Assessment and Plan Assessment: 1 Acute hypoxemic respiratory failure secondary to suspected fluid volume overload and atelectasis. Elevated d-dimer. Doppler of the lower extremities negative for DVT 2 Nonhealing ulcer of the right heel with debridement on 11/15/2021. Cultures positive for MRSA and Acinetobacter ronit currently on Unasyn and daptomycin 3 Acute renal failure with current creatinine 2.72 4 Diabetes mellitus type 2 5 Diabetic neuropathy 6 Peripheral vascular disease with previous left below the knee amputation 7 Chronic and ongoing tobacco dependence 8 Hypertension 9 History of seizures Plan: The patient was seen and evaluated Chest x-ray, medication and labs reviewed Currently on 6 L high flow nasal cannula Alternating with BiPAP 16/6 and 60% FiO2 Remains on bronchodilators Currently on daptomycin and Unasyn Titrate down the FiO2 as tolerated Increase his activity as tolerated We will continue to follow I have personally seen and examined the patient, performed the documentation and the assessment and plan as written. Number of minutes spent on the visit: 10.
[2021-11-25 16:41] LABS: Glucose,Whole Blood 369 mg/dL (75-99)
[2021-11-25 20:11] LABS: Glucose,Whole Blood 333 mg/dL (75-99)
--- NOTE | 2021-11-25 21:48 | P.PN ---
Subjective Progress Note Date: 11/25/21 Principal diagnosis: Right heel diabetic wound infection Patient is a 61 year old male with a past medical history significant for left [id number] amputation in this patient with underlying diabetes presenting to the hospital with a nonhealing wound to the right heel and concern for secondary infection, patient did have MRI completed on 11/10/2021 with no evidence of osteomyelitis. The patient is status post surgical debridement of his right heel wound completed on 11/13/2021 with evidence of extension of the wound down to the wound On today's evaluation that is 11/25/2021, the patient is afebrile, patient is breathing comfortably on a 6 L nasal cannula, the patient denies having any chest pain mild cough no abdominal pain, and no diarrhea has been reported Objective - Vital Signs Vital signs: Vital Signs Temp 98.6 F 11/25/21 08:00 Pulse 80 11/25/21 13:08 Resp 26 H 11/25/21 01:52 BP 179/82 11/25/21 08:00 Pulse Ox 96 11/25/21 09:41 Intake & Output 11/24/21 11/25/21 11/25/21 18:59 06:59 18:59 Intake Total 340 500 Output Total 1315 2600 Balance -975 -2100 Intake: Intake, IV Titration 100 100 Amount Ampicillin-Sulbactam 3 gm 100 100 In Sodium Chloride 0.9% 100 ml @ 200 mls/hr IVPB Q8HR [facility] Rx#:[id number] Oral 240 400 Output: Urine 1315 2600 Other: Voiding Method Indwelling Catheter Indwelling Catheter Indwelling Catheter - Exam GENERAL DESCRIPTION: Middle-aged male lying in bed in no distress RESPIRATORY SYSTEM: Unlabored breathing , decreased breath sounds at bases HEART: S1 S2 regular rate and rhythm , ABDOMEN: Soft , no tenderness EXTREMITIES: Right lateral heel wound did have some slough tissue some surrounding redness no foul-smelling drainage - Labs CBC & Chem 7: 11/25/21 06:36 11/25/21 06:36 Labs: Abnormal Lab Results - Last 24 Hours (Table) 11/24/21 11/24/21 11/24/21 Range/Units 06:04 16:34 16:43 RBC (4.40-5.60) X 10*6/uL Hgb (13.0-17.0) g/dL Hct (39.6-50.0) % MCHC (32.0-37.0) g/dL ABG pH 7.32 L (7.35-7.45) ABG pCO2 53 H (35-45) mmHg ABG pO2 56 L* (83-108) mmHg ABG HCO3 27 H (21-25) mmol/L ABG Total CO2 29 H (19-24) mmol/L ABG O2 Saturation 86.4 L (94-97) % BUN (9.0-27.0) mg/dL Creatinine (0.6-1.5) mg/dL Est GFR (CKD-EPI)AfAm (60.0-200.0) Est GFR (CKD-EPI)NonAf (60.0-200.0) BUN/Creatinine Ratio (12.00-20.00) Ratio Glucose (70-110) mg/dL POC Glucose (mg/dL) 171 H (75-99) mg/dL Calcium (8.7-10.3) mg/dL Magnesium (1.5-2.4) mg/dL C-Reactive Protein (0.00-0.80) mg/dL Procalcitonin 1.81 H (0.02-0.09) ng/mL 11/24/21 11/25/21 11/25/21 Range/Units 19:58 06:36 06:36 RBC 3.17 L (4.40-5.60) X 10*6/uL Hgb 8.7 L (13.0-17.0) g/dL Hct 28.8 L (39.6-50.0) % MCHC 30.2 L (32.0-37.0) g/dL ABG pH (7.35-7.45) ABG pCO2 (35-45) mmHg ABG pO2 (83-108) mmHg ABG HCO3 (21-25) mmol/L ABG Total CO2 (19-24) mmol/L ABG O2 Saturation (94-97) % BUN 50.1 H (9.0-27.0) mg/dL Creatinine 2.0 H (0.6-1.5) mg/dL Est GFR (CKD-EPI)AfAm 40.6 L (60.0-200.0) Est GFR (CKD-EPI)NonAf 35.0 L (60.0-200.0) BUN/Creatinine Ratio 25.05 H (12.00-20.00) Ratio Glucose 248 H (70-110) mg/dL POC Glucose (mg/dL) 189 H (75-99) mg/dL Calcium 8.3 L (8.7-10.3) mg/dL Magnesium 2.6 H (1.5-2.4) mg/dL C-Reactive Protein 16.30 H (0.00-0.80) mg/dL Procalcitonin (0.02-0.09) ng/mL 11/25/21 11/25/21 11/25/21 Range/Units 06:36 06:54 11:36 RBC (4.40-5.60) X 10*6/uL Hgb (13.0-17.0) g/dL Hct (39.6-50.0) % MCHC (32.0-37.0) g/dL ABG pH (7.35-7.45) ABG pCO2 (35-45) mmHg ABG pO2 (83-108) mmHg ABG HCO3 (21-25) mmol/L ABG Total CO2 (19-24) mmol/L ABG O2 Saturation (94-97) % BUN (9.0-27.0) mg/dL Creatinine (0.6-1.5) mg/dL Est GFR (CKD-EPI)AfAm (60.0-200.0) Est GFR (CKD-EPI)NonAf (60.0-200.0) BUN/Creatinine Ratio (12.00-20.00) Ratio Glucose (70-110) mg/dL POC Glucose (mg/dL) 239 H 330 H (75-99) mg/dL Calcium (8.7-10.3) mg/dL Magnesium (1.5-2.4) mg/dL C-Reactive Protein (0.00-0.80) mg/dL Procalcitonin 1.07 H (0.02-0.09) ng/mL Assessment and Plan (1) Decubitus ulcer of foot Current Visit: Yes Status: Acute Code(s): L89.899 - PRESSURE ULCER OF OTHER SITE, UNSPECIFIED STAGE SNOMED Code(s): 0920355258 Plan: 1patient with right lateral heel/foot area diabetic foot ulcer started with 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 2 the patient did have surgical debridement with evidence of wound extended down to the board concerning for acute bacterial Osteomyelitis and deep culture has been finalized as MRSA along with Acinetobacter 3patient local wound care to continue with medahoney followed by moist dressing to be changed daily and keep the area off the pressure 4- patient to continue with daptomycin and Unasyn and monitor his clinical course closely Time with Patient: Less than 30
[2021-11-26] MEDS: IPRATROPIUM-ALBUTEROL 3 ML NEB INHALATION SCH ×7 (00:08→23:28)
[2021-11-26] MEDS: AMPICILLIN-SULBACTAM 3 GM in SODIUM CHLORIDE 0.9% 100 ML IVPB SCH ×3 (02:32→17:34)
[2021-11-26] MEDS: HYDROcodone/APAP 5-325MG 1 EACH TAB PO PRN (03:24)
[2021-11-26 10:48] LABS: Glucose,Whole Blood 210 mg/dL (75-99)
[2021-11-26] MEDS: INSULIN ASPART (NovoLOG) 100 UNIT/ML VIAL SQ SCH ×4 (11:09→22:31)
[2021-11-26] MEDS: GABAPENTIN 100 MG CAP PO SCH ×2 (11:09→21:21)
[2021-11-26] MEDS: BUMETANIDE 0.25 MG/ML 10 ML VIAL IV SCH ×2 (11:09→17:33)
[2021-11-26] MEDS: HEPARIN SODIUM,PORCINE/PF 5,000 UNIT/0.5 ML SYRINGE SQ SCH ×2 (11:09→15:00)
[2021-11-26] MEDS: carvediloL 12.5 MG TAB PO SCH ×2 (11:09→17:33)
[2021-11-26] MEDS: INSULIN DETEMIR (LEVEMIR) 100 UNIT/ML SYR SQ SCH ×2 (11:09→22:31)
[2021-11-26 11:56] LABS: Glucose,Whole Blood 286 mg/dL (75-99)
[2021-11-26] MEDS: hydrALAZINE HCL 25 MG TAB PO SCH ×3 (12:10→21:21)
[2021-11-26] MEDS: DAPTOmycin 500 MG in SODIUM CHLORIDE 0.9% 50 ML IVPB SCH (12:11)
[2021-11-26] MEDS: levETIRAcetam 500 MG TAB PO SCH ×2 (12:15→21:21)
[2021-11-26] MEDS: SODIUM FERRIC GLUCONAT-SUCROSE 125 MG in SODIUM CHLORIDE 0.9% 100 ML IVPB SCH ×2 (12:15→14:44)
[2021-11-26] MEDS: SODIUM BICARBONATE TAB 650 MG TAB PO SCH (12:15)
[2021-11-26] MEDS: TICAGRELOR 90 MG TAB PO SCH ×2 (12:15→21:21)
[2021-11-26 12:52] LABS: African American GFR (CKD) 45 (>60 ml/min/1.73 sqM); Anion Gap 7 mmol/L; Blood Urea Nitrogen 52 mg/dL (9-20); Calcium 7.8 mg/dL (8.4-10.2); Carbon Dioxide 30 mmol/L (22-30); Chloride 105 mmol/L (98-107); Glucose 220 mg/dL (74-99); Magnesium 2.6 mg/dL (1.6-2.3); Non-African American GFR(CKD) 39 (>60 ml/min/1.73 sqM); Potassium 4.4 mmol/L (3.5-5.1); Sodium 142 mmol/L (137-145)
--- NOTE | 2021-11-26 12:57 | P.PN ---
Subjective Progress Note Date: 11/26/21 No new complaints today. Pt stepped down to floor from ICU. Remains on BIPAP intermittently. Gen: awake, alert HEENT: normocephalic, atraumatic, good hearing acuity, moist mucous membranes Resp: good air exchange, breathing comfortably with no accessory muscle use CVS: good distal perfusion x 4, GI: soft, NTTP, ND : no SPT, no CVAT, he catheter not present MSK: + pitting edema, no clubbing Neuro: non-focal, moving all extremities Psych: cooperative, euthymic mood Assessment/Plan: #Acute respiratory distress with alteration in mental status, encephalopathy #Acute on chronic hypoxic and hypercarbic respiratory failure likely due to underlying COPD/emphysema, obesity sleep apnea, medications ABG showed severe hypercarbic respiratory failure with pH of 7.1 and pCO2 of 79 Improving with BiPAP Chest x-ray no significant changes previous chest x-ray Continue with supplemental oxygen and BiPAP when necessary Bumex, breathing treatments, systemic steroids Discontinued Neurontin and morphine, may continue low-dose Percocet when necessary, will decrease the frequency Discussed with pulmonary service #Right diabetic foot infection with right heel wound with osteomyelitis in the setting of peripheral arterial disease Status post incision and drainage Vascular surgery following Plan for IV antibiotics via PICC line for 6 weeks: Daptomycin and Unasyn Infectious disease following, wound care following De-escalate all his pain medications #Acute on chronic kidney injury #Urinary Retention Likely underlying diabetic nephropathy nephrology currently following Suspect component of neurogenic bladder due to diabetes mellitus Currently with indwelling He catheter, Flomax #Type 2 diabetes mellitus with stress hyperglycemia diabetic neuropathy and nephropathy A1c 8.9 Continue to adjust his insulin, increased Levemir to 20 units twice a day #History of CVA On statin and Brillinta #Severe peripheral vascular disease History of left BKA Vascular surgery following, continue antiplatelet #Severe peripheral edema Elevated d-dimer Venous duplex lower extremities negative for DVT 2 His respiratory status is improving, we will consider VQ scan Objective - Vital Signs Vital signs: Vital Signs Temp 98.2 F 11/26/21 02:00 Pulse 76 11/26/21 05:10 Resp 20 11/26/21 02:00 BP 135/66 11/26/21 02:00 Pulse Ox 98 11/26/21 02:00 Intake & Output 11/25/21 11/26/21 11/26/21 18:59 06:59 18:59 Output Total 850 1000 Balance -850 -1000 Output: Urine 850 1000 Other: Voiding Method Indwelling Catheter - Labs CBC & Chem 7: 11/25/21 06:36 11/26/21 05:10 Labs: Abnormal Lab Results - Last 24 Hours (Table) 11/25/21 11/25/21 11/26/21 Range/Units 16:39 20:09 05:10 BUN 52 H (9-20) mg/dL Creatinine 1.82 H (0.66-1.25) mg/dL Glucose 220 H (74-99) mg/dL POC Glucose (mg/dL) 369 H 333 H (75-99) mg/dL Calcium 7.8 L (8.4-10.2) mg/dL Magnesium 2.6 H (1.6-2.3) mg/dL 11/26/21 11/26/21 Range/Units 07:01 11:55 BUN (9-20) mg/dL Creatinine (0.66-1.25) mg/dL Glucose (74-99) mg/dL POC Glucose (mg/dL) 210 H 286 H (75-99) mg/dL Calcium (8.4-10.2) mg/dL Magnesium (1.6-2.3) mg/dL Microbiology - Last 24 Hours (Table) 11/24/21 21:48 Blood Culture - Preliminary Blood No Growth after 24 hours
[2021-11-26] MEDS: BENZOCAINE/MENTHOL LOZENG 1 EACH LOZENGE MUCOUS MEM PRN (13:12)
[2021-11-26 13:16] LABS: Basophils % (A) 0 %; Eosinophils % (A) 0 %; HGB 8.8 gm/dL (13.0-17.5); Hypochromasia Moderate; Lymphocytes # (A) 0.8 k/uL (1.0-4.8); Lymphocytes % (A) 10 %; MCH 28.9 pg (25.0-35.0); MCHC 31.3 g/dL (31.0-37.0); MCV 92.3 fL (80.0-100.0); Mean Platelet Volume 8.1; Monocytes # (A) 0.8 k/uL (0-1.0); Monocytes % (A) 10 %; Neutrophils # (A) 6.2 k/uL (1.3-7.7); Neutrophils % (A) 78 %; Platelet Count 264 k/uL (150-450); RBC 3.04 m/uL (4.30-5.90); RDW 15.2 % (11.5-15.5); WBC 7.9 k/uL (3.8-10.6)
--- NOTE | 2021-11-26 13:24 | P.PN ---
Subjective Patient is seen in follow for acute kidney injury. Renal function better. Maintained on IV Bumex. Nonoliguric. Oral intake is good. No vomiting or diarrhea. Denies chest pain or shortness of breath. Hemodynamically stable. Vital signs are stable. General: Awake and alert. No acute distress. HEENT: Head exam is unremarkable. LUNGS: Breath sounds decreased. HEART: Rate and Rhythm are regular. ABDOMEN: Soft, obese. EXTREMITITES: BKA noted. Right foot wrapped. No drainage. Chronic changes noted. Objective - Vital Signs Vital signs: Vital Signs Temp 98.2 F 11/26/21 02:00 Pulse 76 11/26/21 05:10 Resp 20 11/26/21 02:00 BP 135/66 11/26/21 02:00 Pulse Ox 98 11/26/21 02:00 Intake & Output 11/25/21 11/26/21 11/26/21 18:59 06:59 18:59 Output Total 850 1000 Balance -850 -1000 Output: Urine 850 1000 Other: Voiding Method Indwelling Catheter - Labs CBC & Chem 7: 11/26/21 05:10 11/26/21 05:10 Labs: Abnormal Lab Results - Last 24 Hours (Table) 11/25/21 11/25/21 11/26/21 Range/Units 16:39 20:09 05:10 RBC 3.04 L (4.30-5.90) m/uL Hgb 8.8 L (13.0-17.5) gm/dL Hct 28.0 L (39.0-53.0) % Lymphocytes # 0.8 L (1.0-4.8) k/uL BUN (9-20) mg/dL Creatinine (0.66-1.25) mg/dL Glucose (74-99) mg/dL POC Glucose (mg/dL) 369 H 333 H (75-99) mg/dL Calcium (8.4-10.2) mg/dL Magnesium (1.6-2.3) mg/dL 11/26/21 11/26/21 11/26/21 Range/Units 05:10 07:01 11:55 RBC (4.30-5.90) m/uL Hgb (13.0-17.5) gm/dL Hct (39.0-53.0) % Lymphocytes # (1.0-4.8) k/uL BUN 52 H (9-20) mg/dL Creatinine 1.82 H (0.66-1.25) mg/dL Glucose 220 H (74-99) mg/dL POC Glucose (mg/dL) 210 H 286 H (75-99) mg/dL Calcium 7.8 L (8.4-10.2) mg/dL Magnesium 2.6 H (1.6-2.3) mg/dL Microbiology - Last 24 Hours (Table) 11/24/21 21:48 Blood Culture - Preliminary Blood No Growth after 24 hours Assessment and Plan Plan: Assessment: 1. Acute kidney injury mostly prerenal secondary to cardiorenal syndrome and infection. Renal function a little better today. Creatinine 1.82. Unknown baseline renal function. Etiology is likely diabetic kidney disease. Kidney ultrasound showed no evidence of hydronephrosis. 2. Right foot nonhealing wound. Status post debridement 11/13/2021. Vascular surgery and infectious disease following. Wound culture positive for Acinetobacter and MRSA. 3. Status post left BKA. 4. Diabetes mellitus. 5. Anemia. Currently receiving IV iron. No active bleeding. 6. Benign hypertension. Stable. 7. Metabolic acidosis secondary to acute kidney injury and IV fluids. On oral bicarbonate. Resolved. 8. Volume overload. Improving with diuresis. 9. Urinary retention. Currently has a Poole catheter. Plan: Maintain IV Bumex. Add Aranesp. Add Flomax. Stop bicarb. Avoid nephrotoxins. Encourage oral intake. 1500 mL fluid restriction. Continue to monitor renal function and urine output. Discussed with the patient that he will need to follow-up outpatient to establish CKD care and for further workup of proteinuria.
--- NOTE | 2021-11-26 13:28 | P.PN ---
Subjective Progress Note Date: 11/26/21 Principal diagnosis: Shortness of breath This is a 61-year-old male patient who was originally admitted on 11/09/2021 for right foot non-healing ulcer. The patient does have a history of diabetes mellitus, CVA/TIA, seizures, hypertension, below the knee amputation of the left leg. Chronic and ongoing tobacco dependence. He had recently moved here from [place] about 2 weeks ago. MRA of the right foot revealed a cutaneous ulcer defect in the lateral aspect of the calcaneus. There is surrounding edema. Soft tissue edema the foot. No fracture. No evidence of osteomyelitis. Cultures were positive for Citrobacter Disla and MRSA. ID is on the case and he is currently on Unasyn and daptomycin. Earlier today the patient developed a rather acute episode of shortness of breath and hypoxemia and a rapid response team was called. Chest x-ray revealed right-sided PICC line in place. Interstitial changes within the lungs with no evidence of pneumothorax or pleu ral effusion. He was placed on BiPAP initially 16/6 and 100% FiO2 and arterial blood gases revealed a pO2 of 171, pCO2 of 79, pH 7.14. He was decreased to 60% FiO2. He was transferred to the intensive care unit. He is seen there today in consultation. He is arousable. Follow-up blood gases revealed a pO2 of 97, pCO2 of 55 and a pH of 7.28 on the 60% FiO2. He was given an extra dose of IV Bumex. Initiated on IV Solu-Medrol and continued on DuoNeb inhalations. He is on heparin for DVT prophylaxis. He is currently maintaining O2 saturations in the 90s. He is hemodynamically stable. White count 14.5. Hemoglobin 9.7. Platelets 287. D-dimer was 7.95. Sodium 143. Potassium 5.3. BUN of 36. Creatinine of 2.74. Troponin negative 1. The patient is seen today 11/23/2021 in follow-up in the intensive care unit. He is much more awake and alert. Currently on 5 L high flow nasal cannula with O2 saturation the 90s. He did stay on BiPAP throughout the evening and 16/6 and 40% FiO2. No IV fluids. Repeat Doppler of the lower extremities did not reveal any significant DVT. Right foot wound is positive for MRSA and Acinetobacter Ronit. He remains on daptomycin and Unasyn. Heparin for DVT prophylaxis. White count 8.2. Hemoglobin 8.4. Sodium 140 para potassium 5.3. BUN 48. Creatinine 2.72. Currently in a -720 ML balance. The patient is seen today 11/24/2021 in follow-up in the intensive care unit. He is currently sitting up in bed. Awake and alert in no acute distress. He is maintaining O2 saturations in the 90s on 5 L high flow nasal cannula. He did utilize the BiPAP 12/6 and 40% FiO2 throughout the night. He denies any worsening shortness of breath, cough or congestion. No IV fluids currently. He is continued on bronchodilators, antibiotics in the form of Unasyn and daptomycin. Heparin for DVT prophylaxis. White count 10.1. Hemoglobin 8.7. P latelets 249. Sodium 141. Potassium 4.8. BUN 56. Creatinine 2.37. Remains in a negative balance of 582 ML's. Continued on Bumex 1 mg IV every 12 hours. The patient is seen today 11/25/2021 in follow-up on the regular medical floor. He is currently sitting up in a chair at the bedside. Awake and alert in no acute distress. Last night he had a bit of anxiety and was placed back on the BiPAP 16/6 and 60% FiO2. Arterial blood gases on 50% FiO2 revealed a pO2 of 56, pCO2 53, pH 7.32. He is on 6 L high flow nasal cannula currently. He has been slow to progress. Chest x-ray continued shows pulmonary interstitial and airspace edema. White count 9.0. Hemoglobin 8.7. Platelets 247. Sodium 144. Potassium 4.6. BUN 50. Creatinine 2.0. Glucose 248. Pro-calcitonin 1.07. He is continued on daptomycin and Unasyn per ID services. Continue bronchodilators. Heparin for DVT prophylaxis. On 11/26/2021 patient seen in follow-up on medical surgical floor. He is awake and alert, he is sitting up in the recliner, breathing comfortably, he is currently on 6 L of oxygen per nasal cannula, he did wear BiPAP support last night with pressures of 16/6 and FiO2 of 40%, he is on point, saying that over to 20 ML per hour, no other drips, he remains on daptomycin and Unasyn for evidence of MRSA and Acetobacter Bbaumanii on The Nonhealing Ulcer of the Right Heel Status Post Surgical Debridement on 11/15/2021. Last chest x-ray was done on 11/24/2021 point patchy pulmonary edema which was increased compared to his previous chest x-ray and a right pleural effusion which also appeared increased. Patient is currently on IV Bumex at 2 mg every 12 hours, and extensively diuresing, and he is in -3 L and 75 ML over the last 24 hours. No altered mentation, he is answering questions appropriately, seems to breathing comfortably, no complaints of worsening dyspnea cough or chest discomfort. Objective - Vital Signs Vital signs: Vital Signs Temp 98.2 F 11/26/21 02:00 Pulse 76 11/26/21 05:10 Resp 20 11/26/21 02:00 BP 135/66 11/26/21 02:00 Pulse Ox 98 11/26/21 02:00 Intake & Output 11/25/21 11/26/21 11/26/21 18:59 06:59 18:59 Output Total 850 1000 Balance -850 -1000 Output: Urine 850 1000 Other: Voiding Method Indwelling Catheter - Exam GENERAL EXAM: Alert, very pleasant, 61-year-old white male, 6 L of oxygen sitting up in the recliner, in no acute distress, comfortable in no apparent distress. HEAD: Normocephalic/atraumatic. EYES: Normal reaction of pupils, equal size. Conjunctiva pink, sclera white. NOSE: Clear with pink turbinates. THROAT: No erythema or exudates. NECK: No masses, no JVD, no thyroid enlargement, no adenopathy. CHEST: No chest wall deformity. Symmetrical expansion. LUNGS: Equal air entry with no crackles, wheeze, rhonchi or dullness. CVS: Regular rate and rhythm, normal S1 and S2, no gallops, no murmurs, no rubs ABDOMEN: Soft, nontender. No hepatosplenomegaly, normal bowel sounds, no g uarding or rigidity. EXTREMITIES: No clubbing, no edema, no cyanosis, 2+ pulses and upper and lower extremities. Right lower extremity is covered with a surgical dressing, clean dry and intact. MUSCULOSKELETAL: Muscle strength and tone normal. SPINE: No scoliosis or deformity SKIN: No rashes CENTRAL NERVOUS SYSTEM: Alert and oriented -3. No focal deficits, tone is normal in all 4 extremities. PSYCHIATRIC: Alert and oriented -3. Appropriate affect. Intact judgment and insight. - Labs CBC & Chem 7: 11/26/21 05:10 11/26/21 05:10 Labs: Abnormal Lab Results - Last 24 Hours (Table) 11/25/21 11/25/21 11/26/21 Range/Units 16:39 20:09 05:10 RBC 3.04 L (4.30-5.90) m/uL Hgb 8.8 L (13.0-17.5) gm/dL Hct 28.0 L (39.0-53.0) % Lymphocytes # 0.8 L (1.0-4.8) k/uL BUN (9-20) mg/dL Creatinine (0.66-1.25) mg/dL Glucose (74-99) mg/dL POC Glucose (mg/dL) 369 H 333 H (75-99) mg/dL Calcium (8.4-10.2) mg/dL Magnesium (1.6-2.3) mg/dL 11/26/21 11/26/21 11/26/21 Range/Units 05:10 07:01 11:55 RBC (4.30-5.90) m/uL Hgb (13.0-17.5) gm/dL Hct (39.0-53.0) % Lymphocytes # (1.0-4.8) k/uL BUN 52 H (9-20) mg/dL Creatinine 1.82 H (0.66-1.25) mg/dL Glucose 220 H (74-99) mg/dL POC Glucose (mg/dL) 210 H 286 H (75-99) mg/dL Calcium 7.8 L (8.4-10.2) mg/dL Magnesium 2.6 H (1.6-2.3) mg/dL Microbiology - Last 24 Hours (Table) 11/24/21 21:48 Blood Culture - Preliminary Blood No Growth after 24 hours Assessment and Plan Plan: 1 Acute hypoxemic respiratory failure secondary to suspected fluid volume over load and atelectasis. Elevated d-dimer. Doppler of the lower extremities negative for DVT 2 Nonhealing ulcer of the right heel with debridement on 11/15/2021. Cultures positive for MRSA and Acinetobacter ronit currently on Unasyn and daptomycin 3 Acute renal failure with current creatinine 2.72 4 Diabetes mellitus type 2 5 Diabetic neuropathy 6 Peripheral vascular disease with previous left below the knee amputation 7 Chronic and ongoing tobacco dependence 8 Hypertension 9 History of seizures Plan: Continue diuretics Weaning FiO2 BiPAP support as needed only breathing is improving Obtain follow-up chest x-ray tomorrow We will obtain follow-up electrolytes and renal profile tomorrow Antibiotics per ID service recommendations We'll continue to follow I have personally seen and examined the patient, performed the documentation and the assessment and plan as written. Number of minutes spent on the visit: [10] I have personally seen and examined the patient and reviewed the documentation. I performed a joint evaluation with the nurse practitioner in this evaluation was done more than 20 minutes. I fully agree with the documentation above and the plan of care. The patient is stable. The patient is producing adequate amount of urine output. The patient is currently on Unasyn and daptomycin. The creatinine continues to improve and currently is down to 1.82 with a mean of 52. Respiratory to normal. We'll repeat electrolytes within next 24 hours. BiPAP overnight as needed. Continue weaning down the FiO2. We'll continue to follow Time with Patient: Less than 30
[2021-11-26] MEDS: HYDROmorphone 0.5 MG/0.5 ML SYRINGE IVP PRN ×2 (13:48→17:34)
[2021-11-26] MEDS ORDERED: DARBEPOETIN ALFA 40 MCG/0.4 ML SYRINGE SQ SCH (14:00)
[2021-11-26] MEDS: oxyCODONE-APAP 10-325MG 1 EACH TAB PO PRN ×2 (14:44→18:58)
[2021-11-26 16:53] LABS: Glucose,Whole Blood 212 mg/dL (75-99)
[2021-11-26] MEDS: TAMSULOSIN 0.4 MG CAP.ER.24H PO SCH (18:14)
--- NOTE | 2021-11-26 21:29 | P.PN ---
Subjective Progress Note Date: 11/26/21 Principal diagnosis: Right heel diabetic wound infection Patient is a 61 year old male with a past medical history significant for left [id number] amputation in this patient with underlying diabetes presenting to the hospital with a nonhealing wound to the right heel and concern for secondary infection, patient did have MRI completed on 11/10/2021 with no evidence of osteomyelitis. The patient is status post surgical debridement of his right heel wound completed on 11/13/2021 with evidence of extension of the wound down to the wound On today's evaluation that is 11/26/2021, the patient remains to be afebrile, patient is breathing comfortably on nasal cannula oxygen, the patient denies having any chest pain, the patient did have mild dry cough no abdominal pain, and no diarrhea has been reported Objective - Vital Signs Vital signs: Vital Signs Temp 98.2 F 11/26/21 02:00 Pulse 76 11/26/21 05:10 Resp 20 11/26/21 02:00 BP 135/66 11/26/21 02:00 Pulse Ox 98 11/26/21 02:00 Intake & Output 11/25/21 11/26/21 11/26/21 18:59 06:59 18:59 Output Total 850 1000 Balance -850 -1000 Output: Urine 850 1000 Other: Voiding Method Indwelling Catheter - Exam GENERAL DESCRIPTION: Middle-aged male lying in bed in no distress RESPIRATORY SYSTEM: Unlabored breathing , decreased breath sounds at bases HEART: S1 S2 regular rate and rhythm , ABDOMEN: Soft , no tenderness EXTREMITIES: Right lateral heel wound did have some slough tissue some surrounding redness no foul-smelling drainage - Labs CBC & Chem 7: 11/26/21 05:10 11/26/21 05:10 Labs: Abnormal Lab Results - Last 24 Hours (Table) 11/25/21 11/25/21 11/26/21 Range/Units 16:39 20:09 05:10 BUN 52 H (9-20) mg/dL Creatinine 1.82 H (0.66-1.25) mg/dL Glucose 220 H (74-99) mg/dL POC Glucose (mg/dL) 369 H 333 H (75-99) mg/dL Calcium 7.8 L (8.4-10.2) mg/dL Magnesium 2.6 H (1.6-2.3) mg/dL 11/26/21 11/26/21 Range/Units 07:01 11:55 BUN (9-20) mg/dL Creatinine (0.66-1.25) mg/dL Glucose (74-99) mg/dL POC Glucose (mg/dL) 210 H 286 H (75-99) mg/dL Calcium (8.4-10.2) mg/dL Magnesium (1.6-2.3) mg/dL Microbiology - Last 24 Hours (Table) 11/24/21 21:48 Blood Culture - Preliminary Blood No Growth after 24 hours Assessment and Plan (1) Decubitus ulcer of foot Current Visit: Yes Status: Acute Code(s): L89.899 - PRESSURE ULCER OF OTHER SITE, UNSPECIFIED STAGE SNOMED Code(s): 1636844249 Plan: 1patient with right lateral heel/foot area diabetic foot ulcer started with debridement of the callus by his bailiff few weeks 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 2 the patient did have surgical debridement with evidence of wound extended down to the board concerning for acute bacterial Osteomyelitis and deep culture has been finalized as MRSA along with Acinetobacter 3patient local wound care to continue with medahoney followed by moist dressing to be changed daily and keep the area off the pressure 4- patient is currently being treated with daptomycin and Unasyn which will be continued while waiting for the respiratory status to be stabilized and fpc placement Time with Patient: Less than 30
[2021-11-26] MEDS ORDERED: LORazepam 2 MG/ML INJ IV STA (22:00)
[2021-11-26 22:27] LABS: Glucose,Whole Blood 116 mg/dL (75-99)
[2021-11-27] MEDS: HEPARIN SODIUM,PORCINE/PF 5,000 UNIT/0.5 ML SYRINGE SQ SCH ×4 (00:28→23:05)
[2021-11-27] MEDS: AMPICILLIN-SULBACTAM 3 GM in SODIUM CHLORIDE 0.9% 100 ML IVPB SCH ×3 (01:56→17:16)
[2021-11-27] MEDS: IPRATROPIUM-ALBUTEROL 3 ML NEB INHALATION SCH ×5 (02:52→20:21)
[2021-11-27] MEDS: BUMETANIDE 0.25 MG/ML 10 ML VIAL IV SCH ×2 (05:52→17:16)
[2021-11-27] MEDS: oxyCODONE-APAP 10-325MG 1 EACH TAB PO PRN ×4 (06:00→20:15)
--- NOTE | 2021-11-27 06:41 | XR ---
EXAMINATION TYPE: XR chest 1V portable DATE OF EXAM: 11/27/2021 CLINICAL HISTORY: Difficulty breathing progress study. TECHNIQUE: Single AP portable upright view of the chest is obtained. COMPARISON: Chest x-ray from 3 days earlier and older studies. FINDINGS: Stable right-sided PICC line. Persistent bilateral multifocal and confluent opacities grea test in the mid to lower lungs. Stable cardiomegaly. Osseous structures are intact. IMPRESSION: Cardiomegaly with bilateral multifocal increased opacities remain present. No significant change from most recent study.
[2021-11-27 07:17] LABS: Glucose,Whole Blood 125 mg/dL (75-99)
[2021-11-27] MEDS: INSULIN ASPART (NovoLOG) 100 UNIT/ML VIAL SQ SCH ×4 (07:45→20:21)
[2021-11-27] MEDS: GABAPENTIN 100 MG CAP PO SCH ×2 (07:49→20:14)
[2021-11-27] MEDS: TAMSULOSIN 0.4 MG CAP.ER.24H PO SCH (07:49)
[2021-11-27] MEDS: hydrALAZINE HCL 25 MG TAB PO SCH (07:49)
[2021-11-27] MEDS: carvediloL 12.5 MG TAB PO SCH ×2 (07:49→18:01)
[2021-11-27] MEDS: INSULIN DETEMIR (LEVEMIR) 100 UNIT/ML SYR SQ SCH ×2 (07:50→20:16)
[2021-11-27] MEDS: levETIRAcetam 500 MG TAB PO SCH ×2 (07:50→20:14)
[2021-11-27] MEDS: TICAGRELOR 90 MG TAB PO SCH ×2 (07:51→20:17)
[2021-11-27 09:11] LABS: Basophils # (A) 0.02 X 10*3/uL (0.00-0.10); Basophils % (A) 0.2 %; Eosinophils # (A) 0.12 X 10*3/uL (0.04-0.35); Eosinophils % (A) 1.1 %; HCT 28.6 % (39.6-50.0); HGB 8.4 g/dL (13.0-17.0); Immature Grans, Automated 1.4 %; Lymphocytes # (A) 0.97 X 10*3/uL (0.90-5.00); MCH 26.9 pg (27.0-32.0); MCHC 29.4 g/dL (32.0-37.0); MCV 91.7 fL (80.0-97.0); Mean Platelet Volume 10.1 fL (9.5-12.2); Monocytes # (A) 0.92 X 10*3/uL (0.20-1.00); Monocytes % (A) 8.6 %; NRBC Per 100 WBC 0.2 /100 WBCS (0.0-0.0); Neutrophils # (A) 8.57 X 10*3/uL (1.80-7.70); Neutrophils % (A) 79.7 %; Platelet Count 274 X 10*3/uL (140-440); RBC 3.12 X 10*6/uL (4.40-5.60); RDW 14.9 % (11.5-14.5); WBC 10.75 X 10*3/uL (4.50-10.00)
[2021-11-27 09:27] LABS: ALT 11 U/L (10-49); AST 22 U/L (14-35); African American GFR (CKD) 48.3 (60.0-200.0); Albumin 3.1 g/dL (3.8-4.9); Albumin/Globulin Ratio 1.05 (1.60-3.17); Alkaline Phosphatase 61 U/L (41-126); Calcium 8.2 mg/dL (8.7-10.3); Carbon Dioxide 26.3 mmol/L (20.0-27.5); Chloride 105 mmol/L (96-109); Glucose 126 mg/dL (70-110); Magnesium 2.3 mg/dL (1.5-2.4); Non-African American GFR(CKD) 41.7 (60.0-200.0); Potassium 4.3 mmol/L (3.5-5.5); Sodium 143 mmol/L (135-145); Total Bilirubin <0.15 mg/dL (0.30-1.20); Total Protein 6.1 g/dL (6.2-8.2)
--- NOTE | 2021-11-27 11:42 | P.PN ---
Subjective Patient is seen in follow for acute kidney injury. Renal function better. Maintained on IV Bumex. Nonoliguric. Oral intake is good. No vomiting or diarrhea. Denies chest pain or shortness of breath. Hemodynamically stable. No active complaints. Vital signs are stable. General: Awake and alert. No acute distress. HEENT: Head exam is unremarkable. LUNGS: Breath sounds decreased. HEART: Rate and Rhythm are regular. ABDOMEN: Soft, obese. EXTREMITITES: BKA noted. Right foot wrapped. No drainage. Chronic changes noted. Objective - Vital Signs Vital signs: Vital Signs Temp 98.0 F 11/27/21 07:58 Pulse 87 11/27/21 07:58 Resp 22 11/27/21 07:58 BP 169/74 11/27/21 07:58 Pulse Ox 93 L 11/27/21 07:58 Intake & Output 11/26/21 11/27/21 11/27/21 18:59 06:59 18:59 Intake Total 280 Output Total 250 1900 1300 Balance -250 -1620 -1300 Intake: Oral 280 Output: Urine 250 1900 1300 Other: Voiding Method Urinal - Labs CBC & Chem 7: 11/27/21 06:14 11/27/21 06:14 Labs: Abnormal Lab Results - Last 24 Hours (Table) 11/26/21 11/26/21 11/26/21 Range/Units 05:10 05:10 11:55 WBC (4.50-10.00) X 10*3/uL RBC 3.04 L (4.30-5.90) m/uL Hgb 8.8 L (13.0-17.5) gm/dL Hct 28.0 L (39.0-53.0) % MCH (27.0-32.0) pg MCHC (32.0-37.0) g/dL RDW (11.5-14.5) % Absolute Nucleated RBC (0.00-0.00) X 10*3/uL Immature Gran # (0.00-0.04) X 10*3/uL Neutrophils # (1.80-7.70) X 10*3/uL Lymphocytes # 0.8 L (1.0-4.8) k/uL NRBC/100 WBC Diff (0.0-0.0) /100 WBCS BUN 52 H (9-20) mg/dL Creatinine 1.82 H (0.66-1.25) mg/dL Est GFR (CKD-EPI)AfAm (60.0-200.0) Est GFR (CKD-EPI)NonAf (60.0-200.0) BUN/Creatinine Ratio (12.00-20.00) Ratio Glucose 220 H (74-99) mg/dL POC Glucose (mg/dL) 286 H (75-99) mg/dL Calcium 7.8 L (8.4-10.2) mg/dL Magnesium 2.6 H (1.6-2.3) mg/dL Total Bilirubin (0.30-1.20) mg/dL Total Protein (6.2-8.2) g/dL Albumin (3.8-4.9) g/dL Albumin/Globulin Ratio (1.60-3.17) g/dL 11/26/21 11/26/21 11/27/21 Range/Units 16:52 22:25 06:14 WBC (4.50-10.00) X 10*3/uL RBC (4.30-5.90) m/uL Hgb (13.0-17.5) gm/dL Hct (39.0-53.0) % MCH (27.0-32.0) pg MCHC (32.0-37.0) g/dL RDW (11.5-14.5) % Absolute Nucleated RBC (0.00-0.00) X 10*3/uL Immature Gran # (0.00-0.04) X 10*3/uL Neutrophils # (1.80-7.70) X 10*3/uL Lymphocytes # (1.0-4.8) k/uL NRBC/100 WBC Diff (0.0-0.0) /100 WBCS BUN 41.0 H (9-20) mg/dL Creatinine 1.7 H (0.66-1.25) mg/dL Est GFR (CKD-EPI)AfAm 48.3 L (60.0-200.0) Est GFR (CKD-EPI)NonAf 41.7 L (60.0-200.0) BUN/Creatinine Ratio 23.70 H (12.00-20.00) Ratio Glucose 126 H (74-99) mg/dL POC Glucose (mg/dL) 212 H 116 H (75-99) mg/dL Calcium 8.2 L (8.4-10.2) mg/dL Magnesium (1.6-2.3) mg/dL Total Bilirubin <0.15 L (0.30-1.20) mg/dL Total Protein 6.1 L (6.2-8.2) g/dL Albumin 3.1 L (3.8-4.9) g/dL Albumin/Globulin Ratio 1.05 L (1.60-3.17) g/dL 11/27/21 11/27/21 Range/Units 06:14 07:16 WBC 10.75 H (4.50-10.00) X 10*3/uL RBC 3.12 L (4.30-5.90) m/uL Hgb 8.4 L (13.0-17.5) gm/dL Hct 28.6 L (39.0-53.0) % MCH 26.9 L (27.0-32.0) pg MCHC 29.4 L (32.0-37.0) g/dL RDW 14.9 H (11.5-14.5) % Absolute Nucleated RBC 0.02 H (0.00-0.00) X 10*3/uL Immature Gran # 0.15 H (0.00-0.04) X 10*3/uL Neutrophils # 8.57 H (1.80-7.70) X 10*3/uL Lymphocytes # (1.0-4.8) k/uL NRBC/100 WBC Diff 0.2 H (0.0-0.0) /100 WBCS BUN (9-20) mg/dL Creatinine (0.66-1.25) mg/dL Est GFR (CKD-EPI)AfAm (60.0-200.0) Est GFR (CKD-EPI)NonAf (60.0-200.0) BUN/Creatinine Ratio (12.00-20.00) Ratio Glucose (74-99) mg/dL POC Glucose (mg/dL) 125 H (75-99) mg/dL Calcium (8.4-10.2) mg/dL Magnesium (1.6-2.3) mg/dL Total Bilirubin (0.30-1.20) mg/dL Total Protein (6.2-8.2) g/dL Albumin (3.8-4.9) g/dL Albumin/Globulin Ratio (1.60-3.17) g/dL Microbiology - Last 24 Hours (Table) 11/24/21 21:48 Blood Culture - Preliminary Blood No Growth after 48 hours Assessment and Plan Plan: Assessment: 1. Acute kidney injury mostly prerenal secondary to cardiorenal syndrome and infection. Renal function a little better today. Creatinine 1.7. Unknown baseline renal function. Etiology is likely diabetic kidney disease. Kidney ultrasound showed no evidence of hydronephrosis. 2. Right foot nonhealing wound. Status post debridement 11/13/2021. Vascular surgery and infectious disease following. Wound culture positive for Acinetobacter and MRSA. 3. Status post left BKA. 4. Diabetes mellitus. 5. Anemia. s/p IV iron. No active bleeding. On Aranesp. 6. Benign hypertension. Blood pressure on the higher side. 7. Metabolic acidosis secondary to acute kidney injury and IV fluids. On oral bicarbonate. Resolved. 8. Volume overload. Improving with diuresis. 9. Urinary retention. Currently has a Poole catheter. On Flomax. Plan: Maintain IV Bumex. Avoid nephrotoxins. Encourage oral intake. 1500 mL fluid restriction. Increase hydralazine to 50 mg 3 times daily. Continue to monitor renal function and urine output. Discussed with the patient that he will need to follow-up outpatient to establish CKD care and for further workup of proteinuria.
[2021-11-27 11:49] LABS: Glucose,Whole Blood 161 mg/dL (75-99)
[2021-11-27] MEDS: DAPTOmycin 500 MG in SODIUM CHLORIDE 0.9% 50 ML IVPB SCH (12:02)
--- NOTE | 2021-11-27 13:18 | P.PN ---
Subjective Progress Note Date: 11/27/21 No new complaints today. Pt stepped down to floor from ICU. Remains on BIPAP intermittently. Gen: awake, alert HEENT: normocephalic, atraumatic, good hearing acuity, moist mucous membranes Resp: good air exchange, breathing comfortably with no accessory muscle use CVS: good distal perfusion x 4, GI: soft, NTTP, ND : no SPT, no CVAT, he catheter not present MSK: + pitting edema, no clubbing Neuro: non-focal, moving all extremities Psych: cooperative, euthymic mood Assessment/Plan: #Acute respiratory distress with alteration in mental status, encephalopathy #Acute on chronic hypoxic and hypercarbic respiratory failure likely due to underlying COPD/emphysema, obesity sleep apnea, medications ABG showed severe hypercarbic respiratory failure with pH of 7.1 and pCO2 of 79 Improving with BiPAP Chest x-ray no significant changes previous chest x-ray Continue with supplemental oxygen and BiPAP when necessary Bumex, breathing treatments, systemic steroids Discontinued Neurontin and morphine, may continue low-dose Percocet when necessary, will decrease the frequency Discussed with pulmonary service #Right diabetic foot infection with right heel wound with osteomyelitis in the setting of peripheral arterial disease Status post incision and drainage Vascular surgery following Plan for IV antibiotics via PICC line for 6 weeks: Daptomycin and Unasyn Infectious disease following, wound care following De-escalate all his pain medications #Acute on chronic kidney injury #Urinary Retention Likely underlying diabetic nephropathy nephrology currently following Suspect component of neurogenic bladder due to diabetes mellitus Currently with indwelling He catheter, Flomax #Type 2 diabetes mellitus with stress hyperglycemia diabetic neuropathy and nephropathy A1c 8.9 Continue to adjust his insulin, increased Levemir to 20 units twice a day #History of CVA On statin and Brillinta #Severe peripheral vascular disease History of left BKA Vascular surgery following, continue antiplatelet #Severe peripheral edema Elevated d-dimer Venous duplex lower extremities negative for DVT 2 His respiratory status is improving, we will consider VQ scan Objective - Vital Signs Vital signs: Vital Signs Temp 98.0 F 11/27/21 07:58 Pulse 82 11/27/21 12:29 Resp 22 11/27/21 07:58 BP 169/74 11/27/21 07:58 Pulse Ox 93 L 11/27/21 07:58 Intake & Output 11/26/21 11/27/2122 18:59 06:59 18:59 Intake Total 280 Output Total 250 1900 1575 Balance -250 -1620 -1575 Intake: Oral 280 Output: Urine 250 1900 1575 Other: Voiding Method Urinal - Labs CBC & Chem 7: 11/27/21 06:14 11/27/21 06:14 Labs: Abnormal Lab Results - Last 24 Hours (Table) 11/26/21 11/26/21 11/27/21 Range/Units 16:52 22:25 06:14 WBC (4.50-10.00) X 10*3/uL RBC (4.40-5.60) X 10*6/uL Hgb (13.0-17.0) g/dL Hct (39.6-50.0) % MCH (27.0-32.0) pg MCHC (32.0-37.0) g/dL RDW (11.5-14.5) % Absolute Nucleated RBC (0.00-0.00) X 10*3/uL Immature Gran # (0.00-0.04) X 10*3/uL Neutrophils # (1.80-7.70) X 10*3/uL NRBC/100 WBC Diff (0.0-0.0) /100 WBCS BUN 41.0 H (9.0-27.0) mg/dL Creatinine 1.7 H (0.6-1.5) mg/dL Est GFR (CKD-EPI)AfAm 48.3 L (60.0-200.0) Est GFR (CKD-EPI)NonAf 41.7 L (60.0-200.0) BUN/Creatinine Ratio 23.70 H (12.00-20.00) Ratio Glucose 126 H (70-110) mg/dL POC Glucose (mg/dL) 212 H 116 H (75-99) mg/dL Calcium 8.2 L (8.7-10.3) mg/dL Total Bilirubin <0.15 L (0.30-1.20) mg/dL Total Protein 6.1 L (6.2-8.2) g/dL Albumin 3.1 L (3.8-4.9) g/dL Albumin/Globulin Ratio 1.05 L (1.60-3.17) g/dL 11/27/21 11/27/21 11/27/21 Range/Units 06:14 07:16 11:47 WBC 10.75 H (4.50-10.00) X 10*3/uL RBC 3.12 L (4.40-5.60) X 10*6/uL Hgb 8.4 L (13.0-17.0) g/dL Hct 28.6 L (39.6-50.0) % MCH 26.9 L (27.0-32.0) pg MCHC 29.4 L (32.0-37.0) g/dL RDW 14.9 H (11.5-14.5) % Absolute Nucleated RBC 0.02 H (0.00-0.00) X 10*3/uL Immature Gran # 0.15 H (0.00-0.04) X 10*3/uL Neutrophils # 8.57 H (1.80-7.70) X 10*3/uL NRBC/100 WBC Diff 0.2 H (0.0-0.0) /100 WBCS BUN (9.0-27.0) mg/dL Creatinine (0.6-1.5) mg/dL Est GFR (CKD-EPI)AfAm (60.0-200.0) Est GFR (CKD-EPI)NonAf (60.0-200.0) BUN/Creatinine Ratio (12.00-20.00) Ratio Glucose (70-110) mg/dL POC Glucose (mg/dL) 125 H 161 H (75-99) mg/dL Calcium (8.7-10.3) mg/dL Total Bilirubin (0.30-1.20) mg/dL Total Protein (6.2-8.2) g/dL Albumin (3.8-4.9) g/dL Albumin/Globulin Ratio (1.60-3.17) g/dL Microbiology - Last 24 Hours (Table) 11/24/21 21:48 Blood Culture - Preliminary Blood No Growth after 48 hours
--- NOTE | 2021-11-27 13:58 | P.PN ---
Subjective Progress Note Date: 11/27/21 Principal diagnosis: Shortness of breath This is a 61-year-old male patient who was originally admitted on 11/09/2021 for right foot non-healing ulcer. The patient does have a history of diabetes mellitus, CVA/TIA, seizures, hypertension, below the knee amputation of the left leg. Chronic and ongoing tobacco dependence. He had recently moved here from [place] about 2 weeks ago. MRA of the right foot revealed a cutaneous ulcer defect in the lateral aspect of the calcaneus. There is surrounding edema. Soft tissue edema the foot. No fracture. No evidence of osteomyelitis. Cultures were positive for Citrobacter Disla and MRSA. ID is on the case and he is currently on Unasyn and daptomycin. Earlier today the patient developed a rather acute episode of shortness of breath and hypoxemia and a rapid response team was called. Chest x-ray revealed right-sided PICC line in place. Interstitial changes within the lungs with no evidence of pneumothorax or pleu ral effusion. He was placed on BiPAP initially 16/6 and 100% FiO2 and arterial blood gases revealed a pO2 of 171, pCO2 of 79, pH 7.14. He was decreased to 60% FiO2. He was transferred to the intensive care unit. He is seen there today in consultation. He is arousable. Follow-up blood gases revealed a pO2 of 97, pCO2 of 55 and a pH of 7.28 on the 60% FiO2. He was given an extra dose of IV Bumex. Initiated on IV Solu-Medrol and continued on DuoNeb inhalations. He is on heparin for DVT prophylaxis. He is currently maintaining O2 saturations in the 90s. He is hemodynamically stable. White count 14.5. Hemoglobin 9.7. Platelets 287. D-dimer was 7.95. Sodium 143. Potassium 5.3. BUN of 36. Creatinine of 2.74. Troponin negative 1. The patient is seen today 11/23/2021 in follow-up in the intensive care unit. He is much more awake and alert. Currently on 5 L high flow nasal cannula with O2 saturation the 90s. He did stay on BiPAP throughout the evening and 16/6 and 40% FiO2. No IV fluids. Repeat Doppler of the lower extremities did not reveal any significant DVT. Right foot wound is positive for MRSA and Acinetobacter Ronit. He remains on daptomycin and Unasyn. Heparin for DVT prophylaxis. White count 8.2. Hemoglobin 8.4. Sodium 140 para potassium 5.3. BUN 48. Creatinine 2.72. Currently in a -720 ML balance. The patient is seen today 11/24/2021 in follow-up in the intensive care unit. He is currently sitting up in bed. Awake and alert in no acute distress. He is maintaining O2 saturations in the 90s on 5 L high flow nasal cannula. He did utilize the BiPAP 12/6 and 40% FiO2 throughout the night. He denies any worsening shortness of breath, cough or congestion. No IV fluids currently. He is continued on bronchodilators, antibiotics in the form of Unasyn and daptomycin. Heparin for DVT prophylaxis. White count 10.1. Hemoglobin 8.7. P latelets 249. Sodium 141. Potassium 4.8. BUN 56. Creatinine 2.37. Remains in a negative balance of 582 ML's. Continued on Bumex 1 mg IV every 12 hours. The patient is seen today 11/25/2021 in follow-up on the regular medical floor. He is currently sitting up in a chair at the bedside. Awake and alert in no acute distress. Last night he had a bit of anxiety and was placed back on the BiPAP 16/6 and 60% FiO2. Arterial blood gases on 50% FiO2 revealed a pO2 of 56, pCO2 53, pH 7.32. He is on 6 L high flow nasal cannula currently. He has been slow to progress. Chest x-ray continued shows pulmonary interstitial and airspace edema. White count 9.0. Hemoglobin 8.7. Platelets 247. Sodium 144. Potassium 4.6. BUN 50. Creatinine 2.0. Glucose 248. Pro-calcitonin 1.07. He is continued on daptomycin and Unasyn per ID services. Continue bronchodilators. Heparin for DVT prophylaxis. On 11/26/2021 patient seen in follow-up on medical surgical floor. He is awake and alert, he is sitting up in the recliner, breathing comfortably, he is currently on 6 L of oxygen per nasal cannula, he did wear BiPAP support last night with pressures of 16/6 and FiO2 of 40%, he is on point, saying that over to 20 ML per hour, no other drips, he remains on daptomycin and Unasyn for evidence of MRSA and Acetobacter Bbaumanii on The Nonhealing Ulcer of the Right Heel Status Post Surgical Debridement on 11/15/2021. Last chest x-ray was done on 11/24/2021 point patchy pulmonary edema which was increased compared to his previous chest x-ray and a right pleural effusion which also appeared increased. Patient is currently on IV Bumex at 2 mg every 12 hours, and extensively diuresing, and he is in -3 L and 75 ML over the last 24 hours. No altered mentation, he is answering questions appropriately, seems to breathing comfortably, no complaints of worsening dyspnea cough or chest discomfort. On 11/27/2021 patient is seen in follow-up on medical surgical floor. Patient is sitting up in a recliner, does not appear to be in any acute distress, he wore the BiPAP support part of the night, and requested to go back on it during the day today. Last night she was having episodes of increased shortness of breath and anxiety, he received a dose of Ativan which seemed to help him, he remains on Bumex 2 mg every 12 hours IV push, he is in -1870 amount of fluid balance over the last 24 hours, he remains on 1.5 L fluid restriction over the last 24 hours, he is currently on 6 L of oxygen pulse ox is 93%. No fever or chills, vital signs have been stable. Chest x-ray today showing cardiomegaly with bilateral multifocal opacities no significant change from most recent study. Objective - Vital Signs Vital signs: Vital Signs Temp 98.0 F 11/27/21 07:58 Pulse 82 11/27/21 12:29 Resp 22 11/27/21 07:58 BP 169/74 11/27/21 07:58 Pulse Ox 93 L 11/27/21 07:58 Intake & Output 11/26/21 11/27/21 11/27/21 18:59 06:59 18:59 Intake Total 280 Output Total 250 1900 1575 Balance -250 1620 -1575 Intake: Oral 280 Output: Urine 250 1900 1575 Other: Voiding Method Urinal - Exam GENERAL EXAM: Alert, very pleasant, 61-year-old white male, 6 L of oxygen sitting up in the recliner, in no acute distress, comfortable in no apparent distress. HEAD: Normocephalic/atraumatic. EYES: Normal reaction of pupils, equal size. Conjunctiva pink, sclera white. NOSE: Clear with pink turbinates. THROAT: No erythema or exudates. NECK: No masses, no JVD, no thyroid enlargement, no adenopathy. CHEST: No chest wall deformity. Symmetrical expansion. LUNGS: Equal air entry with no crackles, wheeze, rhonchi or dullness. CVS: Regular rate and rhythm, normal S1 and S2, no gallops, no murmurs, no rubs ABDOMEN: Soft, nontender. No hepatosplenomegaly, normal bowel sounds, no guarding or rigidity. EXTREMITIES: No clubbing, no edema, no cyanosis, 2+ pulses and upper and lower extremities. Right lower extremity is covered with a surgical dressing, clean dry and intact. MUSCULOSKELETAL: Muscle strength and tone normal. SPINE: No scoliosis or deformity SKIN: No rashes CENTRAL NERVOUS SYSTEM: Alert and oriented -3. No focal deficits, tone is normal in all 4 extremities. PSYCHIATRIC: Alert and oriented -3. Appropriate affect. Intact judgment and insight. - Labs CBC & Chem 7: 11/27/21 06:14 11/27/21 06:14 Labs: Abnormal Lab Results - Last 24 Hours (Table) 11/26/21 11/26/21 11/27/21 Range/Units 16:52 22:25 06:14 WBC (4.50-10.00) X 10*3/uL RBC (4.40-5.60) X 10*6/uL Hgb (13.0-17.0) g/dL Hct (39.6-50.0) % MCH (27.0-32.0) pg MCHC (32.0-37.0) g/dL RDW (11.5-14.5) % Absolute Nucleated RBC (0.00-0.00) X 10*3/uL Immature Gran # (0.00-0.04) X 10*3/uL Neutrophils # (1.80-7.70) X 10*3/uL NRBC/100 WBC Diff (0.0-0.0) /100 WBCS BUN 41.0 H (9.0-27.0) mg/dL Creatinine 1.7 H (0.6-1.5) mg/dL Est GFR (CKD-EPI)AfAm 48.3 L (60.0-200.0) Est GFR (CKD-EPI)NonAf 41.7 L (60.0-200.0) BUN/Creatinine Ratio 23.70 H (12.00-20.00) Ratio Glucose 126 H (70-110) mg/dL POC Glucose (mg/dL) 212 H 116 H (75-99) mg/dL Calcium 8.2 L (8.7-10.3) mg/dL Total Bilirubin <0.15 L (0.30-1.20) mg/dL Total Protein 6.1 L (6.2-8.2) g/dL Albumin 3.1 L (3.8-4.9) g/dL Albumin/Globulin Ratio 1.05 L (1.60-3.17) g/dL 11/27/21 11/27/21 11/27/21 Range/Units 06:14 07:16 11:47 WBC 10.75 H (4.50-10.00) X 10*3/uL RBC 3.12 L (4.40-5.60) X 10*6/uL Hgb 8.4 L (13.0-17.0) g/dL Hct 28.6 L (39.6-50.0) % MCH 26.9 L (27.0-32.0) pg MCHC 29.4 L (32.0-37.0) g/dL RDW 14.9 H (11.5-14.5) % Absolute Nucleated RBC 0.02 H (0.00-0.00) X 10*3/uL Immature Gran # 0.15 H (0.00-0.04) X 10*3/uL Neutrophils # 8.57 H (1.80-7.70) X 10*3/uL NRBC/100 WBC Diff 0.2 H (0.0-0.0) /100 WBCS BUN (9.0-27.0) mg/dL Creatinine (0.6-1.5) mg/dL Est GFR (CKD-EPI)AfAm (60.0-200.0) Est GFR (CKD-EPI)NonAf (60.0-200.0) BUN/Creatinine Ratio (12.00-20.00) Ratio Glucose (70-110) mg/dL POC Glucose (mg/dL) 125 H 161 H (75-99) mg/dL Calcium (8.7-10.3) mg/dL Total Bilirubin (0.30-1.20) mg/dL Total Protein (6.2-8.2) g/dL Albumin (3.8-4.9) g/dL Albumin/Globulin Ratio (1.60-3.17) g/dL Microbiology - Last 24 Hours (Table) 11/24/21 21:48 Blood Culture - Preliminary Blood No Growth after 48 hours Assessment and Plan Plan: 1 Acute hypoxemic respiratory failure secondary to suspected fluid volume overload and atelectasis. Elevated d-dimer. Doppler of the lower extremities negative for DVT 2 Nonhealing ulcer of the right heel with debridement on 11/15/2021. Cultures positive for MRSA and Acinetobacter ronit currently on Unasyn and daptomycin 3 Acute renal failure with current creatinine 1.7 4 Diabetes mellitus type 2 5 Diabetic neuropathy 6 Peripheral vascular disease with previous left below the knee amputation 7 Chronic and ongoing tobacco dependence 8 Hypertension 9 History of seizures Plan: Continue diuretics BiPAP support at bedtime and as needed We'll add Xanax 0.25 mg as needed for anxiety and respiratory difficulty Continue breathing treatments Diuretics per nephrology recommendations Antibiotics per ID We'll continue to follow I have personally seen and examined the patient, performed the documentation and the assessment and plan as written. Number of minutes spent on the visit: [10] I have personally seen and examined the patient and reviewed the documentation. I performed a joint evaluation with the nurse practitioner in this evaluation was done more than 20 minutes. I fully agree with the documentation above and the plan of care. The patient is doing well. The patient continues to diurese. Renal function continues to improve. The creatinine is down to 1.7. Note that the patient had a bout of increased anxiety. He was having some difficulty breathing yesterday. He was placed on BiPAP overnight. He was given a dose of Ativan and this morning he feels much better. I think is a component of anxiety and the patient was started also on Xanax. Xanax abuse on an as-needed basis. Continue BiPAP overnight. Continue diuretics. Monitor electrolytes. Continue same antibiotic coverage. We'll continue to follow. Time with Patient: Less than 30
[2021-11-27] MEDS: hydrALAZINE HCL 50 MG TAB PO SCH ×2 (15:37→22:10)
[2021-11-27 16:32] LABS: Glucose,Whole Blood 257 mg/dL (75-99)
[2021-11-27 20:14] LABS: Glucose,Whole Blood 235 mg/dL (75-99)
[2021-11-27] MEDS: ALPRAZolam 0.25 MG TAB PO PRN (22:10)
[2021-11-28] MEDS: IPRATROPIUM-ALBUTEROL 3 ML NEB INHALATION SCH ×6 (00:06→21:10)
[2021-11-28] MEDS: oxyCODONE-APAP 10-325MG 1 EACH TAB PO PRN ×5 (02:23→21:22)
[2021-11-28] MEDS: AMPICILLIN-SULBACTAM 3 GM in SODIUM CHLORIDE 0.9% 100 ML IVPB SCH ×4 (02:24→21:22)
[2021-11-28] MEDS: BUMETANIDE 0.25 MG/ML 10 ML VIAL IV SCH ×2 (05:41→17:58)
[2021-11-28 07:03] LABS: Glucose,Whole Blood 188 mg/dL (75-99)
[2021-11-28] MEDS: INSULIN DETEMIR (LEVEMIR) 100 UNIT/ML SYR SQ SCH ×2 (07:56→21:16)
[2021-11-28] MEDS: carvediloL 12.5 MG TAB PO SCH ×2 (07:57→16:10)
[2021-11-28] MEDS: TAMSULOSIN 0.4 MG CAP.ER.24H PO SCH (07:57)
[2021-11-28] MEDS: levETIRAcetam 500 MG TAB PO SCH ×2 (07:57→21:16)
[2021-11-28] MEDS: GABAPENTIN 100 MG CAP PO SCH ×2 (07:57→21:17)
[2021-11-28] MEDS: HEPARIN SODIUM,PORCINE/PF 5,000 UNIT/0.5 ML SYRINGE SQ SCH ×3 (07:57→15:59)
[2021-11-28] MEDS: INSULIN ASPART (NovoLOG) 100 UNIT/ML VIAL SQ SCH ×4 (07:57→21:21)
[2021-11-28] MEDS: hydrALAZINE HCL 50 MG TAB PO SCH ×3 (07:57→21:17)
[2021-11-28] MEDS: TICAGRELOR 90 MG TAB PO SCH ×2 (07:57→21:16)
[2021-11-28] MEDS: ALPRAZolam 0.25 MG TAB PO PRN (09:10)
--- NOTE | 2021-11-28 11:13 | P.PN ---
Subjective Patient is seen in follow for acute kidney injury. Renal function better. Morning labs pending. Maintained on IV Bumex. Nonoliguric. Oral intake is good. No vomiting or diarrhea. Denies chest pain or shortness of breath. Hemodynamically stable. No active complaints. Vital signs are stable. General: Awake and alert. No acute distress. HEENT: Head exam is unremarkable. LUNGS: Breath sounds decreased. HEART: Rate and Rhythm are regular. ABDOMEN: Soft, obese. EXTREMITITES: BKA noted. Right foot wrapped. No drainage. Chronic changes noted. Objective - Vital Signs Vital signs: Vital Signs Temp 98.0 F 11/28/21 08:00 Pulse 78 11/28/21 08:00 Resp 18 11/28/21 08:44 BP 169/72 11/28/21 08:00 Pulse Ox 93 L 11/28/21 08:00 Intake & Output 11/27/21 11/28/21 11/28/21 18:59 06:59 18:59 Intake Total 460 Output Total 1815 800 1 Balance -1815 -340 -1 Intake: Oral 460 Output: Urine 1815 800 Stool 1 Other: Voiding Method Urinal Urinal Urinal - Labs CBC & Chem 7: 11/27/21 06:14 11/27/21 06:14 Labs: Abnormal Lab Results - Last 24 Hours (Table) 11/27/21 11/27/21 11/27/21 Range/Units 11:47 16:31 20:13 POC Glucose (mg/dL) 161 H 257 H 235 H (75-99) mg/dL 11/28/21 Range/Units 07:01 POC Glucose (mg/dL) 188 H (75-99) mg/dL Microbiology - Last 24 Hours (Table) 11/27/21 09:42 Gram Stain - Preliminary Sputum Sputum Culture - Preliminary 11/24/21 21:48 Blood Culture - Preliminary Blood No Growth after 72 hours Assessment and Plan Plan: Assessment: 1. Acute kidney injury mostly prerenal secondary to cardiorenal syndrome and infection. Creatinine 1.7 yesterday. Unknown baseline renal function. Etiology is likely diabetic kidney disease. Kidney ultrasound showed no evidence of hydronephrosis. 2. Right foot nonhealing wound. Status post debridement 11/13/2021. Vascular surgery and infectious disease following. Wound culture positive for Acinetobacter and MRSA. 3. Status post left BKA. 4. Diabetes mellitus. 5. Anemia. s/p IV iron. No active bleeding. On Aranesp. 6. Benign hypertension. 7. Metabolic acidosis secondary to acute kidney injury and IV fluids. On oral bicarbonate. Resolved. 8. Volume overload. Improving with diuresis. 9. Urinary retention. Poole catheter removed. On Flomax. Plan: Maintain IV Bumex. Avoid nephrotoxins. Encourage oral intake. 1500 mL fluid restriction. Dose of hydralazine increased yesterday. Further increase dose if blood pressures staying above 140/90. Continue to monitor renal function and urine output. Follow-up morning labs. Discussed with the patient that he will need to follow-up outpatient to establish CKD care and for further workup of proteinuria.
[2021-11-28 11:46] LABS: Glucose,Whole Blood 247 mg/dL (75-99)
[2021-11-28] MEDS: DAPTOmycin 500 MG in SODIUM CHLORIDE 0.9% 50 ML IVPB SCH (12:34)
[2021-11-28 13:46] VITALS: BMI 35.1
--- NOTE | 2021-11-28 14:07 | P.PN ---
Subjective Progress Note Date: 11/28/21 No new complaints today. Pt is doing well on 5L NC. Feeling much better. Will need PICC line and outpatient IV abx. But remains in the hospital for ongoing IV diuresis. Gen: awake, alert HEENT: normocephalic, atraumatic, good hearing acuity, moist mucous membranes Resp: good air exchange, breathing comfortably with no accessory muscle use CVS: good distal perfusion x 4, GI: soft, NTTP, ND : no SPT, no CVAT, he catheter not present MSK: + pitting edema, no clubbing Neuro: non-focal, moving all extremities Psych: cooperative, euthymic mood Assessment/Plan: #Acute respiratory distress with alteration in mental status, encephalopathy #Acute on chronic hypoxic and hypercarbic respiratory failure likely due to underlying COPD/emphysema, obesity sleep apnea, medications ABG showed severe hypercarbic respiratory failure with pH of 7.1 and pCO2 of 79 Improved with BIPAP, now on 5L NC Chest x-ray no significant changes previous chest x-ray Continue with supplemental oxygen and BiPAP when necessary Bumex, breathing treatments, systemic steroids Discontinued Neurontin and morphine, may continue low-dose Percocet when necessary, will decrease the frequency #Right diabetic foot infection with right heel wound with osteomyelitis in the setting of peripheral arterial disease Status post incision and drainage Vascular surgery following Plan for IV antibiotics via PICC line for 6 weeks: Daptomycin and Unasyn Infectious disease following, wound care following De-escalate all his pain medications #Acute on chronic kidney injury #Urinary Retention Likely underlying diabetic nephropathy nephrology currently following Suspect component of neurogenic bladder due to diabetes mellitus Currently with indwelling He catheter, Flomax #Type 2 diabetes mellitus with stress hyperglycemia diabetic neuropathy and nephropathy A1c 8.9 Continue to adjust his insulin, increased Levemir to 20 units twice a day #History of CVA On statin and Brillinta #Severe peripheral vascular disease History of left BKA Vascular surgery following, continue antiplatelet #Severe peripheral edema Elevated d-dimer Venous duplex lower extremities negative for DVT 2 His respiratory status is improving, we will consider VQ scan Pt is Full Code Objective - Vital Signs Vital signs: Vital Signs Temp 98.0 F 11/28/21 08:00 Pulse 78 11/28/21 08:00 Resp 18 11/28/21 08:44 BP 169/72 11/28/21 08:00 Pulse Ox 93 L 11/28/21 08:00 Intake & Output 11/27/21 11/28/21 11/28/21 18:59 06:59 18:59 Intake Total 460 150 Output Total 1815 800 501 Balance -1815 -340 -351 Weight 117.4 kg Intake: Oral 460 150 Output: Urine 1815 800 500 Stool 1 Other: Voiding Method Urinal Urinal Urinal # Bowel Movements 1 - Labs CBC & Chem 7: 11/27/21 06:14 11/27/21 06:14 Labs: Abnormal Lab Results - Last 24 Hours (Table) 11/27/21 11/27/21 11/28/21 Range/Units 16:31 20:13 07:01 POC Glucose (mg/dL) 257 H 235 H 188 H (75-99) mg/dL 11/28/21 Range/Units 11:45 POC Glucose (mg/dL) 247 H (75-99) mg/dL Microbiology - Last 24 Hours (Table) 11/27/21 09:42 Gram Stain - Preliminary Sputum Sputum Culture - Preliminary 11/24/21 21:48 Blood Culture - Preliminary Blood No Growth after 72 hours
--- NOTE | 2021-11-28 14:21 | P.PN ---
Subjective Progress Note Date: 11/28/21 Principal diagnosis: Shortness of breath This is a 61-year-old male patient who was originally admitted on 11/09/2021 for right foot non-healing ulcer. The patient does have a history of diabetes mellitus, CVA/TIA, seizures, hypertension, below the knee amputation of the left leg. Chronic and ongoing tobacco dependence. He had recently moved here from [place] about 2 weeks ago. MRA of the right foot revealed a cutaneous ulcer defect in the lateral aspect of the calcaneus. There is surrounding edema. Soft tissue edema the foot. No fracture. No evidence of osteomyelitis. Cultures were positive for Citrobacter Disla and MRSA. ID is on the case and he is currently on Unasyn and daptomycin. Earlier today the patient developed a rather acute episode of shortness of breath and hypoxemia and a rapid response team was called. Chest x-ray revealed right-sided PICC line in place. Interstitial changes within the lungs with no evidence of pneumothorax or pleu ral effusion. He was placed on BiPAP initially 16/6 and 100% FiO2 and arterial blood gases revealed a pO2 of 171, pCO2 of 79, pH 7.14. He was decreased to 60% FiO2. He was transferred to the intensive care unit. He is seen there today in consultation. He is arousable. Follow-up blood gases revealed a pO2 of 97, pCO2 of 55 and a pH of 7.28 on the 60% FiO2. He was given an extra dose of IV Bumex. Initiated on IV Solu-Medrol and continued on DuoNeb inhalations. He is on heparin for DVT prophylaxis. He is currently maintaining O2 saturations in the 90s. He is hemodynamically stable. White count 14.5. Hemoglobin 9.7. Platelets 287. D-dimer was 7.95. Sodium 143. Potassium 5.3. BUN of 36. Creatinine of 2.74. Troponin negative 1. The patient is seen today 11/23/2021 in follow-up in the intensive care unit. He is much more awake and alert. Currently on 5 L high flow nasal cannula with O2 saturation the 90s. He did stay on BiPAP throughout the evening and 16/6 and 40% FiO2. No IV fluids. Repeat Doppler of the lower extremities did not reveal any significant DVT. Right foot wound is positive for MRSA and Acinetobacter Karma. He remains on daptomycin and Unasyn. Heparin for DVT prophylaxis. White count 8.2. Hemoglobin 8.4. Sodium 140 para potassium 5.3. BUN 48. Creatinine 2.72. Currently in a -720 ML balance. The patient is seen today 11/24/2021 in follow-up in the intensive care unit. He is currently sitting up in bed. Awake and alert in no acute distress. He is maintaining O2 saturations in the 90s on 5 L high flow nasal cannula. He did utilize the BiPAP 12/6 and 40% FiO2 throughout the night. He denies any worsening shortness of breath, cough or congestion. No IV fluids currently. He is continued on bronchodilators, antibiotics in the form of Unasyn and daptomycin. Heparin for DVT prophylaxis. White count 10.1. Hemoglobin 8.7. P latelets 249. Sodium 141. Potassium 4.8. BUN 56. Creatinine 2.37. Remains in a negative balance of 582 ML's. Continued on Bumex 1 mg IV every 12 hours. The patient is seen today 11/25/2021 in follow-up on the regular medical floor. He is currently sitting up in a chair at the bedside. Awake and alert in no acute distress. Last night he had a bit of anxiety and was placed back on the BiPAP 16/6 and 60% FiO2. Arterial blood gases on 50% FiO2 revealed a pO2 of 56, pCO2 53, pH 7.32. He is on 6 L high flow nasal cannula currently. He has been slow to progress. Chest x-ray continued shows pulmonary interstitial and airspace edema. White count 9.0. Hemoglobin 8.7. Platelets 247. Sodium 144. Potassium 4.6. BUN 50. Creatinine 2.0. Glucose 248. Pro-calcitonin 1.07. He is continued on daptomycin and Unasyn per ID services. Continue bronchodilators. Heparin for DVT prophylaxis. On 11/26/2021 patient seen in follow-up on medical surgical floor. He is awake and alert, he is sitting up in the recliner, breathing comfortably, he is currently on 6 L of oxygen per nasal cannula, he did wear BiPAP support last night with pressures of 16/6 and FiO2 of 40%, he is on point, saying that over to 20 ML per hour, no other drips, he remains on daptomycin and Unasyn for evidence of MRSA and Acetobacter Bbaumanii on The Nonhealing Ulcer of the Right Heel Status Post Surgical Debridement on 11/15/2021. Last chest x-ray was done on 11/24/2021 point patchy pulmonary edema which was increased compared to his previous chest x-ray and a right pleural effusion which also appeared increased. Patient is currently on IV Bumex at 2 mg every 12 hours, and extensively diuresing, and he is in -3 L and 75 ML over the last 24 hours. No altered mentation, he is answering questions appropriately, seems to breathing comfortably, no complaints of worsening dyspnea cough or chest discomfort. On 11/27/2021 patient is seen in follow-up on medical surgical floor. Patient is sitting up in a recliner, does not appear to be in any acute distress, he wore the BiPAP support part of the night, and requested to go back on it during the day today. Last night she was having episodes of increased shortness of breath and anxiety, he received a dose of Ativan which seemed to help him, he remains on Bumex 2 mg every 12 hours IV push, he is in -1870 amount of fluid balance over the last 24 hours, he remains on 1.5 L fluid restriction over the last 24 hours, he is currently on 6 L of oxygen pulse ox is 93%. No fever or chills, vital signs have been stable. Chest x-ray today showing cardiomegaly with bilateral multifocal opacities no significant change from most recent study. On 11/28/2021 patient seen in follow-up on medical surgical floor. He is sitting up in the recliner, he states his breathing is better, still having some chest congestion, and he is bringing up some green colored phlegm. She did wear BiPAP support at night, with pressures of 16/6 and FiO2 of 40%, and he does requested during the day periodically for periods of increased shortness of breath. Otherwise he states he does feel better, he is a diuresing, he is a - 2155 milk the fluid balance over the last 24 hours, remains on Bumex 2 mg every 12 hours, he remains on ampicillin/sulbactam and daptomycin per ID service recommendations, vital signs have been stable, his been afebrile. His right foot wound culture showed Acetobacter Mariangel any, and right heel culture showed MRSA and anaerobic gram-negative bacilli. His pro-calcitonin was improving a couple days ago. Renal profile was improving on yesterday's labs, today's labs are still pending. Objective - Vital Signs Vital signs: Vital Signs Temp 98.0 F 11/28/21 08:00 Pulse 78 11/28/21 08:00 Resp 18 11/28/21 08:44 BP 169/72 11/28/21 08:00 Pulse Ox 93 L 11/28/21 08:00 Intake & Output 11/27/21 11/28/21 11/28/21 18:59 06:59 18:59 Intake Total 460 150 Output Total 1815 800 501 Balance -1815 -340 -351 Weight 117.4 kg Intake: Oral 460 150 Output: Urine 1815 800 500 Stool 1 Other: Voiding Method Urinal Urinal Urinal # Bowel Movements 1 - Exam GENERAL EXAM: Alert, very pleasant, 61-year-old white male, 5 L of oxygen sitting up in the recliner, in no acute distress, comfortable in no apparent distress. HEAD: Normocephalic/atraumatic. EYES: Normal reaction of pupils, equal size. Conjunctiva pink, sclera white. NOSE: Clear with pink turbinates. THROAT: No erythema or exudates. NECK: No masses, no JVD, no thyroid enlargement, no adenopathy. CHEST: No chest wall deformity. Symmetrical expansion. LUNGS: Equal air entry with diffuse rhonchi CVS: Regular rate and rhythm, normal S1 and S2, no gallops, no murmurs, no rubs ABDOMEN: Soft, nontender. No hepatosplenomegaly, normal bowel sounds, no guarding or rigidity. EXTREMITIES: No clubbing, no edema, no cyanosis, 2+ pulses and upper and lower extremities. Right lower extremity is covered with a surgical dressing, clean dry and intact. MUSCULOSKELETAL: Muscle strength and tone normal. SPINE: No scoliosis or deformity SKIN: No rashes CENTRAL NERVOUS SYSTEM: Alert and oriented -3. No focal deficits, tone is normal in all 4 extremities. PSYCHIATRIC: Alert and oriented -3. Appropriate affect. Intact judgment and insight. - Labs CBC & Chem 7: 11/27/21 06:14 11/27/21 06:14 Labs: Abnormal Lab Results - Last 24 Hours (Table) 11/27/21 11/27/21 11/28/21 Range/Units 16:31 20:13 07:01 POC Glucose (mg/dL) 257 H 235 H 188 H (75-99) mg/dL 11/28/21 Range/Units 11:45 POC Glucose (mg/dL) 247 H (75-99) mg/dL Microbiology - Last 24 Hours (Table) 11/27/21 09:42 Gram Stain - Preliminary Sputum Sputum Culture - Preliminary 11/24/21 21:48 Blood Culture - Preliminary Blood No Growth after 72 hours Assessment and Plan Plan: 1 Acute hypoxemic respiratory failure secondary to suspected fluid volume overload and atelectasis. Elevated d-dimer. Doppler of the lower extremities negative for DVT 2 Nonhealing ulcer of the right heel with debridement on 11/15/2021. Cultures positive for MRSA and Acinetobacter baumanii currently on Unasyn and daptomycin 3 Acute renal failure , improving 4 Diabetes mellitus type 2 5 Diabetic neuropathy 6 Peripheral vascular disease with previous left below the knee amputation 7 Chronic and ongoing tobacco dependence 8 Hypertension 9 History of seizures Plan: Breathing is improving, Patient is maintaining negative fluid balance Continue with nebulized bronchodilators Continue diuretics BiPAP support at bedtime and as needed Encourage deep breathing and coughing, Incentive spirometry use Continue weaning FiO2 to keep O2 sats ration is at or above 92% Follow-up labs tomorrow Patient will need subacute rehab placement in view of multiple complex medical needs requiring usp care and physical therapy Increase activity as tolerated I have personally seen and examined the patient, performed the documentation and the assessment and plan as written. Number of minutes spent on the visit: [10] I have personally seen and examined the patient and reviewed the documentation. I performed a joint evaluation with the nurse practitioner in this evaluation was done more than 20 minutes. I fully agree with the documentation above and the plan of care.. The patient's condition is stable for now. The patient continues to produce adequate amount of urine output. No labs elevated from today. Neck is kidney injury was improving. The oxygenation also stable and the patient is currently on 5 L O2 nasal cannula with a pulse ox of around 91-92%. Continue using incentive spirometer. Continue using the same antibiotic coverage including examination of Unasyn and daptomycin. The patient is also on Bumex 2 mg IV every 12 hours. Repeat elective right-sided a.m. Time with Patient: Less than 30
[2021-11-28 16:09] LABS: Magnesium 2.2 mg/dL (1.5-2.4)
[2021-11-28 16:17] LABS: African American GFR (CKD) 47.7 (60.0-200.0); Anion Gap 11.5 mmol/L (10.00-18.00); BUN/Creat Ratio 20.63 Ratio (12.00-20.00); Blood Urea Nitrogen 36.1 mg/dL (9.0-27.0); Calcium 7.8 mg/dL (8.7-10.3); Carbon Dioxide 27.4 mmol/L (20.0-27.5); Non-African American GFR(CKD) 41.1 (60.0-200.0)
[2021-11-28 16:17] LABS: Glucose,Whole Blood 237 mg/dL (75-99)
--- NOTE | 2021-11-28 17:56 | P.PN ---
Subjective Progress Note Date: 11/27/21 Principal diagnosis: Right heel diabetic wound infection Patient is a 61 year old male with a past medical history significant for left [id number] amputation in this patient with underlying diabetes presenting to the hospital with a nonhealing wound to the right heel and concern for secondary infection, patient did have MRI completed on 11/10/2021 with no evidence of osteomyelitis. The patient is status post surgical debridement of his right heel wound completed on 11/13/2021 with evidence of extension of the wound down to the wound On today's evaluation that is 11/27/2021, the patient continues to be afebrile, patient is breathing comfortably on nasal cannula oxygen, the patient denies having any chest pain, occasional cough but not bringing up any sputum production no abdominal pain or diarrhea Objective - Vital Signs Vital signs: Vital Signs Temp 98.4 F 11/27/21 14:00 Pulse 98 11/27/21 14:00 Resp 24 11/27/21 14:00 BP 156/70 11/27/21 14:00 Pulse Ox 92 L 11/27/21 14:00 Intake & Output 11/26/21 11/27/21 11/27/21 18:59 06:59 18:59 Intake Total 280 Output Total 250 1900 1815 Balance -250 1620 1811 Intake: Oral 280 Output: Urine 250 1900 1815 Other: Voiding Method Urinal - Exam GENERAL DESCRIPTION: Middle-aged male lying in bed in no distress RESPIRATORY SYSTEM: Unlabored breathing , decreased breath sounds at bases HEART: S1 S2 regular rate and rhythm , ABDOMEN: Soft , no tenderness EXTREMITIES: Right lateral heel wound did have some slough tissue some surrounding redness no foul-smelling drainage - Labs CBC & Chem 7: 11/27/21 06:14 11/28/21 08:35 Labs: Abnormal Lab Results - Last 24 Hours (Table) 11/26/21 11/26/21 11/27/21 Range/Units 16:52 22:25 06:14 WBC (4.50-10.00) X 10*3/uL RBC (4.40-5.60) X 10*6/uL Hgb (13.0-17.0) g/dL Hct (39.6-50.0) % MCH (27.0-32.0) pg MCHC (32.0-37.0) g/dL RDW (11.5-14.5) % Absolute Nucleated RBC (0.00-0.00) X 10*3/uL Immature Gran # (0.00-0.04) X 10*3/uL Neutrophils # (1.80-7.70) X 10*3/uL NRBC/100 WBC Diff (0.0-0.0) /100 WBCS BUN 41.0 H (9.0-27.0) mg/dL Creatinine 1.7 H (0.6-1.5) mg/dL Est GFR (CKD-EPI)AfAm 48.3 L (60.0-200.0) Est GFR (CKD-EPI)NonAf 41.7 L (60.0-200.0) BUN/Creatinine Ratio 23.70 H (12.00-20.00) Ratio Glucose 126 H (70-110) mg/dL POC Glucose (mg/dL) 212 H 116 H (75-99) mg/dL Calcium 8.2 L (8.7-10.3) mg/dL Total Bilirubin <0.15 L (0.30-1.20) mg/dL Total Protein 6.1 L (6.2-8.2) g/dL Albumin 3.1 L (3.8-4.9) g/dL Albumin/Globulin Ratio 1.05 L (1.60-3.17) g/dL 11/27/21 11/27/21 11/27/21 Range/Units 06:14 07:16 11:47 WBC 10.75 H (4.50-10.00) X 10*3/uL RBC 3.12 L (4.40-5.60) X 10*6/uL Hgb 8.4 L (13.0-17.0) g/dL Hct 28.6 L (39.6-50.0) % MCH 26.9 L (27.0-32.0) pg MCHC 29.4 L (32.0-37.0) g/dL RDW 14.9 H (11.5-14.5) % Absolute Nucleated RBC 0.02 H (0.00-0.00) X 10*3/uL Immature Gran # 0.15 H (0.00-0.04) X 10*3/uL Neutrophils # 8.57 H (1.80-7.70) X 10*3/uL NRBC/100 WBC Diff 0.2 H (0.0-0.0) /100 WBCS BUN (9.0-27.0) mg/dL Creatinine (0.6-1.5) mg/dL Est GFR (CKD-EPI)AfAm (60.0-200.0) Est GFR (CKD-EPI)NonAf (60.0-200.0) BUN/Creatinine Ratio (12.00-20.00) Ratio Glucose (70-110) mg/dL POC Glucose (mg/dL) 125 H 161 H (75-99) mg/dL Calcium (8.7-10.3) mg/dL Total Bilirubin (0.30-1.20) mg/dL Total Protein (6.2-8.2) g/dL Albumin (3.8-4.9) g/dL Albumin/Globulin Ratio (1.60-3.17) g/dL Microbiology - Last 24 Hours (Table) 11/27/21 09:42 Sputum Culture - Preliminary Sputum 11/24/21 21:48 Blood Culture - Preliminary Blood No Growth after 48 hours Assessment and Plan (1) Decubitus ulcer of foot Current Visit: Yes Status: Acute Code(s): L89.899 - PRESSURE ULCER OF OTHER SITE, UNSPECIFIED STAGE SNOMED Code(s): 1412059979 Plan: 1patient with right lateral heel/foot area diabetic foot ulcer started with debridement of the callus by his manager drive few weeks ago with concern for se condary cellulitis, plain x-ray and MRI did not show any evidence of osteomyelitis at this point and will need to cover for the polymicrobial marianna usually associated with diabetic foot infection. 2 the patient did have surgical debridement with evidence of wound extended down to the board concerning for acute bacterial Osteomyelitis and deep culture has been finalized as MRSA along with Acinetobacter 3patient local wound care to continue with medahoney followed by moist dressing to be changed daily and keep the area off the pressure 4- patient slowly clinically improving and will continue with daptomycin and Unasyn and monitor clinical course closely Time with Patient: Less than 30
--- NOTE | 2021-11-28 17:57 | P.PN ---
Subjective Progress Note Date: 11/28/21 Principal diagnosis: Right heel diabetic wound infection Patient is a 61 year old male with a past medical history significant for left [id number] amputation in this patient with underlying diabetes presenting to the hospital with a nonhealing wound to the right heel and concern for secondary infection, patient did have MRI completed on 11/10/2021 with no evidence of osteomyelitis. The patient is status post surgical debridement of his right heel wound completed on 11/13/2021 with evidence of extension of the wound down to the wound On today's evaluation that is 11/28/2021, the patient denies any fever or any chills, patient is breathing comfortably on nasal cannula oxygen, the patient denies having any chest pain, patient did have occasional dry cough , the patient denies abdominal pain or diarrhea Objective - Vital Signs Vital signs: Vital Signs Temp 98.0 F 11/28/21 08:00 Pulse 78 11/28/21 08:00 Resp 18 11/28/21 08:44 BP 169/72 11/28/21 08:00 Pulse Ox 93 L 11/28/21 08:00 Intake & Output 11/27/21 11/28/21 11/28/21 18:59 06:59 18:59 Intake Total 460 150 Output Total 1815 800 501 Balance -1813 -340 -221 Weight 117.4 kg Intake: Oral 460 150 Output: Urine 1815 800 500 Stool 1 Other: Voiding Method Urinal Urinal Urinal # Bowel Movements 1 - Exam GENERAL DESCRIPTION: Middle-aged male lying in bed in no distress RESPIRATORY SYSTEM: Unlabored breathing , decreased breath sounds at bases HEART: S1 S2 regular rate and rhythm , ABDOMEN: Soft , no tenderness EXTREMITIES: Right lateral heel wound did have some slough tissue some surrounding redness no foul-smelling drainage - Labs CBC & Chem 7: 11/27/21 06:14 11/28/21 08:35 Labs: Abnormal Lab Results - Last 24 Hours (Table) 11/27/21 11/27/21 11/28/21 Range/Units 16:31 20:13 07:01 POC Glucose (mg/dL) 257 H 235 H 188 H (75-99) mg/dL 11/28/21 Range/Units 11:45 POC Glucose (mg/dL) 247 H (75-99) mg/dL Microbiology - Last 24 Hours (Table) 11/27/21 09:42 Gram Stain - Preliminary Sputum Sputum Culture - Preliminary 11/24/21 21:48 Blood Culture - Preliminary Blood No Growth after 72 hours Assessment and Plan (1) Decubitus ulcer of foot Current Visit: Yes Status: Acute Code(s): L89.899 - PRESSURE ULCER OF OTHER SITE, UNSPECIFIED STAGE SNOMED Code(s): 3071830178 Plan: 1patient with right lateral heel/foot area diabetic foot ulcer started with debridement of the callus by his general counsel few weeks 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 2 the patient did have surgical debridement with evidence of wound extended down to the board concerning for acute bacterial Osteomyelitis and deep culture has been finalized as MRSA along with Acinetobacter 3patient local wound care to continue with medahoney followed by moist dressing to be changed daily and keep the area off the pressure 4- patient clinical condition remains to be stable, the patient will continue with daptomycin and Unasyn and continue supportive care Time with Patient: Less than 30
[2021-11-28 20:59] LABS: Glucose,Whole Blood 255 mg/dL (75-99)
[2021-11-29] MEDS: HEPARIN SODIUM,PORCINE/PF 5,000 UNIT/0.5 ML SYRINGE SQ SCH ×3 (00:08→14:55)
[2021-11-29] MEDS: ALPRAZolam 0.25 MG TAB PO PRN (00:39)
[2021-11-29] MEDS: IPRATROPIUM-ALBUTEROL 3 ML NEB INHALATION SCH ×7 (01:11→23:13)
[2021-11-29] MEDS: AMPICILLIN-SULBACTAM 3 GM in SODIUM CHLORIDE 0.9% 100 ML IVPB SCH ×4 (02:40→21:40)
[2021-11-29] MEDS: oxyCODONE-APAP 10-325MG 1 EACH TAB PO PRN ×5 (02:40→23:19)
[2021-11-29] MEDS: BUMETANIDE 0.25 MG/ML 10 ML VIAL IV SCH ×2 (05:07→17:32)
[2021-11-29 06:49] LABS: Glucose,Whole Blood 132 mg/dL (75-99)
[2021-11-29] MEDS: INSULIN ASPART (NovoLOG) 100 UNIT/ML VIAL SQ SCH ×4 (07:07→20:10)
[2021-11-29] MEDS: hydrALAZINE HCL 50 MG TAB PO SCH ×3 (08:05→23:18)
[2021-11-29] MEDS: GABAPENTIN 100 MG CAP PO SCH ×2 (08:05→21:03)
[2021-11-29] MEDS: carvediloL 12.5 MG TAB PO SCH ×2 (08:05→17:37)
[2021-11-29] MEDS: TAMSULOSIN 0.4 MG CAP.ER.24H PO SCH (08:05)
[2021-11-29] MEDS: TICAGRELOR 90 MG TAB PO SCH ×2 (08:06→21:04)
[2021-11-29] MEDS: levETIRAcetam 500 MG TAB PO SCH ×2 (08:06→21:04)
[2021-11-29] MEDS: INSULIN DETEMIR (LEVEMIR) 100 UNIT/ML SYR SQ SCH ×2 (08:07→21:03)
--- NOTE | 2021-11-29 10:31 | P.PN ---
Subjective Patient is seen in follow for acute kidney injury. Renal function stable. Maintained on IV Bumex. Nonoliguric. Oral intake is good. No vomiting or diarrhea. Denies chest pain or shortness of breath. Hemodynamically stable. No active complaints. Vital signs are stable. General: Awake and alert. No acute distress. HEENT: Head exam is unremarkable. LUNGS: Breath sounds decreased. HEART: Rate and Rhythm are regular. ABDOMEN: Soft, obese. EXTREMITITES: BKA noted. Right foot wrapped. No drainage. Chronic changes noted. Objective - Vital Signs Vital signs: Vital Signs Temp 98.7 F 11/29/21 07:45 Pulse 78 11/29/21 07:45 Resp 20 11/29/21 09:04 BP 157/68 11/29/21 07:45 Pulse Ox 95 11/29/21 07:45 Intake & Output 11/28/21 11/29/21 11/29/21 18:59 06:59 18:59 Intake Total 350 Output Total 501 676 Balance -151 -676 Weight 117.4 kg Intake: Oral 350 Output: Urine 500 675 Stool 1 1 Other: Voiding Method Urinal Urinal Urinal # Bowel Movements 1 1 - Labs CBC & Chem 7: 11/27/21 06:14 11/28/21 08:35 Labs: Abnormal Lab Results - Last 24 Hours (Table) 11/28/21 11/28/21 11/28/21 Range/Units 08:35 11:45 16:15 BUN 36.1 H (9.0-27.0) mg/dL Creatinine 1.8 H (0.6-1.5) mg/dL Est GFR (CKD-EPI)AfAm 47.7 L (60.0-200.0) Est GFR (CKD-EPI)NonAf 41.1 L (60.0-200.0) BUN/Creatinine Ratio 20.63 H (12.00-20.00) Ratio Glucose 233 H (70-110) mg/dL POC Glucose (mg/dL) 247 H 237 H (75-99) mg/dL Calcium 7.8 L (8.7-10.3) mg/dL 11/28/21 11/29/21 Range/Units 20:54 06:48 BUN (9.0-27.0) mg/dL Creatinine (0.6-1.5) mg/dL Est GFR (CKD-EPI)AfAm (60.0-200.0) Est GFR (CKD-EPI)NonAf (60.0-200.0) BUN/Creatinine Ratio (12.00-20.00) Ratio Glucose (70-110) mg/dL POC Glucose (mg/dL) 255 H 132 H (75-99) mg/dL Calcium (8.7-10.3) mg/dL Microbiology - Last 24 Hours (Table) 11/27/21 09:42 Gram Stain - Final Sputum Sputum Culture - Preliminary 11/24/21 21:48 Blood Culture - Preliminary Blood No Growth after 96 hours Assessment and Plan Plan: Assessment: 1. Acute kidney injury mostly prerenal secondary to cardiorenal syndrome and infection. Creatinine 1.8 yesterday. Unknown baseline renal function. Etiology is likely diabetic kidney disease. Kidney ultrasound showed no evidence of hydronephrosis. 2. Right foot nonhealing wound. Status post debridement 11/13/2021. Vascular surgery and infectious disease following. Wound culture positive for Acinetobacter and MRSA. 3. Status post left BKA. 4. Diabetes mellitus. 5. Anemia. s/p IV iron. No active bleeding. On Aranesp. 6. Benign hypertension. 7. Metabolic acidosis secondary to acute kidney injury and IV fluids. On oral bicarbonate. Resolved. 8. Volume overload. Improving with diuresis. 9. Urinary retention. Poole catheter removed. On Flomax. Plan: Maintain IV Bumex - transition to oral diuretics tomorrow. Avoid nephrotoxins. Encourage oral intake. 1500 mL fluid restriction. Increase dose of hydralazine further. Continue to monitor renal function and urine output. Follow-up morning labs. Discussed with the patient that he will need to follow-up outpatient to establish CKD care and for further workup of proteinuria.
[2021-11-29 11:13] LABS: Magnesium 2.4 mg/dL (1.5-2.4)
[2021-11-29 11:18] LABS: Glucose,Whole Blood 218 mg/dL (75-99)
[2021-11-29 11:19] LABS: African American GFR (CKD) 46.1 (60.0-200.0); Anion Gap 9.6 mmol/L (10.00-18.00); BUN/Creat Ratio 18.33 Ratio (12.00-20.00); Calcium 8.4 mg/dL (8.7-10.3); Carbon Dioxide 28.7 mmol/L (20.0-27.5); Non-African American GFR(CKD) 39.7 (60.0-200.0); Potassium 4.3 mmol/L (3.5-5.5)
[2021-11-29] MEDS: DAPTOmycin 500 MG in SODIUM CHLORIDE 0.9% 50 ML IVPB SCH (11:45)
[2021-11-29] MEDS: BENZOCAINE/MENTHOL LOZENG 1 EACH LOZENGE MUCOUS MEM PRN (13:25)
--- NOTE | 2021-11-29 14:33 | P.PN ---
Subjective Progress Note Date: 11/29/21 Principal diagnosis: Right foot wound infection Feeling better states that he is ready for rehab. No pain. No sob. Objective - Vital Signs Vital signs: Vital Signs Temp 98.8 F 11/29/21 13:56 Pulse 88 11/29/21 13:56 Resp 19 11/29/21 13:56 BP 129/68 11/29/21 13:56 Pulse Ox 91 L 11/29/21 13:56 Intake & Output 11/28/21 11/29/21 11/29/21 18:59 06:59 18:59 Intake Total 350 475 Output Total 501 676 Balance -151 -201 Weight 117.4 kg Intake: Oral 350 475 Output: Urine 500 675 Stool 1 1 Other: Voiding Method Urinal Urinal Urinal # Bowel Movements 1 1 - Exam Gen: awake, alert HEENT: normocephalic, atraumatic, good hearing acuity, moist mucous membranes Resp: good air exchange, breathing comfortably with no accessory muscle use CVS: good distal perfusion x 4, GI: soft, NTTP, ND : no SPT, no CVAT, he catheter not present MSK: + pitting edema, no clubbing, left AKA, right foot wounds with dressings applied Neuro: non-focal, moving all extremities Psych: cooperative, euthymic mood - Labs CBC & Chem 7: 11/27/21 06:14 11/29/21 07:07 Labs: Abnormal Lab Results - Last 24 Hours (Table) 11/28/21 11/28/21 11/28/21 Range/Units 08:35 16:15 20:54 Carbon Dioxide (20.0-27.5) mmol/L Anion Gap (10.00-18.00) mmol/L BUN 36.1 H (9.0-27.0) mg/dL Creatinine 1.8 H (0.6-1.5) mg/dL Est GFR (CKD-EPI)AfAm 47.7 L (60.0-200.0) Est GFR (CKD-EPI)NonAf 41.1 L (60.0-200.0) BUN/Creatinine Ratio 20.63 H (12.00-20.00) Ratio Glucose 233 H (70-110) mg/dL POC Glucose (mg/dL) 237 H 255 H (75-99) mg/dL Calcium 7.8 L (8.7-10.3) mg/dL 11/29/21 11/29/21 11/29/21 Range/Units 06:48 07:07 11:15 Carbon Dioxide 28.7 H (20.0-27.5) mmol/L Anion Gap 9.60 L (10.00-18.00) mmol/L BUN 33.0 H (9.0-27.0) mg/dL Creatinine 1.8 H (0.6-1.5) mg/dL Est GFR (CKD-EPI)AfAm 46.1 L (60.0-200.0) Est GFR (CKD-EPI)NonAf 39.7 L (60.0-200.0) BUN/Creatinine Ratio (12.00-20.00) Ratio Glucose (70-110) mg/dL POC Glucose (mg/dL) 132 H 218 H (75-99) mg/dL Calcium 8.4 L (8.7-10.3) mg/dL Microbiology - Last 24 Hours (Table) 11/27/21 09:42 Gram Stain - Final Sputum Sputum Culture - Preliminary 11/24/21 21:48 Blood Culture - Preliminary Blood No Growth after 96 hours Assessment and Plan Plan: #Acute respiratory distress with alteration in mental status, encephalopathy #Acute on chronic hypoxic and hypercarbic respiratory failure likely due to underlying COPD/emphysema, obesity sleep apnea, medications ABG showed severe hypercarbic respiratory failure with pH of 7.1 and pCO2 of 79 Improved with BIPAP, now on 5L NC Chest x-ray no significant changes previous chest x-ray Continue with supplemental oxygen and BiPAP when necessary Bumex IV switch to oral in am, breathing treatments, systemic steroids Discontinued Neurontin and morphine, may continue low-dose Percocet when necessary, will decrease the frequency #Right diabetic foot infection with right heel wound with osteomyelitis in the setting of peripheral arterial disease Status post incision and drainage Vascular surgery following Plan for IV antibiotics via PICC line for 6 weeks: Daptomycin and Unasyn Infectious disease following, wound care following #Acute on chronic kidney injury #Urinary Retention Likely underlying diabetic nephropathy, with acute component sec to infection and cardiorenal syndrome Renal U/s ok. nephrology currently following Currently with indwelling He catheter, Flomax Needs CKD follow up #Type 2 diabetes mellitus with stress hyperglycemia diabetic neuropathy and nephropathy A1c 8.9 Continue to adjust his insulin, increased Levemir to 20 units twice a day #History of CVA On statin and Brillinta #Severe peripheral vascular disease History of left BKA Vascular surgery following, continue antiplatelets #Severe peripheral edema Venous duplex lower extremities negative for DVT 2
[2021-11-29 15:55] LABS: Glucose,Whole Blood 284 mg/dL (75-99)
[2021-11-29 15:55] LABS: Glucose,Whole Blood 243 mg/dL (75-99)
--- NOTE | 2021-11-29 16:51 | P.PN ---
Subjective Progress Note Date: 11/29/21 This is a 61-year-old male patient who was originally admitted on 11/09/2021 for right foot non-healing ulcer. The patient does have a history of diabetes mellitus, CVA/TIA, seizures, hypertension, below the knee amputation of the left leg. Chronic and ongoing tobacco dependence. He had recently moved here from [place] about 2 weeks ago. MRA of the right foot revealed a cutaneous ulcer defect in the lateral aspect of the calcaneus. There is surrounding edema. Soft tissue edema the foot. No fracture. No evidence of osteomyelitis. Cultures were positive for Citrobacter Disla and MRSA. ID is on the case and he is currently on Unasyn and daptomycin. Earlier today the patient developed a rather acute episode of shortness of breath and hypoxemia and a rapid response team was called. Chest x-ray revealed right-sided PICC line in place. Interstitial changes within the lungs with no evidence of pneumothorax or pleural effusion. He was placed on BiPAP initially 16/6 and 100% FiO2 and arterial blood gases revealed a pO2 of 171, pCO2 of 79, pH 7.14. He was decreased to 60% FiO2. He was transferred to the intensive care unit. He is seen there today in consultation. He is arousable. Follow-up blood gases revealed a pO2 of 97, pCO2 of 55 and a pH of 7.28 on the 60% FiO2. He was given an extra dose of IV Bumex. Initiated on IV Solu-Medrol and continued on DuoNeb inhalations. He is on heparin for DVT prophylaxis. He is currently maintaining O2 saturations in the 90s. He is hemodynamically stable. White count 14.5. Hemoglobin 9.7. Platelets 287. D-dimer was 7.95. Sodium 143. Potassium 5.3. BUN of 36. Creatinine of 2.74. Troponin negative 1. The patient is seen today 11/23/2021 in follow-up in the intensive care unit. He is much more awake and alert. Currently on 5 L high flow nasal cannula with O2 saturation the 90s. He did stay on BiPAP throughout the evening and 16/6 and 40% FiO2. No IV fluids. Repeat Doppler of the lower extremities did not reveal any significant DVT. Right foot wound is positive for MRSA and Acinetobacter Karma. He remains on daptomycin and Unasyn. Heparin for DVT prophylaxis. White count 8.2. Hemoglobin 8.4. Sodium 140 para potassium 5.3. BUN 48. Creatinine 2.72. Currently in a -720 ML balance. The patient is seen today 11/24/2021 in follow-up in the intensive care unit. He is currently sitting up in bed. Awake and alert in no acute distress. He is maintaining O2 saturations in the 90s on 5 L high flow nasal cannula. He did utilize the BiPAP 12/6 and 40% FiO2 throughout the night. He denies any w orsening shortness of breath, cough or congestion. No IV fluids currently. He is continued on bronchodilators, antibiotics in the form of Unasyn and daptomycin. Heparin for DVT prophylaxis. White count 10.1. Hemoglobin 8.7. Platelets 249. Sodium 141. Potassium 4.8. BUN 56. Creatinine 2.37. Remains in a negative balance of 582 ML's. Continued on Bumex 1 mg IV every 12 hours. The patient is seen today 11/25/2021 in follow-up on the regular medical floor. He is currently sitting up in a chair at the bedside. Awake and alert in no acute distress. Last night he had a bit of anxiety and was placed back on the BiPAP 16/6 and 60% FiO2. Arterial blood gases on 50% FiO2 revealed a pO2 of 56, pCO2 53, pH 7.32. He is on 6 L high flow nasal cannula currently. He has been slow to progress. Chest x-ray continued shows pulmonary interstitial and airspace edema. White count 9.0. Hemoglobin 8.7. Platelets 247. Sodium 144. Potassium 4.6. BUN 50. Creatinine 2.0. Glucose 248. Pro-calcitonin 1.07. He is continued on daptomycin and Unasyn per ID services. Continue bronchodilat ors. Heparin for DVT prophylaxis. On 11/26/2021 patient seen in follow-up on medical surgical floor. He is awake and alert, he is sitting up in the recliner, breathing comfortably, he is currently on 6 L of oxygen per nasal cannula, he did wear BiPAP support last night with pressures of 16/6 and FiO2 of 40%, he is on point, saying that over to 20 ML per hour, no other drips, he remains on daptomycin and Unasyn for evidence of MRSA and Acetobacter Bbaumanii on The Nonhealing Ulcer of the Right Heel Status Post Surgical Debridement on 11/15/2021. Last chest x-ray was done on 11/24/2021 point patchy pulmonary edema which was increased compared to his previous chest x-ray and a right pleural effusion which also appeared increased. Patient is currently on IV Bumex at 2 mg every 12 hours, and extensively diuresing, and he is in -3 L and 75 ML over the last 24 hours. No altered mentation, he is answering questions appropriately, seems to breathing comfortably, no complaints of worsening dyspnea cough or chest discomfort. On 11/27/2021 patient is seen in follow-up on medical surgical floor. Patient is sitting up in a recliner, does not appear to be in any acute distress, he wore the BiPAP support part of the night, and requested to go back on it during the day today. Last night she was having episodes of increased shortness of breath and anxiety, he received a dose of Ativan which seemed to help him, he remains on Bumex 2 mg every 12 hours IV push, he is in -1870 amount of fluid balance over the last 24 hours, he remains on 1.5 L fluid restriction over the last 24 hours, he is currently on 6 L of oxygen pulse ox is 93%. No fever or chills, vital signs have been stable. Chest x-ray today showing cardiomegaly with bilateral multifocal opacities no significant change from most recent study. On 11/28/2021 patient seen in follow-up on medical surgical floor. He is sitt ing up in the recliner, he states his breathing is better, still having some chest congestion, and he is bringing up some green colored phlegm. She did wear BiPAP support at night, with pressures of 16/6 and FiO2 of 40%, and he does requested during the day periodically for periods of increased shortness of breath. Otherwise he states he does feel better, he is a diuresing, he is a - 2155 milk the fluid balance over the last 24 hours, remains on Bumex 2 mg every 12 hours, he remains on ampicillin/sulbactam and daptomycin per ID service recommendations, vital signs have been stable, his been afebrile. His right foot wound culture showed Acetobacter Mariangel any, and right heel culture showe d MRSA and anaerobic gram-negative bacilli. His pro-calcitonin was improving a couple days ago. Renal profile was improving on yesterday's labs, today's labs are still pending. 11/21/2021, the patient is stable and no new complaints. He reports improvement in his shortness of breath and the patient is currently on 5 L O2 nasal cannula. Remains on the same antibiotic coverage which included a combination of daptomycin and Unasyn. Afebrile. Renal function is stable and the creatinine is at 1.8. The patient is still on Bumex 2 mg IV every 12 hours. No other significant events otherwise for now. The patient is being seen by various consultants including nephrology and infectious disease. The patient is currently off the BiPAP. He is using the BiPAP only overnight. Vascular surg myra is on the case. He is on Levemir insulin 20 units twice a day for blood sugar control. Objective - Vital Signs Vital signs: Vital Signs Temp 98.8 F 11/29/21 13:56 Pulse 88 11/29/21 13:56 Resp 19 11/29/21 13:56 BP 129/68 11/29/21 13:56 Pulse Ox 91 L 11/29/21 13:56 Intake & Output 11/28/21 11/29/21 11/29/21 18:59 06:59 18:59 Intake Total 350 475 Output Total 501 676 Balance -151 -201 Weight 117.4 kg Intake: Oral 350 475 Output: Urine 500 675 Stool 1 1 Other: Voiding Method Urinal Urinal Urinal # Bowel Movements 1 1 - Exam GENERAL EXAM: Alert, very pleasant, 61-year-old white male, 5 L of oxygen sitting up in the recliner, in no acute distress, comfortable in no apparent distress. HEAD: Normocephalic/atraumatic. EYES: Normal reaction of pupils, equal size. Conjunctiva pink, sclera white. NOSE: Clear with pink turbinates. THROAT: No erythema or exudates. NECK: No masses, no JVD, no thyroid enlargement, no adenopathy. CHEST: No chest wall deformity. Symmetrical expansion. LUNGS: Equal air entry with diffuse rhonchi CVS: Regular rate and rhythm, normal S1 and S2, no gallops, no murmurs, no rubs ABDOMEN: Soft, nontender. No hepatosplenomegaly, normal bowel sounds, no guarding or rigidity. EXTREMITIES: No clubbing, no edema, no cyanosis, 2+ pulses and upper and lower extremities. Right lower extremity is covered with a surgical dressing, clean dry and intact. MUSCULOSKELETAL: Muscle strength and tone normal. SPINE: No scoliosis or deformity SKIN: No rashes CENTRAL NERVOUS SYSTEM: Alert and oriented -3. No focal deficits, tone is normal in all 4 extremities. PSYCHIATRIC: Alert and oriented -3. Appropriate affect. Intact judgment and insight. - Labs CBC & Chem 7: 11/27/21 06:14 11/29/21 07:07 Labs: Abnormal Lab Results - Last 24 Hours (Table) 11/28/21 11/29/21 11/29/21 Range/Units 20:54 06:48 07:07 Carbon Dioxide 28.7 H (20.0-27.5) mmol/L Anion Gap 9.60 L (10.00-18.00) mmol/L BUN 33.0 H (9.0-27.0) mg/dL Creatinine 1.8 H (0.6-1.5) mg/dL Est GFR (CKD-EPI)AfAm 46.1 L (60.0-200.0) Est GFR (CKD-EPI)NonAf 39.7 L (60.0-200.0) POC Glucose (mg/dL) 255 H 132 H (75-99) mg/dL Calcium 8.4 L (8.7-10.3) mg/dL 11/29/21 11/29/21 11/29/21 Range/Units 11:15 15:51 15:52 Carbon Dioxide (20.0-27.5) mmol/L Anion Gap (10.00-18.00) mmol/L BUN (9.0-27.0) mg/dL Creatinine (0.6-1.5) mg/dL Est GFR (CKD-EPI)AfAm (60.0-200.0) Est GFR (CKD-EPI)NonAf (60.0-200.0) POC Glucose (mg/dL) 218 H 284 H 243 H (75-99) mg/dL Calcium (8.7-10.3) mg/dL Microbiology - Last 24 Hours (Table) 11/27/21 09:42 Gram Stain - Final Sputum Sputum Culture - Preliminary 11/24/21 21:48 Blood Culture - Preliminary Blood No Growth after 96 hours Assessment and Plan Plan: 1 Acute hypoxemic respiratory failure secondary to suspected fluid volume overload and atelectasis. Elevated d-dimer. Doppler of the lower extremities n egative for DVT, the patient continues to improve and the patient is currently on 5 L O2 nasal cannula. No signs of any respiratory distress. 2 Nonhealing ulcer of the right heel with debridement on 11/15/2021. Cultures positive for MRSA and Acinetobacter baumanii currently on Unasyn and daptomycin 3 Acute renal failure , improving, creatinine stable at 1.8 4 Diabetes mellitus type 2, currently on Levemir insulin 5 Diabetic neuropathy 6 Peripheral vascular disease with previous left below the knee amputation 7 Chronic and ongoing tobacco dependence 8 Hypertension 9 History of seizures Plan: Breathing is improving, wean down the FiO2 gradually to be densities 190% Patient is maintaining negative fluid balance Continue with nebulized bronchodilators Continue diuretics, the patient remains on IV Bumex BiPAP support at bedtime and as needed Encourage deep breathing and coughing, Incentive spirometry use Continue weaning FiO2 to keep O2 sats ration is at or above 92% Follow-up labs tomorrow Patient will need subacute rehab placement in view of multiple complex medical needs requiring long-term care and physical therapy Increase activity as tolerated
[2021-11-29 20:13] LABS: Glucose,Whole Blood 471 mg/dL (75-99)
[2021-11-29 20:52] LABS: Glucose,Whole Blood 280 mg/dL (75-99)
--- NOTE | 2021-11-29 21:49 | P.PN ---
Subjective Progress Note Date: 11/29/21 Principal diagnosis: Right heel diabetic wound infection Patient is a 61 year old male with a past medical history significant for left [id number] amputation in this patient with underlying diabetes presenting to the hospital with a nonhealing wound to the right heel and concern for secondary infection, patient did have MRI completed on 11/10/2021 with no evidence of osteomyelitis. The patient is status post surgical debridement of his right heel wound completed on 11/13/2021 with evidence of extension of the wound down to the wound On today's evaluation that is 11/29/2021, the patient remains to be afebrile, patient is breathing comfortably on nasal cannula oxygen, the patient denies chest pain, patient did have occasional dry cough , the patient denies abdominal pain and no diarrhea Objective - Vital Signs Vital signs: Vital Signs Temp 98.8 F 11/29/21 13:56 Pulse 88 11/29/21 13:56 Resp 19 11/29/21 13:56 BP 129/68 11/29/21 13:56 Pulse Ox 91 L 11/29/21 13:56 Intake & Output 11/28/21 11/29/21 11/29/21 18:59 06:59 18:59 Intake Total 350 475 Output Total 501 676 Balance -151 -201 Weight 117.4 kg Intake: Oral 350 475 Output: Urine 500 675 Stool 1 1 Other: Voiding Method Urinal Urinal Urinal # Bowel Movements 1 1 - Exam GENERAL DESCRIPTION: Middle-aged male lying in bed in no distress RESPIRATORY SYSTEM: Unlabored breathing , decreased breath sounds at bases HEART: S1 S2 regular rate and rhythm , ABDOMEN: Soft , no tenderness EXTREMITIES: Right lateral heel wound did have some slough tissue some surrounding redness no foul-smelling drainage - Labs CBC & Chem 7: 11/27/21 06:14 11/29/21 07:07 Labs: Abnormal Lab Results - Last 24 Hours (Table) 11/28/21 11/28/21 11/28/21 Range/Units 08:35 16:15 20:54 Carbon Dioxide (20.0-27.5) mmol/L Anion Gap (10.00-18.00) mmol/L BUN 36.1 H (9.0-27.0) mg/dL Creatinine 1.8 H (0.6-1.5) mg/dL Est GFR (CKD-EPI)AfAm 47.7 L (60.0-200.0) Est GFR (CKD-EPI)NonAf 41.1 L (60.0-200.0) BUN/Creatinine Ratio 20.63 H (12.00-20.00) Ratio Glucose 233 H (70-110) mg/dL POC Glucose (mg/dL) 237 H 255 H (75-99) mg/dL Calcium 7.8 L (8.7-10.3) mg/dL 11/29/21 11/29/21 11/29/21 Range/Units 06:48 07:07 11:15 Carbon Dioxide 28.7 H (20.0-27.5) mmol/L Anion Gap 9.60 L (10.00-18.00) mmol/L BUN 33.0 H (9.0-27.0) mg/dL Creatinine 1.8 H (0.6-1.5) mg/dL Est GFR (CKD-EPI)AfAm 46.1 L (60.0-200.0) Est GFR (CKD-EPI)NonAf 39.7 L (60.0-200.0) BUN/Creatinine Ratio (12.00-20.00) Ratio Glucose (70-110) mg/dL POC Glucose (mg/dL) 132 H 218 H (75-99) mg/dL Calcium 8.4 L (8.7-10.3) mg/dL Microbiology - Last 24 Hours (Table) 11/27/21 09:42 Gram Stain - Final Sputum Sputum Culture - Preliminary 11/24/21 21:48 Blood Culture - Preliminary Blood No Growth after 96 hours Assessment and Plan (1) Decubitus ulcer of foot Current Visit: Yes Status: Acute Code(s): L89.899 - PRESSURE ULCER OF OTHER SITE, UNSPECIFIED STAGE SNOMED Code(s): 9134136215 Plan: 1patient with right lateral heel/foot area diabetic foot ulcer started with debridement of the 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 2 the patient did have surgical debridement with evidence of wound extended down to the board concerning for acute bacterial Osteomyelitis and deep culture has been finalized as MRSA along with Acinetobacter 3patient local wound care to continue with medahoney followed by moist dressing to be changed daily and keep the area off the pressure 4- patient is slowly clinically improving patient will continue with daptomycin and Unasyn and monitor clinical course closely Time with Patient: Less than 30
[2021-11-30] MEDS: HEPARIN SODIUM,PORCINE/PF 5,000 UNIT/0.5 ML SYRINGE SQ SCH ×2 (00:01→10:26)
[2021-11-30] MEDS: AMPICILLIN-SULBACTAM 3 GM in SODIUM CHLORIDE 0.9% 100 ML IVPB SCH ×2 (01:50→10:26)
[2021-11-30] MEDS: BENZOCAINE/MENTHOL LOZENG 1 EACH LOZENGE MUCOUS MEM PRN (03:51)
[2021-11-30] MEDS: IPRATROPIUM-ALBUTEROL 3 ML NEB INHALATION SCH ×4 (04:12→15:33)
[2021-11-30] MEDS: oxyCODONE-APAP 10-325MG 1 EACH TAB PO PRN ×2 (06:08→10:33)
[2021-11-30] MEDS: INSULIN DETEMIR (LEVEMIR) 100 UNIT/ML SYR SQ SCH (06:09)
[2021-11-30] MEDS: BUMETANIDE 0.25 MG/ML 10 ML VIAL IV SCH (06:10)
[2021-11-30 07:35] LABS: Glucose,Whole Blood 173 mg/dL (75-99)
[2021-11-30 08:17] VITALS: RESP 19
[2021-11-30 10:16] LABS: African American GFR (CKD) 43.1 (60.0-200.0); Anion Gap 12.4 mmol/L (10.00-18.00); Blood Urea Nitrogen 32.3 mg/dL (9.0-27.0); Calcium 8.4 mg/dL (8.7-10.3); Carbon Dioxide 27.6 mmol/L (20.0-27.5); Magnesium 2.6 mg/dL (1.5-2.4); Non-African American GFR(CKD) 37.2 (60.0-200.0); Potassium 4.6 mmol/L (3.5-5.5)
[2021-11-30] MEDS: levETIRAcetam 500 MG TAB PO SCH (10:25)
[2021-11-30] MEDS: hydrALAZINE HCL 50 MG TAB PO SCH (10:25)
[2021-11-30] MEDS: INSULIN ASPART (NovoLOG) 100 UNIT/ML VIAL SQ SCH ×2 (10:25→12:30)
[2021-11-30] MEDS: GABAPENTIN 100 MG CAP PO SCH (10:25)
[2021-11-30] MEDS: TICAGRELOR 90 MG TAB PO SCH ×3 (10:25→10:31)
[2021-11-30] MEDS: TAMSULOSIN 0.4 MG CAP.ER.24H PO SCH (10:25)
[2021-11-30] MEDS: carvediloL 12.5 MG TAB PO SCH (10:25)
[2021-11-30 11:28] LABS: Glucose,Whole Blood 251 mg/dL (75-99)
[2021-11-30] MEDS: DAPTOmycin 500 MG in SODIUM CHLORIDE 0.9% 50 ML IVPB SCH (12:31)
[2021-11-30] MEDS: ALPRAZolam 0.25 MG TAB PO PRN (13:15)
--- NOTE | 2021-11-30 13:35 | P.PN ---
Subjective Progress Note Date: 11/30/21 This is a 61-year-old male patient who was originally admitted on 11/09/2021 for right foot non-healing ulcer. The patient does have a history of diabetes mellitus, CVA/TIA, seizures, hypertension, below the knee amputation of the left leg. Chronic and ongoing tobacco dependence. He had recently moved here from [place] about 2 weeks ago. MRA of the right foot revealed a cutaneous ulcer defect in the lateral aspect of the calcaneus. There is surrounding edema. Soft tissue edema the foot. No fracture. No evidence of osteomyelitis. Cultures were positive for Citrobacter Disla and MRSA. ID is on the case and he is currently on Unasyn and daptomycin. Earlier today the patient developed a rather acute episode of shortness of breath and hypoxemia and a rapid response team was called. Chest x-ray revealed right-sided PICC line in place. Interstitial changes within the lungs with no evidence of pneumothorax or pleural effusion. He was placed on BiPAP initially 16/6 and 100% FiO2 and arterial blood gases revealed a pO2 of 171, pCO2 of 79, pH 7.14. He was decreased to 60% FiO2. He was transferred to the intensive care unit. He is seen there today in consultation. He is arousable. Follow-up blood gases revealed a pO2 of 97, pCO2 of 55 and a pH of 7.28 on the 60% FiO2. He was given an extra dose of IV Bumex. Initiated on IV Solu-Medrol and continued on DuoNeb inhalations. He is on heparin for DVT prophylaxis. He is currently maintaining O2 saturations in the 90s. He is hemodynamically stable. White count 14.5. Hemoglobin 9.7. Platelets 287. D-dimer was 7.95. Sodium 143. Potassium 5.3. BUN of 36. Creatinine of 2.74. Troponin negative 1. The patient is seen today 11/23/2021 in follow-up in the intensive care unit. He is much more awake and alert. Currently on 5 L high flow nasal cannula with O2 saturation the 90s. He did stay on BiPAP throughout the evening and 16/6 and 40% FiO2. No IV fluids. Repeat Doppler of the lower extremities did not reveal any significant DVT. Right foot wound is positive for MRSA and Acinetobacter Ronit. He remains on daptomycin and Unasyn. Heparin for DVT prophylaxis. White count 8.2. Hemoglobin 8.4. Sodium 140 para potassium 5.3. BUN 48. Creatinine 2.72. Currently in a -720 ML balance. The patient is seen today 11/24/2021 in follow-up in the intensive care unit. He is currently sitting up in bed. Awake and alert in no acute distress. He is maintaining O2 saturations in the 90s on 5 L high flow nasal cannula. He did utilize the BiPAP 12/6 and 40% FiO2 throughout the night. He denies any w orsening shortness of breath, cough or congestion. No IV fluids currently. He is continued on bronchodilators, antibiotics in the form of Unasyn and daptomycin. Heparin for DVT prophylaxis. White count 10.1. Hemoglobin 8.7. Platelets 249. Sodium 141. Potassium 4.8. BUN 56. Creatinine 2.37. Remains in a negative balance of 582 ML's. Continued on Bumex 1 mg IV every 12 hours. The patient is seen today 11/25/2021 in follow-up on the regular medical floor. He is currently sitting up in a chair at the bedside. Awake and alert in no acute distress. Last night he had a bit of anxiety and was placed back on the BiPAP 16/6 and 60% FiO2. Arterial blood gases on 50% FiO2 revealed a pO2 of 56, pCO2 53, pH 7.32. He is on 6 L high flow nasal cannula currently. He has been slow to progress. Chest x-ray continued shows pulmonary interstitial and airspace edema. White count 9.0. Hemoglobin 8.7. Platelets 247. Sodium 144. Potassium 4.6. BUN 50. Creatinine 2.0. Glucose 248. Pro-calcitonin 1.07. He is continued on daptomycin and Unasyn per ID services. Continue bronchodilat ors. Heparin for DVT prophylaxis. On 11/26/2021 patient seen in follow-up on medical surgical floor. He is awake and alert, he is sitting up in the recliner, breathing comfortably, he is currently on 6 L of oxygen per nasal cannula, he did wear BiPAP support last night with pressures of 16/6 and FiO2 of 40%, he is on point, saying that over to 20 ML per hour, no other drips, he remains on daptomycin and Unasyn for evidence of MRSA and Acetobacter Bbaumanii on The Nonhealing Ulcer of the Right Heel Status Post Surgical Debridement on 11/15/2021. Last chest x-ray was done on 11/24/2021 point patchy pulmonary edema which was increased compared to his previous chest x-ray and a right pleural effusion which also appeared increased. Patient is currently on IV Bumex at 2 mg every 12 hours, and extensively diuresing, and he is in -3 L and 75 ML over the last 24 hours. No altered mentation, he is answering questions appropriately, seems to breathing comfortably, no complaints of worsening dyspnea cough or chest discomfort. On 11/27/2021 patient is seen in follow-up on medical surgical floor. Patient is sitting up in a recliner, does not appear to be in any acute distress, he wore the BiPAP support part of the night, and requested to go back on it during the day today. Last night she was having episodes of increased shortness of breath and anxiety, he received a dose of Ativan which seemed to help him, he remains on Bumex 2 mg every 12 hours IV push, he is in -1870 amount of fluid balance over the last 24 hours, he remains on 1.5 L fluid restriction over the last 24 hours, he is currently on 6 L of oxygen pulse ox is 93%. No fever or chills, vital signs have been stable. Chest x-ray today showing cardiomegaly with bilateral multifocal opacities no significant change from most recent study. On 11/28/2021 patient seen in follow-up on medical surgical floor. He is sitt ing up in the recliner, he states his breathing is better, still having some chest congestion, and he is bringing up some green colored phlegm. She did wear BiPAP support at night, with pressures of 16/6 and FiO2 of 40%, and he does requested during the day periodically for periods of increased shortness of breath. Otherwise he states he does feel better, he is a diuresing, he is a - 2155 milk the fluid balance over the last 24 hours, remains on Bumex 2 mg every 12 hours, he remains on ampicillin/sulbactam and daptomycin per ID service recommendations, vital signs have been stable, his been afebrile. His right foot wound culture showed Acetobacter Mariangel any, and right heel culture showe d MRSA and anaerobic gram-negative bacilli. His pro-calcitonin was improving a couple days ago. Renal profile was improving on yesterday's labs, today's labs are still pending. 11/29/2021, the patient is stable and no new complaints. He reports improvement in his shortness of breath and the patient is currently on 5 L O2 nasal cannula. Remains on the same antibiotic coverage which included a combination of daptomycin and Unasyn. Afebrile. Renal function is stable and the creatinine is at 1.8. The patient is still on Bumex 2 mg IV every 12 hours. No other significant events otherwise for now. The patient is being seen by various consultants including nephrology and infectious disease. The patient is currently off the BiPAP. He is using the BiPAP only overnight. Vascular surg myra is on the case. He is on Levemir insulin 20 units twice a day for blood sugar control. 11/30/2021, patient is doing well. Sitting up on a chair. No new complaints. Oxidation is stable at 5 L and this can be further weaned down. No new labs. Antibiotic coverage the same. No chest pain. No cough or sputum production. No fever or chills. Objective - Vital Signs Vital signs: Vital Signs Temp 98.6 F 11/30/21 08:00 Pulse 96 11/30/21 08:00 Resp 19 11/30/21 08:00 BP 171/79 11/30/21 08:00 Pulse Ox 97 11/30/21 08:00 Intake & Output 11/29/21 11/30/21 11/30/21 18:59 06:59 18:59 Intake Total 1875 Output Total 1176 5 350 Balance 699 -5 -350 Intake: Oral 1875 Output: Urine 1175 5 350 Stool 1 Other: Voiding Method Urinal # Bowel Movements 1 - Exam GENERAL EXAM: Alert, very pleasant, 61-year-old white male, 5 L of oxygen sitting up in the recliner, in no acute distress, comfortable in no apparent distress. HEAD: Normocephalic/atraumatic. EYES: Normal reaction of pupils, equal size. Conjunctiva pink, sclera white. NOSE: Clear with pink turbinates. THROAT: No erythema or exudates. NECK: No masses, no JVD, no thyroid enlargement, no adenopathy. CHEST: No chest wall deformity. Symmetrical expansion. LUNGS: Equal air entry with diffuse rhonchi CVS: Regular rate and rhythm, normal S1 and S2, no gallops, no murmurs, no rubs ABDOMEN: Soft, nontender. No hepatosplenomegaly, normal bowel sounds, no gua rding or rigidity. EXTREMITIES: No clubbing, no edema, no cyanosis, 2+ pulses and upper and lower extremities. Right lower extremity is covered with a surgical dressing, clean dry and intact. MUSCULOSKELETAL: Muscle strength and tone normal. SPINE: No scoliosis or deformity SKIN: No rashes CENTRAL NERVOUS SYSTEM: Alert and oriented -3. No focal deficits, tone is normal in all 4 extremities. PSYCHIATRIC: Alert and oriented -3. Appropriate affect. Intact judgment and insight. - Labs CBC & Chem 7: 11/27/21 06:14 11/30/21 03:51 Labs: Abnormal Lab Results - Last 24 Hours (Table) 11/29/21 11/29/21 11/29/21 Range/Units 15:51 15:52 20:01 Carbon Dioxide (20.0-27.5) mmol/L BUN (9.0-27.0) mg/dL Creatinine (0.6-1.5) mg/dL Est GFR (CKD-EPI)AfAm (60.0-200.0) Est GFR (CKD-EPI)NonAf (60.0-200.0) Glucose (70-110) mg/dL POC Glucose (mg/dL) 284 H 243 H 471 H (75-99) mg/dL Calcium (8.7-10.3) mg/dL Magnesium (1.5-2.4) mg/dL 11/29/21 11/30/21 11/30/21 Range/Units 20:50 03:51 07:32 Carbon Dioxide 27.6 H (20.0-27.5) mmol/L BUN 32.3 H (9.0-27.0) mg/dL Creatinine 1.9 H (0.6-1.5) mg/dL Est GFR (CKD-EPI)AfAm 43.1 L (60.0-200.0) Est GFR (CKD-EPI)NonAf 37.2 L (60.0-200.0) Glucose 112 H (70-110) mg/dL POC Glucose (mg/dL) 280 H 173 H (75-99) mg/dL Calcium 8.4 L (8.7-10.3) mg/dL Magnesium 2.6 H (1.5-2.4) mg/dL 11/30/21 Range/Units 11:26 Carbon Dioxide (20.0-27.5) mmol/L BUN (9.0-27.0) mg/dL Creatinine (0.6-1.5) mg/dL Est GFR (CKD-EPI)AfAm (60.0-200.0) Est GFR (CKD-EPI)NonAf (60.0-200.0) Glucose (70-110) mg/dL POC Glucose (mg/dL) 251 H (75-99) mg/dL Calcium (8.7-10.3) mg/dL Magnesium (1.5-2.4) mg/dL Microbiology - Last 24 Hours (Table) 11/13/21 12:15 Gram Stain - Final Foot - Right Wound Culture - Final Acinetobacter ronit/haemol 11/24/21 21:48 Blood Culture - Preliminary Blood No Growth after 120 hours Assessment and Plan Plan: 1 Acute hypoxemic respiratory failure secondary to suspected fluid volume overload and atelectasis. Elevated d-dimer. Doppler of the lower extremities negative for DVT, the patient continues to improve and the patient is currently on 5 L O2 nasal cannula. No signs of any respiratory distress. 2 Nonhealing ulcer of the right heel with debridement on 11/15/2021. Cultures positive for MRSA and Acinetobacter baumanii currently on Unasyn and daptomycin 3 Acute renal failure , improving, creatinine stable at 1.8 4 Diabetes mellitus type 2, currently on Levemir insulin 5 Diabetic neuropathy 6 Peripheral vascular disease with previous left below the knee amputation 7 Chronic and ongoing tobacco dependence 8 Hypertension 9 History of seizures Plan: Breathing is improving, wean down the FiO2 gradually to maintain a saturation above 90%, currently on 5 L. Respiratory status is stable. Patient is maintaining negative fluid balance Continue with nebulized bronchodilators Continue diuretics, the patient remains on IV Bumex BiPAP support at bedtime and as needed Encourage deep breathing and coughing, Incentive spirometry use Continue weaning FiO2 to keep O2 sats ration is at or above 92% Follow-up labs tomorrow Patient will need subacute rehab placement in view of multiple complex medical needs requiring half-way care and physical therapy No active pulmonary or critical care issue. Oxygenation should improve gradually. Continues incentive spirometer. Pulmonary critical care services we'll sign off.
--- NOTE | 2021-11-30 13:45 | P.DS ---
Providers Date of admission: 11/09/21 19:36 Expected date of discharge: 11/30/21 Attending physician: Bari Miller MD Consults: 11/09/21 23:51 Consult Physician Urgent Consulting Provider: Estefanía Zhu Consult Reason/Comments: RLE suspected osteo Do you want consulting provider notified?: Yes 11/12/21 11:08 Consult Physician Routine Consulting Provider: Courtney Jara Consult Reason/Comments: NAM Do you want consulting provider notified?: Yes 11/18/21 09:36 Consult Physician Routine Consulting Provider: Pietro David Consult Reason/Comments: Scrotal edema and pain, pt request Do you want consulting provider notified?: Yes 11/22/21 09:44 Consult Physician Routine Consulting Provider: Juan Vences Consult Reason/Comments: Respiratory failure Do you want consulting provider notified?: Yes Primary care physician: Stated None Hospital Course: 61-year-old male patient who was originally admitted on 11/09/2021 for right foot non-healing ulcer. The patient does have a history of diabetes mellitus, CVA/TIA, seizures, hypertension, below the knee amputation of the left leg about 6 months ago, chronic and ongoing tobacco dependence. He had recently moved [facility] from [place] about 2 weeks ago. MRI of the right foot revealed a cutaneous ulcer defect in the lateral aspect of the calcaneus with soft tissue edema in the foot. No fractures. No evidence of osteomyelitis. Cultures were positive for Citrobacter Disla and MRSA. No fever, chills, chest pain, shortness of breath, nausea, vomiting, diarrhea. ID was consulted and patient was started on Unasyn and daptomycin. Due to edema he had Venous duplex lower extremities which was negative for DVT 2 During the hospitalization he developed shortness of breath and hypoxemia and a rapid response team was called. Chest x-ray revealed right-sided PICC line in place. Interstitial changes within the lungs with no evidence of pneumothorax or pleural effusion. He was placed on BiPAP then was transferred to the intensive care unit. Respiratory failure was thought to be due to combination of acute CHF exacerbation plus COPD/emphysema, obesity sleep apnea, medications. He was eventually weaned off bipap and started on NC. Pulm service followed patient. Vascular saw patient, did I and D of the right foot ulcer on 11/13. Cr was always elevated in the range between 1.6-2 during the hospitalization, he was seen by nephro who diagnosed him with acute kidney injury mostly prerenal secondary to cardiorenal syndrome and infection. He also has CKD at baseline likely due to diabetic kidney disease. Kidney ultrasound showed no evidence of hydronephrosis. He also had some urine retnetion and he was placed. Due to swelling in the LEs and likely pulm edema norvasc will be discontinued, h ydralazine was initiated. He is currently stable to discharge to rehab. He was discharged in a stable condition. TIme for discharge 36 min Plan - Discharge Summary Discharge Rx Participant: No New Discharge Prescriptions: New DAPTOmycin [Daptomycin] 500 mg IV DAILY 27 Days #27 each Ampicillin-Sulbactam [Unasyn] 3 gm IVPB Q6HR 27 Days #108 each No Action Insulin Glargine,Hum.rec.anlog [Basaglar Kwikpen U-100] 40 unit SQ HS levETIRAcetam [Keppra] 1,000 mg PO BID amLODIPine [Norvasc] 10 mg PO DAILY Carvedilol [Coreg] 12.5 mg PO BID-W/MEALS Ticagrelor [Brilinta] 90 mg PO BID Ketoconazole 2% Shampoo [Nizoral] 1 applic TOPICAL DIRECTED Insulin Lispro [humaLOG Kwikpen] 15 units SQ AC-TID Discharge Medication List Carvedilol [Coreg] 12.5 mg PO BID-W/MEALS 11/09/21 [History] Insulin Glargine,Hum.rec.anlog [Basaglar Kwikpen U-100] 40 unit SQ HS 11/09/21 [History] Insulin Lispro [humaLOG Kwikpen] 15 units SQ AC-TID 11/09/21 [History] Ketoconazole 2% Shampoo [Nizoral] 1 applic TOPICAL DIRECTED 11/09/21 [History] Ticagrelor [Brilinta] 90 mg PO BID 11/09/21 [History] amLODIPine [Norvasc] 10 mg PO DAILY 11/09/21 [History] levETIRAcetam [Keppra] 1,000 mg PO BID 11/09/21 [History] Ampicillin-Sulbactam [Unasyn] 3 gm IVPB Q6HR 27 Days #108 each 11/30/21 [Rx] DAPTOmycin [Daptomycin] 500 mg IV DAILY 27 Days #27 each 11/30/21 [Rx] Follow up Appointment(s)/Referral(s): Rusty Montalvo DO [STAFF PHYSICIAN] - As Needed [facility] [NON-STAFF] - 1 Week [employer] [NON-STAFF] - (Please contact the [facility] to see if they have an available wheelchair and any other medical equipment needs. ) Teri Chaudhari MD [STAFF PHYSICIAN] - 1 Week Activity/Diet/Wound Care/Special Instructions: *Discharging RN: Glucometer is at [facility] in [facility]. Please make sure he gets it prior to leaving. 1. Weight-bearing status: full weight bearing on the right with concentrating most pressure on the front of the foot. 2. Wound Care: Right lateral calcaneus: Cleanse with normal saline then apply absorptive silver, saline moistened gauze, dry gauze, rolled gauze and secure with paper tape. Change Friday. 3. Bipap: wear HS and as needed. Settings: 16/6, 40% FiO2.
[2021-11-30 14:16] VITALS: BP 142/72; PULSE 87; TEMP 98.7
--- NOTE | 2021-11-30 16:26 | P.PN ---
Subjective Progress Note Date: 11/30/21 Principal diagnosis: Right heel diabetic wound infection Patient is a 61 year old male with a past medical history significant for left [id number] amputation in this patient with underlying diabetes presenting to the hospital with a nonhealing wound to the right heel and concern for secondary infection, patient did have MRI completed on 11/10/2021 with no evidence of osteomyelitis. The patient is status post surgical debridement of his right heel wound completed on 11/13/2021 with evidence of extension of the wound down to the wound On today's evaluation that is 11/30/2021, the patient continues to be afebrile, patient is breathing comfortably on nasal cannula oxygen, the patient denies chest pain shortness of breath or cough, denies abdominal pain no diarrhea. The pain to right heel is currently controlled Objective - Vital Signs Vital signs: Vital Signs Temp 98.7 F 11/30/21 14:00 Pulse 87 11/30/21 14:00 Resp 19 11/30/21 14:00 BP 142/72 11/30/21 14:00 Pulse Ox 95 11/30/21 14:00 Intake & Output 11/29/21 11/30/21 11/30/21 18:59 06:59 18:59 Intake Total 1875 Output Total 1176 5 350 Balance 699 -5 -350 Intake: Oral 1875 Output: Urine 1175 5 350 Stool 1 Other: Voiding Method Urinal # Bowel Movements 1 - Exam GENERAL DESCRIPTION: Middle-aged male lying in bed in no distress RESPIRATORY SYSTEM: Unlabored breathing , decreased breath sounds at bases HEART: S1 S2 regular rate and rhythm , ABDOMEN: Soft , no tenderness EXTREMITIES: Right lateral heel wound did have some slough tissue some surrounding redness no foul-smelling drainage - Labs CBC & Chem 7: 11/27/21 06:14 11/30/21 03:51 Labs: Abnormal Lab Results - Last 24 Hours (Table) 11/29/21 11/29/21 11/29/21 Range/Units 15:51 15:52 20:01 Carbon Dioxide (20.0-27.5) mmol/L BUN (9.0-27.0) mg/dL Creatinine (0.6-1.5) mg/dL Est GFR (CKD-EPI)AfAm (60.0-200.0) Est GFR (CKD-EPI)NonAf (60.0-200.0) Glucose (70-110) mg/dL POC Glucose (mg/dL) 284 H 243 H 471 H (75-99) mg/dL Calcium (8.7-10.3) mg/dL Magnesium (1.5-2.4) mg/dL 11/29/21 11/30/21 11/30/21 Range/Units 20:50 03:51 07:32 Carbon Dioxide 27.6 H (20.0-27.5) mmol/L BUN 32.3 H (9.0-27.0) mg/dL Creatinine 1.9 H (0.6-1.5) mg/dL Est GFR (CKD-EPI)AfAm 43.1 L (60.0-200.0) Est GFR (CKD-EPI)NonAf 37.2 L (60.0-200.0) Glucose 112 H (70-110) mg/dL POC Glucose (mg/dL) 280 H 173 H (75-99) mg/dL Calcium 8.4 L (8.7-10.3) mg/dL Magnesium 2.6 H (1.5-2.4) mg/dL 11/30/21 Range/Units 11:26 Carbon Dioxide (20.0-27.5) mmol/L BUN (9.0-27.0) mg/dL Creatinine (0.6-1.5) mg/dL Est GFR (CKD-EPI)AfAm (60.0-200.0) Est GFR (CKD-EPI)NonAf (60.0-200.0) Glucose (70-110) mg/dL POC Glucose (mg/dL) 251 H (75-99) mg/dL Calcium (8.7-10.3) mg/dL Magnesium (1.5-2.4) mg/dL Microbiology - Last 24 Hours (Table) 11/13/21 12:15 Gram Stain - Final Foot - Right Wound Culture - Final Acinetobacter ronit/haemol 11/24/21 21:48 Blood Culture - Preliminary Blood No Growth after 120 hours Assessment and Plan (1) Decubitus ulcer of foot Status: Acute Code(s): L89.899 - PRESSURE ULCER OF OTHER SITE, UNSPECIFIED STAGE SNOMED Code(s): 2046022188 Plan: 1patient with right lateral heel/foot area diabetic foot ulcer started with debridement of the callus by 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 2 the patient did have surgical debridement with evidence of wound extended down to the board concerning for acute bacterial Osteomyelitis and deep culture has been finalized as MRSA along with Acinetobacter 3patient local wound care to continue with medbernardaoney followed by moist dressing to be changed daily and keep the area off the pressure 4- patient has shown overall clinical improvement and plan is to finish therapy with daptomycin and Unasyn total of 6 weeks including the days he has received antibiotic here with weekly monitoring of CBC BMP a sed rate and a CRP and a close outpatient follow-up Time with Patient: Less than 30
== END 2021-11-30 15:48 | DRG 622 ==
LOC: EC 15:50 → 5NMEDONC 19:36 → 4SSUR 11-11 17:41 → 2SICU 11-22 10:30 → 4SSUR 11-24 11:09
PROVIDERS: ADMIT Internal Medicine; ATTEND Internal Medicine
PROC: 02HV33Z Insertion of Infusion Device into Superior Vena Cava, Percutaneous Approach (ICD-10-PCS; 2021-11-15)
PROC: 0JBQ0ZZ Excision of Right Foot Subcutaneous Tissue and Fascia, Open Approach (ICD-10-PCS; principal; 2021-11-15 15:25)
PROC: 5A09357 Assistance with Respiratory Ventilation, Less than 24 Consecutive Hours, Continuous Positive Airway Pressure (ICD-10-PCS; 2021-11-22)
DX: E11.69 Type 2 diabetes mellitus with other specified complication (principal); I50.33 Acute on chronic diastolic (congestive) heart failure; J69.0 Pneumonitis due to inhalation of food and vomit; J96.21 Acute and chronic respiratory failure with hypoxia; J96.22 Acute and chronic respiratory failure with hypercapnia; E87.2 Acidosis; G93.40 Encephalopathy, unspecified; I13.0 Hypertensive heart and chronic kidney disease with heart failure and stage 1 through stage 4 chronic kidney disease, or unspecified chronic kidney disease; L03.115 Cellulitis of right lower limb; L97.415 Non-pressure chronic ulcer of right heel and midfoot with muscle involvement without evidence of necrosis; M86.171 Other acute osteomyelitis, right ankle and foot; N17.0 Acute kidney failure with tubular necrosis; B95.62 Methicillin resistant Staphylococcus aureus infection as the cause of diseases classified elsewhere; D50.9 Iron deficiency anemia, unspecified; D63.1 Anemia in chronic kidney disease; E11.22 Type 2 diabetes mellitus with diabetic chronic kidney disease; E11.40 Type 2 diabetes mellitus with diabetic neuropathy, unspecified; E11.51 Type 2 diabetes mellitus with diabetic peripheral angiopathy without gangrene; E11.621 Type 2 diabetes mellitus with foot ulcer; E11.628 Type 2 diabetes mellitus with other skin complications; E11.65 Type 2 diabetes mellitus with hyperglycemia; E66.9 Obesity, unspecified; Z68.35 Body mass index [BMI] 35.0-35.9, adult; J43.9 Emphysema, unspecified; E78.5 Hyperlipidemia, unspecified; E87.5 Hyperkalemia; F17.200 Nicotine dependence, unspecified, uncomplicated; F41.9 Anxiety disorder, unspecified; G40.909 Epilepsy, unspecified, not intractable, without status epilepticus; I35.8 Other nonrheumatic aortic valve disorders; G47.33 Obstructive sleep apnea (adult) (pediatric); I87.8 Other specified disorders of veins; M21.371 Foot drop, right foot; M85.80 Other specified disorders of bone density and structure, unspecified site; R33.9 Retention of urine, unspecified; N18.9 Chronic kidney disease, unspecified; N43.3 Hydrocele, unspecified; Z79.02 Long term (current) use of antithrombotics/antiplatelets; Z79.2 Long term (current) use of antibiotics; Z28.310 Unvaccinated for COVID-19; Z79.4 Long term (current) use of insulin; Z79.899 Other long term (current) drug therapy; Z86.73 Personal history of transient ischemic attack (TIA), and cerebral infarction without residual deficits; Z89.512 Acquired absence of left leg below knee; Z91.19 Patient's noncompliance with other medical treatment and regimen; Z99.3 Dependence on wheelchair
CPT/HCPCS: 36415; 36573; 36600; 71045; 71046; 76770; 76870; 80048; 80053; 80061; 80177; 81001; 82140; 82550; 82553; 82728; 82805; 83036; 83540; 83550; 83605; 83735; 83880; 84145; 84484; 85025; 85027; 85379; 85610; 85730; 86140; 87040; 87070; 87075; 87077; 87186; 87205; 93005; 93306; 93922; 93923; 93970; 93975; 94640; 94660; 94760; 96374; 96376; 99285

== ENCOUNTER 2021-11-30 20:25 | Inpatient (IN) | payer MEDICARE ==
--- NOTE | 2021-11-30 20:49 | ED ---
SOB HPI - General Stated Complaint: SOB Time Seen by Provider: 11/30/21 20:41 Source: RN notes reviewed - History of Present Illness Initial Comments: This is a 61-year-old male with a history of diabetes mellitus who presents to the emergency department today after complaining of shortness of breath at [facility]. Patient was actually discharged from the hospital about 3 hours prior to arrival. Patient has BiPAP ordered as needed and apparently had oxygen desaturation down into the low 80s. Upon EMS arrival he was taken off BiPAP and placed on a nasal cannula and was actually better. Apparently the patient was admitted here for diabetic foot infection, cultures were positive for Citrobacter species and MRSA. Patient was treated with Unasyn and daptomycin. Patient is still complaining of right foot pain. Patient states that that has been going on for several weeks. Patient believes he was having a hard time breathing. It sounds as if the patient had edema to both lower extremities while he was here, Norvasc was discontinued for possibility of edema related to the medication. Patient complains shortness of breath but no chest pain. No productive cough. No headache, no fever or chills, no changes in vision or hearing, no sore throat or difficulty with speech, no neck pain, no chest pain, no abdominal pain, no nausea or vomiting, no changes in urination or bowel movements, no numbness or tingling, POSITIVE for ulceration on the heel of the right foot MD Complaint: shortness of breath - Related Data Home Medications Medication Instructions Recorded Confirmed Carvedilol [Coreg] 12.5 mg PO BID-W/MEALS 11/09/21 11/30/21 Ketoconazole 2% Shampoo [Nizoral] 1 applic TOPICAL DIRECTED 11/09/21 11/30/21 Ticagrelor [Brilinta] 90 mg PO BID 11/09/21 11/30/21 levETIRAcetam [Keppra] 1,000 mg PO BID 11/09/21 11/30/21 Previous Rx's Medication Instructions Recorded Ampicillin-Sulbactam [Unasyn] 3 gm IVPB Q6HR 27 Days #108 each 11/30/21 Bumetanide [Bumex] 1 mg PO BID 30 Days #60 tablet 11/30/21 DAPTOmycin [Daptomycin] 500 mg IV DAILY 27 Days #27 each 11/30/21 Gabapentin [Neurontin] 100 mg PO BID 30 Days #60 cap 11/30/21 Insulin Detemir (Levemir) [Levemir] 20 unit SQ DAILY@0700 30 Days #6 ml 11/30/21 Insulin Detemir (Levemir) [Levemir] 20 unit SQ HS 30 Days #6 ml 11/30/21 Insulin Lispro [humaLOG Kwikpen] 5 units SQ AC-TID 30 Days #6 ml 11/30/21 Tamsulosin [Flomax] 0.4 mg PO PC-BRKFST #30 11/30/21 hydrALAZINE HCL [Apresoline] 100 mg PO TID 30 Days #90 tab 11/30/21 Allergies Allergy/AdvReac Type Severity Reaction Status Date / Time No Known Allergies Allergy Verified 11/30/21 23:38 Review of Systems ROS Statement: Those systems with pertinent positive or pertinent negative responses have been documented in the HPI. ROS Other: All systems not noted in ROS Statement are negative. 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), MRSA Date of last positivie culture/infection: 11/11/21 MDRO Source:: Heel-MRSA Additional Past Surgical History / Comment(s): BKA right leg Past Anesthesia/Blood Transfusion Reactions: No Reported Reaction Past Psychological History: No Psychological Hx Reported Smoking Status: Current every day smoker Past Alcohol Use History: None Reported Past Drug Use History: None Reported General Exam - General Exam Comments Initial Comments: Patient appears to be anxious and distressed. However does not appear to be toxic otherwise. Appears to have good skin color. There is no evidence of adam ling. Peripheral pulses are intact.Patient noted to be febrile at 100.4. General appearance: alert, in distress Head exam: Present: atraumatic, normocephalic, normal inspection Eye exam: Present: normal appearance, PERRL, EOMI. Absent: scleral icterus, conjunctival injection, periorbital swelling ENT exam: Present: normal exam, normal oropharynx, mucous membranes moist. Absent: mucous membranes dry Neck exam: Present: normal inspection, full ROM. Absent: tenderness, meningismus, lymphadenopathy Respiratory exam: Present: respiratory distress, accessory muscle use (Patient appears to be anxious, has some pursed lip breathing. Some increased work of breathing with accessory muscle use. There is no rhonchi, no wheezes. Positive Rales noted bibasilar). Absent: wheezes, rales, rhonchi, stridor, chest wall tenderness, decreased breath sounds, prolonged expiratory Cardiovascular Exam: Present: regular rate, normal rhythm, normal heart sounds. Absent: systolic murmur, diastolic murmur, rubs, gallop, clicks GI/Abdominal exam: Present: soft, normal bowel sounds. Absent: distended, te nderness, guarding, rebound, rigid Extremities exam: Present: normal inspection, full ROM, normal capillary refill. Absent: tenderness, pedal edema, joint swelling, calf tenderness Back exam: Absent: normal inspection (Patient is a left BKA. Patient has ulceration with chronic appearing skin changes to the right lower extremity. Ulcer to the heel area. Minimal erythema. Pulses are palpable) Neurological exam: Present: alert, CN II-XII intact, other (Patient appears to be globally confused without evidence of focal neurologic deficit.) Psychiatric exam: Present: normal affect, normal mood Skin exam: Present: warm, dry, intact, normal color. Absent: rash Course Vital Signs 11/30/21 11/30/21 11/30/21 20:45 21:54 23:00 Temperature 100.4 F H Pulse Rate 96 94 97 Respiratory 26 H 26 H 28 H Rate Blood Pressure 194/95 156/64 164/71 O2 Sat by Pulse 94 L 95 98 Oximetry 12/01/21 00:00 Temperature Pulse Rate 90 Respiratory 26 H Rate Blood Pressure 139/93 O2 Sat by Pulse 98 Oximetry - Reevaluation(s) Reevaluation #1: 12/01/21 00:18 Patient was reevaluated several times with the course of stay here in the ER. Patient was acting globally confused was pulling off his oxygen. Patient winces equally have oxygen desaturation down into the 70s. Oxygen would be reapplied and he would come back up into the 90s. Eventually addition was made to apply soft restraints so the patient could have oxygen. I did order BiPAP as the patient does appear to have some level of hypercarbia although this is relatively mild at 56. Patient was reevaluated 4 times between my initial assessment and midnight. Patient was alert but somewhat disoriented. Likely related to hypoxemia. Medical Decision Making - Medical Decision Making Patient presents with mainly shortness of breath. Patient was sent home on a PICC line and antibiotics. Patient has a history of COPD. Patient was to use BiPAP when necessary at medical [place]. However apparently was not tolerating this. Patient noted to be febrile. I'm going to reevaluate the patient with diagnostic workup. We'll add on another set of blood cultures as the patient was admitted here and now has spiked a fever again. Patient noted to have a fever, increased CRP increased ESR, increased BNP 1 he was here. Unasyn was ordered. BiPAP was ordered. ABG ordered as the patient may be hypercarbic. Lasix 60 mg IV push ordered. Nitroglycerin ointment ordered. Patient will require readmission ABG shows partially compensated respiratory acidosis with hypoxemia Case will be discussed with sounds physician hospitalist. Patient appears to have acute CHF exacerbation. Possible worsening infectious process as his CRP, sedimentation rate, white blood cell count are all elevated. Patient also found to be febrile. Case discussed with Gemma from [facility] since admission. Consultation for pulmonary and infectious disease will be placed. supervising physician is Dr. Downing - Lab Data Result diagrams: 11/30/21 21:19 11/30/21 21:19 Lab Results 11/30/21 11/30/21 11/30/21 Range/Units 21:19 21:19 21:19 WBC 13.3 H (3.8-10.6) k/uL RBC 3.10 L (4.30-5.90) m/uL Hgb 8.3 L (13.0-17.5) gm/dL Hct 28.4 L (39.0-53.0) % MCV 91.7 (80.0-100.0) fL MCH 26.8 (25.0-35.0) pg MCHC 29.2 L (31.0-37.0) g/dL RDW 15.0 (11.5-15.5) % Plt Count 336 (150-450) k/uL MPV 7.8 Neutrophils % 84 % Lymphocytes % 5 % Monocytes % 6 % Eosinophils % 4 % Basophils % 0 % Neutrophils # 11.2 H (1.3-7.7) k/uL Lymphocytes # 0.6 L (1.0-4.8) k/uL Monocytes # 0.8 (0-1.0) k/uL Eosinophils # 0.5 (0-0.7) k/uL Basophils # 0.0 (0-0.2) k/uL Hypochromasia Slight ESR 129 H (0-15) mm/hr PT 10.2 (9.0-12.0) sec INR 0.9 (<1.2) APTT 27.6 (22.0-30.0) sec Sample Site ABG pH (7.35-7.45) ABG pCO2 (35-45) mmHg ABG pO2 (83-108) mmHg ABG HCO3 (21-25) mmol/L ABG Total CO2 (19-24) mmol/L ABG O2 Saturation (94-97) % ABG Base Excess mmol/L Asael Test FiO2 % Sodium 140 (137-145) mmol/L Potassium 4.6 (3.5-5.1) mmol/L Chloride 107 (98-107) mmol/L Carbon Dioxide 29 (22-30) mmol/L Anion Gap 4 mmol/L BUN 33 H (9-20) mg/dL Creatinine 1.75 H (0.66-1.25) mg/dL Est GFR (CKD-EPI)AfAm 48 (>60 ml/min/1.73 sqM) Est GFR (CKD-EPI)NonAf 41 (>60 ml/min/1.73 sqM) Glucose 180 H (74-99) mg/dL Plasma Lactic Acid Donny (0.7-2.0) mmol/L Calcium 8.1 L (8.4-10.2) mg/dL Magnesium 2.4 H (1.6-2.3) mg/dL Total Bilirubin 0.5 (0.2-1.3) mg/dL AST 46 (17-59) U/L ALT 18 (4-49) U/L Alkaline Phosphatase 91 (38-126) U/L Ammonia (<30) umol/L Troponin I (0.000-0.034) ng/mL C-Reactive Protein 21.2 H (<1.0) mg/dL NT-Pro-B Natriuret Pep pg/mL Total Protein 6.0 L (6.3-8.2) g/dL Albumin 2.7 L (3.5-5.0) g/dL Coronavirus (PCR) (Not Detectd) Influenza Type A RNA (Not Detectd) Influenza Type B (PCR) (Not Detectd) 11/30/21 11/30/21 11/30/21 Range/Units 21:19 21:19 21:19 WBC (3.8-10.6) k/uL RBC (4.30-5.90) m/uL Hgb (13.0-17.5) gm/dL Hct (39.0-53.0) % MCV (80.0-100.0) fL MCH (25.0-35.0) pg MCHC (31.0-37.0) g/dL RDW (11.5-15.5) % Plt Count (150-450) k/uL MPV Neutrophils % % Lymphocytes % % Monocytes % % Eosinophils % % Basophils % % Neutrophils # (1.3-7.7) k/uL Lymphocytes # (1.0-4.8) k/uL Monocytes # (0-1.0) k/uL Eosinophils # (0-0.7) k/uL Basophils # (0-0.2) k/uL Hypochromasia ESR (0-15) mm/hr PT (9.0-12.0) sec INR (<1.2) APTT (22.0-30.0) sec Sample Site ABG pH (7.35-7.45) ABG pCO2 (35-45) mmHg ABG pO2 (83-108) mmHg ABG HCO3 (21-25) mmol/L ABG Total CO2 (19-24) mmol/L ABG O2 Saturation (94-97) % ABG Base Excess mmol/L Asael Test FiO2 % Sodium (137-145) mmol/L Potassium (3.5-5.1) mmol/L Chloride (98-107) mmol/L Carbon Dioxide (22-30) mmol/L Anion Gap mmol/L BUN (9-20) mg/dL Creatinine (0.66-1.25) mg/dL Est GFR (CKD-EPI)AfAm (>60 ml/min/1.73 sqM) Est GFR (CKD-EPI)NonAf (>60 ml/min/1.73 sqM) Glucose (74-99) mg/dL Plasma Lactic Acid Donny 0.7 (0.7-2.0) mmol/L Calcium (8.4-10.2) mg/dL Magnesium (1.6-2.3) mg/dL Total Bilirubin (0.2-1.3) mg/dL AST (17-59) U/L ALT (4-49) U/L Alkaline Phosphatase (38-126) U/L Ammonia (<30) umol/L Troponin I <0.012 (0.000-0.034) ng/mL C-Reactive Protein (<1.0) mg/dL NT-Pro-B Natriuret Pep 4090 pg/mL Total Protein (6.3-8.2) g/dL Albumin (3.5-5.0) g/dL Coronavirus (PCR) (Not Detectd) Influenza Type A RNA (Not Detectd) Influenza Type B (PCR) (Not Detectd) 11/30/21 11/30/21 11/30/21 Range/Units 21:52 21:52 23:22 WBC (3.8-10.6) k/uL RBC (4.30-5.90) m/uL Hgb (13.0-17.5) gm/dL Hct (39.0-53.0) % MCV (80.0-100.0) fL MCH (25.0-35.0) pg MCHC (31.0-37.0) g/dL RDW (11.5-15.5) % Plt Count (150-450) k/uL MPV Neutrophils % % Lymphocytes % % Monocytes % % Eosinophils % % Basophils % % Neutrophils # (1.3-7.7) k/uL Lymphocytes # (1.0-4.8) k/uL Monocytes # (0-1.0) k/uL Eosinophils # (0-0.7) k/uL Basophils # (0-0.2) k/uL Hypochromasia ESR (0-15) mm/hr PT (9.0-12.0) sec INR (<1.2) APTT (22.0-30.0) sec Sample Site ABG pH (7.35-7.45) ABG pCO2 (35-45) mmHg ABG pO2 (83-108) mmHg ABG HCO3 (21-25) mmol/L ABG Total CO2 (19-24) mmol/L ABG O2 Saturation (94-97) % ABG Base Excess mmol/L Asael Test FiO2 % Sodium (137-145) mmol/L Potassium (3.5-5.1) mmol/L Chloride (98-107) mmol/L Carbon Dioxide (22-30) mmol/L Anion Gap mmol/L BUN (9-20) mg/dL Creatinine (0.66-1.25) mg/dL Est GFR (CKD-EPI)AfAm (>60 ml/min/1.73 sqM) Est GFR (CKD-EPI)NonAf (>60 ml/min/1.73 sqM) Glucose (74-99) mg/dL Plasma Lactic Acid Donny (0.7-2.0) mmol/L Calcium (8.4-10.2) mg/dL Magnesium (1.6-2.3) mg/dL Total Bilirubin (0.2-1.3) mg/dL AST (17-59) U/L ALT (4-49) U/L Alkaline Phosphatase (38-126) U/L Ammonia <9 (<30) umol/L Troponin I (0.000-0.034) ng/mL C-Reactive Protein (<1.0) mg/dL NT-Pro-B Natriuret Pep pg/mL Total Protein (6.3-8.2) g/dL Albumin (3.5-5.0) g/dL Coronavirus (PCR) Not Detected (Not Detectd) Influenza Type A RNA Not Detected (Not Detectd) Influenza Type B (PCR) Not Detected (Not Detectd) 11/30/21 Range/Units 23:40 WBC (3.8-10.6) k/uL RBC (4.30-5.90) m/uL Hgb (13.0-17.5) gm/dL Hct (39.0-53.0) % MCV (80.0-100.0) fL MCH (25.0-35.0) pg MCHC (31.0-37.0) g/dL RDW (11.5-15.5) % Plt Count (150-450) k/uL MPV Neutrophils % % Lymphocytes % % Monocytes % % Eosinophils % % Basophils % % Neutrophils # (1.3-7.7) k/uL Lymphocytes # (1.0-4.8) k/uL Monocytes # (0-1.0) k/uL Eosinophils # (0-0.7) k/uL Basophils # (0-0.2) k/uL Hypochromasia ESR (0-15) mm/hr PT (9.0-12.0) sec INR (<1.2) APTT (22.0-30.0) sec Sample Site Right Radial ABG pH 7.36 (7.35-7.45) ABG pCO2 56 H (35-45) mmHg ABG pO2 58 L* (83-108) mmHg ABG HCO3 31 H (21-25) mmol/L ABG Total CO2 33 H (19-24) mmol/L ABG O2 Saturation 88.9 L (94-97) % ABG Base Excess 5.9 mmol/L Asael Test Yes FiO2 21 % Sodium (137-145) mmol/L Potassium (3.5-5.1) mmol/L Chloride (98-107) mmol/L Carbon Dioxide (22-30) mmol/L Anion Gap mmol/L BUN (9-20) mg/dL Creatinine (0.66-1.25) mg/dL Est GFR (CKD-EPI)AfAm (>60 ml/min/1.73 sqM) Est GFR (CKD-EPI)NonAf (>60 ml/min/1.73 sqM) Glucose (74-99) mg/dL Plasma Lactic Acid Donny (0.7-2.0) mmol/L Calcium (8.4-10.2) mg/dL Magnesium (1.6-2.3) mg/dL Total Bilirubin (0.2-1.3) mg/dL AST (17-59) U/L ALT (4-49) U/L Alkaline Phosphatase (38-126) U/L Ammonia (<30) umol/L Troponin I (0.000-0.034) ng/mL C-Reactive Protein (<1.0) mg/dL NT-Pro-B Natriuret Pep pg/mL Total Protein (6.3-8.2) g/dL Albumin (3.5-5.0) g/dL Coronavirus (PCR) (Not Detectd) Influenza Type A RNA (Not Detectd) Influenza Type B (PCR) (Not Detectd) - EKG Data -: EKG Interpreted by Me EKG Comments: EKG done at 2038 ED attending physician reveals sinus rhythm with rate of 97, possible left atrial enlargement, normal axis, normal intervals, no evidence of acute ST or T- wave changes. Disposition Clinical Impression: Acute exacerbation of CHF (congestive heart failure), Respiratory distress, Hypoxemia, Diabetic infection of right foot, Compensated respiratory acidosis Disposition: ADMITTED IP TO THIS [facility] Condition: Serious Referrals: Jeffrey Smalls DO [Primary Care Provider] - 1-2 days Decision to Admit Reason: Admit from EC Decision Time: 23:56
[2021-11-30] MEDS ORDERED: MORPHINE SULFATE 4 MG/ML SYRINGE IV STA (20:56)
[2021-11-30] MEDS ORDERED: ONDANSETRON 4 MG/2 ML VIAL IVP STA (20:56)
[2021-11-30] MEDS ORDERED: LORazepam 2 MG/ML INJ IV STA ×3 (20:56→23:20)
[2021-11-30 21:29] LABS: Basophils % (A) 0 %; Eosinophils # (A) 0.5 k/uL (0-0.7); Eosinophils % (A) 4 %; HCT 28.4 % (39.0-53.0); HGB 8.3 gm/dL (13.0-17.5); Hypochromasia Slight; Lymphocytes # (A) 0.6 k/uL (1.0-4.8); Lymphocytes % (A) 5 %; MCH 26.8 pg (25.0-35.0); MCHC 29.2 g/dL (31.0-37.0); MCV 91.7 fL (80.0-100.0); Mean Platelet Volume 7.8; Monocytes # (A) 0.8 k/uL (0-1.0); Monocytes % (A) 6 %; Neutrophils # (A) 11.2 k/uL (1.3-7.7); Neutrophils % (A) 84 %; Platelet Count 336 k/uL (150-450); WBC 13.3 k/uL (3.8-10.6)
[2021-11-30 21:38] LABS: INR 0.9 (<1.2); Partial Thromboplastin Time 27.6 sec (22.0-30.0); Prothrombin Time 10.2 sec (9.0-12.0)
[2021-11-30 21:46] LABS: Albumin 2.7 g/dL (3.5-5.0); Calcium 8.1 mg/dL (8.4-10.2); Magnesium 2.4 mg/dL (1.6-2.3); Potassium 4.6 mmol/L (3.5-5.1); Total Bilirubin 0.5 mg/dL (0.2-1.3)
[2021-11-30 22:01] LABS: C Reactive Protein 21.2 mg/dL (<1.0)
[2021-11-30] MEDS ORDERED: oxyCODONE ER 15 MG TAB.ER.12H PO STA (22:03)
--- NOTE | 2021-11-30 22:24 | XR ---
EXAMINATION TYPE: XR chest 1V portable DATE OF EXAM: 11/30/2021 COMPARISON: 11/27/2021 HISTORY: Short of breath TECHNIQUE: FINDINGS: There is pulmonary interstitial and airspace edema. Heart is slightly enlarged. There is bl unting right costophrenic angle. IMPRESSION: Patchy pulmonary edema that could be combined heart failure and RDS. No significant ochoa e compared to recent exam.
[2021-11-30 22:38] LABS: Erythrocyte Sedimentation Rate 129 mm/hr (0-15)
[2021-11-30] MEDS ORDERED: AMPICILLIN-SULBACTAM 3 GM in SODIUM CHLORIDE 0.9% 100 ML IVPB STA (22:53)
[2021-11-30] MEDS ORDERED: FUROSEMIDE 10 MG/ML 10 ML VIAL IV STA (23:18)
[2021-11-30] MEDS ORDERED: NITROGLYCERIN OINT 1 INCH/GM PACKET TOPICAL STA (23:21)
[2021-11-30 23:45] LABS: Allen Test Performed? Yes
[2021-11-30 23:46] LABS: ABG Base Excess 5.9 mmol/L; ABG HCO3 31 mmol/L (21-25); ABG Oxygen Saturation 88.9 % (94-97); ABG PCO2 56 mmHg (35-45); ABG PH 7.36 (7.35-7.45); ABG TCO2 33 mmol/L (19-24)
[2021-11-30 23:52] LABS: ABG PO2 58 mmHg (83-108)
--- NOTE | 2021-12-01 00:02 | XR ---
EXAMINATION TYPE: XR foot limited RT DATE OF EXAM: 11/30/2021 COMPARISON: 11/09/2021 HISTORY: Pain and swelling. Heel ulcer TECHNIQUE: 2 views FINDINGS: There is Achilles calcaneal spurring. There is hyperextension deformity of the little toe. No fracture seen. No focal bone destruction. IMPRESSION: Calcaneal spurring. No evidence of osteomyelitis. No adverse change.
[2021-12-01] MEDS: FUROSEMIDE 10 MG/ML 4 ML VIAL IV SCH ×2 (01:14→12:29)
[2021-12-01] MEDS ORDERED: DAPTOmycin 500 MG in SODIUM CHLORIDE 0.9% 50 ML IVPB SCH (02:00)
[2021-12-01] MEDS: AMPICILLIN-SULBACTAM 3 GM in SODIUM CHLORIDE 0.9% 100 ML IVPB SCH ×4 (05:06→23:07)
[2021-12-01] MEDS: INSULIN ASPART (NovoLOG) 100 UNIT/ML VIAL SQ SCH ×4 (06:02→21:05)
[2021-12-01] MEDS: ENOXAPARIN 40 MG/0.4 ML SYRINGE SQ SCH (08:55)
[2021-12-01] MEDS: levETIRAcetam 500 MG TAB PO SCH ×2 (10:34→21:05)
[2021-12-01] MEDS: hydrALAZINE HCL 50 MG TAB PO SCH ×3 (10:34→21:08)
[2021-12-01] MEDS: GABAPENTIN 100 MG CAP PO SCH ×2 (10:34→21:05)
[2021-12-01 10:53] VITALS: BMI 30.4
--- NOTE | 2021-12-01 11:48 | P.CNPUL ---
History of Present Illness Consult date: 12/01/21 Reason for consult: dyspnea History of present illness: This 61-year-old male patient with discharge yesterday, within 3 hours of being at the medical [facility], he became short of breath and he was brought back to the hospital. He was placed on a BiPAP and the patient was pulse oxing in the low 80s. Noted at time of discharge, he was on 5 L of O2 by nasal cannula. He was placed on a BiPAP and the patient continues to be on a BiPAP for now at a pressure of 16/6 with an FiO2 of 40%. He has a very complicated history. He has bilateral pulmonary infiltrates consistent with pneumonia/CHF/fluid. At the same time, the patient has had nonhealing ulcer of the right heel and debridement was done on 11/15/2021 and the cultures were positive for MRSA and Acinetobacter and the patient was completing a course of Unasyn and that the last that was being given to him to a PICC line day right upper extremity. He also developed acute kidney failure and the renal function was continued to improve and the creatinine is currently at 1.7. Is known to have diabetes mellitus type 2, diabetic neuropathy, nephropathy, peripheral vascular disease, please see dictation of the left below the knee, COPD, chronic smoking, hypertension, and history of seizure disorder. The patient is currently awake and responsive. Is tolerating his BiPAP. Blood gases was done yesterday when he arrived in the patient's pH was at 7.36 with a pCO2 of 56 and pO2 58. Troponins were 0.02 and 0.01 respectively 2. COVID 19 testing was negative. Influenza screen was negative. The rest of the blood work showed a white cell count of 13.3 with a hemoglobin of 8.3 and platelet count of 336. BUN was 33 with a CAT scan of 1.75, sodium is 140, proBNP level was 4090. As for the chest x-ray, the findings are essentially stable and unchanged and the patient patchy pulmonary edema/CHF or along with stability of consolidations which could be potentially related to underlying pneumonia also. He has had a. His echocardiogram that showed borderline concentric LVH, LV ejection fraction was around 60-65%, RV was mildly enlarged, no pericardial effusion, no valvular abnormalities. Review of Systems CONSTITUTIONAL: Denies any recent significant weight loss or weight gain. EYES: Denies change in vision. EARS, NOSE, MOUTH, THROAT: Denies headaches, denies sore throat. CARDIOVASCULAR: Denies chest pain, palpitations or syncopal episodes. RESPIRATORY: Positive for shortness of breath, no cough, congestion or hemoptysis. GASTROINTESTINAL: Denies change in appetite, denies abdominal pain GENITOURINARY: Denies hematuria, denies infections. MUSKULOSKELETAL: Denies pain, denies swelling. INTEGUMENTARY: Nonhealing ulcer of the right heel. NEUROLOGICAL: Denies recent memory loss, no recent seizure activity. PSYCHIATRIC: Denies anxiety, denies depression. HEMATOLOGIC/LYMPHATIC: Denies anemia, denies enlarged lymph nodes. 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), MRSA Date of last positivie culture/infection: 11/11/21 MDRO Source:: Heel-MRSA Additional Past Surgical History / Comment(s): BKA right leg Past Anesthesia/Blood Transfusion Reactions: No Reported Reaction Past Psychological History: No Psychological Hx Reported Smoking Status: Current every day smoker Past Alcohol Use History: None Reported Past Drug Use History: None Reported Medications and Allergies Home Medications Medication Instructions Recorded Confirmed Type Carvedilol [Coreg] 12.5 mg PO BID-W/MEALS 11/09/21 11/30/21 History Ketoconazole 2% Shampoo [Nizoral] 1 applic TOPICAL DIRECTED 11/09/21 11/30/21 History Ticagrelor [Brilinta] 90 mg PO BID 11/09/21 11/30/21 History levETIRAcetam [Keppra] 1,000 mg PO BID 11/09/21 11/30/21 History Ampicillin-Sulbactam [Unasyn] 3 gm IVPB Q6HR 27 Days #108 each 11/30/21 11/30/21 Rx Bumetanide [Bumex] 1 mg PO BID 30 Days #60 tablet 11/30/21 11/30/21 Rx DAPTOmycin [Daptomycin] 500 mg IV DAILY 27 Days #27 each 11/30/21 11/30/21 Rx Gabapentin [Neurontin] 100 mg PO BID 30 Days #60 cap 11/30/21 11/30/21 Rx Insulin Detemir (Levemir) [Levemir] 20 unit SQ DAILY@0700 30 Days #6 ml 11/30/21 11/30/21 Rx Insulin Detemir (Levemir) [Levemir] 20 unit SQ HS 30 Days #6 ml 11/30/21 11/30/21 Rx Insulin Lispro [humaLOG Kwikpen] 5 units SQ AC-TID 30 Days #6 ml 11/30/21 11/30/21 Rx Tamsulosin [Flomax] 0.4 mg PO PC-BRKFST #30 11/30/21 11/30/21 Rx hydrALAZINE HCL [Apresoline] 100 mg PO TID 30 Days #90 tab 11/30/21 11/30/21 Rx Allergies Allergy/AdvReac Type Severity Reaction Status Date / Time No Known Allergies Allergy Verified 11/30/21 23:38 Physical Exam Vitals: Vital Signs Temp Pulse Pulse Resp BP BP Pulse Ox 12/01/21 04:00 98.4 F 14 127/64 93 L 12/01/21 02:00 98.3 F 85 16 129/62 99 12/01/21 01:12 84 20 122/60 98 12/01/21 00:00 90 26 H 139/93 98 11/30/21 23:00 97 28 H 164/71 98 11/30/21 21:54 94 26 H 156/64 95 11/30/21 20:45 100.4 F H 96 26 H 194/95 94 L Intake and Output 11/30/21 12/01/21 12/01/21 22:59 06:59 14:59 Intake Total 10 Output Total 800 550 Balance -790 -550 Intake: IV 10 Invasive Line 1 10 Output: Urine 800 550 Straight 800 Other: Weight 96.162 kg 102 kg 102 kg GENERAL EXAM: Alert, very pleasant, 61-year-old white male, currently on a BiPAP at a pressure of 16/6 cm of water and FiO2 40%, synchronous, no signs of any acute respiratory distress while in the BiPAP. HEAD: Normocephalic/atraumatic. EYES: Normal reaction of pupils, equal size. Conjunctiva pink, sclera white. NOSE: Clear with pink turbinates. THROAT: No erythema or exudates. NECK: No masses, no JVD, no thyroid enlargement, no adenopathy. CHEST: No chest wall deformity. Symmetrical expansion. LUNGS: Equal air entry with diffuse rhonchi CVS: Regular rate and rhythm, normal S1 and S2, no gallops, no murmurs, no rubs ABDOMEN: Soft, nontender. No hepatosplenomegaly, normal bowel sounds, no guarding or rigidity. EXTREMITIES: No clubbing, no edema, no cyanosis, 2+ pulses and upper and lower extremities. Right lower extremity is covered with a surgical dressing, clean dry and intact. MUSCULOSKELETAL: Muscle strength and tone normal. SPINE: No scoliosis or deformity SKIN: No rashes CENTRAL NERVOUS SYSTEM: Alert and oriented -3. No focal deficits, tone is normal in all 4 extremities. PSYCHIATRIC: Alert and oriented -3. Appropriate affect. Intact judgment and insight. Results - Laboratory Findings CBC and BMP: 11/30/21 21:19 11/30/21 21:19 ABG ABG pH 7.36 (7.35-7.45) 11/30/21 23:40 ABG pCO2 56 mmHg (35-45) H 11/30/21 23:40 ABG pO2 58 mmHg (83-108) L* 11/30/21 23:40 ABG O2 Saturation 88.9 % (94-97) L 11/30/21 23:40 PT/INR, D-dimer PT 10.2 sec (9.0-12.0) 11/30/21 21:19 INR 0.9 (<1.2) 11/30/21 21:19 D-Dimer 5.84 mg/L FEU (<0.60) H 11/30/21 21:19 Abnormal lab findings: Abnormal Labs 11/30/21 11/30/21 11/30/21 21:19 21:19 21:19 WBC 13.3 H RBC 3.10 L Hgb 8.3 L Hct 28.4 L MCHC 29.2 L Neutrophils # 11.2 H Lymphocytes # 0.6 L ESR 129 H D-Dimer 5.84 H ABG pCO2 ABG pO2 ABG HCO3 ABG Total CO2 ABG O2 Saturation BUN 33 H Creatinine 1.75 H Glucose 180 H Calcium 8.1 L Magnesium 2.4 H C-Reactive Protein 21.2 H Total Protein 6.0 L Albumin 2.7 L 11/30/21 23:40 WBC RBC Hgb Hct MCHC Neutrophils # Lymphocytes # ESR D-Dimer ABG pCO2 56 H ABG pO2 58 L* ABG HCO3 31 H ABG Total CO2 33 H ABG O2 Saturation 88.9 L BUN Creatinine Glucose Calcium Magnesium C-Reactive Protein Total Protein Albumin Assessment and Plan Plan: 1 Acute hypoxemic respiratory failure secondary to suspected fluid volume overload and atelectasis. In addition, there could be a component of pneumonia/aspiration. The patient's chest x-ray essentially unchanged. The patient was discharged to the shelter on 5 L of O2 nasal cannula and there has been some interval worsening in her oxygenation since his discharge. For now the patient is on a BiPAP. Antibiotic coverage will be kept unchanged and the patient is being subjected to diuresis. His most recent echocardiogram showed a preserved LV function 2 Nonhealing ulcer of the right heel with debridement on 11/15/2021. Cultures positive for MRSA and Acinetobacter baumanii currently on Unasyn and daptomycin 3 Acute renal failure , improving, creatinine stable at 1.7 4 Diabetes mellitus type 2, currently on Levemir insulin 5 Diabetic neuropathy 6 Peripheral vascular disease with previous left below the knee amputation 7 Chronic and ongoing tobacco dependence 8 Hypertension 9 History of seizures 10 COPD 11 anemia of chronic disease, currently inactive and stable, hemoglobin is stable for now Plan Continue BiPAP for now the same pressure 15/6 cm of water with an FiO2 of 40% Chest x-ray was reviewed and is to be repeated for tomorrow Continue IV Lasix Continue bronchodilators Monitor renal function Keep IV Unasyn and daptomycin We'll follow
[2021-12-01 12:02] LABS: Glucose,Whole Blood 133 mg/dL (75-99)
[2021-12-01] MEDS ORDERED: HYDROmorphone 0.5 MG/0.5 ML SYRINGE IVP STA (15:28)
[2021-12-01] MEDS: carvediloL 12.5 MG TAB PO SCH (15:56)
[2021-12-01 16:21] LABS: Glucose,Whole Blood 182 mg/dL (75-99)
--- NOTE | 2021-12-01 16:35 | P.HPIM ---
History of Present Illness H&P Date: 12/01/21 Chief Complaint: Shortness of breath This is a 61-year-old patient, now following with Dr. Smalls and [facility] [place] [facility]. Patient was previously living in [place] then it moved to [place] for to 3 months. When patient came back and got admitted here because the daughter lives in town. Chronic stable medical conditions include diabetes, hypertension, left below- knee amputation. Patient was recently admitted to the hospital on 11/09/2021 with a right foot nonhealing ulcer. Had been a smoker up to recently. Wound on right heel, wound cultures were positive for Acinetobacter and MRSA. MRI was negative for osteomyelitis. Patient was discharged and IV Unasyn and daptomycin. Patient was discharged on ER and BiPAP. He had desaturated there and he was transferred as patient became short of breath. And was readmitted. Plan was patient received few weeks of antibiotics. Patient admitted with shortness of breath. Some cough. No sputum. No fever no chills. Some wheezing. Did feel a bit better with bronchodilators. Steroids. Review of systems: GEN.: Tired EYES: None HEENT: None NECK: None RESPIRATORY: As above] CARDIOVASCULAR: No chest pain GASTROINTESTINAL: None GENITOURINARY: None MUSCULOSKELETAL: Joint pains and right heel wound pain LYMPHATICS: None HEMATOLOGICAL: None PSYCHIATRY: Anxious NEUROLOGICAL: None Past medical history to include: Stroke, diabetes, hypertension, left below-knee amputation, right heel wound Social history: [facility] [place], smoked 2 packs a day for 45 years up to 3 weeks ago. No alcohol. . 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 EYES: Pupils equal. Conjunctiva normal. HEENT: External appearance of nose and ears normal, oral cavity grossly normal. NECK: JVD not raised; masses not palpable. HEART: First and second heart sounds are normal; no edema. LUNGS: Respiratory rate increased; not able to speak in full sentences, accessory muscles are working, diminished breath sounds prolonged expiration and wheezing. ABDOMEN: Soft, nontender, liver spleen not palpable, no masses palpable. PSYCH: Alert and oriented x3; mood and affect anxiousl. MUSCULOSKELETAL:No Clubbing/cyanosis;muscles-grossly intact. Right heel wound NEUROLOGICAL: Cranial nerves grossly intact; no facial asymmetry, power and sensation grossly intact. LYMPHATICS: No lymph nodes palpable in the axilla and neck INVESTIGATIONS, reviewed in the clinical context: White count 13.3 hemoglobin 8.3 platelets 336 potassium 4.6 BUN 33 creatinine 1.75 CRP 21.2 Troponin I 0.020, 0.017 COVID 19/influenza type A/influenza type B: Not detected EKG tracing personally reviewed by me-normal sinus rhythm. Chest x-ray film personally reviewed by me-underexposed. Patchy infiltrates Previous labs: Creatinine 1.6 on November 09 2-D echocardiogram: EF 60 have a 65% Assessment and plan: -Acute severe COPD exacerbation in a previous smoker DuoNeb 4 times a day. Pulmicort nebulizer twice a day. -Possible pneumonia suspected gram-negative organism/aspiration Continue IV Unasyn. Check pro-calcitonin -Right heel diabetic wound negative for osteomyelitis per MRI. Culture positive for Acinetobacter, MRSA Continue Unasyn, IV daptomycin. Consult ID -Acute on chronic hypoxic respiratory failure from COPD/pneumonia possible fluid overload BiPAP. Patient was discharged on 5 L oxygen. -Normocytic anemia Check iron studies. B12. -Diabetes mellitus type 2, chronically on insulin Levemir. Humalog. Slightly scale. -Essential hypertension Coreg 12.5 mg twice a day hydralazine 100 mg 3 times a day -Diabetic peripheral neuropathy Neurontin 100 mg twice a day -Left below-knee amputation -Full code DuoNeb. IV Solu-Medrol. Nebulized bronchodilators. IV Unasyn. IV daptomycin. Accu-Cheks. BiPAP. Oxygen supplementation. Consult ID and pulmonary. Care was discussed with the patient. Given the complexity and severity of patient's condition expect the patient to be in the hospital at least for 2 overnights 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), MRSA Date of last positivie culture/infection: 11/11/21 MDRO Source:: Heel-MRSA Additional Past Surgical History / Comment(s): BKA right leg Past Anesthesia/Blood Transfusion Reactions: No Reported Reaction Past Psychological History: No Psychological Hx Reported Smoking Status: Current every day smoker Past Alcohol Use History: None Reported Past Drug Use History: None Reported Medications and Allergies Home Medications Medication Instructions Recorded Confirmed Type Carvedilol [Coreg] 12.5 mg PO BID-W/MEALS 11/09/21 11/30/21 History Ketoconazole 2% Shampoo [Nizoral] 1 applic TOPICAL DIRECTED 11/09/21 11/30/21 History Ticagrelor [Brilinta] 90 mg PO BID 11/09/21 11/30/21 History levETIRAcetam [Keppra] 1,000 mg PO BID 11/09/21 11/30/21 History Ampicillin-Sulbactam [Unasyn] 3 gm IVPB Q6HR 27 Days #108 each 11/30/21 11/30/21 Rx Bumetanide [Bumex] 1 mg PO BID 30 Days #60 tablet 11/30/21 11/30/21 Rx DAPTOmycin [Daptomycin] 500 mg IV DAILY 27 Days #27 each 11/30/21 11/30/21 Rx Gabapentin [Neurontin] 100 mg PO BID 30 Days #60 cap 11/30/21 11/30/21 Rx Insulin Detemir (Levemir) [Levemir] 20 unit SQ DAILY@0700 30 Days #6 ml 11/30/21 11/30/21 Rx Insulin Detemir (Levemir) [Levemir] 20 unit SQ HS 30 Days #6 ml 11/30/21 11/30/21 Rx Insulin Lispro [humaLOG Kwikpen] 5 units SQ AC-TID 30 Days #6 ml 11/30/21 11/30/21 Rx Tamsulosin [Flomax] 0.4 mg PO PC-BRKFST #30 11/30/21 11/30/21 Rx hydrALAZINE HCL [Apresoline] 100 mg PO TID 30 Days #90 tab 11/30/21 11/30/21 Rx Allergies Allergy/AdvReac Type Severity Reaction Status Date / Time No Known Allergies Allergy Verified 11/30/21 23:38 Physical Exam Vitals: Vital Signs Temp Pulse Pulse Resp BP BP Pulse Ox 12/01/21 04:00 98.4 F 14 127/64 93 L 12/01/21 02:00 98.3 F 85 16 129/62 99 12/01/21 01:12 84 20 122/60 98 12/01/21 00:00 90 26 H 139/93 98 11/30/21 23:00 97 28 H 164/71 98 11/30/21 21:54 94 26 H 156/64 95 11/30/21 20:45 100.4 F H 96 26 H 194/95 94 L Intake and Output 11/30/21 12/01/21 12/01/21 22:59 06:59 14:59 Intake Total 10 Output Total 800 Balance -790 Intake: IV 10 Invasive Line 1 10 Output: Urine 800 Straight 800 Other: Weight 96.162 kg 102 kg 102 kg Results CBC & Chem 7: 11/30/21 21:19 11/30/21 21:19 Labs: Abnormal Lab Results - Last 24 Hours (Table) 11/30/21 11/30/21 11/30/21 Range/Units 21:19 21:19 21:19 WBC 13.3 H (3.8-10.6) k/uL RBC 3.10 L (4.30-5.90) m/uL Hgb 8.3 L (13.0-17.5) gm/dL Hct 28.4 L (39.0-53.0) % MCHC 29.2 L (31.0-37.0) g/dL Neutrophils # 11.2 H (1.3-7.7) k/uL Lymphocytes # 0.6 L (1.0-4.8) k/uL ESR 129 H (0-15) mm/hr D-Dimer 5.84 H (<0.60) mg/L FEU ABG pCO2 (35-45) mmHg ABG pO2 (83-108) mmHg ABG HCO3 (21-25) mmol/L ABG Total CO2 (19-24) mmol/L ABG O2 Saturation (94-97) % BUN 33 H (9-20) mg/dL Creatinine 1.75 H (0.66-1.25) mg/dL Glucose 180 H (74-99) mg/dL Calcium 8.1 L (8.4-10.2) mg/dL Magnesium 2.4 H (1.6-2.3) mg/dL C-Reactive Protein 21.2 H (<1.0) mg/dL Total Protein 6.0 L (6.3-8.2) g/dL Albumin 2.7 L (3.5-5.0) g/dL 11/30/21 Range/Units 23:40 WBC (3.8-10.6) k/uL RBC (4.30-5.90) m/uL Hgb (13.0-17.5) gm/dL Hct (39.0-53.0) % MCHC (31.0-37.0) g/dL Neutrophils # (1.3-7.7) k/uL Lymphocytes # (1.0-4.8) k/uL ESR (0-15) mm/hr D-Dimer (<0.60) mg/L FEU ABG pCO2 56 H (35-45) mmHg ABG pO2 58 L* (83-108) mmHg ABG HCO3 31 H (21-25) mmol/L ABG Total CO2 33 H (19-24) mmol/L ABG O2 Saturation 88.9 L (94-97) % BUN (9-20) mg/dL Creatinine (0.66-1.25) mg/dL Glucose (74-99) mg/dL Calcium (8.4-10.2) mg/dL Magnesium (1.6-2.3) mg/dL C-Reactive Protein (<1.0) mg/dL Total Protein (6.3-8.2) g/dL Albumin (3.5-5.0) g/dL Thrombosis Risk Factor Assmnt - Choose All That Apply Any of the Below Risk Factors Present?: Yes Each Factor Represents 1 point: Obesity (BMI >25) Other Risk Factors: Yes Each Risk Factor Represents 2 Points: Age 61-74 years Other congenital or acquired thrombophilia - If yes, enter type in comment: No Thrombosis Risk Factor Assessment Total Risk Factor Score: 3 Thrombosis Risk Factor Assessment Level: Moderate Risk
[2021-12-01] MEDS: methylPREDNISolone SOD SUCCI 40 MG/ML 1 ML VIAL IV SCH ×2 (18:47→23:07)
[2021-12-01] MEDS: IPRATROPIUM-ALBUTEROL 3 ML NEB INHALATION SCH (19:48)
[2021-12-01] MEDS: BUDESONIDE 1 MG/2 ML NEBU INHALATION SCH (19:50)
[2021-12-01 20:02] LABS: Glucose,Whole Blood 217 mg/dL (75-99)
[2021-12-01] MEDS ORDERED: INSULIN DETEMIR (LEVEMIR) 100 UNIT/ML SYR SQ SCH ×2 (21:00)
[2021-12-01] MEDS: TICAGRELOR 90 MG TAB PO SCH (21:05)
--- NOTE | 2021-12-01 23:44 | P.CONS ---
History of Present Illness - Reason for Consult Consult date: 12/01/21 Diabetic foot infection Requesting physician: Lloyd Merrill - Chief Complaint Increasing shortness of breath x one day - History of Present Illness Patient is a 61-year-old male who was recently admitted at this facility and the patient was treated for multiple comorbidities the patient did have a right heel diabetic foot infection which was surgically debrided by vascular surgeon with evidence of extension of the wound down to the bone patient cultures were positive for MRSA anaerobes and Acinetobacter, patient did get a PICC line with a blood culture negative and was advised a 6-week course of daptomycin and Unasyn because of his kidney function and high risk of nephrotoxicity the patient was discharged to group home yesterday and the patient was brought back to the ER within 3 hours of discharge from the hospital concerning for low O2 sats of 80%, the patient denies having any chest pain he did have mild cough but not bringing up any sputum denies have any nausea no vomiting no abdominal pain no diarrhea has been complaining of some pain to the right heel wound area but no worsening patient was evaluated by the ER physician on arrival to the ER patient did have a fever of 100.4 degree for right he was hypoxic with need for supplemental oxygen patient did have white count of 13.3 sed rate of 129 creatinine 1.75 CRP of 21.2 blood cultures obtained which are currently pending chest x-ray patchy pulmonary edema that could be combination of heart failure with ARDS patient did have x-ray of the foot calcaneal spurring no evidence of osteomyelitis the patient was continued on Unasyn and daptomycin infectious disease was consulted for further management of antibiotic therapy Review of Systems Positive point has been mentioned in the HPI rest of the systems are negative 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), MRSA Year Discovered:: 11/11/21 MDRO Source:: Heel-MRSA Additional Past Surgical History / Comment(s): BKA right leg Past Anesthesia/Blood Transfusion Reactions: No Reported Reaction Past Psychological History: No Psychological Hx Reported Smoking Status: Current every day smoker Past Alcohol Use History: None Reported Past Drug Use History: None Reported Medications and Allergies Home Medications Medication Instructions Recorded Confirmed Type Carvedilol [Coreg] 12.5 mg PO BID-W/MEALS 11/09/21 11/30/21 History Ketoconazole 2% Shampoo [Nizoral] 1 applic TOPICAL DIRECTED 11/09/21 11/30/21 History Ticagrelor [Brilinta] 90 mg PO BID 11/09/21 11/30/21 History levETIRAcetam [Keppra] 1,000 mg PO BID 11/09/21 11/30/21 History Ampicillin-Sulbactam [Unasyn] 3 gm IVPB Q6HR 27 Days #108 each 11/30/21 11/30/21 Rx Bumetanide [Bumex] 1 mg PO BID 30 Days #60 tablet 11/30/21 11/30/21 Rx DAPTOmycin [Daptomycin] 500 mg IV DAILY 27 Days #27 each 11/30/21 11/30/21 Rx Gabapentin [Neurontin] 100 mg PO BID 30 Days #60 cap 11/30/21 11/30/21 Rx Insulin Detemir (Levemir) [Levemir] 20 unit SQ DAILY@0700 30 Days #6 ml 11/30/21 11/30/21 Rx Insulin Detemir (Levemir) [Levemir] 20 unit SQ HS 30 Days #6 ml 11/30/21 11/30/21 Rx Insulin Lispro [humaLOG Kwikpen] 5 units SQ AC-TID 30 Days #6 ml 11/30/21 11/30/21 Rx Tamsulosin [Flomax] 0.4 mg PO PC-BRKFST #30 11/30/21 11/30/21 Rx hydrALAZINE HCL [Apresoline] 100 mg PO TID 30 Days #90 tab 11/30/21 11/30/21 Rx Allergies Allergy/AdvReac Type Severity Reaction Status Date / Time No Known Allergies Allergy Verified 11/30/21 23:38 Physical Exam Vitals: Vital Signs Temp Pulse Pulse Resp BP BP Pulse Ox 12/01/21 11:30 98.9 F 100 22 146/70 90 L 12/01/21 08:20 98.5 F 86 16 173/77 94 L 12/01/21 04:00 98.4 F 14 127/64 93 L 12/01/21 02:00 98.3 F 85 16 129/62 99 12/01/21 01:12 84 20 122/60 98 12/01/21 00:00 90 26 H 139/93 98 11/30/21 23:00 97 28 H 164/71 98 11/30/21 21:54 94 26 H 156/64 95 11/30/21 20:45 100.4 F H 96 26 H 194/95 94 L Intake and Output 11/30/21 12/01/21 12/01/21 22:59 06:59 14:59 Intake Total 10 35 Output Total 800 950 Balance -790 -915 Intake: IV 10 10 Invasive Line 1 10 10 Oral 25 Output: Urine 800 950 Straight 800 Other: Weight 96.162 kg 102 kg 102 kg GENERAL DESCRIPTION: Middle-aged male lying in bed, no distress. No tachypnea or accessory muscle of respiration use. HEENT: Shows Pallor , no scleral icterus. Oral mucous membrane is dry. No pharyngeal erythema or thrush NECK: Trachea central, no thyromegaly. LUNGS: Unlabored breathing. Decreased present at the base. No wheeze or crackle. HEART: S1, S2, regular rate and rhythm. No loud murmur ABDOMEN: Soft, no tenderness , guarding or rigidity, no organomegaly EXTREMITIES: Right lateral heel wound seems superficial with slough tissue no surrounding redness or any drainage. SKIN: No rash, no masses palpable. NEUROLOGICAL: The patient is awake, alert, oriented x3, mood and affect normal. Results CBC & Chem 7: 11/30/21 21:19 11/30/21 21:19 Labs: Abnormal Lab Results - Last 24 Hours (Table) 11/30/21 11/30/21 11/30/21 Range/Units 21:19 21:19 21:19 WBC 13.3 H (3.8-10.6) k/uL RBC 3.10 L (4.30-5.90) m/uL Hgb 8.3 L (13.0-17.5) gm/dL Hct 28.4 L (39.0-53.0) % MCHC 29.2 L (31.0-37.0) g/dL Neutrophils # 11.2 H (1.3-7.7) k/uL Lymphocytes # 0.6 L (1.0-4.8) k/uL ESR 129 H (0-15) mm/hr D-Dimer 5.84 H (<0.60) mg/L FEU ABG pCO2 (35-45) mmHg ABG pO2 (83-108) mmHg ABG HCO3 (21-25) mmol/L ABG Total CO2 (19-24) mmol/L ABG O2 Saturation (94-97) % BUN 33 H (9-20) mg/dL Creatinine 1.75 H (0.66-1.25) mg/dL Glucose 180 H (74-99) mg/dL POC Glucose (mg/dL) (75-99) mg/dL Calcium 8.1 L (8.4-10.2) mg/dL Magnesium 2.4 H (1.6-2.3) mg/dL C-Reactive Protein 21.2 H (<1.0) mg/dL Total Protein 6.0 L (6.3-8.2) g/dL Albumin 2.7 L (3.5-5.0) g/dL 11/30/21 12/01/21 Range/Units 23:40 12:00 WBC (3.8-10.6) k/uL RBC (4.30-5.90) m/uL Hgb (13.0-17.5) gm/dL Hct (39.0-53.0) % MCHC (31.0-37.0) g/dL Neutrophils # (1.3-7.7) k/uL Lymphocytes # (1.0-4.8) k/uL ESR (0-15) mm/hr D-Dimer (<0.60) mg/L FEU ABG pCO2 56 H (35-45) mmHg ABG pO2 58 L* (83-108) mmHg ABG HCO3 31 H (21-25) mmol/L ABG Total CO2 33 H (19-24) mmol/L ABG O2 Saturation 88.9 L (94-97) % BUN (9-20) mg/dL Creatinine (0.66-1.25) mg/dL Glucose (74-99) mg/dL POC Glucose (mg/dL) 133 H (75-99) mg/dL Calcium (8.4-10.2) mg/dL Magnesium (1.6-2.3) mg/dL C-Reactive Protein (<1.0) mg/dL Total Protein (6.3-8.2) g/dL Albumin (3.5-5.0) g/dL Assessment and Plan (1) Diabetic infection of right foot Current Visit: Yes Status: Acute Code(s): E11.628 - TYPE 2 DIABETES MELLITUS WITH OTHER SKIN COMPLICATIONS; L08.9 - LOCAL INFECTION OF THE SKIN AND S UBCUTANEOUS TISSUE, UNSP SNOMED Code(s): 53822839 Plan: 1patient with her right heel diabetic foot infection in this patient who is status post surgical debridement and culture positive for MRSA anaerobes and Acinetobacter the patient seem to have clinically responded as the patient right heel wound has decrease in size and does not look that deep with no surrounding redness and x-rays were negative for any osteomyelitis. 2with a new fever slightly concerning clinical not behaving as pneumonia blood cultures have been obtained those will be followed and we will check a procalcitonin 3continue with Unasyn however adjust the dose of daptomycin to 6 mg/kg. 4local wound care to the right heel wound with the Medihoney followed by moist dressing keep the area of the pressure. We will follow on clinical condition and cultures to further adjust medication if needed Thank you for this consultation will follow this patient along with you Time with Patient: Greater than 30
[2021-12-01] MEDS: LORazepam 0.5 MG TAB PO PRN (23:56)
[2021-12-02] MEDS: IPRATROPIUM-ALBUTEROL 3 ML NEB INHALATION SCH ×8 (00:49→23:45)
[2021-12-02] MEDS: FUROSEMIDE 10 MG/ML 4 ML VIAL IV SCH ×2 (00:50→12:08)
[2021-12-02 01:53] LABS: Glucose,Whole Blood 212 mg/dL (75-99)
[2021-12-02] MEDS: AMPICILLIN-SULBACTAM 3 GM in SODIUM CHLORIDE 0.9% 100 ML IVPB SCH ×3 (05:25→17:39)
[2021-12-02 05:45] LABS: Glucose,Whole Blood 360 mg/dL (75-99)
[2021-12-02] MEDS: carvediloL 12.5 MG TAB PO SCH ×2 (06:26→17:10)
[2021-12-02] MEDS: INSULIN ASPART (NovoLOG) 100 UNIT/ML VIAL SQ SCH ×6 (06:26→21:13)
[2021-12-02] MEDS: BUDESONIDE 1 MG/2 ML NEBU INHALATION SCH ×2 (08:08→19:16)
[2021-12-02] MEDS: TICAGRELOR 90 MG TAB PO SCH ×2 (08:21→21:11)
[2021-12-02] MEDS: levETIRAcetam 500 MG TAB PO SCH ×2 (08:21→21:11)
[2021-12-02] MEDS: GABAPENTIN 100 MG CAP PO SCH ×2 (08:21→21:11)
[2021-12-02] MEDS: hydrALAZINE HCL 50 MG TAB PO SCH ×3 (08:21→21:11)
[2021-12-02] MEDS: methylPREDNISolone SOD SUCCI 40 MG/ML 1 ML VIAL IV SCH ×2 (08:21→21:12)
[2021-12-02] MEDS: ENOXAPARIN 40 MG/0.4 ML SYRINGE SQ SCH ×2 (08:22→08:29)
--- NOTE | 2021-12-02 11:19 | P.PN ---
Progress Note - Text Progress Note Date: 12/02/21 Chief Complaint: Shortness of breath This is a 61-year-old patient, now following with Dr. Smalls and [facility] of [place] on. Patient was previously living in [place] then it moved to [place] for to 3 months. When patient came back and got admitted here because the daughter lives in town. Chronic stable medical conditions include diabetes, hypertension, left below- knee amputation. Patient was recently admitted to the hospital on 11/09/2021 with a right foot nonhealing ulcer. Had been a smoker up to recently. Wound on right heel, wound cultures were positive for Acinetobacter and MRSA. MRI was negative for osteomyelitis. Patient was discharged and IV Unasyn and daptomycin. Patient was discharged on ER and BiPAP. He had desaturated there and he was transferred as patient became short of breath. And was readmitted. Plan was patient received few weeks of antibiotics. Patient admitted with shortness of breath. Some cough. No sputum. No fever no chills. Some wheezing. Did feel a bit better with bronchodilators. Steroids. Admitted with acute COPD exacerbation, pneumonia, right heel wound. IV Unasyn daptomycin continued. Bronchodilators. Steroids. December 02: Breathing a bit better. Oral intake good. Some pain in the right heel. Being followed by ID and primary. Had a BM. Active Medications Albuterol/Ipratropium (Ipratropium-Albuterol 3 Ml Neb) 3 ml INHALATION RT-Q4H [facility] Last Admin: 12/02/21 08:35 Dose: 3 ml Documented by: Budesonide (Budesonide 1 Mg/2 Ml Nebu) 1 mg INHALATION RT-BID [facility] Last Admin: 12/02/21 08:08 Dose: Not Given Documented by: Carvedilol (Carvedilol 12.5 Mg Tab) 12.5 mg PO BID-W/MEALS [facility] Last Admin: 12/02/21 06:26 Dose: 12.5 mg Documented by: Enoxaparin Sodium (Enoxaparin 40 Mg/0.4 Ml Syringe) 40 mg SQ DAILY [facility] Last Admin: 12/02/21 08:29 Dose: Not Given Documented by: Furosemide (Furosemide 10 Mg/Ml 4 Ml Vial) 40 mg IV Q12H [facility] Last Admin: 12/02/21 00:50 Dose: 40 mg Documented by: Gabapentin (Gabapentin 100 Mg Cap) 100 mg PO BID [facility] Last Admin: 12/02/21 08:21 Dose: 100 mg Documented by: Hydralazine HCl (Hydralazine Hcl 50 Mg Tab) 100 mg PO TID [facility] Last Admin: 12/02/21 08:21 Dose: 100 mg Documented by: Ampicillin Sodium/Sulbactam (Sodium 3 gm/ Sodium Chloride) 100 mls @ 200 mls/hr IVPB Q6H [facility]; Protocol Last Admin: 12/02/21 05:25 Dose: 200 mls/hr Documented by: Daptomycin 600 mg/ Sodium (Chloride) 50 mls @ 100 mls/hr IVPB Q24H [facility]; Protocol Last Admin: 12/02/21 01:21 Dose: 100 mls/hr Documented by: Insulin Aspart (Insulin Aspart (Novolog) 100 Unit/Ml Vial) 0 unit SQ ACHS [facility]; Protocol Last Admin: 12/02/21 06:26 Dose: 6 unit Documented by: Insulin Detemir (Insulin Detemir (Levemir) 100 Unit/Ml Syr) 30 unit SQ HS [facility] Last Admin: 12/01/21 21:05 Dose: 30 unit Documented by: Ketoconazole (Ketoconazole 2% Shampoo 1 Applic/Ml) 1 applic TOPICAL MoTh [facility] Levetiracetam (Levetiracetam 500 Mg Tab) 1,000 mg PO BID [facility] Last Admin: 12/02/21 08:21 Dose: 1,000 mg Documented by: Lorazepam (Lorazepam 0.5 Mg Tab) 0.5 mg PO Q8HR PRN PRN Reason: Agitation or Acute Anxiety Last Admin: 12/01/21 23:56 Dose: 0.5 mg Documented by: Methylprednisolone Sodium Succinate (Methylprednisolone Sod Succi 40 Mg/Ml 1 Ml Vial) 40 mg IV Q8HR [facility] Last Admin: 12/02/21 08:21 Dose: 40 mg Documented by: Oxycodone HCl (Oxycodone Hcl 5 Mg Tab) 15 mg PO TID [facility]; Protocol Last Admin: 12/02/21 08:21 Dose: 15 mg Documented by: Ticagrelor (Ticagrelor 90 Mg Tab) 90 mg PO BID [facility] Last Admin: 12/02/21 08:21 Dose: 90 mg Documented by: Past medical history to include: Stroke, diabetes, hypertension, left below-knee amputation, right heel wound Social history: [facility], smoked 2 packs a day for 45 years up to 3 weeks ago. No alcohol. . 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 Conjunctiva normal. HEENT: External appearance of nose and ears normal, oral cavity grossly normal. NECK: JVD not raised; masses not palpable. HEART: First and second heart sounds are normal; no edema. LUNGS: Respiratory rate increased; not able to speak in full sentences, accessory muscles are working, diminished breath sounds prolonged expiration and wheezing. ABDOMEN: Soft, nontender, liver spleen not palpable, no masses palpable. PSYCH: Alert and oriented x3; mood and affect anxiousl. MUSCULOSKELETAL:No Clubbing/cyanosis;muscles-grossly intact. Right heel wound NEUROLOGICAL: Cranial nerves grossly intact; no facial asymmetry, power and sensation grossly intact. INVESTIGATIONS, reviewed in the clinical context: White count 13.3 hemoglobin 8.3 platelets 336 potassium 4.6 BUN 33 creatinine 1.75 CRP 21.2 Troponin I 0.020, 0.017 COVID 19/influenza type A/influenza type B: Not detected EKG tracing personally reviewed by me-normal sinus rhythm. Chest x-ray film personally reviewed by me-underexposed. Patchy infiltrates Previous labs: Creatinine 1.6 on November 09 2-D echocardiogram: EF 60 have a 65% Assessment and plan: -Acute severe COPD exacerbation in a previous smoker: Slow to respond DuoNeb 4 times a day. Pulmicort nebulizer twice a day. IV Solu-Medrol: -Possible pneumonia suspected gram-negative organism/aspiration Continue IV Unasyn. Check pro-calcitonin -Right heel diabetic wound negative for osteomyelitis per MRI. Recent debridement. Culture positive for Acinetobacter, MRSA Continue Unasyn, IV daptomycin. Follow with ID -Acute on chronic hypoxic respiratory failure from COPD/pneumonia possible fluid overload BiPAP. Patient was discharged on 5 L oxygen. -Normocytic anemia Check iron studies. B12. -Diabetes mellitus type 2, chronically on insulin: Uncontrolled with hyperglycemia secondary to steroids Increase Levemir 38 units. 6 units with meals Humalog. Slightly scale. -Essential hypertension Coreg 12.5 mg twice a day hydralazine 100 mg 3 times a day -Diabetic peripheral neuropathy Neurontin 100 mg twice a day -Left below-knee amputation -Full code DuoNeb. IV Solu-Medrol every 12. Nebulized bronchodilators. IV Unasyn. IV daptomycin. Oxygen supplementation. Crease Levemir to 38 units at night. 6 units of Humalog with meals. Discussed with patient.
[2021-12-02 11:51] LABS: Glucose,Whole Blood 401 mg/dL (75-99)
[2021-12-02] MEDS: LORazepam 0.5 MG TAB PO PRN (12:02)
--- NOTE | 2021-12-02 12:06 | P.PN ---
Subjective Progress Note Date: 12/02/21 On today's evaluation of 12/02/2021, the patient has no specific complaints. The patient was taken off the BiPAP and the patient was placed on O2 at 5 L nasal cannula. Note that overnight, the patient was in a BiPAP at a pressure of 16/6 with an FiO2 40%. Doing well perspecific complaints. Breathing is nonlabored. No chest pain. No cough sputum production chest tightness or wheezing. The patient remains on Lasix 40 mg every 12 hours. The patient is also on IV Solu Medrol 40 every 12 hours. The patient is on Unasyn and daptomycin. The blood sugars have been elevated due to steroid use. COVID 19 testing is been negative. Influenza screen is been negative. Troponins have been negative. Objective - Vital Signs Vital signs: Vital Signs Temp 98.5 F 12/02/21 08:10 Pulse 84 12/02/21 12:03 Resp 16 12/02/21 08:10 BP 137/64 12/02/21 08:10 Pulse Ox 92 L 12/02/21 08:10 Intake & Output 12/01/21 12/02/21 12/02/21 18:59 06:59 18:59 Intake Total 153 10 Output Total 1300 850 Balance -1147 -840 Weight 102 kg 99 kg Intake: IV 10 10 Invasive Line 1 10 10 Oral 143 Output: Urine 1300 850 Other: Voiding Method Urinal Urinal # Bowel Movements 1 - Exam GENERAL EXAM: Alert, very pleasant, 61-year-old white male, currently on 5 L O2 nasal cannula HEAD: Normocephalic/atraumatic. EYES: Normal reaction of pupils, equal size. Conjunctiva pink, sclera white. NOSE: Clear with pink turbinates. THROAT: No erythema or exudates. NECK: No masses, no JVD, no thyroid enlargement, no adenopathy. CHEST: No chest wall deformity. Symmetrical expansion. LUNGS: Equal air entry with diffuse rhonchi CVS: Regular rate and rhythm, normal S1 and S2, no gallops, no murmurs, no rubs ABDOMEN: Soft, nontender. No hepatosplenomegaly, normal bowel sounds, no guarding or rigidity. EXTREMITIES: No clubbing, no edema, no cyanosis, 2+ pulses and upper and lower extremities. Right lower extremity is covered with a surgical dressing, clean dry and intact. MUSCULOSKELETAL: Muscle strength and tone normal. SPINE: No scoliosis or deformity SKIN: No rashes CENTRAL NERVOUS SYSTEM: Alert and oriented -3. No focal deficits, tone is normal in all 4 extremities. PSYCHIATRIC: Alert and oriented -3. Appropriate affect. Intact judgment and insight. - Labs CBC & Chem 7: 11/30/21 21:19 11/30/21 21:19 Labs: Abnormal Lab Results - Last 24 Hours (Table) 12/01/21 12/01/21 12/02/21 Range/Units 16:19 20:00 01:52 POC Glucose (mg/dL) 182 H 217 H 212 H (75-99) mg/dL Iron (65-175) ug/dL Transferrin (204.0-354.0) mg/dL Ferritin (22.0-322.0) ng/mL 12/02/21 12/02/21 12/02/21 Range/Units 05:43 08:14 11:50 POC Glucose (mg/dL) 360 H 401 H (75-99) mg/dL Iron 25 L (65-175) ug/dL Transferrin 102.0 L (204.0-354.0) mg/dL Ferritin 701.0 H (22.0-322.0) ng/mL Microbiology - Last 24 Hours (Table) 11/30/21 23:31 Blood Culture - Preliminary Blood No Growth after 24 hours 11/30/21 23:16 Blood Culture Gram Stain - Preliminary Blood 11/30/21 23:16 Blood Culture - Final Blood Assessment and Plan Plan: 1 Acute hypoxemic respiratory failure secondary to suspected fluid volume overload and atelectasis. In addition, there could be a component of pneumonia/aspiration. The patient's chest x-ray essentially unchanged. The patient was discharged to the [facility] on 5 L of O2 nasal cannula and there has been some interval worsening in her oxygenation since his discharge. The patient was initially placed on a BiPAP and the patient is currently placed on 5 L nasal cannula which is the same amount of fluid that the patient was using prior to him being discharged from the hospital. He is still on diuretics, antibiotics and steroids as mentioned. He does have a component of hyperglycemia related to steroid use. 2 Nonhealing ulcer of the right heel with debridement on 11/15/2021. Cultures positive for MRSA and Acinetobacter baumanii currently on Unasyn and daptomycin 3 Acute renal failure , improving, creatinine stable at 1.7 4 Diabetes mellitus type 2, currently on Levemir insulin 5 Diabetic neuropathy 6 Peripheral vascular disease with previous left below the knee amputation 7 Chronic and ongoing tobacco dependence 8 Hypertension 9 History of seizures 10 COPD 11 anemia of chronic disease, currently inactive and stable, hemoglobin is stable for now Plan Continue BiPAP on and off during the day especially at nighttime, otherwise the patient is on 5 L O2 nasal cannula Chest x-ray was reviewed and is to be repeated for tomorrow Continue IV Lasix Continue bronchodilators Monitor renal function Continue steroids Medical team to control the patient's blood sugar more effectively, currently on Levemir insulin 38 units daily at bedtime along with NovoLog 6 units with meal and a sliding scale coverage. Keep IV Unasyn and daptomycin We'll follow
[2021-12-02 16:22] LABS: Glucose,Whole Blood 376 mg/dL (75-99)
[2021-12-02 20:28] LABS: Glucose,Whole Blood 333 mg/dL (75-99)
[2021-12-02] MEDS ORDERED: INSULIN DETEMIR (LEVEMIR) 100 UNIT/ML SYR SQ SCH (21:00)
--- NOTE | 2021-12-02 23:19 | P.PN ---
Subjective Progress Note Date: 12/02/21 Principal diagnosis: Right heel diabetic foot infection and bacteremia Patient is a 61-year-old male with a recent diagnosis of right heel osteomyelitis on the basis of wound tracking down to the wound at the time of debridement culture were positive for Acinetobacter and MRSA, patient treated with Unasyn and daptomycin presenting back to the hospital with the acute r espiratory failure. On today's evaluation that is 12/02/2021, the patient denies having any fever or chills he is breathing comfortably on nasal cannula oxygen denies having any chest pain or cough no common pain or any worsening pain to the right heel area Objective - Vital Signs Vital signs: Vital Signs Temp 98.5 F 12/02/21 08:10 Pulse 84 12/02/21 12:03 Resp 16 12/02/21 11:50 BP 156/70 12/02/21 11:50 Pulse Ox 93 L 12/02/21 11:50 Intake & Output 12/01/21 12/02/21 12/02/21 18:59 06:59 18:59 Intake Total 153 10 Output Total 1300 850 Balance -1147 -840 Weight 102 kg 99 kg Intake: IV 10 10 Invasive Line 1 10 10 Oral 143 Output: Urine 1300 850 Other: Voiding Method Urinal Urinal # Bowel Movements 1 - Exam GENERAL DESCRIPTION: Middle-age male lying in bed in no distress RESPIRATORY SYSTEM: Unlabored breathing , decreased breath sounds at bases HEART: S1 S2 regular rate and rhythm , ABDOMEN: Soft , no tenderness EXTREMITIES: Right heel wound is currently dressed no drainage on the dressings - Labs CBC & Chem 7: 11/30/21 21:19 11/30/21 21:19 Labs: Abnormal Lab Results - Last 24 Hours (Table) 12/01/21 12/01/21 12/02/21 Range/Units 16:19 20:00 01:52 POC Glucose (mg/dL) 182 H 217 H 212 H (75-99) mg/dL Iron (65-175) ug/dL Transferrin (204.0-354.0) mg/dL Ferritin (22.0-322.0) ng/mL 12/02/21 12/02/21 12/02/21 Range/Units 05:43 08:14 11:50 POC Glucose (mg/dL) 360 H 401 H (75-99) mg/dL Iron 25 L (65-175) ug/dL Transferrin 102.0 L (204.0-354.0) mg/dL Ferritin 701.0 H (22.0-322.0) ng/mL Microbiology - Last 24 Hours (Table) 11/30/21 23:16 Blood Culture Gram Stain - Preliminary Blood Blood Culture - Preliminary Enterococcus faecium 11/30/21 23:31 Blood Culture - Preliminary Blood No Growth after 24 hours 11/30/21 23:16 Blood Culture - Final Blood Assessment and Plan (1) Diabetic infection of right foot Current Visit: Yes Status: Acute Code(s): E11.628 - TYPE 2 DIABETES MELLITUS WITH OTHER SKIN COMPLICATIONS; L08.9 - LOCAL INFECTION OF THE SKIN AND SUBCUTANEOUS TISSUE, UNSP SNOMED Code(s): 38128934 Plan: 1patient with her right heel diabetic foot infection in this patient who is status post surgical debridement and culture positive for MRSA anaerobes and Acinetobacter the patient seem to have clinically responded as the patient right heel wound has decrease in size and does not look that deep with no surrounding redness and x-rays were negative for any osteomyelitis. 2patient with a positive blood culture with enterococcus concern for possible PICC related, blood cultures will be repeated from the PICC line and peripherally patient already on daptomycin 3patient to continue with Unasyn and daptomycin to 6 mg/kg. 4local wound care to the right heel wound with the Medihoney followed by moist dressing keep the area of the pressure. Time with Patient: Less than 30
[2021-12-03] MEDS: AMPICILLIN-SULBACTAM 3 GM in SODIUM CHLORIDE 0.9% 100 ML IVPB SCH ×4 (00:26→21:07)
[2021-12-03] MEDS: FUROSEMIDE 10 MG/ML 4 ML VIAL IV SCH ×2 (00:26→00:29)
[2021-12-03] MEDS: LORazepam 0.5 MG TAB PO PRN ×3 (00:26→21:07)
[2021-12-03] MEDS: IPRATROPIUM-ALBUTEROL 3 ML NEB INHALATION SCH ×5 (03:10→19:43)
[2021-12-03 06:25] LABS: Glucose,Whole Blood 359 mg/dL (75-99)
[2021-12-03] MEDS: carvediloL 12.5 MG TAB PO SCH ×2 (06:58→15:39)
[2021-12-03] MEDS: INSULIN ASPART (NovoLOG) 100 UNIT/ML VIAL SQ SCH ×5 (06:58→17:26)
--- NOTE | 2021-12-03 07:27 | XR ---
EXAMINATION TYPE: XR chest 1V DATE OF EXAM: 12/03/2021 HISTORY: Shortness of breath. COMPARISON: 11/30/2021 TECHNIQUE: Single view of the chest is submitted. FINDINGS: Demonstrated are scattered senescent parenchymal change. Scattered reticulonodular infiltrates persist however there is interval improvement. Small right pleu ral effusion noted. The heart is stable. Hilar and mediastinal structures are within normal limits. Degenerative changes are seen of the dorsal spine. IMPRESSION: 1. Scattered reticulonodular infiltrates persist however there is interval improvement. Small right pleural effusion noted.
[2021-12-03] MEDS: BUDESONIDE 1 MG/2 ML NEBU INHALATION SCH ×2 (07:47→19:43)
[2021-12-03 08:03] LABS: Potassium 5.4 mmol/L (3.5-5.1)
[2021-12-03 08:14] LABS: Basophils % (A) 0 %; Eosinophils % (A) 0 %; HCT 28.9 % (39.0-53.0); HGB 8.4 gm/dL (13.0-17.5); Hypochromasia Marked; Lymphocytes # (A) 0.6 k/uL (1.0-4.8); Lymphocytes % (A) 4 %; MCH 27.6 pg (25.0-35.0); MCHC 28.9 g/dL (31.0-37.0); MCV 95.4 fL (80.0-100.0); Mean Platelet Volume 7.9; Monocytes # (A) 0.6 k/uL (0-1.0); Monocytes % (A) 5 %; Neutrophils # (A) 12.7 k/uL (1.3-7.7); Neutrophils % (A) 91 %; Platelet Count 349 k/uL (150-450); RBC 3.03 m/uL (4.30-5.90); RDW 14.5 % (11.5-15.5)
[2021-12-03] MEDS ORDERED: FUROSEMIDE 10 MG/ML 4 ML VIAL IV SCH (09:00)
[2021-12-03] MEDS: hydrALAZINE HCL 50 MG TAB PO SCH ×3 (10:21→21:07)
[2021-12-03] MEDS: ENOXAPARIN 40 MG/0.4 ML SYRINGE SQ SCH (10:21)
[2021-12-03] MEDS: methylPREDNISolone SOD SUCCI 40 MG/ML 1 ML VIAL IV SCH (10:21)
[2021-12-03] MEDS: levETIRAcetam 500 MG TAB PO SCH ×2 (10:21→21:07)
[2021-12-03] MEDS: TICAGRELOR 90 MG TAB PO SCH ×2 (10:23→21:07)
[2021-12-03] MEDS: GABAPENTIN 100 MG CAP PO SCH ×3 (10:23→21:07)
[2021-12-03 11:40] LABS: Glucose,Whole Blood 331 mg/dL (75-99)
[2021-12-03] MEDS: SODIUM ZIRCONIUM CYCLOSILICATE 10 GM PACKET PO SCH ×2 (11:51→15:45)
[2021-12-03] MEDS: predniSONE 20 MG TAB PO SCH (12:02)
[2021-12-03] MEDS: KETOCONAZOLE 2% SHAMPOO 1 APPLIC/ML TOPICAL SCH (13:26)
--- NOTE | 2021-12-03 13:27 | P.PN ---
Progress Note - Text Progress Note Date: 12/03/21 Chief Complaint: Shortness of breath This is a 61-year-old patient, now following with Dr. Smalls and cres[facility] of [facility]. Patient was previously living in [place] then it moved to [place] for to 3 months. When patient came back and got admitted here because the daughter lives in town. Chronic stable medical conditions include diabetes, hypertension, left below- knee amputation. Patient was recently admitted to the hospital on 11/09/2021 with a right foot nonhealing ulcer. Had been a smoker up to recently. Wound on right heel, wound cultures were positive for Acinetobacter and MRSA. MRI was negative for osteomyelitis. Patient was discharged and IV Unasyn and daptomycin. Patient was discharged on ER and BiPAP. He had desaturated there and he was transferred as patient became short of breath. And was readmitted. Plan was patient received few weeks of antibiotics. Patient admitted with shortness of breath. Some cough. No sputum. No fever no chills. Some wheezing. Did feel a bit better with bronchodilators. Steroids. Admitted with acute COPD exacerbation, pneumonia, right heel wound. IV Unasyn daptomycin continued. Bronchodilators. Steroids. December 1: Breathing a bit better. Oral intake good. Some pain in the right heel. Being followed by ID and primary. Had a BM. December 2: Breathing better. Had a very lengthy discussion with the patient about his narcotic. And phantom pain. Pros and cause of increasing narcotics was discussed. Will increase Neurontin to 100 mg 3 times a day. Oral intake fair. Potassium increased we'll order Lokelma. And renal diet Active Medications Albuterol/Ipratropium (Ipratropium-Albuterol 3 Ml Neb) 3 ml INHALATION RT-Q4H [facility] Last Admin: 12/03/21 11:42 Dose: 3 ml Documented by: Budesonide (Budesonide 1 Mg/2 Ml Nebu) 1 mg INHALATION RT-BID [facility] Last Admin: 12/03/21 07:47 Dose: 1 mg Documented by: Bumetanide (Bumetanide 1 Mg Tab) 1 mg PO BID@0900,1600 [facility] Carvedilol (Carvedilol 12.5 Mg Tab) 12.5 mg PO BID-W/MEALS [facility] Last Admin: 12/03/21 06:58 Dose: 12.5 mg Documented by: Enoxaparin Sodium (Enoxaparin 40 Mg/0.4 Ml Syringe) 40 mg SQ DAILY [facility] Last Admin: 12/03/21 10:21 Dose: 40 mg Documented by: Gabapentin (Gabapentin 100 Mg Cap) 100 mg PO TID [facility] Hydralazine HCl (Hydralazine Hcl 50 Mg Tab) 100 mg PO TID [facility] Last Admin: 12/03/21 10:21 Dose: 100 mg Documented by: Daptomycin 600 mg/ Sodium (Chloride) 50 mls @ 100 mls/hr IVPB Q24H [facility]; Protocol Last Admin: 12/03/21 01:44 Dose: 100 mls/hr Documented by: Ampicillin Sodium/Sulbactam (Sodium 3 gm/ Sodium Chloride) 100 mls @ 200 mls/hr IVPB Q8H [facility]; Protocol Insulin Aspart (Insulin Aspart (Novolog) 100 Unit/Ml Vial) 0 unit SQ ACHS [facility]; Protocol Last Admin: 12/03/21 11:50 Dose: 6 unit Documented by: Insulin Aspart (Insulin Aspart (Novolog) 100 Unit/Ml Vial) 6 unit SQ AC-TID [facility] Last Admin: 12/03/21 11:50 Dose: 6 unit Documented by: Insulin Detemir (Insulin Detemir (Levemir) 100 Unit/Ml Syr) 38 unit SQ HS [facility] Last Admin: 12/02/21 21:12 Dose: 38 unit Documented by: Ketoconazole (Ketoconazole 2% Shampoo 1 Applic/Ml) 1 applic TOPICAL MoTh [facility] Levetiracetam (Levetiracetam 500 Mg Tab) 1,000 mg PO BID [facility] Last Admin: 12/03/21 10:21 Dose: 1,000 mg Documented by: Lorazepam (Lorazepam 0.5 Mg Tab) 0.5 mg PO Q8HR PRN PRN Reason: Agitation or Acute Anxiety Last Admin: 12/03/21 11:50 Dose: 0.5 mg Documented by: Oxycodone HCl (Oxycodone Hcl 5 Mg Tab) 15 mg PO TID [facility]; Protocol Last Admin: 12/03/21 10:21 Dose: 15 mg Documented by: Prednisone (Prednisone 20 Mg Tab) 40 mg PO DAILY [facility] Last Admin: 12/03/21 12:02 Dose: 40 mg Documented by: Sodium Zirconium Cyclosilicate (Sodium Zirconium Cyclosilicate 10 Gm Packet) 10 gm PO TID [facility] Stop: 12/03/21 16:01 Last Admin: 12/03/21 11:51 Dose: 10 gm Documented by: Ticagrelor (Ticagrelor 90 Mg Tab) 90 mg PO BID [facility] Last Admin: 12/03/21 10:23 Dose: 90 mg Documented by: Past medical history to include: Stroke, diabetes, hypertension, left below-knee amputation, right heel wound Social history: [facility], smoked 2 packs a day for 45 years up to 3 weeks ago. No alcohol. . 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 Conjunctiva normal. HEENT: External appearance of nose and ears normal, oral cavity grossly normal. NECK: JVD not raised; masses not palpable. HEART: First and second heart sounds are normal; no edema. LUNGS: Respiratory rate increased; decreased breath sounds ABDOMEN: Soft, nontender, liver spleen not palpable, no masses palpable. PSYCH: Alert and oriented x3; mood and affect anxious. MUSCULOSKELETAL:No Clubbing/cyanosis;muscles-grossly intact. Right heel wound NEUROLOGICAL: Cranial nerves grossly intact; no facial asymmetry, power and sensation grossly intact. INVESTIGATIONS, reviewed in the clinical context: December 03: White count 14 hemoglobin 8.4 platelets 349 potassium 5.4 BUN 38 creatinine 2.02 procalcitonin 0.23 I 25. Transferrin 102. Ferritin 701. B12 475 White count 13.3 hemoglobin 8.3 platelets 336 potassium 4.6 BUN 33 creatinine 1.75 CRP 21.2 Troponin I 0.020, 0.017 COVID 19/influenza type A/influenza type B: Not detected EKG tracing personally reviewed by me-normal sinus rhythm. Chest x-ray film personally reviewed by me-underexposed. Patchy infiltrates Previous labs: Creatinine 1.6 on November 09 2-D echocardiogram: EF 60 have a 65% Assessment and plan: -Acute severe COPD exacerbation in a previous smoker: Some improvement DuoNeb 4 times a day. Pulmicort nebulizer twice a day. IV Solu-Medrol:-Changed to by mouth prednisone -Possible pneumonia suspected gram-negative organism/aspiration Continue IV Unasyn. Check pro-calcitonin -Right heel diabetic wound negative for osteomyelitis per MRI. Recent debridement. Culture positive for Acinetobacter, MRSA Continue Unasyn, IV daptomycin. Follow with ID -Acute on chronic hypoxic respiratory failure from COPD/pneumonia possible fluid overload BiPAP. Patient was discharged on 5 L oxygen. -Normocytic anemia/iron deficiency anemia IV Ferrlecit. -Diabetes mellitus type 2, chronically on insulin: Uncontrolled with hyperglycemia secondary to steroids Levemir 38 units. Increase 10 units with meals Humalog. Slightly scale. -Essential hypertension Coreg 12.5 mg twice a day hydralazine 100 mg 3 times a day -Diabetic peripheral neuropathy: Uncontrolled Increase Neurontin 100 mg 3 times a day -Left below-knee amputation -Full code DuoNeb. Change IV Solu-Medrol to prednisone. Nebulized bronchodilators. IV Unasyn. IV daptomycin. Increase Humalog to 10 units with meals. Lengthy discussion with the patient about narcotics. Patient understands. Increase Neurontin to 100 mg 3 times a day for neuropathic pain. Total time spent today 40 minutes with over 25 Mrs. of discussion.
--- NOTE | 2021-12-03 13:59 | P.PN ---
Subjective Progress Note Date: 12/03/21 Principal diagnosis: Acute hypoxic respiratory failure secondary to fluid overload, atelectasis, and possible aspiration pneumonia. On today's evaluation of 12/02/2021, the patient has no specific complaints. The patient was taken off the BiPAP and the patient was placed on O2 at 5 L nasal cannula. Note that overnight, the patient was in a BiPAP at a pressure of 16/6 with an FiO2 40%. Doing well perspecific complaints. Breathing is nonlabored. No chest pain. No cough sputum production chest tightness or wheezing. The patient remains on Lasix 40 mg every 12 hours. The patient is also on IV Solu Medrol 40 every 12 hours. The patient is on Unasyn and daptomycin. The blood sugars have been elevated due to steroid use. COVID 19 testing is been negative. Influenza screen is been negative. Troponins have been negative. Reevaluated today 12/03/21, patient is feeling better today, breathing easier, intermittently requiring BiPAP, presently on 5 L nasal cannula and his O2 sats is 94%. Chest x-ray is suspicious for bilateral upper lobe infiltrates/interstitial edema, and the small right-sided pleural effusion is noted. Nonetheless, his chest x-ray is showing improvement since admission. Blood cultures from 11/30 came back positive for enterococcus faeccium, patient is on Unasyn, he is also on daptomycin as per infectious disease on the case. Patient is now on Bumex 1 mg by mouth 3 times a day. Patient is also on Coreg 12.5 mg twice a day remains on bronchodilators and antibiotics. Clinically the patient is feeling better, his electrolytes are normal BUN is 38 creatinine 2.02, slightly worse compared to the last few days. Patient's baseline cre atinine has been about 1.7 Objective - Vital Signs Vital signs: Vital Signs Temp 98.2 F 12/03/21 11:47 Pulse 84 12/03/21 11:53 Resp 20 12/03/21 11:47 BP 148/84 12/03/21 11:47 Pulse Ox 94 L 12/03/21 11:47 Intake & Output 12/02/21 12/03/21 12/03/21 18:59 06:59 18:59 Intake Total 10 520 Output Total 612 182 1722 Balance -400 -880 -780 Intake: IV 10 Invasive Line 1 10 Oral 520 Output: Urine 200 455 2778 Other: Voiding Method Urinal Urinal # Bowel Movements 1 - Exam GENERAL EXAM: Revealed a 61-year-old white male in no distress on 5 L nasal cannula HEAD: Normocephalic/atraumatic. EYES: PERRLA, EOMI, nonicteric. NOSE: Clear with pink turbinates. THROAT clear, no exudates, moist mucous membranes. NECK: Supple no JVD no stridor. CHEST: No chest wall deformity. Symmetrical expansion. LUNGS: Minimal rhonchi bilaterally more so on forced expiratory maneuver. CVS: Regular rate and rhythm, normal S1 and S2, no gallops, no murmurs, no rubs ABDOMEN: Soft, nontender. No hepatosplenomegaly, normal bowel sounds, no guarding or rigidity. EXTREMITIES: No clubbing, no cyanosis. Left BKA is noted. Right lower extremity is covered with a surgical dressing, clean dry and intact. MUSCULOSKELETAL: Muscle strength and tone normal. CENTRAL NERVOUS SYSTEM: Alert and oriented 3 no focal deficits. PSYCHIATRIC: Normal mood, affect and normal mental status examination. - Labs CBC & Chem 7: 12/03/21 07:21 12/03/21 07:21 Labs: Abnormal Lab Results - Last 24 Hours (Table) 12/02/21 12/02/21 12/03/21 Range/Units 16:18 20:26 06:24 WBC (3.8-10.6) k/uL RBC (4.30-5.90) m/uL Hgb (13.0-17.5) gm/dL Hct (39.0-53.0) % MCHC (31.0-37.0) g/dL Neutrophils # (1.3-7.7) k/uL Lymphocytes # (1.0-4.8) k/uL Potassium (3.5-5.1) mmol/L BUN (9-20) mg/dL Creatinine (0.66-1.25) mg/dL Glucose (74-99) mg/dL POC Glucose (mg/dL) 376 H 333 H 359 H (75-99) mg/dL Calcium (8.4-10.2) mg/dL Procalcitonin (0.02-0.09) ng/mL 12/03/21 12/03/21 12/03/21 Range/Units 07:21 07:21 07:21 WBC 14.0 H (3.8-10.6) k/uL RBC 3.03 L (4.30-5.90) m/uL Hgb 8.4 L (13.0-17.5) gm/dL Hct 28.9 L (39.0-53.0) % MCHC 28.9 L (31.0-37.0) g/dL Neutrophils # 12.7 H (1.3-7.7) k/uL Lymphocytes # 0.6 L (1.0-4.8) k/uL Potassium 5.4 H (3.5-5.1) mmol/L BUN 38 H (9-20) mg/dL Creatinine 2.02 H (0.66-1.25) mg/dL Glucose 330 H (74-99) mg/dL POC Glucose (mg/dL) (75-99) mg/dL Calcium 8.0 L (8.4-10.2) mg/dL Procalcitonin 0.23 H (0.02-0.09) ng/mL 12/03/21 Range/Units 11:34 WBC (3.8-10.6) k/uL RBC (4.30-5.90) m/uL Hgb (13.0-17.5) gm/dL Hct (39.0-53.0) % MCHC (31.0-37.0) g/dL Neutrophils # (1.3-7.7) k/uL Lymphocytes # (1.0-4.8) k/uL Potassium (3.5-5.1) mmol/L BUN (9-20) mg/dL Creatinine (0.66-1.25) mg/dL Glucose (74-99) mg/dL POC Glucose (mg/dL) 331 H (75-99) mg/dL Calcium (8.4-10.2) mg/dL Procalcitonin (0.02-0.09) ng/mL Microbiology - Last 24 Hours (Table) 11/30/21 23:16 Blood Culture Gram Stain - Preliminary Blood Blood Culture - Preliminary Enterococcus faecium 11/30/21 23:31 Blood Culture - Preliminary Blood No Growth after 48 hours Assessment and Plan Assessment: Impression: Acute hypoxic respiratory failure, multifactorial, considering the patient responded to diuretics, and considering the patient is responding to antibiotics for his gram-positive bacteremia, we will continue the same. Patient had fluid overload as suspected on admission possible aspiration pneumonia, no clear-cut evidence of systolic or diastolic congestive heart failure. Unless the fluid overload could very well be related to acute on chronic diastolic congestive heart failure again the overall clinical picture is not clear to me at this point. Acute gram-positive bacteremia patient had positive enterococcal bacteremia and last week he had abnormal one culture including Acinetobacter and MRSA from the wound culture. Acute sepsis secondary to above. Nonhealing right heel ulcer. Type 2 diabetes. Diabetic neuropathy. Peripheral vessel occlusive disease and previous left below-knee amputation Chronic tobacco dependence syndrome Underlying COPD presently inactive History of seizure disorder. Anemia of chronic disease. Recommendation: Continue antibiotics as per ID on the case. Continue BiPAP as needed especially at night. Continue oxygen and titrate accordingly. Continue diuretics/Bumex. Continue bronchodilators. Continue steroids. Continue insulin. Will clear for discharge once the patient is cleared by infectious disease on the case, and antibiotics to be tailored by infectious disease on outpatient basis. We'll continue to follow Time with Patient: Less than 30
[2021-12-03] MEDS: BUMETANIDE 1 MG TAB PO SCH (15:37)
[2021-12-03 16:36] LABS: Glucose,Whole Blood 450 mg/dL (75-99)
[2021-12-03] MEDS ORDERED: INSULIN REGULAR BOLUS (FROM DRIP BAG) IV ONE (16:39)
[2021-12-03] MEDS ORDERED: INSULIN ASPART (NovoLOG) 100 UNIT/ML VIAL SQ SCH (17:30)
[2021-12-03] MEDS: INSULIN REGULAR 100 UNIT in SODIUM CHLORIDE 0.9% 100 ML IV SCH (17:35)
[2021-12-03 17:38] LABS: Glucose,Whole Blood 355 mg/dL (75-99)
[2021-12-03 18:22] LABS: Glucose,Whole Blood 347 mg/dL (75-99)
[2021-12-03 18:58] LABS: Glucose,Whole Blood 314 mg/dL (75-99)
[2021-12-03 19:29] LABS: Glucose,Whole Blood 269 mg/dL (75-99)
[2021-12-03 20:01] LABS: Glucose,Whole Blood 232 mg/dL (75-99)
[2021-12-03 22:09] LABS: Glucose,Whole Blood 194 mg/dL (75-99)
--- NOTE | 2021-12-03 23:24 | P.PN ---
Subjective Progress Note Date: 12/03/21 Principal diagnosis: Right heel diabetic foot infection and bacteremia Patient is a 61-year-old male with a recent diagnosis of right heel osteomyelitis on the basis of wound tracking down to the wound at the time of debridement culture were positive for Acinetobacter and MRSA, patient treated with Unasyn and daptomycin presenting back to the hospital with the acute r espiratory failure. On today's evaluation that is 12/03/2021, the patient remains to be afebrile, th e patient is breathing comfortably on nasal cannula oxygen denies having any chest pain or cough no abdominal pain or any pain to the right heel area Objective - Vital Signs Vital signs: Vital Signs Temp 98.6 F 12/03/21 15:24 Pulse 83 12/03/21 16:06 Resp 20 12/03/21 15:24 BP 157/66 12/03/21 15:24 Pulse Ox 94 L 12/03/21 15:54 Intake & Output 12/03/21 12/03/21 12/04/21 06:59 18:59 06:59 Intake Total 10 900.200 47.943 Output Total 890 2150 Balance -880 -1249.800 47.943 Intake: IV 10 100 10 Ampicillin-Sulbactam 3 gm 100 In Sodium Chloride 0.9% 100 ml @ 200 mls/hr IVPB Q8H [facility] Rx#:[id number] Invasive Line 1 10 Invasive Line 2 10 Intake, IV Titration 20.200 37.943 Amount Insulin Regular 100 unit 20.200 37.943 In Sodium Chloride 0.9% 100 ml @ Titrate IV .Q0M [facility] Rx#:[id number] Oral 780 Output: Urine 890 2150 Other: Voiding Method Urinal - Exam GENERAL DESCRIPTION: Middle-age male lying in bed in no distress RESPIRATORY SYSTEM: Unlabored breathing , decreased breath sounds at bases HEART: S1 S2 regular rate and rhythm , ABDOMEN: Soft , no tenderness EXTREMITIES: Right heel wound is currently dressed no drainage on the dressings - Labs CBC & Chem 7: 12/03/21 07:21 12/03/21 07:21 Labs: Abnormal Lab Results - Last 24 Hours (Table) 12/03/21 12/03/21 12/03/21 Range/Units 06:24 07:21 07:21 WBC 14.0 H (3.8-10.6) k/uL RBC 3.03 L (4.30-5.90) m/uL Hgb 8.4 L (13.0-17.5) gm/dL Hct 28.9 L (39.0-53.0) % MCHC 28.9 L (31.0-37.0) g/dL Neutrophils # 12.7 H (1.3-7.7) k/uL Lymphocytes # 0.6 L (1.0-4.8) k/uL Potassium (3.5-5.1) mmol/L BUN (9-20) mg/dL Creatinine (0.66-1.25) mg/dL Glucose (74-99) mg/dL POC Glucose (mg/dL) 359 H (75-99) mg/dL Calcium (8.4-10.2) mg/dL Procalcitonin 0.23 H (0.02-0.09) ng/mL 12/03/21 12/03/21 12/03/21 Range/Units 07:21 11:34 16:25 WBC (3.8-10.6) k/uL RBC (4.30-5.90) m/uL Hgb (13.0-17.5) gm/dL Hct (39.0-53.0) % MCHC (31.0-37.0) g/dL Neutrophils # (1.3-7.7) k/uL Lymphocytes # (1.0-4.8) k/uL Potassium 5.4 H (3.5-5.1) mmol/L BUN 38 H (9-20) mg/dL Creatinine 2.02 H (0.66-1.25) mg/dL Glucose 330 H (74-99) mg/dL POC Glucose (mg/dL) 331 H 450 H (75-99) mg/dL Calcium 8.0 L (8.4-10.2) mg/dL Procalcitonin (0.02-0.09) ng/mL 12/03/21 12/03/21 12/03/21 Range/Units 17:34 18:01 18:36 WBC (3.8-10.6) k/uL RBC (4.30-5.90) m/uL Hgb (13.0-17.5) gm/dL Hct (39.0-53.0) % MCHC (31.0-37.0) g/dL Neutrophils # (1.3-7.7) k/uL Lymphocytes # (1.0-4.8) k/uL Potassium (3.5-5.1) mmol/L BUN (9-20) mg/dL Creatinine (0.66-1.25) mg/dL Glucose (74-99) mg/dL POC Glucose (mg/dL) 355 H 347 H 314 H (75-99) mg/dL Calcium (8.4-10.2) mg/dL Procalcitonin (0.02-0.09) ng/mL 12/03/21 12/03/21 12/03/21 Range/Units 19:28 19:59 22:06 WBC (3.8-10.6) k/uL RBC (4.30-5.90) m/uL Hgb (13.0-17.5) gm/dL Hct (39.0-53.0) % MCHC (31.0-37.0) g/dL Neutrophils # (1.3-7.7) k/uL Lymphocytes # (1.0-4.8) k/uL Potassium (3.5-5.1) mmol/L BUN (9-20) mg/dL Creatinine (0.66-1.25) mg/dL Glucose (74-99) mg/dL POC Glucose (mg/dL) 269 H 232 H 194 H (75-99) mg/dL Calcium (8.4-10.2) mg/dL Procalcitonin (0.02-0.09) ng/mL Microbiology - Last 24 Hours (Table) 12/02/21 16:45 Blood Culture - Preliminary Blood No Growth after 24 hours 12/02/21 15:21 Blood Culture - Preliminary Blood No Growth after 24 hours 12/02/21 15:45 Blood Culture - Preliminary Blood No Growth after 24 hours 11/30/21 23:16 Blood Culture Gram Stain - Preliminary Blood Blood Culture - Preliminary Enterococcus faecium 11/30/21 23:31 Blood Culture - Preliminary Blood No Growth after 48 hours Assessment and Plan (1) Diabetic infection of right foot Current Visit: Yes Status: Acute Code(s): E11.628 - TYPE 2 DIABETES MELLITUS WITH OTHER SKIN COMPLICATIONS; L08.9 - LOCAL INFECTION OF THE SKIN AND SUBCUTANEOUS TISSUE, UNSP SNOMED Code(s): 24829772 Plan: 1patient with her right heel diabetic foot infection in this patient who is status post surgical debridement and culture positive for MRSA anaerobes and Acinetobacter the patient seem to have clinically responded as the patient right heel wound has decrease in size and does not look that deep with no surrounding redness and x-rays were negative for any osteomyelitis. 2patient with a positive blood culture with enterococcus concern for possible PICC related, blood cultures has been repeated from the PICC line and peripherally and are currently pending 3patient to continue with Unasyn and daptomycin 6 mg/kg maintenance. 4local wound care to the right heel wound with the Medihoney followed by moist dressing keep the area of the pressure. Time with Patient: Less than 30
[2021-12-04 00:04] LABS: Glucose,Whole Blood 169 mg/dL (75-99)
[2021-12-04] MEDS: IPRATROPIUM-ALBUTEROL 3 ML NEB INHALATION SCH ×7 (01:02→23:24)
[2021-12-04 02:11] LABS: Glucose,Whole Blood 163 mg/dL (75-99)
[2021-12-04] MEDS: INSULIN REGULAR 100 UNIT in SODIUM CHLORIDE 0.9% 100 ML IV SCH (02:35)
[2021-12-04 04:04] LABS: Glucose,Whole Blood 153 mg/dL (75-99)
[2021-12-04 05:49] LABS: Glucose,Whole Blood 138 mg/dL (75-99)
[2021-12-04] MEDS: INSULIN ASPART (NovoLOG) 100 UNIT/ML VIAL SQ SCH ×3 (06:10→17:19)
[2021-12-04] MEDS: AMPICILLIN-SULBACTAM 3 GM in SODIUM CHLORIDE 0.9% 100 ML IVPB SCH ×3 (06:18→21:18)
[2021-12-04] MEDS: carvediloL 12.5 MG TAB PO SCH ×2 (06:18→15:56)
[2021-12-04 08:14] LABS: Glucose,Whole Blood 193 mg/dL (75-99)
[2021-12-04] MEDS: BUDESONIDE 1 MG/2 ML NEBU INHALATION SCH ×2 (08:38→19:47)
[2021-12-04 09:35] LABS: Glucose,Whole Blood 203 mg/dL (75-99)
[2021-12-04] MEDS: ENOXAPARIN 40 MG/0.4 ML SYRINGE SQ SCH (09:35)
[2021-12-04] MEDS: BUMETANIDE 1 MG TAB PO SCH ×2 (09:35→15:56)
[2021-12-04] MEDS: levETIRAcetam 500 MG TAB PO SCH ×2 (09:35→21:17)
[2021-12-04] MEDS: GABAPENTIN 100 MG CAP PO SCH ×3 (09:36→21:17)
[2021-12-04] MEDS: TICAGRELOR 90 MG TAB PO SCH ×2 (09:36→21:18)
[2021-12-04] MEDS: LORazepam 0.5 MG TAB PO PRN ×2 (09:36→23:01)
[2021-12-04] MEDS: predniSONE 20 MG TAB PO SCH (09:36)
[2021-12-04] MEDS: hydrALAZINE HCL 50 MG TAB PO SCH ×3 (09:38→21:17)
[2021-12-04 11:08] LABS: Albumin 2.8 g/dL (3.5-5.0); Potassium 4.2 mmol/L (3.5-5.1); Total Bilirubin 0.4 mg/dL (0.2-1.3); Total Protein 6.1 g/dL (6.3-8.2)
[2021-12-04 11:51] LABS: Glucose,Whole Blood 203 mg/dL (75-99)
--- NOTE | 2021-12-04 12:57 | P.PN ---
Subjective Progress Note Date: 12/04/21 Principal diagnosis: Acute hypoxic respiratory failure secondary to fluid overload, atelectasis, and possible aspiration pneumonia. On today's evaluation of 12/02/2021, the patient has no specific complaints. The patient was taken off the BiPAP and the patient was placed on O2 at 5 L nasal cannula. Note that overnight, the patient was in a BiPAP at a pressure of 16/6 with an FiO2 40%. Doing well perspecific complaints. Breathing is nonlabored. No chest pain. No cough sputum production chest tightness or wheezing. The patient remains on Lasix 40 mg every 12 hours. The patient is also on IV Solu Medrol 40 every 12 hours. The patient is on Unasyn and daptomycin. The blood sugars have been elevated due to steroid use. COVID 19 testing is been negative. Influenza screen is been negative. Troponins have been negative. Reevaluated today 12/03/21, patient is feeling better today, breathing easier, intermittently requiring BiPAP, presently on 5 L nasal cannula and his O2 sats is 94%. Chest x-ray is suspicious for bilateral upper lobe infiltrates/interstitial edema, and the small right-sided pleural effusion is noted. Nonetheless, his chest x-ray is showing improvement since admission. Blood cultures from 11/30 came back positive for enterococcus faeccium, patient is on Unasyn, he is also on daptomycin as per infectious disease on the case. Patient is now on Bumex 1 mg by mouth 3 times a day. Patient is also on Coreg 12.5 mg twice a day remains on bronchodilators and antibiotics. Clinically the patient is feeling better, his electrolytes are normal BUN is 38 creatinine 2.02, slightly worse compared to the last few days. Patient's baseline cre atinine has been about 1.7 Patient was reevaluated today on 12/04/21, pulmonary-resendez the patient is feeling better, breathing easier, remains on broad-spectrum antibiotics, being followed by infectious disease on the case. Patient had positive blood cultures on this admission including enterococcus patient remains on daptomycin and Unasyn. And he remains under local wound care for his right heel wound. Pulmonary-resendez, the patient remains on 5 L nasal cannula, does not seem to be in any distress. Chest x-ray from yesterday was reviewed, continues to have scattered reticular nodular infiltrates. Improving compared to baseline, he does have also a small right pleural effusion Objective - Vital Signs Vital signs: Vital Signs Temp 98.1 F 12/04/21 08:00 Pulse 85 12/04/21 08:00 Resp 18 12/04/21 12:02 BP 144/66 12/04/21 08:00 Pulse Ox 93 L 12/04/21 12:02 Intake & Output 12/03/21 12/04/21 12/04/21 18:59 06:59 18:59 Intake Total 900.200 372.580 143.736 Output Total 2150 350 Balance -1249.800 22.580 143.736 Weight 103.5 kg Intake: IV 100 10 10 Ampicillin-Sulbactam 3 gm 100 In Sodium Chloride 0.9% 100 ml @ 200 mls/hr IVPB Q8H [facility] Rx#:[id number] Invasive Line 2 10 10 Intake, IV Titration 20.200 62.580 13.736 Amount Insulin Regular 100 unit 20.200 62.580 13.736 In Sodium Chloride 0.9% 100 ml @ Titrate IV .Q0M [facility] Rx#:[id number] Oral 780 300 120 Output: Urine 2150 350 Other: Voiding Method Urinal Urinal - Exam GENERAL EXAM: Revealed a 61-year-old white male in no distress on 5 L nasal cannula HEAD: Normocephalic/atraumatic. EYES: PERRLA, EOMI, nonicteric. NOSE: Clear with pink turbinates. THROAT clear, no exudates, moist mucous membranes. NECK: Supple no JVD no stridor. CHEST: No chest wall deformity. Symmetrical expansion. LUNGS: Minimal rhonchi bilaterally more so on forced expiratory maneuver. CVS: Regular rate and rhythm, normal S1 and S2, no gallops, no murmurs, no rubs ABDOMEN: Soft, nontender. No hepatosplenomegaly, normal bowel sounds, no guarding or rigidity. EXTREMITIES: No clubbing, no cyanosis. Left BKA is noted. Right lower extremity is covered with a surgical dressing, clean dry and intact. MUSCULOSKELETAL: Muscle strength and tone normal. CENTRAL NERVOUS SYSTEM: Alert and oriented 3 no focal deficits. PSYCHIATRIC: Normal mood, affect and normal mental status examination. - Labs CBC & Chem 7: 12/03/21 07:21 12/04/21 10:23 Labs: Abnormal Lab Results - Last 24 Hours (Table) 12/03/21 12/03/21 12/03/21 Range/Units 16:25 17:34 18:01 BUN (9-20) mg/dL Creatinine (0.66-1.25) mg/dL Glucose (74-99) mg/dL POC Glucose (mg/dL) 450 H 355 H 347 H (75-99) mg/dL Calcium (8.4-10.2) mg/dL Total Protein (6.3-8.2) g/dL Albumin (3.5-5.0) g/dL 12/03/21 12/03/21 12/03/21 Range/Units 18:36 19:28 19:59 BUN (9-20) mg/dL Creatinine (0.66-1.25) mg/dL Glucose (74-99) mg/dL POC Glucose (mg/dL) 314 H 269 H 232 H (75-99) mg/dL Calcium (8.4-10.2) mg/dL Total Protein (6.3-8.2) g/dL Albumin (3.5-5.0) g/dL 12/03/21 12/04/21 12/04/21 Range/Units 22:06 00:03 02:09 BUN (9-20) mg/dL Creatinine (0.66-1.25) mg/dL Glucose (74-99) mg/dL POC Glucose (mg/dL) 194 H 169 H 163 H (75-99) mg/dL Calcium (8.4-10.2) mg/dL Total Protein (6.3-8.2) g/dL Albumin (3.5-5.0) g/dL 12/04/21 12/04/21 12/04/21 Range/Units 04:02 05:48 08:02 BUN (9-20) mg/dL Creatinine (0.66-1.25) mg/dL Glucose (74-99) mg/dL POC Glucose (mg/dL) 153 H 138 H 193 H (75-99) mg/dL Calcium (8.4-10.2) mg/dL Total Protein (6.3-8.2) g/dL Albumin (3.5-5.0) g/dL 05/03/22 05/03/22 05/03/22 Range/Units 09:33 10:23 11:39 BUN 40 H (9-20) mg/dL Creatinine 1.72 H (0.66-1.25) mg/dL Glucose 176 H (74-99) mg/dL POC Glucose (mg/dL) 203 H 203 H (75-99) mg/dL Calcium 8.0 L (8.4-10.2) mg/dL Total Protein 6.1 L (6.3-8.2) g/dL Albumin 2.8 L (3.5-5.0) g/dL Microbiology - Last 24 Hours (Table) 11/30/21 23:31 Blood Culture - Preliminary Blood No Growth after 72 hours 12/02/21 16:45 Blood Culture - Preliminary Blood No Growth after 24 hours 12/02/21 15:21 Blood Culture - Preliminary Blood No Growth after 24 hours 12/02/21 15:45 Blood Culture - Preliminary Blood No Growth after 24 hours 11/30/21 23:16 Blood Culture Gram Stain - Preliminary Blood Blood Culture - Preliminary Enterococcus faecium Assessment and Plan Assessment: Impression: Acute hypoxic respiratory failure, multifactorial, considering the patient responded to diuretics, and considering the patient is responding to antibiotics for his gram-positive bacteremia, we will continue the same. Patient had fluid overload as suspected on admission possible aspiration pneumonia, no clear-cut evidence of systolic or diastolic congestive heart failure. Unless the fluid overload could very well be related to acute on chronic diastolic congestive heart failure again the overall clinical picture is not clear to me at this point. Acute gram-positive bacteremia patient had positive enterococcal bacteremia and last week he had abnormal one culture including Acinetobacter and MRSA from the wound culture. Acute sepsis secondary to above. Nonhealing right heel ulcer. Type 2 diabetes. Diabetic neuropathy. Peripheral vessel occlusive disease and previous left below-knee amputation Chronic tobacco dependence syndrome Underlying COPD presently inactive History of seizure disorder. Anemia of chronic disease. Recommendation: Continue antibiotics as per ID on the case. Continue BiPAP as needed especially at night. Continue oxygen and titrate accordingly. Continue diuretics/Bumex. Continue bronchodilators. Continue steroids. Continue insulin. front services agent to address placement We'll continue to follow Time with Patient: Less than 30
[2021-12-04 13:48] LABS: Glucose,Whole Blood 265 mg/dL (75-99)
--- NOTE | 2021-12-04 15:10 | P.PN ---
Progress Note - Text Progress Note Date: 12/04/21 Chief Complaint: Shortness of breath This is a 61-year-old patient, now following with Dr. Smalls and [facility] of [place] on. Patient was previously living in [place] then it moved to [place] for to 3 months. When patient came back and got admitted here because the daughter lives in town. Chronic stable medical conditions include diabetes, hypertension, left below- knee amputation. Patient was recently admitted to the hospital on 11/09/2021 with a right foot nonhealing ulcer. Had been a smoker up to recently. Wound on right heel, wound cultures were positive for Acinetobacter and MRSA. MRI was negative for osteomyelitis. Patient was discharged and IV Unasyn and daptomycin. Patient was discharged on ER and BiPAP. He had desaturated there and he was transferred as patient became short of breath. And was readmitted. Plan was patient received few weeks of antibiotics. Patient admitted with shortness of breath. Some cough. No sputum. No fever no chills. Some wheezing. Did feel a bit better with bronchodilators. Steroids. Admitted with acute COPD exacerbation, pneumonia, right heel wound. IV Unasyn daptomycin continued. Bronchodilators. Steroids. December 1: Breathing a bit better. Oral intake good. Some pain in the right heel. Being followed by ID and primary. Had a BM. December 2: Breathing better. Had a very lengthy discussion with the patient about his narcotic. And phantom pain. Pros and cause of increasing narcotics was discussed. Will increase Neurontin to 100 mg 3 times a day. Oral intake fair. Potassium increased we'll order Lokelma. And renal diet December 3: Complaining of significant pain in the right foot. Though it's a chronic issue. Pain management consulted. Neurontin was increased yesterday. Patient also complaining of restless leg. Requip 0.5 mg 3 times a day started. Care discussed length with the patient. Patient on insulin drip from yesterday because of uncontrolled Accu-Cheks. Prednisone cutback. Active Medications Albuterol/Ipratropium (Ipratropium-Albuterol 3 Ml Neb) 3 ml INHALATION RT-Q4H [facility] Last Admin: 12/04/21 11:35 Dose: Not Given Documented by: Budesonide (Budesonide 1 Mg/2 Ml Nebu) 1 mg INHALATION RT-BID [facility] Last Admin: 12/04/21 08:38 Dose: Not Given Documented by: Bumetanide (Bumetanide 1 Mg Tab) 1 mg PO BID@0900,1600 [facility] Last Admin: 12/04/21 09:35 Dose: 1 mg Documented by: Carvedilol (Carvedilol 12.5 Mg Tab) 12.5 mg PO BID-W/MEALS [facility] Last Admin: 12/04/21 06:18 Dose: 12.5 mg Documented by: Enoxaparin Sodium (Enoxaparin 40 Mg/0.4 Ml Syringe) 40 mg SQ DAILY [facility] Last Admin: 12/04/21 09:35 Dose: 40 mg Documented by: Gabapentin (Gabapentin 100 Mg Cap) 100 mg PO TID [facility] Last Admin: 12/04/21 09:36 Dose: 100 mg Documented by: Hydralazine HCl (Hydralazine Hcl 50 Mg Tab) 100 mg PO TID [facility] Last Admin: 12/04/21 09:38 Dose: 100 mg Documented by: Daptomycin 600 mg/ Sodium (Chloride) 50 mls @ 100 mls/hr IVPB Q24H [facility]; Protocol Last Admin: 12/04/21 02:10 Dose: 100 mls/hr Documented by: Ampicillin Sodium/Sulbactam (Sodium 3 gm/ Sodium Chloride) 100 mls @ 200 mls/hr IVPB Q8H [facility]; Protocol Last Admin: 12/04/21 14:01 Dose: 200 mls/hr Documented by: Insulin Human Regular 100 unit (/ Sodium Chloride) 101 mls @ 0 mls/hr IV .Q0M [facility]; Protocol Last Titration: 12/04/21 13:57 Dose: 8.5 units/hr, 8.585 mls/hr Documented by: Insulin Aspart (Insulin Aspart (Novolog) 100 Unit/Ml Vial) 13 unit 0.13 unit/kg (13 unit) SQ AC-TID [facility] Last Admin: 12/04/21 12:35 Dose: 13 unit Documented by: Ketoconazole (Ketoconazole 2% Shampoo 1 Applic/Ml) 1 applic TOPICAL MoTh [facility] Last Admin: 12/03/21 13:26 Dose: Not Given Documented by: Levetiracetam (Levetiracetam 500 Mg Tab) 1,000 mg PO BID [facility] Last Admin: 12/04/21 09:35 Dose: 1,000 mg Documented by: Lorazepam (Lorazepam 0.5 Mg Tab) 0.5 mg PO Q8HR PRN PRN Reason: Agitation or Acute Anxiety Last Admin: 12/04/21 09:36 Dose: 0.5 mg Documented by: Oxycodone HCl (Oxycodone Hcl 5 Mg Tab) 15 mg PO TID [facility]; Protocol Last Admin: 12/04/21 09:36 Dose: 15 mg Documented by: Prednisone (Prednisone 10 Mg Tab) 30 mg PO DAILY [facility] Ropinirole HCl (Ropinirole Hcl 0.25 Mg Tab) 0.5 mg PO TID [facility] Last Admin: 12/04/21 14:00 Dose: 0.5 mg Documented by: Ticagrelor (Ticagrelor 90 Mg Tab) 90 mg PO BID [facility] Last Admin: 12/04/21 09:36 Dose: 90 mg Documented by: Past medical history to include: Stroke, diabetes, hypertension, left below-knee amputation, right heel wound Social history: [facility], smoked 2 packs a day for 45 years up to 3 weeks ago. No alcohol. . 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 GENERAL: reclining in bed, more comfortable EYES: Pupils equal. Conjunctiva normal. HEENT: External appearance of nose and ears normal, oral cavity grossly normal. NECK: JVD not raised; masses not palpable. HEART: First and second heart sounds are normal; no edema. LUNGS: Respiratory rate increased; decreased breath sounds ABDOMEN: Soft, nontender, liver spleen not palpable, no masses palpable. PSYCH: Alert and oriented x3; mood and affect anxious. MUSCULOSKELETAL:No Clubbing/cyanosis;muscles-grossly intact. Right heel wound NEUROLOGICAL: Cranial nerves grossly intact; no facial asymmetry, power and sensation grossly intact. INVESTIGATIONS, reviewed in the clinical context: December 04: Sodium 141 potassium 4.2 BUN 40 creatinine 1.7 to December 03: White count 14 hemoglobin 8.4 platelets 349 potassium 5.4 BUN 38 creatinine 2.02 procalcitonin 0.23 I 25. Transferrin 102. Ferritin 701. B12 475 White count 13.3 hemoglobin 8.3 platelets 336 potassium 4.6 BUN 33 creatinine 1.75 CRP 21.2 Troponin I 0.020, 0.017 COVID 19/influenza type A/influenza type B: Not detected EKG tracing personally reviewed by me-normal sinus rhythm. Chest x-ray film personally reviewed by me-underexposed. Patchy infiltrates Previous labs: Creatinine 1.6 on November 09 2-D echocardiogram: EF 60 have a 65% Assessment and plan: -Acute severe COPD exacerbation in a previous smoker: Improvement DuoNeb 4 times a day. Pulmicort nebulizer twice a day. Cut back prednisone to 30 mg daily from tomorrow. -Possible pneumonia suspected gram-negative organism/aspiration Continue IV Unasyn. -Right heel diabetic wound negative for osteomyelitis per MRI. Recent debridement. Culture positive for Acinetobacter, MRSA Continue Unasyn, IV daptomycin. Follow with ID -Acute on chronic hypoxic respiratory failure from COPD/pneumonia possible fluid overload BiPAP. Patient was discharged on 5 L oxygen. Currently down to 3 L. -Normocytic anemia/iron deficiency anemia IV Ferrlecit. -Diabetes mellitus type 2, chronically on insulin: Uncontrolled with hyperglycemia secondary to steroids On insulin drip. Levemir 38 units. Increase 10 units with meals Humalog. Slightly scale. -Essential hypertension Coreg 12.5 mg twice a day hydralazine 100 mg 3 times a day -Diabetic peripheral neuropathy: Uncontrolled Neurontin 100 mg 3 times a day -Restless leg syndrome: Uncontrolled Requip 0.5 mg by mouth 3 times a day -Left below-knee amputation -Full code requip 0.5 mg by mouth 3 times a day for restless leg syndrome. Neurontin was increased yesterday. Consult pain services. Cut back prednisone to 30 mg. Discussed at length with the patient. Patient insulin drip-will DC tonight. Change to Levemir tonight. Total time spent about 40 minutes with over 20 minutes of discussion.
[2021-12-04 15:43] LABS: Glucose,Whole Blood 171 mg/dL (75-99)
[2021-12-04 17:21] LABS: Glucose,Whole Blood 177 mg/dL (75-99)
[2021-12-04 18:07] LABS: Glucose,Whole Blood 230 mg/dL (75-99)
[2021-12-04 20:23] LABS: Glucose,Whole Blood 229 mg/dL (75-99)
[2021-12-04] MEDS: INSULIN DETEMIR (LEVEMIR) 100 UNIT/ML SYR SQ SCH (21:19)
[2021-12-05 01:12] LABS: Glucose,Whole Blood 410 mg/dL (75-99)
[2021-12-05] MEDS ORDERED: INSULIN ASPART (NovoLOG) 100 UNIT/ML VIAL SQ ONE ×2 (01:26→21:03)
[2021-12-05] MEDS: ACETAMINOPHEN TAB 500 MG TAB PO PRN ×3 (01:41→19:33)
[2021-12-05] MEDS: IPRATROPIUM-ALBUTEROL 3 ML NEB INHALATION SCH ×5 (03:21→21:19)
[2021-12-05] MEDS: AMPICILLIN-SULBACTAM 3 GM in SODIUM CHLORIDE 0.9% 100 ML IVPB SCH ×3 (05:13→22:08)
[2021-12-05 07:01] LABS: Glucose,Whole Blood 229 mg/dL (75-99)
[2021-12-05] MEDS: BUDESONIDE 1 MG/2 ML NEBU INHALATION SCH ×2 (07:18→21:18)
[2021-12-05] MEDS: hydrALAZINE HCL 50 MG TAB PO SCH ×3 (08:50→22:08)
[2021-12-05] MEDS: GABAPENTIN 100 MG CAP PO SCH ×3 (08:50→22:08)
[2021-12-05] MEDS: ENOXAPARIN 40 MG/0.4 ML SYRINGE SQ SCH ×2 (08:50→09:34)
[2021-12-05] MEDS: INSULIN ASPART (NovoLOG) 100 UNIT/ML VIAL SQ SCH ×4 (08:50→21:15)
[2021-12-05] MEDS: carvediloL 12.5 MG TAB PO SCH ×2 (08:50→16:52)
[2021-12-05] MEDS: predniSONE 10 MG TAB PO SCH (08:50)
[2021-12-05] MEDS: levETIRAcetam 500 MG TAB PO SCH ×2 (10:21→21:16)
[2021-12-05] MEDS: TICAGRELOR 90 MG TAB PO SCH ×2 (10:21→21:16)
[2021-12-05] MEDS: BUMETANIDE 1 MG TAB PO SCH ×2 (10:21→15:56)
[2021-12-05 11:57] LABS: Glucose,Whole Blood 260 mg/dL (75-99)
--- NOTE | 2021-12-05 15:49 | P.CON ---
Consult Note - . Consult date: 12/05/21 Assessment/Plan:: HISTORY OF PRESENT ILLNESS: 61 year old male as a referral from Dr He admitted to [facility] on 11/30/2021 for complications of diabetes mellitus presents today with chronic & severe pain secondary to RLE ulcer for evaluation. Pt states his pain level is 10/10 in intensity in his RLE. States his pain was managed on an outpatient basis with oxycodone IR 30mg but his physician weaned him down "a few months ago." Information has been verified by [facility] where he was receiving Oxycodone IR 30mg three times a day up until June,. Pt states his pain is stinging, burning, constant and presents without provocation. Pain is relieved with medications, physical therapy, alternating heat & ice and repositioning. Past Medical History: CVA/TIA, Diabetes Mellitus, Hypertension Additional Past Medical History / Comment(s): LLE AKA History of Any Multi-Drug Resistant Organisms: Acinetobacter (MDRO), MRSA Year Discovered:: 11/11/21 MDRO Source: R Heel-MRSA Additional Past Surgical History / Comment(s): BKA right leg Past Anesthesia/Blood Transfusion Reactions: No Reported Reaction Past Psychological History: No Psychological Hx Reported Smoking Status: Daily tobacco use Past Alcohol Use History: None Reported Past Drug Use History: None Reported All: NKDA Meds: See list REVIEW OF ORGAN SYSTEMS: CONSTITUTIONAL: No fevers or chills. No recent weight loss. HEENT: No visual acuity loss, eye pain, difficulties with hearing. No nosebleeds. No difficulty swallowing. RESPIRATORY: Denies any troubles with breathing or dyspnea on exertion. CARDIOVASCULAR: Denies any chest pain, palpitations, or recent heart attacks. GASTROINTESTINAL: Denies fatty food intolerance. Has change in bowel habits and gas bloat. GENITOURINARY: Denies any blood in urine. Has increased urinary frequency. NEUROLOGICAL: +numbness and tingling along the distal extremities. No seizure disorders or headaches. MUSCULOSKELETAL: + back pain SKIN: No skin cancer. No rash. PSYCHIATRIC: Denies current depression or suicidal thoughts. ENDOCRINE: Denies current thyroid disorders. Denies any blood sugar glucose intolerance. HEME/LYMPHATIC: Denies any lumps and bumps around the neck. History of deep venous thrombosis. ALLERGY/IMMUNOLOGY: No immunoglobulin therapy. No immune deficiencies. BREAST: Denies current breast lumps, pain or nipple discharge. Physical Examinations : Constitutional : Cooperative , not in acute distress . On oxygen via nasal canula. HEENT: Neck supple. No Lymphadenopathy. Normal thyroid size . Eyes no ptosis , no icterus, no photophobia . Hearing intact. Normal oropharynx. No Thrush. Respiratory : Chest clear to auscultations bilaterally. No wheezing. No rhonchi. Cardiovascular : Regular rate and rhythm , S1 / S2. No S3 . No S4. Gastrointestinal : Abdomen soft. No tenderness. Bowel sounds x 4. No organomegaly . Genitourinary : Deferred. Neurologic : Cranial nerve II to XII intact. No focal neurological deficits. Psychiatric : alert & oriented x 3. Matching mood & appropriate affect. Judgment & insight intact. Lymphatic No Lymphadenopathy. Musculoskeletal : Cervical Spine Motor strength in the deltoid and biceps: Normal right side. Normal Left side Motor strength biceps and the wrist extensors: Normal right side . Normal left side Motor strength in the triceps muscle: Normal right side. Normal left side Deep tendon reflexes: Normal at the biceps. Normal at Brachioradialis. Normal at triceps Cervical facet loading test: positive bilaterally Spurling test: positive bilaterally Neck distraction test: positive bilaterally Giancarlo sign: positive bilaterally Lumbar spine Motor strength lower extremities ,thigh and legs 5/5 Right side , 5/5 Left side Deep tendon reflexes : Normal Knee Jerk. Normal Ankle Jerk Vertebral body tenderness over Lumbar facet Loading Test: positive Right / positive Left Range of motion of the lumbar spine Flexion 30 degrees, extension 10 degrees Straight Leg Raise test: Left/ Right positive at degree Sloane test: positive right / positive left. Severe tenderness over the Sacroiliac joint on the Right / Left sides Gaenslen test: positive bilaterally Seated flexion test: positive bilaterally. Extremities LLE AKA RLE BKA with 2cm ulceration, surrounding erythema, dressing intact Assessment/ Plan : RLE diabetic foot ulcer Recommendation of Oxycodone 15mg 1-2 tabs PO q8h prn pain. Pt will be transitioned to rehab within the next 24 hrs. MAPS reviewed and consistent All questions answered. I have spent greater than 50 minutes on patient care today. Dr Loomis was available by phone for the evaluation of this patient. The time was used to review the medical records including relevant urine studies and Prescription history (MAPs), review of the available imaging, evaluation and examination of the patient, coordination of care with the medical staff and if applicable referring physicians, as well as creation of the medical record PQRS Measure Charge Sheet - Pain Location Generalized Non-Pharmacological Interventions: Darkened Room, Distraction, Position/Reposition Pharmacological Interventions: Discuss Pain Med Options Pain Comment: see mar PQRS Narrative: Blood Pressure [Left Arm] 166/70 Blood Pressure 122/60 Pain Intensity [Generalized] 10 Pain Intensity [None] 0 Pain Intensity 10 Pain Scale Used Numeric (1 - 10) Scale Used Numeric (1 - 10) Home Medications: Ambulatory Orders Carvedilol [Coreg] 12.5 mg PO BID-W/MEALS 11/09/21 Ketoconazole 2% Shampoo [Nizoral] 1 applic TOPICAL DIRECTED 11/09/21 Ticagrelor [Brilinta] 90 mg PO BID 11/09/21 levETIRAcetam [Keppra] 1,000 mg PO BID 11/09/21 Ampicillin-Sulbactam [Unasyn] 3 gm IVPB Q6HR 27 Days #108 each 11/30/21 Bumetanide [BUMEX] 1 mg PO BID 30 Days #60 tablet 11/30/21 DAPTOmycin [Daptomycin] 500 mg IV DAILY 27 Days #27 each 11/30/21 Tamsulosin [Flomax] 0.4 mg PO PC-BRKFST #30 11/30/21 hydrALAZINE HCL [Apresoline] 100 mg PO TID 30 Days #90 tab 11/30/21 Acetaminophen Tab [Tylenol] 1,000 mg PO Q6HR PRN tab 12/05/21 Budesonide [Pulmicort] 1 mg INHALATION RT-BID ml 12/05/21 Gabapentin [Neurontin] 100 mg PO TID 30 Days #9 cap 12/05/21 Insulin Detemir (Levemir) [Levemir] 34 unit SQ HS 30 Days #6 ml 12/05/21 Insulin Lispro [humaLOG Kwikpen] 10 units SQ AC-TID 30 Days #6 ml 12/05/21 Ipratropium-Albuterol Nebulize [Duoneb 0.5 mg-3 mg/3 ml Soln] 3 ml INHALATION TID ml 12/05/21 predniSONE 0 mg PO DIRECTED #12 tab 12/05/21 rOPINIRole HCL [Requip] 0.5 mg PO TID #9 tab 12/05/21
[2021-12-05] MEDS ORDERED: oxyCODONE ER 15 MG TAB.ER.12H PO SCH (16:00)
[2021-12-05 16:50] LABS: Glucose,Whole Blood 371 mg/dL (75-99)
--- NOTE | 2021-12-05 16:50 | P.PN ---
Progress Note - Text Progress Note Date: 12/05/21 Chief Complaint: Shortness of breath This is a 61-year-old patient, now following with Dr. Smalls and [facility] [place] on. Patient was previously living in [place] then it moved to [place] for to 3 months. When patient came back and got admitted here because the daughter lives in town. Chronic stable medical conditions include diabetes, hypertension, left below- knee amputation. Patient was recently admitted to the hospital on 11/09/2021 with a right foot nonhealing ulcer. Had been a smoker up to recently. Wound on right heel, wound cultures were positive for Acinetobacter and MRSA. MRI was negative for osteomyelitis. Patient was discharged and IV Unasyn and daptomycin. Patient was discharged on ER and BiPAP. He had desaturated there and he was transferred as patient became short of breath. And was readmitted. Plan was patient received few weeks of antibiotics. Patient admitted with shortness of breath. Some cough. No sputum. No fever no chills. Some wheezing. Did feel a bit better with bronchodilators. Steroids. Admitted with acute COPD exacerbation, pneumonia, right heel wound. IV Unasyn daptomycin continued. Bronchodilators. Steroids. December 1: Breathing a bit better. Oral intake good. Some pain in the right heel. Being followed by ID and primary. Had a BM. December 2: Breathing better. Had a very lengthy discussion with the patient about his narcotic. And phantom pain. Pros and cause of increasing narcotics was discussed. Will increase Neurontin to 100 mg 3 times a day. Oral intake fair. Potassium increased we'll order Lokelma. And renal diet December 3: Complaining of significant pain in the right foot. Though it's a chronic issue. Pain management consulted. Neurontin was increased yesterday. Patient also complaining of restless leg. Requip 0.5 mg 3 times a day started. Care discussed length with the patient. Patient on insulin drip from yesterday because of uncontrolled Accu-Cheks. Prednisone cutback. December 05: Eating well. Patient was seen by pain management services. Put on Bartlett 10 every 6 when necessary. Authorization was declined by patient's insurance company. I left my number at the insurance company to call me back. Spoke earlier with a case reviewer. Breathing stable. Active Medications Acetaminophen (Acetaminophen Tab 500 Mg Tab) 1,000 mg PO Q6HR PRN PRN Reason: Fever and/ or Pain Last Admin: 12/05/21 11:20 Dose: 1,000 mg Documented by: Albuterol/Ipratropium (Ipratropium-Albuterol 3 Ml Neb) 3 ml INHALATION RT-Q4H [facility] Last Admin: 12/05/21 12:21 Dose: 3 ml Documented by: Budesonide (Budesonide 1 Mg/2 Ml Nebu) 1 mg INHALATION RT-BID [facility] Last Admin: 12/05/21 07:18 Dose: 1 mg Documented by: Bumetanide (Bumetanide 1 Mg Tab) 1 mg PO BID@0900,1600 [facility] Last Admin: 12/05/21 15:56 Dose: 1 mg Documented by: Carvedilol (Carvedilol 12.5 Mg Tab) 12.5 mg PO BID-W/MEALS [facility] Last Admin: 12/05/21 08:50 Dose: 12.5 mg Documented by: Enoxaparin Sodium (Enoxaparin 40 Mg/0.4 Ml Syringe) 40 mg SQ DAILY [facility] Last Admin: 12/05/21 09:34 Dose: Not Given Documented by: Gabapentin (Gabapentin 100 Mg Cap) 100 mg PO TID [facility] Last Admin: 12/05/21 15:56 Dose: 100 mg Documented by: Hydralazine HCl (Hydralazine Hcl 50 Mg Tab) 100 mg PO TID [facility] Last Admin: 12/05/21 15:56 Dose: 100 mg Documented by: Daptomycin 600 mg/ Sodium (Chloride) 50 mls @ 100 mls/hr IVPB Q24H [facility]; Protocol Last Admin: 12/05/21 01:01 Dose: 100 mls/hr Documented by: Ampicillin Sodium/Sulbactam (Sodium 3 gm/ Sodium Chloride) 100 mls @ 200 mls/hr IVPB Q8H [facility]; Protocol Last Admin: 12/05/21 14:06 Dose: 200 mls/hr Documented by: Insulin Aspart (Insulin Aspart (Novolog) 100 Unit/Ml Vial) 10 unit SQ AC-TID [facility] Last Admin: 12/05/21 12:01 Dose: 10 unit Documented by: Insulin Detemir (Insulin Detemir (Levemir) 100 Unit/Ml Syr) 30 unit SQ HS [facility] Last Admin: 12/04/21 21:19 Dose: 30 unit Documented by: Ketoconazole (Ketoconazole 2% Shampoo 1 Applic/Ml) 1 applic TOPICAL MoTh [facility] Last Admin: 12/03/21 13:26 Dose: Not Given Documented by: Levetiracetam (Levetiracetam 500 Mg Tab) 1,000 mg PO BID [facility] Last Admin: 12/05/21 10:21 Dose: 1,000 mg Documented by: Lorazepam (Lorazepam 0.5 Mg Tab) 0.5 mg PO Q8HR PRN PRN Reason: Agitation or Acute Anxiety Last Admin: 12/04/21 23:01 Dose: 0.5 mg Documented by: Oxycodone/Acetaminophen (Oxycodone-Apap 10-325mg 1 Each Tab) 1 each PO Q6HR PRN PRN Reason: Pain Stop: 12/06/21 23:59 Prednisone (Prednisone 10 Mg Tab) 30 mg PO DAILY [facility] Last Admin: 12/05/21 08:50 Dose: 30 mg Documented by: Ropinirole HCl (Ropinirole Hcl 0.25 Mg Tab) 0.5 mg PO TID [facility] Last Admin: 12/05/21 15:56 Dose: 0.5 mg Documented by: Ticagrelor (Ticagrelor 90 Mg Tab) 90 mg PO BID [facility] Last Admin: 12/05/21 10:21 Dose: 90 mg Documented by: Past medical history to include: Stroke, diabetes, hypertension, left below-knee amputation, right heel wound Social history: [facility] [place], smoked 2 packs a day for 45 years up to 3 weeks ago. No alcohol. . 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 Conjunctiva normal. HEENT: External appearance of nose and ears normal, oral cavity grossly normal. NECK: JVD not raised; masses not palpable. HEART: First and second heart sounds are normal; no edema. LUNGS: Respiratory rate increased; decreased breath sounds ABDOMEN: Soft, nontender, liver spleen not palpable, no masses palpable. PSYCH: Alert and oriented x3; mood and affect anxious. MUSCULOSKELETAL:No Clubbing/cyanosis;muscles-grossly intact. Right heel wound NEUROLOGICAL: Cranial nerves grossly intact; no facial asymmetry, power and sensation grossly intact. INVESTIGATIONS, reviewed in the clinical context: December 04: Sodium 141 potassium 4.2 BUN 40 creatinine 1.7 to December 03: White count 14 hemoglobin 8.4 platelets 349 potassium 5.4 BUN 38 creati nine 2.02 procalcitonin 0.23 I 25. Transferrin 102. Ferritin 701. B12 475 White count 13.3 hemoglobin 8.3 platelets 336 potassium 4.6 BUN 33 creatinine 1.75 CRP 21.2 Troponin I 0.020, 0.017 COVID 19/influenza type A/influenza type B: Not detected EKG tracing personally reviewed by me-normal sinus rhythm. Chest x-ray film personally reviewed by me-underexposed. Patchy infiltrates Previous labs: Creatinine 1.6 on November 09 2-D echocardiogram: EF 60 have a 65% Assessment and plan: -Acute severe COPD exacerbation in a previous smoker: Improvement DuoNeb 4 times a day. Pulmicort nebulizer twice a day. Cut back prednisone to 30 mg daily from tomorrow. -Sepsis with blood cultures positive from November 30 with enterococcus faeecium/VRE Repeat blood cultures negative -Possible pneumonia suspected gram-negative organism/aspiration Continue IV Unasyn. -Right heel diabetic wound negative for osteomyelitis per MRI. Recent debridement. Culture positive for Acinetobacter, MRSA Continue Unasyn, IV daptomycin. Follow with ID -Acute on chronic hypoxic respiratory failure from COPD/pneumonia possible fluid overload BiPAP. Patient was discharged on 5 L oxygen. Currently down to 3 L. -Normocytic anemia/iron deficiency anemia IV Ferrlecit. -Chronic kidney disease stage III likely diabetic nephropathy and hypertensive nephrosclerosis Creatinine 1.68 on November 09 -Diabetes mellitus type 2, chronically on insulin: Uncontrolled with hyperglycemia secondary to steroids Received insulin drip. Levemir 30 units. 10 units with meals Humalog. Sliding scale. -Essential hypertension Coreg 12.5 mg twice a day hydralazine 100 mg 3 times a day -Diabetic peripheral neuropathy: Uncontrolled Neurontin 100 mg 3 times a day -Restless leg syndrome: Uncontrolled Requip 0.5 mg by mouth 3 times a day -Left below-knee amputation -Full code Patient is seen by pain management services. Started on Bartlett 10 every 6 when necessary. Rehab authorization was declined. Left a message with his insurance company to call me back. Discussed with case reviewer. Earlier discussed with the patient. Time spent today about 40 minutes with over 25 minutes of discussion.
[2021-12-05] MEDS: oxyCODONE-APAP 10-325MG 1 EACH TAB PO PRN ×2 (16:52→23:01)
[2021-12-05 20:29] LABS: Glucose,Whole Blood 419 mg/dL (75-99)
--- NOTE | 2021-12-05 20:46 | P.PN ---
Subjective Progress Note Date: 12/04/21 Principal diagnosis: Right heel diabetic foot infection and bacteremia Patient is a 61-year-old male with a recent diagnosis of right heel osteomyelitis on the basis of wound tracking down to the wound at the time of debridement culture were positive for Acinetobacter and MRSA, patient treated with Unasyn and daptomycin presenting back to the hospital with the acute r espiratory failure. On today's evaluation that is 12/04/2021, the patient is afebrile, the patient i s breathing comfortably on nasal cannula oxygen , the patient denies having any chest pain or cough no abdominal pain or any pain to the right heel area Objective - Vital Signs Vital signs: Vital Signs Temp 98.1 F 12/04/21 08:00 Pulse 85 12/04/21 08:00 Resp 18 12/04/21 12:02 BP 144/66 12/04/21 08:00 Pulse Ox 93 L 12/04/21 12:02 Intake & Output 12/03/21 12/04/21 12/04/21 18:59 06:59 18:59 Intake Total 900.200 372.580 154.930 Output Total 2150 350 Balance -1249.800 22.580 154.930 Weight 103.5 kg Intake: IV 100 10 10 Ampicillin-Sulbactam 3 gm 100 In Sodium Chloride 0.9% 100 ml @ 200 mls/hr IVPB Q8H [facility] Rx#:[id number] Invasive Line 2 10 10 Intake, IV Titration 20.200 62.580 24.930 Amount Insulin Regular 100 unit 20.200 62.580 24.930 In Sodium Chloride 0.9% 100 ml @ Titrate IV .Q0M [facility] Rx#:[id number] Oral 780 300 120 Output: Urine 2150 350 Other: Voiding Method Urinal Urinal - Exam GENERAL DESCRIPTION: Middle-age male lying in bed in no distress RESPIRATORY SYSTEM: Unlabored breathing , decreased breath sounds at bases HEART: S1 S2 regular rate and rhythm , ABDOMEN: Soft , no tenderness EXTREMITIES: Right heel wound is currently dressed no drainage on the dressings - Labs CBC & Chem 7: 12/03/21 07:21 12/04/21 10:23 Labs: Abnormal Lab Results - Last 24 Hours (Table) 12/03/21 12/03/21 12/03/21 Range/Units 16:25 17:34 18:01 BUN (9-20) mg/dL Creatinine (0.66-1.25) mg/dL Glucose (74-99) mg/dL POC Glucose (mg/dL) 450 H 355 H 347 H (75-99) mg/dL Calcium (8.4-10.2) mg/dL Total Protein (6.3-8.2) g/dL Albumin (3.5-5.0) g/dL 12/03/21 12/03/21 12/03/21 Range/Units 18:36 19:28 19:59 BUN (9-20) mg/dL Creatinine (0.66-1.25) mg/dL Glucose (74-99) mg/dL POC Glucose (mg/dL) 314 H 269 H 232 H (75-99) mg/dL Calcium (8.4-10.2) mg/dL Total Protein (6.3-8.2) g/dL Albumin (3.5-5.0) g/dL 12/03/21 12/04/21 12/04/21 Range/Units 22:06 00:03 02:09 BUN (9-20) mg/dL Creatinine (0.66-1.25) mg/dL Glucose (74-99) mg/dL POC Glucose (mg/dL) 194 H 169 H 163 H (75-99) mg/dL Calcium (8.4-10.2) mg/dL Total Protein (6.3-8.2) g/dL Albumin (3.5-5.0) g/dL 12/04/21 12/04/21 12/04/21 Range/Units 04:02 05:48 08:02 BUN (9-20) mg/dL Creatinine (0.66-1.25) mg/dL Glucose (74-99) mg/dL POC Glucose (mg/dL) 153 H 138 H 193 H (75-99) mg/dL Calcium (8.4-10.2) mg/dL Total Protein (6.3-8.2) g/dL Albumin (3.5-5.0) g/dL 12/04/21 12/04/21 12/04/21 Range/Units 09:33 10:23 11:39 BUN 40 H (9-20) mg/dL Creatinine 1.72 H (0.66-1.25) mg/dL Glucose 176 H (74-99) mg/dL POC Glucose (mg/dL) 203 H 203 H (75-99) mg/dL Calcium 8.0 L (8.4-10.2) mg/dL Total Protein 6.1 L (6.3-8.2) g/dL Albumin 2.8 L (3.5-5.0) g/dL 12/04/21 Range/Units 13:36 BUN (9-20) mg/dL Creatinine (0.66-1.25) mg/dL Glucose (74-99) mg/dL POC Glucose (mg/dL) 265 H (75-99) mg/dL Calcium (8.4-10.2) mg/dL Total Protein (6.3-8.2) g/dL Albumin (3.5-5.0) g/dL Microbiology - Last 24 Hours (Table) 11/30/21 23:16 Blood Culture Gram Stain - Final Blood Blood Culture - Final Enterococcus faecium VRE 11/30/21 23:31 Blood Culture - Preliminary Blood No Growth after 72 hours 12/02/21 16:45 Blood Culture - Preliminary Blood No Growth after 24 hours 12/02/21 15:21 Blood Culture - Preliminary Blood No Growth after 24 hours 12/02/21 15:45 Blood Culture - Preliminary Blood No Growth after 24 hours Assessment and Plan (1) Diabetic infection of right foot Current Visit: Yes Status: Acute Code(s): E11.628 - TYPE 2 DIABETES MELLITUS WITH OTHER SKIN COMPLICATIONS; L08.9 - LOCAL INFECTION OF THE SKIN AND SUBCUTANEOUS TISSUE, UNSP SNOMED Code(s): 15788900 Plan: 1patient with her right heel diabetic foot infection in this patient who is status post surgical debridement and culture positive for MRSA anaerobes and Acinetobacter the patient seem to have clinically responded as the patient right heel wound has decrease in size and does not look that deep with no surrounding redness and x-rays were negative for any osteomyelitis. 2patient with a positive blood culture with VRE concern for possible PICC related, however repeat blood culture has been negative 3patient to continue with Unasyn and daptomycin 6 mg/kg daily. 4local wound care to the right heel wound with the Medihoney followed by moist dressing keep the area of the pressure. Time with Patient: Less than 30
--- NOTE | 2021-12-05 20:47 | P.PN ---
Subjective Progress Note Date: 12/05/21 Principal diagnosis: Right heel diabetic foot infection and bacteremia Patient is a 61-year-old male with a recent diagnosis of right heel osteomyelitis on the basis of wound tracking down to the wound at the time of debridement culture were positive for Acinetobacter and MRSA, patient treated with Unasyn and daptomycin presenting back to the hospital with the acute r espiratory failure. On today's evaluation that is 12/05/2021, the patient denies any fever or chills , the patient is breathing comfortably on nasal cannula oxygen , the patient denies chest pain , the patient did have occasional dry cough no abdominal pain or any pain to the right heel area Objective - Vital Signs Vital signs: Vital Signs Temp 98.4 F 12/05/21 08:00 Pulse 74 12/05/21 12:29 Resp 18 12/05/21 08:00 BP 166/70 12/05/21 08:00 Pulse Ox 96 12/05/21 08:00 Intake & Output 12/04/21 12/05/21 12/05/21 18:59 06:59 18:59 Intake Total 747.240 160 Output Total 371 1125 Balance 376.240 -965 Intake: IV 110 10 Ampicillin-Sulbactam 3 gm 100 In Sodium Chloride 0.9% 100 ml @ 200 mls/hr IVPB Q8H [facility] Rx#:[id number] Invasive Line 2 10 10 Intake, IV Titration 40.240 150 Amount Ampicillin-Sulbactam 3 gm 100 In Sodium Chloride 0.9% 100 ml @ 200 mls/hr IVPB Q8H [facility] Rx#:[id number] DAPTOmycin 600 mg In 50 Sodium Chloride 0.9% 50 ml @ 100 mls/hr IVPB Q24H [facility] Rx#:[id number] Insulin Regular 100 unit 40.240 In Sodium Chloride 0.9% 100 ml @ Titrate IV .Q0M [facility] Rx#:[id number] Oral 597 Output: Urine 371 1125 Other: Voiding Method Urinal Urinal - Exam GENERAL DESCRIPTION: Middle-age male lying in bed in no distress RESPIRATORY SYSTEM: Unlabored breathing , decreased breath sounds at bases HEART: S1 S2 regular rate and rhythm , ABDOMEN: Soft , no tenderness EXTREMITIES: Right heel wound is currently dressed no drainage on the dressings - Labs CBC & Chem 7: 12/03/21 07:21 12/04/21 10:23 Labs: Abnormal Lab Results - Last 24 Hours (Table) 12/04/21 12/04/21 12/04/21 Range/Units 13:36 15:41 17:20 POC Glucose (mg/dL) 265 H 171 H 177 H (75-99) mg/dL 12/04/21 12/04/21 12/05/21 Range/Units 18:05 20:21 01:10 POC Glucose (mg/dL) 230 H 229 H 410 H (75-99) mg/dL 12/05/21 12/05/21 Range/Units 06:59 11:56 POC Glucose (mg/dL) 229 H 260 H (75-99) mg/dL Microbiology - Last 24 Hours (Table) 11/30/21 23:31 Blood Culture - Preliminary Blood No Growth after 96 hours 12/02/21 16:45 Blood Culture - Preliminary Blood No Growth after 48 hours 12/02/21 15:45 Blood Culture - Preliminary Blood No Growth after 48 hours 12/02/21 15:21 Blood Culture - Preliminary Blood No Growth after 48 hours 11/30/21 23:16 Blood Culture Gram Stain - Final Blood Blood Culture - Final Enterococcus faecium VRE Assessment and Plan (1) Diabetic infection of right foot Current Visit: Yes Status: Acute Code(s): E11.628 - TYPE 2 DIABETES MELLITUS WITH OTHER SKIN COMPLICATIONS; L08.9 - LOCAL INFECTION OF THE SKIN AND SUBCUTANEOUS TISSUE, UNSP SNOMED Code(s): 22571585 Plan: 1patient with her right heel diabetic foot infection in this patient who is st atus post surgical debridement and culture positive for MRSA anaerobes and Acinetobacter the patient seem to have clinically responded as the patient right heel wound has decrease in size and does not look that deep with no surrounding redness and x-rays were negative for any osteomyelitis. 2patient with a positive blood culture with VRE concern for possible PICC related, however repeat blood culture has been negative 3patient is currently being treated with Unasyn and daptomycin which will co ntinue to finish a 6 week course of therapy 4local wound care to the right heel wound with the Medihoney followed by moist dressing keep the area of the pressure. Time with Patient: Less than 30
[2021-12-05] MEDS: INSULIN DETEMIR (LEVEMIR) 100 UNIT/ML SYR SQ SCH (21:16)
[2021-12-06 04:36] LABS: Glucose,Whole Blood 197 mg/dL (75-99)
[2021-12-06] MEDS: oxyCODONE-APAP 10-325MG 1 EACH TAB PO PRN ×4 (04:44→21:25)
[2021-12-06] MEDS: AMPICILLIN-SULBACTAM 3 GM in SODIUM CHLORIDE 0.9% 100 ML IVPB SCH ×3 (05:11→17:47)
[2021-12-06 05:57] LABS: Basophils % (A) 0 %; Eosinophils # (A) 0.1 k/uL (0-0.7); Eosinophils % (A) 1 %; HCT 28.7 % (39.0-53.0); HGB 8.5 gm/dL (13.0-17.5); Hypochromasia Marked; Lymphocytes # (A) 1.1 k/uL (1.0-4.8); Lymphocytes % (A) 12 %; MCH 27.7 pg (25.0-35.0); MCHC 29.7 g/dL (31.0-37.0); MCV 93.3 fL (80.0-100.0); Mean Platelet Volume 7.3; Monocytes # (A) 0.6 k/uL (0-1.0); Monocytes % (A) 6 %; Neutrophils # (A) 7.9 k/uL (1.3-7.7); Neutrophils % (A) 80 %; Platelet Count 368 k/uL (150-450); RBC 3.08 m/uL (4.30-5.90); RDW 14.8 % (11.5-15.5); WBC 9.9 k/uL (3.8-10.6)
[2021-12-06 06:22] LABS: African American GFR (CKD) 51 (>60 ml/min/1.73 sqM); Anion Gap 6 mmol/L; Blood Urea Nitrogen 41 mg/dL (9-20); Calcium 7.8 mg/dL (8.4-10.2); Carbon Dioxide 31 mmol/L (22-30); Chloride 104 mmol/L (98-107); Glucose 169 mg/dL (74-99); Non-African American GFR(CKD) 44 (>60 ml/min/1.73 sqM); Potassium 4.6 mmol/L (3.5-5.1); Sodium 141 mmol/L (137-145)
[2021-12-06 07:07] LABS: Glucose,Whole Blood 225 mg/dL (75-99)
[2021-12-06] MEDS: ENOXAPARIN 40 MG/0.4 ML SYRINGE SQ SCH (08:25)
[2021-12-06] MEDS: INSULIN ASPART (NovoLOG) 100 UNIT/ML VIAL SQ SCH ×7 (08:25→21:26)
[2021-12-06] MEDS: carvediloL 12.5 MG TAB PO SCH ×2 (08:26→17:41)
[2021-12-06] MEDS: predniSONE 10 MG TAB PO SCH (08:26)
[2021-12-06] MEDS: hydrALAZINE HCL 50 MG TAB PO SCH ×3 (08:26→21:25)
[2021-12-06] MEDS: TICAGRELOR 90 MG TAB PO SCH ×2 (08:26→21:26)
[2021-12-06] MEDS: levETIRAcetam 500 MG TAB PO SCH ×2 (08:26→21:25)
[2021-12-06] MEDS: BUMETANIDE 1 MG TAB PO SCH ×2 (08:27→17:41)
[2021-12-06] MEDS: GABAPENTIN 100 MG CAP PO SCH ×3 (08:27→21:25)
[2021-12-06] MEDS: ACETAMINOPHEN TAB 500 MG TAB PO PRN ×2 (08:27→20:15)
[2021-12-06] MEDS: IPRATROPIUM-ALBUTEROL 3 ML NEB INHALATION SCH ×4 (08:52→20:06)
[2021-12-06] MEDS: BUDESONIDE 1 MG/2 ML NEBU INHALATION SCH ×2 (08:52→20:01)
[2021-12-06] MEDS: KETOCONAZOLE 2% SHAMPOO 1 APPLIC/ML TOPICAL SCH (10:21)
[2021-12-06 11:50] LABS: Glucose,Whole Blood 177 mg/dL (75-99)
--- NOTE | 2021-12-06 16:31 | P.PN ---
Subjective Progress Note Date: 12/06/21 Principal diagnosis: HISTORY OF PRESENT ILLNESS: This is a follow up for a 61 year old male admitted to [facility] on 11/30/2021 for complications of diabetes mellitus. He presents today with chronic & severe pain secondary to RLE ulcer for evaluation and ineffective pain management with Percocet 10/325mg q6h prn. Pt still states his pain level is 10/10 in intensity in his RLE. He would like stronger pain medication. MAPS last shows that pt was weaned down from Oxycodone 30mg TID (Jun 2021) to [place] 10/325mg since. Labs show pt has chronic kidney disease with elevated BUn/Cr. Pt states his pain is stinging, burning, constant and presents without provocation. Pain is relieved with medications, physical therapy, alternating heat & ice and repositioning. REVIEW OF ORGAN SYSTEMS: CONSTITUTIONAL: No fevers or chills. No recent weight loss. HEENT: No visual acuity loss, eye pain, difficulties with hearing. No nosebleeds. No difficulty swallowing. RESPIRATORY: Denies any troubles with breathing or dyspnea on exertion. CARDIOVASCULAR: Denies any chest pain, palpitations, or recent heart attacks. GASTROINTESTINAL: Denies fatty food intolerance. Has change in bowel habits and gas bloat. GENITOURINARY: Denies any blood in urine. Has increased urinary frequency. NEUROLOGICAL: +numbness and tingling along the distal extremities. No seizure disorders or headaches. MUSCULOSKELETAL: + back pain SKIN: No skin cancer. No rash. PSYCHIATRIC: Denies current depression or suicidal thoughts. ENDOCRINE: Denies current thyroid disorders. Denies any blood sugar glucose intolerance. HEME/LYMPHATIC: Denies any lumps and bumps around the neck. History of deep venous thrombosis. ALLERGY/IMMUNOLOGY: No immunoglobulin therapy. No immune deficiencies. BREAST: Denies current breast lumps, pain or nipple discharge. Physical Examinations : Constitutional : Cooperative , not in acute distress . On oxygen via nasal canula. HEENT: Neck supple. No Lymphadenopathy. Normal thyroid size . Eyes no ptosis , no icterus, no photophobia . Hearing intact. Normal oropharynx. No Thrush. Respiratory : Chest clear to auscultations bilaterally. No wheezing. No rhonchi. Cardiovascular : Regular rate and rhythm , S1 / S2. No S3 . No S4. Gastrointestinal : Abdomen soft. No tenderness. Bowel sounds x 4. No organomegaly . Genitourinary : Deferred. Neurologic : Cranial nerve II to XII intact. No focal neurological deficits. Psychiatric : alert & oriented x 3. Matching mood & appropriate affect. Judgment & insight intact. Lymphatic No Lymphadenopathy. Musculoskeletal : Cervical Spine Motor strength in the deltoid and biceps: Normal right side. Normal Left side Motor strength biceps and the wrist extensors: Normal right side . Normal left side Motor strength in the triceps muscle: Normal right side. Normal left side Deep tendon reflexes: Normal at the biceps. Normal at Brachioradialis. Normal at triceps Cervical facet loading test: positive bilaterally Spurling test: positive bilaterally Neck distraction test: positive bilaterally Giancarlo sign: positive bilaterally Lumbar spine Motor strength lower extremities ,thigh and legs 5/5 Right side , 5/5 Left side Deep tendon reflexes : Normal Knee Jerk. Normal Ankle Jerk Vertebral body tenderness over Lumbar facet Loading Test: positive Right / positive Left Range of motion of the lumbar spine Flexion 30 degrees, extension 10 degrees Straight Leg Raise test: Left/ Right p ositive at degree Sloane test: positive right / positive left. Severe tenderness over the Sacroiliac joint on the Right / Left sides Gaenslen test: positive bilaterally Seated flexion test: positive bilaterally. Extremities LLE AKA RLE BKA with 2cm ulceration, surrounding erythema, dressing intact Assessment/ Plan : RLE diabetic foot ulcer Recommendation to increase frequency of Percocet 10/325mg to q4h prn pain. Pt is to be transitioned to rehab. MAPS reviewed and consistent All questions answered. I have spent greater than 50 minutes on patient care today. Dr Loomis was available by phone for the evaluation of this patient. The time was used to review the medical records including relevant urine studies and Prescription history (MAPs), review of the available imaging, evaluation and examination of the patient, coordination of care with the medical staff and if applicable referring physicians, as well as creation of the medical record Objective - Vital Signs Vital signs: Vital Signs Temp 98.6 F 12/06/21 14:00 Pulse 86 12/06/21 14:00 Resp 18 12/06/21 14:00 BP 160/67 12/06/21 14:00 Pulse Ox 95 12/06/21 14:00 Intake & Output 12/05/21 12/06/21 12/06/21 18:59 06:59 18:59 Output Total 1800 300 Balance -1800 -300 Output: Urine 1800 300 Other: Voiding Method Urinal # Voids 1 # Bowel Movements 0 - Labs CBC & Chem 7: 12/06/21 05:04 12/06/21 05:04 Labs: Abnormal Lab Results - Last 24 Hours (Table) 12/05/21 12/05/21 12/06/21 Range/Units 16:49 20:25 04:35 RBC (4.30-5.90) m/uL Hgb (13.0-17.5) gm/dL Hct (39.0-53.0) % MCHC (31.0-37.0) g/dL Neutrophils # (1.3-7.7) k/uL Carbon Dioxide (22-30) mmol/L BUN (9-20) mg/dL Creatinine (0.66-1.25) mg/dL Glucose (74-99) mg/dL POC Glucose (mg/dL) 371 H 419 H 197 H (75-99) mg/dL Calcium (8.4-10.2) mg/dL 12/06/21 12/06/21 12/06/21 Range/Units 05:04 05:04 07:05 RBC 3.08 L (4.30-5.90) m/uL Hgb 8.5 L (13.0-17.5) gm/dL Hct 28.7 L (39.0-53.0) % MCHC 29.7 L (31.0-37.0) g/dL Neutrophils # 7.9 H (1.3-7.7) k/uL Carbon Dioxide 31 H (22-30) mmol/L BUN 41 H (9-20) mg/dL Creatinine 1.65 H (0.66-1.25) mg/dL Glucose 169 H (74-99) mg/dL POC Glucose (mg/dL) 225 H (75-99) mg/dL Calcium 7.8 L (8.4-10.2) mg/dL 12/06/21 Range/Units 11:49 RBC (4.30-5.90) m/uL Hgb (13.0-17.5) gm/dL Hct (39.0-53.0) % MCHC (31.0-37.0) g/dL Neutrophils # (1.3-7.7) k/uL Carbon Dioxide (22-30) mmol/L BUN (9-20) mg/dL Creatinine (0.66-1.25) mg/dL Glucose (74-99) mg/dL POC Glucose (mg/dL) 177 H (75-99) mg/dL Calcium (8.4-10.2) mg/dL Microbiology - Last 24 Hours (Table) 11/30/21 23:31 Blood Culture - Preliminary Blood No Growth after 120 hours 12/02/21 16:45 Blood Culture - Preliminary Blood No Growth after 72 hours 12/02/21 15:45 Blood Culture - Preliminary Blood No Growth after 72 hours 12/02/21 15:21 Blood Culture - Preliminary Blood No Growth after 72 hours PQRS Measure Charge Sheet - Pain Location Generalized Non-Pharmacological Interventions: Darkened Room, Distraction, Elevation Pharmacological Interventions: PRN Medication Pain Comment: see mar PQRS Narrative: Blood Pressure [Left Arm] 160/67 Blood Pressure 122/60 Pain Intensity [Generalized] 9 Pain Intensity [None] 0 Pain Intensity 8 Pain Scale Used Numeric (1 - 10) Scale Used Numeric (1 - 10) Home Medications: Ambulatory Orders Carvedilol [Coreg] 12.5 mg PO BID-W/MEALS 11/09/21 Ketoconazole 2% Shampoo [Nizoral] 1 applic TOPICAL DIRECTED 11/09/21 Ticagrelor [Brilinta] 90 mg PO BID 11/09/21 levETIRAcetam [Keppra] 1,000 mg PO BID 11/09/21 Ampicillin-Sulbactam [Unasyn] 3 gm IVPB Q6HR 27 Days #108 each 11/30/21 Bumetanide [BUMEX] 1 mg PO BID 30 Days #60 tablet 11/30/21 DAPTOmycin [Daptomycin] 500 mg IV DAILY 27 Days #27 each 11/30/21 Tamsulosin [Flomax] 0.4 mg PO PC-BRKFST #30 11/30/21 hydrALAZINE HCL [Apresoline] 100 mg PO TID 30 Days #90 tab 11/30/21 Acetaminophen Tab [Tylenol] 1,000 mg PO Q6HR PRN tab 12/05/21 Budesonide [Pulmicort] 1 mg INHALATION RT-BID ml 12/05/21 Gabapentin [Neurontin] 100 mg PO TID 30 Days #9 cap 12/05/21 Insulin Detemir (Levemir) [Levemir] 34 unit SQ HS 30 Days #6 ml 12/05/21 Insulin Lispro [humaLOG Kwikpen] 10 units SQ AC-TID 30 Days #6 ml 12/05/21 Ipratropium-Albuterol Nebulize [Duoneb 0.5 mg-3 mg/3 ml Soln] 3 ml INHALATION TID ml 12/05/21 predniSONE 0 mg PO DIRECTED #12 tab 12/05/21 rOPINIRole HCL [Requip] 0.5 mg PO TID #9 tab 12/05/21
[2021-12-06 16:55] LABS: Glucose,Whole Blood 207 mg/dL (75-99)
--- NOTE | 2021-12-06 20:45 | P.PN ---
Progress Note - Text Progress Note Date: 12/06/21 Chief Complaint: Shortness of breath This is a 61-year-old patient, now following with Dr. Smalls and cresc[facility]io of [place] on. Patient was previously living in [place] then it moved to [place] for to 3 months. When patient came back and got admitted here because the daughter lives in town. Chronic stable medical conditions include diabetes, hypertension, left below- knee amputation. Patient was recently admitted to the hospital on 11/09/2021 with a right foot nonhealing ulcer. Had been a smoker up to recently. Wound on right heel, wound cultures were positive for Acinetobacter and MRSA. MRI was negative for osteomyelitis. Patient was discharged and IV Unasyn and daptomycin. Patient was discharged on ER and BiPAP. He had desaturated there and he was transferred as patient became short of breath. And was readmitted. Plan was patient received few weeks of antibiotics. Patient admitted with shortness of breath. Some cough. No sputum. No fever no chills. Some wheezing. Did feel a bit better with bronchodilators. Steroids. Admitted with acute COPD exacerbation, pneumonia, right heel wound. IV Unasyn daptomycin continued. Bronchodilators. Steroids. December 1: Breathing a bit better. Oral intake good. Some pain in the right heel. Being followed by ID and primary. Had a BM. December 2: Breathing better. Had a very lengthy discussion with the patient about his narcotic. And phantom pain. Pros and cause of increasing narcotics was discussed. Will increase Neurontin to 100 mg 3 times a day. Oral intake fair. Potassium increased we'll order Lokelma. And renal diet December 3: Complaining of significant pain in the right foot. Though it's a chronic issue. Pain management consulted. Neurontin was increased yesterday. Patient also complaining of restless leg. Requip 0.5 mg 3 times a day started. Care discussed length with the patient. Patient on insulin drip from yesterday because of uncontrolled Accu-Cheks. Prednisone cutback. December 05: Eating well. Patient was seen by pain management services. Put on [place] 10 every 6 when necessary. Authorization was declined by patient's insurance company. I left my number at the insurance company to call me back. Spoke earlier with a trimming caser. Breathing stable. December 06: This morning I got a call from [facility] physician. As the patient was not participating in PT OT. They wanted another request for authorization with updated PTOT notes. Discussed with the patient. Also with trimming caser. Pain management following the patient. [place] 10 changed to every 4 by them. Oral intake good. Active Medications Acetaminophen (Acetaminophen Tab 500 Mg Tab) 1,000 mg PO Q6HR PRN PRN Reason: Fever and/ or Pain Last Admin: 12/06/21 20:15 Dose: 1,000 mg Documented by: Albuterol/Ipratropium (Ipratropium-Albuterol 3 Ml Neb) 3 ml INHALATION RT-QID [facility] Last Admin: 12/06/21 20:06 Dose: Not Given Documented by: Budesonide (Budesonide 1 Mg/2 Ml Nebu) 1 mg INHALATION RT-BID [facility] Last Admin: 12/06/21 20:01 Dose: Not Given Documented by: Bumetanide (Bumetanide 1 Mg Tab) 1 mg PO BID@0900,1600 [facility] Last Admin: 12/06/21 17:41 Dose: 1 mg Documented by: Carvedilol (Carvedilol 12.5 Mg Tab) 12.5 mg PO BID-W/MEALS [facility] Last Admin: 12/06/21 17:41 Dose: 12.5 mg Documented by: Enoxaparin Sodium (Enoxaparin 40 Mg/0.4 Ml Syringe) 40 mg SQ DAILY [facility] Last Admin: 12/06/21 08:25 Dose: 40 mg Documented by: Gabapentin (Gabapentin 100 Mg Cap) 100 mg PO TID [facility] Last Admin: 12/06/21 17:41 Dose: 100 mg Documented by: Hydralazine HCl (Hydralazine Hcl 50 Mg Tab) 100 mg PO TID [facility] Last Admin: 12/06/21 17:39 Dose: 100 mg Documented by: Daptomycin 600 mg/ Sodium (Chloride) 50 mls @ 100 mls/hr IVPB Q24H [facility]; Protocol Last Admin: 12/06/21 01:54 Dose: 100 mls/hr Documented by: Ampicillin Sodium/Sulbactam (Sodium 3 gm/ Sodium Chloride) 100 mls @ 200 mls/hr IVPB Q6HR [facility]; Protocol Last Admin: 12/06/21 17:47 Dose: 200 mls/hr Documented by: Insulin Aspart (Insulin Aspart (Novolog) 100 Unit/Ml Vial) 10 unit SQ AC-TID S Last Admin: 12/06/21 17:41 Dose: 10 unit Documented by: Insulin Aspart (Insulin Aspart (Novolog) 100 Unit/Ml Vial) 0 unit SQ ACHS [facility]; Protocol Last Admin: 12/06/21 17:42 Dose: 4 unit Documented by: Insulin Detemir (Insulin Detemir (Levemir) 100 Unit/Ml Syr) 30 unit SQ HS [facility] Last Admin: 12/05/21 21:16 Dose: 30 unit Documented by: Ketoconazole (Ketoconazole 2% Shampoo 1 Applic/Ml) 1 applic TOPICAL MoTh [facility] Last Admin: 12/06/21 10:21 Dose: Not Given Documented by: Levetiracetam (Levetiracetam 500 Mg Tab) 1,000 mg PO BID [facility] Last Admin: 12/06/21 08:26 Dose: 1,000 mg Documented by: Lorazepam (Lorazepam 0.5 Mg Tab) 0.5 mg PO Q8HR PRN PRN Reason: Agitation or Acute Anxiety Last Admin: 12/04/21 23:01 Dose: 0.5 mg Documented by: Oxycodone/Acetaminophen (Oxycodone-Apap 10-325mg 1 Each Tab) 1 each PO Q4HR PRN PRN Reason: Pain Stop: 12/10/21 23:59 Last Admin: 12/06/21 17:04 Dose: 1 each Documented by: Prednisone (Prednisone 10 Mg Tab) 30 mg PO DAILY [facility] Last Admin: 12/06/21 08:26 Dose: 30 mg Documented by: Ropinirole HCl (Ropinirole Hcl 0.25 Mg Tab) 0.5 mg PO TID [facility] Last Admin: 12/06/21 17:40 Dose: 0.5 mg Documented by: Ticagrelor (Ticagrelor 90 Mg Tab) 90 mg PO BID [facility] Last Admin: 12/06/21 08:26 Dose: 90 mg Documented by: Past medical history to include: Stroke, diabetes, hypertension, left below-knee amputation, right heel wound Social history: [facility], smoked 2 packs a day for 45 years up to 3 weeks ago. No alcohol. . 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 Conjunctiva normal. HEENT: External appearance of nose and ears normal, oral cavity grossly normal. NECK: JVD not raised; masses not palpable. HEART: First and second heart sounds are normal; no edema. LUNGS: Respiratory rate increased; decreased breath sounds ABDOMEN: Soft, nontender, liver spleen not palpable, no masses palpable. PSYCH: Alert and oriented x3; mood and affect anxious. MUSCULOSKELETAL:No Clubbing/cyanosis;muscles-grossly intact. Right heel wound NEUROLOGICAL: Cranial nerves grossly intact; no facial asymmetry, power and sensation grossly intact. INVESTIGATIONS, reviewed in the clinical context: December 06: White count 9.9 hemoglobin 8.5 potassium 4.6 BUN 41 and creatinine 1.65 December 04: Sodium 141 potassium 4.2 BUN 40 creatinine 1.7 to December 03: White count 14 hemoglobin 8.4 platelets 349 potassium 5.4 BUN 38 creatinine 2.02 procalcitonin 0.23 I 25. Transferrin 102. Ferritin 701. B12 475 White count 13.3 hemoglobin 8.3 platelets 336 potassium 4.6 BUN 33 creatinine 1.75 CRP 21.2 Troponin I 0.020, 0.017 COVID 19/influenza type A/influenza type B: Not detected EKG tracing personally reviewed by me-normal sinus rhythm. Chest x-ray film personally reviewed by me-underexposed. Patchy infiltrates Previous labs: Creatinine 1.6 on November 09 2-D echocardiogram: EF 60 have a 65% Assessment and plan: -Acute severe COPD exacerbation in a previous smoker: Improvement DuoNeb 4 times a day. Pulmicort nebulizer twice a day. Cut back prednisone to 20 mg daily from tomorrow. -Sepsis with blood cultures positive from November 30 with enterococcus faeecium/VRE Repeat blood cultures negative -Possible pneumonia suspected gram-negative organism/aspiration: Improved -Right heel diabetic wound negative for osteomyelitis per MRI. Recent debridement. Culture positive for Acinetobacter, MRSA Continue Unasyn, IV daptomycin. Follow with ID -Acute on chronic hypoxic respiratory failure from COPD/pneumonia possible fluid overload BiPAP. Patient was discharged on 5 L oxygen. -Normocytic anemia/iron deficiency anemia IV Ferrlecit. -Chronic kidney disease stage III likely diabetic nephropathy and hypertensive nephrosclerosis Creatinine 1.68 on November 09 -Diabetes mellitus type 2, chronically on insulin: Uncontrolled with hyperglycemia secondary to steroids Received insulin drip. Levemir 34 units. 10 units with meals Humalog. Sliding scale. -Essential hypertension Coreg 12.5 mg twice a day hydralazine 100 mg 3 times a day -Diabetic peripheral neuropathy: Uncontrolled Neurontin 100 mg 3 times a day -Restless leg syndrome: Uncontrolled Requip 0.5 mg by mouth 3 times a day -Left below-knee amputation -Full code Spoke with physician/peer review.. Late I was called by the trimming caser that rehab was declined. Pain management team changed to [place] to every 4 when necessary. Cut back prednisone to 20 mg. Discussed with patient. Total time spent today about 45 minutes with over 30 minutes of discussion.
[2021-12-06 21:02] LABS: Glucose,Whole Blood 294 mg/dL (75-99)
[2021-12-06] MEDS: INSULIN DETEMIR (LEVEMIR) 100 UNIT/ML SYR SQ SCH (21:26)
--- NOTE | 2021-12-06 22:01 | P.PN ---
Subjective Progress Note Date: 12/06/21 Principal diagnosis: Right heel diabetic foot infection and bacteremia Patient is a 61-year-old male with a recent diagnosis of right heel osteomyelitis on the basis of wound tracking down to the wound at the time of debridement culture were positive for Acinetobacter and MRSA, patient treated with Unasyn and daptomycin presenting back to the hospital with the acute r espiratory failure. On today's evaluation that is 12/06/2021, the patient remains to be afebrile, th e patient is breathing comfortably on nasal cannula oxygen , the patient denies chest pain , the patient did have occasional cough with occasional sputum production no hemoptysis. Denies any abdominal pain no diarrhea or any worsening pain to the right heel area Objective - Vital Signs Vital signs: Vital Signs Temp 98.3 F 12/06/21 08:00 Pulse 80 12/06/21 12:07 Resp 16 12/06/21 08:00 BP 164/74 12/06/21 08:00 Pulse Ox 98 12/06/21 08:00 Intake & Output 12/05/21 12/06/21 12/06/21 18:59 06:59 18:59 Output Total 1800 300 Balance -1800 -300 Output: Urine 1800 300 Other: Voiding Method Urinal # Voids 1 # Bowel Movements 0 - Exam GENERAL DESCRIPTION: Middle-age male lying in bed in no distress RESPIRATORY SYSTEM: Unlabored breathing , decreased breath sounds at bases HEART: S1 S2 regular rate and rhythm , ABDOMEN: Soft , no tenderness EXTREMITIES: Right heel wound is currently dressed no drainage on the dressings - Labs CBC & Chem 7: 12/06/21 05:04 12/06/21 05:04 Labs: Abnormal Lab Results - Last 24 Hours (Table) 12/05/21 12/05/21 12/06/21 Range/Units 16:49 20:25 04:35 RBC (4.30-5.90) m/uL Hgb (13.0-17.5) gm/dL Hct (39.0-53.0) % MCHC (31.0-37.0) g/dL Neutrophils # (1.3-7.7) k/uL Carbon Dioxide (22-30) mmol/L BUN (9-20) mg/dL Creatinine (0.66-1.25) mg/dL Glucose (74-99) mg/dL POC Glucose (mg/dL) 371 H 419 H 197 H (75-99) mg/dL Calcium (8.4-10.2) mg/dL 12/06/21 12/06/21 12/06/21 Range/Units 05:04 05:04 07:05 RBC 3.08 L (4.30-5.90) m/uL Hgb 8.5 L (13.0-17.5) gm/dL Hct 28.7 L (39.0-53.0) % MCHC 29.7 L (31.0-37.0) g/dL Neutrophils # 7.9 H (1.3-7.7) k/uL Carbon Dioxide 31 H (22-30) mmol/L BUN 41 H (9-20) mg/dL Creatinine 1.65 H (0.66-1.25) mg/dL Glucose 169 H (74-99) mg/dL POC Glucose (mg/dL) 225 H (75-99) mg/dL Calcium 7.8 L (8.4-10.2) mg/dL 12/06/21 Range/Units 11:49 RBC (4.30-5.90) m/uL Hgb (13.0-17.5) gm/dL Hct (39.0-53.0) % MCHC (31.0-37.0) g/dL Neutrophils # (1.3-7.7) k/uL Carbon Dioxide (22-30) mmol/L BUN (9-20) mg/dL Creatinine (0.66-1.25) mg/dL Glucose (74-99) mg/dL POC Glucose (mg/dL) 177 H (75-99) mg/dL Calcium (8.4-10.2) mg/dL Microbiology - Last 24 Hours (Table) 11/30/21 23:31 Blood Culture - Preliminary Blood No Growth after 120 hours 12/02/21 16:45 Blood Culture - Preliminary Blood No Growth after 72 hours 12/02/21 15:45 Blood Culture - Preliminary Blood No Growth after 72 hours 12/02/21 15:21 Blood Culture - Preliminary Blood No Growth after 72 hours Assessment and Plan (1) Diabetic infection of right foot Current Visit: Yes Status: Acute Code(s): E11.628 - TYPE 2 DIABETES MELLITUS WITH OTHER SKIN COMPLICATIONS; L08.9 - LOCAL INFECTION OF THE SKIN AND SUBCUTANEOUS TISSUE, UNSP SNOMED Code(s): 31104832 Plan: 1patient with her right heel diabetic foot infection in this patient who is status post surgical debridement and culture positive for MRSA anaerobes and Acinetobacter the patient seem to have clinically responded as the patient right heel wound has decrease in size and does not look that deep with no surrounding redness and x-rays were negative for any osteomyelitis. 2patient with a positive blood culture with VRE concern for possible PICC related, however repeat blood culture has been negative 3patient continue with Unasyn and daptomycin to finish a 6 week course of therapy 4local wound care to the right heel wound with the Medihoney followed by moist dressing keep the area of the pressure. Time with Patient: Less than 30
[2021-12-07] MEDS: oxyCODONE-APAP 10-325MG 1 EACH TAB PO PRN ×6 (00:50→20:47)
[2021-12-07] MEDS: AMPICILLIN-SULBACTAM 3 GM in SODIUM CHLORIDE 0.9% 100 ML IVPB SCH ×4 (00:51→17:09)
[2021-12-07 07:02] LABS: Glucose,Whole Blood 275 mg/dL (75-99)
[2021-12-07] MEDS: ENOXAPARIN 40 MG/0.4 ML SYRINGE SQ SCH (08:16)
[2021-12-07] MEDS: INSULIN ASPART (NovoLOG) 100 UNIT/ML VIAL SQ SCH ×7 (08:16→20:46)
[2021-12-07] MEDS: predniSONE 20 MG TAB PO SCH (08:16)
[2021-12-07] MEDS: hydrALAZINE HCL 50 MG TAB PO SCH ×3 (08:17→20:48)
[2021-12-07] MEDS: GABAPENTIN 100 MG CAP PO SCH ×3 (08:17→20:47)
[2021-12-07] MEDS: carvediloL 12.5 MG TAB PO SCH ×2 (08:17→17:09)
[2021-12-07] MEDS: BUMETANIDE 1 MG TAB PO SCH ×2 (08:18→15:21)
[2021-12-07] MEDS: TICAGRELOR 90 MG TAB PO SCH ×2 (08:19→20:47)
[2021-12-07] MEDS: IPRATROPIUM-ALBUTEROL 3 ML NEB INHALATION SCH ×4 (08:20→20:42)
[2021-12-07] MEDS: BUDESONIDE 1 MG/2 ML NEBU INHALATION SCH ×2 (08:20→20:42)
[2021-12-07] MEDS: levETIRAcetam 500 MG TAB PO SCH ×2 (08:56→20:47)
[2021-12-07] MEDS: ACETAMINOPHEN TAB 500 MG TAB PO PRN (09:00)
[2021-12-07 11:17] LABS: Glucose,Whole Blood 246 mg/dL (75-99)
--- NOTE | 2021-12-07 16:02 | P.PN ---
Subjective Progress Note Date: 12/07/21 Principal diagnosis: Right heel diabetic foot infection and bacteremia Patient is a 61-year-old male with a recent diagnosis of right heel osteomyelitis on the basis of wound tracking down to the wound at the time of debridement culture were positive for Acinetobacter and MRSA, patient treated with Unasyn and daptomycin presenting back to the hospital with the acute r espiratory failure. On today's evaluation that is 12/07/2021, the patient denies any fever or any ch ills, the patient is breathing comfortably on nasal cannula oxygen , the patient denies chest pain , the patient did have occasional cough but not bringing up any sputum today, the patient denies any abdominal pain no diarrhea or any worsening pain to the right heel area Objective - Vital Signs Vital signs: Vital Signs Temp 98.8 F 12/07/21 08:00 Pulse 88 12/07/21 08:30 Resp 18 12/07/21 08:30 BP 141/64 12/07/21 08:00 Pulse Ox 95 12/07/21 08:16 Intake & Output 12/06/21 12/07/21 12/07/21 18:59 06:59 18:59 Intake Total 575 222 Output Total 800 Balance 575 -578 Intake: Intake, IV Titration 100 Amount Ampicillin-Sulbactam 3 gm 100 In Sodium Chloride 0.9% 100 ml @ 200 mls/hr IVPB Q8H [facility] Rx#:[id number] Oral 475 222 Output: Urine 800 Other: Voiding Method Urinal Urinal Urinal # Voids 4 2 # Bowel Movements 0 - Exam GENERAL DESCRIPTION: Middle-age male lying in bed in no distress RESPIRATORY SYSTEM: Unlabored breathing , decreased breath sounds at bases HEART: S1 S2 regular rate and rhythm , ABDOMEN: Soft , no tenderness EXTREMITIES: Right heel wound is currently dressed no drainage on the dressings - Labs CBC & Chem 7: 12/06/21 05:04 12/06/21 05:04 Labs: Abnormal Lab Results - Last 24 Hours (Table) 12/06/21 12/06/21 12/07/21 Range/Units 16:50 20:57 07:01 POC Glucose (mg/dL) 207 H 294 H 275 H (75-99) mg/dL 12/07/21 Range/Units 11:16 POC Glucose (mg/dL) 246 H (75-99) mg/dL Microbiology - Last 24 Hours (Table) 11/30/21 23:31 Blood Culture - Final Blood No Growth after 144 hours 12/02/21 16:45 Blood Culture - Preliminary Blood No Growth after 96 hours 12/02/21 15:21 Blood Culture - Preliminary Blood No Growth after 96 hours 12/02/21 15:45 Blood Culture - Preliminary Blood No Growth after 96 hours Assessment and Plan (1) Diabetic infection of right foot Current Visit: Yes Status: Acute Code(s): E11.628 - TYPE 2 DIABETES MELLITUS WITH OTHER SKIN COMPLICATIONS; L08.9 - LOCAL INFECTION OF THE SKIN AND SUBCUTANEOUS TISSUE, UNSP SNOMED Code(s): 03124861 Plan: 1patient with her right heel diabetic foot infection in this patient who is status post surgical debridement and culture positive for MRSA anaerobes and Acinetobacter the patient seem to have clinically responded as the patient right heel wound has decrease in size and does not look that deep with no surrounding redness and x-rays were negative for any osteomyelitis. 2patient with a positive blood culture with VRE concern for possible PICC related, however repeat blood culture has been negative 3patient seemed to showing overall clinical improvement and the patient will continue with Unasyn and daptomycin to finish a 6 week course of therapy and close outpatient follow-up 4local wound care to the right heel wound with the [place] followed by moist dressing keep the area of the pressure. Time with Patient: Less than 30
[2021-12-07 17:04] LABS: Glucose,Whole Blood 261 mg/dL (75-99)
--- NOTE | 2021-12-07 18:54 | P.PN ---
Progress Note - Text Progress Note Date: 12/07/21 Chief Complaint: Shortness of breath This is a 61-year-old patient, now following with Dr. Smalls and [facility] of [place] on. Patient was previously living in [place] then it moved to [place] for to 3 months. When patient came back and got admitted here because the daughter lives in town. Chronic stable medical conditions include diabetes, hypertension, left below- knee amputation. Patient was recently admitted to the hospital on 11/09/2021 with a right foot nonhealing ulcer. Had been a smoker up to recently. Wound on right heel, wound cultures were positive for Acinetobacter and MRSA. MRI was negative for osteomyelitis. Patient was discharged and IV Unasyn and daptomycin. Patient was discharged on ER and BiPAP. He had desaturated there and he was transferred as patient became short of breath. And was readmitted. Plan was patient received few weeks of antibiotics. Patient admitted with shortness of breath. Some cough. No sputum. No fever no chills. Some wheezing. Did feel a bit better with bronchodilators. Steroids. Admitted with acute COPD exacerbation, pneumonia, right heel wound. IV Unasyn daptomycin continued. Bronchodilators. Steroids. December 1: Breathing a bit better. Oral intake good. Some pain in the right heel. Being followed by ID and primary. Had a BM. December 2: Breathing better. Had a very lengthy discussion with the patient about his narcotic. And phantom pain. Pros and cause of increasing narcotics was discussed. Will increase Neurontin to 100 mg 3 times a day. Oral intake fair. Potassium increased we'll order Lokelma. And renal diet December 3: Complaining of significant pain in the right foot. Though it's a chronic issue. Pain management consulted. Neurontin was increased yesterday. Patient also complaining of restless leg. Requip 0.5 mg 3 times a day started. Care discussed length with the patient. Patient on insulin drip from yesterday because of uncontrolled Accu-Cheks. Prednisone cutback. December 05: Eating well. Patient was seen by pain management services. Put on [place] 10 every 6 when necessary. Authorization was declined by patient's insurance company. I left my number at the insurance company to call me back. Spoke earlier with a binder caser. Breathing stable. December 06: This morning I got a call from [facility] physician. As the patient was not participating in PT OT. They wanted another request for authorization with updated PTOT notes. Discussed with the patient. Also with binder caser. Pain management following the patient. [place] 10 changed to every 4 by them. Oral intake good. December 07: Communicate it several times with the director of social work about discharge. Isaias elvisbairon have made an application again for patient to go to rehab. Meantime patient worked with PT OT. Oral intake good. Active Medications Acetaminophen (Acetaminophen Tab 500 Mg Tab) 1,000 mg PO Q6HR PRN PRN Reason: Fever and/ or Pain Last Admin: 12/07/21 09:00 Dose: 1,000 mg Documented by: Albuterol/Ipratropium (Ipratropium-Albuterol 3 Ml Neb) 3 ml INHALATION RT-QID [facility] Last Admin: 12/07/21 15:01 Dose: Not Given Documented by: Budesonide (Budesonide 1 Mg/2 Ml Nebu) 1 mg INHALATION RT-BID [facility] Last Admin: 12/07/21 08:20 Dose: 1 mg Documented by: Bumetanide (Bumetanide 1 Mg Tab) 1 mg PO BID@0900,1600 [facility] Last Admin: 12/07/21 15:21 Dose: 1 mg Documented by: Carvedilol (Carvedilol 12.5 Mg Tab) 12.5 mg PO BID-W/MEALS [facility] Last Admin: 12/07/21 17:09 Dose: 12.5 mg Documented by: Enoxaparin Sodium (Enoxaparin 40 Mg/0.4 Ml Syringe) 40 mg SQ DAILY [facility] Last Admin: 12/07/21 08:16 Dose: 40 mg Documented by: Gabapentin (Gabapentin 100 Mg Cap) 100 mg PO TID [facility] Last Admin: 12/07/21 15:22 Dose: 100 mg Documented by: Hydralazine HCl (Hydralazine Hcl 50 Mg Tab) 100 mg PO TID [facility] Last Admin: 12/07/21 15:21 Dose: 100 mg Documented by: Daptomycin 600 mg/ Sodium (Chloride) 50 mls @ 100 mls/hr IVPB Q24H [facility]; Protocol Last Admin: 12/07/21 03:23 Dose: 100 mls/hr Documented by: Ampicillin Sodium/Sulbactam (Sodium 3 gm/ Sodium Chloride) 100 mls @ 200 mls/hr IVPB Q6HR [facility]; Protocol Last Admin: 12/07/21 17:09 Dose: 200 mls/hr Documented by: Insulin Aspart (Insulin Aspart (Novolog) 100 Unit/Ml Vial) 10 unit SQ AC-TID [facility] Last Admin: 12/07/21 17:09 Dose: 10 unit Documented by: Insulin Aspart (Insulin Aspart (Novolog) 100 Unit/Ml Vial) 0 unit SQ ACHS [facility]; Protocol Last Admin: 12/07/21 17:09 Dose: 5 unit Documented by: Insulin Detemir (Insulin Detemir (Levemir) 100 Unit/Ml Syr) 30 unit SQ HS [facility] Last Admin: 12/06/21 21:26 Dose: 30 unit Documented by: Ketoconazole (Ketoconazole 2% Shampoo 1 Applic/Ml) 1 applic TOPICAL MoTh [facility] Last Admin: 12/06/21 10:21 Dose: Not Given Documented by: Levetiracetam (Levetiracetam 500 Mg Tab) 1,000 mg PO BID [facility] Last Admin: 12/07/21 08:56 Dose: 1,000 mg Documented by: Lorazepam (Lorazepam 0.5 Mg Tab) 0.5 mg PO Q8HR PRN PRN Reason: Agitation or Acute Anxiety Last Admin: 12/04/21 23:01 Dose: 0.5 mg Documented by: Oxycodone/Acetaminophen (Oxycodone-Apap 10-325mg 1 Each Tab) 1 each PO Q4HR PRN PRN Reason: Pain Stop: 12/10/21 23:59 Last Admin: 12/07/21 16:36 Dose: 1 each Documented by: Prednisone (Prednisone 20 Mg Tab) 20 mg PO DAILY [facility] Last Admin: 12/07/21 08:16 Dose: 20 mg Documented by: Ropinirole HCl (Ropinirole Hcl 0.25 Mg Tab) 0.5 mg PO TID [facility] Last Admin: 12/07/21 15:22 Dose: 0.5 mg Documented by: Ticagrelor (Ticagrelor 90 Mg Tab) 90 mg PO BID [facility] Last Admin: 12/07/21 08:19 Dose: 90 mg Documented by: Past medical history to include: Stroke, diabetes, hypertension, left below-knee amputation, right heel wound Social history: [facility] [place], smoked 2 packs a day for 45 years up to 3 weeks ago. No alcohol. . 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 Conjunctiva normal. HEENT: External appearance of nose and ears normal, oral cavity grossly normal. NECK: JVD not raised; masses not palpable. HEART: First and second heart sounds are normal; no edema. LUNGS: Respiratory rate increased; decreased breath sounds ABDOMEN: Soft, nontender, liver spleen not palpable, no masses palpable. PSYCH: Alert and oriented x3; mood and affect anxious. MUSCULOSKELETAL:No Clubbing/cyanosis;muscles-grossly intact. Right heel wound NEUROLOGICAL: Cranial nerves grossly intact; no facial asymmetry, power and sensation grossly intact. INVESTIGATIONS, reviewed in the clinical context: December 06: White count 9.9 hemoglobin 8.5 potassium 4.6 BUN 41 and creatinine 1.65 December 04: Sodium 141 potassium 4.2 BUN 40 creatinine 1.7 to December 2: White count 14 hemoglobin 8.4 platelets 349 potassium 5.4 BUN 38 creatinine 2.02 procalcitonin 0.23 I 25. Transferrin 102. Ferritin 701. B12 475 White count 13.3 hemoglobin 8.3 platelets 336 potassium 4.6 BUN 33 creatinine 1.75 CRP 21.2 Troponin I 0.020, 0.017 COVID 19/influenza type A/influenza type B: Not detected EKG tracing personally reviewed by me-normal sinus rhythm. Chest x-ray film personally reviewed by me-underexposed. Patchy infiltrates Previous labs: Creatinine 1.6 on November 09 2-D echocardiogram: EF 60 have a 65% Assessment and plan: -Acute severe COPD exacerbation in a previous smoker: Improvement DuoNeb 4 times a day. Pulmicort nebulizer twice a day. Prednisone 20 mg -Sepsis with blood cultures positive from November 30 with enterococcus faeecium/VRE Repeat blood cultures negative -Possible pneumonia suspected gram-negative organism/aspiration: Improved -Right heel diabetic wound negative for osteomyelitis per MRI. Recent debridement. Culture positive for Acinetobacter, MRSA Continue Unasyn, IV daptomycin. Follow with ID -Acute on chronic hypoxic respiratory failure from COPD/pneumonia possible fluid overload BiPAP. Patient was discharged on 5 L oxygen. -Normocytic anemia/iron deficiency anemia IV Ferrlecit. -Chronic kidney disease stage III likely diabetic nephropathy and hypertensive nephrosclerosis Creatinine 1.68 on November 09 -Diabetes mellitus type 2, chronically on insulin: Uncontrolled with hyperglycemia secondary to steroids Received insulin drip. Levemir 30 units. 10 units with meals Humalog. Sliding scale. -Essential hypertension Coreg 12.5 mg twice a day hydralazine 100 mg 3 times a day -Diabetic peripheral neuropathy: Uncontrolled Neurontin 100 mg 3 times a day -Restless leg syndrome: Uncontrolled Requip 0.5 mg by mouth 3 times a day -Left below-knee amputation -Full code Continue current medication treatment plan. Current medications several times at finished goods planner. Awaiting placement. Repeat request submitted to the insurance Company for rehab.
[2021-12-07 20:13] LABS: Glucose,Whole Blood 264 mg/dL (75-99)
[2021-12-07] MEDS: INSULIN DETEMIR (LEVEMIR) 100 UNIT/ML SYR SQ SCH (20:47)
[2021-12-07] MEDS: LORazepam 0.5 MG TAB PO PRN (22:43)
[2021-12-08] MEDS: oxyCODONE-APAP 10-325MG 1 EACH TAB PO PRN ×7 (00:28→23:59)
[2021-12-08] MEDS: AMPICILLIN-SULBACTAM 3 GM in SODIUM CHLORIDE 0.9% 100 ML IVPB SCH ×5 (00:29→23:59)
[2021-12-08 02:57] LABS: Glucose,Whole Blood 408 mg/dL (75-99)
[2021-12-08 02:57] LABS: Glucose,Whole Blood 368 mg/dL (75-99)
[2021-12-08 06:54] LABS: Glucose,Whole Blood 247 mg/dL (75-99)
[2021-12-08] MEDS: INSULIN ASPART (NovoLOG) 100 UNIT/ML VIAL SQ SCH ×7 (07:31→20:06)
[2021-12-08] MEDS: ENOXAPARIN 40 MG/0.4 ML SYRINGE SQ SCH (07:33)
[2021-12-08] MEDS: BUMETANIDE 1 MG TAB PO SCH ×2 (07:33→16:00)
[2021-12-08] MEDS: predniSONE 20 MG TAB PO SCH (07:34)
[2021-12-08] MEDS: hydrALAZINE HCL 50 MG TAB PO SCH ×3 (07:34→22:19)
[2021-12-08] MEDS: GABAPENTIN 100 MG CAP PO SCH ×3 (07:34→22:19)
[2021-12-08] MEDS: carvediloL 12.5 MG TAB PO SCH ×2 (07:34→15:56)
[2021-12-08] MEDS: TICAGRELOR 90 MG TAB PO SCH ×2 (07:35→20:06)
[2021-12-08] MEDS: levETIRAcetam 500 MG TAB PO SCH ×2 (07:35→20:07)
[2021-12-08] MEDS: IPRATROPIUM-ALBUTEROL 3 ML NEB INHALATION SCH ×4 (07:59→19:59)
[2021-12-08] MEDS: BUDESONIDE 1 MG/2 ML NEBU INHALATION SCH ×2 (07:59→19:58)
[2021-12-08 11:45] LABS: Glucose,Whole Blood 191 mg/dL (75-99)
--- NOTE | 2021-12-08 12:27 | P.PN ---
Progress Note - Text Progress Note Date: 12/08/21 Chief Complaint: Shortness of breath This is a 61-year-old patient, now following with Dr. Smalls and crescencio of [place] on. Patient was previously living in [place] then it moved to [place] for to 3 months. When patient came back and got admitted here because the daughter lives in town. Chronic stable medical conditions include diabetes, hypertension, left below- knee amputation. Patient was recently admitted to the hospital on 11/09/2021 with a right foot nonhealing ulcer. Had been a smoker up to recently. Wound on right heel, wound cultures were positive for Acinetobacter and MRSA. MRI was negative for osteomyelitis. Patient was discharged and IV Unasyn and daptomycin. Patient was discharged on ER and BiPAP. He had desaturated there and he was transferred as patient became short of breath. And was readmitted. Plan was patient received few weeks of antibiotics. Patient admitted with shortness of breath. Some cough. No sputum. No fever no chills. Some wheezing. Did feel a bit better with bronchodilators. Steroids. Admitted with acute COPD exacerbation, pneumonia, right heel wound. IV Unasyn daptomycin continued. Bronchodilators. Steroids. December 1: Breathing a bit better. Oral intake good. Some pain in the right heel. Being followed by ID and primary. Had a BM. December 2: Breathing better. Had a very lengthy discussion with the patient about his narcotic. And phantom pain. Pros and cause of increasing narcotics was discussed. Will increase Neurontin to 100 mg 3 times a day. Oral intake fair. Potassium increased we'll order Lokelma. And renal diet December 3: Complaining of significant pain in the right foot. Though it's a chronic issue. Pain management consulted. Neurontin was increased yesterday. Patient also complaining of restless leg. Requip 0.5 mg 3 times a day started. Care discussed length with the patient. Patient on insulin drip from yesterday because of uncontrolled Accu-Cheks. Prednisone cutback. December 05: Eating well. Patient was seen by pain management services. Put on [place] 10 every 6 when necessary. Authorization was declined by patient's insurance company. I left my number at the insurance company to call me back. Spoke earlier with a window caser. Breathing stable. December 06: This morning I got a call from [facility] physician. As the patient was not participating in PT OT. They wanted another request for authorization with updated PTOT notes. Discussed with the patient. Also with window caser. Pain management following the patient. [place] 10 changed to every 4 by them. Oral intake good. December 07: Communicate it several times with the social professionals about discharge. Isaias elvisbairon have made an application again for patient to go to rehab. Meantime patient worked with PT OT. Oral intake good. December 08: Breathing better. Decreased prednisone. Blister on right leg with a dry dressing. Antibiotics to continue. Up in a recliner. Active Medications Acetaminophen (Acetaminophen Tab 500 Mg Tab) 1,000 mg PO Q6HR PRN PRN Reason: Fever and/ or Pain Last Admin: 12/07/21 09:00 Dose: 1,000 mg Documented by: Albuterol/Ipratropium (Ipratropium-Albuterol 3 Ml Neb) 3 ml INHALATION RT-QID [facility] Last Admin: 12/08/21 07:59 Dose: 3 ml Documented by: Budesonide (Budesonide 1 Mg/2 Ml Nebu) 1 mg INHALATION RT-BID [facility] Last Admin: 12/08/21 07:59 Dose: 1 mg Documented by: Bumetanide (Bumetanide 1 Mg Tab) 1 mg PO BID@0900,1600 [facility] Last Admin: 12/08/21 07:33 Dose: 1 mg Documented by: Carvedilol (Carvedilol 12.5 Mg Tab) 12.5 mg PO BID-W/MEALS [facility] Last Admin: 12/08/21 07:34 Dose: 12.5 mg Documented by: Enoxaparin Sodium (Enoxaparin 40 Mg/0.4 Ml Syringe) 40 mg SQ DAILY [facility] Last Admin: 12/08/21 07:33 Dose: 40 mg Documented by: Gabapentin (Gabapentin 100 Mg Cap) 100 mg PO TID [facility] Last Admin: 12/08/21 07:34 Dose: 100 mg Documented by: Hydralazine HCl (Hydralazine Hcl 50 Mg Tab) 100 mg PO TID [facility] Last Admin: 12/08/21 07:34 Dose: 100 mg Documented by: Daptomycin 600 mg/ Sodium (Chloride) 50 mls @ 100 mls/hr IVPB Q24H [facility]; Protocol Last Admin: 12/08/21 02:11 Dose: 100 mls/hr Documented by: Ampicillin Sodium/Sulbactam (Sodium 3 gm/ Sodium Chloride) 100 mls @ 200 mls/hr IVPB Q6HR [facility]; Protocol Last Admin: 12/08/21 05:55 Dose: 200 mls/hr Documented by: Insulin Aspart (Insulin Aspart (Novolog) 100 Unit/Ml Vial) 10 unit SQ AC-TID [facility] Last Admin: 12/08/21 07:31 Dose: 10 unit Documented by: Insulin Aspart (Insulin Aspart (Novolog) 100 Unit/Ml Vial) 0 unit SQ ACHS [facility]; Protocol Last Admin: 12/08/21 07:32 Dose: 5 unit Documented by: Insulin Detemir (Insulin Detemir (Levemir) 100 Unit/Ml Syr) 30 unit SQ HS [facility] Last Admin: 12/07/21 20:47 Dose: 30 unit Documented by: Ketoconazole (Ketoconazole 2% Shampoo 1 Applic/Ml) 1 applic TOPICAL MoTh [facility] Last Admin: 12/06/21 10:21 Dose: Not Given Documented by: Levetiracetam (Levetiracetam 500 Mg Tab) 1,000 mg PO BID [facility] Last Admin: 12/08/21 07:35 Dose: 1,000 mg Documented by: Lorazepam (Lorazepam 0.5 Mg Tab) 0.5 mg PO Q8HR PRN PRN Reason: Agitation or Acute Anxiety Last Admin: 12/07/21 22:43 Dose: 0.5 mg Documented by: Oxycodone/Acetaminophen (Oxycodone-Apap 10-325mg 1 Each Tab) 1 each PO Q4HR PRN PRN Reason: Pain Stop: 12/10/21 23:59 Last Admin: 12/08/21 08:53 Dose: 1 each Documented by: Prednisone (Prednisone 10 Mg Tab) 10 mg PO DAILY [facility] Ropinirole HCl (Ropinirole Hcl 0.25 Mg Tab) 0.5 mg PO TID [facility] Last Admin: 12/08/21 07:33 Dose: Not Given Documented by: Ticagrelor (Ticagrelor 90 Mg Tab) 90 mg PO BID [facility] Last Admin: 12/08/21 07:35 Dose: 90 mg Documented by: Past medical history to include: Stroke, diabetes, hypertension, left below-knee amputation, right heel wound Social history: [facility] [place], smoked 2 packs a day for 45 years up to 3 weeks ago. No alcohol. . 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 Conjunctiva normal. HEENT: External appearance of nose and ears normal, oral cavity grossly normal. NECK: JVD not raised; masses not palpable. HEART: First and second heart sounds are normal; no edema. LUNGS: Respiratory rate increased; decreased breath sounds ABDOMEN: Soft, nontender, liver spleen not palpable, no masses palpable. PSYCH: Alert and oriented x3; mood and affect anxious. MUSCULOSKELETAL:No Clubbing/cyanosis;muscles-grossly intact. Right heel wound NEUROLOGICAL: Cranial nerves grossly intact; no facial asymmetry, power and sensation grossly intact. INVESTIGATIONS, reviewed in the clinical context: December 06: White count 9.9 hemoglobin 8.5 potassium 4.6 BUN 41 and creatinine 1.65 December 04: Sodium 141 potassium 4.2 BUN 40 creatinine 1.7 to December 2: White count 14 hemoglobin 8.4 platelets 349 potassium 5.4 BUN 38 creatinine 2.02 procalcitonin 0.23 I 25. Transferrin 102. Ferritin 701. B12 475 White count 13.3 hemoglobin 8.3 platelets 336 potassium 4.6 BUN 33 creatinine 1.75 CRP 21.2 Troponin I 0.020, 0.017 COVID 19/influenza type A/influenza type B: Not detected EKG tracing personally reviewed by me-normal sinus rhythm. Chest x-ray film personally reviewed by me-underexposed. Patchy infiltrates Previous labs: Creatinine 1.6 on November 09 2-D echocardiogram: EF 60 have a 65% Assessment and plan: -Acute severe COPD exacerbation in a previous smoker: Improvement DuoNeb 4 times a day. Pulmicort nebulizer twice a day. Prednisone 20 mg -Sepsis with blood cultures positive from November 30 with enterococcus faeecium/VRE Repeat blood cultures negative -Possible pneumonia suspected gram-negative organism/aspiration: Improved -Right heel diabetic wound negative for osteomyelitis per MRI. Recent debridement. Culture positive for Acinetobacter, MRSA Continue Unasyn, IV daptomycin. Follow with ID -Acute on chronic hypoxic respiratory failure from COPD/pneumonia possible fluid overload BiPAP. Patient was discharged on 5 L oxygen. -Normocytic anemia/iron deficiency anemia IV Ferrlecit. -Chronic kidney disease stage III likely diabetic nephropathy and hypertensive nephrosclerosis Creatinine 1.68 on November 09 -Diabetes mellitus type 2, chronically on insulin: Uncontrolled with hyperglycemia secondary to steroids Received insulin drip. Levemir 30 units. 10 units with meals Humalog. Sliding scale. -Essential hypertension Coreg 12.5 mg twice a day hydralazine 100 mg 3 times a day -Diabetic peripheral neuropathy: Uncontrolled Neurontin 100 mg 3 times a day -Restless leg syndrome: Uncontrolled Requip 0.5 mg by mouth 3 times a day -Left below-knee amputation -Full code Awaiting placement. Continue antibiotics. Decrease prednisone to 10 mg tomorrow. Dressing over fluid blister on the extremity.
[2021-12-08] MEDS: LORazepam 0.5 MG TAB PO PRN (12:34)
[2021-12-08 16:39] LABS: Glucose,Whole Blood 346 mg/dL (75-99)
[2021-12-08] MEDS: INSULIN DETEMIR (LEVEMIR) 100 UNIT/ML SYR SQ SCH (20:04)
[2021-12-08 20:05] LABS: Glucose,Whole Blood 324 mg/dL (75-99)
[2021-12-08 20:47] LABS: Glucose,Whole Blood 296 mg/dL (75-99)
--- NOTE | 2021-12-09 00:23 | P.PN ---
Subjective Progress Note Date: 12/08/21 Principal diagnosis: Right heel diabetic foot infection and bacteremia Patient is a 61-year-old male with a recent diagnosis of right heel osteomyelitis on the basis of wound tracking down to the wound at the time of debridement culture were positive for Acinetobacter and MRSA, patient treated with Unasyn and daptomycin presenting back to the hospital with the acute r espiratory failure. On today's evaluation that is 12/08/2021, the patient remains to be afebrile, th e patient is breathing comfortably on nasal cannula oxygen , the patient denies chest pain , the patient did have mild to moderate cough with occasional sputum production, the patient denies any abdominal pain no diarrhea or any worsening pain to the right heel area Objective - Vital Signs Vital signs: Vital Signs Temp 98.6 F 12/08/21 14:00 Pulse 89 12/08/21 14:00 Resp 17 12/08/21 14:00 BP 154/71 12/08/21 14:00 Pulse Ox 93 L 12/08/21 14:00 Intake & Output 12/07/21 12/08/21 12/08/21 18:59 06:59 18:59 Output Total 600 Balance -600 Output: Urine 600 Other: Voiding Method Urinal - Exam GENERAL DESCRIPTION: Middle-age male lying in bed in no distress RESPIRATORY SYSTEM: Unlabored breathing , decreased breath sounds at bases HEART: S1 S2 regular rate and rhythm , ABDOMEN: Soft , no tenderness EXTREMITIES: Right heel wound is currently dressed no drainage on the dressings - Labs CBC & Chem 7: 12/06/21 05:04 12/06/21 05:04 Labs: Abnormal Lab Results - Last 24 Hours (Table) 12/07/21 12/07/21 12/08/21 Range/Units 16:59 20:07 02:47 POC Glucose (mg/dL) 261 H 264 H 408 H (75-99) mg/dL 12/08/21 12/08/21 12/08/21 Range/Units 02:49 06:53 11:43 POC Glucose (mg/dL) 368 H 247 H 191 H (75-99) mg/dL Microbiology - Last 24 Hours (Table) 12/02/21 16:45 Blood Culture - Preliminary Blood No Growth after 120 hours 12/02/21 15:21 Blood Culture - Preliminary Blood No Growth after 120 hours 12/02/21 15:45 Blood Culture - Preliminary Blood No Growth after 120 hours Assessment and Plan (1) Diabetic infection of right foot Current Visit: Yes Status: Acute Code(s): E11.628 - TYPE 2 DIABETES MELLITUS WITH OTHER SKIN COMPLICATIONS; L08.9 - LOCAL INFECTION OF THE SKIN AND SUBC UTANEOUS TISSUE, UNSP SNOMED Code(s): 82013908 Plan: 1patient with her right heel diabetic foot infection in this patient who is status post surgical debridement and culture positive for MRSA anaerobes and Acinetobacter the patient seem to have clinically responded as the patient right heel wound has decrease in size and does not look that deep with no surrounding redness and x-rays were negative for any osteomyelitis. 2patient with a positive blood culture with VRE concern for possible PICC related, however repeat blood culture has been negative 3patient seemed to showing overall clinical improvement and the patient will continue with Unasyn and daptomycin to finish a 6 week course of therapy , patient is currently waiting for insurance authorization for half-way placement 4local wound care to the right heel wound with the Medihoney followed by moist dressing keep the area of the pressure. Time with Patient: Less than 30
[2021-12-09] MEDS: LORazepam 0.5 MG TAB PO PRN ×3 (02:05→21:21)
[2021-12-09 02:53] LABS: Glucose,Whole Blood 210 mg/dL (75-99)
[2021-12-09] MEDS: oxyCODONE-APAP 10-325MG 1 EACH TAB PO PRN ×5 (03:36→21:21)
[2021-12-09] MEDS: AMPICILLIN-SULBACTAM 3 GM in SODIUM CHLORIDE 0.9% 100 ML IVPB SCH ×3 (05:31→16:59)
[2021-12-09 06:42] LABS: Glucose,Whole Blood 310 mg/dL (75-99)
[2021-12-09] MEDS: BUDESONIDE 1 MG/2 ML NEBU INHALATION SCH ×2 (08:24→19:09)
[2021-12-09] MEDS: IPRATROPIUM-ALBUTEROL 3 ML NEB INHALATION SCH ×4 (08:24→19:09)
[2021-12-09] MEDS: INSULIN ASPART (NovoLOG) 100 UNIT/ML VIAL SQ SCH ×7 (09:17→21:20)
[2021-12-09] MEDS: hydrALAZINE HCL 50 MG TAB PO SCH ×3 (09:18→21:20)
[2021-12-09] MEDS: ENOXAPARIN 40 MG/0.4 ML SYRINGE SQ SCH (09:18)
[2021-12-09] MEDS: levETIRAcetam 500 MG TAB PO SCH ×2 (09:19→21:20)
[2021-12-09] MEDS: predniSONE 10 MG TAB PO SCH (09:19)
[2021-12-09] MEDS: BUMETANIDE 1 MG TAB PO SCH ×2 (09:19→17:01)
[2021-12-09] MEDS: GABAPENTIN 100 MG CAP PO SCH ×3 (09:19→22:32)
[2021-12-09] MEDS: carvediloL 12.5 MG TAB PO SCH ×2 (09:19→17:00)
[2021-12-09] MEDS: TICAGRELOR 90 MG TAB PO SCH ×2 (09:20→21:20)
[2021-12-09 11:38] LABS: Glucose,Whole Blood 278 mg/dL (75-99)
[2021-12-09] MEDS ORDERED: GABAPENTIN 100 MG CAP PO STA (13:43)
[2021-12-09 17:02] LABS: Glucose,Whole Blood 251 mg/dL (75-99)
--- NOTE | 2021-12-09 19:27 | P.PN ---
Progress Note - Text Progress Note Date: 12/09/21 Chief Complaint: Shortness of breath This is a 61-year-old patient, now following with Dr. Smalls and [facility] of [place] on. Patient was previously living in [place] then it moved to [place] for to 3 months. When patient came back and got admitted here because the daughter lives in town. Chronic stable medical conditions include diabetes, hypertension, left below- knee amputation. Patient was recently admitted to the hospital on 11/09/2021 with a right foot nonhealing ulcer. Had been a smoker up to recently. Wound on right heel, wound cultures were positive for Acinetobacter and MRSA. MRI was negative for osteomyelitis. Patient was discharged and IV Unasyn and daptomycin. Patient was discharged on ER and BiPAP. He had desaturated there and he was transferred as patient became short of breath. And was readmitted. Plan was patient received few weeks of antibiotics. Patient admitted with shortness of breath. Some cough. No sputum. No fever no chills. Some wheezing. Did feel a bit better with bronchodilators. Steroids. Admitted with acute COPD exacerbation, pneumonia, right heel wound. IV Unasyn daptomycin continued. Bronchodilators. Steroids. December 1: Breathing a bit better. Oral intake good. Some pain in the right heel. Being followed by ID and primary. Had a BM. December 2: Breathing better. Had a very lengthy discussion with the patient about his narcotic. And phantom pain. Pros and cause of increasing narcotics was discussed. Will increase Neurontin to 100 mg 3 times a day. Oral intake fair. Potassium increased we'll order Lokelma. And renal diet December 3: Complaining of significant pain in the right foot. Though it's a chronic issue. Pain management consulted. Neurontin was increased yesterday. Patient also complaining of restless leg. Requip 0.5 mg 3 times a day started. Care discussed length with the patient. Patient on insulin drip from yesterday because of uncontrolled Accu-Cheks. Prednisone cutback. December 05: Eating well. Patient was seen by pain management services. Put on Simpson 10 every 6 when necessary. Authorization was declined by patient's insurance company. I left my number at the insurance company to call me back. Spoke earlier with a correctional counselor/case manager. Breathing stable. December 06: This morning I got a call from [facility] physician. As the patient was not participating in PT OT. They wanted another request for authorization with updated PTOT notes. Discussed with the patient. Also with correctional counselor/case manager. Pain management following the patient. Simpson 10 changed to every 4 by them. Oral intake good. December 07: Communicate it several times with the sr. social media & mobile manager about discharge. Isaias daley have made an application again for patient to go to rehab. Meantime patient worked with PT OT. Oral intake good. December 08: Breathing better. Decreased prednisone. Blister on right leg with a dry dressing. Antibiotics to continue. Up in a recliner. December 09: Pain medications discussed with the patient. He is being followed by a pain specialist. In the meantime will increase Neurontin. total of 400 mg daily. Active Medications Acetaminophen (Acetaminophen Tab 500 Mg Tab) 1,000 mg PO Q6HR PRN PRN Reason: Fever and/ or Pain Last Admin: 12/07/21 09:00 Dose: 1,000 mg Documented by: Albuterol/Ipratropium (Ipratropium-Albuterol 3 Ml Neb) 3 ml INHALATION RT-QID [facility] Last Admin: 12/09/21 19:09 Dose: Not Given Documented by: Budesonide (Budesonide 1 Mg/2 Ml Nebu) 1 mg INHALATION RT-BID [facility] Last Admin: 12/09/21 19:09 Dose: Not Given Documented by: Bumetanide (Bumetanide 1 Mg Tab) 1 mg PO BID@0900,1600 [facility] Last Admin: 12/09/21 17:01 Dose: 1 mg Documented by: Carvedilol (Carvedilol 12.5 Mg Tab) 12.5 mg PO BID-W/MEALS [facility] Last Admin: 12/09/21 17:00 Dose: 12.5 mg Documented by: Enoxaparin Sodium (Enoxaparin 40 Mg/0.4 Ml Syringe) 40 mg SQ DAILY [facility] Last Admin: 12/09/21 09:18 Dose: 40 mg Documented by: Gabapentin (Gabapentin 100 Mg Cap) 100 mg PO 0900,1600 [facility] Last Admin: 12/09/21 17:00 Dose: 100 mg Documented by: Gabapentin (Gabapentin 100 Mg Cap) 200 mg PO [facility] Hydralazine HCl (Hydralazine Hcl 50 Mg Tab) 100 mg PO TID [facility] Last Admin: 12/09/21 17:01 Dose: 100 mg Documented by: Daptomycin 600 mg/ Sodium (Chloride) 50 mls @ 100 mls/hr IVPB Q24H [facility]; Protocol Last Admin: 12/09/21 02:30 Dose: 100 mls/hr Documented by: Ampicillin Sodium/Sulbactam (Sodium 3 gm/ Sodium Chloride) 100 mls @ 200 mls/hr IVPB Q6HR [facility]; Protocol Last Admin: 12/09/21 16:59 Dose: 200 mls/hr Documented by: Insulin Aspart (Insulin Aspart (Novolog) 100 Unit/Ml Vial) 10 unit SQ AC-TID [facility] Last Admin: 12/09/21 17:42 Dose: 10 unit Documented by: Insulin Aspart (Insulin Aspart (Novolog) 100 Unit/Ml Vial) 0 unit SQ ACHS [facility]; Protocol Last Admin: 12/09/21 17:42 Dose: 6 unit Documented by: Insulin Detemir (Insulin Detemir (Levemir) 100 Unit/Ml Syr) 30 unit SQ HS [facility] Last Admin: 12/08/21 20:04 Dose: 30 unit Documented by: Ketoconazole (Ketoconazole 2% Shampoo 1 Applic/Ml) 1 applic TOPICAL MoTh [facility] Last Admin: 12/06/21 10:21 Dose: Not Given Documented by: Levetiracetam (Levetiracetam 500 Mg Tab) 1,000 mg PO BID [facility] Last Admin: 12/09/21 09:19 Dose: 1,000 mg Documented by: Lorazepam (Lorazepam 0.5 Mg Tab) 0.5 mg PO Q8HR PRN PRN Reason: Agitation or Acute Anxiety Last Admin: 12/09/21 13:50 Dose: 0.5 mg Documented by: Oxycodone/Acetaminophen (Oxycodone-Apap 10-325mg 1 Each Tab) 1 each PO Q4HR PRN PRN Reason: Pain Stop: 12/10/21 23:59 Last Admin: 12/09/21 16:59 Dose: 1 each Documented by: Prednisone (Prednisone 10 Mg Tab) 10 mg PO DAILY [facility] Last Admin: 12/09/21 09:19 Dose: 10 mg Documented by: Ropinirole HCl (Ropinirole Hcl 0.25 Mg Tab) 0.5 mg PO TID [facility] Last Admin: 12/09/21 16:59 Dose: 0.5 mg Documented by: Ticagrelor (Ticagrelor 90 Mg Tab) 90 mg PO BID [facility] Last Admin: 12/09/21 09:20 Dose: 90 mg Documented by: Past medical history to include: Stroke, diabetes, hypertension, left below-knee amputation, right heel wound Social history: [facility] [employer], smoked 2 packs a day for 45 years up to 3 weeks ago. No alcohol. . 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 Conjunctiva normal. HEENT: External appearance of nose and ears normal, oral cavity grossly normal. NECK: JVD not raised; masses not palpable. HEART: First and second heart sounds are normal; no edema. LUNGS: Respiratory rate increased; decreased breath sounds ABDOMEN: Soft, nontender, liver spleen not palpable, no masses palpable. PSYCH: Alert and oriented x3; mood and affect anxious. MUSCULOSKELETAL:No Clubbing/cyanosis;muscles-grossly intact. Right heel wound NEUROLOGICAL: Cranial nerves grossly intact; no facial asymmetry, power and sensation grossly intact. INVESTIGATIONS, reviewed in the clinical context: December 06: White count 9.9 hemoglobin 8.5 potassium 4.6 BUN 41 and creatinine 1.65 December 04: Sodium 141 potassium 4.2 BUN 40 creatinine 1.7 to December 2: White count 14 hemoglobin 8.4 platelets 349 potassium 5.4 BUN 38 creatinine 2.02 procalcitonin 0.23 I 25. Transferrin 102. Ferritin 701. B12 475 White count 13.3 hemoglobin 8.3 platelets 336 potassium 4.6 BUN 33 creatinine 1.75 CRP 21.2 Troponin I 0.020, 0.017 COVID 19/influenza type A/influenza type B: Not detected EKG tracing personally reviewed by me-normal sinus rhythm. Chest x-ray film personally reviewed by me-underexposed. Patchy infiltrates Previous labs: Creatinine 1.6 on November 09 2-D echocardiogram: EF 60 have a 65% Assessment and plan: -Acute severe COPD exacerbation in a previous smoker: Improvement DuoNeb 4 times a day. Pulmicort nebulizer twice a day. Prednisone 10 mg -Sepsis with blood cultures positive from November 30 with enterococcus faeecium/VRE Repeat blood cultures negative -Possible pneumonia suspected gram-negative organism/aspiration: Improved -Right heel diabetic wound negative for osteomyelitis per MRI. Recent debridement. Culture positive for Acinetobacter, MRSA Continue Unasyn, IV daptomycin. Follow with ID -Acute on chronic hypoxic respiratory failure from COPD/pneumonia possible fluid overload BiPAP. Patient was discharged on 5 L oxygen. -Normocytic anemia/iron deficiency anemia IV Ferrlecit. -Chronic kidney disease stage III likely diabetic nephropathy and hypertensive nephrosclerosis Creatinine 1.68 on November 09 -Diabetes mellitus type 2, chronically on insulin: Uncontrolled with hyperglycemia secondary to steroids Received insulin drip. Levemir 30 units. 10 units with meals Humalog. Sliding scale. -Essential hypertension Coreg 12.5 mg twice a day hydralazine 100 mg 3 times a day -Diabetic peripheral neuropathy: Neurontin total of 400 mg a day -Restless leg syndrome: Uncontrolled Requip 0.5 mg by mouth 3 times a day -Left below-knee amputation -Full code Awaiting placement. Continue antibiotics. Increase Neurontin to a total of 400 mg a day. Discharged tomorrow
[2021-12-09 21:14] LABS: Glucose,Whole Blood 191 mg/dL (75-99)
[2021-12-09] MEDS: INSULIN DETEMIR (LEVEMIR) 100 UNIT/ML SYR SQ SCH (21:20)
[2021-12-10] MEDS: AMPICILLIN-SULBACTAM 3 GM in SODIUM CHLORIDE 0.9% 100 ML IVPB SCH ×5 (00:08→23:19)
[2021-12-10] MEDS: oxyCODONE-APAP 10-325MG 1 EACH TAB PO PRN ×6 (02:45→23:18)
[2021-12-10 06:59] LABS: Glucose,Whole Blood 162 mg/dL (75-99)
[2021-12-10] MEDS: IPRATROPIUM-ALBUTEROL 3 ML NEB INHALATION SCH ×4 (07:16→20:44)
[2021-12-10] MEDS: BUDESONIDE 1 MG/2 ML NEBU INHALATION SCH ×2 (07:16→20:44)
--- NOTE | 2021-12-10 07:53 | P.PN ---
Subjective Progress Note Date: 12/09/21 Principal diagnosis: Right heel diabetic foot infection and bacteremia Patient is a 61-year-old male with a recent diagnosis of right heel osteomyelitis on the basis of wound tracking down to the wound at the time of debridement culture were positive for Acinetobacter and MRSA, patient treated with Unasyn and daptomycin presenting back to the hospital with the acute r espiratory failure. On today's evaluation that is 12/09/2021, the patient denies any fever or any ch ills, the patient is breathing comfortably on nasal cannula oxygen , the patient denies chest pain , the patient did have cough with occasional sputum production, the patient denies any abdominal pain no diarrhea and pain to the right heel area is currently controlled Objective - Vital Signs Vital signs: Vital Signs Temp 98.1 F 12/09/21 08:00 Pulse 98 12/09/21 08:37 Resp 18 12/09/21 08:00 BP 175/77 12/09/21 08:00 Pulse Ox 98 12/09/21 08:00 Intake & Output 12/08/21 12/09/21 12/09/21 18:59 06:59 18:59 Output Total 700 Balance -700 Output: Urine 700 Other: # Voids 4 2 # Bowel Movements 3 - Exam GENERAL DESCRIPTION: Middle-age male lying in bed in no distress RESPIRATORY SYSTEM: Unlabored breathing , decreased breath sounds at bases HEART: S1 S2 regular rate and rhythm , ABDOMEN: Soft , no tenderness EXTREMITIES: Right heel wound is currently dressed no drainage on the dressings - Labs CBC & Chem 7: 12/06/21 05:04 12/06/21 05:04 Labs: Abnormal Lab Results - Last 24 Hours (Table) 12/08/21 12/08/21 12/08/21 Range/Units 16:37 20:03 20:45 POC Glucose (mg/dL) 346 H 324 H 296 H (75-99) mg/dL 12/09/21 12/09/21 12/09/21 Range/Units 02:51 06:41 11:36 POC Glucose (mg/dL) 210 H 310 H 278 H (75-99) mg/dL Microbiology - Last 24 Hours (Table) 12/02/21 16:45 Blood Culture - Final Blood No Growth after 144 hours 12/02/21 15:21 Blood Culture - Final Blood No Growth after 144 hours 12/02/21 15:45 Blood Culture - Final Blood No Growth after 144 hours Assessment and Plan (1) Diabetic infection of right foot Current Visit: Yes Status: Acute Code(s): E11.628 - TYPE 2 DIABETES MELLITUS WITH OTHER SKIN COMPLICATIONS; L08.9 - LOCAL INFECTION OF THE SKIN AND SUB CUTANEOUS TISSUE, UNSP SNOMED Code(s): 83254217 Plan: 1patient with her right heel diabetic foot infection in this patient who is status post surgical debridement and culture positive for MRSA anaerobes and Acinetobacter the patient seem to have clinically responded as the patient right heel wound has decrease in size and does not look that deep with no surrounding redness and x-rays were negative for any osteomyelitis. 2patient with a positive blood culture with VRE concern for possible PICC related, however repeat blood culture has been negative 3patient is slowly clinical improvement and the patient will continue with Unasyn and daptomycin to finish a 6 week course of therapy , patient is currently waiting for placement 4local wound care to the right heel wound with the Medihoney followed by moist dressing keep the area of the pressure. Time with Patient: Less than 30
[2021-12-10] MEDS: ENOXAPARIN 40 MG/0.4 ML SYRINGE SQ SCH (07:59)
[2021-12-10] MEDS: levETIRAcetam 500 MG TAB PO SCH ×2 (08:00→21:01)
[2021-12-10] MEDS: hydrALAZINE HCL 50 MG TAB PO SCH ×3 (08:00→21:01)
[2021-12-10] MEDS: INSULIN ASPART (NovoLOG) 100 UNIT/ML VIAL SQ SCH ×7 (08:00→21:11)
[2021-12-10] MEDS: TICAGRELOR 90 MG TAB PO SCH ×2 (08:00→21:01)
[2021-12-10] MEDS: BUMETANIDE 1 MG TAB PO SCH ×2 (08:00→15:22)
[2021-12-10] MEDS: carvediloL 12.5 MG TAB PO SCH ×2 (08:00→16:59)
[2021-12-10] MEDS: predniSONE 10 MG TAB PO SCH (08:00)
[2021-12-10] MEDS: GABAPENTIN 100 MG CAP PO SCH ×3 (08:01→21:01)
[2021-12-10] MEDS: KETOCONAZOLE 2% SHAMPOO 1 APPLIC/ML TOPICAL SCH (09:18)
[2021-12-10 11:15] LABS: Glucose,Whole Blood 297 mg/dL (75-99)
--- NOTE | 2021-12-10 12:59 | US ---
EXAMINATION TYPE: US venous doppler duplex LE RT DATE OF EXAM: 12/10/2021 12:35 PM COMPARISON: Bilateral lower extremity venous ultrasound November 22, 2021 CLINICAL HISTORY: Rule out DVT. Swelling and pain SIDE PERFORMED: Right TECHNIQUE: The lower extremity deep venous system is examined utilizing real time linear array sonog marie with graded compression, doppler sonography and color-flow sonography. VESSELS IMAGED: Common Femoral Vein Deep Femoral Vein Greater Saphenous Vein * Femoral Vein Popliteal Vein Small Saphenous Vein * Proximal Calf Veins (* superficial vessels) Large lymph nodes seen in groin, extensive pitting edema, patient in pain, unable to move from chair, unable to do compressions in groin, unable to visualize for compressions as well. Right Leg: Appears negative for DVT as seen, very limited visualization due to above limitations. Grayscale, color doppler, spectral doppler imaging performed of the deep veins of the right lower ext remity. Initial images show enlarged abnormal right groin lymph node. Satisfactory color flow and p hasicity is seen. Compression views cannot be obtained. Prominent subcutaneous edema at popliteal lev el is noted. Suboptimal evaluation of the mid popliteal vein and veins distal to the distal right pop liteal vein. IMPRESSION: Suboptimal study without acute DVT in the right lower extremity clearly seen.
[2021-12-10 15:55] LABS: Glucose,Whole Blood 355 mg/dL (75-99)
[2021-12-10] MEDS ORDERED: BUMETANIDE 0.25 MG/ML 4 ML VIAL IVP STA (17:05)
--- NOTE | 2021-12-10 17:11 | P.PN ---
Progress Note - Text Progress Note Date: 12/10/21 Chief Complaint: Shortness of breath This is a 61-year-old patient, now following with Dr. Smalls and crescencio of [facility] on. Patient was previously living in [place] then it moved to [place] for to 3 months. When patient came back and got admitted here because the daughter lives in town. Chronic stable medical conditions include diabetes, hypertension, left below- knee amputation. Patient was recently admitted to the hospital on 11/09/2021 with a right foot nonhealing ulcer. Had been a smoker up to recently. Wound on right heel, wound cultures were positive for Acinetobacter and MRSA. MRI was negative for osteomyelitis. Patient was discharged and IV Unasyn and daptomycin. Patient was discharged on ER and BiPAP. He had desaturated there and he was transferred as patient became short of breath. And was readmitted. Plan was patient received few weeks of antibiotics. Patient admitted with shortness of breath. Some cough. No sputum. No fever no chills. Some wheezing. Did feel a bit better with bronchodilators. Steroids. Admitted with acute COPD exacerbation, pneumonia, right heel wound. IV Unasyn daptomycin continued. Bronchodilators. Steroids. December 1: Breathing a bit better. Oral intake good. Some pain in the right heel. Being followed by ID and primary. Had a BM. December 2: Breathing better. Had a very lengthy discussion with the patient about his narcotic. And phantom pain. Pros and cause of increasing narcotics was discussed. Will increase Neurontin to 100 mg 3 times a day. Oral intake fair. Potassium increased we'll order Lokelma. And renal diet December 3: Complaining of significant pain in the right foot. Though it's a chronic issue. Pain management consulted. Neurontin was increased yesterday. Patient also complaining of restless leg. Requip 0.5 mg 3 times a day started. Care discussed length with the patient. Patient on insulin drip from yesterday because of uncontrolled Accu-Cheks. Prednisone cutback. December 05: Eating well. Patient was seen by pain management services. Put on [place] 10 every 6 when necessary. Authorization was declined by patient's insurance company. I left my number at the insurance company to call me back. Spoke earlier with a ed case manager. Breathing stable. December 06: This morning I got a call from [facility] physician. As the patient was not participating in PT OT. They wanted another request for authorization with updated PTOT notes. Discussed with the patient. Also with ed case manager. Pain management following the patient. [place] 10 changed to every 4 by them. Oral intake good. December 07: Communicate it several times with the social security benefits interviewer about discharge. [facility] have made an application again for patient to go to rehab. Meantime patient worked with PT OT. Oral intake good. December 08: Breathing better. Decreased prednisone. Blister on right leg with a dry dressing. Antibiotics to continue. Up in a recliner. December 09: Pain medications discussed with the patient. He is being followed by a pain specialist. In the meantime will increase Neurontin. total of 400 mg daily. December 10: Oral intake good. Fluid Blisters on right lower exstrophy. Kerlix with Mark wrap. Some restriction 8 units cc a day. 1 dose of 1 mg IV Bumex ordered. Per ed case manager appeal to insurance company, ending Active Medications Acetaminophen (Acetaminophen Tab 500 Mg Tab) 1,000 mg PO Q6HR PRN PRN Reason: Fever and/ or Pain Last Admin: 12/07/21 09:00 Dose: 1,000 mg Documented by: Albuterol/Ipratropium (Ipratropium-Albuterol 3 Ml Neb) 3 ml INHALATION RT-QID [facility] Last Admin: 12/10/21 15:24 Dose: Not Given Documented by: Budesonide (Budesonide 1 Mg/2 Ml Nebu) 1 mg INHALATION RT-BID [facility] Last Admin: 12/10/21 07:16 Dose: Not Given Documented by: Bumetanide (Bumetanide 1 Mg Tab) 1 mg PO BID@0900,1600 [facility] Last Admin: 12/10/21 15:22 Dose: 1 mg Documented by: Bumetanide (Bumetanide 0.25 Mg/Ml 4 Ml Vial) 1 mg IVP ONCE STA Stop: 12/10/21 17:06 Carvedilol (Carvedilol 12.5 Mg Tab) 12.5 mg PO BID-W/MEALS [facility] Last Admin: 12/10/21 16:59 Dose: 12.5 mg Documented by: Enoxaparin Sodium (Enoxaparin 40 Mg/0.4 Ml Syringe) 40 mg SQ DAILY [facility] Last Admin: 12/10/21 07:59 Dose: 40 mg Documented by: Gabapentin (Gabapentin 100 Mg Cap) 100 mg PO 0900,1600 [facility] Last Admin: 12/10/21 15:22 Dose: 100 mg Documented by: Gabapentin (Gabapentin 100 Mg Cap) 200 mg PO HS [facility] Last Admin: 12/09/21 22:32 Dose: 200 mg Documented by: Hydralazine HCl (Hydralazine Hcl 50 Mg Tab) 100 mg PO TID [facility] Last Admin: 12/10/21 15:22 Dose: 100 mg Documented by: Daptomycin 600 mg/ Sodium (Chloride) 50 mls @ 100 mls/hr IVPB Q24H [facility]; Protoc ol Last Admin: 12/10/21 02:39 Dose: 100 mls/hr Documented by: Ampicillin Sodium/Sulbactam (Sodium 3 gm/ Sodium Chloride) 100 mls @ 200 mls/hr IVPB Q6HR [facility]; Protocol Last Admin: 12/10/21 17:00 Dose: 200 mls/hr Documented by: Insulin Aspart (Insulin Aspart (Novolog) 100 Unit/Ml Vial) 10 unit SQ AC-TID [facility] Last Admin: 12/10/21 16:59 Dose: 10 unit Documented by: Insulin Aspart (Insulin Aspart (Novolog) 100 Unit/Ml Vial) 0 unit SQ ACHS [facility]; Protocol Last Admin: 12/10/21 16:59 Dose: 10 unit Documented by: Insulin Detemir (Insulin Detemir (Levemir) 100 Unit/Ml Syr) 30 unit SQ HS [facility] Last Admin: 12/09/21 21:20 Dose: 30 unit Documented by: Ketoconazole (Ketoconazole 2% Shampoo 1 Applic/Ml) 1 applic TOPICAL MoTh [facility] Last Admin: 12/10/21 09:18 Dose: Not Given Documented by: Levetiracetam (Levetiracetam 500 Mg Tab) 1,000 mg PO BID [facility] Last Admin: 12/10/21 08:00 Dose: 1,000 mg Documented by: Lorazepam (Lorazepam 0.5 Mg Tab) 0.5 mg PO Q8HR PRN PRN Reason: Agitation or Acute Anxiety Last Admin: 12/09/21 21:21 Dose: 0.5 mg Documented by: Oxycodone/Acetaminophen (Oxycodone-Apap 10-325mg 1 Each Tab) 1 each PO Q4HR PRN PRN Reason: Pain Stop: 12/10/21 23:59 Last Admin: 12/10/21 15:22 Dose: 1 each Documented by: Prednisone (Prednisone 10 Mg Tab) 10 mg PO DAILY [facility] Last Admin: 12/10/21 08:00 Dose: 10 mg Documented by: Ropinirole HCl (Ropinirole Hcl 0.25 Mg Tab) 0.5 mg PO TID [facility] Last Admin: 12/10/21 15: Dose: 0.5 mg Documented by: Ticagrelor (Ticagrelor 90 Mg Tab) 90 mg PO BID [facility] Last Admin: 12/10/21 08:00 Dose: 90 mg Documented by: Past medical history to include: Stroke, diabetes, hypertension, left below-knee amputation, right heel wound Social history: [facility], smoked 2 packs a day for 45 years up to 3 weeks ago. No alcohol. . 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 Conjunctiva normal. HEENT: External appearance of nose and ears normal, oral cavity grossly normal. NECK: JVD not raised; masses not palpable. HEART: First and second heart sounds are normal; no edema. LUNGS: Respiratory rate increased; decreased breath sounds ABDOMEN: Soft, nontender, liver spleen not palpable, no masses palpable. PSYCH: Alert and oriented x3; mood and affect anxious. MUSCULOSKELETAL:No Clubbing/cyanosis;muscles-grossly intact. Right heel wound. Fluid blister right lower extremity with edema NEUROLOGICAL: Cranial nerves grossly intact; no facial asymmetry, power and sensation grossly intact. INVESTIGATIONS, reviewed in the clinical context: Doppler ultrasound right lower extremity: Negative for DVT December 5: White count 9.9 hemoglobin 8.5 potassium 4.6 BUN 41 and creatinine 1.65 December 3: Sodium 141 potassium 4.2 BUN 40 creatinine 1.7 to December 2: White count 14 hemoglobin 8.4 platelets 349 potassium 5.4 BUN 38 creatinine 2.02 procalcitonin 0.23 I 25. Transferrin 102. Ferritin 701. B12 475 White count 13.3 hemoglobin 8.3 platelets 336 potassium 4.6 BUN 33 creatinine 1 .75 CRP 21.2 Troponin I 0.020, 0.017 COVID 19/influenza type A/influenza type B: Not detected EKG tracing personally reviewed by me-normal sinus rhythm. Chest x-ray film personally reviewed by me-underexposed. Patchy infiltrates Previous labs: Creatinine 1.6 on November 09 2-D echocardiogram: EF 60 have a 65% Assessment and plan: -Acute severe COPD exacerbation in a previous smoker: Improvement DuoNeb 4 times a day. Pulmicort nebulizer twice a day. Prednisone 10 mg -Sepsis with blood cultures positive from November 30 with enterococcus faeecium/VRE Repeat blood cultures negative -Possible pneumonia suspected gram-negative organism/aspiration: Improved -Right heel diabetic wound negative for osteomyelitis per MRI. Recent debridement. Culture positive for Acinetobacter, MRSA Continue Unasyn, IV daptomycin. Follow with ID -Acute on chronic hypoxic respiratory failure from COPD/pneumonia possible fluid overload BiPAP. Patient was discharged on 5 L oxygen. -Normocytic anemia/iron deficiency anemia IV Ferrlecit. -Chronic kidney disease stage III likely diabetic nephropathy and hypertensive nephrosclerosis Creatinine 1.68 on November 09 -Diabetes mellitus type 2, chronically on insulin: Uncontrolled with hyperglycemia secondary to steroids Received insulin drip. Levemir 30 units. 10 units with meals Humalog. Sliding scale. -Essential hypertension Coreg 12.5 mg twice a day hydralazine 100 mg 3 times a day -Diabetic peripheral neuropathy: Neurontin total of 400 mg a day -Restless leg syndrome: Uncontrolled Requip 0.5 mg by mouth 3 times a day -Left below-knee amputation -Full code Awaiting response from insurance company to the appeal. Discussed with ed case manager. IV Bumex added. Kerlix and Mark wrap to right lower extremity.
[2021-12-10 20:24] LABS: Glucose,Whole Blood 252 mg/dL (75-99)
[2021-12-10] MEDS: INSULIN DETEMIR (LEVEMIR) 100 UNIT/ML SYR SQ SCH (21:11)
--- NOTE | 2021-12-10 21:45 | P.PN ---
Subjective Progress Note Date: 12/10/21 Principal diagnosis: Right heel diabetic foot infection and bacteremia Patient is a 61-year-old male with a recent diagnosis of right heel osteomyelitis on the basis of wound tracking down to the wound at the time of debridement culture were positive for Acinetobacter and MRSA, patient treated with Unasyn and daptomycin presenting back to the hospital with the acute r espiratory failure. On today's evaluation that is 12/10/2021, the patient remains to be afebrile, th e patient is breathing comfortably on nasal cannula oxygen , the patient denies chest pain , the patient cough is decreased intensity and less productive, the patient denies abdominal pain and no diarrhea Objective - Vital Signs Vital signs: Vital Signs Temp 98.1 F 12/10/21 07:40 Pulse 95 12/10/21 08:10 Resp 19 12/10/21 08:10 BP 182/84 12/10/21 07:40 Pulse Ox 98 12/10/21 07:40 Intake & Output 12/09/21 12/10/21 12/10/21 18:59 06:59 18:59 Output Total 325 Balance -325 Output: Urine 325 Other: Voiding Method Urinal # Voids 5 2 # Bowel Movements 2 3 - Exam GENERAL DESCRIPTION: Middle-age male lying in bed in no distress RESPIRATORY SYSTEM: Unlabored breathing , decreased breath sounds at bases HEART: S1 S2 regular rate and rhythm , ABDOMEN: Soft , no tenderness EXTREMITIES: Right heel wound is currently dressed no drainage on the dressings - Labs CBC & Chem 7: 12/06/21 05:04 12/06/21 05:04 Labs: Abnormal Lab Results - Last 24 Hours (Table) 12/09/21 12/09/21 12/09/21 Range/Units 11:36 17:01 21:11 POC Glucose (mg/dL) 278 H 251 H 191 H (75-99) mg/dL 12/10/21 Range/Units 06:57 POC Glucose (mg/dL) 162 H (75-99) mg/dL Assessment and Plan (1) Diabetic infection of right foot Current Visit: Yes Status: Acute Code(s): E11.628 - TYPE 2 DIABETES MELLITUS WITH OTHER SKIN COMPLICATIONS; L08.9 - LOCAL INFECTION OF THE SKIN AND SUBCUTANEOUS TISSUE, UNSP SNOMED Code(s): 26808457 Plan: 1patient with her right heel diabetic foot infection in this patient who is status post surgical debridement and culture positive for MRSA anaerobes and Acinetobacter the patient seem to have clinically responded as the patient right heel wound has decrease in size and does not look that deep with no surrounding redness and x-rays were negative for any osteomyelitis. 2patient with a positive blood culture with VRE concern for possible PICC related, however repeat blood culture has been negative 3patient have shown clinical improvement and the patient will continue with Unasyn and daptomycin to finish a 6 week course of therapy , patient is currently waiting for skilled nursing placement for completion of his antibiotic therapy 4local wound care to the right heel wound with the Medihoney followed by moist dressing keep the area of the pressure. Time with Patient: Less than 30
[2021-12-11 01:03] VITALS: RESP 19
[2021-12-11] MEDS: LORazepam 0.5 MG TAB PO PRN (01:52)
[2021-12-11] MEDS: ACETAMINOPHEN TAB 500 MG TAB PO PRN ×2 (03:38→11:42)
[2021-12-11] MEDS: AMPICILLIN-SULBACTAM 3 GM in SODIUM CHLORIDE 0.9% 100 ML IVPB SCH (06:04)
[2021-12-11 06:42] LABS: Glucose,Whole Blood 241 mg/dL (75-99)
[2021-12-11 08:22] VITALS: BP 152/76; TEMP 97.8
[2021-12-11] MEDS: IPRATROPIUM-ALBUTEROL 3 ML NEB INHALATION SCH ×2 (08:56→13:00)
[2021-12-11] MEDS: BUDESONIDE 1 MG/2 ML NEBU INHALATION SCH (08:56)
[2021-12-11] MEDS ORDERED: BUMETANIDE 0.25 MG/ML 10 ML VIAL IV SCH (09:00)
[2021-12-11 09:01] VITALS: PULSE 98
[2021-12-11] MEDS: TICAGRELOR 90 MG TAB PO SCH (09:20)
[2021-12-11] MEDS: INSULIN ASPART (NovoLOG) 100 UNIT/ML VIAL SQ SCH ×4 (09:20→13:15)
[2021-12-11] MEDS: hydrALAZINE HCL 50 MG TAB PO SCH (09:20)
[2021-12-11] MEDS: GABAPENTIN 100 MG CAP PO SCH (09:20)
[2021-12-11] MEDS: predniSONE 10 MG TAB PO SCH (09:20)
[2021-12-11] MEDS: ENOXAPARIN 40 MG/0.4 ML SYRINGE SQ SCH (09:20)
[2021-12-11] MEDS: levETIRAcetam 500 MG TAB PO SCH (09:20)
[2021-12-11] MEDS: carvediloL 12.5 MG TAB PO SCH (09:20)
[2021-12-11 09:35] LABS: African American GFR (CKD) 44 (>60 ml/min/1.73 sqM); Anion Gap 8 mmol/L; Blood Urea Nitrogen 41 mg/dL (9-20); Calcium 7.8 mg/dL (8.4-10.2); Carbon Dioxide 26 mmol/L (22-30); Chloride 106 mmol/L (98-107); Glucose 162 mg/dL (74-99); Non-African American GFR(CKD) 38 (>60 ml/min/1.73 sqM); Potassium 5.5 mmol/L (3.5-5.1); Sodium 140 mmol/L (137-145)
[2021-12-11 11:08] LABS: Glucose,Whole Blood 171 mg/dL (75-99)
--- NOTE | 2021-12-11 11:15 | P.PN ---
Subjective Progress Note Date: 12/11/21 Principal diagnosis: Right heel diabetic foot infection and bacteremia Patient is a 61-year-old male with a recent diagnosis of right heel osteomyelitis on the basis of wound tracking down to the wound at the time of debridement culture were positive for Acinetobacter and MRSA, patient treated with Unasyn and daptomycin presenting back to the hospital with the acute r espiratory failure. On today's evaluation that is 12/11/2021, the patient denies any fever or any ch ills, the patient is breathing comfortably on nasal cannula oxygen , the patient denies chest pain , the patient cough is decreased intensity and less productive, the patient denies abdominal pain and no diarrhea, patient was noticed to have a more swelling and blister formation and redness of the right leg for the patient did have a Doppler ultrasound was negative for DVT Objective - Vital Signs Vital signs: Vital Signs Temp 97.8 F 12/11/21 08:00 Pulse 98 12/11/21 09:10 Resp 19 12/11/21 01:02 BP 152/76 12/11/21 08:00 Pulse Ox 97 12/11/21 08:56 Intake & Output 12/10/21 12/11/21 12/11/21 18:59 06:59 18:59 Intake Total 1800 700 Output Total 850 Balance 1800 -150 Intake: Intake, IV Titration 200 Amount Ampicillin-Sulbactam 3 gm 100 In Sodium Chloride 0.9% 100 ml @ 200 mls/hr IVPB Q6HR [facility] Rx#:[id number] DAPTOmycin 600 mg In 100 Sodium Chloride 0.9% 50 ml @ 100 mls/hr IVPB Q24H [facility] Rx#:[id number] Oral 1800 500 Output: Urine 850 Other: Voiding Method Urinal Urinal # Bowel Movements 1 1 - Exam GENERAL DESCRIPTION: Middle-age male lying in bed in no distress RESPIRATORY SYSTEM: Unlabored breathing , decreased breath sounds at bases HEART: S1 S2 regular rate and rhythm , ABDOMEN: Soft , no tenderness EXTREMITIES: Right lower extremity did have some swelling redness ruptured blister, right heel wound is currently dressed no drainage on the dressings - Labs CBC & Chem 7: 12/06/21 05:04 12/11/21 08:09 Labs: Abnormal Lab Results - Last 24 Hours (Table) 12/10/21 12/10/21 12/10/21 Range/Units 11:07 15:54 20:17 Potassium (3.5-5.1) mmol/L BUN (9-20) mg/dL Creatinine (0.66-1.25) mg/dL Glucose (74-99) mg/dL POC Glucose (mg/dL) 297 H 355 H 252 H (75-99) mg/dL Calcium (8.4-10.2) mg/dL 12/11/21 12/11/21 12/11/21 Range/Units 06:38 08:09 11:07 Potassium 5.5 H (3.5-5.1) mmol/L BUN 41 H (9-20) mg/dL Creatinine 1.86 H (0.66-1.25) mg/dL Glucose 162 H (74-99) mg/dL POC Glucose (mg/dL) 241 H 171 H (75-99) mg/dL Calcium 7.8 L (8.4-10.2) mg/dL Assessment and Plan (1) Diabetic infection of right foot Current Visit: Yes Status: Acute Code(s): E11.628 - TYPE 2 DIABETES MELLITUS WITH OTHER SKIN COMPLICATIONS; L08.9 - LOCAL INFECTION OF THE SKIN AND SUBCUTANE OUS TISSUE, UNSP SNOMED Code(s): 10964365 Plan: 1patient with her right heel diabetic foot infection in this patient who is status post surgical debridement and culture positive for MRSA anaerobes and Acinetobacter the patient seem to have clinically responded as the patient right heel wound has decrease in size and does not look that deep with no surrounding redness and x-rays were negative for any osteomyelitis. 2patient with a positive blood culture with VRE concern for possible PICC related, however repeat blood culture has been negative 3patient have shown clinical improvement and the patient will continue with Unasyn and daptomycin to finish a 6 week course of therapy , patient is currently waiting for custodial placement for completion of his antibiotic therapy 4local wound care to the right heel wound with the Medihoney followed by moist dressing keep the area of the pressure. 5right lower extremity swelling more likely fluid related as the patient not running a fever or elevated white count Doppler was negative for DVT we will apply Aquacel silver to the open area and mild ACEwrap for compression to keep the swelling down Time with Patient: Less than 30
[2021-12-11] MEDS ORDERED: SODIUM ZIRCONIUM CYCLOSILICATE 10 GM PACKET PO ONE (11:30)
--- NOTE | 2021-12-11 11:34 | P.DS ---
Providers Date of admission: 12/01/21 00:29 Expected date of discharge: 12/11/21 Attending physician: Graham He Consults: 12/01/21 00:33 Consult Physician ONCE Consulting Provider: Teri Chaudhari Consult Reason/Comments: Respiratory distress Do you want consulting provider notified?: Yes, Notify in am Consult Physician Urgent Consulting Provider: Estefanía Zhu Consult Reason/Comments: Diabetic foot infection Do you want consulting provider notified?: Yes, Notify in am 12/04/21 13:54 Consult Physician Routine Consulting Provider: Anesthesia,Services Consult Reason/Comments: pain management Do you want consulting provider notified?: Yes Primary care physician: Jeffrey Smalls [facility] Course: Chief Complaint: Shortness of breath This is a 61-year-old patient, now following with Dr. Smalls and [facility]. Patient was previously living in [place] then it moved to [place] for to 3 months. When patient came back and got admitted here because the daughter lives in town. Chronic stable medical conditions include diabetes, hypertension, left below- knee amputation. Patient was recently admitted to the hospital on 11/09/2021 with a right foot nonhealing ulcer. Had been a smoker up to recently. Wound on right heel, wound cultures were positive for Acinetobacter and MRSA. MRI was negative for osteomyelitis. Patient was discharged and IV Unasyn and daptomycin. Patient was discharged on ER and BiPAP. He had desaturated there and he was transferred as patient became short of breath. And was readmitted. Plan was patient received few weeks of antibiotics. Patient admitted with shortness of breath. Some cough. No sputum. No fever no chills. Some wheezing. Did feel a bit better with bronchodilators. Steroids. Admitted with acute COPD exacerbation, pneumonia, right heel wound. IV Unasyn daptomycin continued. Bronchodilators. Steroids. For neuropathic pain patient Neurontin was increased. Patient also seen by pain services. Patient given diuretics for fluid overload. Right lower extremity wound care per Sayed from ID. Patient is initially rejected by the insurance company for rehab then on appeal they've accepted the patient. December 11: Patient's prednisone is being tapered off. Potassium elevated. Lokelma ordered. Fluid restriction 800 mL to continue. Accepted at [facility]. Patient will follow-up with nephrology and ID. For wound care Discussion and discharge planning more than 35 minutes Past medical history to include: Stroke, diabetes, hypertension, left below-knee amputation, right heel wound Social history: [facility], smoked 2 packs a day for 45 years up to 3 weeks ago. No alcohol. . 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 Conjunctiva normal. HEENT: External appearance of nose and ears normal, oral cavity grossly normal. NECK: JVD not raised; masses not palpable. HEART: First and second heart sounds are normal; no edema. LUNGS: Respiratory rate increased; decreased breath sounds ABDOMEN: Soft, nontender, liver spleen not palpable, no masses palpable. PSYCH: Alert and oriented x3; mood and affect anxious. MUSCULOSKELETAL:No Clubbing/cyanosis;muscles-grossly intact. EXTREMITIES: Right heel wound. Fluid blister right lower extremity with edema NEUROLOGICAL: Cranial nerves grossly intact; no facial asymmetry, power and sensation grossly intact. INVESTIGATIONS, reviewed in the clinical context: December 11: Potassium 5.5 BUN 41 creatinine 1.86 Doppler ultrasound right lower extremity: Negative for DVT December 06: White count 9.9 hemoglobin 8.5 potassium 4.6 BUN 41 and creatinine 1.65 December 3: Sodium 141 potassium 4.2 BUN 40 creatinine 1.7 to December 2: White count 14 hemoglobin 8.4 platelets 349 potassium 5.4 BUN 38 creatinine 2.02 procalcitonin 0.23 I 25. Transferrin 102. Ferritin 701. B12 475 White count 13.3 hemoglobin 8.3 platelets 336 potassium 4.6 BUN 33 creatinine 1.75 CRP 21.2 Troponin I 0.020, 0.017 COVID 19/influenza type A/influenza type B: Not detected EKG tracing personally reviewed by me-normal sinus rhythm. Chest x-ray film personally reviewed by me-underexposed. Patchy infiltrates Previous labs: Creatinine 1.6 on November 09 2-D echocardiogram: EF 60 have a 65% Assessment and plan: -Acute severe COPD exacerbation in a previous smoker: Improvement DuoNeb 4 times a day. Pulmicort nebulizer twice a day. Prednisone discontinued -Sepsis with blood cultures positive from November 30 with enterococcus faeecium/VRE Repeat blood cultures negative -Possible pneumonia suspected gram-negative organism/aspiration: Improved -Right heel diabetic wound negative for osteomyelitis per MRI. Recent debridement. Culture positive for Acinetobacter, MRSA Continue Unasyn, IV daptomycin. Did complete a total of 6 weeks. -Acute on chronic hypoxic respiratory failure from COPD/pneumonia possible fluid overload BiPAP. FiO2 being tapered down currently on 4 L of oxygen. -Normocytic anemia/iron deficiency anemia IV Ferrlecit. -Chronic kidney disease stage III likely diabetic nephropathy and hypertensive nephrosclerosis Creatinine 1.68 on November 09 -Diabetes mellitus type 2, chronically on insulin: Uncontrolled with hyperglycemia secondary to steroids Received insulin drip. Levemir 30 units. 10 units with meals Humalog. Sliding scale. -Essential hypertension Coreg 12.5 mg twice a day hydralazine 100 mg 3 times a day -Diabetic peripheral neuropathy: Neurontin total of 400 mg a day -Restless leg syndrome: Uncontrolled Requip 0.5 mg by mouth 3 times a day -Left below-knee amputation -Full code Disposition: Rehab at [facility] on CBC BMP: 12/12/2021 Plan - Discharge Summary Discharge Rx Participant: No New Discharge Prescriptions: New Gabapentin [Neurontin] 100 mg PO DAILY 3 Days #3 cap Ipratropium-Albuterol Nebulize [Duoneb 0.5 mg-3 mg/3 ml Soln] 3 ml INHALATION TID ml Budesonide [Pulmicort] 1 mg INHALATION RT-BID ml rOPINIRole HCL [Requip] 0.5 mg PO TID #9 tab Acetaminophen Tab [Tylenol] 1,000 mg PO Q6HR PRN tab PRN Reason: Fever And/ Or Pain Gabapentin [Neurontin] 300 mg PO HS #3 cap Continue levETIRAcetam [Keppra] 1,000 mg PO BID Carvedilol [Coreg] 12.5 mg PO BID-W/MEALS DAPTOmycin [Daptomycin] 500 mg IV DAILY 27 Days #27 each Tamsulosin [Flomax] 0.4 mg PO PC-BRKFST #30 Ticagrelor [Brilinta] 90 mg PO BID Ketoconazole 2% Shampoo [Nizoral] 1 applic TOPICAL DIRECTED Ampicillin-Sulbactam [Unasyn] 3 gm IVPB Q6HR 27 Days #108 each hydrALAZINE HCL [Apresoline] 100 mg PO TID 30 Days #90 tab Bumetanide [BUMEX] 1 mg PO BID 30 Days #60 tablet Changed Insulin Lispro [humaLOG Kwikpen] 10 units SQ AC-TID 30 Days #6 ml Insulin Detemir (Levemir) [Levemir] 34 unit SQ HS 30 Days #6 ml Discontinued Gabapentin [Neurontin] 100 mg PO BID 30 Days #60 cap Insulin Detemir (Levemir) [Levemir] 20 unit SQ DAILY@0700 30 Days #6 ml Discharge Medication List Carvedilol [Coreg] 12.5 mg PO BID-W/MEALS 11/09/21 [History] Ketoconazole 2% Shampoo [Nizoral] 1 applic TOPICAL DIRECTED 11/09/21 [History] Ticagrelor [Brilinta] 90 mg PO BID 11/09/21 [History] levETIRAcetam [Keppra] 1,000 mg PO BID 11/09/21 [History] Ampicillin-Sulbactam [Unasyn] 3 gm IVPB Q6HR 27 Days #108 each 11/30/21 [Rx] Bumetanide [BUMEX] 1 mg PO BID 30 Days #60 tablet 11/30/21 [Rx] DAPTOmycin [Daptomycin] 500 mg IV DAILY 27 Days #27 each 11/30/21 [Rx] Tamsulosin [Flomax] 0.4 mg PO PC-BRKFST #30 11/30/21 [Rx] hydrALAZINE HCL [Apresoline] 100 mg PO TID 30 Days #90 tab 11/30/21 [Rx] Acetaminophen Tab [Tylenol] 1,000 mg PO Q6HR PRN tab 12/05/21 [Rx] Budesonide [Pulmicort] 1 mg INHALATION RT-BID ml 12/05/21 [Rx] Insulin Detemir (Levemir) [Levemir] 34 unit SQ HS 30 Days #6 ml 12/05/21 [Rx] Insulin Lispro [humaLOG Kwikpen] 10 units SQ AC-TID 30 Days #6 ml 12/05/21 [Rx] Ipratropium-Albuterol Nebulize [Duoneb 0.5 mg-3 mg/3 ml Soln] 3 ml INHALATION TID ml 12/05/21 [Rx] rOPINIRole HCL [Requip] 0.5 mg PO TID #9 tab 12/05/21 [Rx] Gabapentin [Neurontin] 100 mg PO DAILY 3 Days #3 cap 12/11/21 [Rx] Gabapentin [Neurontin] 300 mg PO HS #3 cap 12/11/21 [Rx] Follow up Appointment(s)/Referral(s): Jeffrey Smalls DO [Primary Care Provider] - 1-2 days Estefanía Zhu MD [STAFF PHYSICIAN] - 01/01/22 1:30 pm [facility] [NON-STAFF] - (Can let you borrow a Wheelchair when you are discharged from rehab.) Patient Instructions/Handouts: Heart Failure (DC) Activity/Diet/Wound Care/Special Instructions: get f/u orders/BIPAP orders from pulmonary wound care orders per ID Please download [facility] [facility] on your phone to help with the mind per Dr. He
[2021-12-11] MEDS ORDERED: AMPICILLIN-SULBACTAM 3 GM in SODIUM CHLORIDE 0.9% 100 ML IVPB SCH (14:00)
--- NOTE | 2021-12-13 07:37 | CDI ---
Documentation Clarification Form Date: 12/13/21 From: Maddy Green Admit Date: 12/01/2021 12:29:00 AM Patient Name: Rahul Rizvi Visit Number: [id number] Discharge Date: 12/11/2021 03:24:00 PM ATTENTION: The Clinical Documentation Specialists (CDI) and [facility] Coding Staff appreciate your assistance in clarifying documentation. Please respond to the clarification below the line at the bottom and electronically sign. The CDI & [facility] Coding staff will review the response and follow-up if needed. Please note: Queries are made part of the Legal Health Record. If you have any questions, please contact the author of this message via ITS. Dr. Graham He, Your patient has elevated potassium stated in your discharge summary. Based on this information and the findings below, is there an additional diagnosis that is clinically appropriate for this patient? Patient history/risk factors: HTN w CKD III, enterococcus sepsis, gm neg/aspiration pneumonia, AECOPD, acute on chronic diastolic CHF, DM foot ulcer with infection, s/p BKA-left Clinical Indicators: Potassium 5/2-5.4, 5/5-5.5 Treatment: Lokelma po 10 mg on 12/11 Is there an additional diagnosis that is clinically appropriate for this patient? [ ] Hyperkalemia [ ] Other, please specify [ ] Unable to determine Hyperkalemia MTDD
== END 2021-12-11 15:24 | DRG 871 ==
LOC: EC 20:25 → 3SCARD 12-01 00:29 → 4SSUR 12-04 22:52
PROVIDERS: ADMIT Hospitalist; ATTEND Hospitalist
PROC: 5A09557 Assistance with Respiratory Ventilation, Greater than 96 Consecutive Hours, Continuous Positive Airway Pressure (ICD-10-PCS; principal; 2021-12-01)
DX: A41.81 Sepsis due to Enterococcus (principal); J15.6 Pneumonia due to other Gram-negative bacteria; J69.0 Pneumonitis due to inhalation of food and vomit; I50.33 Acute on chronic diastolic (congestive) heart failure; J96.21 Acute and chronic respiratory failure with hypoxia; J44.0 Chronic obstructive pulmonary disease with (acute) lower respiratory infection; E87.2 Acidosis; L97.419 Non-pressure chronic ulcer of right heel and midfoot with unspecified severity; I13.0 Hypertensive heart and chronic kidney disease with heart failure and stage 1 through stage 4 chronic kidney disease, or unspecified chronic kidney disease; J44.1 Chronic obstructive pulmonary disease with (acute) exacerbation; J98.11 Atelectasis; N17.9 Acute kidney failure, unspecified; D63.1 Anemia in chronic kidney disease; E11.22 Type 2 diabetes mellitus with diabetic chronic kidney disease; E11.628 Type 2 diabetes mellitus with other skin complications; E11.621 Type 2 diabetes mellitus with foot ulcer; E11.51 Type 2 diabetes mellitus with diabetic peripheral angiopathy without gangrene; E11.42 Type 2 diabetes mellitus with diabetic polyneuropathy; E11.65 Type 2 diabetes mellitus with hyperglycemia; N18.30 Chronic kidney disease, stage 3 unspecified; G40.909 Epilepsy, unspecified, not intractable, without status epilepticus; Z79.4 Long term (current) use of insulin; Z89.512 Acquired absence of left leg below knee; Z20.822 Contact with and (suspected) exposure to COVID-19; G54.6 Phantom limb syndrome with pain; L08.9 Local infection of the skin and subcutaneous tissue, unspecified; B95.62 Methicillin resistant Staphylococcus aureus infection as the cause of diseases classified elsewhere; B96.89 Other specified bacterial agents as the cause of diseases classified elsewhere; E87.5 Hyperkalemia; D50.9 Iron deficiency anemia, unspecified; T38.0X5A Adverse effect of glucocorticoids and synthetic analogues, initial encounter; F41.9 Anxiety disorder, unspecified; S80.821A Blister (nonthermal), right lower leg, initial encounter; G25.81 Restless legs syndrome; M77.30 Calcaneal spur, unspecified foot; F17.211 Nicotine dependence, cigarettes, in remission; Z71.6 Tobacco abuse counseling; E66.9 Obesity, unspecified; Z68.30 Body mass index [BMI] 30.0-30.9, adult; Z79.02 Long term (current) use of antithrombotics/antiplatelets; Z79.2 Long term (current) use of antibiotics; Z79.899 Other long term (current) drug therapy; Z86.73 Personal history of transient ischemic attack (TIA), and cerebral infarction without residual deficits; Z71.3 Dietary counseling and surveillance
CPT/HCPCS: 36415; 36600; 71045; 80048; 80053; 82140; 82607; 82728; 82805; 83540; 83550; 83605; 83735; 83880; 84145; 84484; 85025; 85379; 85610; 85652; 85730; 86140; 87040; 87077; 87186; 87502; 87635; 93005; 94640; 94660; 94760; 96365; 96366; 96375; 96376; 99285

== ENCOUNTER 2021-12-18 07:29 | Inpatient (IN) | payer MEDICARE ==
[2021-12-18] MEDS ORDERED: MORPHINE SULFATE 4 MG/ML SYRINGE IV STA (07:57)
--- NOTE | 2021-12-18 07:59 | ED ---
General Adult HPI - General Chief complaint: Altered Mental Status Stated complaint: altered mental status Time Seen by Provider: 12/18/21 07:41 Source: EMS Mode of arrival: EMS Limitations: altered mental status - History of Present Illness Initial comments: Dictation was produced using [employer] dictation software. please excuse any grammatical, word or spelling errors. Chief Complaint: 61-year-old male presents emergency department for altered mental status History of Present Illness: 61-year-old male used sent in from any neurologic port neuron. He is brought to the emergency department via EMS. Patient allegedly is here for altered mental status. Report was received from nursing receive report from EMS. Allegedly patient is here for altered mental status because he is refusing his medications. Patient refuses Lasix doses of antibiotics. Patient is discharged from the hospital 10 days ago. He is on antibiotics for diabetic wound. Patient allegedly prescribed daptomycin and Unasyn. Patient states that he has total body pain. He has no other complaints besides that. The ROS documented in this emergency department record has been reviewed and confirmed by me. Those systems with pertinent positive or negative responses have been documented in the HPI. All other systems are other negative and/or noncontributory. PHYSICAL EXAM: General Impression: Alert and oriented x3, acute distress secondary total body pain HEENT: Normocephalic atraumatic, extra-ocular movements intact, pupils equal and reactive to light bilaterally, mucous membranes moist. Cardiovascular: Heart regular rate and rhythm Chest: Able to complete full sentences, no retractions, no tachypnea Abdomen: abdomen soft, non-tender, non-distended, no organomegaly Musculoskeletal: Amputation of the left lower extremity, admitted once to the right lower extremity Motor: no focal deficits noted Neurological: CN II-XII grossly intact, no focal motor or sensory deficits noted Skin: Diffuse skin dermatitis Psych: Normal affect and mood ED course: 61-year-old male presents emergency department for refusing his IV antibiotics. Patient is currently a resident [facility]. He was recently admitted to the hospital discharge for continued treatment of diabetic foot wound of the right lower extremity. Vital signs upon arrival are within acceptable limits. Laboratory evaluation obtained. CBC shows hemoglobin of 7.0. This appears to be around the lower end of patient's hemoglobin levels. Metabolic panel shows c urrently 1.92 with a BUN of 38. Patient has history of elevated renal markers. Pending urine studies. Chest x-ray shows perhaps CHF exacerbation. Computed tomography scan of the brain shows no subacute appearing right parietal frontal cortical infarct. Radiology is recommending MRI. Given patient was sent here for concerns of altered mental status. Perhaps patient's deficit is behavioral changes. Nonetheless patient is a candidate for thrombolytics. Patient given aspirin. Patient be admitted to Dr. He with consultation to neurology and infectious disease patient given dose of Unasyn and daptomycin. EKG interpretation: Ventricular rate 102, sinus tachycardia,. 143, care is 85, QTC 41. No FL prolongation, no QTC prolongation, no ST or T-wave changes noted. EKG compared to 11/30/2021 showing no changes. Overall, this EKG is unremarkable - Related Data Home Medications Medication Instructions Recorded Confirmed Carvedilol [Coreg] 12.5 mg PO BID 11/09/21 12/18/21 Ketoconazole 2% Shampoo [Nizoral] 1 applic TOPICAL WESA 11/09/21 12/18/21 Ticagrelor [Brilinta] 90 mg PO BID 11/09/21 12/18/21 Acetaminophen Tab [Tylenol] 650 mg PO Q6H PRN 12/18/21 12/18/21 DAPTOmycin [Cubicin] 500 mg IV HS 12/18/21 12/18/21 Insulin Detemir (Levemir) [Levemir] 10 unit SQ HS 12/18/21 12/18/21 Ipratropium-Albuterol Nebulize 3 ml INHALATION RT-Q8H 12/18/21 12/18/21 [Duoneb 0.5 mg-3 mg/3 ml Soln] hydrALAZINE HCL [Apresoline] 100 mg PO BID 12/18/21 12/18/21 levETIRAcetam [Keppra] 1,000 mg PO BID@0800,2000 12/18/21 12/18/21 oxyCODONE-APAP 10-325MG [Percocet 1 tab PO Q4H PRN 12/18/21 12/18/21 10-325 mg] rOPINIRole HCL [Requip] 0.5 mg PO TID@0500,1300,2100 12/18/21 12/18/21 Previous Rx's Medication Instructions Recorded Ampicillin-Sulbactam [Unasyn] 3 gm IVPB Q6HR 27 Days #108 each 11/30/21 Bumetanide [BUMEX] 1 mg PO BID 30 Days #60 tablet 11/30/21 Tamsulosin [Flomax] 0.4 mg PO PC-BRKFST #30 11/30/21 Budesonide [Pulmicort] 1 mg INHALATION RT-BID ml 12/05/21 Insulin Lispro [humaLOG Kwikpen] 10 units SQ AC-TID 30 Days #6 ml 12/05/21 Gabapentin [Neurontin] 100 mg PO DAILY 3 Days #3 cap 12/11/21 Gabapentin [Neurontin] 300 mg PO HS #3 cap 12/11/21 Allergies Allergy/AdvReac Type Severity Reaction Status Date / Time No Known Allergies Allergy Verified 12/18/21 08:10 Review of Systems ROS Statement: Those systems with pertinent positive or pertinent negative responses have been documented in the HPI. ROS Other: All systems not noted in ROS Statement are negative. 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), MRSA, VRE Date of last positivie culture/infection: 11/30/21 VRE; 11/11/21-MRSA MDRO Source:: Blood-VRE; Right heel-MRSA & MDRO Additional Past Surgical History / Comment(s): BKA right leg Past Anesthesia/Blood Transfusion Reactions: No Reported Reaction Past Psychological History: No Psychological Hx Reported Smoking Status: Current every day smoker Past Alcohol Use History: None Reported Past Drug Use History: None Reported General Exam Limitations: altered mental status Course Vital Signs 12/18/21 12/18/21 07:40 09:43 Temperature 99.3 F Pulse Rate 106 H 98 Respiratory 18 18 Rate Blood Pressure 152/78 158/74 O2 Sat by Pulse 96 96 Oximetry Medical Decision Making - Lab Data Result diagrams: 12/18/21 07:58 12/18/21 07:58 Lab Results 12/18/21 12/18/21 12/18/21 Range/Units 07:58 07:58 07:58 WBC 8.3 (3.8-10.6) k/uL RBC 2.52 L (4.30-5.90) m/uL Hgb 7.0 L D (13.0-17.5) gm/dL Hct 23.9 L (39.0-53.0) % MCV 94.5 (80.0-100.0) fL MCH 27.6 (25.0-35.0) pg MCHC 29.2 L (31.0-37.0) g/dL RDW 15.5 (11.5-15.5) % Plt Count 256 (150-450) k/uL MPV 7.1 Neutrophils % 75 % Lymphocytes % 9 % Monocytes % 8 % Eosinophils % 4 % Basophils % 0 % Neutrophils # 6.3 (1.3-7.7) k/uL Lymphocytes # 0.8 L (1.0-4.8) k/uL Monocytes # 0.7 (0-1.0) k/uL Eosinophils # 0.4 (0-0.7) k/uL Basophils # 0.0 (0-0.2) k/uL Hypochromasia Marked Sodium 141 (137-145) mmol/L Potassium 5.3 H (3.5-5.1) mmol/L Chloride 110 H (98-107) mmol/L Carbon Dioxide 22 (22-30) mmol/L Anion Gap 9 mmol/L BUN 38 H (9-20) mg/dL Creatinine 1.92 H (0.66-1.25) mg/dL Est GFR (CKD-EPI)AfAm 43 (>60 ml/min/1.73 sqM) Est GFR (CKD-EPI)NonAf 37 (>60 ml/min/1.73 sqM) Glucose 157 H (74-99) mg/dL Plasma Lactic Acid Donny 0.9 (0.7-2.0) mmol/L Calcium 8.2 L (8.4-10.2) mg/dL Disposition Clinical Impression: CVA (cerebral vascular accident), Cellulitis Disposition: ADMITTED IP TO THIS HOSP Condition: Serious Referrals: Jeffrey Smalls DO [Primary Care Provider] - 1-2 days Decision Time: 10:35
[2021-12-18] MEDS ORDERED: AMPICILLIN-SULBACTAM 3 GM VIAL IVPB SCH (08:00)
[2021-12-18] MEDS ORDERED: AMPICILLIN-SULBACTAM 3 GM in SODIUM CHLORIDE 0.9% 100 ML IVPB STA (08:03)
[2021-12-18 08:18] LABS: Basophils % (A) 0 %; Eosinophils # (A) 0.4 k/uL (0-0.7); Eosinophils % (A) 4 %; HCT 23.9 % (39.0-53.0); Hypochromasia Marked; Lymphocytes # (A) 0.8 k/uL (1.0-4.8); Lymphocytes % (A) 9 %; MCH 27.6 pg (25.0-35.0); MCHC 29.2 g/dL (31.0-37.0); MCV 94.5 fL (80.0-100.0); Mean Platelet Volume 7.1; Monocytes # (A) 0.7 k/uL (0-1.0); Monocytes % (A) 8 %; Neutrophils # (A) 6.3 k/uL (1.3-7.7); Neutrophils % (A) 75 %; Platelet Count 256 k/uL (150-450); RBC 2.52 m/uL (4.30-5.90); RDW 15.5 % (11.5-15.5); WBC 8.3 k/uL (3.8-10.6)
[2021-12-18 08:27] LABS: Calcium 8.2 mg/dL (8.4-10.2); Potassium 5.3 mmol/L (3.5-5.1)
[2021-12-18] MEDS ORDERED: NON FORMULARY DRUG (Daptomycin [Daptomycin] 350 MG Each) IV SCH (09:00)
--- NOTE | 2021-12-18 09:03 | XR ---
EXAMINATION TYPE: XR chest 1V portable DATE OF EXAM: 12/18/2021 Comparison: 12/03/2021 Clinical History: 61-year-old male confusion, ams Findings: Heart is mildly enlarged. Slightly low lung volumes. Right PICC tip probably in the region of the upp er SVC. Interstitial opacities persist. Some subtle linear density projects along the lateral aspect of the right thoracoabdominal junction. Impression: 1. Cardiomegaly and interstitial opacities persist compared to 12/03/2021. Consider CHF with mild inter stitial pulmonary edema. Correlate to exclude atypical pneumonias. 2. Some type of linear density projects along the lateral aspect of the right thoracoabdominal juncti on. Correlate as to etiology.
[2021-12-18] MEDS ORDERED: HYDROmorphone 0.5 MG/0.5 ML SYRINGE IVP STA (09:32)
--- NOTE | 2021-12-18 09:35 | CT ---
EXAMINATION TYPE: CT brain wo con DATE OF EXAM: 12/18/2021 COMPARISON: None INDICATION: Altered mental status. DLP: 1260.4 mGycm, Automated exposure control for dose reduction was used. CONTRAST: None CT of the brain is performed utilizing 3 mm thick sections through the posterior fossa and 3 mm thick sections through the remaining calvarium. Study is performed within 24 hours of arrival to the hosp ital. No abnormal hyperdensity is present to suggest an acute intracranial hemorrhage. No mass lesion is evident. No acute infarcts are evident. Hypodensity is along the right sylvian fissure. Clinical consideration for cortical infarct in the right frontal parietal region is recommended. Example image 46. Consider MRI follow-up. There is some periventricular white matter hypodensity more likely related to chronic white matter ischemic changes. Ventricles and sulci are prominent for the patient age. Tiny retention cyst within the inferior medial left maxillary sinus. Right septal deviation is presen t. There is mucosal thickening within the posterior right maxillary sinus. Retention cysts are within the posterior right ethmoid and posterior left sphenoid sinuses. Frontal sinuses are clear. Mastoid air cells are clear. IMPRESSIONS: 1. Clinical consideration for subacute right frontal parietal cortical infarct. Consider follow-up MRI. 2. Additional chronic appearing periventricular white matter ischemic changes with mild atrophy
[2021-12-18] MEDS: DAPTOmycin 500 MG in SODIUM CHLORIDE 0.9% 50 ML IVPB SCH (09:42)
[2021-12-18] MEDS ORDERED: NALOXONE 0.4 MG/ML 1 ML VIAL IV PRN (10:29)
[2021-12-18] MEDS ORDERED: HYDROmorphone 0.5 MG/0.5 ML SYRINGE IVP PRN (10:29)
[2021-12-18] MEDS ORDERED: ASPIRIN 81 MG PO STA ×2 (10:31→10:33)
[2021-12-18] MEDS: HYDROmorphone 1 MG/ML 1 ML SYRINGE IVP PRN ×3 (13:24→20:32)
[2021-12-18 13:39] LABS: Appearance,Urine Clear (Clear); Bilirubin,Urine Negative (Negative); Blood,Urine Small (Negative); Budding Yeast,Urine Many /hpf; Color,Urine Yellow; Glucose,Urine (UA) 2+ (Negative); Hyaline Casts,Urine 3 /lpf (0-2); Ketones,Urine 1+ (Negative); Leukocyte Esterase,Urine Negative (Negative); Mucus,Urine Rare /hpf; Nitrite,Urine Negative (Negative); PH, Urine 6.5 (5.0-8.0); Protein,Urine 3+ (Negative); RBC,Urine 7 /hpf (0-5); Specific Gravity,Urine 1.019 (1.001-1.035); Squamous Epithelial Cell,Urine <1 /hpf (0-4); Urobilinogen,Urine <2.0 mg/dL (<2.0); WBC,Urine 9 /hpf (0-5)
[2021-12-18] MEDS: AMPICILLIN-SULBACTAM 3 GM in SODIUM CHLORIDE 0.9% 100 ML IVPB SCH ×2 (16:22→22:28)
[2021-12-18] MEDS ORDERED: ACETAMINOPHEN TAB 325 MG TAB PO PRN (17:37)
--- NOTE | 2021-12-18 20:02 | P.HPIM ---
History of Present Illness H&P Date: 12/18/21 Chief Complaint: Right leg pain This is a 61-year-old patient, now following with Dr. Smalls at [facility] Chronic stable medical conditions include diabetes, hypertension, left below- knee amputation. admitted to the hospital on 11/09/2021 with a right foot no nhealing ulcer. Had been a smoker up to recently. Wound on right heel, wound cultures were positive for Acinetobacter and MRSA. MRI was negative for osteomyelitis. Patient was discharged on IV Unasyn and daptomycin. discharged on BiPAP. He had desaturated there and he was transferred as patient became short of breath. Patient was subsequently admitted from December 01 through December 11 Admitted with acute COPD exacerbation, pneumonia, right heel wound. IV Unasyn daptomycin continued. Bronchodilators. Steroids. For neuropathic pain , Neurontin was increased. seen by pain services. Patient was discharged to rehab Patient now presents complaining of increasing pain in the right lower e xtremity. That seems to be his main complaint. Has been refusing his medications last 2 days. No fever no chills reported. Patient seen by Dr. Montalvo in November. Arterial ultrasound was a suboptimal study at that time. Due to noncooperation. Short slightly decreased TBI. Patient has dressing on the right lower extremity for blisters. Also has wounds. No sedation patient was seen by pain services. Review of systems: GEN.: Tired decreased appetite EYES: [None] HEENT: [None] NECK: [None] RESPIRATORY: [None] CARDIOVASCULAR: [None] GASTROINTESTINAL: [None] GENITOURINARY: [None] MUSCULOSKELETAL: [Joint pains] LYMPHATICS: [None] HEMATOLOGICAL: [None] PSYCHIATRY: [None] NEUROLOGICAL: [None] Past medical history to include: Stroke, diabetes, hypertension, left below-knee amputation, right heel wound, PAD Social history: [facility] [place], smoked 2 packs a day for 45 years up October 2021. No alcohol. . 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 Conjunctiva normal. HEENT: External appearance of nose and ears normal, oral cavity grossly normal. NECK: JVD not raised; masses not palpable. HEART: First and second heart sounds are normal; no edema. LUNGS: Respiratory rate increased; decreased breath sounds ABDOMEN: Soft, nontender, liver spleen not palpable, no masses palpable. PSYCH: Alert and oriented x3; mood and affect anxious. MUSCULOSKELETAL:No Clubbing/cyanosis;muscles-grossly intact. EXTREMITIES: Right heel wound. Dressing right lower extremity. NEUROLOGICAL: Cranial nerves grossly intact; no facial asymmetry, power and sensation grossly intact. INVESTIGATIONS, reviewed in the clinical context: White count 8.3 hemoglobin 7 platelets 256 potassium 5.3 BUN 38 creatinine 1.9 to EKG tracing personally reviewed by me-normal sinus rhythm. Grade [address]-T changes and changes Chest x-ray film personally reviewed by me-portable/infiltrates possibly chronic CT scan brain without contrast: Possible subacute right frontal parietal cortical infarct. Previous labs: 12/11/2021: Potassium 5.5 creatinine 1.86 2-D echocardiogram: EF 60 - 65% Doppler ultrasound [December 10] right lower extremity: Negative for DVT Assessment and plan: -Possible subacute right frontoparietal cortical infarct. Patient does not have any obvious focal findings or complaints. His only complaint is that of right leg pain. We will do a carotid Doppler. Patient has recent recent 2-D echocardiogram. Consult neurology - COPD in a previous smoker: DuoNeb 3 times a day. Pulmicort nebulizer twice a day. -Right heel diabetic wound negative for osteomyelitis per recent MRI. Recent debridement. Culture positive for Acinetobacter, MRSA Continue Unasyn, IV daptomycin. to complete a total of 6 weeks. -chronic hypoxic respiratory failure from COPD currently on 4 L of oxygen. -Normocytic anemia/iron deficiency anemia -Chronic kidney disease stage III likely diabetic nephropathy and hypertensive nephrosclerosis Creatinine 1.68 on November 09 -Diabetes mellitus type 2, chronically on insulin: Levemir 10 units. 10 units with meals Humalog. Sliding scale. -Essential hypertension Coreg 12.5 mg twice a day hydralazine 100 mg 2 times a day -Diabetic peripheral neuropathy: Possibly uncontrolled Increase Neurontin to 300 mg twice a day -Restless leg syndrome: Requip 0.5 mg by mouth 3 times a day -Left below-knee amputation -PAD Given increased pain consult Dr. Montalvo. -Full code Consult pain service, patient is known to them. Also Dr. Montalvo to reevaluate vascular status right lower extremity. ID to follow with antibiotics. Other medications to be continued. Care was discussed with the patient. Questions answered. Neuro checks. Consult neurology. 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), MRSA, VRE Date of last positivie culture/infection: 11/30/21 VRE; 11/11/21-MRSA MDRO Source:: Blood-VRE; Right heel-MRSA & MDRO Additional Past Surgical History / Comment(s): BKA right leg Past Anesthesia/Blood Transfusion Reactions: No Reported Reaction Past Psychological History: No Psychological Hx Reported Smoking Status: Current every day smoker Past Alcohol Use History: None Reported Past Drug Use History: None Reported Medications and Allergies Home Medications Medication Instructions Recorded Confirmed Type Carvedilol [Coreg] 12.5 mg PO BID 11/09/21 12/18/21 History Ketoconazole 2% Shampoo [Nizoral] 1 applic TOPICAL WESA 11/09/21 12/18/21 History Ticagrelor [Brilinta] 90 mg PO BID 11/09/21 12/18/21 History Ampicillin-Sulbactam [Unasyn] 3 gm IVPB Q6HR 27 Days #108 each 11/30/21 12/18/21 Rx Bumetanide [BUMEX] 1 mg PO BID 30 Days #60 tablet 11/30/21 12/18/21 Rx Tamsulosin [Flomax] 0.4 mg PO PC-BRKFST #30 11/30/21 12/18/21 Rx Budesonide [Pulmicort] 1 mg INHALATION RT-BID ml 12/05/21 12/18/21 Rx Insulin Lispro [humaLOG Kwikpen] 10 units SQ AC-TID 30 Days #6 ml 12/05/21 12/18/21 Rx Gabapentin [Neurontin] 100 mg PO DAILY 3 Days #3 cap 12/11/21 12/18/21 Rx Gabapentin [Neurontin] 300 mg PO HS #3 cap 12/11/21 12/18/21 Rx Acetaminophen Tab [Tylenol] 650 mg PO Q6H PRN 12/18/21 12/18/21 History DAPTOmycin [Cubicin] 500 mg IV HS 12/18/21 12/18/21 History Insulin Detemir (Levemir) [Levemir] 10 unit SQ HS 12/18/21 12/18/21 History Ipratropium-Albuterol Nebulize 3 ml INHALATION RT-Q8H 12/18/21 12/18/21 History [Duoneb 0.5 mg-3 mg/3 ml Soln] hydrALAZINE HCL [Apresoline] 100 mg PO BID 12/18/21 12/18/21 History levETIRAcetam [Keppra] 1,000 mg PO BID@0800,2000 12/18/21 12/18/21 History oxyCODONE-APAP 10-325MG [Percocet 1 tab PO Q4H PRN 12/18/21 12/18/21 History 10-325 mg] rOPINIRole HCL [Requip] 0.5 mg PO TID@0500,1300,2100 12/18/21 12/18/21 History Allergies Allergy/AdvReac Type Severity Reaction Status Date / Time No Known Allergies Allergy Verified 12/18/21 08:10 Physical Exam Vitals: Vital Signs Temp Pulse Resp BP Pulse Ox 12/18/21 16:14 86 14 156/81 97 12/18/21 12:36 98.3 F 97 141/79 93 L 12/18/21 09:43 98 18 158/74 96 12/18/21 07:40 99.3 F 106 H 18 152/78 96 Intake and Output 12/18/21 12/18/21 12/18/21 06:59 14:59 22:59 Other: Weight 108.046 kg Results CBC & Chem 7: 12/18/21 07:58 12/18/21 07:58 Labs: Abnormal Lab Results - Last 24 Hours (Table) 12/18/21 12/18/21 12/18/21 Range/Units 07:58 07:58 07:58 RBC 2.52 L (4.30-5.90) m/uL Hgb 7.0 L D (13.0-17.5) gm/dL Hct 23.9 L (39.0-53.0) % MCHC 29.2 L (31.0-37.0) g/dL Lymphocytes # 0.8 L (1.0-4.8) k/uL Potassium 5.3 H (3.5-5.1) mmol/L Chloride 110 H (98-107) mmol/L BUN 38 H (9-20) mg/dL Creatinine 1.92 H (0.66-1.25) mg/dL Glucose 157 H (74-99) mg/dL Calcium 8.2 L (8.4-10.2) mg/dL Urine Protein 3+ H (Negative) Urine Glucose (UA) 2+ H (Negative) Urine Ketones 1+ H (Negative) Urine Blood Small H (Negative) Urine RBC 7 H (0-5) /hpf Urine WBC 9 H (0-5) /hpf Hyaline Casts 3 H (0-2) /lpf Urine Mucus Rare H (None) /hpf Urine Yeast (Budding) Many H (None) /hpf
[2021-12-18] MEDS: TICAGRELOR 90 MG TAB PO SCH (20:31)
[2021-12-18] MEDS: carvediloL 12.5 MG TAB PO SCH (20:31)
[2021-12-18] MEDS: levETIRAcetam 500 MG TAB PO SCH (20:31)
[2021-12-18] MEDS: GABAPENTIN 300 MG CAP PO SCH ×2 (20:31→20:32)
[2021-12-18] MEDS: BUMETANIDE 1 MG TAB PO SCH (20:32)
[2021-12-18] MEDS ORDERED: INSULIN DETEMIR (LEVEMIR) 100 UNIT/ML SYR SQ SCH (21:00)
[2021-12-18] MEDS ORDERED: GABAPENTIN 300 MG CAP PO SCH (21:00)
[2021-12-18] MEDS ORDERED: hydrALAZINE HCL 50 MG TAB PO SCH (21:00)
[2021-12-18] MEDS: BUDESONIDE 1 MG/2 ML NEBU INHALATION SCH (21:06)
[2021-12-18 21:17] LABS: Glucose,Whole Blood 160 mg/dL (75-99)
[2021-12-18] MEDS: hydrALAZINE HCL 50 MG TAB PO SCH (22:03)
[2021-12-18] MEDS: oxyCODONE-APAP 10-325MG 1 EACH TAB PO PRN (22:03)
[2021-12-18] MEDS: SODIUM CHLORIDE 0.9% 1,000 ML IV SCH (22:28)
--- NOTE | 2021-12-18 23:08 | P.CONS ---
History of Present Illness - Reason for Consult Consult date: 12/18/21 - History of Present Illness Patient is a 61-year male with a past medical history significant for diabetes mellitus in this patient who did have history of left below the knee amputation patient recently did have her to admission to this facility initially wound was with a right heel wound which was debrided by vascular surgery and there was concern for the wound extending down to the bone patient has been nikki ated with the daptomycin and Unasyn on the basis of local culture positive for MRSA and Acinetobacter, and the patient was getting Unasyn and daptomycin at the local group home the patient has been brought into the hospital for evaluation of mental status changes and apparently the patient has been refusing his medication including antibiotics patient on presentation to the hospital did have a low-grade fever of 99.3 degrees formulae at patient did have normal white count BUN/creatinine mildly elevated urine was not significantly positive patient did have a chest x-ray cardiomegaly and interstitial opacities consider CHF with mild interstitial pulmonary edema patient has been continued on Unasyn and daptomycin infectious disease was consulted for further management patient has been complaining of possible stroke and wants to go home to meet his family, did have some pain to the right heel area but able to quantify it any further patient also noticed to have a diffuse rash which is new comparing to his previous admission 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), MRSA, VRE Year Discovered:: 11/30/21 VRE; 11/11/21-MRSA MDRO Source:: Blood-VRE; Right heel-MRSA & MDRO Additional Past Surgical History / Comment(s): BKA right leg Past Anesthesia/Blood Transfusion Reactions: No Reported Reaction Past Psychological History: No Psychological Hx Reported Smoking Status: Current every day smoker Past Alcohol Use History: None Reported Past Drug Use History: None Reported Medications and Allergies Home Medications Medication Instructions Recorded Confirmed Type Carvedilol [Coreg] 12.5 mg PO BID 11/09/21 12/18/21 History Ketoconazole 2% Shampoo [Nizoral] 1 applic TOPICAL WESA 11/09/21 12/18/21 History Ticagrelor [Brilinta] 90 mg PO BID 11/09/21 12/18/21 History Ampicillin-Sulbactam [Unasyn] 3 gm IVPB Q6HR 27 Days #108 each 11/30/21 12/18/21 Rx Bumetanide [BUMEX] 1 mg PO BID 30 Days #60 tablet 11/30/21 12/18/21 Rx Tamsulosin [Flomax] 0.4 mg PO PC-BRKFST #30 11/30/21 12/18/21 Rx Budesonide [Pulmicort] 1 mg INHALATION RT-BID ml 12/05/21 12/18/21 Rx Insulin Lispro [humaLOG Kwikpen] 10 units SQ AC-TID 30 Days #6 ml 12/05/21 12/18/21 Rx Gabapentin [Neurontin] 100 mg PO DAILY 3 Days #3 cap 12/11/21 12/18/21 Rx Gabapentin [Neurontin] 300 mg PO HS #3 cap 12/11/21 12/18/21 Rx Acetaminophen Tab [Tylenol] 650 mg PO Q6H PRN 12/18/21 12/18/21 History DAPTOmycin [Cubicin] 500 mg IV HS 12/18/21 12/18/21 History Insulin Detemir (Levemir) [Levemir] 10 unit SQ HS 12/18/21 12/18/21 History Ipratropium-Albuterol Nebulize 3 ml INHALATION RT-Q8H 12/18/21 12/18/21 History [Duoneb 0.5 mg-3 mg/3 ml Soln] hydrALAZINE HCL [Apresoline] 100 mg PO BID 12/18/21 12/18/21 History levETIRAcetam [Keppra] 1,000 mg PO BID@0800,2000 12/18/21 12/18/21 History oxyCODONE-APAP 10-325MG [Percocet 1 tab PO Q4H PRN 12/18/21 12/18/21 History 10-325 mg] rOPINIRole HCL [Requip] 0.5 mg PO TID@0500,1300,2100 12/18/21 12/18/21 History Allergies Allergy/AdvReac Type Severity Reaction Status Date / Time No Known Allergies Allergy Verified 12/18/21 08:10 Physical Exam Vitals: Vital Signs Temp Pulse Resp BP Pulse Ox 12/18/21 16:14 86 14 156/81 97 12/18/21 12:36 98.3 F 97 141/79 93 L 12/18/21 09:43 98 18 158/74 96 12/18/21 07:40 99.3 F 106 H 18 152/78 96 Intake and Output 12/18/21 12/18/21 12/18/21 06:59 14:59 22:59 Other: Weight 108.046 kg Results CBC & Chem 7: 12/18/21 07:58 12/18/21 07:58 Labs: Abnormal Lab Results - Last 24 Hours (Table) 12/18/21 12/18/21 12/18/21 Range/Units 07:58 07:58 07:58 RBC 2.52 L (4.30-5.90) m/uL Hgb 7.0 L D (13.0-17.5) gm/dL Hct 23.9 L (39.0-53.0) % MCHC 29.2 L (31.0-37.0) g/dL Lymphocytes # 0.8 L (1.0-4.8) k/uL Potassium 5.3 H (3.5-5.1) mmol/L Chloride 110 H (98-107) mmol/L BUN 38 H (9-20) mg/dL Creatinine 1.92 H (0.66-1.25) mg/dL Glucose 157 H (74-99) mg/dL Calcium 8.2 L (8.4-10.2) mg/dL Urine Protein 3+ H (Negative) Urine Glucose (UA) 2+ H (Negative) Urine Ketones 1+ H (Negative) Urine Blood Small H (Negative) Urine RBC 7 H (0-5) /hpf Urine WBC 9 H (0-5) /hpf Hyaline Casts 3 H (0-2) /lpf Urine Mucus Rare H (None) /hpf Urine Yeast (Budding) Many H (None) /hpf Assessment and Plan Plan: 1patient with right heel diabetic foot infection in this patient who is s/p debridement and culture positive for Acinetobacter and MRSA and there was concern for the wound probing down to the bone at the time of initial debridement patient now seem to have worsening of his right heel wound with surrounding necrotic changes and will benefit from further surgical debridement. 2patient with generalized maculopapular rash could be related to Unasyn which will be discontinued. 3we will continue patient on daptomycin however start the patient cefepime. 4local wound care to the right heel with the Medihoney followed by moist dressing and the patient benefit from further surgical debridement per vascular surgery. We will follow on clinical condition and cultures to further adjust medication if needed Thank you for this consultation will follow this patient along with you
[2021-12-18] MEDS: IPRATROPIUM-ALBUTEROL 3 ML NEB INHALATION SCH (23:47)
[2021-12-18] MEDS: CEFEPIME 2 GM in SODIUM CHLORIDE 0.9% 100 ML IVPB SCH (23:57)
[2021-12-19] MEDS: HYDROmorphone 1 MG/ML 1 ML SYRINGE IVP PRN ×2 (01:04→15:31)
[2021-12-19] MEDS: oxyCODONE-APAP 10-325MG 1 EACH TAB PO PRN ×4 (06:18→23:33)
[2021-12-19] MEDS: carvediloL 12.5 MG TAB PO SCH ×2 (06:19→17:26)
[2021-12-19 07:07] LABS: Glucose,Whole Blood 168 mg/dL (75-99)
--- NOTE | 2021-12-19 08:10 | P.CNNES ---
History of Present Illness Consult date: 12/18/21 Requesting physician: Willie Baig Reason for Consult: CVA History of Present Illness: Patient is a 61-year-old male came to the hospital by ambulance this morning at 7:29 AM. As per EMS flow sheet, when they arrived, found patient in his room screaming "help me". The nurse at the facility mentioned that patient has cellulitis in his right leg and wound on his heel. Patient has been combative and would not let staff administer antibiotic or do patient care. 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 Patient's skin had red dots all over his upper and lower body including extremities. Patient's vitals at the scene was blood pressure 192/88, pulse rate 113, respiration 20, saturation could not be perfor med. Temperature 99.1. Blood glucose 193. EKG shows sinus tachycardia, nonspecific ST and T-wave abnormality. CT head showed subacute right frontal parietal cortical infarct. Consider follow-up M RI. Additional chronic appearing periventricular white matter ischemic changes with mild atrophy. On my review, this infarct reported appears chronic in nature, not acute or subacute. No previous films available for comparison. Chest x-ray revealed cardiomegaly and interstitial opacities persist compared to 12/03/2021. Consider CHF with mild interstitial pulmonary edema. Correlate to exclude atypical pneumonia. Patient's blood test shows WBC 8.3 hemoglobin 7.0 (chronic anemia but worse, as baseline is 8-9), platelet 256. Sodium is normal potassium 5.3, BUN 38, creatinine 1.92. UA is negative. Patient's last lipid panel with cholesterol 244 on 11/12/2021, LDL 169, HDL 33 and triglycerides 206. Hemoglobin A1c 8.9 on 11/10/2021. Patient's home medications include Coreg, Brilinta 90 mg twice a day Flomax, insulin, gabapentin 100 mg daily, 300 mg at bedtime, Keppra 1000 mg twice a day, oxycodone, hydralazine, insulin and Requip 0.5 mg 3 times a day. Patient at present tells me that he has history of a stroke that affected his left side about a year ago. He believes that he did have some residual deficits from it. Patient has history of diabetes for last 4-5 years, hypertension. He states that he is almost smoked tobacco more than one pack per day for last 5-6 years. Patient at present appears to be in distress because of pain. Patient keeps on yelling for help, stating "my leg is frozen". "My foot is hurting, cannot feel it". Please refer to examination below. Review of Systems Feet hurting. Otherwise he did not answer to any questions because of significant amount of pain and lack of cooperation. ROS unobtainable: due to mental status 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), MRSA, VRE Date of last positivie culture/infection: 11/30/21 VRE; 11/11/21-MRSA MDRO Source:: Blood-VRE; Right heel-MRSA & MDRO Additional Past Surgical History / Comment(s): BKA right leg Past Anesthesia/Blood Transfusion Reactions: No Reported Reaction Past Psychological History: No Psychological Hx Reported Smoking Status: Current every day smoker Past Alcohol Use History: None Reported Past Drug Use History: None Reported Medications and Allergies Home Medications Medication Instructions Recorded Confirmed Type Carvedilol [Coreg] 12.5 mg PO BID 11/09/21 12/18/21 History Ketoconazole 2% Shampoo [Nizoral] 1 applic TOPICAL WESA 11/09/21 12/18/21 History Ticagrelor [Brilinta] 90 mg PO BID 11/09/21 12/18/21 History Ampicillin-Sulbactam [Unasyn] 3 gm IVPB Q6HR 27 Days #108 each 11/30/21 12/18/21 Rx Bumetanide [BUMEX] 1 mg PO BID 30 Days #60 tablet 11/30/21 12/18/21 Rx Tamsulosin [Flomax] 0.4 mg PO PC-BRKFST #30 11/30/21 12/18/21 Rx Budesonide [Pulmicort] 1 mg INHALATION RT-BID ml 12/05/21 12/18/21 Rx Insulin Lispro [humaLOG Kwikpen] 10 units SQ AC-TID 30 Days #6 ml 12/05/21 12/18/21 Rx Gabapentin [Neurontin] 100 mg PO DAILY 3 Days #3 cap 12/11/21 12/18/21 Rx Gabapentin [Neurontin] 300 mg PO HS #3 cap 12/11/21 12/18/21 Rx Acetaminophen Tab [Tylenol] 650 mg PO Q6H PRN 12/18/21 12/18/21 History DAPTOmycin [Cubicin] 500 mg IV HS 12/18/21 12/18/21 History Insulin Detemir (Levemir) [Levemir] 10 unit SQ HS 12/18/21 12/18/21 History Ipratropium-Albuterol Nebulize 3 ml INHALATION RT-Q8H 12/18/21 12/18/21 History [Duoneb 0.5 mg-3 mg/3 ml Soln] hydrALAZINE HCL [Apresoline] 100 mg PO BID 12/18/21 12/18/21 History levETIRAcetam [Keppra] 1,000 mg PO BID@0800,2000 12/18/21 12/18/21 History oxyCODONE-APAP 10-325MG [Percocet 1 tab PO Q4H PRN 12/18/21 12/18/21 History 10-325 mg] rOPINIRole HCL [Requip] 0.5 mg PO TID@0500,1300,2100 12/18/21 12/18/21 History Allergies Allergy/AdvReac Type Severity Reaction Status Date / Time No Known Allergies Allergy Verified 12/18/21 08:10 Physical Examination - Vital Signs Vital Signs: Vital Signs Temp Pulse Resp BP Pulse Ox 12/18/21 12:36 98.3 F 97 141/79 93 L 12/18/21 09:43 98 18 158/74 96 12/18/21 07:40 99.3 F 106 H 18 152/78 96 Intake and Output 12/17/21 12/18/21 12/18/21 22:59 06:59 14:59 Other: Weight 108.046 kg Patient is a late middle aged male, who appears older than his stated age. Patient is in distress because of pain. He continues to more, grown, yelling "help me", "my leg is frozen". He appears restless. Patient is alert awake. Patient did not elect to answer about the month, year or the building. Speech and language functions are normal. Attention, concentration and fund of knowledge could not be tested because of his significant pain and lack of cooperation. On cranial examination, pupils are equal, round and reacting to light, visual butler he did not cooperate at all, extraocular muscles are intact with no nystagmus. Face is symmetric, tongue protrudes to the midline. Patient did not cooperate for checking for palate. Shoulder shrug normal. On muscle strength testing, there is no pronator drift and the strength is normal in arms distally and proximally. Patient has left below-knee amputation. Patient did not cooperate for testing of his right lower extremity because of pain. Deep tendon reflexes are significantly hypoactive. Did not check for plantar because of pain. Left side is amputated below the knee Sensory to touch is equal with no neglect. Cerebellar function patient did not cooperate. Tone and bulk of muscles normal. Gait not checked. On general examination, there is no carotid bruit or murmur, S1-S2 audible. Abdomen is soft nontender. No organomegaly, bowel sounds present. Chest is clear to auscultation. Patient has some raised maculopapular rash over his torso as well as extremity. Patient's right foot appears pale. Patient has a bandage in the right lower leg. Results - Laboratory Findings CBC and BMP: 12/18/21 07:58 12/18/21 07:58 Abnormal Lab Findings: Abnormal Labs 12/18/21 12/18/21 12/18/21 07:58 07:58 07:58 RBC 2.52 L Hgb 7.0 L D Hct 23.9 L MCHC 29.2 L Lymphocytes # 0.8 L Potassium 5.3 H Chloride 110 H BUN 38 H Creatinine 1.92 H Glucose 157 H Calcium 8.2 L Urine Protein 3+ H Urine Glucose (UA) 2+ H Urine Ketones 1+ H Urine Blood Small H Urine RBC 7 H Urine WBC 9 H Hyaline Casts 3 H Urine Mucus Rare H Urine Yeast (Budding) Many H Assessment and Plan Assessment: * Abnormal computed tomography scan of head, with evidence of chronic encephalomalacia involving the right frontal lobe. This is not subacute as mentioned in the radiology report. It is most likely chronic. Patient admits that he had history of a stroke, which affected his left side of the body. I did not notice any obvious residual deficit at this time. * Peripheral arterial disease * Diabetic foot ulcers * History of left below-knee amputation * Maculopapular rash, probable drug ALLERGY. * Diabetes * Hypertension * Tobacco use Plan: * Patient's CT head was reviewed. The encephalomalacia is old, does not appear "subacute", as mentioned in the report. * We will however check carotid Doppler to rule out stenosis. * Continue Brilinta 90 mg twice a day * Lipid panel from 11/12/2021 revealed cholesterol 244, LDL 169, HDL 33 and trig lycerides 206. We will start Lipitor 40 mg daily. * Hemoglobin A1c 8.9 on 11/10/2021. Recommend optimize control of diabetes to target A1c < 7.0 * Patient's 2-D echo from 11/10/2021 revealed normal left ventricular size, borderline concentric LVH, EF is between 60-65%. Right ventricle was mildly enlarged. * Aggressive control of stroke risk factors. * Recommended tobacco cessation. * Other medical management as per IM and other specialties. * Thank you for the consult.
[2021-12-19] MEDS: CEFEPIME 2 GM in SODIUM CHLORIDE 0.9% 100 ML IVPB SCH ×3 (08:55→23:31)
[2021-12-19] MEDS: TAMSULOSIN 0.4 MG CAP.ER.24H PO SCH (08:56)
[2021-12-19] MEDS: BUMETANIDE 1 MG TAB PO SCH ×2 (08:56→21:23)
[2021-12-19] MEDS: levETIRAcetam 500 MG TAB PO SCH ×2 (08:56→21:23)
[2021-12-19] MEDS: GABAPENTIN 300 MG CAP PO SCH ×2 (08:56→21:24)
[2021-12-19] MEDS: TICAGRELOR 90 MG TAB PO SCH (08:56)
[2021-12-19] MEDS: hydrALAZINE HCL 50 MG TAB PO SCH ×3 (08:56→21:23)
[2021-12-19] MEDS ORDERED: GABAPENTIN 100 MG CAP PO SCH (09:00)
[2021-12-19] MEDS: BUDESONIDE 1 MG/2 ML NEBU INHALATION SCH ×2 (09:16→20:15)
[2021-12-19] MEDS: IPRATROPIUM-ALBUTEROL 3 ML NEB INHALATION SCH ×3 (09:17→20:17)
[2021-12-19] MEDS: INSULIN ASPART (NovoLOG) 100 UNIT/ML VIAL SQ SCH ×3 (10:26→17:22)
[2021-12-19] MEDS: DAPTOmycin 500 MG in SODIUM CHLORIDE 0.9% 50 ML IVPB SCH (10:50)
[2021-12-19] MEDS: SODIUM CHLORIDE 0.9% 1,000 ML IV SCH (11:13)
[2021-12-19 11:48] LABS: Glucose,Whole Blood 220 mg/dL (75-99)
[2021-12-19 12:18] LABS: Potassium 5.1 mmol/L (3.5-5.1)
[2021-12-19 13:31] VITALS: BMI 34.2
--- NOTE | 2021-12-19 14:46 | P.GSCN ---
History of Present Illness Consult date: 12/19/21 Reason for Consult: Peripheral arterial disease Requesting physician: Graham He History of present illness: 61-year-old male with a PMH of type II DM, PVD status post left BKA, seizure disorder, and hypertension who presents to the emergency room with ultra mental status changes. Patient is living with his daughter and apparently was refusing medications so she called EMS for altered mental status changes. Patient was recently admitted to this hospital in November of this year for right foot pain. At that time he was seen by vascular surgery as well as infectious disease. He underwent a debridement of his right heel. He had arterial duplex that showed minimal peripheral arterial disease in the right lower extremity. He has a history of a left below the knee amputation which was done approximately 6 m onths ago for nonhealing wound. Patient had been noncompliant at that time. At this time it is difficult to assess his compliance that he has had any follow-up with the wound care center as ordered. Patient is crying out in pain states he has pain all over his body but worse in his butt. Also noticed that he has a rash all over his body. He presently thinks that he is in [place]. He had a brain CT head stated clinical consideration for subacute right frontoparietal cortical infarct consider follow-up MRI. Additional chronic appearing periventricular white matter ischemic changes with mild atrophy, however neurology reviewed and states he is encephalomalacia is old and does not appear subacute as mentioned in report. Review of Systems REVIEW OF SYSTEMS: CARDIOPULMONARY: No chest pain or shortness of breath. Gastrointestinal: No abdominal pain. No nausea or vomiting. No hematemesis, coffee-ground emesis. No rectal bleeding, or melena. GENITOURINARY: No dysuria or hematuria. MUSCULOSKELETAL: Reports normal range of motion. Generalized pain. SKIN: Rash. No jaundice. Multiple wounds. ENDOCRINE: No chills, fevers. No excessive weight gain or loss. No polydipsia or polyuria. PSYCHIATRIC: Unremarkable. NEUROLOGY: No change in mental status. Denies dizziness, headache. ENT: Vision unremarkable. CONSTITUTIONAL: No recent weight loss. No fever, chills, night sweats. ROS unobtainable: due to mental status 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), MRSA, VRE Year Discovered:: 11/30/21 VRE; 11/11/21-MRSA MDRO Source:: Blood-VRE; Right heel-MRSA & MDRO Additional Past Surgical History / Comment(s): BKA right leg Past Anesthesia/Blood Transfusion Reactions: No Reported Reaction Past Psychological History: No Psychological Hx Reported Smoking Status: Current every day smoker Past Alcohol Use History: None Reported Past Drug Use History: None Reported Medications and Allergies Home Medications Medication Instructions Recorded Confirmed Type Carvedilol [Coreg] 12.5 mg PO BID 11/09/21 12/18/21 History Ketoconazole 2% Shampoo [Nizoral] 1 applic TOPICAL WESA 11/09/21 12/18/21 History Ticagrelor [Brilinta] 90 mg PO BID 11/09/21 12/18/21 History Ampicillin-Sulbactam [Unasyn] 3 gm IVPB Q6HR 27 Days #108 each 11/30/21 12/18/21 Rx Bumetanide [BUMEX] 1 mg PO BID 30 Days #60 tablet 11/30/21 12/18/21 Rx Tamsulosin [Flomax] 0.4 mg PO PC-BRKFST #30 11/30/21 12/18/21 Rx Budesonide [Pulmicort] 1 mg INHALATION RT-BID ml 12/05/21 12/18/21 Rx Insulin Lispro [humaLOG Kwikpen] 10 units SQ AC-TID 30 Days #6 ml 12/05/21 12/18/21 Rx Gabapentin [Neurontin] 100 mg PO DAILY 3 Days #3 cap 12/11/21 12/18/21 Rx Gabapentin [Neurontin] 300 mg PO HS #3 cap 12/11/21 12/18/21 Rx Acetaminophen Tab [Tylenol] 650 mg PO Q6H PRN 12/18/21 12/18/21 History DAPTOmycin [Cubicin] 500 mg IV HS 12/18/21 12/18/21 History Insulin Detemir (Levemir) [Levemir] 10 unit SQ HS 12/18/21 12/18/21 History Ipratropium-Albuterol Nebulize 3 ml INHALATION RT-Q8H 12/18/21 12/18/21 History [Duoneb 0.5 mg-3 mg/3 ml Soln] hydrALAZINE HCL [Apresoline] 100 mg PO BID 12/18/21 12/18/21 History levETIRAcetam [Keppra] 1,000 mg PO BID@0800,2000 12/18/21 12/18/21 History oxyCODONE-APAP 10-325MG [Percocet 1 tab PO Q4H PRN 12/18/21 12/18/21 History 10-325 mg] rOPINIRole HCL [Requip] 0.5 mg PO TID@0500,1300,2100 12/18/21 12/18/21 History Allergies Allergy/AdvReac Type Severity Reaction Status Date / Time No Known Allergies Allergy Verified 12/18/21 08:10 Surgical - Exam Vital Signs Temp Pulse Resp BP Pulse Ox 99.3 F 106 H 18 152/78 96 12/18/21 07:40 12/18/21 07:40 12/18/21 07:40 12/18/21 07:40 12/18/21 07:40 General appearance: The patient is alert, oriented, appears in no acute distress. HET: Head is normocephalic and atraumatic. Pupils are equal and reactive. Neck: Supple without lymphadenopathy. Trachea midline. No audible carotid bruit. Heart: S1 S2. Regular rate and rhythm. Lungs: Clear to auscultation bilaterally. Abdomen: Soft, nontender, nondistended. Extremities: Left [id number] amputation stump well-healed. Right jara with diabetic ulcer, right diabetic heel wound with ischemic tissue Neurological: Alert and oriented 1. Results - Labs 12/18/21 07:58 12/19/21 11:35 Abnormal Lab Results - Last 24 Hours (Table) 12/18/21 12/18/21 12/19/21 Range/Units 07:58 21:03 07:05 POC Glucose (mg/dL) 160 H 168 H (75-99) mg/dL Urine Protein 3+ H (Negative) Urine Glucose (UA) 2+ H (Negative) Urine Ketones 1+ H (Negative) Urine Blood Small H (Negative) Urine RBC 7 H (0-5) /hpf Urine WBC 9 H (0-5) /hpf Hyaline Casts 3 H (0-2) /lpf Urine Mucus Rare H (None) /hpf Urine Yeast (Budding) Many H (None) /hpf - Imaging Comments: brain CT head stated clinical consideration for subacute right frontoparietal cortical infarct consider follow-up MRI. Additional chronic appearing periventricular white matter ischemic changes with mild atrophy Assessment and Plan Assessment: 1. Right diabetic heel ulcer 2. Altered mental status changes 3. Diabetes mellitus 4. History of left BKA 5. Obesity 6. Chronic kidney disease Plan: 1. Hold Brilinta 2. Continue with antibiotic recommendation from infectious disease 3. Pain management per primary team 4. Repeat CBC, get type and screen 5. We'll plan to move forward with surgical debridement of the right heel tomorrow 6. Continue local wound care as ordered 7. Nothing by mouth after midnight Thank you for this consultation, we will continue to follow The above dictated assessment and findings were discussed with Dr. Marie. The impression and plan of care have been directed as dictated.
[2021-12-19 16:27] LABS: Glucose,Whole Blood 132 mg/dL (75-99)
--- NOTE | 2021-12-19 16:32 | P.CON ---
Consult Note - . Consult date: 12/19/21 Assessment/Plan:: HISTORY OF PRESENT ILLNESS: 61 year old male as a referral from Dr He admitted to [facility] on 12[facility]18[facility]2021 for diabetic foot ulceration[facility] presents today with chronic & severe pain secondary to RLE ulcer for evaluation. Pt states his pain level is 10/10 in intensity in his RLE and that his medications on file (Dilaudid 1mg IVP q3h prn, Neurontin 300mg BID, Percocet 10/325mg q4h prn) are ineffective. Per nurse at side, pt has been refusing Neurontin as he states "it doesn't do anything." I explained to patient that some pain medications take time to build up to a therapeutic range while others have more instant pain relief and that she should not refuse medications. I further discussed that we are tackling his pain from different avenues and that he needs to be more cooperative. Pt insisted on getting prescribed Oxycodone IR 30mg, the medication he was prescribed on an outpatient basis last in June 2021 but was weaned down for unknown reasons. Pt states his pain is stinging, burning, constant and presents without provocation. Pain is relieved with medications, physical therapy, alternating heat & ice and repositioning. Pt is not forthcoming with answers to my questions. He brought up wanting to see his kids. I advised him that they can visit during visiting hours. He responded with "I don't want them to catch anything" where I then replied that the floor he's on does not have universal precautions like other floors do. He then responded by saying his kids are "700 miles away." I then insisted that he should face-time them, but he responded with "it's not like being in person." I told him they should drive/ fly in to see him, but then he insisted "they can't fly! who can afford a plane ticket?" I reminded patient that in emergency situ ations, people make concessions, however he was not phased by it. He was not in acute distress during this whole exchange. A psychological evaluation is needed to ascertain his life objectives. Past Medical History: CVA/TIA, Diabetes Mellitus, Hypertension, LLE AKA Past Surgical History / Comment(s): BKA right leg Social History: Daily tobacco use, Hx of Opioid Tolerance, No ETOH abuse. Has children/grand[id number] Family History: Non contributory All: NKDA Meds: See list REVIEW OF ORGAN SYSTEMS: CONSTITUTIONAL: No fevers or chills. No recent weight loss. HEENT: No visual acuity loss, eye pain, difficulties with hearing. No nosebleeds. No difficulty swallowing. RESPIRATORY: Denies any troubles with breathing or dyspnea on exertion. CARDIOVASCULAR: Denies any chest pain, palpitations, or recent heart attacks. GASTROINTESTINAL: Denies fatty food intolerance. Has change in bowel habits and gas bloat. GENITOURINARY: Denies any blood in urine. Has increased urinary frequency. NEUROLOGICAL: +numbness and tingling along the distal extremities. No seizure disorders or headaches. MUSCULOSKELETAL: + back pain SKIN: No skin cancer. No rash. PSYCHIATRIC: Denies current depression or suicidal t houghts. ENDOCRINE: Denies current thyroid disorders. Denies any blood sugar glucose intolerance. HEME/LYMPHATIC: Denies any lumps and bumps around the neck. History of deep venous thrombosis. ALLERGY/IMMUNOLOGY: No immunoglobulin therapy. No immune deficiencies. BREAST: Denies current breast lumps, pain or nipple discharge. Physical Examinations : Constitutional : Cooperative , not in acute distress . On oxygen via nasal canula. HEENT: Neck supple. No Lymphadenopathy. Normal thyroid size . Eyes no ptosis , no icterus, no photophobia . Hearing intact. Normal oropharynx. No Thrush. Respiratory : Chest clear to auscultations bilaterally. No wheezing. No rhonchi. Cardiovascular : Regular rate and rhythm , S1 / S2. No S3 . No S4. Gastrointestinal : Abdomen soft. No tenderness. Bowel sounds x 4. No organomegaly . Genitourinary : Deferred. Neurologic : Cranial nerve II to XII intact. No focal neurological deficits. Psychiatric : alert & oriented x 3. Matching mood & appropriate affect. Judgment & insight intact. Lymphatic No Lymphadenopathy. Musculoskeletal : Cervical Spine Motor strength in the deltoid and biceps: Normal right side. Normal Left side Motor strength biceps and the wrist extensors: Normal right side . Normal left side Motor strength in the triceps muscle: Normal right side. Normal left side Deep tendon reflexes: Normal at the biceps. Normal at Brachioradialis. Normal at triceps Cervical facet loading test: positive bilaterally Spurling test: positive bilaterally Neck distraction test: positive bilaterally Giancarlo sign: positive bilaterally Lumbar spine Motor strength lower extremities ,thigh and legs 5/5 Right side , 5/5 Left side Deep tendon reflexes : Normal Knee Jerk. Normal Ankle Jerk Vertebral body tenderness over Lumbar facet Loading Test: positive Right / positive Left Range of motion of the lumbar spine Flexion 30 degrees, extension 10 degrees Straight Leg Raise test: Left/ Right positive at degree Sloane test: positive right / positive left. Severe tenderness over the Sacroiliac joint on the Right / Left sides Gaenslen test: positive bilaterally Seated flexion test: positive bilaterally. Extremities LLE AKA RLE BKA with 2cm ulceration, surrounding erythema, dressing intact Assessment/ Plan : RLE diabetic foot ulcer Recommendation of adding Lidoderm 5% patch QAM, remove at bedtime. Urged pt not to refuse medications as directed. Advised pt to ask for pain medications as needed as they're not "around the clock." Notified nurse to administer Dilaudid 1mg IVP x 1 now. Continuation of Percocet 10/325mg, Neurontin 300mg & Dilaudid 1mg IVP pain medications as directed. MAPS reviewed and consistent All questions answered. I have spent greater than 50 minutes on patient care today. Dr Loomis was available by phone for the evaluation of this patient. The time was used to review the medical records including relevant urine studies and Prescription history (MAPs), review of the available imaging, evaluation and examination of the patient, coordination of care with the medical staff and if applicable referring physicians, as well as creation of the medical record PQRS Measure Charge Sheet - Pain Location Generalized Non-Pharmacological Interventions: Position/Reposition Pharmacological Interventions: Scheduled Medication PQRS Narrative: Blood Pressure [Left Arm] 144/71 Blood Pressure 143/67 Pain Intensity [Generalized] 0 Pain Intensity 10 Pain Scale Used Numeric (1 - 10) Scale Used Numeric (1 - 10) Home Medications: Ambulatory Orders Carvedilol [Coreg] 12.5 mg PO BID 11/09/21 Ketoconazole 2% Shampoo [Nizoral] 1 applic TOPICAL WESA 11/09/21 Ticagrelor [Brilinta] 90 mg PO BID 11/09/21 Ampicillin-Sulbactam [Unasyn] 3 gm IVPB Q6HR 27 Days #108 each 11/30/21 Bumetanide [BUMEX] 1 mg PO BID 30 Days #60 tablet 11/30/21 Tamsulosin [Flomax] 0.4 mg PO PC-BRKFST #30 11/30/21 Budesonide [Pulmicort] 1 mg INHALATION RT-BID ml 12/05/21 Insulin Lispro [humaLOG Kwikpen] 10 units SQ AC-TID 30 Days #6 ml 12/05/21 Gabapentin [Neurontin] 100 mg PO DAILY 3 Days #3 cap 12/11/21 Gabapentin [Neurontin] 300 mg PO HS #3 cap 12/11/21 Acetaminophen Tab [Tylenol] 650 mg PO Q6H PRN 12/18/21 DAPTOmycin [Cubicin] 500 mg IV HS 12/18/21 Insulin Detemir (Levemir) [Levemir] 10 unit SQ HS 12/18/21 Ipratropium-Albuterol Nebulize [Duoneb 0.5 mg-3 mg/3 ml Soln] 3 ml INHALATION RT-Q8H 12/18/21 hydrALAZINE HCL [Apresoline] 100 mg PO BID 12/18/21 levETIRAcetam [Keppra] 1,000 mg PO BID@0800,2000 12/18/21 oxyCODONE-APAP 10-325MG [Percocet 10-325 mg] 1 tab PO Q4H PRN 12/18/21 rOPINIRole HCL [Requip] 0.5 mg PO TID@0500,1300,2100 12/18/21
[2021-12-19] MEDS: LIDOCAINE 5% PATCH TOPICAL SCH (17:25)
--- NOTE | 2021-12-19 17:51 | P.PN ---
Progress Note - Text Progress Note Date: 12/19/21 Chief Complaint: Right leg pain This is a 61-year-old patient, now following with Dr. Smalls at [facility] Chronic stable medical conditions include diabetes, hypertension, left below- knee amputation. admitted to the hospital on 11/09/2021 with a right foot nonhealing ulcer. Had been a smoker up to recently. Wound on right heel, wound cultures were positive for Acinetobacter and MRSA. MRI was negative for osteomyelitis. Patient was discharged on IV Unasyn and daptomycin. discharged on BiPAP. He had desaturated there and he was transferred as patient became short of breath. Patient was subsequently admitted from December 01 through December 11 Admitted with acute COPD exacerbation, pneumonia, right heel wound. IV Unasyn daptomycin continued. Bronchodilators. Steroids. For neuropathic pain , Neurontin was increased. seen by pain services. Patient was discharged to rehab Patient now presents complaining of increasing pain in the right lower extremity. That seems to be his main complaint. Has been refusing his medications last 2 days. No fever no chills reported. Patient seen by Dr. Montalvo in November. Arterial ultrasound was a suboptimal study at that time. Due to noncooperation. Short slightly decreased TBI. Patient has dressing on the right lower extremity for blisters. Also has wounds. No sedation patient was seen by pain services. Patient also has a maculopapular rash. Nonitching. Nontender. December 19: Patient Neurontin was increased. On IV Dilaudid. Still complaining of significant pain in the right leg. Antibiotic is being changed to IV cefepime. Discussed with ID. For pain patient is on Neurontin, Dilaudid, Percocet. Seen by pain services. Continue current medications. Discussed with patient. Patient earlier today told the nurse that he wanted to kill himself. Psychiatry consulted. Active Medications Acetaminophen (Acetaminophen Tab 325 Mg Tab) 650 mg PO Q6H PRN PRN Reason: Pain or Fever > 100.5 Albuterol/Ipratropium (Ipratropium-Albuterol 3 Ml Neb) 3 ml INHALATION RT-Q8H LAURA Last Admin: 12/19/21 16:34 Dose: 3 ml Documented by: Budesonide (Budesonide 1 Mg/2 Ml Nebu) 1 mg INHALATION RT-BID LAURA Last Admin: 12/19/21 09:16 Dose: Not Given Documented by: Bumetanide (Bumetanide 1 Mg Tab) 1 mg PO BID [facility] Last Admin: 12/19/21 08:56 Dose: 1 mg Documented by: Carvedilol (Carvedilol 12.5 Mg Tab) 12.5 mg PO BID-W/MEALS [facility] Last Admin: 12/19/21 17:26 Dose: 12.5 mg Documented by: Gabapentin (Gabapentin 300 Mg Cap) 300 mg PO BID [facility] Last Admin: 12/19/21 08:56 Dose: 300 mg Documented by: Hydralazine HCl (Hydralazine Hcl 50 Mg Tab) 100 mg PO TID [facility] Last Admin: 12/19/21 15:31 Dose: 100 mg Documented by: Hydromorphone HCl (Hydromorphone 1 Mg/Ml 1 Ml Syringe) 1 mg IVP Q3HR PRN PRN Reason: Moderate Pain Last Admin: 12/19/21 15:31 Dose: 1 mg Documented by: Daptomycin 500 mg/ Sodium (Chloride) 50 mls @ 100 mls/hr IVPB Q24H [facility] Last Admin: 12/19/21 10:50 Dose: 100 mls/hr Documented by: Sodium Chloride (Saline 0.9%) 1,000 mls @ 20 mls/hr IV .Q24H [facility] Last Admin: 12/19/21 11:13 Dose: Not Given Documented by: Cefepime HCl 2 gm/ Sodium (Chloride) 100 mls @ 25 mls/hr IVPB Q8HR [facility]; Protocol Last Admin: 12/19/21 15:31 Dose: 25 mls/hr Documented by: Insulin Aspart (Insulin Aspart (Novolog) 100 Unit/Ml Vial) 10 unit SQ AC-TID [facility] Last Admin: 12/19/21 17:22 Dose: Not Given Documented by: Insulin Detemir (Insulin Detemir (Levemir) 100 Unit/Ml Syr) 10 unit SQ HS [facility] Last Admin: 12/18/21 22:06 Dose: Not Given Documented by: Levetiracetam (Levetiracetam 500 Mg Tab) 1,000 mg PO BID@0800,2000 [facility] Last Admin: 12/19/21 08:56 Dose: 1,000 mg Documented by: Lidocaine (Lidocaine 5% Patch) 1 patch TOPICAL DAILY [facility]; Protocol Last Admin: 12/19/21 17:25 Dose: 1 patch Documented by: Naloxone HCl (Naloxone 0.4 Mg/Ml 1 Ml Vial) 0.2 mg IV Q2M PRN PRN Reason: Opioid Reversal Oxycodone/Acetaminophen (Oxycodone-Apap 10-325mg 1 Each Tab) 1 each PO Q4H PRN PRN Reason: Pain Last Admin: 12/19/21 17:26 Dose: 1 each Documented by: Ropinirole HCl (Ropinirole Hcl 0.25 Mg Tab) 0.5 mg PO TID@0500,1300,2100 [facility] Last Admin: 12/19/21 12:30 Dose: 0.5 mg Documented by: Tamsulosin HCl (Tamsulosin 0.4 Mg Cap.Er.24h) 0.4 mg PO PC-BRKFST [facility] Last Admin: 12/19/21 08:56 Dose: 0.4 mg Documented by: Past medical history to include: Stroke, diabetes, hypertension, left below-knee amputation, right heel wound, PAD Social history: [place], smoked 2 packs a day for 45 years up October 2021. No alcohol. . 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 Conjunctiva normal. HEENT: External appearance of nose and ears normal, oral cavity grossly normal. NECK: JVD not raised; masses not palpable. HEART: First and second heart sounds are normal; no edema. LUNGS: Respiratory rate increased; decreased breath sounds ABDOMEN: Soft, nontender, liver spleen not palpable, no masses palpable. PSYCH: Alert and oriented x3; mood and affect very anxious DERMATOLOGICAL: Maculopapular rash. Diffuse MUSCULOSKELETAL:No Clubbing/cyanosis;muscles-grossly intact. EXTREMITIES: Right heel wound. Dressing right lower extremity. INVESTIGATIONS, reviewed in the clinical context: December 19: Potassium 5.1 BUN 37 creatinine 1.81 White count 8.3 hemoglobin 7 platelets 256 potassium 5.3 BUN 38 creatinine 1.9 to EKG tracing personally reviewed by me-normal sinus rhythm. Grade [address]-T changes and changes Chest x-ray film personally reviewed by me-portable/infiltrates possibly chronic CT scan brain without contrast: Possible subacute right frontal parietal cor tical infarct. Previous labs: 12/11/2021: Potassium 5.5 creatinine 1.86 2-D echocardiogram: EF 60 - 65% Doppler ultrasound [December 10] right lower extremity: Negative for DVT Assessment and plan: -Chronic encephalomalacia involving the right frontal lobe. [Not subacute stroke as mentioned in the report.]. Seen by Dr. Wolfe from neurology. No further workup. - COPD in a previous smoker: DuoNeb 3 times a day. Pulmicort nebulizer twice a day. -Right heel diabetic wound negative for osteomyelitis per recent MRI.: Worsening Previous Culture positive for Acinetobacter, MRSA IV Unasyn changed over to IV cefepime., IV daptomycin. to complete a total of 6 weeks. 4 debridement -chronic hypoxic respiratory failure from COPD currently on 4 L of oxygen. -Normocytic anemia/iron deficiency anemia -Chronic kidney disease stage III likely diabetic nephropathy and hypertensive nephrosclerosis Creatinine 1.68 on November 09 -Diabetes mellitus type 2, chronically on insulin: Controlled with hypoglycemia Increase Levemir 18 units. Decrease to 5 units with meals Humalog. Sliding scale. -Essential hypertension Coreg 12.5 mg twice a day hydralazine 100 mg 2 times a day -Diabetic peripheral neuropathy: Neurontin to 300 mg twice a day -Restless leg syndrome: Requip 0.5 mg by mouth 3 times a day -Left below-knee amputation -PAD Given increased pain consult Dr. Montalvo. -Pain management Pain management services consulted -Full code IV Unasyn changed over to IV cefepime. 4 right heel debridement. Care was discussed at length with the patient. For pain control patient on IV Dilaudid Percocet Neurontin.
[2021-12-19] MEDS: HYDROmorphone 0.5 MG/0.5 ML SYRINGE IVP PRN ×2 (18:28→21:24)
[2021-12-19 19:32] LABS: Basophils % (A) 1 %; Eosinophils # (A) 0.4 k/uL (0-0.7); Eosinophils % (A) 6 %; HCT 25.8 % (39.0-53.0); HGB 7.6 gm/dL (13.0-17.5); Hypochromasia Marked; Lymphocytes # (A) 0.8 k/uL (1.0-4.8); Lymphocytes % (A) 14 %; MCH 27.9 pg (25.0-35.0); MCHC 29.5 g/dL (31.0-37.0); MCV 94.6 fL (80.0-100.0); Mean Platelet Volume 7.2; Monocytes # (A) 0.5 k/uL (0-1.0); Monocytes % (A) 7 %; Neutrophils # (A) 4.4 k/uL (1.3-7.7); Neutrophils % (A) 70 %; Platelet Count 243 k/uL (150-450); RBC 2.73 m/uL (4.30-5.90); RDW 15.7 % (11.5-15.5); WBC 6.2 k/uL (3.8-10.6)
[2021-12-19 20:01] LABS: Glucose,Whole Blood 197 mg/dL (75-99)
[2021-12-19] MEDS: INSULIN DETEMIR (LEVEMIR) 100 UNIT/ML SYR SQ SCH (21:22)
[2021-12-20 05:47] LABS: HCT 23.7 % (39.0-53.0); Hypochromasia Marked; MCH 28.2 pg (25.0-35.0); MCHC 29.6 g/dL (31.0-37.0); MCV 95.2 fL (80.0-100.0); Mean Platelet Volume 7.1; Platelet Count 232 k/uL (150-450); RBC 2.49 m/uL (4.30-5.90); RDW 15.9 % (11.5-15.5); WBC 6.2 k/uL (3.8-10.6)
[2021-12-20 07:06] LABS: Glucose,Whole Blood 150 mg/dL (75-99)
[2021-12-20] MEDS: BUDESONIDE 1 MG/2 ML NEBU INHALATION SCH ×2 (08:55→21:04)
[2021-12-20] MEDS: IPRATROPIUM-ALBUTEROL 3 ML NEB INHALATION SCH ×3 (08:55→20:52)
--- NOTE | 2021-12-20 09:18 | US ---
EXAMINATION TYPE: US carotid duplex BILAT DATE OF EXAM: 12/20/2021 COMPARISON: None CLINICAL HISTORY: 61-year-old male CVA. Patient did not give much of a history. He states he has had a blockage on both sides of his neck in the past. TECHNIQUE: Carotid duplex ultrasound examination. Indirect Doppler criteria was utilized. EXAM MEASUREMENTS: RIGHT: Peak Systolic Velocity (PSV) cm/sec ----- Right CCA: 32.7 ----- Right ICA: 39.2 ----- Right ECA: 227.5 ICA/CCA ratio: 1.2 RIGHT: End Diastole cm/sec ----- Right CCA: 6.8 ----- Right ICA: 0.0 ----- Right ECA: 24.0 LEFT: Peak Systolic Velocity (PSV) cm/sec ----- Left CCA: 122.1 ----- Left ICA: 254.1 ----- Left ECA: 178.5 ICA/CCA ratio: 2.1 LEFT: End Diastole cm/sec ----- Left CCA: 31.7 ----- Left ICA: 73.1 ----- Left ECA: 15.0 VERTEBRALS (direction of flow): Right Vertebral: Antegrade Left Vertebral: Antegrade [employer] NOTES: Exam is limited due to patient breathing/movement. Extensive plaque visualized throughout the right ICA. Very little color flow is detected with color Doppler/power Doppler. Pulsed wave Doppler shows very diminished, abnormal right ICA waveform. Plaqu e seen within bilateral CCA, bilateral bulb, and bilateral ECA. Elevated velocities within right vertebral, bilateral ECA, and left ICA. IMPRESSION: 1. Suspect subtotal occlusion right ICA. 2. Measurements suggest severe stenosis left ICA. 3. Moderate or severe stenosis right ECA. 4. CTA can be considered for further evaluation. Criteria for Assigning % of Stenosis / Diameter reduction (Estimation based on the indirect measurements of the internal carotid artery velocities (ICA PSV). 1. Normal (no stenosis)=ICA PSV < 125 cm/s: ratio < 2.0: ICA EDV<40 cm/s. 2. Less than 50% stenosis=ICA PSV < 125 cm/s: ratio < 2.0: ICA EDV<40 cm/s. 3. 50 to 69% stenosis=ICA PSV of 125 to 230 cm/s: ration 2.0 ? 4.0: ICA EDV 40-100 cm/s. 4. Greater than 70% stenosis to near occlusion= ICA PSV > 230 cm/s: ratio > 4.0: ICA EDV > 100 cm/s. 5. Near occlusion= ICA PSV velocities may be low or undetectable: variable ratio and ICA EDV. 6. Total occlusion=unable to detect flow.
[2021-12-20] MEDS: CEFEPIME 2 GM in SODIUM CHLORIDE 0.9% 100 ML IVPB SCH ×2 (09:33→20:56)
[2021-12-20] MEDS: TICAGRELOR 90 MG TAB PO SCH ×2 (09:34→20:56)
[2021-12-20] MEDS: INSULIN ASPART (NovoLOG) 100 UNIT/ML VIAL SQ SCH ×3 (09:35→17:39)
[2021-12-20] MEDS: TAMSULOSIN 0.4 MG CAP.ER.24H PO SCH (09:35)
[2021-12-20] MEDS: GABAPENTIN 300 MG CAP PO SCH ×2 (09:35→20:56)
[2021-12-20] MEDS: hydrALAZINE HCL 50 MG TAB PO SCH ×3 (09:35→20:56)
[2021-12-20] MEDS: carvediloL 12.5 MG TAB PO SCH ×2 (09:35→16:42)
[2021-12-20] MEDS: levETIRAcetam 500 MG TAB PO SCH ×2 (09:35→20:56)
[2021-12-20] MEDS: oxyCODONE-APAP 10-325MG 1 EACH TAB PO PRN ×4 (09:40→22:12)
[2021-12-20] MEDS: LIDOCAINE 5% PATCH TOPICAL SCH (09:52)
--- NOTE | 2021-12-20 10:07 | P.CN ---
Psychiatric Consult - . Consult date: 12/20/21 Consult:: 12/20/21 10:06 IDENTIFYING DATA: This patient is a retired, 61-year-old male with significant history of diabetes and left below-knee amputation who presented from [facility] for altered mental status HISTORY OF PRESENT ILLNESS: The patient presented to the hospital on 12/18/2021, brought into the emergency department by EMS for altered mental status. Reportedly, the patient was nonadherent with his medications and was significantly altered. He was refusing his Lasix and his antibiotics. 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 Currently, the patient is being treated for a right heel diabetic wound which is positive for Acinetobacter and MRSA. Psychiatry has been consulted for "severe anxiety." Patient also reportedly informed the nurse on 12/19/2021 that he wanted to kill himself. Upon evaluation by psychiatry, the patient is currently alert and oriented in all spheres. The patient continues to endorse significant generalized pain all over his body. However, the patient vehemently denies any psychiatric issues or concerns. In regards to depressive symptoms, patient denies any hopelessness, helplessness, change in appetite, psychomotor slowing, or previous suicide attempts. He expresses that due to his pain, he will make statements that he does not want to live anymore however he vehemently denies any desire to ever try to kill himself. He reports that he is trying to survive. He states that he was making figure speech in regards to his pain management. He vehemently denies any suicidal or homicidal ideation, intention, and/or plan. He denies any auditory or visual hallucinations. He reports no paranoia or other delusions. In regards to his anxiety, the patient is primarily concerned with his pain. He is denying any panic attacks. The patient denies any significant history of substance use aside from one cigarette per day. He does admit to nonadherence with his medications but continues to inform this provider that pain often causes him to feel more confused and loose track of time. PAST PSYCHIATRIC HISTORY: Patient reports no previous psychiatric history. Patient denies being on any psychiatric medications. Patient denies any previous psychiatric hospitalizations. Patient denies any psychiatric outpatient follow- up. Patient denies any history of suicide attempts in the past. PAST MEDICAL HISTORY: Past Medical History: CVA/TIA, Diabetes Mellitus, Hypertension Additional Past Medical History / Comment(s): 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), MRSA, VRE Date of last positivie culture/infection: 11/30/21 VRE; 11/11/21-MRSA MDRO Source:: Blood-VRE; Right heel-MRSA & MDRO Additional Past Surgical History / Comment(s): BKA right leg Past Anesthesia/Blood Transfusion Reactions: No Reported Reaction Past Psychological History: No Psychological Hx Reported Smoking Status: Current every day smoker Past Alcohol Use History: None Reported Past Drug Use History: None Reported ALLERGIES: Ampicillin, sulbactam CHEMICAL DEPENDENCY HISTORY: Patient denies any alcohol or illicit drug use. He denies any marijuana use. Reportedly, the patient smoked 2 packs per day for 45 years up until 10/2021. Patient reports he smokes 1 cigarette per day now. FAMILY PSYCHIATRIC/SUBSTANCE USE HISTORY: No reported family psychiatric history. SOCIAL HISTORY: Patient is currently a resident at [facility]. 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 He denies any history or legal issues. MENTAL STATUS EXAM: General Appearance: Patient appears to be stated age is alert, pleasant, and cooperative. Patient appears to have fair hygiene and grooming wearing hospital gown with fair eye contact. Behavior: Patient is calmly lying down in bed with slightly elevated psychomotor activity secondary to generalized body pain. Patient is able to laugh and make appropriate jokes to his situation. Speech: Patient's speech is fluent and nonpressured. Mood/Affect: Patient reports their mood is "just in pain", affect is congruent Suicidality/Homicidality: Patient denies having any suicidal or homicidal ideation intent or plan. Perceptions: Patient denies any visual hallucinations and denies any auditory hallucinations Though content/process: There is no evidence of any delusional thought content and thought process is linear and goal-directed. Memory and concentration: AOX3, grossly intact for the purposes of this session. Can spell "WORLD" backwards Judgment and insight: Fair IMPRESSIONS: Adjustment disorder, with mixed anxiety and depressed mood Chronic encephalomalacia involving the right frontal lobe Right heel diabetic wound COPD CKD stage III Diabetes PLAN: -At this time patient DOES NOT meet criteria for inpatient psychiatric admission. Currently, the patient is currently denying any suicidal or homicidal ideation, intention, and/or plan. He reports no prior attempts at suicide. He denies any previous psychiatric history. The patient vehemently states that he was making figure speech in regards to his pain management. 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 May consider increasing gabapentin as it has been shown to off-label help with anxiety in addition to helping with neuropathic pain. -Psychiatry will sign off at this point, please contact with any questions or reconsult us if necessary. Thank you for this consult. 12/20/21 10:06
--- NOTE | 2021-12-20 11:01 | P.PN ---
Subjective Progress Note Date: 12/19/21 Patient was seen for a follow-up. Patient continues to moan and groan. Continues to complain of right leg pain. Patient is refusing telemetry monitoring. Earlier it was sinus rhythm, sinus tachycardia with couplets, PVCs and the heart rate and 130s. Objective - Vital Signs Vital signs: Vital Signs Temp 98.7 F 12/20/21 04:06 Pulse 84 12/20/21 04:06 Resp 18 12/20/21 04:06 BP 123/67 12/20/21 04:06 Pulse Ox 99 12/20/21 04:06 Intake & Output 12/19/21 12/20/21 12/20/21 18:59 06:59 18:59 Intake Total 980 100 Output Total 550 Balance 430 100 Weight 108.046 kg Intake: Intake, IV Titration 100 Amount Cefepime 2 gm In Sodium 100 Chloride 0.9% 100 ml @ 25 mls/hr IVPB Q12HR [facility] Rx #:[id number] Oral 980 Output: Urine 550 Other: Voiding Method Urinal Urinal - Exam Essentially unchanged. - Labs CBC & Chem 7: 12/20/21 05:25 12/19/21 11:35 Labs: Abnormal Lab Results - Last 24 Hours (Table) 12/19/21 12/19/21 12/19/21 Range/Units 11:35 11:37 16:26 RBC (4.30-5.90) m/uL Hgb (13.0-17.5) gm/dL Hct (39.0-53.0) % MCHC (31.0-37.0) g/dL RDW (11.5-15.5) % Lymphocytes # (1.0-4.8) k/uL Chloride 112 H (98-107) mmol/L BUN 37 H (9-20) mg/dL Creatinine 1.81 H (0.66-1.25) mg/dL Glucose 207 H (74-99) mg/dL POC Glucose (mg/dL) 220 H 132 H (75-99) mg/dL Calcium 8.0 L (8.4-10.2) mg/dL 12/19/21 12/19/21 12/20/21 Range/Units 19:01 19:59 05:25 RBC 2.73 L 2.49 L (4.30-5.90) m/uL Hgb 7.6 L 7.0 L (13.0-17.5) gm/dL Hct 25.8 L 23.7 L (39.0-53.0) % MCHC 29.5 L 29.6 L (31.0-37.0) g/dL RDW 15.7 H 15.9 H (11.5-15.5) % Lymphocytes # 0.8 L (1.0-4.8) k/uL Chloride (98-107) mmol/L BUN (9-20) mg/dL Creatinine (0.66-1.25) mg/dL Glucose (74-99) mg/dL POC Glucose (mg/dL) 197 H (75-99) mg/dL Calcium (8.4-10.2) mg/dL 12/20/21 Range/Units 07:04 RBC (4.30-5.90) m/uL Hgb (13.0-17.5) gm/dL Hct (39.0-53.0) % MCHC (31.0-37.0) g/dL RDW (11.5-15.5) % Lymphocytes # (1.0-4.8) k/uL Chloride (98-107) mmol/L BUN (9-20) mg/dL Creatinine (0.66-1.25) mg/dL Glucose (74-99) mg/dL POC Glucose (mg/dL) 150 H (75-99) mg/dL Calcium (8.4-10.2) mg/dL Assessment and Plan Assessment: * Abnormal computed tomography scan of head, with evidence of chronic encepha lomalacia involving the right frontal lobe. This is not subacute as mentioned in the radiology report. It is most likely chronic. Patient admits that he had history of a stroke, which affected his left side of the body. I did not notice any obvious residual deficit at this time. * Peripheral arterial disease * Diabetic foot ulcers * History of left below-knee amputation * Maculopapular rash, probable drug ALLERGY. * Diabetes * Hypertension * Tobacco use Plan: * Patient's CT head was reviewed. The encephalomalacia is old, does not appear "subacute", as mentioned in the report. * Carotid Doppler revealed subtotal occlusion right ICA. Measurements suggest severe stenosis left ICA. CTA can be considered for further evaluation. Antegrade for both vertebral arteries. Vascular surgery already on board for peripheral arterial disease. * Continue Brilinta 90 mg twice a day * Lipid panel from 11/12/2021 revealed cholesterol 244, LDL 169, HDL 33 and triglycerides 206. We will start Lipitor 40 mg daily. (Warning came up as interaction with daptomycin. I spoke to pharmacist and he said that Dr. Nicole has previously cleared statins with daptomycin in the past.) * Hemoglobin A1c 8.9 on 11/10/2021. Recommend optimize control of diabetes to target A1c < 7.0 * Patient's 2-D echo from 11/10/2021 revealed normal left ventricular size, borderline concentric LVH, EF is between 60-65%. Right ventricle was mildly enlarged. * Aggressive control of stroke risk factors. * Recommended tobacco cessation. * Other medical management as per IM and other specialties.
[2021-12-20] MEDS: HYDROmorphone 0.5 MG/0.5 ML SYRINGE IVP PRN ×3 (11:04→19:36)
[2021-12-20] MEDS: COLLAGENASE 250 UNIT/GM OINTMENT 30 GM TUBE TOPICAL SCH (11:07)
--- NOTE | 2021-12-20 11:25 | P.CONS ---
History of Present Illness - Reason for Consult Consult date: 12/20/21 wound care - History of Present Illness 61-year-old male with a PMH of type II DM, PVD status post left BKA, seizure disorder, and hypertension who presents to the emergency room with complaints of right leg and foot pain and redness. The patient reports that he underwent his left BKA surgery 6 months ago due to a nonhealing ulcer in [place]. He reports being confined to a wheelchair and not taking care of his right leg over the past 2 weeks. Patient was scheduled to be seen on 12/18 in the wound care center however he was unable to make the appointment. Patient presents with erythema to the right lower extremity with 2 open ulcerations. Reports worsening erythema of the leg as well as an ulcer on the right heel. Patient has a Barbosa grade 3 ulceration to the right lateral calcaneus. The ulceration measures approximately 1 x 1.5 x 0.4 cm. Ulceration wound that shows minimal granulation was significant amount of slough and nonviable tissue. Wound edges are attached to the wound base there is no undermining noted. The periwound shows excoriation. Patient underwent a surgical I&D yesterday. He did have a foot MRI to rule out osteomyelitis which no osteomyelitis was seen. Patient states that the ulceration was fine and healed until somebody opened it up. Review Of Systems: Constitutional: No fever, no chills, no night sweats. No weight change. No weakness, fatigue or lethargy. No daytime sleepiness. Integumentary:reports wounds, no lesions. No rash or pruritus. No unusual bruising. No change in hair or nails. Physical exam: General Appearance: Alert, cooperative, no distress, appears stated age. Skin: See HPI all other Skin color, texture, tugor normal, no rashes or lesions. Neurologic: Alert oriented x3 Assessment: 1. Nonhealing ulcer with muscle involvement without necrosis right calcaneus 2. Diabetic foot ulcer Barbosa grade 3 Plan: 1. Apply Santyl, saline moistened gauze, dry gauze and rolled gauze and secure with paper tape. Change daily. Patient will benefit from advanced wound care and wound care center. We will happy to see him in the wound care center upon discharge. Thank you for the consultation any questions his contact the wound care center DNP note has been reviewed and discussed with Dr. Rios and the impression and plan of care has been directed as dictated. 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), MRSA, VRE Year Discovered:: 11/30/21 VRE; 11/11/21-MRSA MDRO Source:: Blood-VRE; Right heel-MRSA & MDRO Additional Past Surgical History / Comment(s): BKA right leg Past Anesthesia/Blood Transfusion Reactions: No Reported Reaction Past Psychological History: No Psychological Hx Reported Smoking Status: Current every day smoker Past Alcohol Use History: None Reported Past Drug Use History: None Reported Medications and Allergies Home Medications Medication Instructions Recorded Confirmed Type Carvedilol [Coreg] 12.5 mg PO BID 11/09/21 12/18/21 History Ketoconazole 2% Shampoo [Nizoral] 1 applic TOPICAL WESA 11/09/21 12/18/21 History Ticagrelor [Brilinta] 90 mg PO BID 11/09/21 12/18/21 History Ampicillin-Sulbactam [Unasyn] 3 gm IVPB Q6HR 27 Days #108 each 11/30/21 12/18/21 Rx Bumetanide [BUMEX] 1 mg PO BID 30 Days #60 tablet 11/30/21 12/18/21 Rx Tamsulosin [Flomax] 0.4 mg PO PC-BRKFST #30 11/30/21 12/18/21 Rx Budesonide [Pulmicort] 1 mg INHALATION RT-BID ml 12/05/21 12/18/21 Rx Insulin Lispro [humaLOG Kwikpen] 10 units SQ AC-TID 30 Days #6 ml 12/05/21 12/18/21 Rx Gabapentin [Neurontin] 100 mg PO DAILY 3 Days #3 cap 12/11/21 12/18/21 Rx Gabapentin [Neurontin] 300 mg PO HS #3 cap 12/11/21 12/18/21 Rx Acetaminophen Tab [Tylenol] 650 mg PO Q6H PRN 12/18/21 12/18/21 History DAPTOmycin [Cubicin] 500 mg IV HS 12/18/21 12/18/21 History Insulin Detemir (Levemir) [Levemir] 10 unit SQ HS 12/18/21 12/18/21 History Ipratropium-Albuterol Nebulize 3 ml INHALATION RT-Q8H 12/18/21 12/18/21 History [Duoneb 0.5 mg-3 mg/3 ml Soln] hydrALAZINE HCL [Apresoline] 100 mg PO BID 12/18/21 12/18/21 History levETIRAcetam [Keppra] 1,000 mg PO BID@0800,2000 12/18/21 12/18/21 History oxyCODONE-APAP 10-325MG [Percocet 1 tab PO Q4H PRN 12/18/21 12/18/21 History 10-325 mg] rOPINIRole HCL [Requip] 0.5 mg PO TID@0500,1300,2100 12/18/21 12/18/21 History Allergies Allergy/AdvReac Type Severity Reaction Status Date / Time ampicillin [From Unasyn] Allergy Rash/Hives Verified 12/20/21 09:50 sulbactam [From Unasyn] Allergy Rash/Hives Verified 12/20/21 09:50 Physical Exam Vitals: Vital Signs Temp Pulse Pulse Resp BP Pulse Ox 12/20/21 04:06 98.7 F 84 18 123/67 99 12/19/21 23:04 98.4 F 84 16 123/64 99 12/19/21 20:00 98.8 F 83 16 145/76 96 12/19/21 16:47 82 12/19/21 16:34 80 12/19/21 16:00 98.3 F 85 22 154/79 99 12/19/21 13:53 88 22 12/19/21 12:00 98.4 F 88 22 144/71 94 L Intake and Output 12/19/21 12/20/21 12/20/21 22:59 06:59 14:59 Intake Total 980 100 Output Total 550 Balance 430 100 Intake: Intake, IV Titration 100 Amount Cefepime 2 gm In Sodium 100 Chloride 0.9% 100 ml @ 25 mls/hr IVPB Q12HR [facility] Rx #:[id number] Oral 980 Output: Urine 550 Other: Voiding Method Urinal Results CBC & Chem 7: 12/20/21 05:25 12/19/21 11:35 Labs: Abnormal Lab Results - Last 24 Hours (Table) 12/19/21 12/19/21 12/19/21 Range/Units 11:35 11:37 16:26 RBC (4.30-5.90) m/uL Hgb (13.0-17.5) gm/dL Hct (39.0-53.0) % MCHC (31.0-37.0) g/dL RDW (11.5-15.5) % Lymphocytes # (1.0-4.8) k/uL Chloride 112 H (98-107) mmol/L BUN 37 H (9-20) mg/dL Creatinine 1.81 H (0.66-1.25) mg/dL Glucose 207 H (74-99) mg/dL POC Glucose (mg/dL) 220 H 132 H (75-99) mg/dL Calcium 8.0 L (8.4-10.2) mg/dL 12/19/21 12/19/21 12/20/21 Range/Units 19:01 19:59 05:25 RBC 2.73 L 2.49 L (4.30-5.90) m/uL Hgb 7.6 L 7.0 L (13.0-17.5) gm/dL Hct 25.8 L 23.7 L (39.0-53.0) % MCHC 29.5 L 29.6 L (31.0-37.0) g/dL RDW 15.7 H 15.9 H (11.5-15.5) % Lymphocytes # 0.8 L (1.0-4.8) k/uL Chloride (98-107) mmol/L BUN (9-20) mg/dL Creatinine (0.66-1.25) mg/dL Glucose (74-99) mg/dL POC Glucose (mg/dL) 197 H (75-99) mg/dL Calcium (8.4-10.2) mg/dL 12/20/21 Range/Units 07:04 RBC (4.30-5.90) m/uL Hgb (13.0-17.5) gm/dL Hct (39.0-53.0) % MCHC (31.0-37.0) g/dL RDW (11.5-15.5) % Lymphocytes # (1.0-4.8) k/uL Chloride (98-107) mmol/L BUN (9-20) mg/dL Creatinine (0.66-1.25) mg/dL Glucose (74-99) mg/dL POC Glucose (mg/dL) 150 H (75-99) mg/dL Calcium (8.4-10.2) mg/dL Assessment and Plan (1) Non-pressure chronic ulcer of right heel and midfoot with muscle involvement without evidence of necrosis Current Visit: No Status: Acute Code(s): L97.415 - NON-PRS CHR ULC OF R HEEL/MIDFT W MSL INVL W/O EVD OF NECR SNOMED Code(s): 094755271 (2) Non-pressure chronic ulcer of other part of right lower leg with fat layer exposed Current Visit: Yes Status: Acute Code(s): L97.812 - NON-PRS CHRONIC ULCER OTH PRT R LOW LEG W FAT LAYER EXPOSED SNOMED Code(s): 12568193 (3) Diabetic foot ulcer Current Visit: Yes Status: Acute Code(s): E11.621 - TYPE 2 DIABETES MELLITUS WITH FOOT ULCER; L97.509 - NON-PRESSURE CHRONIC ULCER OTH PRT UNSP FOOT W UNSP SEVERITY SNOMED Code(s): 084570865
[2021-12-20] MEDS: DAPTOmycin 500 MG in SODIUM CHLORIDE 0.9% 50 ML IVPB SCH (11:28)
[2021-12-20] MEDS ORDERED: COLLAGENASE 250 UNIT/GM OINTMENT 30 GM TUBE TOPICAL SCH (11:30)
[2021-12-20] MEDS: SODIUM CHLORIDE 0.9% 1,000 ML IV SCH (11:37)
[2021-12-20 11:48] LABS: Glucose,Whole Blood 112 mg/dL (75-99)
--- NOTE | 2021-12-20 11:53 | P.PN ---
Subjective Progress Note Date: 12/20/21 Principal diagnosis: Right heel wound Patient is seen and examined is a follow-up today. He was initially scheduled to possibly undergo right heel debridement, however patient is being worked up for altered mental status, possible TIA. He was reexamined today and feel that wound care can be managed outpatient with the wound care clinic. Patient is afebrile. No leukocytosis. Patient underwent carotid duplex that showed subtotal occlusion of the right ICA, severe stenosis of left ICA. Objective - Vital Signs Vital signs: Vital Signs Temp 98.7 F 12/20/21 04:06 Pulse 84 12/20/21 04:06 Resp 18 12/20/21 04:06 BP 123/67 12/20/21 04:06 Pulse Ox 99 12/20/21 04:06 Intake & Output 12/19/21 12/20/21 12/20/21 18:59 06:59 18:59 Intake Total 980 100 Output Total 550 Balance 430 100 Weight 108.046 kg Intake: Intake, IV Titration 100 Amount Cefepime 2 gm In Sodium 100 Chloride 0.9% 100 ml @ 25 mls/hr IVPB Q12HR [facility] Rx #:[id number] Oral 980 Output: Urine 550 Other: Voiding Method Urinal Urinal - Exam General appearance: The patient is alert, oriented, appears in no acute distress. HET: Head is normocephalic and atraumatic. Pupils are equal and reactive. Neck: Supple without lymphadenopathy. Trachea midline. No audible carotid bruit. Heart: S1 S2. Regular rate and rhythm. Lungs: Clear to auscultation bilaterally. Abdomen: Soft, nontender, nondistended. Extremities: Left [id number] amputation stump well-healed. Right jara with venous ulcer, right diabetic heel wound with ischemic/nonviable tissue Neurological: Alert and oriented 1. - Labs CBC & Chem 7: 12/20/21 05:25 12/19/21 11:35 Labs: Abnormal Lab Results - Last 24 Hours (Table) 12/19/21 12/19/21 12/19/21 Range/Units 11:35 11:37 16:26 RBC (4.30-5.90) m/uL Hgb (13.0-17.5) gm/dL Hct (39.0-53.0) % MCHC (31.0-37.0) g/dL RDW (11.5-15.5) % Lymphocytes # (1.0-4.8) k/uL Chloride 112 H (98-107) mmol/L BUN 37 H (9-20) mg/dL Creatinine 1.81 H (0.66-1.25) mg/dL Glucose 207 H (74-99) mg/dL POC Glucose (mg/dL) 220 H 132 H (75-99) mg/dL Calcium 8.0 L (8.4-10.2) mg/dL 12/19/21 12/19/21 12/20/21 Range/Units 19:01 19:59 05:25 RBC 2.73 L 2.49 L (4.30-5.90) m/uL Hgb 7.6 L 7.0 L (13.0-17.5) gm/dL Hct 25.8 L 23.7 L (39.0-53.0) % MCHC 29.5 L 29.6 L (31.0-37.0) g/dL RDW 15.7 H 15.9 H (11.5-15.5) % Lymphocytes # 0.8 L (1.0-4.8) k/uL Chloride (98-107) mmol/L BUN (9-20) mg/dL Creatinine (0.66-1.25) mg/dL Glucose (74-99) mg/dL POC Glucose (mg/dL) 197 H (75-99) mg/dL Calcium (8.4-10.2) mg/dL 12/20/21 Range/Units 07:04 RBC (4.30-5.90) m/uL Hgb (13.0-17.5) gm/dL Hct (39.0-53.0) % MCHC (31.0-37.0) g/dL RDW (11.5-15.5) % Lymphocytes # (1.0-4.8) k/uL Chloride (98-107) mmol/L BUN (9-20) mg/dL Creatinine (0.66-1.25) mg/dL Glucose (74-99) mg/dL POC Glucose (mg/dL) 150 H (75-99) mg/dL Calcium (8.4-10.2) mg/dL Assessment and Plan Assessment: 1. Right diabetic heel ulcer 2. Right lower extremity venous ulcer 3. Right ICA subtotal occlusion, severe left ICA stenosis 4. Altered mental status changes 5. History of CVA 6. Diabetes mellitus 7. History of left BKA 8. Obesity 9. Chronic kidney disease Plan: 1. Resume Brilinta 2. Continue with antibiotic recommendation from infectious disease 3. Pain management per primary team 4. Continue Lipitor 40 mg daily 5. No longer planning surgical debridement at this time. Patient to follow-up with outpatient wound clinic for further local wound care 6. Continue local wound care as ordered 7. Patient to follow-up within the next 1-2 weeks with vascular surgery for further evaluation/treatment of carotid stenosis Thank you for this consultation, we will continue to follow The impression and plan of care has been dictated as directed. Dr. Marie I performed a history and examination of this patient, discussed the same with the dictator. I agree with the dictator's note ,documented as a scribe. Any additional findings or plans will be noted.
--- NOTE | 2021-12-20 12:13 | P.PN ---
Progress Note - Text Progress Note Date: 12/20/21 Chief Complaint: Right leg pain This is a 61-year-old patient, now following with Dr. Smalls at [facility] Chronic stable medical conditions include diabetes, hypertension, left below- knee amputation. admitted to the hospital on 11/09/2021 with a right foot nonhealing ulcer. Had been a smoker up to recently. Wound on right heel, wound cultures were positive for Acinetobacter and MRSA. MRI was negative for osteomyelitis. Patient was discharged on IV Unasyn and daptomycin. discharged on BiPAP. He had desaturated there and he was transferred as patient became short of breath. Patient was subsequently admitted from December 01 through December 11 Admitted with acute COPD exacerbation, pneumonia, right heel wound. IV Unasyn daptomycin continued. Bronchodilators. Steroids. For neuropathic pain , Neurontin was increased. seen by pain services. Patient was discharged to rehab Patient now presents complaining of increasing pain in the right lower extremity. That seems to be his main complaint. Has been refusing his medications last 2 days. No fever no chills reported. Patient seen by Dr. Montalvo in November. Arterial ultrasound was a suboptimal study at that time. Due to noncooperation. Short slightly decreased TBI. Patient has dressing on the right lower extremity for blisters. Also has wounds. No sedation patient was seen by pain services. Patient also has a maculopapular rash. Nonitching. Nontender. December 19: Patient Neurontin was increased. On IV Dilaudid. Still complaining of significant pain in the right leg. Antibiotic is being changed to IV cefepime. Discussed with ID. For pain patient is on Neurontin, Dilaudid, Percocet. Seen by pain services. Continue current medications. Discussed with patient. Patient earlier today told the nurse that he wanted to kill himself. Psychiatry consulted. December 20: Patient formal comfortable today. Seen by Dr. Marie by vascular. Not for I&D of the right heel of the current time. Patient is hungry for lunch. Was nothing by mouth for breakfast. Active Medications Acetaminophen (Acetaminophen Tab 325 Mg Tab) 650 mg PO Q6H PRN PRN Reason: Pain or Fever > 100.5 Albuterol/Ipratropium (Ipratropium-Albuterol 3 Ml Neb) 3 ml INHALATION RT-TID [facility] Last Admin: 12/20/21 08:55 Dose: Not Given Documented by: Albuterol/Ipratropium (Ipratropium-Albuterol 3 Ml Neb) 3 ml INHALATION RT-Q2H PRN PRN Reason: Shortness Of Breath Or Wheezing Atorvastatin Calcium (Atorvastatin 40 Mg Tab) 40 mg PO HS [facility] Budesonide (Budesonide 1 Mg/2 Ml Nebu) 1 mg INHALATION RT-BID [facility] Last Admin: 12/20/21 08:55 Dose: Not Given Documented by: Bumetanide (Bumetanide 1 Mg Tab) 1 mg PO BID [facility] Last Admin: 12/19/21 21:23 Dose: 1 mg Documented by: Carbamide Perox/Anhydrous Glycerin (Carbamide Peroxide 6.5% Drops 15 Ml Btl) 5 drops BOTH EARS BID [facility] Carvedilol (Carvedilol 12.5 Mg Tab) 12.5 mg PO BID-W/MEALS [facility] Last Admin: 12/20/21 09:35 Dose: 12.5 mg Documented by: Collagenase (Collagenase 250 Unit/Gm Ointment 30 Gm Tube) 1 applic TOPICAL DAILY [facility]; Protocol Last Admin: 12/20/21 11:07 Dose: 1 applic Documented by: Gabapentin (Gabapentin 300 Mg Cap) 300 mg PO BID [facility] Last Admin: 12/20/21 09:35 Dose: 300 mg Documented by: Hydralazine HCl (Hydralazine Hcl 50 Mg Tab) 100 mg PO TID [facility] Last Admin: 12/20/21 09:35 Dose: 100 mg Documented by: Hydromorphone HCl (Hydromorphone 0.5 Mg/0.5 Ml Syringe) 0.5 mg IVP Q3HR PRN PRN Reason: Moderate Pain Last Admin: 12/20/21 11:04 Dose: 0.5 mg Documented by: Daptomycin 500 mg/ Sodium (Chloride) 50 mls @ 100 mls/hr IVPB Q24H [facility] Last Admin: 12/20/21 11:28 Dose: 100 mls/hr Documented by: Sodium Chloride (Saline 0.9%) 1,000 mls @ 20 mls/hr IV .Q24H [facility] Last Admin: 12/20/21 11:37 Dose: 20 mls/hr Documented by: Cefepime HCl 2 gm/ Sodium (Chloride) 100 mls @ 25 mls/hr IVPB Q12HR [facility]; Protocol Last Admin: 12/20/21 09:33 Dose: 25 mls/hr Documented by: Insulin Aspart (Insulin Aspart (Novolog) 100 Unit/Ml Vial) 5 unit SQ AC-TID [facility] Last Admin: 12/20/21 09:35 Dose: 5 unit Documented by: Insulin Detemir (Insulin Detemir (Levemir) 100 Unit/Ml Syr) 18 unit SQ HS [facility] Last Admin: 12/19/21 21:22 Dose: 18 unit Documented by: Levetiracetam (Levetiracetam 500 Mg Tab) 1,000 mg PO BID@0800,2000 [facility] Last Admin: 12/20/21 09:35 Dose: 1,000 mg Documented by: Lidocaine (Lidocaine 5% Patch) 1 patch TOPICAL DAILY [facility]; Protocol Last Admin: 12/20/21 09:52 Dose: 1 patch Documented by: Naloxone HCl (Naloxone 0.4 Mg/Ml 1 Ml Vial) 0.2 mg IV Q2M PRN PRN Reason: Opioid Reversal Oxycodone/Acetaminophen (Oxycodone-Apap 10-325mg 1 Each Tab) 1 each PO Q4H PRN PRN Reason: Pain Last Admin: 12/20/21 09:40 Dose: 1 each Documented by: Ropinirole HCl (Ropinirole Hcl 0.25 Mg Tab) 0.5 mg PO TID@0500,1300,2100 [facility] Last Admin: 12/20/21 05:46 Dose: 0.5 mg Documented by: Tamsulosin HCl (Tamsulosin 0.4 Mg Cap.Er.24h) 0.4 mg PO -BRKFST [facility] Last Admin: 12/20/21 09:35 Dose: 0.4 mg Documented by: Ticagrelor (Ticagrelor 90 Mg Tab) 90 mg PO BID [facility] Last Admin: 12/20/21 09:34 Dose: 90 mg Documented by: Past medical history to include: Stroke, diabetes, hypertension, left below-knee amputation, right heel wound, PAD Social history: [facility] [place], smoked 2 packs a day for 45 years up October 2021. No alcohol. . 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 Conjunctiva normal. HEENT: External appearance of nose and ears normal, oral cavity grossly normal. NECK: JVD not raised; masses not palpable. HEART: First and second heart sounds are normal; no edema. LUNGS: Respiratory rate increased; decreased breath sounds ABDOMEN: Soft, nontender, liver spleen not palpable, no masses palpable. PSYCH: Alert and oriented x3; mood and affect very anxious DERMATOLOGICAL: Maculopapular rash. Diffuse MUSCULOSKELETAL:No Clubbing/cyanosis;muscles-grossly intact. EXTREMITIES: Right heel wound. Dressing right lower extremity. INVESTIGATIONS, reviewed in the clinical context: December 20: Hemoglobin 7 December 19: Potassium 5.1 BUN 37 creatinine 1.81 White count 8.3 hemoglobin 7 platelets 256 potassium 5.3 BUN 38 creatinine 1.9 to EKG tracing personally reviewed by me-normal sinus rhythm. Grade [address]-T changes and changes Chest x-ray film personally reviewed by me-portable/infiltrates possibly chronic CT scan brain without contrast: Possible subacute right frontal parietal cortical infarct. Previous labs: 12/11/2021: Potassium 5.5 creatinine 1.86 2-D echocardiogram: EF 60 - 65% Doppler ultrasound [December 10] right lower extremity: Negative for DVT Assessment and plan: -Chronic encephalomalacia involving the right frontal lobe. [Not subacute stroke as mentioned in the report.]. Seen by Dr. Wolfe from neurology. No further workup. - COPD in a previous smoker: DuoNeb 3 times a day. Pulmicort nebulizer twice a day. -Right heel diabetic wound negative for osteomyelitis per recent MRI.: Worsening Previous Culture positive for Acinetobacter, MRSA IV Unasyn changed over to IV cefepime., IV daptomycin. to complete a total of 6 weeks. Patient seen by vascular Dr. Marie.: For debridement -chronic hypoxic respiratory failure from COPD currently on 4 L of oxygen. -Normocytic anemia/iron deficiency anemia -Chronic kidney disease stage III likely diabetic nephropathy and hypertensive nephrosclerosis Creatinine 1.68 on November 09 -Diabetes mellitus type 2, chronically on insulin: Controlled with hypoglycemia Increase Levemir 18 units. Decrease to 5 units with meals Humalog. Sliding scale. -Essential hypertension Coreg 12.5 mg twice a day hydralazine 100 mg 2 times a day -Diabetic peripheral neuropathy: Neurontin to 300 mg twice a day -Restless leg syndrome: Requip 0.5 mg by mouth 3 times a day -Left below-knee amputation -PAD Given increased pain consult Dr. Montalvo. -Pain management Pain management services consulted. Continue current medications -Full code IV cefepime. No debridement currently per vascular.. Continue current treatment plan.
[2021-12-20] MEDS: BUMETANIDE 1 MG TAB PO SCH ×2 (13:41→20:56)
[2021-12-20] MEDS: IPRATROPIUM-ALBUTEROL 3 ML NEB INHALATION PRN (15:47)
[2021-12-20 17:25] LABS: Glucose,Whole Blood 247 mg/dL (75-99)
[2021-12-20] MEDS: ASPIRIN 81 MG PO SCH (18:19)
[2021-12-20 19:57] LABS: Glucose,Whole Blood 153 mg/dL (75-99)
[2021-12-20] MEDS: ATORVASTATIN 40 MG TAB PO SCH (20:56)
[2021-12-20] MEDS: INSULIN DETEMIR (LEVEMIR) 100 UNIT/ML SYR SQ SCH (20:57)
[2021-12-20] MEDS: CARBAMIDE PEROXIDE 6.5% DROPS 15 ML BTL BOTH EARS SCH (21:50)
[2021-12-21] MEDS: HYDROmorphone 0.5 MG/0.5 ML SYRINGE IVP PRN ×6 (00:47→22:04)
[2021-12-21] MEDS: BUDESONIDE 1 MG/2 ML NEBU INHALATION SCH ×2 (07:31→20:04)
[2021-12-21] MEDS: IPRATROPIUM-ALBUTEROL 3 ML NEB INHALATION SCH ×3 (07:31→20:04)
[2021-12-21 07:32] LABS: Glucose,Whole Blood 121 mg/dL (75-99)
[2021-12-21] MEDS: oxyCODONE-APAP 10-325MG 1 EACH TAB PO PRN ×4 (08:24→23:32)
[2021-12-21] MEDS: carvediloL 12.5 MG TAB PO SCH ×2 (08:25→16:51)
[2021-12-21] MEDS: GABAPENTIN 300 MG CAP PO SCH ×2 (08:25→21:59)
[2021-12-21] MEDS: TAMSULOSIN 0.4 MG CAP.ER.24H PO SCH (08:25)
[2021-12-21] MEDS: ASPIRIN 81 MG PO SCH (08:25)
[2021-12-21] MEDS: levETIRAcetam 500 MG TAB PO SCH ×2 (08:25→21:57)
[2021-12-21] MEDS: DAPTOmycin 500 MG in SODIUM CHLORIDE 0.9% 50 ML IVPB SCH ×2 (08:25→08:32)
[2021-12-21] MEDS: INSULIN ASPART (NovoLOG) 100 UNIT/ML VIAL SQ SCH ×3 (08:26→17:25)
[2021-12-21] MEDS: hydrALAZINE HCL 50 MG TAB PO SCH ×3 (08:32→21:59)
[2021-12-21] MEDS: COLLAGENASE 250 UNIT/GM OINTMENT 30 GM TUBE TOPICAL SCH (08:33)
[2021-12-21] MEDS: BUMETANIDE 1 MG TAB PO SCH ×2 (08:57→21:58)
[2021-12-21] MEDS: TICAGRELOR 90 MG TAB PO SCH ×2 (08:58→21:59)
[2021-12-21] MEDS: CARBAMIDE PEROXIDE 6.5% DROPS 15 ML BTL BOTH EARS SCH ×2 (09:31→21:58)
[2021-12-21] MEDS: LIDOCAINE 5% PATCH TOPICAL SCH (09:31)
[2021-12-21] MEDS: CEFEPIME 2 GM in SODIUM CHLORIDE 0.9% 100 ML IVPB SCH ×2 (09:32→21:58)
--- NOTE | 2021-12-21 09:48 | P.PN ---
Subjective Progress Note Date: 12/20/21 Patient was seen for a follow-up. Patient is more alert and awake, less moaning and groaning. Denies any new focal symptoms. Objective - Vital Signs Vital signs: Vital Signs Temp 98.4 F 12/20/21 12:00 Pulse 85 12/20/21 15:58 Resp 18 12/20/21 12:00 BP 116/64 12/20/21 12:00 Pulse Ox 99 12/20/21 12:00 Intake & Output 12/19/21 12/20/21 12/20/21 18:59 06:59 18:59 Intake Total 980 100 Output Total 550 Balance 430 100 Weight 108.046 kg Intake: Intake, IV Titration 100 Amount Cefepime 2 gm In Sodium 100 Chloride 0.9% 100 ml @ 25 mls/hr IVPB Q12HR [facility] Rx #:[id number] Oral 980 Output: Urine 550 Other: Voiding Method Urinal Urinal Indwelling Catheter - Exam Essentially unchanged. - Labs CBC & Chem 7: 12/20/21 05:25 12/19/21 11:35 Labs: Abnormal Lab Results - Last 24 Hours (Table) 12/19/21 12/19/21 12/20/21 Range/Units 19:01 19:59 05:25 RBC 2.73 L 2.49 L (4.30-5.90) m/uL Hgb 7.6 L 7.0 L (13.0-17.5) gm/dL Hct 25.8 L 23.7 L (39.0-53.0) % MCHC 29.5 L 29.6 L (31.0-37.0) g/dL RDW 15.7 H 15.9 H (11.5-15.5) % Lymphocytes # 0.8 L (1.0-4.8) k/uL POC Glucose (mg/dL) 197 H (75-99) mg/dL 12/20/21 12/20/21 12/20/21 Range/Units 07:04 11:46 17:24 RBC (4.30-5.90) m/uL Hgb (13.0-17.5) gm/dL Hct (39.0-53.0) % MCHC (31.0-37.0) g/dL RDW (11.5-15.5) % Lymphocytes # (1.0-4.8) k/uL POC Glucose (mg/dL) 150 H 112 H 247 H (75-99) mg/dL Assessment and Plan Assessment: * Abnormal computed tomography scan of head, with evidence of chronic encephalomalacia involving the right frontal lobe. This is not subacute as mentioned in the radiology report. It is most likely chronic. Patient admits that he had history of a stroke, which affected his left side of the body. I did not notice any obvious residual deficit at this time. * Bilateral carotid stenosis, with near complete occlusion on the right, and severe stenosis on the left. * Peripheral arterial disease * Diabetic foot ulcers * History of left below-knee amputation * Maculopapular rash, probable drug penicillin ALLERGY. * Diabetes * Hypertension * Tobacco use Plan: * Patient's CT head was reviewed. The encephalomalacia is old, does not appear "subacute", as mentioned in the report. * Carotid Doppler revealed subtotal occlusion right ICA. Measurements suggest severe stenosis left ICA. CTA high risk because of renal insufficiency. Discussed with vascular surgery team. They will consider CEA within 1-2 weeks. Patient probably will need bilateral CEA, right side at first because of "subtotal occlusion". * Continue Brilinta 90 mg twice a day. We will add aspirin 81 mg daily. Discussed with vascular surgery. * Lipid panel from 11/12/2021 revealed cholesterol 244, LDL 169, HDL 33 and triglycerides 206. We will start Lipitor 40 mg daily. (Warning came up as interaction with daptomycin. I spoke to pharmacist and he said that Dr. Nicole has previously cleared statins with daptomycin in the past.) * Hemoglobin A1c 8.9 on 11/10/2021. Recommend optimize control of diabetes to target A1c < 7.0 * Patient's 2-D echo from 11/10/2021 revealed normal left ventricular size, borderline concentric LVH, EF is between 60-65%. Right ventricle was mildly enlarged. * Aggressive control of stroke risk factors. * Recommended tobacco cessation. * Other medical management as per IM and other specialties.
--- NOTE | 2021-12-21 12:18 | P.PN ---
Subjective Progress Note Date: 12/21/21 Principal diagnosis: Right heel wound Patient is seen and examined is a follow-up today. Patient was admitted with altered mental status changes, neurology is following for possible TIA. Carotid duplex was ordered and completed yesterday, showing subtotal occlusion of the right ICA, severe stenosis of left ICA. Patient was seen by wound care, he will follow up outpatient with wound clinic for further local wound care including debridement. Patient remains afebrile. Objective - Vital Signs Vital signs: Vital Signs Temp 97.9 F 12/21/21 07:36 Pulse 87 12/21/21 07:44 Resp 18 12/21/21 07:36 BP 157/71 12/21/21 07:36 Pulse Ox 100 12/21/21 07:37 Intake & Output 12/20/21 12/21/21 12/21/21 18:59 06:59 18:59 Intake Total 180 Output Total 600 901 Balance -600 -721 Intake: Intake, IV Titration 180 Amount Cefepime 2 gm In Sodium 100 Chloride 0.9% 100 ml @ 25 mls/hr IVPB Q12HR [facility] Rx #:[id number] Sodium Chloride 0.9% 1, 80 000 ml @ 20 mls/hr IV . Q24H [facility] Rx#:[id number] Output: Urine 600 900 Stool 1 Other: Voiding Method Indwelling Catheter Indwelling Catheter # Bowel Movements 1 - Exam General appearance: The patient is alert, oriented, appears in no acute distress. HET: Head is normocephalic and atraumatic. Pupils are equal and reactive. Neck: Supple without lymphadenopathy. Trachea midline. Extremities: Left [id number] amputation stump well-healed. Right jara with venous ulcer, right diabetic heel wound with slough and ischemic/nonviable tissue, with no signs of infection. Neurological: Alert and oriented 2. - Labs CBC & Chem 7: 12/20/21 05:25 12/19/21 11:35 Labs: Abnormal Lab Results - Last 24 Hours (Table) 12/20/21 12/20/21 12/20/21 Range/Units 11:46 17:24 19:55 POC Glucose (mg/dL) 112 H 247 H 153 H (75-99) mg/dL 12/21/21 Range/Units 07:29 POC Glucose (mg/dL) 121 H (75-99) mg/dL Assessment and Plan Assessment: 1. Right diabetic heel ulcer 2. Right lower extremity venous ulcer 3. Right ICA subtotal occlusion, severe left ICA stenosis 4. Altered mental status changes 5. History of CVA 6. Diabetes mellitus 7. History of left BKA 8. Obesity 9. Chronic kidney disease Plan: 1. Continue Brilinta, and aspirin 2. Continue Lipitor 40 mg daily 3. No longer planning surgical debridement at this time. Patient to follow-up with outpatient wound clinic for further local wound care 4. Continue local wound care as ordered 5. Patient to follow-up within the next 1-2 weeks with vascular surgery for further evaluation/treatment of carotid stenosis Thank you for this consultation, the patient is cleared for discharge from a vascular surgical standpoint. The impression and plan of care has been dictated as directed. Dr. Marie I performed a history and examination of this patient, discussed the same with the dictator. I agree with the dictator's note ,documented as a scribe. Any additional findings or plans will be noted.
[2021-12-21] MEDS: SODIUM CHLORIDE 0.9% 1,000 ML IV SCH (12:36)
--- NOTE | 2021-12-21 14:05 | P.PN ---
Progress Note - Text Progress Note Date: 12/21/21 Chief Complaint: Right leg pain This is a 61-year-old patient, now following with Dr. Smalls at [facility] Chronic stable medical conditions include diabetes, hypertension, left below- knee amputation. admitted to the hospital on 11/09/2021 with a right foot nonhealing ulcer. Had been a smoker up to recently. Wound on right heel, wound cultures were positive for Acinetobacter and MRSA. MRI was negative for osteomyelitis. Patient was discharged on IV Unasyn and daptomycin. discharged on BiPAP. He had desaturated there and he was transferred as patient became short of breath. Patient was subsequently admitted from December 01 through December 11 Admitted with acute COPD exacerbation, pneumonia, right heel wound. IV Unasyn daptomycin continued. Bronchodilators. Steroids. For neuropathic pain , Neurontin was increased. seen by pain services. Patient was discharged to rehab Patient now presents complaining of increasing pain in the right lower extremity. That seems to be his main complaint. Has been refusing his medications last 2 days. No fever no chills reported. Patient seen by Dr. Montalvo in November. Arterial ultrasound was a suboptimal study at that time. Due to noncooperation. Short slightly decreased TBI. Patient has dressing on the right lower extremity for blisters. Also has wounds. No sedation patient was seen by pain services. Patient also has a maculopapular rash. Nonitching. Nontender. December 19: Patient Neurontin was increased. On IV Dilaudid. Still complaining of significant pain in the right leg. Antibiotic is being changed to IV cefepime. Discussed with ID. For pain patient is on Neurontin, Dilaudid, Percocet. Seen by pain services. Continue current medications. Discussed with patient. Patient earlier today told the nurse that he wanted to kill himself. Psychiatry consulted. December 20: Patient formal comfortable today. Seen by Dr. Marie by vascular. Not for I&D of the right heel of the current time. Patient is hungry for lunch. Was nothing by mouth for breakfast. December 21: Patient was reviewed by Dr. Marie from vascular. For outpatient debridement. Also to follow the patient for carotid artery stenosis. Suboptimal occlusion right ICA. Severe stenosis left ICA. Discussed with vascular. Discussed with ID. Per shoe caser pending authorization for [facility] Active Medications Acetaminophen (Acetaminophen Tab 325 Mg Tab) 650 mg PO Q6H PRN PRN Reason: Pain or Fever > 100.5 Albuterol/Ipratropium (Ipratropium-Albuterol 3 Ml Neb) 3 ml INHALATION RT-TID [facility] Last Admin: 12/21/21 11:50 Dose: Not Given Documented by: Albuterol/Ipratropium (Ipratropium-Albuterol 3 Ml Neb) 3 ml INHALATION RT-Q2H PRN PRN Reason: Shortness Of Breath Or Wheezing Last Admin: 12/20/21 15:47 Dose: 3 ml Documented by: Aspirin (Aspirin 81 Mg) 81 mg PO DAILY [facility] Last Admin: 12/21/21 08:25 Dose: 81 mg Documented by: Atorvastatin Calcium (Atorvastatin 40 Mg Tab) 40 mg PO HS [facility] Last Admin: 12/20/21 20:56 Dose: 40 mg Documented by: Budesonide (Budesonide 1 Mg/2 Ml Nebu) 1 mg INHALATION RT-BID [facility] Last Admin: 12/21/21 07:31 Dose: 1 mg Documented by: Bumetanide (Bumetanide 1 Mg Tab) 1 mg PO BID [facility] Last Admin: 12/21/21 08:57 Dose: 1 mg Documented by: Carbamide Perox/Anhydrous Glycerin (Carbamide Peroxide 6.5% Drops 15 Ml Btl) 5 drops BOTH EARS BID [facility] Last Admin: 12/21/21 09:31 Dose: 5 drops Documented by: Carvedilol (Carvedilol 12.5 Mg Tab) 12.5 mg PO BID-W/MEALS [facility] Last Admin: 12/21/21 08:25 Dose: 12.5 mg Documented by: Collagenase (Collagenase 250 Unit/Gm Ointment 30 Gm Tube) 1 applic TOPICAL DAILY [facility]; Protocol Last Admin: 12/21/21 08:33 Dose: 1 applic Documented by: Gabapentin (Gabapentin 300 Mg Cap) 300 mg PO BID [facility] Last Admin: 12/21/21 08:25 Dose: 300 mg Documented by: Hydralazine HCl (Hydralazine Hcl 50 Mg Tab) 100 mg PO TID [facility] Last Admin: 12/21/21 08:32 Dose: Not Given Documented by: Hydromorphone HCl (Hydromorphone 0.5 Mg/0.5 Ml Syringe) 0.5 mg IVP Q3HR PRN PRN Reason: Moderate Pain Last Admin: 12/21/21 12:51 Dose: 0.5 mg Documented by: Daptomycin 500 mg/ Sodium (Chloride) 50 mls @ 100 mls/hr IVPB Q24H [facility] Last Admin: 12/21/21 08:32 Dose: 100 mls/hr Documented by: Sodium Chloride (Saline 0.9%) 1,000 mls @ 20 mls/hr IV .Q24H [facility] Last Admin: 12/21/21 12:36 Dose: Not Given Documented by: Cefepime HCl 2 gm/ Sodium (Chloride) 100 mls @ 25 mls/hr IVPB Q12HR [facility]; Pro tocol Last Admin: 12/21/21 09:32 Dose: 25 mls/hr Documented by: Insulin Aspart (Insulin Aspart (Novolog) 100 Unit/Ml Vial) 5 unit SQ AC-TID [facility] Last Admin: 12/21/21 08:26 Dose: 5 unit Documented by: Insulin Detemir (Insulin Detemir (Levemir) 100 Unit/Ml Syr) 18 unit SQ HS [facility] Last Admin: 12/20/21 20:57 Dose: 18 unit Documented by: Levetiracetam (Levetiracetam 500 Mg Tab) 1,000 mg PO BID@0800,2000 [facility] Last Admin: 12/21/21 08:25 Dose: 1,000 mg Documented by: Lidocaine (Lidocaine 5% Patch) 1 patch TOPICAL DAILY [facility]; Protocol Last Admin: 12/21/21 09:31 Dose: 1 patch Documented by: Naloxone HCl (Naloxone 0.4 Mg/Ml 1 Ml Vial) 0.2 mg IV Q2M PRN PRN Reason: Opioid Reversal Oxycodone/Acetaminophen (Oxycodone-Apap 10-325mg 1 Each Tab) 1 each PO Q4H PRN PRN Reason: Pain Last Admin: 12/21/21 12:52 Dose: 1 each Documented by: Ropinirole HCl (Ropinirole Hcl 0.25 Mg Tab) 0.5 mg PO TID@0500,1300,2100 [facility] Last Admin: 12/21/21 08:31 Dose: Not Given Documented by: Tamsulosin HCl (Tamsulosin 0.4 Mg Cap.Er.24h) 0.4 mg PO PC-BRKFST [facility] Last Admin: 12/21/21 08:25 Dose: 0.4 mg Documented by: Ticagrelor (Ticagrelor 90 Mg Tab) 90 mg PO BID [facility] Last Admin: 12/21/21 08:58 Dose: 90 mg Documented by: Past medical history to include: Stroke, diabetes, hypertension, left below-knee amputation, right heel wound, PAD Social history: [facility] [employer], smoked 2 packs a day for 45 years up October 2021. No alcohol. . 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 Conjunctiva normal. HEENT: External appearance of nose and ears normal, oral cavity grossly normal. NECK: JVD not raised; masses not palpable. HEART: First and second heart sounds are normal; no edema. LUNGS: Respiratory rate increased; decreased breath sounds ABDOMEN: Soft, nontender, liver spleen not palpable, no masses palpable. PSYCH: Alert and oriented x3; mood and affect very anxious DERMATOLOGICAL: Maculopapular rash. Diffuse MUSCULOSKELETAL:No Clubbing/cyanosis;muscles-grossly intact. EXTREMITIES: Right heel necrotic wound. Dressing right lower extremity. INVESTIGATIONS, reviewed in the clinical context: Carotid Doppler:Subtotal occlusion right ICA and severe stenosis left ICA December 20: Hemoglobin 7 December 19: Potassium 5.1 BUN 37 creatinine 1.81 White count 8.3 hemoglobin 7 platelets 256 potassium 5.3 BUN 38 creatinine 1.9 to EKG tracing personally reviewed by me-normal sinus rhythm. Grade [address]-T changes and changes Chest x-ray film personally reviewed by me-portable/infiltrates possibly chronic CT scan brain without contrast: Possible subacute right frontal parietal cortical infarct. Previous labs: 12/11/2021: Potassium 5.5 creatinine 1.86 2-D echocardiogram: EF 60 - 65% Doppler ultrasound [December 10] right lower extremity: Negative for DVT Assessment and plan: -Chronic encephalomalacia involving the right frontal lobe. [Not subacute stroke as mentioned in the report.]. Seen by Dr. Wolfe from neurology. No further workup. -Subtotal occlusion right ICA and severe stenosis left ICA Follow with Dr. Marie outpatient - COPD in a previous smoker: DuoNeb 3 times a day. Pulmicort nebulizer twice a day. -Right heel diabetic wound negative for osteomyelitis per recent MRI.: Improving Previous Culture positive for Acinetobacter, MRSA IV Unasyn changed over to IV cefepime., IV daptomycin. to complete a total of 6 weeks. Patient seen by vascular Dr. Marie.: For outpatient debridement -chronic hypoxic respiratory failure from COPD currently on 3 L of oxygen. -Normocytic anemia/iron deficiency anemia -Chronic kidney disease stage III likely diabetic nephropathy and hypertensive nephrosclerosis Creatinine 1.68 on November 09 -Diabetes mellitus type 2, chronically on insulin: Controlled with hypoglycemia Increase Levemir 18 units. Decrease to 5 units with meals Humalog. Sliding scale. -Essential hypertension Coreg 12.5 mg twice a day hydralazine 100 mg 2 times a day -Diabetic peripheral neuropathy: Neurontin to 300 mg twice a day -Restless leg syndrome: Requip 0.5 mg by mouth 3 times a day -Left below-knee amputation -PAD Given increased pain consult Dr. Montalvo. -Pain management Pain management services consulted. Continue current medications -Full code IV cefepime. Outpatient debridement per Dr. Marie... Other medications to continue. Discussed with shoe caser, vascular and ID. Total time spent today about 45 minutes with over 25 minutes of discussion.
--- NOTE | 2021-12-21 14:52 | P.PN ---
Subjective Progress Note Date: 12/19/21 Principal diagnosis: Right heel diabetic foot infection with underlying Osteomyelitis Patient is a 61 year old male with a past medical history significant for diabetes mellitus, right heel diabetic foot infection extending down to the wound culture positive for Acinetobacter MRSA and the patient [facility] has been brought back to the hospital with some mental status changes and also have extensive rash possibly to Unasyn which has been discontinued. On today's evaluation is 12/19/2021, the patient denies having any fever and chills breathing comfortably. No pain to the right heel area and wants more pain medication overall rash has slightly decreased intensity, denies abdominal pain or diarrhea Objective - Vital Signs Vital signs: Vital Signs Temp 98.4 F 12/19/21 12:00 Pulse 88 12/19/21 13:53 Resp 22 12/19/21 13:53 BP 144/71 12/19/21 12:00 Pulse Ox 94 L 12/19/21 12:00 Intake & Output 12/18/21 12/19/21 12/19/21 18:59 06:59 18:59 Intake Total 10 Output Total 1170 Balance -1160 Weight 108.046 kg 108.046 kg 108.046 kg Intake: IV 10 Invasive Line 1 10 Output: Urine 1170 Straight 500 Other: Voiding Method Urinal Urinal - Exam GENERAL DESCRIPTION: Middle-age male lying in bed in no distress RESPIRATORY SYSTEM: Unlabored breathing , decreased breath sounds at bases HEART: S1 S2 regular rate and rhythm , ABDOMEN: Soft , no tenderness SKIN: Diffuse macular Rash slightly decreased EXTREMITIES: Right heel wound with the slough tissue some surrounding deep tissue injury - Labs CBC & Chem 7: 12/20/21 05:25 12/19/21 11:35 Labs: Abnormal Lab Results - Last 24 Hours (Table) 12/18/21 12/19/21 12/19/21 Range/Units 21:03 07:05 11:35 Chloride 112 H (98-107) mmol/L BUN 37 H (9-20) mg/dL Creatinine 1.81 H (0.66-1.25) mg/dL Glucose 207 H (74-99) mg/dL POC Glucose (mg/dL) 160 H 168 H (75-99) mg/dL Calcium 8.0 L (8.4-10.2) mg/dL 12/19/21 Range/Units 11:37 Chloride (98-107) mmol/L BUN (9-20) mg/dL Creatinine (0.66-1.25) mg/dL Glucose (74-99) mg/dL POC Glucose (mg/dL) 220 H (75-99) mg/dL Calcium (8.4-10.2) mg/dL Assessment and Plan (1) Diabetic foot ulcer Current Visit: Yes Status: Acute Code(s): E11.621 - TYPE 2 DIABETES MELLITUS WITH FOOT ULCER; L97.509 - NON-PRESSURE CHRONIC ULCER OTH PRT UNSP FOOT W UNSP SEVERITY SNOMED Code(s): 999517918 Plan: 1patient with right heel diabetic foot infection in this patient who is s/p debridement and culture positive for Acinetobacter and MRSA and there was concern for the wound probing down to the bone at the time of initial debridement patient now seem to have worsening of his right heel wound with surrounding necrotic changes and will benefit from further surgical debridement, vascular surgery has been consulted 2patient with generalized maculopapular rash could be related to Unasyn has been discontinued. 3the patient will continue patient on daptomycin and cefepime. 4local wound care to the right heel with the Medihoney followed by moist dressing and keep the area off the pressure Time with Patient: Less than 30
--- NOTE | 2021-12-21 14:53 | P.PN ---
Subjective Progress Note Date: 12/20/21 Principal diagnosis: Right heel diabetic foot infection with underlying Osteomyelitis Patient is a 61 year old male with a past medical history significant for diabetes mellitus, right heel diabetic foot infection extending down to the wound culture positive for Acinetobacter MRSA and the patient was getting Unasyn and vancomycin at the long[facility] has been brought back to the hospital with some mental status changes and also have extensive rash possibly to Unasyn which has been discontinued. On today's evaluation is 12/20/2021, the patient denies having any fever and chills , the patient is breathing comfortably. The patient pain to the right heel area is currently controlled the patient rash has slightly decreased intensity, denies abdominal pain or diarrhea Objective - Vital Signs Vital signs: Vital Signs Temp 98.4 F 12/20/21 12:00 Pulse 90 12/20/21 12:00 Resp 18 12/20/21 12:00 BP 116/64 12/20/21 12:00 Pulse Ox 99 12/20/21 12:00 Intake & Output 12/19/21 12/20/21 12/20/21 18:59 06:59 18:59 Intake Total 980 100 Output Total 550 Balance 430 100 Weight 108.046 kg Intake: Intake, IV Titration 100 Amount Cefepime 2 gm In Sodium 100 Chloride 0.9% 100 ml @ 25 mls/hr IVPB Q12HR REPLACED BY [facility] Rx #:[id number] Oral 980 Output: Urine 550 Other: Voiding Method Urinal Urinal Indwelling Catheter - Exam GENERAL DESCRIPTION: Middle-age male lying in bed in no distress RESPIRATORY SYSTEM: Unlabored breathing , decreased breath sounds at bases HEART: S1 S2 regular rate and rhythm , ABDOMEN: Soft , no tenderness SKIN: Diffuse macular Rash slightly decreased EXTREMITIES: Right heel wound with the slough tissue some surrounding deep tissue injury - Labs CBC & Chem 7: 12/20/21 05:25 12/19/21 11:35 Labs: Abnormal Lab Results - Last 24 Hours (Table) 12/19/21 12/19/21 12/19/21 Range/Units 16:26 19:01 19:59 RBC 2.73 L (4.30-5.90) m/uL Hgb 7.6 L (13.0-17.5) gm/dL Hct 25.8 L (39.0-53.0) % MCHC 29.5 L (31.0-37.0) g/dL RDW 15.7 H (11.5-15.5) % Lymphocytes # 0.8 L (1.0-4.8) k/uL POC Glucose (mg/dL) 132 H 197 H (75-99) mg/dL 12/20/21 12/20/21 12/20/21 Range/Units 05:25 07:04 11:46 RBC 2.49 L (4.30-5.90) m/uL Hgb 7.0 L (13.0-17.5) gm/dL Hct 23.7 L (39.0-53.0) % MCHC 29.6 L (31.0-37.0) g/dL RDW 15.9 H (11.5-15.5) % Lymphocytes # (1.0-4.8) k/uL POC Glucose (mg/dL) 150 H 112 H (75-99) mg/dL Assessment and Plan (1) Diabetic foot ulcer Current Visit: Yes Status: Acute Code(s): E11.621 - TYPE 2 DIABETES MELLITUS WITH FOOT ULCER; L97.509 - NON-PRESSURE CHRONIC ULCER OTH PRT UNSP FOOT W UNSP SEVERITY SNOMED Code(s): 878822642 Plan: 1patient with right heel diabetic foot infection in this patient who is s/p debridement and culture positive for Acinetobacter and MRSA and there was concern for the wound probing down to the bone at the time of initial debridement patient now seem to have worsening of his right heel wound with surrounding necrotic changes and will benefit from further surgical debridement, vascular surgery has seen the patient and not recommending any surgical debridem ent at this point 2patient with generalized maculopapular rash could be related to Unasyn has been discontinued. 3the patient will continue patient on daptomycin and cefepime. 4local wound care to the right heel with the Medihoney followed by moist dressing and keep the area off the pressure Time with Patient: Less than 30
--- NOTE | 2021-12-21 14:54 | P.PN ---
Subjective Progress Note Date: 12/21/21 Principal diagnosis: Right heel diabetic foot infection with underlying Osteomyelitis Patient is a 61 year old male with a past medical history significant for diabetes mellitus, right heel diabetic foot infection extending down to the wound culture positive for Acinetobacter MRSA and [facility] has been brought back to the hospital with some mental status changes and also have extensive rash possibly to Unasyn which has been discontinued. On today's evaluation is 12/21/2021, the patient remains to be afebrile , the patient is breathing comfortably on nasal cannula oxygen. The patient pain to the right heel area is currently controlled the patient rash has slightly decreased intensity, the patient denies abdominal pain or diarrhea Objective - Vital Signs Vital signs: Vital Signs Temp 97.9 F 12/21/21 07:36 Pulse 87 12/21/21 07:44 Resp 18 12/21/21 07:36 BP 157/71 12/21/21 07:36 Pulse Ox 100 12/21/21 07:37 Intake & Output 12/20/21 12/21/21 12/21/21 18:59 06:59 18:59 Intake Total 180 Output Total 600 901 Balance -600 -721 Intake: Intake, IV Titration 180 Amount Cefepime 2 gm In Sodium 100 Chloride 0.9% 100 ml @ 25 mls/hr IVPB Q12HR [facility] Rx #:[id number] Sodium Chloride 0.9% 1, 80 000 ml @ 20 mls/hr IV . Q24H [facility] Rx#:[id number] Output: Urine 600 900 Stool 1 Other: Voiding Method Indwelling Catheter Indwelling Catheter # Bowel Movements 1 - Exam GENERAL DESCRIPTION: Middle-age male lying in bed in no distress RESPIRATORY SYSTEM: Unlabored breathing , decreased breath sounds at bases HEART: S1 S2 regular rate and rhythm , ABDOMEN: Soft , no tenderness SKIN: Diffuse macular Rash slightly decreased EXTREMITIES: Right heel wound with the slough tissue some surrounding deep tissue injury - Labs CBC & Chem 7: 12/20/21 05:25 12/19/21 11:35 Labs: Abnormal Lab Results - Last 24 Hours (Table) 12/20/21 12/20/21 12/21/21 Range/Units 17:24 19:55 07:29 POC Glucose (mg/dL) 247 H 153 H 121 H (75-99) mg/dL Assessment and Plan (1) Diabetic foot ulcer Current Visit: Yes Status: Acute Code(s): E11.621 - TYPE 2 DIABETES MELLITUS WITH FOOT ULCER; L97.509 - NON-PRESSURE CHRONIC ULCER OTH PRT UNSP FOOT W UNSP SEVERITY SNOMED Code(s): 195916707 Plan: 1patient with right heel diabetic foot infection in this patient who is s/p debridement and culture positive for Acinetobacter and MRSA and there was c oncern for the wound probing down to the bone at the time of initial debridement patient now seem to have worsening of his right heel wound with surrounding necrotic changes and will benefit from further surgical debridement, vascular surgery has seen the patient and not recommending any surgical debridement at this point 2patient with generalized maculopapular rash likely related to Unasyn which has been discontinued. 3the patient will continue patient on daptomycin and cefepime x 2 more weeks on discharge finish course of therapy 4local wound care to the right heel with the Medihoney followed by moist dressing and keep the area off the pressure Time with Patient: Less than 30
[2021-12-21 17:09] LABS: Glucose,Whole Blood 235 mg/dL (75-99)
[2021-12-21 20:29] LABS: Glucose,Whole Blood 242 mg/dL (75-99)
[2021-12-21] MEDS: ATORVASTATIN 40 MG TAB PO SCH (21:57)
[2021-12-21] MEDS: INSULIN DETEMIR (LEVEMIR) 100 UNIT/ML SYR SQ SCH (21:59)
[2021-12-22] MEDS: HYDROmorphone 0.5 MG/0.5 ML SYRINGE IVP PRN ×4 (01:28→21:38)
[2021-12-22] MEDS: oxyCODONE-APAP 10-325MG 1 EACH TAB PO PRN ×2 (06:08→21:08)
[2021-12-22 07:04] LABS: Glucose,Whole Blood 175 mg/dL (75-99)
[2021-12-22] MEDS: IPRATROPIUM-ALBUTEROL 3 ML NEB INHALATION SCH ×3 (07:36→19:14)
[2021-12-22] MEDS: BUDESONIDE 1 MG/2 ML NEBU INHALATION SCH ×2 (07:37→19:14)
[2021-12-22] MEDS: LIDOCAINE 5% PATCH TOPICAL SCH (07:56)
[2021-12-22] MEDS: BUMETANIDE 1 MG TAB PO SCH ×2 (07:57→21:05)
[2021-12-22] MEDS: GABAPENTIN 300 MG CAP PO SCH ×2 (07:57→21:07)
[2021-12-22] MEDS: carvediloL 12.5 MG TAB PO SCH ×2 (07:57→17:52)
[2021-12-22] MEDS: ASPIRIN 81 MG PO SCH (07:57)
[2021-12-22] MEDS: CEFEPIME 2 GM in SODIUM CHLORIDE 0.9% 100 ML IVPB SCH ×2 (07:57→21:05)
[2021-12-22] MEDS: TAMSULOSIN 0.4 MG CAP.ER.24H PO SCH (07:57)
[2021-12-22] MEDS: levETIRAcetam 500 MG TAB PO SCH ×2 (07:57→21:05)
[2021-12-22] MEDS: CARBAMIDE PEROXIDE 6.5% DROPS 15 ML BTL BOTH EARS SCH ×2 (07:58→21:05)
[2021-12-22] MEDS: INSULIN ASPART (NovoLOG) 100 UNIT/ML VIAL SQ SCH ×3 (07:59→17:51)
[2021-12-22] MEDS: TICAGRELOR 90 MG TAB PO SCH ×2 (07:59→21:08)
[2021-12-22] MEDS: hydrALAZINE HCL 50 MG TAB PO SCH ×3 (07:59→21:08)
[2021-12-22] MEDS: COLLAGENASE 250 UNIT/GM OINTMENT 30 GM TUBE TOPICAL SCH (08:00)
[2021-12-22 11:16] LABS: Glucose,Whole Blood 162 mg/dL (75-99)
[2021-12-22] MEDS: SODIUM CHLORIDE 0.9% 1,000 ML IV SCH (12:43)
--- NOTE | 2021-12-22 15:20 | P.PN ---
Progress Note - Text Progress Note Date: 12/22/21 Chief Complaint: Right leg pain This is a 61-year-old patient, now following with Dr. Smalls at [facility] Chronic stable medical conditions include diabetes, hypertension, left below- knee amputation. admitted to the hospital on 11/09/2021 with a right foot nonhealing ulcer. Had been a smoker up to recently. Wound on right heel, wound cultures were positive for Acinetobacter and MRSA. MRI was negative for osteomyelitis. Patient was discharged on IV Unasyn and daptomycin. discharged on BiPAP. He had desaturated there and he was transferred as patient became short of breath. Patient was subsequently admitted from December 01 through December 11 Admitted with acute COPD exacerbation, pneumonia, right heel wound. IV Unasyn daptomycin continued. Bronchodilators. Steroids. For neuropathic pain , Neurontin was increased. seen by pain services. Patient was discharged to rehab Patient now presents complaining of increasing pain in the right lower extremity. That seems to be his main complaint. Has been refusing his medications last 2 days. No fever no chills reported. Patient seen by Dr. Montalvo in November. Arterial ultrasound was a suboptimal study at that time. Due to noncooperation. Short slightly decreased TBI. Patient has dressing on the right lower extremity for blisters. Also has wounds. No sedation patient was seen by pain services. Patient also has a maculopapular rash. Nonitching. Nontender. December 19: Patient Neurontin was increased. On IV Dilaudid. Still complaining of significant pain in the right leg. Antibiotic is being changed to IV cefepime. Discussed with ID. For pain patient is on Neurontin, Dilaudid, Percocet. Seen by pain services. Continue current medications. Discussed with patient. Patient earlier today told the nurse that he wanted to kill himself. Psychiatry consulted. December 20: Patient formal comfortable today. Seen by Dr. Marie by vascular. Not for I&D of the right heel of the current time. Patient is hungry for lunch. Was nothing by mouth for breakfast. December 21: Patient was reviewed by Dr. Marie from vascular. For outpatient debridement. Also to follow the patient for carotid artery stenosis. Suboptimal occlusion right ICA. Severe stenosis left ICA. Discussed with vascular. Discussed with ID. Per pillowcase maker pending authorization for ECF December 22: Continue current medication treatment plan. Pending placement. Active Medications Acetaminophen (Acetaminophen Tab 325 Mg Tab) 650 mg PO Q6H PRN PRN Reason: Pain or Fever > 100.5 Albuterol/Ipratropium (Ipratropium-Albuterol 3 Ml Neb) 3 ml INHALATION RT-TID [facility] Last Admin: 12/22/21 11:47 Dose: Not Given Documented by: Albuterol/Ipratropium (Ipratropium-Albuterol 3 Ml Neb) 3 ml INHALATION RT-Q2H PRN PRN Reason: Shortness Of Breath Or Wheezing Last Admin: 12/20/21 15:47 Dose: 3 ml Documented by: Aspirin (Aspirin 81 Mg) 81 mg PO DAILY [facility] Last Admin: 12/22/21 07:57 Dose: 81 mg Documented by: Atorvastatin Calcium (Atorvastatin 40 Mg Tab) 40 mg PO HS [facility] Last Admin: 12/21/21 21:57 Dose: 40 mg Documented by: Budesonide (Budesonide 1 Mg/2 Ml Nebu) 1 mg INHALATION RT-BID [facility] Last Admin: 12/22/21 07:37 Dose: 1 mg Documented by: Bumetanide (Bumetanide 1 Mg Tab) 1 mg PO BID [facility] Last Admin: 12/22/21 07:57 Dose: 1 mg Documented by: Carbamide Perox/Anhydrous Glycerin (Carbamide Peroxide 6.5% Drops 15 Ml Btl) 5 drops BOTH EARS BID [facility] Last Admin: 12/22/21 07:58 Dose: 5 drops Documented by: Carvedilol (Carvedilol 12.5 Mg Tab) 12.5 mg PO BID-W/MEALS [facility] Last Admin: 12/22/21 07:57 Dose: 12.5 mg Documented by: Collagenase (Collagenase 250 Unit/Gm Ointment 30 Gm Tube) 1 applic TOPICAL DAILY [facility]; Protocol Last Admin: 12/22/21 08:00 Dose: 1 applic Documented by: Gabapentin (Gabapentin 300 Mg Cap) 300 mg PO BID [facility] Last Admin: 12/22/21 07:57 Dose: 300 mg Documented by: Hydralazine HCl (Hydralazine Hcl 50 Mg Tab) 100 mg PO TID [facility] Last Admin: 12/22/21 07:59 Dose: 100 mg Documented by: Hydromorphone HCl (Hydromorphone 0.5 Mg/0.5 Ml Syringe) 0.5 mg IVP Q3HR PRN PRN Reason: Moderate Pain Last Admin: 12/22/21 14:06 Dose: 0.5 mg Documented by: Daptomycin 500 mg/ Sodium (Chloride) 50 mls @ 100 mls/hr IVPB Q24H [facility] Last Admin: 12/21/21 08:32 Dose: 100 mls/hr Documented by: Sodium Chloride (Saline 0.9%) 1,000 mls @ 20 mls/hr IV .Q24H [facility] Last Admin: 12/22/21 12:43 Dose: Not Given Documented by: Cefepime HCl 2 gm/ Sodium (Chloride) 100 mls @ 25 mls/hr IVPB Q12HR [facility]; Protocol Last Admin: 12/22/21 07:57 Dose: 25 mls/hr Documented by: Insulin Aspart (Insulin Aspart (Novolog) 100 Unit/Ml Vial) 5 unit SQ AC-TID [facility] Last Admin: 12/22/21 12:42 Dose: 5 unit Documented by: Insulin Detemir (Insulin Detemir (Levemir) 100 Unit/Ml Syr) 18 unit SQ HS [facility] Last Admin: 12/21/21 21:59 Dose: 18 unit Documented by: Levetiracetam (Levetiracetam 500 Mg Tab) 1,000 mg PO BID@0800,2000 [facility] Last Admin: 12/22/21 07:57 Dose: 1,000 mg Documented by: Lidocaine (Lidocaine 5% Patch) 1 patch TOPICAL DAILY [facility]; Protocol Last Admin: 12/22/21 07:56 Dose: 1 patch Documented by: Naloxone HCl (Naloxone 0.4 Mg/Ml 1 Ml Vial) 0.2 mg IV Q2M PRN PRN Reason: Opioid Reversal Oxycodone/Acetaminophen (Oxycodone-Apap 10-325mg 1 Each Tab) 1 each PO Q4H PRN PRN Reason: Pain Last Admin: 12/22/21 06:08 Dose: 1 each Documented by: Ropinirole HCl (Ropinirole Hcl 0.25 Mg Tab) 0.5 mg PO TID@0500,1300,2100 [facility] Last Admin: 12/22/21 12:42 Dose: 0.5 mg Documented by: Tamsulosin HCl (Tamsulosin 0.4 Mg Cap.Er.24h) 0.4 mg PO PC-BRKFST [facility] Last Admin: 12/22/21 07:57 Dose: 0.4 mg Documented by: Ticagrelor (Ticagrelor 90 Mg Tab) 90 mg PO BID [facility] Last Admin: 12/22/21 07:59 Dose: 90 mg Documented by: Past medical history to include: Stroke, diabetes, hypertension, left below-knee amputation, right heel wound, PAD Social history: [facility], smoked 2 packs a day for 45 years up October 2021. No alcohol. . 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 Conjunctiva normal. HEENT: External appearance of nose and ears normal, oral cavity grossly normal. NECK: JVD not raised; masses not palpable. HEART: First and second heart sounds are normal; no edema. LUNGS: Respiratory rate increased; decreased breath sounds ABDOMEN: Soft, nontender, liver spleen not palpable, no masses palpable. PSYCH: Alert and oriented x3; mood and affect very anxious DERMATOLOGICAL: Maculopapular rash. Diffuse MUSCULOSKELETAL:No Clubbing/cyanosis;muscles-grossly intact. EXTREMITIES: Right heel necrotic wound. Dressing right lower extremity. INVESTIGATIONS, reviewed in the clinical context: Carotid Doppler:Subtotal occlusion right ICA and severe stenosis left ICA December 20: Hemoglobin 7 December 19: Potassium 5.1 BUN 37 creatinine 1.81 White count 8.3 hemoglobin 7 platelets 256 potassium 5.3 BUN 38 creatinine 1.9 to EKG tracing personally reviewed by me-normal sinus rhythm. Grade [address]-T changes and changes Chest x-ray film personally reviewed by me-portable/infiltrates possibly chronic CT scan brain without contrast: Possible subacute right frontal parietal cortical infarct. Previous labs: 12/11/2021: Potassium 5.5 creatinine 1.86 2-D echocardiogram: EF 60 - 65% Doppler ultrasound [December 10] right lower extremity: Negative for DVT Assessment and plan: -Chronic encephalomalacia involving the right frontal lobe. [Not subacute stroke as mentioned in the report.]. Seen by Dr. Wolfe from neurology. No further workup. -Subtotal occlusion right ICA and severe stenosis left ICA Follow with Dr. Marie outpatient - COPD in a previous smoker: DuoNeb 3 times a day. Pulmicort nebulizer twice a day. -Right heel diabetic wound negative for osteomyelitis per recent MRI.: Improving Previous Culture positive for Acinetobacter, MRSA IV Unasyn changed over to IV cefepime., IV daptomycin. to complete a total of 6 weeks. Patient seen by vascular Dr. Marie.: For outpatient debridement -chronic hypoxic respiratory failure from COPD currently on 3 L of oxygen. -Normocytic anemia/iron deficiency anemia -Chronic kidney disease stage III likely diabetic nephropathy and hypertensive nephrosclerosis Creatinine 1.68 on November 09 -Diabetes mellitus type 2, chronically on insulin: Controlled with hypoglycemia Increase Levemir 18 units. Decrease to 5 units with meals Humalog. Sliding scale. -Essential hypertension Coreg 12.5 mg twice a day hydralazine 100 mg 2 times a day -Diabetic peripheral neuropathy: Neurontin to 300 mg twice a day -Restless leg syndrome: Requip 0.5 mg by mouth 3 times a day -Left below-knee amputation -PAD Given increased pain consult Dr. Montalvo. -Pain management Pain management services consulted. Continue current medications -Full code IV cefepime. Continue current treatment plan.
[2021-12-22 17:00] LABS: Glucose,Whole Blood 170 mg/dL (75-99)
[2021-12-22] MEDS: ATORVASTATIN 40 MG TAB PO SCH (21:05)
[2021-12-22] MEDS: INSULIN DETEMIR (LEVEMIR) 100 UNIT/ML SYR SQ SCH ×2 (21:07→21:38)
[2021-12-22 21:23] LABS: Glucose,Whole Blood 163 mg/dL (75-99)
[2021-12-23] MEDS: HYDROmorphone 0.5 MG/0.5 ML SYRINGE IVP PRN ×7 (00:23→22:41)
[2021-12-23 07:11] LABS: Glucose,Whole Blood 111 mg/dL (75-99)
[2021-12-23] MEDS: IPRATROPIUM-ALBUTEROL 3 ML NEB INHALATION SCH ×3 (07:11→19:32)
[2021-12-23] MEDS: BUDESONIDE 1 MG/2 ML NEBU INHALATION SCH ×2 (07:11→19:33)
[2021-12-23] MEDS: INSULIN ASPART (NovoLOG) 100 UNIT/ML VIAL SQ SCH ×3 (08:05→17:25)
[2021-12-23] MEDS: CEFEPIME 2 GM in SODIUM CHLORIDE 0.9% 100 ML IVPB SCH ×3 (08:11→20:59)
[2021-12-23] MEDS: carvediloL 12.5 MG TAB PO SCH ×2 (08:12→17:24)
[2021-12-23] MEDS: ASPIRIN 81 MG PO SCH (08:13)
[2021-12-23] MEDS: GABAPENTIN 300 MG CAP PO SCH ×2 (08:13→20:59)
[2021-12-23] MEDS: levETIRAcetam 500 MG TAB PO SCH ×2 (08:13→20:58)
[2021-12-23] MEDS: hydrALAZINE HCL 50 MG TAB PO SCH ×3 (08:13→20:59)
[2021-12-23] MEDS: TAMSULOSIN 0.4 MG CAP.ER.24H PO SCH (08:13)
[2021-12-23] MEDS: TICAGRELOR 90 MG TAB PO SCH ×2 (08:14→21:15)
[2021-12-23] MEDS: LIDOCAINE 5% PATCH TOPICAL SCH (08:15)
[2021-12-23] MEDS: BUMETANIDE 1 MG TAB PO SCH ×2 (08:15→21:15)
[2021-12-23] MEDS: COLLAGENASE 250 UNIT/GM OINTMENT 30 GM TUBE TOPICAL SCH (08:18)
[2021-12-23] MEDS: CARBAMIDE PEROXIDE 6.5% DROPS 15 ML BTL BOTH EARS SCH ×2 (08:18→21:00)
[2021-12-23] MEDS: DAPTOmycin 500 MG in SODIUM CHLORIDE 0.9% 50 ML IVPB SCH (08:26)
[2021-12-23] MEDS: oxyCODONE-APAP 10-325MG 1 EACH TAB PO PRN ×2 (09:34→20:59)
[2021-12-23 12:32] LABS: Glucose,Whole Blood 196 mg/dL (75-99)
--- NOTE | 2021-12-23 14:45 | P.PN ---
Progress Note - Text Progress Note Date: 12/23/21 Chief Complaint: Right leg pain This is a 61-year-old patient, now following with Dr. Smalls at [facility] Chronic stable medical conditions include diabetes, hypertension, left below- knee amputation. admitted to the hospital on 11/09/2021 with a right foot nonhealing ulcer. Had been a smoker up to recently. Wound on right heel, wound cultures were positive for Acinetobacter and MRSA. MRI was negative for osteomyelitis. Patient was discharged on IV Unasyn and daptomycin. discharged on BiPAP. He had desaturated there and he was transferred as patient became short of breath. Patient was subsequently admitted from December 01 through December 11 Admitted with acute COPD exacerbation, pneumonia, right heel wound. IV Unasyn daptomycin continued. Bronchodilators. Steroids. For neuropathic pain , Neurontin was increased. seen by pain services. Patient was discharged to rehab Patient now presents complaining of increasing pain in the right lower extremity. That seems to be his main complaint. Has been refusing his medications last 2 days. No fever no chills reported. Patient seen by Dr. Montalvo in November. Arterial ultrasound was a suboptimal study at that time. Due to noncooperation. Short slightly decreased TBI. Patient has dressing on the right lower extremity for blisters. Also has wounds. No sedation patient was seen by pain services. Patient also has a maculopapular rash. Nonitching. Nontender. December 19: Patient Neurontin was increased. On IV Dilaudid. Still complaining of significant pain in the right leg. Antibiotic is being changed to IV cefepime. Discussed with ID. For pain patient is on Neurontin, Dilaudid, Percocet. Seen by pain services. Continue current medications. Discussed with patient. Patient earlier today told the nurse that he wanted to kill himself. Psychiatry consulted. December 20: Patient formal comfortable today. Seen by Dr. Marie by vascular. Not for I&D of the right heel of the current time. Patient is hungry for lunch. Was nothing by mouth for breakfast. December 21: Patient was reviewed by Dr. Marie from vascular. For outpatient debridement. Also to follow the patient for carotid artery stenosis. Suboptimal occlusion right ICA. Severe stenosis left ICA. Discussed with vascular. Discussed with ID. Per field marketing manager pending authorization for ECF December 22: Continue current medication treatment plan. Pending placement. December 23: Oral intake fair. Diet. Up in the recliner. Still getting IV Dilaudid. DC morning. Patient due to "to rehab. Active Medications Acetaminophen (Acetaminophen Tab 325 Mg Tab) 650 mg PO Q6H PRN PRN Reason: Pain or Fever > 100.5 Albuterol/Ipratropium (Ipratropium-Albuterol 3 Ml Neb) 3 ml INHALATION RT-TID [facility] Last Admin: 12/23/21 10:45 Dose: Not Given Documented by: Albuterol/Ipratropium (Ipratropium-Albuterol 3 Ml Neb) 3 ml INHALATION RT-Q2H PRN PRN Reason: Shortness Of Breath Or Wheezing Last Admin: 12/20/21 15:47 Dose: 3 ml Documented by: Aspirin (Aspirin 81 Mg) 81 mg PO DAILY [facility] Last Admin: 12/23/21 08:13 Dose: 81 mg Documented by: Atorvastatin Calcium (Atorvastatin 40 Mg Tab) 40 mg PO HS [facility] Last Admin: 12/22/21 21:05 Dose: 40 mg Documented by: Budesonide (Budesonide 1 Mg/2 Ml Nebu) 1 mg INHALATION RT-BID [facility] Last Admin: 12/23/21 07:11 Dose: 1 mg Documented by: Bumetanide (Bumetanide 1 Mg Tab) 1 mg PO BID [facility] Last Admin: 12/23/21 08:15 Dose: 1 mg Documented by: Carbamide Perox/Anhydrous Glycerin (Carbamide Peroxide 6.5% Drops 15 Ml Btl) 5 drops BOTH EARS BID [facility] Last Admin: 12/23/21 08:18 Dose: 5 drops Documented by: Carvedilol (Carvedilol 12.5 Mg Tab) 12.5 mg PO BID-W/MEALS [facility] Last Admin: 12/23/21 08:12 Dose: 12.5 mg Documented by: Collagenase (Collagenase 250 Unit/Gm Ointment 30 Gm Tube) 1 applic TOPICAL DAILY [facility]; Protocol Last Admin: 12/23/21 08:18 Dose: 1 applic Documented by: Gabapentin (Gabapentin 300 Mg Cap) 300 mg PO BID [facility] Last Admin: 12/23/21 08:13 Dose: 300 mg Documented by: Hydralazine HCl (Hydralazine Hcl 50 Mg Tab) 100 mg PO TID [facility] Last Admin: 12/23/21 08:13 Dose: 100 mg Documented by: Hydromorphone HCl (Hydromorphone 0.5 Mg/0.5 Ml Syringe) 0.5 mg IVP Q3HR PRN PRN Reason: Moderate Pain Last Admin: 12/23/21 10:24 Dose: 0.5 mg Documented by: Daptomycin 500 mg/ Sodium (Chloride) 50 mls @ 100 mls/hr IVPB Q24H [facility] Last Admin: 12/23/21 08:26 Dose: 100 mls/hr Documented by: Sodium Chloride (Saline 0.9%) 1,000 mls @ 20 mls/hr IV .Q24H [facility] Last Admin: 12/22/21 12:43 Dose: Not Given Documented by: Cefepime HCl 2 gm/ Sodium (Chloride) 100 mls @ 25 mls/hr IVPB Q12HR [facility]; Protocol Last Admin: 12/23/21 09:35 Dose: 25 mls/hr Documented by: Insulin Aspart (Insulin Aspart (Novolog) 100 Unit/Ml Vial) 5 unit SQ AC-TID [facility] Last Admin: 12/23/21 12:34 Dose: 5 unit Documented by: Insulin Detemir (Insulin Detemir (Levemir) 100 Unit/Ml Syr) 18 unit SQ HS [facility] Last Admin: 12/22/21 21:38 Dose: 18 unit Documented by: Levetiracetam (Levetiracetam 500 Mg Tab) 1,000 mg PO BID@0800,2000 [facility] Last Admin: 12/23/21 08:13 Dose: 1,000 mg Documented by: Lidocaine (Lidocaine 5% Patch) 1 patch TOPICAL DAILY [facility]; Protocol Last Admin: 12/23/21 08:15 Dose: 1 patch Documented by: Naloxone HCl (Naloxone 0.4 Mg/Ml 1 Ml Vial) 0.2 mg IV Q2M PRN PRN Reason: Opioid Reversal Oxycodone/Acetaminophen (Oxycodone-Apap 10-325mg 1 Each Tab) 1 each PO Q4H PRN PRN Reason: Pain Last Admin: 12/23/21 09:34 Dose: 1 each Documented by: Ropinirole HCl (Ropinirole Hcl 0.25 Mg Tab) 0.5 mg PO TID@0500,1300,2100 [facility] Last Admin: 12/23/21 12:33 Dose: 0.5 mg Documented by: Tamsulosin HCl (Tamsulosin 0.4 Mg Cap.Er.24h) 0.4 mg PO PC-BRKFST [facility] Last Admin: 12/23/21 08:13 Dose: 0.4 mg Documented by: Ticagrelor (Ticagrelor 90 Mg Tab) 90 mg PO BID [facility] Last Admin: 12/23/21 08:14 Dose: 90 mg Documented by: Past medical history to include: Stroke, diabetes, hypertension, left below-knee amputation, right heel wound, PAD Social history: [facility] [place], smoked 2 packs a day for 45 years up October 2021. No alcohol. . 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 Conjunctiva normal. HEENT: External appearance of nose and ears normal, oral cavity grossly normal. NECK: JVD not raised; masses not palpable. HEART: First and second heart sounds are normal; no edema. LUNGS: Respiratory rate increased; decreased breath sounds ABDOMEN: Soft, nontender, liver spleen not palpable, no masses palpable. PSYCH: Alert and oriented x3; mood and affect anxious DERMATOLOGICAL: Maculopapular rash. Diffuse MUSCULOSKELETAL:No Clubbing/cyanosis;muscles-grossly intact. EXTREMITIES: Right heel necrotic wound. Dressing right lower extremity. INVESTIGATIONS, reviewed in the clinical context: Carotid Doppler:Subtotal occlusion right ICA and severe stenosis left ICA December 20: Hemoglobin 7 December 19: Potassium 5.1 BUN 37 creatinine 1.81 White count 8.3 hemoglobin 7 platelets 256 potassium 5.3 BUN 38 creatinine 1.9 to EKG tracing personally reviewed by me-normal sinus rhythm. Grade [address] or [address]-T changes and changes Chest x-ray film personally reviewed by me-portable/infiltrates possibly chronic CT scan brain without contrast: Possible subacute right frontal parietal cortical infarct. Previous labs: 12/11/2021: Potassium 5.5 creatinine 1.86 2-D echocardiogram: EF 60 - 65% Doppler ultrasound [December 10] right lower extremity: Negative for DVT Assessment and plan: -Chronic encephalomalacia involving the right frontal lobe. [Not subacute stroke as mentioned in the report.]. Seen by Dr. Wolfe from neurology. No further workup. -Subtotal occlusion right ICA and severe stenosis left ICA Follow with Dr. Marie outpatient - COPD in a previous smoker: DuoNeb 3 times a day. Pulmicort nebulizer twice a day. -Right heel diabetic wound negative for osteomyelitis per recent MRI.: Improving Previous Culture positive for Acinetobacter, MRSA IV Unasyn changed over to IV cefepime., IV daptomycin. to complete a total of 6 weeks. Patient seen by vascular Dr. Marie.: For outpatient debridement -chronic hypoxic respiratory failure from COPD currently on 3 L of oxygen. -Normocytic anemia/iron deficiency anemia -Chronic kidney disease stage III likely diabetic nephropathy and hypertensive nephrosclerosis Creatinine 1.68 on November 09 -Diabetes mellitus type 2, chronically on insulin: Controlled with hypoglycemia Increase Levemir 18 units. Decrease to 5 units with meals Humalog. Sliding scale. -Essential hypertension Coreg 12.5 mg twice a day hydralazine 100 mg 2 times a day -Diabetic peripheral neuropathy: Neurontin to 300 mg twice a day -Restless leg syndrome: Requip 0.5 mg by mouth 3 times a day -Left below-knee amputation -PAD Given increased pain consult Dr. Montalvo. -Pain management Pain management services consulted. Continue current medications -Full code IV cefepime. Continue current treatment plan. Discussed with patient. Pending rehab placement. BISHOP Dilaudid the morning.
[2021-12-23 17:14] LABS: Glucose,Whole Blood 223 mg/dL (75-99)
--- NOTE | 2021-12-23 17:25 | P.PN ---
Subjective Progress Note Date: 12/22/21 Principal diagnosis: Right heel diabetic foot infection with underlying Osteomyelitis Patient is a 61 year old male with a past medical history significant for diabetes mellitus, right heel diabetic foot infection extending down to the wound culture positive for Acinetobacter MRSA and the patient was getting Unasyn and vancomycin at the group home has been brought back to the hospital with some mental status changes and also have extensive rash possibly to Unasyn which has been discontinued. On today's evaluation is 12/22/2021, the patient continues to be afebrile , the patient is breathing comfortably on nasal cannula oxygen. The patient pain to the right heel area is currently controlled the patient rash has decreased in intensity, the patient denies abdominal pain and no diarrhea has been reported Objective - Vital Signs Vital signs: Vital Signs Temp 98 F 12/22/21 12:23 Pulse 101 H 12/22/21 20:52 Resp 18 12/22/21 12:23 BP 187/71 12/22/21 20:52 Pulse Ox 96 12/22/21 12:23 Intake & Output 12/22/21 12/22/21 12/23/21 06:59 18:59 06:59 Intake Total 340 260 Output Total 1000 1600 Balance -660 -1340 Intake: Intake, IV Titration 340 260 Amount Cefepime 2 gm In Sodium 100 100 Chloride 0.9% 100 ml @ 25 mls/hr IVPB Q12HR [facility] Rx #:[id number] Sodium Chloride 0.9% 1, 240 160 000 ml @ 20 mls/hr IV . Q24H [facility] Rx#:[id number] Oral 0 Output: Urine 1000 1600 Other: Voiding Method Indwelling Catheter Indwelling Catheter - Exam GENERAL DESCRIPTION: Middle-age male lying in bed in no distress RESPIRATORY SYSTEM: Unlabored breathing , decreased breath sounds at bases HEART: S1 S2 regular rate and rhythm , ABDOMEN: Soft , no tenderness SKIN: Diffuse macular Rash slightly decreased EXTREMITIES: Right heel wound with the slough tissue some surrounding deep tissue injury - Labs CBC & Chem 7: 12/20/21 05:25 12/19/21 11:35 Labs: Abnormal Lab Results - Last 24 Hours (Table) 12/22/21 12/22/21 12/22/21 Range/Units 06:54 11:15 16:57 POC Glucose (mg/dL) 175 H 162 H 170 H (75-99) mg/dL Assessment and Plan (1) Diabetic foot ulcer Current Visit: Yes Status: Acute Code(s): E11.621 - TYPE 2 DIABETES MELLITUS WITH FOOT ULCER; L97.509 - NON-PRESSURE CHRONIC ULCER OTH PRT UNSP FOOT W UNSP SEVERITY SNOMED Code(s): 166501337 Plan: 1patient with right heel diabetic foot infection in this patient who is s/p debridement and culture positive for Acinetobacter and MRSA and there was concern for the wound probing down to the bone at the time of initial debridement patient now seem to have worsening of his right heel wound with surrounding necrotic changes and will benefit from further surgical debridement, vascular surgery has seen the patient and not recommending any surgical debridement at this point 2patient with generalized maculopapular rash likely related to Unasyn which has been discontinued. Rash has decreased in intensity 3the patient will continue patient on daptomycin and cefepime x 2 more weeks on discharge finish course of therapy 4local wound care to the right heel with the Santyl followed by moist dressing and keep the area off the pressure Time with Patient: Less than 30
--- NOTE | 2021-12-23 17:26 | P.PN ---
Subjective Progress Note Date: 12/23/21 Principal diagnosis: Right heel diabetic foot infection with underlying Osteomyelitis Patient is a 61 year old male with a past medical history significant for diabetes mellitus, right heel diabetic foot infection extending down to the wound culture positive for Acinetobacter MRSA and the patient was getting [facility] has been brought back to the hospital with some mental status changes and also have extensive rash possibly to Unasyn which has been discontinued. On today's evaluation is 12/23/2021, the patient remains to be afebrile , the patient is breathing comfortably on nasal cannula oxygen. The patient denies any worsening pain to the right heel , the patient rash has decreased in intensity and no new rash has been reported, the patient denies abdominal pain and no diarrhea has been reported by the nursing staff Objective - Vital Signs Vital signs: Vital Signs Temp 98.5 F 12/23/21 13:57 Pulse 91 12/23/21 13:57 Resp 16 12/23/21 13:57 BP 137/78 12/23/21 13:57 Pulse Ox 87 L 12/23/21 13:57 Intake & Output 12/22/21 12/23/21 12/23/21 18:59 06:59 18:59 Intake Total 260 340 Output Total 1600 1999 1351 Balance -1340 -1660 -1351 Intake: Intake, IV Titration 260 340 Amount Cefepime 2 gm In Sodium 100 100 Chloride 0.9% 100 ml @ 25 mls/hr IVPB Q12HR [facility] Rx #:[id number] Sodium Chloride 0.9% 1, 160 240 000 ml @ 20 mls/hr IV . Q24H [facility] Rx#:[id number] Output: Urine 1600 1999 1350 Stool 1 Other: Voiding Method Indwelling Catheter Indwelling Catheter Indwelling Catheter - Exam GENERAL DESCRIPTION: Middle-age male lying in bed in no distress RESPIRATORY SYSTEM: Unlabored breathing , decreased breath sounds at bases HEART: S1 S2 regular rate and rhythm , ABDOMEN: Soft , no tenderness SKIN: Diffuse macular Rash slightly decreased EXTREMITIES: Right heel wound with the slough tissue some surrounding deep tissue injury - Labs CBC & Chem 7: 12/20/21 05:25 12/19/21 11:35 Labs: Abnormal Lab Results - Last 24 Hours (Table) 12/22/21 12/22/21 12/23/21 Range/Units 16:57 21:13 07:08 POC Glucose (mg/dL) 170 H 163 H 111 H (75-99) mg/dL 12/23/21 Range/Units 12:30 POC Glucose (mg/dL) 196 H (75-99) mg/dL Assessment and Plan (1) Diabetic foot ulcer Current Visit: Yes Status: Acute Code(s): E11.621 - TYPE 2 DIABETES MELLITUS WITH FOOT ULCER; L97.509 - NON-PRESSURE CHRONIC ULCER OTH PRT UNSP FOOT W UNSP SEVERITY SNOMED Code(s): 809743969 Plan: 1patient with right heel diabetic foot infection in this patient who is s/p de bridement and culture positive for Acinetobacter and MRSA and there was concern for the wound probing down to the bone at the time of initial debridement patient now seem to have worsening of his right heel wound with surrounding necrotic changes and will benefit from further surgical debridement, vascular surgery has seen the patient and not recommending any surgical debridement at this point 2patient with generalized maculopapular rash likely related to Unasyn which has been discontinued. Rash has decreased in intensity 3the patient will continue patient on daptomycin and cefepime x 10 more days on discharge finish course of therapy 4local wound care to the right heel with the Santyl followed by moist dressing and keep the area off the pressure and continue supportive care Time with Patient: Less than 30
[2021-12-23] MEDS: SODIUM CHLORIDE 0.9% 1,000 ML IV SCH (18:05)
[2021-12-23] MEDS: ATORVASTATIN 40 MG TAB PO SCH (20:58)
[2021-12-23 21:23] LABS: Glucose,Whole Blood 191 mg/dL (75-99)
[2021-12-24] MEDS: HYDROmorphone 0.5 MG/0.5 ML SYRINGE IVP PRN (01:24)
[2021-12-24] MEDS: oxyCODONE-APAP 10-325MG 1 EACH TAB PO PRN ×2 (01:25→08:15)
[2021-12-24 06:29] LABS: Anisocytosis Slight; Basophils # (A) 0.1 k/uL (0-0.2); Basophils % (A) 1 %; Eosinophils # (A) 0.5 k/uL (0-0.7); Eosinophils % (A) 7 %; HCT 24.9 % (39.0-53.0); HGB 7.3 gm/dL (13.0-17.5); Hypochromasia Marked; Lymphocytes % (A) 14 %; MCH 27.5 pg (25.0-35.0); MCHC 29.2 g/dL (31.0-37.0); MCV 94.4 fL (80.0-100.0); Mean Platelet Volume 7.2; Monocytes # (A) 0.6 k/uL (0-1.0); Monocytes % (A) 7 %; Neutrophils # (A) 5.3 k/uL (1.3-7.7); Neutrophils % (A) 70 %; Platelet Count 337 k/uL (150-450); RBC 2.64 m/uL (4.30-5.90); RDW 16.3 % (11.5-15.5); WBC 7.6 k/uL (3.8-10.6)
[2021-12-24 06:31] LABS: ALT 8 U/L (4-49); AST 25 U/L (17-59); African American GFR (CKD) 43 (>60 ml/min/1.73 sqM); Albumin 2.7 g/dL (3.5-5.0); Albumin/Globulin Ratio 0.9; Alkaline Phosphatase 82 U/L (38-126); Anion Gap 8 mmol/L; Blood Urea Nitrogen 32 mg/dL (9-20); Calcium 8.2 mg/dL (8.4-10.2); Carbon Dioxide 23 mmol/L (22-30); Chloride 112 mmol/L (98-107); Glucose 154 mg/dL (74-99); Non-African American GFR(CKD) 37 (>60 ml/min/1.73 sqM); Potassium 4.4 mmol/L (3.5-5.1); Sodium 143 mmol/L (137-145); Total Bilirubin 0.2 mg/dL (0.2-1.3); Total Protein 5.7 g/dL (6.3-8.2)
[2021-12-24 07:18] LABS: Glucose,Whole Blood 168 mg/dL (75-99)
[2021-12-24] MEDS: IPRATROPIUM-ALBUTEROL 3 ML NEB INHALATION SCH ×3 (07:27→20:12)
[2021-12-24] MEDS: BUDESONIDE 1 MG/2 ML NEBU INHALATION SCH ×2 (07:27→20:12)
[2021-12-24] MEDS: levETIRAcetam 500 MG TAB PO SCH ×2 (08:09→21:12)
[2021-12-24] MEDS: TAMSULOSIN 0.4 MG CAP.ER.24H PO SCH (08:10)
[2021-12-24] MEDS: DAPTOmycin 500 MG in SODIUM CHLORIDE 0.9% 50 ML IVPB SCH (08:10)
[2021-12-24] MEDS: GABAPENTIN 300 MG CAP PO SCH ×2 (08:10→21:13)
[2021-12-24] MEDS: BUMETANIDE 1 MG TAB PO SCH ×2 (08:10→21:12)
[2021-12-24] MEDS: ASPIRIN 81 MG PO SCH (08:10)
[2021-12-24] MEDS: hydrALAZINE HCL 50 MG TAB PO SCH ×3 (08:10→21:12)
[2021-12-24] MEDS: TICAGRELOR 90 MG TAB PO SCH ×2 (08:10→21:12)
[2021-12-24] MEDS: LIDOCAINE 5% PATCH TOPICAL SCH (08:11)
[2021-12-24] MEDS: INSULIN ASPART (NovoLOG) 100 UNIT/ML VIAL SQ SCH ×3 (08:11→17:42)
[2021-12-24] MEDS: carvediloL 12.5 MG TAB PO SCH ×2 (08:11→17:42)
[2021-12-24] MEDS: CEFEPIME 2 GM in SODIUM CHLORIDE 0.9% 100 ML IVPB SCH ×2 (09:10→21:11)
[2021-12-24] MEDS: CARBAMIDE PEROXIDE 6.5% DROPS 15 ML BTL BOTH EARS SCH ×2 (09:12→22:20)
[2021-12-24] MEDS: HYDROcodone/APAP 5-325MG 1 EACH TAB PO PRN ×2 (10:19→17:47)
[2021-12-24 11:49] LABS: Glucose,Whole Blood 233 mg/dL (75-99)
[2021-12-24] MEDS ORDERED: HYDROmorphone 1 MG/ML 1 ML SYRINGE IVP STA (13:57)
[2021-12-24] MEDS: oxyCODONE ER 15 MG TAB.ER.12H PO SCH ×2 (14:46→21:13)
[2021-12-24] MEDS: COLLAGENASE 250 UNIT/GM OINTMENT 30 GM TUBE TOPICAL SCH (16:28)
[2021-12-24 17:33] LABS: Glucose,Whole Blood 259 mg/dL (75-99)
[2021-12-24] MEDS: SODIUM CHLORIDE 0.9% 1,000 ML IV SCH (17:42)
[2021-12-24 20:27] LABS: Glucose,Whole Blood 264 mg/dL (75-99)
[2021-12-24] MEDS: INSULIN DETEMIR (LEVEMIR) 100 UNIT/ML SYR SQ SCH (21:11)
[2021-12-24] MEDS: ATORVASTATIN 40 MG TAB PO SCH (21:12)
[2021-12-25] MEDS: HYDROcodone/APAP 5-325MG 1 EACH TAB PO PRN ×2 (00:12→12:39)
--- NOTE | 2021-12-25 00:14 | P.PN ---
Subjective Progress Note Date: 12/24/21 Chief Complaint: Right leg pain This is a 61-year-old patient, now following with Dr. Smalls at [facility] Chronic stable medical conditions include diabetes, hypertension, left below- knee amputation. admitted to the hospital on 11/09/2021 with a right foot nonhe aling ulcer. Had been a smoker up to recently. Wound on right heel, wound cultures were positive for Acinetobacter and MRSA. MRI was negative for osteomyelitis. Patient was discharged on IV Unasyn and daptomycin. discharged on BiPAP. He had desaturated there and he was transferred as patient became short of breath. Patient was subsequently admitted from December 01 through December 11 Admitted with acute COPD exacerbation, pneumonia, right heel wound. IV Unasyn daptomycin continued. Bronchodilators. Steroids. For neuropathic pain , Neurontin was increased. seen by pain services. Patient was discharged to rehab Patient now presents complaining of increasing pain in the right lower extr emity. That seems to be his main complaint. Has been refusing his medications last 2 days. No fever no chills reported. Patient seen by Dr. Montalvo in November. Arterial ultrasound was a suboptimal study at that time. Due to noncooperation. Short slightly decreased TBI. Patient has dressing on the right lower extremity for blisters. Also has wounds. No sedation patient was seen by pain services. Patient also has a maculopapular rash. Nonitching. Nontender. December 19: Patient Neurontin was increased. On IV Dilaudid. Still complaining of significant pain in the right leg. Antibiotic is being changed to IV cefepime. Discussed with ID. For pain patient is on Neurontin, Dilaudid, Percocet. Seen by pain services. Continue current medications. Discussed with patient. Patient earlier today told the nurse that he wanted to kill himself. Psychiatry consulted. December 20: Patient formal comfortable today. Seen by Dr. Marie by vascular. Not for I&D of the right heel of the current time. Patient is hungry for lunch. Was nothing by mouth for breakfast. December 21: Patient was reviewed by Dr. Marie from vascular. For outpatient debridement. Also to follow the patient for carotid artery stenosis. Suboptimal occlusion right ICA. Severe stenosis left ICA. Discussed with semaj lora. Discussed with ID. Per foster care case manager pending authorization for ECF December 22: Continue current medication treatment plan. Pending placement. December 23: Oral intake fair. Diet. Up in the recliner. Still getting IV Dilaudid. DC morning. Patient due to "to rehab. 12/24/2021 Patient is seen in follow-up currently being followed by infectious disease and maintained on IV daptomycin and cefepime and will continue. Patient does have a PICC line as patient has been continued on outpatient antibiotic therapy. Patient was also seen and evaluated by vascular surgery with no plans for interv entions at this time and may need additional outpatient debridement in the future. Awaiting family decision of ECF. Patient denies any chest pain, shortness of breath, or palpitations. Patient is afebrile. Patient also continued on local wound care. Rash improved. Patient with continued pain and will adjust medications. IV dilaudid discontinued per Dr. He as discussed with the patient. Active Medications Acetaminophen (Acetaminophen Tab 325 Mg Tab) 650 mg PO Q6H PRN PRN Reason: Pain or Fever > 100.5 Hydrocodone Bitart/Acetaminophen (Hydrocodone/Apap 5-325mg 1 Each Tab) 1 each PO Q6HR PRN PRN Reason: Pain Last Admin: 12/24/21 10:19 Dose: 1 each Albuterol/Ipratropium (Ipratropium-Albuterol 3 Ml Neb) 3 ml INHALATION RT-TID [facility] Last Admin: 12/24/21 12:05 Dose: Not Given Albuterol/Ipratropium (Ipratropium-Albuterol 3 Ml Neb) 3 ml INHALATION RT-Q2H PRN PRN Reason: Shortness Of Breath Or Wheezing Last Admin: 12/20/21 15:47 Dose: 3 ml Aspirin (Aspirin 81 Mg) 81 mg PO DAILY [facility] Last Admin: 12/24/21 08:10 Dose: 81 mg Atorvastatin Calcium (Atorvastatin 40 Mg Tab) 40 mg PO HS [facility] Last Admin: 12/23/21 20:58 Dose: 40 mg Budesonide (Budesonide 1 Mg/2 Ml Nebu) 1 mg INHALATION RT-BID [facility] Last Admin: 12/24/21 07:27 Dose: Not Given Bumetanide (Bumetanide 1 Mg Tab) 1 mg PO BID [facility] Last Admin: 12/24/21 08:10 Dose: 1 mg Carbamide Perox/Anhydrous Glycerin (Carbamide Peroxide 6.5% Drops 15 Ml Btl) 5 drops BOTH EARS BID [facility] Last Admin: 12/24/21 09:12 Dose: 5 drops Carvedilol (Carvedilol 12.5 Mg Tab) 12.5 mg PO BID-W/MEALS [facility] Last Admin: 12/24/21 08:11 Dose: 12.5 mg Collagenase (Collagenase 250 Unit/Gm Ointment 30 Gm Tube) 1 applic TOPICAL DAILY [facility]; Protocol Last Admin: 12/23/21 08:18 Dose: 1 applic Gabapentin (Gabapentin 300 Mg Cap) 300 mg PO BID [facility] Last Admin: 12/24/21 08:10 Dose: 300 mg Hydralazine HCl (Hydralazine Hcl 50 Mg Tab) 100 mg PO TID [facility] Last Admin: 12/24/21 08:10 Dose: 100 mg Daptomycin 500 mg/ Sodium (Chloride) 50 mls @ 100 mls/hr IVPB Q24H [facility] Last Admin: 12/24/21 08:10 Dose: 100 mls/hr Sodium Chloride (Saline 0.9%) 1,000 mls @ 20 mls/hr IV .Q24H [facility] Last Admin: 12/23/21 18:05 Dose: Not Given Cefepime HCl 2 gm/ Sodium (Chloride) 100 mls @ 25 mls/hr IVPB Q12HR [facility]; Protocol Last Admin: 12/24/21 09:10 Dose: 25 mls/hr Insulin Aspart (Insulin Aspart (Novolog) 100 Unit/Ml Vial) 5 unit SQ AC-TID [facility] Last Admin: 12/24/21 12:57 Dose: 5 unit Insulin Detemir (Insulin Detemir (Levemir) 100 Unit/Ml Syr) 18 unit SQ HS [facility] Last Admin: 12/22/21 21:38 Dose: 18 unit Levetiracetam (Levetiracetam 500 Mg Tab) 1,000 mg PO BID@0800,2000 [facility] Last Admin: 12/24/21 08:09 Dose: 1,000 mg Lidocaine (Lidocaine 5% Patch) 1 patch TOPICAL DAILY [facility]; Protocol Last Admin: 12/24/21 08:11 Dose: 1 patch Naloxone HCl (Naloxone 0.4 Mg/Ml 1 Ml Vial) 0.2 mg IV Q2M PRN PRN Reason: Opioid Reversal Oxycodone HCl (Oxycodone Er 15 Mg Tab.Er.12h) 15 mg PO Q12HR [facility]; Protocol Last Admin: 12/24/21 14:46 Dose: 15 mg Ropinirole HCl (Ropinirole Hcl 0.25 Mg Tab) 0.5 mg PO TID@0500,1300,2100 [facility] Last Admin: 12/24/21 12:59 Dose: Not Given Tamsulosin HCl (Tamsulosin 0.4 Mg Cap.Er.24h) 0.4 mg PO PC-BRKFST [facility] Last Admin: 12/24/21 08:10 Dose: 0.4 mg Ticagrelor (Ticagrelor 90 Mg Tab) 90 mg PO BID [facility] Last Admin: 12/24/21 08:10 Dose: 90 mg Physical examination: GENERAL: lying in bed, tearful, comfortable, alert and oriented x3. EYES: Pupils equal. Conjunctiva normal. HEENT: External appearance of nose and ears normal, oral cavity grossly normal. NECK: JVD not raised; masses not palpable. HEART: First and second heart sounds are normal; no edema. LUNGS: Respiratory rate normal; decreased breath sounds with no wheezing or crackles noted ABDOMEN: Soft, nontender, normal bowel sounds noted, no masses palpable. PSYCH: Alert and oriented x3; mood and affect anxious, tearful at times DERMATOLOGICAL: Maculopapular rash. Diffuse MUSCULOSKELETAL:No Clubbing/cyanosis;muscles-grossly intact. EXTREMITIES: Right heel necrotic wound. Dressing right lower extremity. Assessment: -Chronic encephalomalacia involving the right frontal lobe. Not subacute stroke as mentioned in the CT scan, per neuro -Subtotal occlusion right ICA and severe stenosis left ICA, follow with Dr. Marie outpatient -COPD in a previous smoker -Right heel diabetic wound negative for osteomyelitis per recent MRI, Improving, previous Culture positive for Acinetobacter, MRSA -chronic hypoxic respiratory failure from COPD -Normocytic anemia/iron deficiency anemia -Chronic kidney disease stage III likely diabetic nephropathy and hypertensive nephrosclerosis -Diabetes mellitus type 2, insulin dependent, uncontrolled with hyperglycemia -Essential hypertension -Diabetic peripheral neuropathy: -Restless leg syndrome: -Left below-knee amputation -PAD -Pain management -Full code Plan: Recommend to continue with IV antibiotics. Social work and case management following and patient will likely need ECF on discharge. Patient is a return to [facility] as [facility] has refused. Family member making final decision of ECF as they were not happy with the care previously. Recommend to continue with current IV abx with ID following and patient does have a PICC line to continue to complete the course of treatment. Outpatient follow up with vascular surgery. Continue local wound care. Pain medications have been adjusted. Encouraged increased activity as tolerated. Continue monitoring blood sugars achs and continue with current regimen. Prognosis is guarded. Possible discharge in 24-48 hours. The impression and plan of care has been dictated by Marilee Lyons, Nurse Practitioner as directed. Dr. Felicia MD I have performed a history and examination and MDM of this patient, discussed the same with the dictator, and agree with the dictator's assessment and plan as written ,documented as a scribe. Based on total visit time, I have performed more than 50% of the visit. Objective - Vital Signs Vital signs: Vital Signs Temp 98.7 F 12/23/21 21:00 Pulse 99 12/24/21 08:10 Resp 18 12/23/21 21:00 BP 132/72 12/24/21 08:10 Pulse Ox 94 L 12/23/21 21:00 FiO2 Intake & Output 12/23/21 12/24/21 12/24/21 18:59 06:59 18:59 Intake Total 1128 837 Output Total 1351 2500 Balance -223 -1663 Intake: Intake, IV Titration 290 Amount DAPTOmycin 500 mg In 50 Sodium Chloride 0.9% 50 ml @ 100 mls/hr IVPB Q24H [facility] Rx#:[id number] Sodium Chloride 0.9% 1, 240 000 ml @ 20 mls/hr IV . Q24H [facility] Rx#:[id number] Oral [id number] Output: Urine 1350 2500 Stool 1 Other: Voiding Method Indwelling Catheter Indwelling Catheter - Labs CBC & Chem 7: 12/24/21 05:47 12/24/21 05:47 Labs: Abnormal Lab Results - Last 24 Hours (Table) 12/23/21 12/23/21 12/23/21 Range/Units 12:30 17:12 21:03 RBC (4.30-5.90) m/uL Hgb (13.0-17.5) gm/dL Hct (39.0-53.0) % MCHC (31.0-37.0) g/dL RDW (11.5-15.5) % Chloride (98-107) mmol/L BUN (9-20) mg/dL Creatinine (0.66-1.25) mg/dL Glucose (74-99) mg/dL POC Glucose (mg/dL) 196 H 223 H 191 H (75-99) mg/dL Calcium (8.4-10.2) mg/dL Total Protein (6.3-8.2) g/dL Albumin (3.5-5.0) g/dL 12/24/21 12/24/21 12/24/21 Range/Units 05:47 05:47 07:16 RBC 2.64 L (4.30-5.90) m/uL Hgb 7.3 L (13.0-17.5) gm/dL Hct 24.9 L (39.0-53.0) % MCHC 29.2 L (31.0-37.0) g/dL RDW 16.3 H (11.5-15.5) % Chloride 112 H (98-107) mmol/L BUN 32 H (9-20) mg/dL Creatinine 1.90 H (0.66-1.25) mg/dL Glucose 154 H (74-99) mg/dL POC Glucose (mg/dL) 168 H (75-99) mg/dL Calcium 8.2 L (8.4-10.2) mg/dL Total Protein 5.7 L (6.3-8.2) g/dL Albumin 2.7 L (3.5-5.0) g/dL
[2021-12-25] MEDS: IPRATROPIUM-ALBUTEROL 3 ML NEB INHALATION PRN (01:25)
[2021-12-25 06:25] LABS: Anisocytosis Slight; Basophils # (A) 0.1 k/uL (0-0.2); Basophils % (A) 1 %; Eosinophils # (A) 0.7 k/uL (0-0.7); Eosinophils % (A) 9 %; HCT 26.5 % (39.0-53.0); HGB 7.6 gm/dL (13.0-17.5); Hypochromasia Marked; Lymphocytes # (A) 1.1 k/uL (1.0-4.8); Lymphocytes % (A) 14 %; MCH 27.2 pg (25.0-35.0); MCHC 28.6 g/dL (31.0-37.0); MCV 95.4 fL (80.0-100.0); Mean Platelet Volume 7.4; Monocytes # (A) 0.6 k/uL (0-1.0); Monocytes % (A) 8 %; Neutrophils # (A) 5.2 k/uL (1.3-7.7); Neutrophils % (A) 66 %; Platelet Count 364 k/uL (150-450); RBC 2.78 m/uL (4.30-5.90); RDW 16.4 % (11.5-15.5); WBC 7.8 k/uL (3.8-10.6)
[2021-12-25 06:53] LABS: African American GFR (CKD) 43 (>60 ml/min/1.73 sqM); Anion Gap 8 mmol/L; Blood Urea Nitrogen 29 mg/dL (9-20); Carbon Dioxide 24 mmol/L (22-30); Chloride 110 mmol/L (98-107); Glucose 155 mg/dL (74-99); Non-African American GFR(CKD) 37 (>60 ml/min/1.73 sqM); Potassium 4.9 mmol/L (3.5-5.1); Sodium 142 mmol/L (137-145)
--- NOTE | 2021-12-25 07:26 | P.PN ---
Subjective Progress Note Date: 12/24/21 Principal diagnosis: Right heel diabetic foot infection with underlying Osteomyelitis Patient is a 61 year old male with a past medical history significant for diabetes mellitus, right heel diabetic foot infection extending down to the wound culture positive for Acinetobacter MRSA and the patient was getting [facility] and [facility]com[facility] the [facility] has been brought back to the hospital with some mental status changes and also have extensive rash possibly to Unasyn which has been discontinued. On today's evaluation is 12/24/2021, the patient continues to be afebrile , the patient is breathing comfortably on nasal cannula oxygen. The patient pain to the right heel is controlled with the current medication , the patient rash has decreased in intensity and no new rash has been reported, the patient denies abdominal pain and no diarrhea has been reported by the nursing staff Objective - Vital Signs Vital signs: Vital Signs Temp 98.9 F 12/24/21 12:28 Pulse 76 12/24/21 12:28 Resp 16 12/24/21 12:28 BP 106/55 12/24/21 12:28 Pulse Ox 91 L 12/24/21 12:28 FiO2 Intake & Output 12/23/21 12/24/21 12/24/21 18:59 06:59 18:59 Intake Total 1128 837 Output Total 1351 2500 Balance -223 1663 Intake: Intake, IV Titration 290 Amount DAPTOmycin 500 mg In 50 Sodium Chloride 0.9% 50 ml @ 100 mls/hr IVPB Q24H [facility] Rx#:[id number] Sodium Chloride 0.9% 1, 240 000 ml @ 20 mls/hr IV . Q24H [facility] Rx#:[id number] Oral [id number] Output: Urine 1350 2500 Stool 1 Other: Voiding Method Indwelling Catheter Indwelling Catheter Indwelling Catheter # Bowel Movements 1 - Exam GENERAL DESCRIPTION: Middle-age male lying in bed in no distress RESPIRATORY SYSTEM: Unlabored breathing , decreased breath sounds at bases HEART: S1 S2 regular rate and rhythm , ABDOMEN: Soft , no tenderness SKIN: Diffuse macular Rash slightly decreased EXTREMITIES: Right heel wound with the slough tissue some surrounding deep tissue injury - Labs CBC & Chem 7: 12/25/21 05:54 12/25/21 05:54 Labs: Abnormal Lab Results - Last 24 Hours (Table) 05/22/22 05/22/22 05/23/22 Range/Units 17:12 21:03 05:47 RBC 2.64 L (4.30-5.90) m/uL Hgb 7.3 L (13.0-17.5) gm/dL Hct 24.9 L (39.0-53.0) % MCHC 29.2 L (31.0-37.0) g/dL RDW 16.3 H (11.5-15.5) % Chloride (98-107) mmol/L BUN (9-20) mg/dL Creatinine (0.66-1.25) mg/dL Glucose (74-99) mg/dL POC Glucose (mg/dL) 223 H 191 H (75-99) mg/dL Calcium (8.4-10.2) mg/dL Total Protein (6.3-8.2) g/dL Albumin (3.5-5.0) g/dL 12/24/21 12/24/21 12/24/21 Range/Units 05:47 07:16 11:47 RBC (4.30-5.90) m/uL Hgb (13.0-17.5) gm/dL Hct (39.0-53.0) % MCHC (31.0-37.0) g/dL RDW (11.5-15.5) % Chloride 112 H (98-107) mmol/L BUN 32 H (9-20) mg/dL Creatinine 1.90 H (0.66-1.25) mg/dL Glucose 154 H (74-99) mg/dL POC Glucose (mg/dL) 168 H 233 H (75-99) mg/dL Calcium 8.2 L (8.4-10.2) mg/dL Total Protein 5.7 L (6.3-8.2) g/dL Albumin 2.7 L (3.5-5.0) g/dL Assessment and Plan (1) Diabetic foot ulcer Current Visit: Yes Status: Acute Code(s): E11.621 - TYPE 2 DIABETES MELLITUS WITH FOOT ULCER; L97.509 - NON-PRESSURE CHRONIC ULCER OTH PRT UNSP FOOT W UNSP SEVERITY SNOMED Code(s): 424498768 Plan: 1patient with right heel diabetic foot infection in this patient who is s/p debridement and culture positive for Acinetobacter and MRSA and there was concern for the wound probing down to the bone at the time of initial debridement patient now seem to have worsening of his right heel wound with surrounding necrotic changes and will benefit from further surgical debridement, vascular surgery has seen the patient and not recommending any surgical debridement at this point 2patient with generalized maculopapular rash likely related to Unasyn which has been discontinued. The patient rash has decreased in intensity 3the patient to continue with daptomycin and cefepime x 9 more days to finish course of therapy 4local wound care to the right heel with the Santyl followed by moist dressing and keep the area off the pressure and continue supportive care Time with Patient: Less than 30
[2021-12-25 07:29] LABS: Glucose,Whole Blood 240 mg/dL (75-99)
[2021-12-25] MEDS: INSULIN ASPART (NovoLOG) 100 UNIT/ML VIAL SQ SCH ×2 (08:06→12:39)
[2021-12-25] MEDS: levETIRAcetam 500 MG TAB PO SCH (08:06)
[2021-12-25] MEDS: oxyCODONE ER 15 MG TAB.ER.12H PO SCH (08:07)
[2021-12-25] MEDS: BUDESONIDE 1 MG/2 ML NEBU INHALATION SCH (08:07)
[2021-12-25] MEDS: ASPIRIN 81 MG PO SCH (08:07)
[2021-12-25] MEDS: TAMSULOSIN 0.4 MG CAP.ER.24H PO SCH (08:08)
[2021-12-25] MEDS: GABAPENTIN 300 MG CAP PO SCH (08:08)
[2021-12-25] MEDS: carvediloL 12.5 MG TAB PO SCH ×2 (08:08→16:10)
[2021-12-25] MEDS: BUMETANIDE 1 MG TAB PO SCH (08:09)
[2021-12-25] MEDS: IPRATROPIUM-ALBUTEROL 3 ML NEB INHALATION SCH ×2 (08:09→11:26)
[2021-12-25] MEDS: CEFEPIME 2 GM in SODIUM CHLORIDE 0.9% 100 ML IVPB SCH (08:10)
[2021-12-25] MEDS: LIDOCAINE 5% PATCH TOPICAL SCH (08:11)
[2021-12-25] MEDS: hydrALAZINE HCL 50 MG TAB PO SCH ×2 (08:11→16:10)
[2021-12-25] MEDS: COLLAGENASE 250 UNIT/GM OINTMENT 30 GM TUBE TOPICAL SCH (08:13)
[2021-12-25] MEDS: TICAGRELOR 90 MG TAB PO SCH (08:13)
[2021-12-25] MEDS: CARBAMIDE PEROXIDE 6.5% DROPS 15 ML BTL BOTH EARS SCH (08:14)
[2021-12-25] MEDS: DAPTOmycin 500 MG in SODIUM CHLORIDE 0.9% 50 ML IVPB SCH (08:27)
[2021-12-25 11:37] LABS: Glucose,Whole Blood 169 mg/dL (75-99)
[2021-12-25] MEDS: SODIUM CHLORIDE 0.9% 1,000 ML IV SCH (11:49)
[2021-12-25 12:02] VITALS: RESP 19; TEMP 98.6
--- NOTE | 2021-12-25 13:40 | P.DS ---
Providers Date of admission: 12/18/21 10:29 Expected date of discharge: 12/25/21 Attending physician: Graham He Consults: 12/18/21 10:29 Consult Physician Routine Consulting Provider: Meño No Consult Reason/Comments: cva Do you want consulting provider notified?: Yes 12/18/21 10:30 Consult Physician Routine Consulting Provider: Estefanía Zhu Consult Reason/Comments: leg wound Do you want consulting provider notified?: Yes 12/18/21 20:00 Consult Physician Routine Consulting Provider: Rusty Montalvo Consult Reason/Comments: PAD/pain Do you want consulting provider notified?: Yes 12/19/21 11:56 Consult Physician Urgent Consulting Provider: Jeffrey Michel Consult Reason/Comments: severe anxiety Do you want consulting provider notified?: Yes Primary care physician: Jeffrey Smalls [facility] Course: Final diagnosis -Chronic encephalomalacia involving the right frontal lobe. Not subacute stroke as mentioned in the CT scan, per neuro -Subtotal occlusion right ICA and severe stenosis left ICA, follow with Dr. Marie outpatient -COPD in a previous smoker -Right heel diabetic wound negative for osteomyelitis per recent MRI, Improving, previous Culture positive for Acinetobacter, MRSA -chronic hypoxic respiratory failure from COPD -Normocytic anemia/iron deficiency anemia -Chronic kidney disease stage III likely diabetic nephropathy and hypertensive nephrosclerosis -Diabetes mellitus type 2, insulin dependent, uncontrolled with hyperglycemia -Essential hypertension -Diabetic peripheral neuropathy: -Restless leg syndrome -Left below-knee amputation -PAD -Pain management -Full code Discharge disposition Patient is being discharged in a stable condition with guarded prognosis to [facility] for continued PT/OT therapy and IV antibiotic therapy. Patient will follow-up with Dr. Smalls in the outpatient setting upon discharge. Patient is to continue with IV daptomycin and cefepime as scheduled per infectious disease recommendations for the next 9 days to complete the course. Patient also to continue with local wound care as mentioned below and outpatient follow-up at the wound center with infectious disease along with vascular surgery in the outpatient setting. Total time taken is greater than 35 minutes. Hospital course This is a 61-year-old male who was recently admitted with maculopapular rash that it developed shortly after IV Unasyn while at the [facility] and brought here for further evaluation. Infectious disease was consulted and IV antibiotics were changed to cefepime and daptomycin and patient showed improvement in his rash and does have a PICC line as he had been receiving outpatient IV antibiotic therapy. Patient follows with vascular surgery and will continue to follow in the outpatient setting. Patient with uncontrolled hyperglycemia diabetes mellitus recommend to continue with Accu-Cheks before meals and at bedtime and continue with pre-meal insulin along with long acting a nd may need additional sliding scale as needed. Recommend consistent carb diet. Patient continues with weakness as well and unable to care for himself and daughter of whom he lives with is unable to care for him at this time and patient will be returning to [facility] to complete his IV antibiotic therapy. Recommend continue with breathing inhalational treatments 4 times a day and as needed and continue with oxygen supplementation as needed as well. Per nursing staff patient is frequently noncompliant with oxygen and removed the nasal cannula frequently. Encouraged increased activity as tolerated and strongly encouraged outpatient follow-up with primary care provider and other medical consultants such as vascular surgery and infectious disease. Currently no reports of chest pain, shortness of breath, or palpitations. Patient is afebrile. No reports of nausea or vomiting and patient is tolerating diet. Patient will be going to [facility] today. Guarded prognosis. Physical exam: Gen: This is a 61-year-old male awake, alert and oriented 3, well-developed, well-nourished, obese. HEENT: Head is atraumatic, normocephalic. Pupils equal, round. Sclerae is anicteric. NECK: Supple. No JVD. No lymphadenopathy. No thyromegaly. LUNGS: Diminished breath sounds bilaterally with some scattered rhonchi noted. No intercostal retractions. HEART: Regular rate and rhythm. No murmur. ABDOMEN: Soft. Obese. Bowel sounds are present. No masses. No tenderness. EXTREMITIES: No pedal edema. No calf tenderness. Left BKA NEUROLOGICAL: Patient is awake, alert and oriented x3. Cranial nerves 2 through 12 are grossly intact. Diffusely weak Skin: Right heel wound noted with some tissue sloughing and deep tissue injury Please refer to medication reconciliation sheet for a list of medications. The impression and plan of care has been dictated by Marilee Lyons, Nurse Practitioner as directed. Dr. Yogesh MD I have performed a history and examination and MDM of this patient, discussed the same with the dictator, and agree with the dictator's assessment and plan as written ,documented as a scribe. Based on total visit time, I have performed more than 50% of the visit. Patient Condition at Discharge: Stable Plan - Discharge Summary Discharge Rx Participant: No New Discharge Prescriptions: New Aspirin 81 mg PO DAILY Carbamide Peroxide [Debrox Otic] 5 drops BOTH EARS BID ml DAPTOmycin [Daptomycin] 6,000 mg IV DAILY #14 each Lidocaine 5% Patch [Lidoderm 5% Patch] 1 patch TOPICAL DAILY patch oxyCODONE ER [OxyCONTIN] 15 mg PO Q12HR #4 tab Collagenase [Santyl Ointment] 1 applic TOPICAL DAILY Cefepime [Maxipime] 2 gm IVPB Q12H #28 each Ipratropium-Albuterol Nebulize [Duoneb 0.5 mg-3 mg/3 ml Soln] 3 ml INHALATION RT-Q2H PRN each PRN Reason: Shortness Of Breath Or Wheezing Insulin Detemir (Levemir) [Levemir] 18 unit SQ HS each Atorvastatin [Lipitor] 40 mg PO HS tab HYDROcodone/APAP 5-325MG [[place] 5-325] 1 each PO Q6HR PRN #6 tab PRN Reason: Pain Continue Carvedilol [Coreg] 12.5 mg PO BID Tamsulosin [Flomax] 0.4 mg PO PC-BRKFST #30 Acetaminophen Tab [Tylenol] 650 mg PO Q6H PRN PRN Reason: Pain Or Fever > 100.5 levETIRAcetam [Keppra] 1,000 mg PO BID@0800,2000 Ipratropium-Albuterol Nebulize [Duoneb 0.5 mg-3 mg/3 ml Soln] 3 ml INHALATION RT-Q8H Ticagrelor [Brilinta] 90 mg PO BID Ketoconazole 2% Shampoo [Nizoral] 1 applic TOPICAL WESA Bumetanide [BUMEX] 1 mg PO BID 30 Days #60 tablet Budesonide [Pulmicort] 1 mg INHALATION RT-BID ml rOPINIRole HCL [Requip] 0.5 mg PO TID@0500,1300,2100 Changed Insulin Lispro [humaLOG Kwikpen] 5 units SQ AC-TID 30 Days #6 ml Gabapentin [Neurontin] 300 mg PO BID #6 cap hydrALAZINE HCL [Apresoline] 100 mg PO TID #0 Discontinued Gabapentin [Neurontin] 100 mg PO DAILY 3 Days #3 cap DAPTOmycin [Cubicin] 500 mg IV HS Insulin Detemir (Levemir) [Levemir] 10 unit SQ HS Ampicillin-Sulbactam [Unasyn] 3 gm IVPB Q6HR 27 Days #108 each oxyCODONE-APAP 10-325MG [Percocet 10-325 mg] 1 tab PO Q4H PRN PRN Reason: Pain Discharge Medication List Carvedilol [Coreg] 12.5 mg PO BID 11/09/21 [History] Ketoconazole 2% Shampoo [Nizoral] 1 applic TOPICAL WESA 11/09/21 [History] Ticagrelor [Brilinta] 90 mg PO BID 11/09/21 [History] Bumetanide [BUMEX] 1 mg PO BID 30 Days #60 tablet 11/30/21 [Rx] Tamsulosin [Flomax] 0.4 mg PO PC-BRKFST #30 11/30/21 [Rx] Budesonide [Pulmicort] 1 mg INHALATION RT-BID ml 12/05/21 [Rx] Acetaminophen Tab [Tylenol] 650 mg PO Q6H PRN 12/18/21 [History] Ipratropium-Albuterol Nebulize [Duoneb 0.5 mg-3 mg/3 ml Soln] 3 ml INHALATION RT-Q8H 12/18/21 [History] levETIRAcetam [Keppra] 1,000 mg PO BID@0800,2000 12/18/21 [History] rOPINIRole HCL [Requip] 0.5 mg PO TID@0500,1300,2100 12/18/21 [History] Aspirin 81 mg PO DAILY 12/21/21 [Rx] Carbamide Peroxide [Debrox Otic] 5 drops BOTH EARS BID ml 12/21/21 [Rx] Cefepime [Maxipime] 2 gm IVPB Q12H #28 each 12/21/21 [Rx] Collagenase [Santyl Ointment] 1 applic TOPICAL DAILY 12/21/21 [Rx] DAPTOmycin [Daptomycin] 6,000 mg IV DAILY #14 each 12/21/21 [Rx] Gabapentin [Neurontin] 300 mg PO BID #6 cap 12/21/21 [Rx] Insulin Lispro [humaLOG Kwikpen] 5 units SQ AC-TID 30 Days #6 ml 12/21/21 [Rx] hydrALAZINE HCL [Apresoline] 100 mg PO TID #0 12/21/21 [Rx] Atorvastatin [Lipitor] 40 mg PO HS tab 12/25/21 [Rx] HYDROcodone/APAP 5-325MG [[place] 5-325] 1 each PO Q6HR PRN #6 tab 12/25/21 [Rx] Insulin Detemir (Levemir) [Levemir] 18 unit SQ HS each 12/25/21 [Rx] Ipratropium-Albuterol Nebulize [Duoneb 0.5 mg-3 mg/3 ml Soln] 3 ml INHALATION RT-Q2H PRN each 12/25/21 [Rx] Lidocaine 5% Patch [Lidoderm 5% Patch] 1 patch TOPICAL DAILY patch 12/25/21 [Rx] oxyCODONE ER [OxyCONTIN] 15 mg PO Q12HR #4 tab 12/25/21 [Rx] Follow up Appointment(s)/Referral(s): Jeffrey Smalls DO [Primary Care Provider] - 1-2 days Mirza Marie DO [Doctor of Osteopathic Medicine] - 1 Week W[facility] [NON-STAFF] - 1 Week Ambulatory/Diagnostic Orders: Complete Blood Count w/diff [LAB.AMB] Time Frame: 3 Days, Location: None Selected Activity/Diet/Wound Care/Special Instructions: Patient is returning to [facility] Activity as tolerated next Patient will continue on IV antibiotics per infectious disease recommendations for an additional 9 days to complete a course Recommend follow-up in the outpatient setting with infectious disease along with vascular surgery Recommend continue monitoring Accu-Cheks before meals and at bedtime Recommend continue with consistent carb diet Patient is to continue with wound care the right lower extremity by cleansing daily and applying Aquasol silver with a 4 x 4 and Kerlix and apply dry Aquasol to the open areas of the right jara daily along with a 4 x 4 and Kerlix and apply Santyl ointment to the right heel ulcer daily with wet-to-dry dressing Recommend outpatient follow-up labs of CBC and BMP in 2-3 days Discharge Disposition: TRANSFER TO SNF/ECF
[2021-12-25 15:08] VITALS: BP 150/64; PULSE 76
== END 2021-12-25 17:07 | DRG 190 ==
LOC: EC 07:29 → 4SSUR 10:29 → 3SCARD 15:20 → 5NMEDONC 12-19 23:13
PROVIDERS: ADMIT Hospitalist; ATTEND Hospitalist
DX: J44.0 Chronic obstructive pulmonary disease with (acute) lower respiratory infection (principal); J18.9 Pneumonia, unspecified organism; J96.11 Chronic respiratory failure with hypoxia; L03.115 Cellulitis of right lower limb; L97.415 Non-pressure chronic ulcer of right heel and midfoot with muscle involvement without evidence of necrosis; L97.812 Non-pressure chronic ulcer of other part of right lower leg with fat layer exposed; L97.508 Non-pressure chronic ulcer of other part of unspecified foot with other specified severity; L97.418 Non-pressure chronic ulcer of right heel and midfoot with other specified severity; L98.495 Non-pressure chronic ulcer of skin of other sites with muscle involvement without evidence of necrosis; R45.851 Suicidal ideations; J44.1 Chronic obstructive pulmonary disease with (acute) exacerbation; D50.9 Iron deficiency anemia, unspecified; E11.22 Type 2 diabetes mellitus with diabetic chronic kidney disease; E11.42 Type 2 diabetes mellitus with diabetic polyneuropathy; E11.51 Type 2 diabetes mellitus with diabetic peripheral angiopathy without gangrene; E11.621 Type 2 diabetes mellitus with foot ulcer; E11.628 Type 2 diabetes mellitus with other skin complications; E11.649 Type 2 diabetes mellitus with hypoglycemia without coma; E11.65 Type 2 diabetes mellitus with hyperglycemia; E11.21 Type 2 diabetes mellitus with diabetic nephropathy; E66.9 Obesity, unspecified; F17.200 Nicotine dependence, unspecified, uncomplicated; F41.9 Anxiety disorder, unspecified; G25.81 Restless legs syndrome; G40.909 Epilepsy, unspecified, not intractable, without status epilepticus; G93.89 Other specified disorders of brain; I12.9 Hypertensive chronic kidney disease with stage 1 through stage 4 chronic kidney disease, or unspecified chronic kidney disease; I49.3 Ventricular premature depolarization; I65.23 Occlusion and stenosis of bilateral carotid arteries; L30.9 Dermatitis, unspecified; R23.8 Other skin changes; N18.30 Chronic kidney disease, stage 3 unspecified; Z79.02 Long term (current) use of antithrombotics/antiplatelets; Z79.4 Long term (current) use of insulin; Z79.82 Long term (current) use of aspirin; Z79.899 Other long term (current) drug therapy; Z79.51 Long term (current) use of inhaled steroids; Z86.14 Personal history of Methicillin resistant Staphylococcus aureus infection; Z86.73 Personal history of transient ischemic attack (TIA), and cerebral infarction without residual deficits; Z88.0 Allergy status to penicillin; Z89.512 Acquired absence of left leg below knee; Z91.19 Patient's noncompliance with other medical treatment and regimen; Z75.1 Person awaiting admission to adequate facility elsewhere; Z99.3 Dependence on wheelchair; Z88.1 Allergy status to other antibiotic agents; Z88.8 Allergy status to other drugs, medicaments and biological substances
CPT/HCPCS: 36415; 70450; 71045; 80048; 80053; 81001; 83605; 85025; 85027; 86850; 86900; 86901; 93005; 93880; 94640; 94760; 96365; 96366; 96375; 96376; 99285

== ENCOUNTER 2022-01-05 20:28 | Inpatient (IN) | payer MEDICARE ==
[2022-01-05] MEDS ORDERED: HYDROmorphone 1 MG/ML 1 ML SYRINGE IVP STA ×2 (21:45→23:13)
[2022-01-05 22:05] LABS: Basophils # (A) 0.1 k/uL (0-0.2); Basophils % (A) 1 %; Eosinophils # (A) 0.5 k/uL (0-0.7); Eosinophils % (A) 5 %; HCT 28.8 % (39.0-53.0); HGB 8.2 gm/dL (13.0-17.5); Hypochromasia Marked; Lymphocytes % (A) 10 %; MCH 27.1 pg (25.0-35.0); MCHC 28.6 g/dL (31.0-37.0); MCV 94.9 fL (80.0-100.0); Mean Platelet Volume 6.9; Monocytes # (A) 0.7 k/uL (0-1.0); Monocytes % (A) 7 %; Neutrophils # (A) 7.6 k/uL (1.3-7.7); Neutrophils % (A) 75 %; Platelet Count 353 k/uL (150-450); RBC 3.04 m/uL (4.30-5.90); RDW 15.4 % (11.5-15.5)
--- NOTE | 2022-01-05 22:11 | XR ---
EXAMINATION TYPE: XR chest 2V DATE OF EXAM: 01/05/2022 COMPARISON: 12/18/2021 HISTORY: Weakness TECHNIQUE: FINDINGS: Heart is normal. There is some coarsening of the interstitial markings. Slight blunting is seen of the costophrenic angles. There are no hilar masses. IMPRESSION: Small right pleural effusion. Coarse lung markings. No definite heart failure. Lung ivanna ngs improved compared to last exam.
[2022-01-05 22:21] LABS: Albumin 3.4 g/dL (3.5-5.0); Calcium 8.1 mg/dL (8.4-10.2); Potassium 5.8 mmol/L (3.5-5.1); Total Bilirubin 0.2 mg/dL (0.2-1.3); Total Protein 7.2 g/dL (6.3-8.2)
--- NOTE | 2022-01-05 22:22 | ED ---
SOB HPI - General Chief Complaint: Shortness of Breath Stated Complaint: blood gluclose 538 @1836 Time Seen by Provider: 01/05/22 20:35 Source: patient Mode of arrival: wheelchair Limitations: no limitations - History of Present Illness Initial Comments: 61-year-old male with past history of diabetes, BKA left leg, CVA who presents to the emergency department for weakness, shortness of breath and syncope. Patient was discharged from [facility] yesterday. He states that they discharged him prematurely as he is still considerably weak and requiring oxygen. He reports that he was discharged home without any oxygen and without pain medications. He went to live with his daughter. Daughter states that he was having significant difficulty at home breathing without his oxygen. He did have oxygen delivered today however they were never told how to use it. Patient was not wearing the oxygen when he ended up passing out. He admits that he hit his head however did not lose consciousness. Patient and daughter became overtly frustrated with the fact that the patient is not doing well at home and therefore daughter brought him back into the emergency department. Upon arrival patient is placed in the triage sesay and appears in significant respiratory distress. Patient rushed back to trauma bay 2 - Related Data Home Medications Medication Instructions Recorded Confirmed Carvedilol [Coreg] 12.5 mg PO BID 11/09/21 01/05/22 Ketoconazole 2% Shampoo [Nizoral] 1 applic TOPICAL DIRECTED PRN 11/09/21 01/05/22 Ticagrelor [Brilinta] 90 mg PO BID 11/09/21 01/05/22 Ipratropium-Albuterol Nebulize 3 ml INHALATION RT-Q8H 12/18/21 01/05/22 [Duoneb 0.5 mg-3 mg/3 ml Soln] levETIRAcetam [Keppra] 1,000 mg PO BID 12/18/21 01/05/22 Bumetanide [BUMEX] 2 mg PO DAILY 01/05/22 01/05/22 Tamsulosin [Flomax] 0.4 mg PO DAILY 01/05/22 01/05/22 rOPINIRole HCL [Requip] 0.5 mg PO TID 01/05/22 01/05/22 Previous Rx's Medication Instructions Recorded Aspirin 81 mg PO DAILY 12/21/21 Collagenase [Santyl Ointment] 1 applic TOPICAL DAILY 12/21/21 hydrALAZINE HCL [Apresoline] 100 mg PO TID #0 12/21/21 Atorvastatin [Lipitor] 40 mg PO HS tab 12/25/21 Gabapentin [Neurontin] 300 mg PO BID #60 cap 01/08/22 HYDROcodone/APAP 5-325MG [Ambia 1 tab PO Q6HR PRN 3 Days #12 tab 01/08/22 5-325] Insulin Detemir (Levemir) [Levemir] 22 unit SQ HS #0 each 01/08/22 Insulin Lispro [humaLOG Kwikpen] 8 units SQ AC-TID #0 01/08/22 Allergies Allergy/AdvReac Type Severity Reaction Status Date / Time ampicillin [From Unasyn] Allergy Rash/Hives Verified 01/05/22 20:37 sulbactam [From Unasyn] Allergy Rash/Hives Verified 01/05/22 20:37 Review of Systems ROS Statement: Those systems with pertinent positive or pertinent negative responses have been documented in the HPI. ROS Other: All systems not noted in ROS Statement are negative. 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), MRSA, VRE Date of last positivie culture/infection: 11/30/21 VRE; 11/11/21-MRSA MDRO Source:: Blood-VRE; Right heel-MRSA & MDRO Additional Past Surgical History / Comment(s): BKA right leg Past Anesthesia/Blood Transfusion Reactions: No Reported Reaction Past Psychological History: No Psychological Hx Reported Smoking Status: Current every day smoker Past Alcohol Use History: None Reported Past Drug Use History: None Reported General Exam Limitations: no limitations General appearance: alert, anxious, in distress Head exam: Present: atraumatic, normocephalic, normal inspection Eye exam: Present: normal appearance, PERRL, EOMI. Absent: scleral icterus, conjunctival injection, periorbital swelling ENT exam: Present: normal exam, mucous membranes moist Neck exam: Present: normal inspection. Absent: tenderness, meningismus, lymphadenopathy Respiratory exam: Present: respiratory distress, accessory muscle use, decreased breath sounds. Absent: wheezes, rales, rhonchi, stridor Cardiovascular Exam: Present: normal rhythm, tachycardia, normal heart sounds. Absent: systolic murmur, diastolic murmur, rubs, gallop, clicks GI/Abdominal exam: Present: soft, normal bowel sounds. Absent: distended, tenderness, guarding, rebound, rigid Extremities exam: Present: normal capillary refill, other (right leg bka). Absent: tenderness, pedal edema, joint swelling, calf tenderness Back exam: Present: normal inspection Neurological exam: Present: alert, oriented X3, CN II-XII intact Psychiatric exam: Present: depressed, anxious Skin exam: Present: warm, intact, normal color, diaphoretic. Absent: rash Course Vital Signs 01/05/22 01/05/22 20:33 22:59 Temperature 98.2 F Pulse Rate 105 H 99 Respiratory 20 22 Rate Blood Pressure 149/65 131/71 O2 Sat by Pulse 96 96 Oximetry - Reevaluation(s) Reevaluation #1: 01/05/22 23:[address] Miller - patient will need more than 1 night hospital stay - will be admitted to Dr. He Medical Decision Making - Medical Decision Making On arrival patient was placed into trauma 2. He is placed on supplemental oxygen. He is requesting pain medications for which I did provide him. Laboratory studies are performed. Chest x-ray performed. Patient and daughter stating that he is having failure to thrive. As there are concerns in regards to patient's supplemental oxygen and social situation I did agree to admit the patient. I spoke with Dr. Miller who feels the patient will require more than a 1 night stay since tomorrow is Friday and case management will not be available. Patient will be admitted to Dr. He at this time - Lab Data Result diagrams: 01/07/22 06:39 01/07/22 06:39 Lab Results 01/05/22 01/05/22 01/05/22 Range/Units 21:37 21:37 21:37 WBC 10.0 (3.8-10.6) k/uL RBC 3.04 L (4.30-5.90) m/uL Hgb 8.2 L (13.0-17.5) gm/dL Hct 28.8 L (39.0-53.0) % MCV 94.9 (80.0-100.0) fL MCH 27.1 (25.0-35.0) pg MCHC 28.6 L (31.0-37.0) g/dL RDW 15.4 (11.5-15.5) % Plt Count 353 (150-450) k/uL MPV 6.9 Neutrophils % 75 % Lymphocytes % 10 % Monocytes % 7 % Eosinophils % 5 % Basophils % 1 % Neutrophils # 7.6 (1.3-7.7) k/uL Lymphocytes # 1.0 (1.0-4.8) k/uL Monocytes # 0.7 (0-1.0) k/uL Eosinophils # 0.5 (0-0.7) k/uL Basophils # 0.1 (0-0.2) k/uL Hypochromasia Marked PT 11.0 (9.0-12.0) sec INR 1.0 (<1.2) APTT 34.8 H (22.0-30.0) sec Sodium 141 (137-145) mmol/L Potassium 5.8 H (3.5-5.1) mmol/L Chloride 106 (98-107) mmol/L Carbon Dioxide 26 (22-30) mmol/L Anion Gap 9 mmol/L BUN 43 H (9-20) mg/dL Creatinine 1.90 H (0.66-1.25) mg/dL Est GFR (CKD-EPI)AfAm 43 (>60 ml/min/1.73 sqM) Est GFR (CKD-EPI)NonAf 37 (>60 ml/min/1.73 sqM) Glucose 253 H (74-99) mg/dL Plasma Lactic Acid Donny (0.7-2.0) mmol/L Calcium 8.1 L (8.4-10.2) mg/dL Total Bilirubin 0.2 (0.2-1.3) mg/dL AST 27 (17-59) U/L ALT 11 (4-49) U/L Alkaline Phosphatase 88 (38-126) U/L Troponin I (0.000-0.034) ng/mL Total Protein 7.2 (6.3-8.2) g/dL Albumin 3.4 L (3.5-5.0) g/dL 06/04/22 06/04/22 Range/Units 21:37 21:37 WBC (3.8-10.6) k/uL RBC (4.30-5.90) m/uL Hgb (13.0-17.5) gm/dL Hct (39.0-53.0) % MCV (80.0-100.0) fL MCH (25.0-35.0) pg MCHC (31.0-37.0) g/dL RDW (11.5-15.5) % Plt Count (150-450) k/uL MPV Neutrophils % % Lymphocytes % % Monocytes % % Eosinophils % % Basophils % % Neutrophils # (1.3-7.7) k/uL Lymphocytes # (1.0-4.8) k/uL Monocytes # (0-1.0) k/uL Eosinophils # (0-0.7) k/uL Basophils # (0-0.2) k/uL Hypochromasia PT (9.0-12.0) sec INR (<1.2) APTT (22.0-30.0) sec Sodium (137-145) mmol/L Potassium (3.5-5.1) mmol/L Chloride (98-107) mmol/L Carbon Dioxide (22-30) mmol/L Anion Gap mmol/L BUN (9-20) mg/dL Creatinine (0.66-1.25) mg/dL Est GFR (CKD-EPI)AfAm (>60 ml/min/1.73 sqM) Est GFR (CKD-EPI)NonAf (>60 ml/min/1.73 sqM) Glucose (74-99) mg/dL Plasma Lactic Acid Donny 1.4 (0.7-2.0) mmol/L Calcium (8.4-10.2) mg/dL Total Bilirubin (0.2-1.3) mg/dL AST (17-59) U/L ALT (4-49) U/L Alkaline Phosphatase (38-126) U/L Troponin I <0.012 (0.000-0.034) ng/mL Total Protein (6.3-8.2) g/dL Albumin (3.5-5.0) g/dL - EKG Data EKG Comments: EKG demonstrates sinus tachycardia with a rate of 100. IN interval 157. QRS 85. QTC of 37. No acute ST segment elevations or depressions Disposition Clinical Impression: Diabetic infection of right foot, Acute respiratory insufficiency, Hyperkalemia Disposition: ADMITTED IP TO THIS HOSP Condition: Stable Is patient prescribed a controlled substance at d/c from ED?: No Time of Disposition: 23:14 Decision to Admit Reason: Admit from EC Decision Date: 01/05/22 Decision Time: 23:14
[2022-01-05 22:27] LABS: Partial Thromboplastin Time 34.8 sec (22.0-30.0)
[2022-01-05] MEDS ORDERED: DEXTROSE 50% SYRINGE 50 ML IVP STA (22:40)
[2022-01-05] MEDS ORDERED: INSULIN REGULAR 100 UNIT/ML VIAL (IV) IV ONE (22:41)
[2022-01-05] MEDS: SODIUM CHLORIDE 0.9% 1,000 ML IV SCH (22:51)
[2022-01-05] MEDS ORDERED: NALOXONE 0.4 MG/ML 1 ML VIAL IV PRN (23:14)
[2022-01-06] MEDS: diphenhydrAMINE 25 MG CAP PO PRN ×2 (01:27→20:38)
[2022-01-06 06:57] LABS: Glucose,Whole Blood 144 mg/dL (75-99)
[2022-01-06 08:15] LABS: Anisocytosis Slight; Basophils # (A) 0.1 k/uL (0-0.2); Basophils % (A) 1 %; Eosinophils # (A) 0.4 k/uL (0-0.7); Eosinophils % (A) 5 %; HGB 7.1 gm/dL (13.0-17.5); Hypochromasia Marked; Lymphocytes # (A) 1.1 k/uL (1.0-4.8); Lymphocytes % (A) 15 %; MCH 27.9 pg (25.0-35.0); MCHC 29.8 g/dL (31.0-37.0); MCV 93.8 fL (80.0-100.0); Mean Platelet Volume 7.7; Monocytes # (A) 0.6 k/uL (0-1.0); Monocytes % (A) 7 %; Neutrophils # (A) 5.4 k/uL (1.3-7.7); Neutrophils % (A) 70 %; Platelet Count 301 k/uL (150-450); RBC 2.56 m/uL (4.30-5.90); WBC 7.7 k/uL (3.8-10.6)
[2022-01-06 08:25] LABS: Calcium 7.5 mg/dL (8.4-10.2); Potassium 5.6 mmol/L (3.5-5.1)
[2022-01-06] MEDS: INSULIN ASPART (NovoLOG) 100 UNIT/ML VIAL SQ SCH ×4 (08:30→17:21)
[2022-01-06] MEDS ORDERED: SODIUM ZIRCONIUM CYCLOSILICATE 10 GM PACKET PO ONE ×2 (08:37→17:00)
[2022-01-06 09:50] LABS: Glucose,Whole Blood 139 mg/dL (75-99)
[2022-01-06] MEDS: carvediloL 12.5 MG TAB PO SCH ×2 (09:57→20:37)
[2022-01-06] MEDS: IPRATROPIUM-ALBUTEROL 3 ML NEB INHALATION PRN ×2 (09:57→15:15)
[2022-01-06] MEDS: TICAGRELOR 90 MG TAB PO SCH ×2 (09:57→20:38)
[2022-01-06] MEDS: levETIRAcetam 500 MG TAB PO SCH ×2 (09:57→20:38)
[2022-01-06] MEDS: TAMSULOSIN 0.4 MG CAP.ER.24H PO SCH (09:58)
[2022-01-06] MEDS: BUMETANIDE 1 MG TAB PO SCH (09:58)
[2022-01-06] MEDS: hydrALAZINE HCL 50 MG TAB PO SCH ×3 (09:58→20:51)
[2022-01-06] MEDS: ASPIRIN 81 MG PO SCH (09:58)
[2022-01-06] MEDS ORDERED: HALOPERIDOL LACTATE 5 MG/ML 1 ML VIAL IM ONE ×2 (10:00→10:15)
--- NOTE | 2022-01-06 10:03 | XR ---
EXAMINATION TYPE: XR chest 1V portable DATE OF EXAM: 01/06/2022 COMPARISON: 01/05/2022 HISTORY: Respiratory distress TECHNIQUE: Single frontal view of the chest is obtained. FINDINGS: Heart is enlarged and diffuse interstitial pattern. Subsegmental changes at the lung bases with no sizable pleural effusion or pneumothorax. Mild AC joint arthropathy. IMPRESSION: Correlate for chronic interstitial lung disease, interstitial pneumonitis also in the di fferential diagnosis.
[2022-01-06] MEDS: SODIUM CHLORIDE 0.9% 1,000 ML IV SCH ×3 (10:07→20:43)
[2022-01-06 11:53] LABS: Glucose,Whole Blood 159 mg/dL (75-99)
[2022-01-06] MEDS ORDERED: HYDROmorphone 0.5 MG/0.5 ML SYRINGE IVP PRN (13:19)
[2022-01-06 16:41] LABS: Glucose,Whole Blood 532 mg/dL (75-99)
[2022-01-06 16:41] LABS: Glucose,Whole Blood >600 mg/dL (75-99)
[2022-01-06 16:41] LABS: Glucose,Whole Blood 98 mg/dL (75-99)
--- NOTE | 2022-01-06 17:12 | P.HPIM ---
History of Present Illness H&P Date: 01/06/22 Chief Complaint: Hypoxic This is a 61-year-old patient, follows with Dr. Smalls Chronic stable medical conditions include diabetes, hypertension, left below- knee amputation. admitted to the hospital on 11/09/2021 with a right foot nonhealing ulcer. Had been a smoker up to recently. Wound on right heel, wound cultures were positive for Acinetobacter and MRSA. MRI was negative for osteomyelitis. Seen by pain services for chronic pain. Neuropathic pain. Admitted with acute COPD exacerbation, pneumonia, right heel wound. IV Unasyn daptomycin continued. Bronchodilators. Steroids. For neuropathic pain , Neurontin was increased. seen by pain services. Patient was discharged to rehab Was in hospital and not a part of December. Discharged on December 25. Wound on the right heel. Seen by vascular team Dr. Marie. For outpatient follow-up. Was discharged to rehab. She was discharged from rehab to home yesterday. Patient felt he was discharged prematurely. Was discharged without oxygen and no pain medications. He went to live with his daughter. They were not told how to use oxygen. Apparently fell down and bumped his head. No loss of consciousness. As the daughter brought the patient back to the ER. Was placed in trauma to because of his respiratory status. This morning patient feeling much better. Most to go home. Wants pain medications for his foot. Review of systems: GEN.: Tired EYES: None HEENT: None NECK: None RESPIRATORY: As above CARDIOVASCULAR: None GASTROINTESTINAL: None GENITOURINARY: None MUSCULOSKELETAL: Joint pains LYMPHATICS: None HEMATOLOGICAL: None PSYCHIATRY: [Anxious NEUROLOGICAL: None Past medical history to include: Stroke, diabetes, hypertension, left below-knee amputation, right heel wound, PAD Social history: Discharged to home yesterday from of [place], smoked 2 packs a day for 45 years up October 2021. No alcohol. . 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 Conjunctiva normal. HEENT: External appearance of nose and ears normal, oral cavity grossly normal. NECK: JVD not raised; masses not palpable. HEART: First and second heart sounds are normal; no edema. LUNGS: Respiratory rate increased; decreased breath sounds ABDOMEN: Soft, nontender, liver spleen not palpable, no masses palpable. PSYCH: Alert and oriented x3; mood and affect anxious DERMATOLOGICAL: Maculopapular rash. Diffuse MUSCULOSKELETAL:No Clubbing/cyanosis;muscles-grossly intact. EXTREMITIES: Right heel necrotic wound. Dressing right lower extremity. Dry skin. INVESTIGATIONS, reviewed in the clinical context: January 06: White count 7.7 hemoglobin 7.1 platelets 301 potassium 5.6. 44 creatinine 1.73 Recent admission: Carotid Doppler:Subtotal occlusion right ICA and severe stenosis left ICA December 20: Hemoglobin 7 December 19: Potassium 5.1 BUN 37 creatinine 1.81 2-D echocardiogram: EF 60 - 65% Doppler ultrasound December 10 right lower extremity: Negative for DVT Assessment and plan: -Acute hypoxic respiratory failure from COPD exacerbation Patient is unable to use his oxygen at home. Circumstances unclear. Supplemental oxygen. -Chronic encephalomalacia involving the right frontal lobe. -Subtotal occlusion right ICA and severe stenosis left ICA Follow with Dr. Marie outpatient - Acute COPD exacerbation in a previous smoker: DuoNeb 4 times a day. Pulmicort nebulizer twice a day. -Right heel diabetic wound negative for osteomyelitis per recent MRI.: Previous Culture positive for Acinetobacter, MRSA IV cefepime., IV daptomycin on recent admission.. Consult vascular Dr. Marie.: -chronic hypoxic respiratory failure from COPD On home oxygen -Normocytic anemia/iron deficiency anemia -Chronic kidney disease stage III likely diabetic nephropathy and hypertensive nephrosclerosis Creatinine 1.68 on November 09 -Diabetes mellitus type 2, chronically on insulin: Controlled with hypoglycemia Levemir 18 units. Decrease to 5 units with meals Humalog. Sliding scale. -Essential hypertension Coreg 12.5 mg twice a day hydralazine 100 mg 2 times a day -Diabetic peripheral neuropathy: Neurontin 300 mg twice a day -Restless leg syndrome: Requip 0.5 mg by mouth 3 times a day -Left below-knee amputation -PAD . -Chronic pain. Patient seen by pain management team last admission. Continue [place] per the recommendations. -Full code DuoNeb. No lice Pulmicort. Resume home medications. Follow Accu-Cheks. Resume [place] Neurontin. Consult vascular. Consult ID. 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), MRSA, VRE Date of last positivie culture/infection: 11/30/21 VRE; 11/11/21-MRSA MDRO Source:: Blood-VRE; Right heel-MRSA & MDRO Additional Past Surgical History / Comment(s): BKA right leg Past Anesthesia/Blood Transfusion Reactions: No Reported Reaction Past Psychological History: No Psychological Hx Reported Smoking Status: Current every day smoker Past Alcohol Use History: None Reported Past Drug Use History: None Reported Medications and Allergies Home Medications Medication Instructions Recorded Confirmed Type Carvedilol [Coreg] 12.5 mg PO BID 11/09/21 01/05/22 History Ketoconazole 2% Shampoo [Nizoral] 1 applic TOPICAL DIRECTED PRN 11/09/21 0 01/05/22 History Ticagrelor [Brilinta] 90 mg PO BID 11/09/21 01/05/22 History Acetaminophen Tab [Tylenol] 650 mg PO Q6H PRN 12/18/21 01/05/22 History Ipratropium-Albuterol Nebulize 3 ml INHALATION RT-Q8H 12/18/21 01/05/22 History [Duoneb 0.5 mg-3 mg/3 ml Soln] levETIRAcetam [Keppra] 1,000 mg PO BID 12/18/21 01/05/22 History Aspirin 81 mg PO DAILY 12/21/21 01/05/22 Rx Collagenase [Santyl Ointment] 1 applic TOPICAL DAILY 12/21/21 01/05/22 Rx hydrALAZINE HCL [Apresoline] 100 mg PO TID #0 12/21/21 01/05/22 Rx Atorvastatin [Lipitor] 40 mg PO HS tab 12/25/21 01/05/22 Rx Insulin Detemir (Levemir) [Levemir] 18 unit SQ HS each 12/25/21 01/05/22 Rx Ipratropium-Albuterol Nebulize 3 ml INHALATION RT-Q2H PRN each 12/25/21 01/05/22 Rx [Duoneb 0.5 mg-3 mg/3 ml Soln] Bumetanide [BUMEX] 2 mg PO DAILY 01/05/22 01/05/22 History Insulin Lispro [humaLOG Kwikpen] 10 units SQ AC-TID 01/05/22 01/05/22 History Tamsulosin [Flomax] 0.4 mg PO DAILY 01/05/22 01/05/22 History rOPINIRole HCL [Requip] 0.5 mg PO TID 01/05/22 01/05/22 History Allergies Allergy/AdvReac Type Severity Reaction Status Date / Time ampicillin [From Unasyn] Allergy Rash/Hives Verified 01/05/22 20:37 sulbactam [From Unasyn] Allergy Rash/Hives Verified 01/05/22 20:37 Physical Exam Vitals: Vital Signs Temp Pulse Pulse Resp BP BP Pulse Ox 01/06/22 14:00 98.5 F 96 16 115/58 96 01/06/22 10:15 95 22 136/67 100 01/06/22 10:11 96 01/06/22 10:05 96 25 H 151/66 100 01/06/22 09:58 92 01/06/22 09:45 102 H 26 H 172/73 96 01/06/22 08:00 97.9 F 92 16 167/69 93 L 01/06/22 01:00 99.4 F 94 17 139/67 98 01/06/22 00:50 98.3 F 98 22 130/79 97 01/05/22 22:59 99 22 131/71 96 01/05/22 20:33 98.2 F 105 H 20 149/65 96 Intake and Output 01/06/22 01/06/22 01/06/22 06:59 14:59 22:59 Output Total 600 Balance -600 Output: Urine 600 Other: Weight 94.347 kg Results CBC & Chem 7: 01/06/22 07:53 01/06/22 07:53 Labs: Abnormal Lab Results - Last 24 Hours (Table) 01/05/22 01/05/22 01/05/22 Range/Units 21:37 21:37 21:37 RBC 3.04 L (4.30-5.90) m/uL Hgb 8.2 L (13.0-17.5) gm/dL Hct 28.8 L (39.0-53.0) % MCHC 28.6 L (31.0-37.0) g/dL RDW (11.5-15.5) % APTT 34.8 H (22.0-30.0) sec Potassium 5.8 H (3.5-5.1) mmol/L Chloride (98-107) mmol/L BUN 43 H (9-20) mg/dL Creatinine 1.90 H (0.66-1.25) mg/dL Glucose 253 H (74-99) mg/dL POC Glucose (mg/dL) (75-99) mg/dL Calcium 8.1 L (8.4-10.2) mg/dL Albumin 3.4 L (3.5-5.0) g/dL 01/06/22 01/06/22 01/06/22 Range/Units 06:53 07:53 07:53 RBC 2.56 L (4.30-5.90) m/uL Hgb 7.1 L (13.0-17.5) gm/dL Hct 24.0 L (39.0-53.0) % MCHC 29.8 L (31.0-37.0) g/dL RDW 16.0 H (11.5-15.5) % APTT (22.0-30.0) sec Potassium 5.6 H (3.5-5.1) mmol/L Chloride 112 H (98-107) mmol/L BUN 44 H (9-20) mg/dL Creatinine 1.73 H (0.66-1.25) mg/dL Glucose 131 H (74-99) mg/dL POC Glucose (mg/dL) 144 H (75-99) mg/dL Calcium 7.5 L (8.4-10.2) mg/dL Albumin (3.5-5.0) g/dL 01/06/22 01/06/22 Range/Units 09:46 11:50 RBC (4.30-5.90) m/uL Hgb (13.0-17.5) gm/dL Hct (39.0-53.0) % MCHC (31.0-37.0) g/dL RDW (11.5-15.5) % APTT (22.0-30.0) sec Potassium (3.5-5.1) mmol/L Chloride (98-107) mmol/L BUN (9-20) mg/dL Creatinine (0.66-1.25) mg/dL Glucose (74-99) mg/dL POC Glucose (mg/dL) 139 H 159 H (75-99) mg/dL Calcium (8.4-10.2) mg/dL Albumin (3.5-5.0) g/dL Thrombosis Risk Factor Assmnt - Choose All That Apply Each Factor Represents 1 point: Obesity (BMI >25), Swollen legs (current) Each Risk Factor Represents 2 Points: Age 61-74 years Other congenital or acquired thrombophilia - If yes, enter type in comment: No Thrombosis Risk Factor Assessment Total Risk Factor Score: 4 Thrombosis Risk Factor Assessment Level: Moderate Risk
[2022-01-06] MEDS: oxyCODONE-APAP 10-325MG 1 EACH TAB PO PRN ×2 (17:25→20:52)
[2022-01-06] MEDS: GABAPENTIN 300 MG CAP PO SCH ×2 (17:30→20:37)
[2022-01-06] MEDS: IPRATROPIUM-ALBUTEROL 3 ML NEB INHALATION SCH ×3 (18:27→23:20)
[2022-01-06] MEDS: BUDESONIDE 1 MG/2 ML NEBU INHALATION SCH (19:04)
[2022-01-06 20:33] LABS: Glucose,Whole Blood 147 mg/dL (75-99)
[2022-01-06] MEDS: ATORVASTATIN 40 MG TAB PO SCH (20:37)
[2022-01-06] MEDS: INSULIN DETEMIR (LEVEMIR) 100 UNIT/ML SYR SQ SCH (20:38)
[2022-01-06] MEDS ORDERED: GABAPENTIN 300 MG CAP PO SCH (21:00)
[2022-01-07] MEDS: oxyCODONE-APAP 10-325MG 1 EACH TAB PO PRN ×5 (03:00→21:54)
[2022-01-07] MEDS: IPRATROPIUM-ALBUTEROL 3 ML NEB INHALATION SCH ×6 (03:24→23:51)
[2022-01-07 06:55] LABS: Glucose,Whole Blood 197 mg/dL (75-99)
[2022-01-07 07:11] LABS: African American GFR (CKD) 52 (>60 ml/min/1.73 sqM); Anion Gap 7 mmol/L; Blood Urea Nitrogen 42 mg/dL (9-20); Calcium 7.6 mg/dL (8.4-10.2); Carbon Dioxide 21 mmol/L (22-30); Chloride 112 mmol/L (98-107); Glucose 183 mg/dL (74-99); Non-African American GFR(CKD) 45 (>60 ml/min/1.73 sqM); Sodium 140 mmol/L (137-145)
[2022-01-07] MEDS: BUDESONIDE 1 MG/2 ML NEBU INHALATION SCH ×2 (07:21→21:09)
[2022-01-07] MEDS: diphenhydrAMINE 25 MG CAP PO PRN (07:43)
[2022-01-07] MEDS: INSULIN ASPART (NovoLOG) 100 UNIT/ML VIAL SQ SCH ×3 (07:44→17:25)
[2022-01-07] MEDS: TICAGRELOR 90 MG TAB PO SCH ×2 (07:44→23:46)
[2022-01-07] MEDS: GABAPENTIN 300 MG CAP PO SCH ×2 (07:44→21:53)
[2022-01-07] MEDS: ASPIRIN 81 MG PO SCH (07:44)
[2022-01-07] MEDS: TAMSULOSIN 0.4 MG CAP.ER.24H PO SCH (07:44)
[2022-01-07] MEDS: levETIRAcetam 500 MG TAB PO SCH ×2 (07:44→23:46)
[2022-01-07] MEDS: hydrALAZINE HCL 50 MG TAB PO SCH ×3 (07:44→21:53)
[2022-01-07] MEDS: BUMETANIDE 1 MG TAB PO SCH (07:44)
[2022-01-07] MEDS: carvediloL 12.5 MG TAB PO SCH ×2 (07:44→21:53)
[2022-01-07] MEDS: SODIUM CHLORIDE 0.9% 1,000 ML IV SCH ×3 (07:45→23:45)
[2022-01-07 07:54] LABS: Basophils % (A) 1 %; Eosinophils # (A) 0.3 k/uL (0-0.7); Eosinophils % (A) 5 %; HCT 23.5 % (39.0-53.0); Hypochromasia Marked; Lymphocytes % (A) 15 %; MCH 27.8 pg (25.0-35.0); MCHC 29.5 g/dL (31.0-37.0); Mean Platelet Volume 6.9; Monocytes # (A) 0.5 k/uL (0-1.0); Monocytes % (A) 7 %; Neutrophils # (A) 4.7 k/uL (1.3-7.7); Neutrophils % (A) 70 %; Platelet Count 255 k/uL (150-450); WBC 6.7 k/uL (3.8-10.6)
--- NOTE | 2022-01-07 09:48 | P.GSCN ---
History of Present Illness Consult date: 01/07/22 Reason for Consult: Right heel ulcer Requesting physician: Graham He History of present illness: This is 61-year-old male who presented to the emergency department brought in by his daughters for concerns for respiratory distress and weakness. Patient was just recently discharged from extended care facility and the daughters thought that he appeared to weak and unstable so brought him into the emergency depart ment for further evaluation. Patient was admitted to the hospital much of the month of December was discharged on 11/30/2021 and readmitted for shortness of breath. He is known to vascular surgery from his last admission also has a prior left [id number] amputation done approximately 6 months ago at outside facility. He has a right diabetic heel ulcer that had been previously debrided by Dr. Montalvo on 11/13/2021. Patient has been following with [facility] wound care and states he had debridement and wound care there last week. He's been afebrile, he denies any shortness of breath, chest pain, fevers or chills. Patient underwent arterial duplex of the right lower extremity on 11/20/2021 sh owing mild peripheral arterial disease. CLAUDY 1.0, TBI 0.5 MRI of the right foot on 11/10/2021 showed no evidence of osteomyelitis. Review of Systems A 14 point review systems was completed all pertinent positives and negatives as stated in the HPI. 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), MRSA, VRE Year Discovered:: 11/30/21 VRE; 11/11/21-MRSA MDRO Source:: Blood-VRE; Right heel-MRSA & MDRO Additional Past Surgical History / Comment(s): BKA right leg Past Anesthesia/Blood Transfusion Reactions: No Reported Reaction Past Psychological History: No Psychological Hx Reported Smoking Status: Current every day smoker Past Alcohol Use History: None Reported Past Drug Use History: None Reported Medications and Allergies Home Medications Medication Instructions Recorded Confirmed Type Carvedilol [Coreg] 12.5 mg PO BID 11/09/21 01/05/22 History Ketoconazole 2% Shampoo [Nizoral] 1 applic TOPICAL DIRECTED PRN 11/09/21 01/05/22 History Ticagrelor [Brilinta] 90 mg PO BID 11/09/21 01/05/22 History Acetaminophen Tab [Tylenol] 650 mg PO Q6H PRN 12/18/21 01/05/22 History Ipratropium-Albuterol Nebulize 3 ml INHALATION RT-Q8H 12/18/21 01/05/22 History [Duoneb 0.5 mg-3 mg/3 ml Soln] levETIRAcetam [Keppra] 1,000 mg PO BID 12/18/21 01/05/22 History Aspirin 81 mg PO DAILY 12/21/21 01/05/22 Rx Collagenase [Santyl Ointment] 1 applic TOPICAL DAILY 12/21/21 01/05/22 Rx hydrALAZINE HCL [Apresoline] 100 mg PO TID #0 12/21/21 01/05/22 Rx Atorvastatin [Lipitor] 40 mg PO HS tab 12/25/21 01/05/22 Rx Insulin Detemir (Levemir) [Levemir] 18 unit SQ HS each 12/25/21 01/05/22 Rx Ipratropium-Albuterol Nebulize 3 ml INHALATION RT-Q2H PRN each 12/25/21 01/05/22 Rx [Duoneb 0.5 mg-3 mg/3 ml Soln] Bumetanide [BUMEX] 2 mg PO DAILY 01/05/22 01/05/22 History Insulin Lispro [humaLOG Kwikpen] 10 units SQ AC-TID 01/05/22 01/05/22 History Tamsulosin [Flomax] 0.4 mg PO DAILY 01/05/22 01/05/22 History rOPINIRole HCL [Requip] 0.5 mg PO TID 01/05/22 01/05/22 History Allergies Allergy/AdvReac Type Severity Reaction Status Date / Time ampicillin [From Unasyn] Allergy Rash/Hives Verified 01/05/22 20:37 sulbactam [From Unasyn] Allergy Rash/Hives Verified 01/05/22 20:37 Surgical - Exam Vital Signs Temp Pulse Resp BP Pulse Ox 98.2 F 105 H 20 149/65 96 01/05/22 20:33 01/05/22 20:33 01/05/22 20:33 01/05/22 20:33 01/05/22 20:33 General appearance: The patient is alert, oriented, appears in no acute dis tress. HET: Head is normocephalic and atraumatic. Pupils are equal and reactive. Neck: Supple without lymphadenopathy. Trachea midline. No audible carotid bruit. Heart: S1 S2. Regular rate and rhythm. Lungs: Clear to auscultation bilaterally, diminshed in bases. Abdomen: Soft, nontender, nondistended. Extremities: Generalized rash, scaling skin all over body. Left [id number] amputation stump well-healed. Diabetic ulcer to the right heel with nonviable tissue on the border, muscle involvement. No drainage or odor noted. Neurological: Alert and oriented. Results - Labs 01/07/22 06:39 01/07/22 06:39 Abnormal Lab Results - Last 24 Hours (Table) 01/06/22 01/06/22 01/06/22 Range/Units 09:46 11:50 16:35 RBC (4.30-5.90) m/uL Hgb (13.0-17.5) gm/dL Hct (39.0-53.0) % MCHC (31.0-37.0) g/dL RDW (11.5-15.5) % Chloride (98-107) mmol/L Carbon Dioxide (22-30) mmol/L BUN (9-20) mg/dL Creatinine (0.66-1.25) mg/dL Glucose (74-99) mg/dL POC Glucose (mg/dL) 139 H 159 H >600 H (75-99) mg/dL Calcium (8.4-10.2) mg/dL 01/06/22 01/06/22 01/07/22 Range/Units 16:37 20:32 06:39 RBC 2.50 L (4.30-5.90) m/uL Hgb 7.0 L (13.0-17.5) gm/dL Hct 23.5 L (39.0-53.0) % MCHC 29.5 L (31.0-37.0) g/dL RDW 16.0 H (11.5-15.5) % Chloride (98-107) mmol/L Carbon Dioxide (22-30) mmol/L BUN (9-20) mg/dL Creatinine (0.66-1.25) mg/dL Glucose (74-99) mg/dL POC Glucose (mg/dL) 532 H 147 H (75-99) mg/dL Calcium (8.4-10.2) mg/dL 01/07/22 01/07/22 Range/Units 06:39 06:54 RBC (4.30-5.90) m/uL Hgb (13.0-17.5) gm/dL Hct (39.0-53.0) % MCHC (31.0-37.0) g/dL RDW (11.5-15.5) % Chloride 112 H (98-107) mmol/L Carbon Dioxide 21 L (22-30) mmol/L BUN 42 H (9-20) mg/dL Creatinine 1.62 H (0.66-1.25) mg/dL Glucose 183 H (74-99) mg/dL POC Glucose (mg/dL) 197 H (75-99) mg/dL Calcium 7.6 L (8.4-10.2) mg/dL Diabetes panel 01/07/22 Range/Units 06:39 Sodium 140 (137-145) mmol/L Potassium 5.0 (3.5-5.1) mmol/L Chloride 112 H (98-107) mmol/L Carbon Dioxide 21 L (22-30) mmol/L BUN 42 H (9-20) mg/dL Creatinine 1.62 H (0.66-1.25) mg/dL Glucose 183 H (74-99) mg/dL Calcium 7.6 L (8.4-10.2) mg/dL Calcium panel 01/07/22 Range/Units 06:39 Calcium 7.6 L (8.4-10.2) mg/dL Pituitary panel 01/07/22 Range/Units 06:39 Sodium 140 (137-145) mmol/L Potassium 5.0 (3.5-5.1) mmol/L Chloride 112 H (98-107) mmol/L Carbon Dioxide 21 L (22-30) mmol/L BUN 42 H (9-20) mg/dL Creatinine 1.62 H (0.66-1.25) mg/dL Glucose 183 H (74-99) mg/dL Calcium 7.6 L (8.4-10.2) mg/dL Adrenal panel 01/07/22 Range/Units 06:39 Sodium 140 (137-145) mmol/L Potassium 5.0 (3.5-5.1) mmol/L Chloride 112 H (98-107) mmol/L Carbon Dioxide 21 L (22-30) mmol/L BUN 42 H (9-20) mg/dL Creatinine 1.62 H (0.66-1.25) mg/dL Glucose 183 H (74-99) mg/dL Calcium 7.6 L (8.4-10.2) mg/dL Assessment and Plan Assessment: 1. Right chronic diabetic heel ulcer 2. Acute hypoxic respiratory failure, COPD exacerbation 3. Diabetes mellitus 4. Subtotal occlusion right ICA and severe stenosis left ICA Plan: 1. Consult to wound care services, following as outpatient for local wound care 2. Medi boot to right foot 3. Outpatient follow-up with Dr. Thibodeaux for bilateral ICA stenosis 4. Further recommendations forthcoming Thank you for this consultation, we will continue to follow. The impression and plan of care has been dictated as directed. I performed a history and examination of this patient, discussed the same with the dictator. I agree with the dictator's note ,documented as a scribe. Any additional findings or plans will be noted.
[2022-01-07 11:35] LABS: Glucose,Whole Blood 102 mg/dL (75-99)
[2022-01-07 12:31] VITALS: BMI 28.2
[2022-01-07 16:21] LABS: Glucose,Whole Blood 180 mg/dL (75-99)
[2022-01-07 20:09] LABS: Glucose,Whole Blood 173 mg/dL (75-99)
[2022-01-07] MEDS: ATORVASTATIN 40 MG TAB PO SCH (21:53)
--- NOTE | 2022-01-07 22:08 | P.PN ---
Progress Note - Text Progress Note Date: 01/07/22 Chief Complaint: Hypoxic This is a 61-year-old patient, follows with Dr. Smalls Chronic stable medical conditions include diabetes, hypertension, left below- knee amputation. admitted to the hospital on 11/09/2021 with a right foot nonhealing ulcer. Had been a smoker up to recently. Wound on right heel, wound cultures were positive for Acinetobacter and MRSA. MRI was negative for osteomyelitis. Seen by pain services for chronic pain. Neuropathic pain. Admitted with acute COPD exacerbation, pneumonia, right heel wound. IV Unasyn daptomycin continued. Bronchodilators. Steroids. For neuropathic pain , Neurontin was increased. seen by pain services. Patient was discharged to rehab Was in hospital and not a part of December. Discharged on December 25. Wound on the right heel. Seen by vascular team Dr. Marie. For outpatient follow-up. Was discharged to rehab. She was discharged from rehab to home yesterday. Patient felt he was discharged prematurely. Was discharged without oxygen and no pain medications. He went to live with his daughter. They were not told how to use oxygen. Apparently fell down and bumped his head. No loss of consciousness. As the daughter brought the patient back to the ER. Was placed in trauma to because of his respiratory status. This morning patient feeling much better. Most to go home. Wants pain medications for his foot. January 07: Patient was seen by vascular. Patient to follow-up outpatient. Discussed with ID. Not for antibiotics at the present time. Wound care to continue. The daughter wants the patient to go to rehab. inside sales manager is involved. Patient eating well. Sitting up in a chair. Pain well controlled. Active Medications Hydrocodone Bitart/Acetaminophen (Hydrocodone/Apap 7.5-325mg 1 Each Tab) 1 each PO Q6HR PRN PRN Reason: Pain Albuterol/Ipratropium (Ipratropium-Albuterol 3 Ml Neb) 3 ml INHALATION RT-Q4H [facility] Last Admin: 01/07/22 21:10 Dose: 3 ml Aspirin (Aspirin 81 Mg) 81 mg PO DAILY [facility] Last Admin: 01/07/22 07:44 Dose: 81 mg Atorvastatin Calcium (Atorvastatin 40 Mg Tab) 40 mg PO HS [facility] Last Admin: 01/07/22 21:53 Dose: 40 mg Budesonide (Budesonide 1 Mg/2 Ml Nebu) 1 mg INHALATION RT-BID [facility] Last Admin: 01/07/22 21:09 Dose: 1 mg Bumetanide (Bumetanide 1 Mg Tab) 2 mg PO DAILY [facility] Last Admin: 01/07/22 07:44 Dose: 2 mg Carvedilol (Carvedilol 12.5 Mg Tab) 12.5 mg PO BID [facility] Last Admin: 01/07/22 21:53 Dose: 12.5 mg Diphenhydramine HCl (Diphenhydramine 25 Mg Cap) 25 mg PO QID PRN PRN Reason: Allergic Reaction Last Admin: 01/07/22 07:43 Dose: 25 mg Gabapentin (Gabapentin 300 Mg Cap) 300 mg PO BID [facility] Last Admin: 01/07/22 21:53 Dose: 300 mg Hydralazine HCl (Hydralazine Hcl 50 Mg Tab) 100 mg PO TID [facility] Last Admin: 01/07/22 21:53 Dose: 100 mg Sodium Chloride (Saline 0.9%) 1,000 mls @ 130 mls/hr IV .Q7H42M [facility] Last Admin: 01/07/22 13:19 Dose: Not Given Insulin Aspart (Insulin Aspart (Novolog) 100 Unit/Ml Vial) 10 unit SQ AC-TID [facility] Last Admin: 01/07/22 17:25 Dose: 10 unit Insulin Detemir (Insulin Detemir (Levemir) 100 Unit/Ml Syr) 18 unit SQ HS [facility] Last Admin: 01/06/22 20:38 Dose: 18 unit Levetiracetam (Levetiracetam 500 Mg Tab) 1,000 mg PO BID [facility] Last Admin: 01/07/22 07:44 Dose: 1,000 mg Naloxone HCl (Naloxone 0.4 Mg/Ml 1 Ml Vial) 0.2 mg IV Q2M PRN PRN Reason: Opioid Reversal Ropinirole HCl (Ropinirole Hcl 0.25 Mg Tab) 0.5 mg PO TID [facility] Last Admin: 01/07/22 21:53 Dose: 0.5 mg Tamsulosin HCl (Tamsulosin 0.4 Mg Cap.Er.24h) 0.4 mg PO DAILY [facility] Last Admin: 01/07/22 07:44 Dose: 0.4 mg Ticagrelor (Ticagrelor 90 Mg Tab) 90 mg PO BID [facility] Last Admin: 01/07/22 07:44 Dose: 90 mg Past medical history to include: Stroke, diabetes, hypertension, left below-knee amputation, right heel wound, PAD Social history: Discharged to home yesterday from of [place], smoked 2 packs a day for 45 years up October 2021. No alcohol. . 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 Conjunctiva normal. HEENT: External appearance of nose and ears normal, oral cavity grossly normal. NECK: JVD not raised; masses not palpable. HEART: First and second heart sounds are normal; no edema. LUNGS: Respiratory rate increased; decreased breath sounds ABDOMEN: Soft, nontender, liver spleen not palpable, no masses palpable. PSYCH: Alert and oriented x3; mood and affect anxious DERMATOLOGICAL: Maculopapular rash. Diffuse MUSCULOSKELETAL:No Clubbing/cyanosis;muscles-grossly intact. EXTREMITIES: Right heel necrotic wound. Dressing right lower extremity. Dry skin. INVESTIGATIONS, reviewed in the clinical context: January 07: White count 6.7 hemoglobin 7 patient is to 55 potassium 5 BUN 42 creatinine 1.6 to January 06: White count 7.7 hemoglobin 7.1 platelets 301 potassium 5.6. 44 creatinine 1.73 EKG tracing personally reviewed by me-normal sensory. Nonspecific ST-T wave changes. Chest x-ray film personally reviewed by me: Possibly chronic changes Recent admission: Carotid Doppler:Subtotal occlusion right ICA and severe stenosis left ICA December 20: Hemoglobin 7 December 19: Potassium 5.1 BUN 37 creatinine 1.81 2-D echocardiogram: EF 60 - 65% Doppler ultrasound December 10 right lower extremity: Negative for DVT Assessment and plan: -Acute hypoxic respiratory failure from COPD exacerbation Patient is unable to use his oxygen at home. Circumstances unclear. Supplemental oxygen. -Chronic encephalomalacia involving the right frontal lobe. -Subtotal occlusion right ICA and severe stenosis left ICA Follow with Dr. Marie outpatient - Acute COPD exacerbation in a previous smoker: Coronary improving DuoNeb 4 times a day. Pulmicort nebulizer twice a day. -Right heel diabetic wound negative for osteomyelitis per recent MRI.: Previous Culture positive for Acinetobacter, MRSA No need for further antibiotics per ID.. Outpatient follow-up with vascular. -chronic hypoxic respiratory failure from COPD On home oxygen -Normocytic anemia/iron deficiency anemia -Chronic kidney disease stage III likely diabetic nephropathy and hypertensive nephrosclerosis Creatinine 1.68 on November 09 -Diabetes mellitus type 2, chronically on insulin: Controlled with hypoglycemia Levemir 18 units. Decrease to 5 units with meals Humalog. Sliding scale. -Essential hypertension Coreg 12.5 mg twice a day hydralazine 100 mg 2 times a day -Diabetic peripheral neuropathy: Neurontin 300 mg twice a day -Restless leg syndrome: Requip 0.5 mg by mouth 3 times a day -Left below-knee amputation -PAD -Chronic pain. Patient seen by pain management team last admission. Decreased [place] 7.5 every 6 when necessary. -Full code Continue current medications. No antibiotics per ID. We will await input from social media executive regarding rehab versus home.
--- NOTE | 2022-01-07 22:43 | P.CONS ---
History of Present Illness - Reason for Consult Consult date: 01/07/22 Right heel ulcer Requesting physician: Graham He - Chief Complaint Syncopal episode x 1 day - History of Present Illness Patient is a 61-year male past medical history began for diabetes mellitus right heel diabetic foot infection with underlying osteomyelitis for which the patient has completed his 6 weeks of antibiotic therapy, patient with recent multiple admission to this facility, patient was brought into the ER 2 nights ago for evaluation of weakness and shortness of breath and a syncopal episode patient apparently was discharged recently from a local [facility] the day before presentation back to the hospital and apparently the patient was di scharged home without any oxygen and without any pain medication daughter mention the patient was having significant difficulty at home breathing without his oxygen and apparently the patient passed out while trying to use the oxygen for the symptom the patient was brought into the ER on arrival to the ER the patient was afebrile and no fever have been recorded subsequently patient did have a normal white count with no left shift. If it was mildly elevated liver enzymes are normal patient did have a chest x-ray small right effusion coarse lung markings no failure patient has been admitted to hospital infectious disease was consulted for his right heel wound with need for debridement or anti biotic therapy patient mention his right heel wound is healing well and apparently recently has been debrided at the [facility] wound care [place] denies any worsening pain to the right heel area or any worsening drainage Review of Systems Positive point has been mentioned in the HPI rest of the systems are negative 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), MRSA, VRE Year Discovered:: 11/30/21 VRE; 11/11/21-MRSA MDRO Source:: Blood-VRE; Right heel-MRSA & MDRO Additional Past Surgical History / Comment(s): BKA right leg Past Anesthesia/Blood Transfusion Reactions: No Reported Reaction Past Psychological History: No Psychological Hx Reported Smoking Status: Current every day smoker Past Alcohol Use History: None Reported Past Drug Use History: None Reported Medications and Allergies Home Medications Medication Instructions Recorded Confirmed Type Ketoconazole 2% Shampoo [Nizoral] 1 applic TOPICAL DIRECTED PRN 11/09/21 01/05/22 History Ticagrelor [Brilinta] 90 mg PO BID 11/09/21 01/05/22 History carvediloL [Coreg] 12.5 mg PO BID 11/09/21 01/05/22 History Ipratropium-Albuterol Nebulize 3 ml INHALATION RT-Q8H 12/18/21 01/05/22 History [Duoneb 0.5 mg-3 mg/3 ml Soln] levETIRAcetam [Keppra] 1,000 mg PO BID 12/18/21 01/05/22 History Aspirin 81 mg PO DAILY 12/21/21 01/05/22 Rx Collagenase [Santyl Ointment] 1 applic TOPICAL DAILY 12/21/21 01/05/22 Rx hydrALAZINE HCL [Apresoline] 100 mg PO TID #0 12/21/21 01/05/22 Rx Atorvastatin [Lipitor] 40 mg PO HS tab 12/25/21 01/05/22 Rx Bumetanide [BUMEX] 2 mg PO DAILY 01/05/22 01/05/22 History Tamsulosin [Flomax] 0.4 mg PO DAILY 01/05/22 01/05/22 History rOPINIRole HCL [Requip] 0.5 mg PO TID 01/05/22 01/05/22 History Insulin Detemir (Levemir) [Levemir] 22 unit SQ HS #0 each 01/08/22 01/05/22 Rx Insulin Lispro [humaLOG Kwikpen] 8 units SQ AC-TID #0 01/08/22 01/05/22 Rx Gabapentin [Neurontin] 300 mg PO HS #3 cap 01/17/22 Rx HYDROcodone/APAP 7.5-325MG [[place] 1 each PO Q6HR PRN #12 tab 01/17/22 Rx 7.5-325] risperiDONE [RisperDAL] 0.25 mg PO DAILY #3 tab 01/17/22 Rx risperiDONE [RisperDAL] 1 mg PO HS #3 tab 01/17/22 Rx Allergies Allergy/AdvReac Type Severity Reaction Status Date / Time ampicillin [From Unasyn] Allergy Rash/Hives Verified 01/05/22 20:37 sulbactam [From Unasyn] Allergy Rash/Hives Verified 01/05/22 20:37 Physical Exam Vitals: Vital Signs Temp Pulse Pulse Resp BP Pulse Ox 01/07/22 11:01 78 01/07/22 10:51 78 01/07/22 07:49 98.6 F 86 16 141/69 92 L 01/07/22 07:35 80 01/07/22 07:21 80 01/07/22 03:33 84 01/07/22 03:24 83 01/07/22 02:00 98.3 F 83 18 128/64 92 L 01/06/22 23:28 77 01/06/22 23:21 76 01/06/22 19:37 99.1 F 87 16 140/64 94 L 01/06/22 19:17 90 01/06/22 19:04 82 01/06/22 15:26 88 01/06/22 15:15 88 01/06/22 14:00 98.5 F 96 16 115/58 96 Intake and Output 01/06/22 01/07/22 01/07/22 22:59 06:59 14:59 Intake Total 400 1080 Output Total 950 550 Balance -550 530 Intake: IV 160 0.9 NACL 160 Oral 240 1080 Output: Urine 950 550 Other: # Bowel Movements 1 Weight 94.347 kg GENERAL DESCRIPTION: Middle-aged male lying in bed, no distress. No tachypnea or accessory muscle of respiration use. HEENT: Shows Pallor , no scleral icterus. Oral mucous membrane is dry. No pharyngeal erythema or thrush NECK: Trachea central, no thyromegaly. LUNGS: Unlabored breathing. Clear to auscultation anteriorly. No wheeze or crackle. HEART: S1, S2, regular rate and rhythm. No loud murmur ABDOMEN: Soft, no tenderness , guarding or rigidity, no organomegaly EXTREMITIES: Right heel wound with no slough tissue some necrotic area no foul- smelling drainage SKIN: Erythematous rash, no masses palpable. NEUROLOGICAL: The patient is awake, alert, oriented x3, mood and affect normal. Results CBC & Chem 7: 01/17/22 04:36 01/18/22 01:27 Labs: Abnormal Lab Results - Last 24 Hours (Table) 01/06/22 01/06/22 01/06/22 Range/Units 16:35 16:37 20:32 RBC (4.30-5.90) m/uL Hgb (13.0-17.5) gm/dL Hct (39.0-53.0) % MCHC (31.0-37.0) g/dL RDW (11.5-15.5) % Chloride (98-107) mmol/L Carbon Dioxide (22-30) mmol/L BUN (9-20) mg/dL Creatinine (0.66-1.25) mg/dL Glucose (74-99) mg/dL POC Glucose (mg/dL) >600 H 532 H 147 H (75-99) mg/dL Calcium (8.4-10.2) mg/dL 01/07/22 01/07/22 01/07/22 Range/Units 06:39 06:39 06:54 RBC 2.50 L (4.30-5.90) m/uL Hgb 7.0 L (13.0-17.5) gm/dL Hct 23.5 L (39.0-53.0) % MCHC 29.5 L (31.0-37.0) g/dL RDW 16.0 H (11.5-15.5) % Chloride 112 H (98-107) mmol/L Carbon Dioxide 21 L (22-30) mmol/L BUN 42 H (9-20) mg/dL Creatinine 1.62 H (0.66-1.25) mg/dL Glucose 183 H (74-99) mg/dL POC Glucose (mg/dL) 197 H (75-99) mg/dL Calcium 7.6 L (8.4-10.2) mg/dL 01/07/22 Range/Units 11:34 RBC (4.30-5.90) m/uL Hgb (13.0-17.5) gm/dL Hct (39.0-53.0) % MCHC (31.0-37.0) g/dL RDW (11.5-15.5) % Chloride (98-107) mmol/L Carbon Dioxide (22-30) mmol/L BUN (9-20) mg/dL Creatinine (0.66-1.25) mg/dL Glucose (74-99) mg/dL POC Glucose (mg/dL) 102 H (75-99) mg/dL Calcium (8.4-10.2) mg/dL Assessment and Plan (1) Decubitus ulcer of foot Current Visit: No Status: Acute Code(s): L89.899 - PRESSURE ULCER OF OTHER SITE, UNSPECIFIED STAGE SNOMED Code(s): 7366794239 Plan: 1patient with a chronic nonhealing wound to the right heel area and this patient with underlying osteomyelitis secondary to Acinetobacter and MRSA for the patient completed more than 6 weeks of antibiotic therapy was recently discontinued patient became to the hospital with a possible syncopal episode and lack of home oxygen, patient is Noted any fever white count is normal and no evidence of any significant cellulitis to the right heel wound area recommend local wound care. 2patient will benefit from debridement of the right heel wound. 3local wound care with the Santyl for moist dressing daily and keep the area of pressure. 4no need for systemic antibiotic therapy at this point. We will follow on clinical condition and cultures to further adjust medication if needed Thank you for this consultation will follow this patient along with you Time with Patient: Greater than 30
[2022-01-07] MEDS: INSULIN DETEMIR (LEVEMIR) 100 UNIT/ML SYR SQ SCH (23:45)
[2022-01-08] MEDS: IPRATROPIUM-ALBUTEROL 3 ML NEB INHALATION SCH ×7 (03:55→22:59)
[2022-01-08] MEDS: HYDROcodone/APAP 7.5-325MG 1 EACH TAB PO PRN ×3 (04:16→17:27)
[2022-01-08] MEDS: SODIUM CHLORIDE 0.9% 1,000 ML IV SCH ×2 (05:53→11:35)
[2022-01-08 06:49] LABS: Glucose,Whole Blood 169 mg/dL (75-99)
[2022-01-08] MEDS: diphenhydrAMINE 25 MG CAP PO PRN ×3 (07:55→22:44)
[2022-01-08] MEDS: hydrALAZINE HCL 50 MG TAB PO SCH ×3 (07:55→22:12)
[2022-01-08] MEDS: INSULIN ASPART (NovoLOG) 100 UNIT/ML VIAL SQ SCH ×3 (07:55→18:14)
[2022-01-08] MEDS: carvediloL 12.5 MG TAB PO SCH ×2 (07:56→22:12)
[2022-01-08] MEDS: TAMSULOSIN 0.4 MG CAP.ER.24H PO SCH (07:56)
[2022-01-08] MEDS: GABAPENTIN 300 MG CAP PO SCH ×2 (07:56→22:12)
[2022-01-08] MEDS: ASPIRIN 81 MG PO SCH (07:56)
[2022-01-08] MEDS: levETIRAcetam 500 MG TAB PO SCH ×2 (07:57→22:12)
[2022-01-08] MEDS: BUMETANIDE 1 MG TAB PO SCH (07:58)
[2022-01-08] MEDS: TICAGRELOR 90 MG TAB PO SCH (07:58)
[2022-01-08] MEDS: BUDESONIDE 1 MG/2 ML NEBU INHALATION SCH ×3 (08:32→21:13)
--- NOTE | 2022-01-08 09:50 | P.CONS ---
History of Present Illness - Reason for Consult Consult date: 01/08/22 wound care - History of Present Illness This is a 61-year-old patient known to the wound care center. He was seen last week by Dr. Rios. Original cause of wound was Pressure Injury. The date acquired was: 09/04/2021. The wound is currently classified as a Grade 2 wound with etiology of Diabetic Wound/Ulcer of the Lower Extremity and is located on the Right Calcaneus. The wound measures 3.9cm length x 3.8cm width x 0.5cm depth; 11.64cm^2 area and 5.82cm^3 volume. The wound is limited to skin breakdown. There is no tunneling or undermining noted. There is a small amount of serosanguineous drainage noted. The wound margin is thickened. There is small (1-33%) red granulation within the wound bed. There is a large (67-100%) amount of necrotic tissue within the wound bed including Eschar and Adherent Slough. The periwound skin appearance exhibited: Scarring, Dry/Scaly. The periwound skin appearance did not exhibit: Maceration. Original cause of wound was Gradually Appeared. The date acquired was: 11/02/2021. The wound is currently classified as a Grade 2 wound with etiology of Diabetic Wound/Ulcer of the Lower Extremity and is located on the Right,Anterior Lower Leg. The wound measures 1.6cm length x 0.7cm width x 0.2cm depth; 0.88cm^2 area and 0.176cm^3 volume. The wound is limited to skin breakdown. There is no tunneling or undermining noted. There is a small amount of serosanguineous drainage noted. The wound margin is indistinct and nonvisible. There is large (67-100%) red, pink granulation within the wound bed. There is a small (1-33%) amount of necrotic tissue within the wound bed including Adherent Slough. The periwound skin appearance exhibited: Scarring, Dry/Scaly. The periwound skin appearance did not exhibit: Maceration. The periwound has tenderness on palpation. Review Of Systems: Constitutional: No fever, no chills, no night sweats. No weight change. No weakness, fatigue or lethargy. No daytime sleepiness. Integumentary:reports wounds, no lesions. No rash or pruritus. No unusual bruising. No change in hair or nails. Physical exam: General Appearance: Alert, cooperative, no distress, appears stated age. Skin: See HPI all other Skin color, texture, tugor normal, no rashes or lesions. Neurologic: Alert oriented x3 Assessment: 1.Atherosclerosis of chilkat arteries of right leg with ulceration of heel and midfoot 2. Diabetes mellitus due to underlying condition with foot ulcer 3. Non-pressure chronic ulcer of other part of right foot with fat layer exposed Plan: 1. Apply Santyl to the site, saline moistened gauze, dry gauze, rolled secured paper tape. Change daily. Patient will return to the wound care center post discharge. Thank you for the consultation any questions with contact the wound care center DNP note has been reviewed and discussed with Dr. Rios and the impression and plan of care has been directed as dictated. 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), MRSA, VRE Year Discovered:: 11/30/21 VRE; 11/11/21-MRSA MDRO Source:: Blood-VRE; Right heel-MRSA & MDRO Additional Past Surgical History / Comment(s): BKA right leg Past Anesthesia/Blood Transfusion Reactions: No Reported Reaction Past Psychological History: No Psychological Hx Reported Smoking Status: Current every day smoker Past Alcohol Use History: None Reported Past Drug Use History: None Reported Medications and Allergies Home Medications Medication Instructions Recorded Confirmed Type Carvedilol [Coreg] 12.5 mg PO BID 11/09/21 01/05/22 History Ketoconazole 2% Shampoo [Nizoral] 1 applic TOPICAL DIRECTED PRN 11/09/21 01/05/22 History Ticagrelor [Brilinta] 90 mg PO BID 11/09/21 01/05/22 History Acetaminophen Tab [Tylenol] 650 mg PO Q6H PRN 12/18/21 01/05/22 History Ipratropium-Albuterol Nebulize 3 ml INHALATION RT-Q8H 12/18/21 01/05/22 History [Duoneb 0.5 mg-3 mg/3 ml Soln] levETIRAcetam [Keppra] 1,000 mg PO BID 12/18/21 01/05/22 History Aspirin 81 mg PO DAILY 12/21/21 01/05/22 Rx Collagenase [Santyl Ointment] 1 applic TOPICAL DAILY 12/21/21 01/05/22 Rx hydrALAZINE HCL [Apresoline] 100 mg PO TID #0 12/21/21 01/05/22 Rx Atorvastatin [Lipitor] 40 mg PO HS tab 12/25/21 01/05/22 Rx Insulin Detemir (Levemir) [Levemir] 18 unit SQ HS each 12/25/21 01/05/22 Rx Ipratropium-Albuterol Nebulize 3 ml INHALATION RT-Q2H PRN each 12/25/21 01/05/22 Rx [Duoneb 0.5 mg-3 mg/3 ml Soln] Bumetanide [BUMEX] 2 mg PO DAILY 01/05/22 01/05/22 History Insulin Lispro [humaLOG Kwikpen] 10 units SQ AC-TID 01/05/22 01/05/22 History Tamsulosin [Flomax] 0.4 mg PO DAILY 01/05/22 01/05/22 History rOPINIRole HCL [Requip] 0.5 mg PO TID 01/05/22 01/05/22 History Allergies Allergy/AdvReac Type Severity Reaction Status Date / Time ampicillin [From Unasyn] Allergy Rash/Hives Verified 01/05/22 20:37 sulbactam [From Unasyn] Allergy Rash/Hives Verified 01/05/22 20:37 Physical Exam Vitals: Vital Signs Temp Pulse Pulse Resp BP Pulse Ox 01/08/22 08:00 98.7 F 114 H 18 158/59 92 L 01/08/22 04:03 92 01/08/22 03:55 92 01/07/22 23:58 96 01/07/22 23:51 96 01/07/22 21:27 92 01/07/22 21:15 92 01/07/22 20:00 18 01/07/22 19:18 98.4 F 97 18 137/61 98 01/07/22 16:50 93 01/07/22 16:40 91 01/07/22 14:00 98.4 F 71 18 136/70 93 L 01/07/22 11:01 78 01/07/22 10:51 78 Intake and Output 01/07/22 01/08/22 01/08/22 22:59 06:59 14:59 Intake Total 2160 Output Total 500 1200 Balance 1660 -1200 Intake: Oral 2160 Output: Urine 500 1200 Other: # Bowel Movements 0 Results CBC & Chem 7: 01/07/22 06:39 01/07/22 06:39 Labs: Abnormal Lab Results - Last 24 Hours (Table) 01/07/22 01/07/22 01/07/22 Range/Units 11:34 16:16 20:06 POC Glucose (mg/dL) 102 H 180 H 173 H (75-99) mg/dL 01/08/22 Range/Units 06:48 POC Glucose (mg/dL) 169 H (75-99) mg/dL Assessment and Plan (1) Atherosclerosis of chilkat arteries of right leg with ulceration of heel and midfoot Current Visit: Yes Status: Acute Code(s): I70.234 - ATHSCL NIKOLSKI ART OF RIGHT LEG W ULCER OF HEEL AND MIDFOOT SNOMED Code(s): 298941748 (2) Diabetic foot ulcer Current Visit: No Status: Acute Code(s): E11.621 - TYPE 2 DIABETES MELLITUS WITH FOOT ULCER; L97.509 - NON-PRESSURE CHRONIC ULCER OTH PRT UNSP FOOT W UNSP SEVERITY SNOMED Code(s): 704834330 (3) Non-pressure chronic ulcer of right heel and midfoot with muscle involvement without evidence of necrosis Current Visit: No Status: Acute Code(s): L97.415 - NON-PRS CHR ULC OF R HEEL/MIDFT W MSL INVL W/O EVD OF NECR SNOMED Code(s): 958365587
--- NOTE | 2022-01-08 11:23 | P.PN ---
Subjective Progress Note Date: 01/08/22 Principal diagnosis: Nonhealing right diabetic heel ulcer Patient seen and examined sitting up in the recliner. Complaints of chronic pain. Wound care had seen patient today, had seen patient last week in the wound care clinic and patient underwent debridement with Dr. Rios. The patient is afebrile. No acute changes through the night. Objective - Vital Signs Vital signs: Vital Signs Temp 98.7 F 01/08/22 08:00 Pulse 114 H 01/08/22 08:00 Resp 18 01/08/22 08:00 BP 158/59 01/08/22 08:00 Pulse Ox 92 L 01/08/22 08:00 FiO2 Intake & Output 01/07/22 01/08/22 01/08/22 18:59 06:59 18:59 Intake Total 2160 Output Total 500 1200 Balance 1660 -1200 Weight 94.347 kg Intake: Oral 2160 Output: Urine 500 1200 Other: # Bowel Movements 0 - Exam General appearance: The patient is alert, oriented, appears in no acute distress. HET: Head is normocephalic and atraumatic. Pupils are equal and reactive. Neck: Supple without lymphadenopathy. Trachea midline. No audible carotid bruit. Heart: S1 S2. Regular rate and rhythm. Lungs: Clear to auscultation bilaterally, diminshed in bases. Abdomen: Soft, nontender, nondistended. Extremities: Generalized rash, scaling skin all over body. Left [id number] amputation stump well-healed. Diabetic ulcer to the right heel with nonviable tissue on the border, muscle involvement. No drainage or odor noted. Neurological: Alert and oriented. - Labs CBC & Chem 7: 01/07/22 06:39 01/07/22 06:39 Labs: Abnormal Lab Results - Last 24 Hours (Table) 01/07/22 01/07/22 01/07/22 Range/Units 11:34 16:16 20:06 POC Glucose (mg/dL) 102 H 180 H 173 H (75-99) mg/dL 01/08/22 Range/Units 06:48 POC Glucose (mg/dL) 169 H (75-99) mg/dL Assessment and Plan Assessment: 1. Right chronic diabetic heel ulcer 2. Acute hypoxic respiratory failure, COPD exacerbation 3. Diabetes mellitus 4. Subtotal occlusion right ICA and severe stenosis left ICA Plan: 1. Patient is scheduled for right heel surgical wound debridement tomorrow 2. Medi boot to right foot 3. Outpatient follow-up with Dr. Marie for bilateral ICA stenosis 4. Hold Brilinta 5. Continue with local wound care per recommendations from wound care center Thank you for this consultation, we will continue to follow. The impression and plan of care has been dictated as directed. Dr. Montalvo I performed a history and examination of this patient, discussed the same with the dictator. I agree with the dictator's note ,documented as a scribe. Any additional findings or plans will be noted.
[2022-01-08] MEDS: COLLAGENASE 250 UNIT/GM OINTMENT 30 GM TUBE TOPICAL SCH (11:35)
[2022-01-08 11:38] LABS: Glucose,Whole Blood 99 mg/dL (75-99)
[2022-01-08 16:33] LABS: Glucose,Whole Blood 352 mg/dL (75-99)
--- NOTE | 2022-01-08 18:03 | P.PN ---
Progress Note - Text Progress Note Date: 01/08/22 Chief Complaint: Hypoxic This is a 61-year-old patient, follows with Dr. Smalls Chronic stable medical conditions include diabetes, hypertension, left below- knee amputation. admitted to the hospital on 11/09/2021 with a right foot nonhealing ulcer. Had been a smoker up to recently. Wound on right heel, wound cultures were positive for Acinetobacter and MRSA. MRI was negative for osteomyelitis. Seen by pain services for chronic pain. Neuropathic pain. Admitted with acute COPD exacerbation, pneumonia, right heel wound. IV Unasyn daptomycin continued. Bronchodilators. Steroids. For neuropathic pain , Neurontin was increased. seen by pain services. Patient was discharged to rehab Was in hospital and not a part of December. Discharged on December 25. Wound on the right heel. Seen by vascular team Dr. Marie. For outpatient follow-up. Was discharged to rehab. She was discharged from rehab to home yesterday. Patient felt he was discharged prematurely. Was discharged without oxygen and no pain medications. He went to live with his daughter. They were not told how to use oxygen. Apparently fell down and bumped his head. No loss of consciousness. As the daughter brought the patient back to the ER. Was placed in trauma to because of his respiratory status. This morning patient feeling much better. Most to go home. Wants pain medications for his foot. January 07: Patient was seen by vascular. Patient to follow-up outpatient. Discussed with ID. Not for antibiotics at the present time. Wound care to continue. The daughter wants the patient to go to rehab. manager of operations is involved. Patient eating well. Sitting up in a chair. Pain well controlled. January 08: Up in a chair. Comfortable. Oral intake fair. as per Vascular patient had wound care debridement by Dr. blue last week. Patient being scheduled for right healed surgical wound debridement tomorrow. Many boot to right foot. Relevant to head. Changed Burton 5 every 6 when necessary Active Medications Hydrocodone Bitart/Acetaminophen (Hydrocodone/Apap 5-325mg 1 Each Tab) 1 each PO Q6HR PRN PRN Reason: Pain Albuterol/Ipratropium (Ipratropium-Albuterol 3 Ml Neb) 3 ml INHALATION RT-Q4H [facility] Last Admin: 01/08/22 14:55 Dose: Not Given Aspirin (Aspirin 81 Mg) 81 mg PO DAILY [facility] Last Admin: 01/08/22 07:56 Dose: 81 mg Atorvastatin Calcium (Atorvastatin 40 Mg Tab) 40 mg PO HS [facility] Last Admin: 01/07/22 21:53 Dose: 40 mg Budesonide (Budesonide 1 Mg/2 Ml Nebu) 1 mg INHALATION RT-BID [facility] Last Admin: 01/08/22 08:32 Dose: Not Given Bumetanide (Bumetanide 1 Mg Tab) 2 mg PO DAILY [facility] Last Admin: 01/08/22 07:58 Dose: 2 mg Carvedilol (Carvedilol 12.5 Mg Tab) 12.5 mg PO BID [facility] Last Admin: 01/08/22 07:56 Dose: 12.5 mg Collagenase (Collagenase 250 Unit/Gm Ointment 30 Gm Tube) 1 applic TOPICAL DAILY [facility]; Protocol Last Admin: 01/08/22 11:35 Dose: Not Given Diphenhydramine HCl (Diphenhydramine 25 Mg Cap) 25 mg PO QID PRN PRN Reason: Allergic Reaction Last Admin: 01/08/22 17:27 Dose: 25 mg Gabapentin (Gabapentin 300 Mg Cap) 300 mg PO BID [facility] Last Admin: 01/08/22 07:56 Dose: 300 mg Hydralazine HCl (Hydralazine Hcl 50 Mg Tab) 100 mg PO TID [facility] Last Admin: 01/08/22 17:26 Dose: 100 mg Sodium Chloride (Saline 0.9%) 1,000 mls @ 130 mls/hr IV .Q7H42M [facility] Last Admin: 01/08/22 11:35 Dose: Not Given Insulin Aspart (Insulin Aspart (Novolog) 100 Unit/Ml Vial) 10 unit SQ AC-TID [facility] Last Admin: 01/08/22 11:42 Dose: Not Given Insulin Detemir (Insulin Detemir (Levemir) 100 Unit/Ml Syr) 18 unit SQ HS [facility] Last Admin: 01/07/22 23:45 Dose: 18 unit Levetiracetam (Levetiracetam 500 Mg Tab) 1,000 mg PO BID [facility] Last Admin: 01/08/22 07:57 Dose: 1,000 mg Naloxone HCl (Naloxone 0.4 Mg/Ml 1 Ml Vial) 0.2 mg IV Q2M PRN PRN Reason: Opioid Reversal Ropinirole HCl (Ropinirole Hcl 0.25 Mg Tab) 0.5 mg PO TID [facility] Last Admin: 01/08/22 17:26 Dose: 0.5 mg Tamsulosin HCl (Tamsulosin 0.4 Mg Cap.Er.24h) 0.4 mg PO DAILY [facility] Last Admin: 01/08/22 07:56 Dose: 0.4 mg Past medical history to include: Stroke, diabetes, hypertension, left below-knee amputation, right heel wound, PAD Social history: Discharged to home yesterday from of [place], smoked 2 packs a day for 45 years up October 2021. No alcohol. . 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 Conjunctiva normal. HEENT: External appearance of nose and ears normal, oral cavity grossly normal. NECK: JVD not raised; masses not palpable. HEART: First and second heart sounds are normal; no edema. LUNGS: Respiratory rate increased; decreased breath sounds ABDOMEN: Soft, nontender, liver spleen not palpable, no masses palpable. PSYCH: Alert and oriented x3; mood and affect anxious DERMATOLOGICAL: Maculopapular rash. Diffuse MUSCULOSKELETAL:No Clubbing/cyanosis;muscles-grossly intact. EXTREMITIES: Right heel necrotic wound. Dressing right lower extremity. Dry skin. INVESTIGATIONS, reviewed in the clinical context: January 07: White count 6.7 hemoglobin 7 patient is to 55 potassium 5 BUN 42 creatinine 1.6 to January 06: White count 7.7 hemoglobin 7.1 platelets 301 potassium 5.6. 44 creatinine 1.73 EKG tracing personally reviewed by me-normal sensory. Nonspecific ST-T wave changes. Chest x-ray film personally reviewed by me: Possibly chronic changes Recent admission: Carotid Doppler:Subtotal occlusion right ICA and severe stenosis left ICA December 20: Hemoglobin 7 December 19: Potassium 5.1 BUN 37 creatinine 1.81 2-D echocardiogram: EF 60 - 65% Doppler ultrasound December 10 right lower extremity: Negative for DVT Assessment and plan: -Acute hypoxic respiratory failure from COPD exacerbation Patient is unable to use his oxygen at home. Circumstances unclear. Supplemental oxygen. -Chronic encephalomalacia involving the right frontal lobe. -Subtotal occlusion right ICA and severe stenosis left ICA Follow with Dr. Marie outpatient - Acute COPD exacerbation in a previous smoker: improving DuoNeb 4 times a day. Pulmicort nebulizer twice a day. -Right heel diabetic wound negative for osteomyelitis per recent MRI.: Previous Culture positive for Acinetobacter, MRSA No need for further antibiotics per ID.. Patient had his wound debrided by Dr. blue last week and the wound care center. For further wound debridement tomorrow. By vascular. -chronic hypoxic respiratory failure from COPD On home oxygen -Normocytic anemia/iron deficiency anemia -Chronic kidney disease stage III likely diabetic nephropathy and hypertensive nephrosclerosis Creatinine 1.68 on November 09 -Diabetes mellitus type 2, chronically on insulin: Controlled with hypoglycemia Levemir 18 units. Decrease to 5 units with meals Humalog. Sliding scale. -Essential hypertension Coreg 12.5 mg twice a day hydralazine 100 mg 2 times a day -Diabetic peripheral neuropathy: Neurontin 300 mg twice a day -Restless leg syndrome: Requip 0.5 mg by mouth 3 times a day -Left below-knee amputation -PAD -Chronic pain. Patient seen by pain management team last admission. Decreased Burton 7.5 every 6 when necessary. -Full code For right heel wound debridement tomorrow. Other medications to continue. Cutback Burton to 5/325 every 6 when necessary
[2022-01-08 21:04] LABS: Glucose,Whole Blood 157 mg/dL (75-99)
[2022-01-08] MEDS: INSULIN DETEMIR (LEVEMIR) 100 UNIT/ML SYR SQ SCH (22:11)
[2022-01-08] MEDS: ATORVASTATIN 40 MG TAB PO SCH (22:12)
[2022-01-08] MEDS: HYDROcodone/APAP 5-325MG 1 EACH TAB PO PRN (22:44)
[2022-01-09] MEDS: SODIUM CHLORIDE 0.9% 1,000 ML IV SCH ×3 (02:36→17:13)
[2022-01-09] MEDS: IPRATROPIUM-ALBUTEROL 3 ML NEB INHALATION SCH ×6 (03:06→23:15)
[2022-01-09 06:50] LABS: Glucose,Whole Blood 131 mg/dL (75-99)
[2022-01-09] MEDS: hydrALAZINE HCL 50 MG TAB PO SCH ×3 (07:21→20:40)
[2022-01-09] MEDS: TAMSULOSIN 0.4 MG CAP.ER.24H PO SCH (07:21)
[2022-01-09] MEDS: carvediloL 12.5 MG TAB PO SCH ×2 (07:21→20:41)
[2022-01-09] MEDS: ASPIRIN 81 MG PO SCH (07:21)
[2022-01-09] MEDS: INSULIN ASPART (NovoLOG) 100 UNIT/ML VIAL SQ SCH ×3 (07:21→17:45)
[2022-01-09] MEDS: BUMETANIDE 1 MG TAB PO SCH (07:22)
[2022-01-09] MEDS: levETIRAcetam 500 MG TAB PO SCH ×2 (07:22→20:40)
[2022-01-09] MEDS: GABAPENTIN 300 MG CAP PO SCH ×2 (07:22→20:41)
--- NOTE | 2022-01-09 07:26 | P.PN ---
Subjective Progress Note Date: 01/08/22 Principal diagnosis: Right diabetic foot wound Patient is a 61-year-old male who recently did have multiple admission to this facility and was treated for right heel diabetic foot infection with underlying osteomyelitis culture positive for Enterobacter and MRSA and the patient has completed his antibiotic therapy as of 01/01/2022, patient now admitted to the hospital for possible syncopal episode and lack of home oxygen. On today's evaluation that is 01/08/2022, the patient denies having any fever or any chills, the patient is breathing comfortably on nasal cannula oxygen denies having any chest pain shortness of cough no abdominal pain or any worsening pain to the right heel wound area Objective - Vital Signs Vital signs: Vital Signs Temp 98.7 F 01/08/22 08:00 Pulse 114 H 01/08/22 08:00 Resp 18 01/08/22 08:00 BP 158/59 01/08/22 08:00 Pulse Ox 92 L 01/08/22 08:00 FiO2 Intake & Output 01/07/22 01/08/22 01/08/22 18:59 06:59 18:59 Intake Total 2160 Output Total 500 1200 Balance 1660 -1200 Weight 94.347 kg Intake: Oral 2160 Output: Urine 500 1200 Other: # Bowel Movements 0 - Exam GENERAL DESCRIPTION: Middle-age male lying in bed in no distress RESPIRATORY SYSTEM: Unlabored breathing , decreased breath sounds at bases HEART: S1 S2 regular rate and rhythm , ABDOMEN: Soft , no tenderness EXTREMITIES: Right heel is currently dressed no drainage on the dressing - Labs CBC & Chem 7: 01/07/22 06:39 01/07/22 06:39 Labs: Abnormal Lab Results - Last 24 Hours (Table) 01/07/22 01/07/22 01/08/22 Range/Units 16:16 20:06 06:48 POC Glucose (mg/dL) 180 H 173 H 169 H (75-99) mg/dL Assessment and Plan (1) Decubitus ulcer of foot Current Visit: No Status: Acute Code(s): L89.899 - PRESSURE ULCER OF OTHER SITE, UNSPECIFIED STAGE SNOMED Code(s): 5676281504 (2) Diabetic foot ulcer Current Visit: No Status: Acute Code(s): E11.621 - TYPE 2 DIABETES MELLITUS WITH FOOT ULCER; L97.509 - NON-PRESSURE CHRONIC ULCER OTH PRT UNSP FOOT W UNSP SEVERITY SNOMED Code(s): 723069331 Plan: 1patient with a chronic nonhealing wound to the right heel area and this patient with underlying osteomyelitis secondary to Acinetobacter and MRSA for the patient completed more than 6 weeks of antibiotic therapy was recently discontinued patient became to the hospital with a possible syncopal episode and lack of home oxygen, patient did not have any fever white count is normal and no evidence of any significant cellulitis to the right heel wound area recommend local wound care. 2patient will benefit from debridement of the right heel wound. 3local wound care with the Santyl for moist dressing daily and keep the area of pressure. 4no need for systemic antibiotic therapy
[2022-01-09] MEDS: HYDROcodone/APAP 5-325MG 1 EACH TAB PO PRN ×3 (07:39→20:41)
[2022-01-09] MEDS: BUDESONIDE 1 MG/2 ML NEBU INHALATION SCH ×2 (07:50→19:40)
[2022-01-09] MEDS: COLLAGENASE 250 UNIT/GM OINTMENT 30 GM TUBE TOPICAL SCH (09:25)
[2022-01-09 11:22] LABS: Glucose,Whole Blood 160 mg/dL (75-99)
--- NOTE | 2022-01-09 14:07 | P.PN ---
Subjective Progress Note Date: 01/09/22 Principal diagnosis: Nonhealing right diabetic heel ulcer Patient is seen and examined today as a follow-up. He has a diabetic ulcer to the right heel. Patient was scheduled to undergo surgical debridement today however patient had breakfast so procedure is going to be canceled. Patient will follow up with Dr. Rios at outpatient wound care center and will schedule outpatient surgical debridement if oriented. No other acute changes through the night. His been afebrile. Objective - Vital Signs Vital signs: Vital Signs Temp 97.9 F 01/09/22 13:58 Pulse 97 01/09/22 13:58 Resp 18 01/09/22 13:58 BP 163/66 01/09/22 13:58 Pulse Ox 100 01/09/22 13:58 FiO2 Intake & Output 01/08/22 01/09/22 01/09/22 18:59 06:59 18:59 Other: Voiding Method Urinal Urinal # Voids 2 2 2 # Bowel Movements 1 0 0 - Exam General appearance: The patient is alert, oriented, appears in no acute distress. HET: Head is normocephalic and atraumatic. Pupils are equal and reactive. Neck: Supple without lymphadenopathy. Trachea midline. No audible carotid bruit. Heart: S1 S2. Regular rate and rhythm. Lungs: Clear to auscultation bilaterally, diminshed in bases. Abdomen: Soft, nontender, nondistended. Extremities: Generalized rash, scaling skin all over body. Left [id number] amputation stump well-healed. Diabetic ulcer to the right heel with dressing clean dry and intact. Neurological: Alert and oriented. - Labs CBC & Chem 7: 01/07/22 06:39 01/07/22 06:39 Labs: Abnormal Lab Results - Last 24 Hours (Table) 01/08/22 01/08/22 01/09/22 Range/Units 16:33 21:02 06:48 POC Glucose (mg/dL) 352 H 157 H 131 H (75-99) mg/dL 01/09/22 Range/Units 11:21 POC Glucose (mg/dL) 160 H (75-99) mg/dL Assessment and Plan Assessment: 1. Right chronic diabetic heel ulcer 2. Acute hypoxic respiratory failure, COPD exacerbation 3. Diabetes mellitus 4. Subtotal occlusion right ICA and severe stenosis left ICA Plan: 1. Continue symptomatic and supportive care 2. Medi boot to right foot 3. Surgical debridement canceled at this time will be scheduled as an o utpatient. Continue to follow up with wound care center 4. Outpatient follow-up with Dr. Marie for bilateral ICA stenosis, surgical debridement if needed 5. May resume Brilinta 6. Continue with local wound care per recommendations from wound care center Thank you for this consultation, the patient is cleared from vascular surgery for discharge. The impression and plan of care has been dictated as directed. Dr. Poole I performed a history and examination of this patient, discussed the same with the dictator. I agree with the dictator's note ,documented as a scribe. Any additional findings or plans will be noted.
[2022-01-09 16:57] LABS: Glucose,Whole Blood 244 mg/dL (75-99)
--- NOTE | 2022-01-09 17:36 | P.PN ---
Progress Note - Text Progress Note Date: 01/09/22 Chief Complaint: Hypoxic This is a 61-year-old patient, follows with Dr. Smalls Chronic stable medical conditions include diabetes, hypertension, left below- knee amputation. admitted to the hospital on 11/09/2021 with a right foot nonhealing ulcer. Had been a smoker up to recently. Wound on right heel, wound cultures were positive for Acinetobacter and MRSA. MRI was negative for osteomyelitis. Seen by pain services for chronic pain. Neuropathic pain. Admitted with acute COPD exacerbation, pneumonia, right heel wound. IV Unasyn daptomycin continued. Bronchodilators. Steroids. For neuropathic pain , Neurontin was increased. seen by pain services. Patient was discharged to rehab Was in hospital and not a part of December. Discharged on December 25. Wound on the right heel. Seen by vascular team Dr. Marie. For outpatient follow-up. Was discharged to rehab. She was discharged from rehab to home yesterday. Patient felt he was discharged prematurely. Was discharged without oxygen and no pain medications. He went to live with his daughter. They were not told how to use oxygen. Apparently fell down and bumped his head. No loss of consciousness. As the daughter brought the patient back to the ER. Was placed in trauma to because of his respiratory status. This morning patient feeling much better. Most to go home. Wants pain medications for his foot. January 07: Patient was seen by vascular. Patient to follow-up outpatient. Discussed with ID. Not for antibiotics at the present time. Wound care to continue. The daughter wants the patient to go to rehab. manager shipping is involved. Patient eating well. Sitting up in a chair. Pain well controlled. January 08: Up in a chair. Comfortable. Oral intake fair. as per Vascular patient had wound care debridement by Dr. blue last week. Patient being scheduled for right healed surgical wound debridement tomorrow. Many boot to right foot. Relevant to head. Changed Rindge 5 every 6 when necessary January 09: Patient is being refused by 2 rehab places. Up in a chair. Comfortable. Pain control. Debridement was canceled because patient had breakfast. Active Medications Hydrocodone Bitart/Acetaminophen (Hydrocodone/Apap 5-325mg 1 Each Tab) 1 each PO Q6HR PRN PRN Reason: Pain Last Admin: 01/09/22 12:52 Dose: 1 each Albuterol/Ipratropium (Ipratropium-Albuterol 3 Ml Neb) 3 ml INHALATION RT-Q4H [facility] Last Admin: 01/09/22 15:26 Dose: Not Given Aspirin (Aspirin 81 Mg) 81 mg PO DAILY [facility] Last Admin: 01/09/22 07:21 Dose: 81 mg Atorvastatin Calcium (Atorvastatin 40 Mg Tab) 40 mg PO HS [facility] Last Admin: 01/08/22 22:12 Dose: 40 mg Budesonide (Budesonide 1 Mg/2 Ml Nebu) 1 mg INHALATION RT-BID [facility] Last Admin: 01/09/22 07:50 Dose: Not Given Bumetanide (Bumetanide 1 Mg Tab) 2 mg PO DAILY [facility] Last Admin: 01/09/22 07:22 Dose: 2 mg Carvedilol (Carvedilol 12.5 Mg Tab) 12.5 mg PO BID [facility] Last Admin: 01/09/22 07:21 Dose: 12.5 mg Collagenase (Collagenase 250 Unit/Gm Ointment 30 Gm Tube) 1 applic TOPICAL DAILY [facility]; Protocol Last Admin: 01/09/22 09:25 Dose: Not Given Diphenhydramine HCl (Diphenhydramine 25 Mg Cap) 25 mg PO QID PRN PRN Reason: Allergic Reaction Last Admin: 01/08/22 22:44 Dose: 25 mg Gabapentin (Gabapentin 300 Mg Cap) 300 mg PO BID [facility] Last Admin: 01/09/22 07:22 Dose: 300 mg Hydralazine HCl (Hydralazine Hcl 50 Mg Tab) 100 mg PO TID [facility] Last Admin: 01/09/22 07:21 Dose: 100 mg Sodium Chloride (Saline 0.9%) 1,000 mls @ 130 mls/hr IV .Q7H42M [facility] Last Admin: 01/09/22 17:13 Dose: Not Given Insulin Aspart (Insulin Aspart (Novolog) 100 Unit/Ml Vial) 10 unit SQ AC-TID [facility] Last Admin: 01/09/22 12:13 Dose: Not Given Insulin Detemir (Insulin Detemir (Levemir) 100 Unit/Ml Syr) 18 unit SQ HS [facility] Last Admin: 01/08/22 22:11 Dose: 18 unit Levetiracetam (Levetiracetam 500 Mg Tab) 1,000 mg PO BID [facility] Last Admin: 01/09/22 07:22 Dose: 1,000 mg Naloxone HCl (Naloxone 0.4 Mg/Ml 1 Ml Vial) 0.2 mg IV Q2M PRN PRN Reason: Opioid Reversal Ropinirole HCl (Ropinirole Hcl 0.25 Mg Tab) 0.5 mg PO TID [facility] Last Admin: 01/09/22 07:22 Dose: 0.5 mg Tamsulosin HCl (Tamsulosin 0.4 Mg Cap.Er.24h) 0.4 mg PO DAILY [facility] Last Admin: 01/09/22 07:21 Dose: 0.4 mg Past medical history to include: Stroke, diabetes, hypertension, left below-knee amputation, right heel wound, PAD Social history: Discharged to home yesterday from of [place], smoked 2 packs a day for 45 years up October 2021. No alcohol. . 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 Conjunctiva normal. HEENT: External appearance of nose and ears normal, oral cavity grossly normal. NECK: JVD not raised; masses not palpable. HEART: First and second heart sounds are normal; no edema. LUNGS: Respiratory rate increased; decreased breath sounds ABDOMEN: Soft, nontender, liver spleen not palpable, no masses palpable. PSYCH: Alert and oriented x3; mood and affect anxious MUSCULOSKELETAL:No Clubbing/cyanosis;muscles-grossly intact. EXTREMITIES: Right heel necrotic wound. Dressing right lower extremity. Dry skin. INVESTIGATIONS, reviewed in the clinical context: January 07: White count 6.7 hemoglobin 7 patient is to 55 potassium 5 BUN 42 creatinine 1.6 to January 06: White count 7.7 hemoglobin 7.1 platelets 301 potassium 5.6. 44 creatinine 1.73 EKG tracing personally reviewed by me-normal sensory. Nonspecific ST-T wave changes. Chest x-ray film personally reviewed by me: Possibly chronic changes Recent admission: Carotid Doppler:Subtotal occlusion right ICA and severe stenosis left ICA December 20: Hemoglobin 7 December 19: Potassium 5.1 BUN 37 creatinine 1.81 2-D echocardiogram: EF 60 - 65% Doppler ultrasound December 10 right lower extremity: Negative for DVT Assessment and plan: -Acute hypoxic respiratory failure from COPD exacerbation Patient is unable to use his oxygen at home. Circumstances unclear. Supplemental oxygen. -Chronic encephalomalacia involving the right frontal lobe. -Subtotal occlusion right ICA and severe stenosis left ICA Follow with Dr. Marie outpatient - Acute COPD exacerbation in a previous smoker: improving DuoNeb 4 times a day. Pulmicort nebulizer twice a day. -Right heel diabetic wound negative for osteomyelitis per recent MRI.: Previous Culture positive for Acinetobacter, MRSA No need for further antibiotics per ID.. Patient had his wound debrided by Dr. blue last week and the wound care center. Debridement is being weeks scheduled by vascular -chronic hypoxic respiratory failure from COPD On home oxygen -Normocytic anemia/iron deficiency anemia -Chronic kidney disease stage III likely diabetic nephropathy and hypertensive nephrosclerosis Creatinine 1.68 on November 09 -Diabetes mellitus type 2, chronically on insulin: Controlled with hypoglycemia Levemir 18 units. Decrease to 5 units with meals Humalog. Sliding scale. -Essential hypertension Coreg 12.5 mg twice a day hydralazine 100 mg 2 times a day -Diabetic peripheral neuropathy: Neurontin 300 mg twice a day -Restless leg syndrome: Requip 0.5 mg by mouth 3 times a day -Left below-knee amputation -PAD -Chronic pain. Patient seen by pain management team last admission. Decreased Rindge 7.5 every 6 when necessary. -Full code For right heel wound debridement being rescheduled. Repeat labs tomorrow. Discussed with patient. Patient has been refused by 2 rehab places. Case management is working on disposition.
[2022-01-09] MEDS: ATORVASTATIN 40 MG TAB PO SCH (20:40)
[2022-01-09] MEDS: diphenhydrAMINE 25 MG CAP PO PRN (20:42)
[2022-01-09 20:54] LABS: Glucose,Whole Blood 217 mg/dL (75-99)
[2022-01-09] MEDS: INSULIN DETEMIR (LEVEMIR) 100 UNIT/ML SYR SQ SCH (21:56)
[2022-01-10] MEDS: IPRATROPIUM-ALBUTEROL 3 ML NEB INHALATION SCH ×5 (03:35→21:01)
[2022-01-10] MEDS: HYDROcodone/APAP 5-325MG 1 EACH TAB PO PRN (05:26)
[2022-01-10] MEDS: SODIUM CHLORIDE 0.9% 1,000 ML IV SCH ×4 (05:51→21:31)
[2022-01-10] MEDS: diphenhydrAMINE 25 MG CAP PO PRN ×4 (06:35→23:40)
[2022-01-10] MEDS: INSULIN ASPART (NovoLOG) 100 UNIT/ML VIAL SQ SCH ×3 (06:50→17:21)
[2022-01-10 06:52] LABS: Glucose,Whole Blood 174 mg/dL (75-99)
[2022-01-10 07:34] LABS: Basophils # (A) 0.1 k/uL (0-0.2); Basophils % (A) 1 %; Eosinophils # (A) 0.4 k/uL (0-0.7); Eosinophils % (A) 6 %; HCT 23.2 % (39.0-53.0); Hypochromasia Marked; Lymphocytes # (A) 0.9 k/uL (1.0-4.8); Lymphocytes % (A) 13 %; MCH 27.1 pg (25.0-35.0); MCHC 28.7 g/dL (31.0-37.0); MCV 94.5 fL (80.0-100.0); Mean Platelet Volume 7.5; Monocytes # (A) 0.6 k/uL (0-1.0); Monocytes % (A) 8 %; Neutrophils # (A) 4.8 k/uL (1.3-7.7); Neutrophils % (A) 71 %; Platelet Count 247 k/uL (150-450); RBC 2.46 m/uL (4.30-5.90); RDW 15.3 % (11.5-15.5); WBC 6.8 k/uL (3.8-10.6)
[2022-01-10 07:43] LABS: HGB 6.7 gm/dL (13.0-17.5)
[2022-01-10 08:07] LABS: Calcium 8.1 mg/dL (8.4-10.2)
[2022-01-10 08:12] LABS: Potassium 5.1 mmol/L (3.5-5.1)
[2022-01-10] MEDS: hydrALAZINE HCL 50 MG TAB PO SCH ×3 (08:54→21:27)
[2022-01-10] MEDS: TAMSULOSIN 0.4 MG CAP.ER.24H PO SCH (08:54)
[2022-01-10] MEDS: BUMETANIDE 1 MG TAB PO SCH (08:54)
[2022-01-10] MEDS: carvediloL 12.5 MG TAB PO SCH ×2 (08:54→21:27)
[2022-01-10] MEDS: ASPIRIN 81 MG PO SCH (08:55)
[2022-01-10] MEDS: COLLAGENASE 250 UNIT/GM OINTMENT 30 GM TUBE TOPICAL SCH (08:55)
[2022-01-10] MEDS: levETIRAcetam 500 MG TAB PO SCH ×2 (08:55→21:28)
[2022-01-10] MEDS: GABAPENTIN 300 MG CAP PO SCH ×2 (08:55→21:27)
[2022-01-10] MEDS: BUDESONIDE 1 MG/2 ML NEBU INHALATION SCH ×2 (09:06→21:01)
--- NOTE | 2022-01-10 11:00 | P.PN ---
Subjective Progress Note Date: 01/10/22 Principal diagnosis: Nonhealing right diabetic heel ulcer Patient seen and examined. Patient had a drop in his hemoglobin to 6.7. 1 unit of PRBC transfusion ordered. His discharge has been held, so will plan to reschedule heel debridement tomorrow. Afebrile without any other changes. Objective - Vital Signs Vital signs: Vital Signs Temp 98.6 F 01/10/22 08:00 Pulse 102 H 01/10/22 08:00 Resp 18 01/10/22 08:00 BP 166/70 01/10/22 08:00 Pulse Ox 97 01/10/22 09:15 FiO2 Intake & Output 01/09/22 01/10/22 01/10/22 18:59 06:59 18:59 Intake Total 360 Output Total 400 Balance -400 360 Intake: Oral 360 Output: Urine 400 Other: Voiding Method Urinal Urinal # Voids 5 1 # Bowel Movements 0 - Exam General appearance: The patient is alert, oriented, appears in no acute distress. HET: Head is normocephalic and atraumatic. Pupils are equal and reactive. Neck: Supple without lymphadenopathy. Trachea midline. No audible carotid bruit. Heart: S1 S2. Regular rate and rhythm. Lungs: Clear to auscultation bilaterally, diminshed in bases. Abdomen: Soft, nontender, nondistended. Extremities: Generalized rash, scaling skin all over body. Left [id number] amputation stump well-healed. Diabetic ulcer to the right heel with dressing clean dry and intact. Neurological: Alert and oriented. - Labs CBC & Chem 7: 01/10/22 06:56 01/10/22 06:56 Labs: Abnormal Lab Results - Last 24 Hours (Table) 01/09/22 01/09/22 01/09/22 Range/Units 11:21 16:56 20:52 RBC (4.30-5.90) m/uL Hgb (13.0-17.5) gm/dL Hct (39.0-53.0) % MCHC (31.0-37.0) g/dL Lymphocytes # (1.0-4.8) k/uL Chloride (98-107) mmol/L BUN (9-20) mg/dL Creatinine (0.66-1.25) mg/dL Glucose (74-99) mg/dL POC Glucose (mg/dL) 160 H 244 H 217 H (75-99) mg/dL Calcium (8.4-10.2) mg/dL 01/10/22 01/10/22 01/10/22 Range/Units 06:49 06:56 06:56 RBC 2.46 L (4.30-5.90) m/uL Hgb 6.7 L* (13.0-17.5) gm/dL Hct 23.2 L (39.0-53.0) % MCHC 28.7 L (31.0-37.0) g/dL Lymphocytes # 0.9 L (1.0-4.8) k/uL Chloride 109 H (98-107) mmol/L BUN 39 H (9-20) mg/dL Creatinine 1.70 H (0.66-1.25) mg/dL Glucose 157 H (74-99) mg/dL POC Glucose (mg/dL) 174 H (75-99) mg/dL Calcium 8.1 L (8.4-10.2) mg/dL Assessment and Plan Assessment: 1. Right chronic diabetic heel ulcer 2. Acute hypoxic respiratory failure, COPD exacerbation 3. Diabetes mellitus 4. Subtotal occlusion right ICA and severe stenosis left ICA Plan: 1. Continue symptomatic and supportive care 2. Offloading soft boot to right foot 3. Surgical debridement scheduled for tomorrow morning 4. Outpatient follow-up with Dr. Marie for bilateral ICA stenosis 5. Continue to hold Brilinta 6. Continue with local wound care per recommendations from wound care center 7. Nothing by mouth after midnight 8. 1 unit PRBC transfusion ordered, repeat CBC this afternoon and in the morning Thank you for this consultation, we'll continue to follow The impression and plan of care has been dictated as directed. Dr. Marie I performed a history and examination of this patient, discussed the same with the dictator. I agree with the dictator's note ,documented as a scribe. Any additional findings or plans will be noted.
[2022-01-10 11:51] LABS: Glucose,Whole Blood 134 mg/dL (75-99)
[2022-01-10] MEDS: HYDROcodone/APAP 7.5-325MG 1 EACH TAB PO PRN ×3 (12:06→23:40)
[2022-01-10 14:00] LABS: HCT 21.6 % (39.0-53.0); Hypochromasia Marked; MCH 27.4 pg (25.0-35.0); MCHC 29.1 g/dL (31.0-37.0); MCV 94.1 fL (80.0-100.0); Platelet Count 253 k/uL (150-450); RBC 2.29 m/uL (4.30-5.90); RDW 15.4 % (11.5-15.5)
--- NOTE | 2022-01-10 14:05 | P.PN ---
Progress Note - Text Progress Note Date: 01/10/22 Chief Complaint: Hypoxic This is a 61-year-old patient, follows with Dr. Smalls Chronic stable medical conditions include diabetes, hypertension, left below- knee amputation. admitted to the hospital on 11/09/2021 with a right foot nonhealing ulcer. Had been a smoker up to recently. Wound on right heel, wound cultures were positive for Acinetobacter and MRSA. MRI was negative for osteomyelitis. Seen by pain services for chronic pain. Neuropathic pain. Admitted with acute COPD exacerbation, pneumonia, right heel wound. IV Unasyn daptomycin continued. Bronchodilators. Steroids. For neuropathic pain , Neurontin was increased. seen by pain services. Patient was discharged to rehab Was in hospital and not a part of December. Discharged on December 25. Wound on the right heel. Seen by vascular team Dr. Marie. For outpatient follow-up. Was discharged to rehab. She was discharged from rehab to home yesterday. Patient felt he was discharged prematurely. Was discharged without oxygen and no pain medications. He went to live with his daughter. They were not told how to use oxygen. Apparently fell down and bumped his head. No loss of consciousness. As the daughter brought the patient back to the ER. Was placed in trauma to because of his respiratory status. This morning patient feeling much better. Most to go home. Wants pain medications for his foot. January 07: Patient was seen by vascular. Patient to follow-up outpatient. Discussed with ID. Not for antibiotics at the present time. Wound care to continue. The daughter wants the patient to go to rehab. district sales manager is involved. Patient eating well. Sitting up in a chair. Pain well controlled. January 08: Up in a chair. Comfortable. Oral intake fair. as per Vascular patient had wound care debridement by Dr. blue last week. Patient being scheduled for right healed surgical wound debridement tomorrow. Many boot to right foot. Relevant to head. Changed [place] 5 every 6 when necessary January 09: Patient is being refused by 2 rehab places. Up in a chair. Comfortable. Pain control. Debridement was canceled because patient had breakfast. January 10: Patient completed Increased pain. [place] increased to 7.5 every 6 when necessary continue with Neurontin. Plan for debridement tomorrow. 2 places from rehab have declined the patient. Daughter is out of town till tomorrow. Hemoglobin 6.7 this morning. 1 unit PRBC ordered. Active Medications Hydrocodone Bitart/Acetaminophen (Hydrocodone/Apap 7.5-325mg 1 Each Tab) 1 each PO Q6HR PRN PRN Reason: Moderate Pain Last Admin: 01/10/22 12:06 Dose: 1 each Albuterol/Ipratropium (Ipratropium-Albuterol 3 Ml Neb) 3 ml INHALATION RT-Q4H [facility] Last Admin: 01/10/22 12:47 Dose: Not Given Aspirin (Aspirin 81 Mg) 81 mg PO DAILY [facility] Last Admin: 01/10/22 08:55 Dose: 81 mg Atorvastatin Calcium (Atorvastatin 40 Mg Tab) 40 mg PO HS [facility] Last Admin: 01/09/22 20:40 Dose: 40 mg Budesonide (Budesonide 1 Mg/2 Ml Nebu) 1 mg INHALATION RT-BID [facility] Last Admin: 01/10/22 09:06 Dose: Not Given Bumetanide (Bumetanide 1 Mg Tab) 2 mg PO DAILY [facility] Last Admin: 01/10/22 08:54 Dose: 2 mg Carvedilol (Carvedilol 12.5 Mg Tab) 12.5 mg PO BID [facility] Last Admin: 01/10/22 08:54 Dose: 12.5 mg Collagenase (Collagenase 250 Unit/Gm Ointment 30 Gm Tube) 1 applic TOPICAL DAILY [facility]; Protocol Last Admin: 01/10/22 08:55 Dose: 1 applic Diphenhydramine HCl (Diphenhydramine 25 Mg Cap) 25 mg PO QID PRN PRN Reason: Allergic Reaction Last Admin: 01/10/22 12:07 Dose: 25 mg Gabapentin (Gabapentin 300 Mg Cap) 300 mg PO BID [facility] Last Admin: 01/10/22 08:55 Dose: 300 mg Hydralazine HCl (Hydralazine Hcl 50 Mg Tab) 100 mg PO TID [facility] Last Admin: 01/10/22 08:54 Dose: 100 mg Sodium Chloride (Saline 0.9%) 1,000 mls @ 130 mls/hr IV .[id number] [facility] Last Admin: 01/10/22 05:52 Dose: Not Given Insulin Aspart (Insulin Aspart (Novolog) 100 Unit/Ml Vial) 10 unit SQ AC-TID [facility] Last Admin: 01/10/22 12:07 Dose: 10 unit Insulin Detemir (Insulin Detemir (Levemir) 100 Unit/Ml Syr) 18 unit SQ HS [facility] Last Admin: 01/09/22 21:56 Dose: 18 unit Levetiracetam (Levetiracetam 500 Mg Tab) 1,000 mg PO BID [facility] Last Admin: 01/10/22 08:55 Dose: 1,000 mg Naloxone HCl (Naloxone 0.4 Mg/Ml 1 Ml Vial) 0.2 mg IV Q2M PRN PRN Reason: Opioid Reversal Ropinirole HCl (Ropinirole Hcl 0.25 Mg Tab) 0.5 mg PO TID [facility] Last Admin: 01/10/22 08:54 Dose: 0.5 mg Tamsulosin HCl (Tamsulosin 0.4 Mg Cap.Er.24h) 0.4 mg PO DAILY [facility] Last Admin: 01/10/22 08:54 Dose: 0.4 mg Past medical history to include: Stroke, diabetes, hypertension, left below-knee amputation, right heel wound, PAD Social history: Discharged to home yesterday from of [place], smoked 2 packs a day for 45 years up October 2021. No alcohol. . 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 Conjunctiva normal. HEENT: External appearance of nose and ears normal, oral cavity grossly normal. NECK: JVD not raised; masses not palpable. HEART: First and second heart sounds are normal; no edema. LUNGS: Respiratory rate increased; decreased breath sounds ABDOMEN: Soft, nontender, liver spleen not palpable, no masses palpable. PSYCH: Alert and oriented x3; mood and affect anxious MUSCULOSKELETAL:No Clubbing/cyanosis;muscles-grossly intact. EXTREMITIES: Right heel necrotic wound. Dressing right lower extremity. Dry skin. Left below-knee amputation INVESTIGATIONS, reviewed in the clinical context: January 10: Blood 6.7 potassium 5.1 BUN 39 creatinine 1.7 January 07: White count 6.7 hemoglobin 7 patient is to 55 potassium 5 BUN 42 creatinine 1.6 to January 06: White count 7.7 hemoglobin 7.1 platelets 301 potassium 5.6. 44 creatinine 1.73 EKG tracing personally reviewed by me-normal sensory. Nonspecific ST-T wave changes. Chest x-ray film personally reviewed by me: Possibly chronic changes Recent admission: Carotid Doppler:Subtotal occlusion right ICA and severe stenosis left ICA December 20: Hemoglobin December 19: Potassium 5.1 BUN 37 creatinine 1.81 2-D echocardiogram: EF 60 - 65% Doppler ultrasound December 10 right lower extremity: Negative for DVT Assessment and plan: -Acute hypoxic respiratory failure from COPD exacerbation Patient is unable to use his oxygen at home. Circumstances unclear. Supplemental oxygen. -Chronic encephalomalacia involving the right frontal lobe. -Subtotal occlusion right ICA and severe stenosis left ICA Follow with Dr. Marie outpatient - Acute COPD exacerbation in a previous smoker: improving DuoNeb 4 times a day. Pulmicort nebulizer twice a day. -Right heel diabetic wound negative for osteomyelitis per recent MRI.: Previous Culture positive for Acinetobacter, MRSA No need for further antibiotics per ID.. Patient had his wound debrided by Dr. blue last week and the wound care center. Debridement rescheduled for tomorrow by vascular. -chronic hypoxic respiratory failure from COPD On home oxygen -Acute on chronic Normocytic anemia/iron deficiency anemia Transfuse 1 unit of PRBC -Chronic kidney disease stage III likely diabetic nephropathy and hypertensive nephrosclerosis Creatinine 1.68 on November 09 -Diabetes mellitus type 2, chronically on insulin: Controlled with hypoglycemia Levemir 18 units. Decrease to 5 units with meals Humalog. Sliding scale. -Essential hypertension Coreg 12.5 mg twice a day hydralazine 100 mg 2 times a day -Diabetic peripheral neuropathy: Neurontin 300 mg twice a day -Restless leg syndrome: Requip 0.5 mg by mouth 3 times a day -Left below-knee amputation -PAD -Chronic pain. Patient seen by pain management team last admission. Increase [place] 7.5 every 6 when necessary. Continue Neurontin -Full code Discussed with patient. Increase [place] to 7.5 every 6 when necessary. Continue Neurontin. 4 debridement scheduled tomorrow. If gets more pain issues then to consult pain management team. Transfuse 1 unit of blood.
[2022-01-10 14:06] LABS: HGB 6.3 gm/dL (13.0-17.5)
[2022-01-10 16:29] LABS: Glucose,Whole Blood 132 mg/dL (75-99)
[2022-01-10 20:57] LABS: Glucose,Whole Blood 172 mg/dL (75-99)
[2022-01-10] MEDS: INSULIN DETEMIR (LEVEMIR) 100 UNIT/ML SYR SQ SCH (21:27)
[2022-01-10] MEDS: ATORVASTATIN 40 MG TAB PO SCH (21:27)
[2022-01-11] MEDS: IPRATROPIUM-ALBUTEROL 3 ML NEB INHALATION SCH ×7 (04:02→23:39)
[2022-01-11] MEDS: SODIUM CHLORIDE 0.9% 1,000 ML IV SCH ×3 (05:42→17:42)
[2022-01-11] MEDS: HYDROcodone/APAP 7.5-325MG 1 EACH TAB PO PRN ×2 (05:43→16:04)
[2022-01-11] MEDS: diphenhydrAMINE 25 MG CAP PO PRN ×2 (05:43→16:04)
[2022-01-11] MEDS: INSULIN ASPART (NovoLOG) 100 UNIT/ML VIAL SQ SCH ×3 (06:05→17:50)
[2022-01-11 07:23] LABS: Glucose,Whole Blood 136 mg/dL (75-99)
[2022-01-11] MEDS: carvediloL 12.5 MG TAB PO SCH (08:09)
[2022-01-11] MEDS: ASPIRIN 81 MG PO SCH (08:09)
[2022-01-11] MEDS: TAMSULOSIN 0.4 MG CAP.ER.24H PO SCH (08:09)
[2022-01-11] MEDS: GABAPENTIN 300 MG CAP PO SCH (08:09)
[2022-01-11] MEDS: BUMETANIDE 1 MG TAB PO SCH (08:09)
[2022-01-11] MEDS: levETIRAcetam 500 MG TAB PO SCH (08:09)
[2022-01-11] MEDS: hydrALAZINE HCL 50 MG TAB PO SCH ×2 (08:09→15:49)
[2022-01-11] MEDS: BUDESONIDE 1 MG/2 ML NEBU INHALATION SCH ×2 (08:34→19:35)
[2022-01-11] MEDS: COLLAGENASE 250 UNIT/GM OINTMENT 30 GM TUBE TOPICAL SCH (10:49)
--- NOTE | 2022-01-11 10:53 | P.PN ---
Progress Note - Text Progress Note Date: 01/11/22 Patient is scheduled to undergo debridement of the right heel. Yesterday he had a drop in his hemoglobin to 6.3 he was given 1 unit PRBC transfusion. Apparently they attempted to draw labs status post transfusion but the patient refused. Unfortunately today there is only one director of cath lab available in the hospital and his blood has not been redrawn at this time. He has no signs or symptoms of GI blood loss. He has a history of anemia of chronic disease. Tentative plan is still to possibly due right heel debridement today. The impression and plan of care has been dictated as directed. Dr. Poole I performed a history and examination of this patient, discussed the same with the dictator. I agree with the dictator's note ,documented as a scribe. Any additional findings or plans will be noted.
[2022-01-11] MEDS ORDERED: fentaNYL (PF) 50 MCG/ML 2 ML AMP IVP ONE ×3 (11:13→11:21)
[2022-01-11] MEDS ORDERED: LACTATED RINGERS 1,000 ML IV ONE (11:16)
[2022-01-11 11:21] LABS: Glucose,Whole Blood 126 mg/dL (75-99)
[2022-01-11] MEDS ORDERED: PROPOFOL 10 MG/ML 20 ML VIAL IV ONE (12:18)
[2022-01-11] MEDS ORDERED: MIDAZOLAM 2 MG/2 ML VIAL ONE (12:18)
[2022-01-11] MEDS ORDERED: SILVER NITRATE APPLICATOR 1 EACH STICK..EA. TOPICAL ONE ×2 (12:43)
--- NOTE | 2022-01-11 12:56 | P.OP ---
Date of Procedure: 01/11/22 Description of Procedure: Preoperative diagnosis: [Right heel pressure ulceration] Postoperative diagnosis: Same Procedure: [Sharp excisional debridement right heel ulcer 7 x 3.9 x 0.2 to fascia] Surgeon: Lexii Poole D.O. EBL: [<10cc] IV fluids: [see records ] Urine output: [not measured] Drains: [none] Complications: [none immediately apparent] Condition: [Stable to recovery] Operative indication and findings: [Patient is a 61-year-old male with significant immobility who continues to have a right heel ulceration. It has been debrided in the past and again has there is eschar. Debridement was recommended and Risks and benefits were discussed. All parties involved singly understood and are willing to proceed. Anesthesia sent CBC at the time of surgery due to no drop earlier after his transfusion] Procedure in detail: [Patient seemingly operative suite and placed in the left lateral decubitus position. The right heel was prepped and draped in usual sterile fashion. A preprocedure timeout performed, all parties were in agreement. Scalpel was utilized for sharp excisional debridement. The areas of eschar were excised down to the level of more healthy-appearing tissue. This was at the level of fascia. There was some areas that possibly could have probed deeper however given the appearance it was left at this time. Hemostasis was achieved with silver nitrate. A dressing was placed with extra offloading padding. .]
[2022-01-11] MEDS: HYDROmorphone 1 MG/ML 1 ML SYRINGE IVP ONE ×2 (13:00→13:05)
[2022-01-11 13:07] LABS: HCT 25.5 % (39.0-53.0); HGB 7.5 gm/dL (13.0-17.5); Hypochromasia Marked; MCH 27.6 pg (25.0-35.0); MCHC 29.5 g/dL (31.0-37.0); MCV 93.6 fL (80.0-100.0); Mean Platelet Volume 7.1; Platelet Count 241 k/uL (150-450); RBC 2.73 m/uL (4.30-5.90); RDW 15.3 % (11.5-15.5); WBC 8.2 k/uL (3.8-10.6)
[2022-01-11] MEDS ORDERED: LIDOCAINE 1% (10MG/ML) FOR IV START INTRADERMA PRN (13:25)
[2022-01-11] MEDS ORDERED: HYDROmorphone 0.5 MG/0.5 ML SYRINGE IVP PRN (13:25)
[2022-01-11] MEDS ORDERED: DEXAMETHASONE SOD PHOSPHATE 4 MG/ML 1 ML VIAL IV ONE (13:25)
[2022-01-11] MEDS ORDERED: ONDANSETRON 4 MG/2 ML VIAL IVP ONE (13:25)
--- NOTE | 2022-01-11 17:25 | P.PN ---
Subjective Progress Note Date: 01/11/22 61-year-old patient, follows with Dr. Smalls Chronic stable medical conditions include diabetes, hypertension, left below- knee amputation. admitted to the hospital on 11/09/2021 with a right foot nonhealing ulcer. Had been a smoker up to recently. Wound on right heel, wound cultures were positive for Acinetobacter and MRSA. MRI was negative for osteomyelitis. Seen by pain services for chronic pain. Neuropathic pain. Admitted with acute COPD exacerbation, pneumonia, right heel wound. IV Unasyn daptomycin continued. Bronchodilators. Steroids. For neuropathic pain , Neurontin was increased. seen by pain services. Patient was discharged to rehab Was in hospital and not a part of December. Discharged on December 25. Wound on the right heel. Seen by vascular team Dr. Marie. For outpatient follow-up. Was discharged to rehab. She was discharged from rehab to home yesterday. Patient felt he was discharged prematurely. Was discharged without oxygen and no pain medications. He went to live with his daughter. They were not told how to use oxygen. Apparently fell down and bumped his head. No loss of consciousness. As the daughter brought the patient back to the ER. Was placed in trauma to because of his respiratory status. This morning patient feeling much better. Most to go home. Wants pain medications for his foot. January 07: Patient was seen by vascular. Patient to follow-up outpatient. Discussed with ID. Not for antibiotics at the present time. Wound care to continue. The daughter wants the patient to go to rehab. industrial relations manager is involved. Patient eating well. Sitting up in a chair. Pain well controlled. January 08: Up in a chair. Comfortable. Oral intake fair. as per Vascular patient had wound care debridement by Dr. blue last week. Patient being scheduled for right healed surgical wound debridement tomorrow. Many boot to right foot. Relevant to head. Changed [place] 5 every 6 when necessary January 09: Patient is being refused by 2 rehab places. Up in a chair. Comfortable. Pain control. Debridement was canceled because patient had breakfast. January 10: Patient completed Increased pain. [place] increased to 7.5 every 6 when necessary continue with Neurontin. Plan for debridement tomorrow. 2 places from rehab have declined the patient. Daughter is out of town till tomorrow. Hemoglobin 6.7 this morning. 1 unit PRBC ordered. Objective - Vital Signs Vital signs: Vital Signs Temp 99.3 F 01/11/22 11:14 Pulse 96 01/11/22 11:14 Resp 18 01/11/22 11:14 BP 148/66 01/11/22 11:14 Pulse Ox 94 L 01/11/22 11:14 FiO2 4 01/11/22 00:00 Intake & Output 01/10/22 01/11/22 01/11/22 18:59 06:59 18:59 Intake Total 1030 Output Total 1000 Balance 30 Weight 94.347 kg Intake: Oral 720 Blood Product 310 Rc As-1 Unit 310 [id number] Output: Urine 1000 Other: Voiding Method Urinal Urinal Urinal - Labs CBC & Chem 7: 01/11/22 12:50 01/10/22 06:56 Labs: Abnormal Lab Results - Last 24 Hours (Table) 01/10/22 01/10/22 01/10/22 Range/Units 10:02 13:41 16:27 RBC 2.29 L (4.30-5.90) m/uL Hgb 6.3 L* (13.0-17.5) gm/dL Hct 21.6 L (39.0-53.0) % MCHC 29.1 L (31.0-37.0) g/dL POC Glucose (mg/dL) 132 H (75-99) mg/dL Crossmatch See Detail 01/10/22 01/11/22 01/11/22 Range/Units 20:55 07:21 11:19 RBC (4.30-5.90) m/uL Hgb (13.0-17.5) gm/dL Hct (39.0-53.0) % MCHC (31.0-37.0) g/dL POC Glucose (mg/dL) 172 H 136 H 126 H (75-99) mg/dL Crossmatch Assessment and Plan Assessment: GENERAL: Laying in bed, but uncomfortable HEENT: External appearance of nose and ears normal, oral cavity grossly normal. NECK: JVD not raised; masses not palpable. HEART: First and second heart sounds are normal; no edema. LUNGS: Respiratory rate increased; decreased breath sounds ABDOMEN: Soft, nontender, liver spleen not palpable, no masses palpable. MUSCULOSKELETAL:No Clubbing/cyanosis;muscles-grossly intact. EXTREMITIES: Right heel necrotic wound. Dressing right lower extremity. Dry skin. Left below-knee amputation
[2022-01-11] MEDS: LACTATED RINGERS 1,000 ML IV SCH (17:42)
[2022-01-11 17:48] LABS: Glucose,Whole Blood 148 mg/dL (75-99)
[2022-01-11] MEDS: LORazepam 2 MG/ML INJ IV PRN (19:37)
--- NOTE | 2022-01-11 20:11 | P.PN ---
Subjective Progress Note Date: 01/09/22 Principal diagnosis: Right diabetic foot wound Patient is a 61-year-old male who recently did have multiple admission to this facility and was treated for right heel diabetic foot infection with underlying osteomyelitis culture positive for Enterobacter and MRSA and the patient has completed his antibiotic therapy as of 01/01/2022, patient now admitted to the hospital for possible syncopal episode and lack of home oxygen. On today's evaluation that is 01/09/2022, the patient remains to be afebrile, the patient is breathing comfortably on nasal cannula oxygen, the patient denies having any chest pain shortness of cough no abdominal pain and pain to the right heel wound area is currently controlled Objective - Vital Signs Vital signs: Vital Signs Temp 97.9 F 01/09/22 13:58 Pulse 97 01/09/22 13:58 Resp 18 01/09/22 13:58 BP 163/66 01/09/22 13:58 Pulse Ox 100 01/09/22 13:58 FiO2 Intake & Output 01/08/22 01/09/22 01/09/22 18:59 06:59 18:59 Other: Voiding Method Urinal Urinal # Voids 2 2 2 # Bowel Movements 1 0 0 - Exam GENERAL DESCRIPTION: Middle-age male lying in bed in no distress RESPIRATORY SYSTEM: Unlabored breathing , decreased breath sounds at bases HEART: S1 S2 regular rate and rhythm , ABDOMEN: Soft , no tenderness EXTREMITIES: Right heel is currently dressed no drainage on the dressing - Labs CBC & Chem 7: 01/11/22 12:50 01/10/22 06:56 Labs: Abnormal Lab Results - Last 24 Hours (Table) 01/08/22 01/08/22 01/09/22 Range/Units 16:33 21:02 06:48 POC Glucose (mg/dL) 352 H 157 H 131 H (75-99) mg/dL 01/09/22 Range/Units 11:21 POC Glucose (mg/dL) 160 H (75-99) mg/dL Assessment and Plan (1) Decubitus ulcer of foot Current Visit: No Status: Acute Code(s): L89.899 - PRESSURE ULCER OF OTHER SITE, UNSPECIFIED STAGE SNOMED Code(s): 5772395804 (2) Diabetic foot ulcer Current Visit: No Status: Acute Code(s): E11.621 - TYPE 2 DIABETES MELLITUS WITH FOOT ULCER; L97.509 - NON-PRESSURE CHRONIC ULCER OTH PRT UNSP FOOT W UNSP SEVERITY SNOMED Code(s): 058038198 Plan: 1patient with a chronic nonhealing wound to the right heel area and this patient with underlying osteomyelitis secondary to Acinetobacter and MRSA for the patient completed more than 6 weeks of antibiotic therapy was recently disc ontinued patient became to the hospital with a possible syncopal episode and lack of home oxygen, patient did not have any fever white count is normal and no evidence of any significant cellulitis to the right heel wound area recommend local wound care. 2patient will benefit from debridement of the right heel wound for which vascular surgery is following the patient. 3local wound care with the Santyl for moist dressing daily and keep the area of pressure. Time with Patient: Less than 30
--- NOTE | 2022-01-11 20:12 | P.PN ---
Subjective Progress Note Date: 01/10/22 Principal diagnosis: Right diabetic foot wound Patient is a 61-year-old male who recently did have multiple admission to this facility and was treated for right heel diabetic foot infection with underlying osteomyelitis culture positive for Enterobacter and MRSA and the patient has completed his antibiotic therapy as of 01/01/2022, patient now admitted to the hospital for possible syncopal episode and lack of home oxygen. On today's evaluation that is 01/10/2022, the patient continues to be afebrile, the patient is breathing comfortably on nasal cannula oxygen, the patient denies chest pain or cough no abdominal pain and pain to the right heel wound area is currently controlled Objective - Vital Signs Vital signs: Vital Signs Temp 98.6 F 01/10/22 08:00 Pulse 102 H 01/10/22 08:00 Resp 18 01/10/22 08:00 BP 166/70 01/10/22 08:00 Pulse Ox 97 01/10/22 09:15 FiO2 Intake & Output 01/09/22 01/10/22 01/10/22 18:59 06:59 18:59 Intake Total 360 Output Total 400 Balance -400 360 Intake: Oral 360 Output: Urine 400 Other: Voiding Method Urinal Urinal Urinal # Voids 5 1 # Bowel Movements 0 - Exam GENERAL DESCRIPTION: Middle-age male lying in bed in no distress RESPIRATORY SYSTEM: Unlabored breathing , decreased breath sounds at bases HEART: S1 S2 regular rate and rhythm , ABDOMEN: Soft , no tenderness EXTREMITIES: Right heel is currently dressed no drainage on the dressing - Labs CBC & Chem 7: 01/11/22 12:50 01/10/22 06:56 Labs: Abnormal Lab Results - Last 24 Hours (Table) 01/09/22 01/09/22 01/10/22 Range/Units 16:56 20:52 06:49 RBC (4.30-5.90) m/uL Hgb (13.0-17.5) gm/dL Hct (39.0-53.0) % MCHC (31.0-37.0) g/dL Lymphocytes # (1.0-4.8) k/uL Chloride (98-107) mmol/L BUN (9-20) mg/dL Creatinine (0.66-1.25) mg/dL Glucose (74-99) mg/dL POC Glucose (mg/dL) 244 H 217 H 174 H (75-99) mg/dL Calcium (8.4-10.2) mg/dL Crossmatch 01/10/22 01/10/22 01/10/22 Range/Units 06:56 06:56 10:02 RBC 2.46 L (4.30-5.90) m/uL Hgb 6.7 L* (13.0-17.5) gm/dL Hct 23.2 L (39.0-53.0) % MCHC 28.7 L (31.0-37.0) g/dL Lymphocytes # 0.9 L (1.0-4.8) k/uL Chloride 109 H (98-107) mmol/L BUN 39 H (9-20) mg/dL Creatinine 1.70 H (0.66-1.25) mg/dL Glucose 157 H (74-99) mg/dL POC Glucose (mg/dL) (75-99) mg/dL Calcium 8.1 L (8.4-10.2) mg/dL Crossmatch See Detail 01/10/22 Range/Units 11:50 RBC (4.30-5.90) m/uL Hgb (13.0-17.5) gm/dL Hct (39.0-53.0) % MCHC (31.0-37.0) g/dL Lymphocytes # (1.0-4.8) k/uL Chloride (98-107) mmol/L BUN (9-20) mg/dL Creatinine (0.66-1.25) mg/dL Glucose (74-99) mg/dL POC Glucose (mg/dL) 134 H (75-99) mg/dL Calcium (8.4-10.2) mg/dL Crossmatch Assessment and Plan (1) Decubitus ulcer of foot Current Visit: No Status: Acute Code(s): L89.899 - PRESSURE ULCER OF OTHER SITE, UNSPECIFIED STAGE SNOMED Code(s): 3161570534 (2) Diabetic foot ulcer Current Visit: No Status: Acute Code(s): E11.621 - TYPE 2 DIABETES MELLITUS WITH FOOT ULCER; L97.509 - NON-PRESSURE CHRONIC ULCER OTH PRT UNSP FOOT W UNSP SEVERITY SNOMED Code(s): 714235215 Plan: 1patient with a chronic nonhealing wound to the right heel area and this patient with underlying osteomyelitis secondary to Acinetobacter and MRSA for the patient completed more than 6 weeks of antibiotic therapy was recently discontinued patient became to the hospital with a possible syncopal episode and lack of home oxygen, patient did not have any fever white count is normal and no evidence of any significant cellulitis to the right heel wound area recommend local wound care. 2patient will benefit from debridement of the right heel wound for which patient scheduled for tomorrow. 3local wound care with the Santyl for moist dressing daily and keep the area of pressure, no need for systemic antibiotic Time with Patient: Less than 30
--- NOTE | 2022-01-11 20:14 | P.PN ---
Subjective Progress Note Date: 01/11/22 Principal diagnosis: Right diabetic foot wound Patient is a 61-year-old male who recently did have multiple admission to this facility and was treated for right heel diabetic foot infection with underlying osteomyelitis culture positive for Enterobacter and MRSA and the patient has completed his antibiotic therapy as of 01/01/2022, patient now admitted to the hospital for possible syncopal episode and lack of home oxygen. On today's evaluation that is 01/11/2022, the patient denies any fever or chills, the patient is breathing comfortably on nasal cannula oxygen, the patient denies chest pain or cough, the patient denies abdominal pain and pain to the right heel wound area is currently controlled Objective - Vital Signs Vital signs: Vital Signs Temp 99.3 F 01/11/22 11:14 Pulse 96 01/11/22 11:14 Resp 18 01/11/22 11:14 BP 148/66 01/11/22 11:14 Pulse Ox 94 L 01/11/22 11:14 FiO2 4 01/11/22 00:00 Intake & Output 01/10/22 01/11/22 01/11/22 18:59 06:59 18:59 Intake Total 1030 200 Output Total 1000 Balance 30 200 Weight 94.347 kg Intake: IV 200 Oral 720 Blood Product 310 Rc As-1 Unit 310 [id number] Output: Urine 1000 Other: Voiding Method Urinal Urinal Urinal - Exam GENERAL DESCRIPTION: Middle-age male lying in bed in no distress RESPIRATORY SYSTEM: Unlabored breathing , decreased breath sounds at bases HEART: S1 S2 regular rate and rhythm , ABDOMEN: Soft , no tenderness EXTREMITIES: Right heel is currently dressed no drainage on the dressing - Labs CBC & Chem 7: 01/11/22 12:50 01/10/22 06:56 Labs: Abnormal Lab Results - Last 24 Hours (Table) 01/10/22 01/10/22 01/10/22 Range/Units 10:02 13:41 16:27 RBC 2.29 L (4.30-5.90) m/uL Hgb 6.3 L* (13.0-17.5) gm/dL Hct 21.6 L (39.0-53.0) % MCHC 29.1 L (31.0-37.0) g/dL POC Glucose (mg/dL) 132 H (75-99) mg/dL Crossmatch See Detail 01/10/22 01/11/22 01/11/22 Range/Units 20:55 07:21 11:19 RBC (4.30-5.90) m/uL Hgb (13.0-17.5) gm/dL Hct (39.0-53.0) % MCHC (31.0-37.0) g/dL POC Glucose (mg/dL) 172 H 136 H 126 H (75-99) mg/dL Crossmatch Assessment and Plan (1) Decubitus ulcer of foot Current Visit: No Status: Acute Code(s): L89.899 - PRESSURE ULCER OF OTHER SITE, UNSPECIFIED STAGE SNOMED Code(s): 6795757538 (2) Diabetic foot ulcer Current Visit: No Status: Acute Code(s): E11.621 - TYPE 2 DIABETES MELLITUS WITH FOOT ULCER; L97.509 - NON-PRESSURE CHRONIC ULCER OTH PRT UNSP FOOT W UNSP SEVERITY SNOMED Code(s): 785593988 Plan: 1patient with a chronic nonhealing wound to the right heel area and this patient with underlying osteomyelitis secondary to Acinetobacter and MRSA for the patient completed more than 6 weeks of antibiotic therapy was recently discontinued patient became to the hospital with a possible syncopal episode and lack of home oxygen, patient did not have any fever white count is normal and no evidence of any significant cellulitis to the right heel wound area recommend local wound care. 2patient is status post debridement of the right heel wound completed on 01/11/2022 operative report did not mention any purulence or evidence of deep infection 3[facility] for moist dressing daily and keep the area of pressure Time with Patient: Less than 30
[2022-01-11 20:54] LABS: Glucose,Whole Blood 118 mg/dL (75-99)
[2022-01-11] MEDS: INSULIN DETEMIR (LEVEMIR) 100 UNIT/ML SYR SQ SCH (20:56)
[2022-01-12] MEDS: levETIRAcetam 500 MG TAB PO SCH ×3 (00:14→22:05)
[2022-01-12] MEDS: ATORVASTATIN 40 MG TAB PO SCH ×2 (00:19→21:17)
[2022-01-12] MEDS: carvediloL 12.5 MG TAB PO SCH ×3 (00:19→21:17)
[2022-01-12] MEDS: hydrALAZINE HCL 50 MG TAB PO SCH ×5 (00:20→21:16)
[2022-01-12] MEDS: GABAPENTIN 300 MG CAP PO SCH ×4 (00:20→21:17)
[2022-01-12] MEDS: SODIUM CHLORIDE 0.9% 1,000 ML IV SCH ×3 (01:26→16:59)
[2022-01-12] MEDS: HYDROcodone/APAP 7.5-325MG 1 EACH TAB PO PRN ×4 (02:16→21:17)
[2022-01-12] MEDS: LORazepam 2 MG/ML INJ IV PRN (02:26)
[2022-01-12] MEDS: IPRATROPIUM-ALBUTEROL 3 ML NEB INHALATION SCH ×5 (04:06→23:08)
[2022-01-12] MEDS: MORPHINE SULFATE 2 MG/ML SYRINGE IVP PRN ×4 (04:28→19:25)
[2022-01-12] MEDS: diphenhydrAMINE 25 MG CAP PO PRN (06:06)
[2022-01-12 06:20] LABS: Glucose,Whole Blood 158 mg/dL (75-99)
[2022-01-12] MEDS: TAMSULOSIN 0.4 MG CAP.ER.24H PO SCH (08:08)
[2022-01-12] MEDS: BUMETANIDE 1 MG TAB PO SCH (08:08)
[2022-01-12] MEDS: BUDESONIDE 1 MG/2 ML NEBU INHALATION SCH ×2 (08:08→23:08)
[2022-01-12] MEDS: ASPIRIN 81 MG PO SCH (08:09)
[2022-01-12 09:27] LABS: Glucose,Whole Blood 200 mg/dL (75-99)
[2022-01-12] MEDS: INSULIN ASPART (NovoLOG) 100 UNIT/ML VIAL SQ SCH ×3 (09:31→16:59)
[2022-01-12] MEDS: COLLAGENASE 250 UNIT/GM OINTMENT 30 GM TUBE TOPICAL SCH (09:51)
[2022-01-12 12:03] LABS: Glucose,Whole Blood 157 mg/dL (75-99)
--- NOTE | 2022-01-12 13:30 | P.CN ---
Psychiatric Consult - . Consult date: 01/12/22 Consult:: 01/12/22 13:22 Patient is a 61-year-old male who recently did have multiple admission to this facility and was treated for right heel diabetic foot infection with underlying osteomyelitis culture positive for Enterobacter and MRSA and the patient has completed his antibiotic therapy as of 01/01/2022, patient now admitted to the hospital for possible syncopal episode and lack of home oxygen. The patient is currently hospitalized for treatment of his decubiti ulcer as well as or better pain control A psychiatric consultation was requested after patient had become angry and frustrated and demanding According to the nursing staff the patient was somewhat agitated and demanding Patient was demanding for better pain control medications and feels that the morphine administered is not sufficient Patient had also made some suicidal threats at that time When seen today patient is calm and contained Patient denies that he has any intention of harming himself or others He denies any past history of any depression or anxiety or any suicidal or homicidal ideations or plans He states that he was jealous angry and frustrated and overwhelmed with too many people coming at him at the same time He now requests if he can get some better pain control medications Nursing however reports that the patient can a very manipulative and demanding Patient denies any history of any mental illness or any past psychiatric treatment He currently denies any suicidal or homicidal ideations or plans Past history personal social history Patient reports that he suffers from severe diabetes mellitus type 1 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 as well as ulceration of the foot and osteomyelitis on this right foot For the medical history as per the admitting physician Patient states that he is currently being helped with home health services as well as with his family Patient stated that he has 4 children in over 20 grandchildren as well as great- grandchildren He states that he used to work for the [employer] in [place] until his [place] [facility] about 2 years ago due to his health problems Mental status examination: Reveals a middle-aged male who looks much older for his age Patient is alert and oriented to place and person Speech was clear coherent and relevant Thought processes are goal-directed sequential and logical Patient denies any suicidal or homicidal ideations Formal and operational judgment and insight remains somewhat concrete and self- centered Patient's insight and his problem is partial Patient seems to rationalize intellectualize his behavior Cognitively patient appears to be intact Diagnostic impression: Adjustment disorder with mixed emotional features 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 Plan: The patient is not suicidal or homicidal and does not meet the criteria for involuntary or voluntary psychiatric hospitalization Patient seems to be focused on his current needs for better pain control and would benefit from a discussion about his pain medications either by the primary care physician/pain clinical nurse specialist etc since patient's years seems to be contingent to his symptomatic relief Patient also would be a good candidate for supportive counseling and would recommend referral to outpatient supportive counseling and psychiatric services Thank you very much for the kind referral please feel free to contact me further questions Rod Madison M.D. 01/12/2022
[2022-01-12] MEDS: LACTATED RINGERS 1,000 ML IV SCH (14:53)
--- NOTE | 2022-01-12 16:27 | P.PN ---
Subjective Progress Note Date: 01/12/22 Principal diagnosis: right heel wound patient seen and evaluated. No complaints of fevers, chills, chest pain or shortness of breath. Wants to go home. Objective - Vital Signs Vital signs: Vital Signs Temp 98 F 01/12/22 14:00 Pulse 97 01/12/22 15:48 Resp 17 01/12/22 14:00 BP 147/75 01/12/22 14:00 Pulse Ox 94 L 01/12/22 14:00 FiO2 4 01/11/22 00:00 Intake & Output 01/11/22 01/12/22 01/12/22 18:59 06:59 18:59 Intake Total 400 460 Output Total 5 500 Balance 395 -40 Intake: IV 400 Oral 460 Output: Urine 500 Estimated Blood Loss 5 Other: Voiding Method Urinal Urinal Urinal # Voids 2 - Exam right heel wound with some eschar, no purulence, non tender to palpation left amputation site stable - Labs CBC & Chem 7: 01/11/22 12:50 01/10/22 06:56 Labs: Abnormal Lab Results - Last 24 Hours (Table) 01/11/22 01/11/22 01/12/22 Range/Units 17:46 20:53 06:19 POC Glucose (mg/dL) 148 H 118 H 158 H (75-99) mg/dL 01/12/22 01/12/22 Range/Units 09:25 12:02 POC Glucose (mg/dL) 200 H 157 H (75-99) mg/dL Assessment and Plan Assessment: right chronic diabetic heel ulcer s/p right heel debridement subtotal right ICA occlusion Severe left ICA stenosis Plan: Continue local wound care with [facility] daily dressing changes No further surgical intervention at this time Will see again Friday
[2022-01-12 16:37] LABS: Glucose,Whole Blood 126 mg/dL (75-99)
--- NOTE | 2022-01-12 18:49 | P.PN ---
Subjective Progress Note Date: 01/12/22 Principal diagnosis: Acute hypoxic respiratory failure from COPD exacerbation Subtotal occlusion right ICA and severe stenosis left ICA Right heel diabetic wound negative for osteomyelitis per recent MRI Chronic hypoxic respiratory failure from COPD Acute on chronic Normocytic anemia/iron deficiency anemia Right heel diabetic wound negative for osteomyelitis per recent MRI 61-year-old patient, follows with Dr. Smalls Chronic stable medical conditions include diabetes, hypertension, left below- knee amputation. admitted to the hospital on 11/09/2021 with a right foot nonhealing ulcer. Had been a smoker up to recently. Wound on right heel, wound cultures were positive for Acinetobacter and MRSA. MRI was negative for osteomyelitis. Seen by pain services for chronic pain. Neuropathic pain. Admitted with acute COPD exacerbation, pneumonia, right heel wound. IV Unasyn daptomycin continued. Bronchodilators. Steroids. For neuropathic pain , Neurontin was increased. seen by pain services. Patient was discharged to rehab Was in hospital and not a part of December. Discharged on December 25. Wound on the right heel. Seen by vascular team Dr. Marie. For outpatient follow-up. Was discharged to rehab. She was discharged from rehab to home yesterday. Patient felt he was discharged prematurely. Was discharged without oxygen and no pain medications. He went to live with his daughter. They were not told how to use oxygen. Apparently fell down and bumped his head. No loss of consciousness. As the daughter brought the patient back to the ER. Was placed in trauma to because of his respiratory status. This morning patient feeling much better. Most to go home. Wants pain medications for his foot. January 07: Patient was seen by vascular. Patient to follow-up outpatient. Discussed with ID. Not for antibiotics at the present time. Wound care to continue. The daughter wants the patient to go to rehab. manager spring is edenilson figueroa. Patient eating well. Sitting up in a chair. Pain well controlled. January 08: Up in a chair. Comfortable. Oral intake fair. as per Vascular patient had wound care debridement by Dr. blue last week. Patient being scheduled for right healed surgical wound debridement tomorrow. Many boot to right foot. Relevant to head. Changed Robson 5 every 6 when necessary January 09: Patient is being refused by 2 rehab places. Up in a chair. Comfortable. Pain control. Debridement was canceled because patient had breakfast. January 10: Patient completed Increased pain. Robson increased to 7.5 every 6 when necessary continue with Neurontin. Plan for debridement tomorrow. 2 places from rehab have declined the patient. Daughter is out of town till tomorrow. Hemoglobin 6.7 this morning. 1 unit PRBC ordered. 01/12/2022 Patient seen and evaluated. No complaints of fevers, chills, chest pain or shortness of breath. Patient did have an episode yesterday evening when he revealed that he wanted account and wouldn't want to kill himself; sitter has been placed on bedside; psych evaluated patient and deemed patient not suicidal or homicidal; patient is deemed good candidate for supportive counseling with plans to provide referral to outpatient supportive counseling and psychiatric services Patient is status post sharp excisional debridement of right heel pressure u lcer; POD #1; vascular surgery is following; Continue local wound care with [facility] daily dressing changes; No further surgical intervention at this time Objective - Vital Signs Vital signs: Vital Signs Temp 98 F 01/12/22 08:14 Pulse 104 H 01/12/22 08:24 Resp 17 01/12/22 08:14 BP 148/65 01/12/22 08:14 Pulse Ox 97 01/12/22 08:14 FiO2 4 01/11/22 00:00 Intake & Output 01/11/22 01/12/22 01/12/22 18:59 06:59 18:59 Intake Total 400 240 Output Total 5 Balance 395 240 Intake: IV 400 Oral 240 Output: Estimated Blood Loss 5 Other: Voiding Method Urinal Urinal Urinal # Voids 2 - Exam PHYSICAL EXAMINATION: GENERAL: The patient is alert and oriented x3, not in any acute distress. Well developed, well nourished. HEENT: Pupils are round and equally reacting to light. EOMI. No scleral icterus. No conjunctival pallor. Normocephalic, atraumatic. No pharyngeal erythema. No thyromegaly. CARDIOVASCULAR: S1 and S2 present. No murmurs, rubs, or gallops. PULMONARY: Chest is clear to auscultation, no wheezing or crackles. ABDOMEN: Soft, nontender, nondistended, normoactive bowel sounds. No palpable organomegaly. MUSCULOSKELETAL: No joint swelling or deformity. EXTREMITIES: No cyanosis, clubbing, or pedal edema. NEUROLOGICAL: Gross neurological examination did not reveal any focal deficits. SKIN: No rashes. - Labs CBC & Chem 7: 01/11/22 12:50 01/10/22 06:56 Labs: Abnormal Lab Results - Last 24 Hours (Table) 01/11/22 01/11/22 01/11/22 Range/Units 12:50 17:46 20:53 RBC 2.73 L (4.30-5.90) m/uL Hgb 7.5 L (13.0-17.5) gm/dL Hct 25.5 L (39.0-53.0) % MCHC 29.5 L (31.0-37.0) g/dL POC Glucose (mg/dL) 148 H 118 H (75-99) mg/dL 01/12/22 01/12/22 Range/Units 06:19 09:25 RBC (4.30-5.90) m/uL Hgb (13.0-17.5) gm/dL Hct (39.0-53.0) % MCHC (31.0-37.0) g/dL POC Glucose (mg/dL) 158 H 200 H (75-99) mg/dL Assessment and Plan Assessment: GENERAL: Laying in bed, but uncomfortable HEENT: External appearance of nose and ears normal, oral cavity grossly normal. NECK: JVD not raised; masses not palpable. HEART: First and second heart sounds are normal; no edema. LUNGS: Respiratory rate increased; decreased breath sounds ABDOMEN: Soft, nontender, liver spleen not palpable, no masses palpable. MUSCULOSKELETAL:No Clubbing/cyanosis;muscles-grossly intact. EXTREMITIES: Right heel necrotic wound. Dressing right lower extremity. Dry skin. Left below-knee amputation
[2022-01-12 21:16] LABS: Glucose,Whole Blood 239 mg/dL (75-99)
[2022-01-12] MEDS: INSULIN DETEMIR (LEVEMIR) 100 UNIT/ML SYR SQ SCH (21:17)
[2022-01-13] MEDS: SODIUM CHLORIDE 0.9% 1,000 ML IV SCH ×3 (00:25→21:07)
[2022-01-13] MEDS: IPRATROPIUM-ALBUTEROL 3 ML NEB INHALATION SCH ×6 (00:35→20:28)
[2022-01-13] MEDS: LORazepam 2 MG/ML INJ IV PRN ×3 (02:06→22:23)
[2022-01-13] MEDS: HYDROcodone/APAP 7.5-325MG 1 EACH TAB PO PRN ×3 (03:18→21:03)
[2022-01-13] MEDS: MORPHINE SULFATE 2 MG/ML SYRINGE IVP PRN ×5 (04:36→19:35)
[2022-01-13 07:14] LABS: Glucose,Whole Blood 120 mg/dL (75-99)
[2022-01-13 08:06] LABS: African American GFR (CKD) 50 (>60 ml/min/1.73 sqM); Anion Gap 7 mmol/L; Blood Urea Nitrogen 43 mg/dL (9-20); Calcium 8.4 mg/dL (8.4-10.2); Carbon Dioxide 28 mmol/L (22-30); Chloride 106 mmol/L (98-107); Glucose 101 mg/dL (74-99); Non-African American GFR(CKD) 44 (>60 ml/min/1.73 sqM); Potassium 5.6 mmol/L (3.5-5.1); Sodium 141 mmol/L (137-145)
[2022-01-13] MEDS: BUDESONIDE 1 MG/2 ML NEBU INHALATION SCH ×2 (08:14→20:28)
[2022-01-13] MEDS: TAMSULOSIN 0.4 MG CAP.ER.24H PO SCH (09:05)
[2022-01-13] MEDS: GABAPENTIN 300 MG CAP PO SCH ×2 (09:05→21:03)
[2022-01-13] MEDS: hydrALAZINE HCL 50 MG TAB PO SCH ×3 (09:06→21:03)
[2022-01-13] MEDS: carvediloL 12.5 MG TAB PO SCH ×2 (09:06→21:03)
[2022-01-13 11:26] LABS: Glucose,Whole Blood 156 mg/dL (75-99)
[2022-01-13] MEDS: BUMETANIDE 1 MG TAB PO SCH (12:24)
[2022-01-13] MEDS: ASPIRIN 81 MG PO SCH (12:24)
[2022-01-13] MEDS: levETIRAcetam 500 MG TAB PO SCH ×2 (12:24→21:43)
[2022-01-13] MEDS: INSULIN ASPART (NovoLOG) 100 UNIT/ML VIAL SQ SCH ×3 (13:46→18:55)
[2022-01-13] MEDS: HEPARIN SODIUM,PORCINE/PF 5,000 UNIT/0.5 ML SYRINGE SQ SCH ×2 (15:54→23:08)
[2022-01-13] MEDS: LACTATED RINGERS 1,000 ML IV SCH (16:05)
[2022-01-13 16:37] LABS: Glucose,Whole Blood 203 mg/dL (75-99)
[2022-01-13] MEDS: COLLAGENASE 250 UNIT/GM OINTMENT 30 GM TUBE TOPICAL SCH (18:54)
[2022-01-13] MEDS: ATORVASTATIN 40 MG TAB PO SCH (21:03)
[2022-01-13 21:04] LABS: Glucose,Whole Blood 172 mg/dL (75-99)
[2022-01-13] MEDS: INSULIN DETEMIR (LEVEMIR) 100 UNIT/ML SYR SQ SCH (21:04)
[2022-01-14] MEDS: IPRATROPIUM-ALBUTEROL 3 ML NEB INHALATION SCH ×5 (00:33→20:11)
[2022-01-14] MEDS: MORPHINE SULFATE 2 MG/ML SYRINGE IVP PRN (02:43)
[2022-01-14] MEDS: LORazepam 2 MG/ML INJ IV PRN ×4 (04:07→21:57)
[2022-01-14 06:55] LABS: Glucose,Whole Blood 139 mg/dL (75-99)
[2022-01-14] MEDS: BUDESONIDE 1 MG/2 ML NEBU INHALATION SCH ×2 (08:22→20:10)
[2022-01-14] MEDS: INSULIN ASPART (NovoLOG) 100 UNIT/ML VIAL SQ SCH ×3 (08:23→18:08)
[2022-01-14] MEDS: diphenhydrAMINE 25 MG CAP PO PRN ×2 (08:23→20:54)
[2022-01-14] MEDS ORDERED: LORazepam 2 MG/ML INJ IV STA (08:45)
[2022-01-14 11:59] LABS: Glucose,Whole Blood 94 mg/dL (75-99)
--- NOTE | 2022-01-14 14:02 | P.PN ---
Subjective Progress Note Date: 01/13/22 Principal diagnosis: Acute hypoxic respiratory failure from COPD exacerbation Subtotal occlusion right ICA and severe stenosis left ICA Right heel diabetic wound negative for osteomyelitis per recent MRI Chronic hypoxic respiratory failure from COPD Acute on chronic Normocytic anemia/iron deficiency anemia Right heel diabetic wound negative for osteomyelitis per recent MRI 61-year-old patient, follows with Dr. Smalls Chronic stable medical conditions include diabetes, hypertension, left below- knee amputation. admitted to the hospital on 11/09/2021 with a right foot nonhealing ulcer. Had been a smoker up to recently. Wound on right heel, wound cultures were positive for Acinetobacter and MRSA. MRI was negative for osteomyelitis. Seen by pain services for chronic pain. Neuropathic pain. Admitted with acute COPD exacerbation, pneumonia, right heel wound. IV Unasyn daptomycin continued. Bronchodilators. Steroids. For neuropathic pain , Neurontin was increased. seen by pain services. Patient was discharged to rehab Was in hospital and not a part of December. Discharged on December 25. Wound on the right heel. Seen by vascular team Dr. Marie. For outpatient follow-up. Was discharged to rehab. She was discharged from rehab to home yesterday. Patient felt he was discharged prematurely. Was discharged without oxygen and no pain medications. He went to live with his daughter. They were not told how to use oxygen. Apparently fell down and bumped his head. No loss of consciousness. As the daughter brought the patient back to the ER. Was placed in trauma to because of his respiratory status. This morning patient feeling much better. Most to go home. Wants pain medications for his foot. January 07: Patient was seen by vascular. Patient to follow-up outpatient. Discussed with ID. Not for antibiotics at the present time. Wound care to continue. The daughter wants the patient to go to rehab. field marketing manager is edenilson figueroa. Patient eating well. Sitting up in a chair. Pain well controlled. January 08: Up in a chair. Comfortable. Oral intake fair. as per Vascular patient had wound care debridement by Dr. blue last week. Patient being scheduled for right healed surgical wound debridement tomorrow. Many boot to right foot. Relevant to head. Changed Independence 5 every 6 when necessary January 09: Patient is being refused by 2 rehab places. Up in a chair. Comfortable. Pain control. Debridement was canceled because patient had breakfast. January 10: Patient completed Increased pain. Independence increased to 7.5 every 6 when necessary continue with Neurontin. Plan for debridement tomorrow. 2 places from rehab have declined the patient. Daughter is out of town till tomorrow. Hemoglobin 6.7 this morning. 1 unit PRBC ordered. 01/12/2022 Patient seen and evaluated. No complaints of fevers, chills, chest pain or shortness of breath. Patient did have an episode yesterday evening when he revealed that he wanted account and wouldn't want to kill himself; sitter has been placed on bedside; psych evaluated patient and deemed patient not suicidal or homicidal; patient is deemed good candidate for supportive counseling with plans to provide referral to outpatient supportive counseling and psychiatric services Patient is status post sharp excisional debridement of right heel pressure u lcer; POD #1; vascular surgery is following; Continue local wound care with Santyl daily dressing changes; No further surgical intervention at this time 01/13/2022 Patient is currently lying in the bed. Awake alert and oriented 3. Status post debridement of the right heel wound. No complaints of chest pain or shortness of breath. Patient was seen by psychiatric and recommends no inpatient admission suggested. Likely due to adjustment disorder. Patient is being continued on pain management with Independence 7.5 every 6 hourly. Also on gabapentin 300 mg 3 times a day. Next and blood pressure is still elevated with SBP and 170s. Laboratory data showed sodium 141 potassium 5.6 chloride 106 bicarb is 28 BUN 43 and creatinine 1.67 Patient is being continued on insulin regimen and adjust dose as needed. Current medications reviewed. Objective - Vital Signs Vital signs: Vital Signs Temp 97.8 F 01/13/22 14:00 Pulse 99 01/13/22 14:00 Resp 18 01/13/22 14:00 BP 163/70 01/13/22 14:00 Pulse Ox 95 01/13/22 14:00 FiO2 4 01/11/22 00:00 Intake & Output 01/12/22 01/13/22 01/13/22 18:59 06:59 18:59 Intake Total 460 Output Total 500 700 350 Balance -40 -700 -350 Intake: Oral 460 Output: Urine 500 700 350 Other: Voiding Method Urinal Urinal - Exam PHYSICAL EXAMINATION: GENERAL: The patient is alert and oriented x3, not in any acute distress. Well developed, well nourished. HEENT: Pupils are round and equally reacting to light. EOMI. No scleral icterus. No conjunctival pallor. Normocephalic, atraumatic. No pharyngeal erythema. No thyromegaly. CARDIOVASCULAR: S1 and S2 present. No murmurs, rubs, or gallops. PULMONARY: Chest is clear to auscultation, no wheezing or crackles. ABDOMEN: Soft, nontender, nondistended, normoactive bowel sounds. No palpable organomegaly. MUSCULOSKELETAL: No joint swelling or deformity. EXTREMITIES: No cyanosis, clubbing, or pedal edema. NEUROLOGICAL: Gross neurological examination did not reveal any focal deficits. SKIN: No rashes. - Labs CBC & Chem 7: 01/11/22 12:50 01/13/22 07:38 Labs: Abnormal Lab Results - Last 24 Hours (Table) 01/12/22 01/12/22 01/13/22 Range/Units 16:35 21:15 07:12 Potassium (3.5-5.1) mmol/L BUN (9-20) mg/dL Creatinine (0.66-1.25) mg/dL Glucose (74-99) mg/dL POC Glucose (mg/dL) 126 H 239 H 120 H (75-99) mg/dL 01/13/22 01/13/22 Range/Units 07:38 11:24 Potassium 5.6 H (3.5-5.1) mmol/L BUN 43 H (9-20) mg/dL Creatinine 1.67 H (0.66-1.25) mg/dL Glucose 101 H (74-99) mg/dL POC Glucose (mg/dL) 156 H (75-99) mg/dL Assessment and Plan Assessment: Assessment and plan: -Acute hypoxic respiratory failure from COPD exacerbation Patient is unable to use his oxygen at home. Supplemental oxygen. -Chronic encephalomalacia involving the right frontal lobe. -Subtotal occlusion right ICA and severe stenosis left ICA Follow with Dr. Marie outpatient - Acute COPD exacerbation in a previous smoker: improving DuoNeb 4 times a day. Pulmicort nebulizer twice a day. -Right heel diabetic wound negative for osteomyelitis per recent MRI.: Previous Culture positive for Acinetobacter, MRSA No need for further antibiotics per ID.. Patient had his wound debrided by Dr. blue last week and the wound care center. Status post right heel debridement on 01/11/2022. -chronic hypoxic respiratory failure from COPD On home oxygen -Acute on chronic Normocytic anemia/iron deficiency anemia Transfuse 1 unit of PRBC -Chronic kidney disease stage III likely diabetic nephropathy and hypertensive nephrosclerosis -Mild hyperkalemia 5.6. Creatinine 1.68 on November 09 -Diabetes mellitus type 2, chronically on insulin: Controlled with hypoglycemia Levemir 18 units. Decrease to 5 units with meals Humalog. Sliding scale. -Essential hypertension Coreg 12.5 mg twice a day hydralazine 100 mg 2 times a day -Diabetic peripheral neuropathy: Neurontin 300 mg twice a day -Restless leg syndrome: Requip 0.5 mg by mouth 3 times a day -Left below-knee amputation -PAD -Chronic pain. Patient seen by pain management team last admission. Increase Independence 7.5 every 6 when necessary. Continue Neurontin -Full code Discussed with patient. Increase Independence to 7.5 every 6 when necessary. Continue Neurontin. If gets more pain issues then to consult pain management team. Follow-up H&H and renal function and potassium. Time with Patient: Greater than 30
--- NOTE | 2022-01-14 15:23 | P.PN ---
Subjective Progress Note Date: 01/14/22 Principal diagnosis: Nonhealing right diabetic heel ulcer Patient is seen and examined lying in bed. He is status post debridement of his right heel. No complaints of fevers or chills. Continues to have chronic pain. He is awaiting insurance authorization for subacute rehab. Objective - Vital Signs Vital signs: Vital Signs Temp 98.1 F 01/14/22 02:00 Pulse 93 01/14/22 02:00 Resp 19 01/14/22 02:00 BP 162/73 01/14/22 02:00 Pulse Ox 100 01/14/22 02:00 FiO2 4 01/11/22 00:00 Intake & Output 01/13/22 01/14/22 01/14/22 18:59 06:59 18:59 Output Total 750 100 Balance -750 -100 Output: Urine 750 100 Other: Voiding Method Urinal # Voids 2 - Exam General appearance: The patient is alert, oriented, appears in no acute distress. HET: Head is normocephalic and atraumatic. Pupils are equal and reactive. Neck: Supple without lymphadenopathy. Trachea midline. No audible carotid bruit. Heart: S1 S2. Regular rate and rhythm. Lungs: Clear to auscultation bilaterally, diminshed in bases. Abdomen: Soft, nontender, nondistended. Extremities: Generalized rash, scaling skin all over body. Left [id number] amputation stump well-healed. Diabetic ulcer to the right heel with some eschar, no purulence, nontender to palpation. Neurological: Alert and oriented. - Labs CBC & Chem 7: 01/11/22 12:50 01/13/22 07:38 Labs: Abnormal Lab Results - Last 24 Hours (Table) 01/13/22 01/13/22 01/13/22 Range/Units 11:24 16:32 21:03 POC Glucose (mg/dL) 156 H 203 H 172 H (75-99) mg/dL 01/14/22 Range/Units 06:53 POC Glucose (mg/dL) 139 H (75-99) mg/dL Assessment and Plan Assessment: 1. Right chronic diabetic heel ulcer status post debridement 2. Acute hypoxic respiratory failure, COPD exacerbation 3. Diabetes mellitus 4. Subtotal occlusion right ICA and severe stenosis left ICA Plan: Continue local wound care with Santyl daily dressing changes Offload pressure to the right heel, use soft offloading boot No further surgical intervention at this time. He may follow-up with outpatient wound care clinic Thank you for this consultation, we will sign off at this time. The impression and plan of care has been dictated as directed. Dr. Montalvo I performed a history and examination of this patient, discussed the same with the dictator. I agree with the dictator's note ,documented as a scribe. Any additional findings or plans will be noted.
[2022-01-14] MEDS: HEPARIN SODIUM,PORCINE/PF 5,000 UNIT/0.5 ML SYRINGE SQ SCH ×2 (16:41→18:08)
[2022-01-14] MEDS: hydrALAZINE HCL 50 MG TAB PO SCH ×3 (16:41→22:09)
[2022-01-14] MEDS: carvediloL 12.5 MG TAB PO SCH ×2 (16:41→22:09)
[2022-01-14] MEDS: GABAPENTIN 300 MG CAP PO SCH (16:41)
[2022-01-14] MEDS: BUMETANIDE 1 MG TAB PO SCH (16:41)
[2022-01-14] MEDS: ASPIRIN 81 MG PO SCH (16:41)
[2022-01-14] MEDS: levETIRAcetam 500 MG TAB PO SCH ×2 (16:41→22:10)
[2022-01-14] MEDS: TAMSULOSIN 0.4 MG CAP.ER.24H PO SCH (16:42)
[2022-01-14] MEDS: LACTATED RINGERS 1,000 ML IV SCH (16:43)
[2022-01-14 17:03] LABS: Glucose,Whole Blood 116 mg/dL (75-99)
--- NOTE | 2022-01-14 17:19 | P.PN ---
Progress Note - Text Progress Note Date: 01/14/22 Chief Complaint: Hypoxic This is a 61-year-old patient, follows with Dr. Smalls Chronic stable medical conditions include diabetes, hypertension, left below- knee amputation. admitted to the hospital on 11/09/2021 with a right foot nonhealing ulcer. Had been a smoker up to recently. Wound on right heel, wound cultures were positive for Acinetobacter and MRSA. MRI was negative for osteomyelitis. Seen by pain services for chronic pain. Neuropathic pain. Admitted with acute COPD exacerbation, pneumonia, right heel wound. IV Unasyn daptomycin continued. Bronchodilators. Steroids. For neuropathic pain , Neurontin was increased. seen by pain services. Patient was discharged to rehab Was in hospital and not a part of December. Discharged on December 25. Wound on the right heel. Seen by vascular team Dr. Marie. For outpatient follow-up. Was discharged to rehab. She was discharged from rehab to home yesterday. Patient felt he was discharged prematurely. Was discharged without oxygen and no pain medications. He went to live with his daughter. They were not told how to use oxygen. Apparently fell down and bumped his head. No loss of consciousness. As the daughter brought the patient back to the ER. Was placed in trauma to because of his respiratory status. This morning patient feeling much better. Most to go home. Wants pain medications for his foot. January 07: Patient was seen by vascular. Patient to follow-up outpatient. Discussed with ID. Not for antibiotics at the present time. Wound care to continue. The daughter wants the patient to go to rehab. international operations manager is involved. Patient eating well. Sitting up in a chair. Pain well controlled. January 08: Up in a chair. Comfortable. Oral intake fair. as per Vascular patient had wound care debridement by Dr. blue last week. Patient being scheduled for right healed surgical wound debridement tomorrow. Many boot to right foot. Relevant to head. Changed Rich[place] 5 every 6 when necessary January 09: Patient is being refused by 2 rehab places. Up in a chair. Comfortable. Pain control. Debridement was canceled because patient had breakfast. January 10: Patient completed Increased pain. Richland increased to 7.5 every 6 when necessary continue with Neurontin. Plan for debridement tomorrow. 2 places from rehab have declined the patient. Daughter is out of town till tomorrow. Hemoglobin 6.7 this morning. 1 unit PRBC ordered. January 14: I resumed care of patient today. Patient had right heel debridement on January [address] Poole. Again there is some area of black ischemia. Offloading reinforced. Patient was agitated earlier today. Received Ativan. Didn't want to eat. Spoke to case loader operator. Waiting for authorization. Elevated potassium. Lokelma added. Active Medications Hydrocodone Bitart/Acetaminophen (Hydrocodone/Apap 7.5-325mg 1 Each Tab) 1 each PO Q6HR PRN PRN Reason: Moderate Pain Last Admin: 01/13/22 21:03 Dose: 1 each Albuterol/Ipratropium (Ipratropium-Albuterol 3 Ml Neb) 3 ml INHALATION RT-Q4H [facility] Last Admin: 01/14/22 15:23 Dose: Not Given Aspirin (Aspirin 81 Mg) 81 mg PO DAILY [facility] Last Admin: 01/14/22 16:41 Dose: Not Given Atorvastatin Calcium (Atorvastatin 40 Mg Tab) 40 mg PO HS [facility] Last Admin: 01/13/22 21:03 Dose: 40 mg Budesonide (Budesonide 1 Mg/2 Ml Nebu) 1 mg INHALATION RT-BID [facility] Last Admin: 01/14/22 08:22 Dose: Not Given Bumetanide (Bumetanide 1 Mg Tab) 2 mg PO DAILY [facility] Last Admin: 01/14/22 16:41 Dose: Not Given Carvedilol (Carvedilol 12.5 Mg Tab) 12.5 mg PO BID [facility] Last Admin: 01/14/22 16:41 Dose: Not Given Collagenase (Collagenase 250 Unit/Gm Ointment 30 Gm Tube) 1 applic TOPICAL DAILY [facility]; Protocol Last Admin: 01/13/22 18:54 Dose: 1 applic Diphenhydramine HCl (Diphenhydramine 25 Mg Cap) 25 mg PO QID PRN PRN Reason: Allergic Reaction Last Admin: 01/14/22 08:23 Dose: 25 mg Gabapentin (Gabapentin 300 Mg Cap) 300 mg PO BID [facility] Last Admin: 01/14/22 16:41 Dose: Not Given Heparin Sodium (Porcine) (Heparin Sodium,Porcine/Pf 5,000 Unit/0.5 Ml Syringe) 5,000 unit SQ Q8HR [facility] Last Admin: 06/13/22 16:41 Dose: Not Given Hydralazine HCl (Hydralazine Hcl 50 Mg Tab) 100 mg PO TID [facility] Last Admin: 01/14/22 16:41 Dose: Not Given Lactated Ringer's (Lactated Ringers) 1,000 mls @ 20 mls/hr IV .Q24H [facility] Last Admin: 01/14/22 16:43 Dose: Not Given Insulin Aspart (Insulin Aspart (Novolog) 100 Unit/Ml Vial) 10 unit SQ AC-TID [facility] Last Admin: 01/14/22 16:42 Dose: Not Given Insulin Detemir (Insulin Detemir (Levemir) 100 Unit/Ml Syr) 18 unit SQ HS [facility] Last Admin: 01/13/22 21:04 Dose: 18 unit Levetiracetam (Levetiracetam 500 Mg Tab) 1,000 mg PO BID [facility] Last Admin: 01/14/22 16:41 Dose: Not Given Lidocaine HCl (Lidocaine 1% (10mg/Ml) For Iv Start) 0.1 ml INTRADERMA PER PROTOCOL PRN PRN Reason: IV Start Lorazepam (Lorazepam 2 Mg/Ml Inj) 0.5 mg IV Q6HR PRN PRN Reason: Anxiety Last Admin: 01/14/22 08:53 Dose: 0.5 mg Naloxone HCl (Naloxone 0.4 Mg/Ml 1 Ml Vial) 0.2 mg IV Q2M PRN PRN Reason: Opioid Reversal Ropinirole HCl (Ropinirole Hcl 0.25 Mg Tab) 0.5 mg PO TID [facility] Last Admin: 01/14/22 16:41 Dose: Not Given Sodium Zirconium Cyclosilicate (Sodium Zirconium Cyclosilicate 10 Gm Packet) 5 gm PO TID [facility] Tamsulosin HCl (Tamsulosin 0.4 Mg Cap.Er.24h) 0.4 mg PO DAILY [facility] Last Admin: 01/14/22 16:42 Dose: Not Given Past medical history to include: Stroke, diabetes, hypertension, left below-knee amputation, right heel wound, PAD Social history: Discharged to home yesterday from of [place], smoked 2 packs a day for 45 years up October 2021. No alcohol. . 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 Conjunctiva normal. HEENT: External appearance of nose and ears normal, oral cavity grossly normal. NECK: JVD not raised; masses not palpable. HEART: First and second heart sounds are normal; no edema. LUNGS: Respiratory rate increased; decreased breath sounds ABDOMEN: Soft, nontender, liver spleen not palpable, no masses palpable. PSYCH: Unable to assess, sleepy MUSCULOSKELETAL:No Clubbing/cyanosis;muscles-grossly intact. EXTREMITIES: Right heel necrotic wound. Dressing right lower extremity. Dry skin. Left below-knee amputation INVESTIGATIONS, reviewed in the clinical context: January 13: Potassium 5.6 BUN 43 creatinine 1.67 January 10: Blood 6.7 potassium 5.1 BUN 39 creatinine 1.7 January 07: White count 6.7 hemoglobin 7 patient is to 55 potassium 5 BUN 42 creatinine 1.6 to January 06: White count 7.7 hemoglobin 7.1 platelets 301 potassium 5.6. 44 creatinine 1.73 EKG tracing personally reviewed by me-normal sensory. Nonspecific ST-T wave changes. Chest x-ray film personally reviewed by me: Possibly chronic changes Recent admission: Carotid Doppler:Subtotal occlusion right ICA and severe stenosis left ICA December 20: Hemoglobin 7 December 19: Potassium 5.1 BUN 37 creatinine 1.81 2-D echocardiogram: EF 60 - 65% Doppler ultrasound December 10 right lower extremity: Negative for DVT Assessment and plan: -Acute hypoxic respiratory failure from COPD exacerbation Patient is unable to use his oxygen at home. Circumstances unclear. Supplemental oxygen. -Chronic encephalomalacia involving the right frontal lobe. -Subtotal occlusion right ICA and severe stenosis left ICA Follow with Dr. Marie outpatient - Acute COPD exacerbation in a previous smoker: improving DuoNeb 4 times a day. Pulmicort nebulizer twice a day. -Right heel diabetic wound negative for osteomyelitis per recent MRI.: Previous Culture positive for Acinetobacter, MRSA No need for further antibiotics per ID.. Patient had his wound debrided by Dr. blue last week and the wound care center. Debridement done on January [address] Poole -chronic hypoxic respiratory failure from COPD On home oxygen -Acute on chronic Normocytic anemia/iron deficiency anemia Received 1 unit of PRBC -Chronic kidney disease stage III likely diabetic nephropathy and hypertensive nephrosclerosis Creatinine 1.68 on Christianne 8 -Diabetes mellitus type 2, chronically on insulin: Controlled with hypoglycemia Levemir 18 units. 5 units with meals Humalog. Sliding scale. -Essential hypertension Coreg 12.5 mg twice a day hydralazine 100 mg 2 times a day -Diabetic peripheral neuropathy: Contact Neurontin 300 mg daily at bedtime -Restless leg syndrome: Requip 0.5 mg by mouth 3 times a day -Left below-knee amputation -PAD -Chronic pain. Patient seen by pain management team last admission. Increase [place] 7.5 every 6 when necessary. Continue Neurontin -Full code Sonal added. Received Ativan earlier today. Cutback Neurontin 300 mg daily at bedtime in view of kidney function. Other medications to continue. Discussed with the nurse earlier. In case loader operator. Total time spent today about 40 minutes with over 25 minutes of discussion.
[2022-01-14] MEDS: HYDROcodone/APAP 7.5-325MG 1 EACH TAB PO PRN ×2 (17:56→23:38)
[2022-01-14] MEDS: COLLAGENASE 250 UNIT/GM OINTMENT 30 GM TUBE TOPICAL SCH (18:07)
[2022-01-14] MEDS: SODIUM ZIRCONIUM CYCLOSILICATE 10 GM PACKET PO SCH ×2 (18:08→22:33)
[2022-01-14] MEDS: HYDROmorphone 0.5 MG/0.5 ML SYRINGE IVP PRN (21:00)
[2022-01-14 21:23] LABS: Glucose,Whole Blood 146 mg/dL (75-99)
[2022-01-14] MEDS: INSULIN DETEMIR (LEVEMIR) 100 UNIT/ML SYR SQ SCH (22:06)
[2022-01-14] MEDS: ATORVASTATIN 40 MG TAB PO SCH (22:09)
[2022-01-14] MEDS: SODIUM CHLORIDE 0.9% 1,000 ML IV SCH (22:47)
[2022-01-14 22:58] LABS: African American GFR (CKD) 56.1 (60.0-200.0); Anion Gap 9.7 mmol/L (10.00-18.00); BUN/Creat Ratio 24.51 Ratio (12.00-20.00); Blood Urea Nitrogen 37.5 mg/dL (9.0-27.0); Calcium 8.7 mg/dL (8.7-10.3); Non-African American GFR(CKD) 48.4 (60.0-200.0); Potassium 5.9 mmol/L (3.5-5.5)
[2022-01-15] MEDS: IPRATROPIUM-ALBUTEROL 3 ML NEB INHALATION SCH ×7 (01:00→20:29)
[2022-01-15] MEDS: HEPARIN SODIUM,PORCINE/PF 5,000 UNIT/0.5 ML SYRINGE SQ SCH ×2 (01:08→08:02)
[2022-01-15] MEDS: HYDROmorphone 0.5 MG/0.5 ML SYRINGE IVP PRN ×2 (02:22→08:02)
[2022-01-15] MEDS: LORazepam 2 MG/ML INJ IV PRN ×3 (03:03→21:58)
[2022-01-15] MEDS: HYDROcodone/APAP 7.5-325MG 1 EACH TAB PO PRN ×3 (05:09→17:23)
[2022-01-15 06:55] LABS: Glucose,Whole Blood 212 mg/dL (75-99)
--- NOTE | 2022-01-15 07:37 | P.PN ---
Subjective Progress Note Date: 01/12/22 Principal diagnosis: Right diabetic foot wound Patient is a 61-year-old male who recently did have multiple admission to this facility and was treated for right heel diabetic foot infection with underlying osteomyelitis culture positive for Enterobacter and MRSA and the patient has completed his antibiotic therapy as of 01/01/2022, patient now admitted to the hospital for possible syncopal episode and lack of home oxygen. On today's evaluation that is 01/12/2022, the patient remains to be afebrile, the patient is breathing comfortably on nasal cannula oxygen, the patient denies chest pain or cough, the patient denies abdominal pain and the patient pain to the right heel wound area is controlled Objective - Vital Signs Vital signs: Vital Signs Temp 98 F 01/12/22 08:14 Pulse 96 01/12/22 11:39 Resp 17 01/12/22 08:14 BP 148/65 01/12/22 08:14 Pulse Ox 97 01/12/22 08:14 FiO2 4 01/11/22 00:00 Intake & Output 01/11/22 01/12/22 01/12/22 18:59 06:59 18:59 Intake Total 400 240 Output Total 5 Balance 395 240 Intake: IV 400 Oral 240 Output: Estimated Blood Loss 5 Other: Voiding Method Urinal Urinal Urinal # Voids 2 - Exam GENERAL DESCRIPTION: Middle-age male lying in bed in no distress RESPIRATORY SYSTEM: Unlabored breathing , decreased breath sounds at bases HEART: S1 S2 regular rate and rhythm , ABDOMEN: Soft , no tenderness EXTREMITIES: Right heel is currently dressed no drainage on the dressing - Labs CBC & Chem 7: 01/11/22 12:50 01/14/22 14:48 Labs: Abnormal Lab Results - Last 24 Hours (Table) 01/11/22 01/11/22 01/12/22 Range/Units 17:46 20:53 06:19 POC Glucose (mg/dL) 148 H 118 H 158 H (75-99) mg/dL 01/12/22 01/12/22 Range/Units 09:25 12:02 POC Glucose (mg/dL) 200 H 157 H (75-99) mg/dL Assessment and Plan (1) Decubitus ulcer of foot Current Visit: No Status: Acute Code(s): L89.899 - PRESSURE ULCER OF OTHER SITE, UNSPECIFIED STAGE SNOMED Code(s): 2255576618 (2) Diabetic foot ulcer Current Visit: No Status: Acute Code(s): E11.621 - TYPE 2 DIABETES MELLITUS WITH FOOT ULCER; L97.509 - NON-PRESSURE CHRONIC ULCER OTH PRT UNSP FOOT W UNSP SEVERITY SNOMED Code(s): 481857974 Plan: 1patient with a chronic nonhealing wound to the right heel area and this jolie ent with underlying osteomyelitis secondary to Acinetobacter and MRSA for the patient completed more than 6 weeks of antibiotic therapy was recently discontinued patient became to the hospital with a possible syncopal episode and lack of home oxygen, patient did not have any fever white count is normal and no evidence of any significant cellulitis to the right heel wound area recommend local wound care. 2patient is status post debridement of the right heel wound completed on 01/11/2022 operative report did not mention any purulence or evidence of deep infection and no culture were done 3patient to continue local wound care with the Santyl for moist dressing daily and keep the area of pressure Time with Patient: Less than 30
--- NOTE | 2022-01-15 07:38 | P.PN ---
Subjective Progress Note Date: 01/13/22 Principal diagnosis: Right diabetic foot wound Patient is a 61-year-old male who recently did have multiple admission to this facility and was treated for right heel diabetic foot infection with underlying osteomyelitis culture positive for Enterobacter and MRSA and the patient has completed his antibiotic therapy as of 01/01/2022, patient now admitted to the hospital for possible syncopal episode and lack of home oxygen. On today's evaluation that is 01/13/2022, the patient continues to be afebrile, the patient is breathing comfortably on nasal cannula oxygen, the patient denies chest pain or cough, the patient denies abdominal pain and the patient denies any worsening pain to the right heel wound area Objective - Vital Signs Vital signs: Vital Signs Temp 97.8 F 01/13/22 14:00 Pulse 96 01/13/22 16:44 Resp 18 01/13/22 14:00 BP 163/70 01/13/22 14:00 Pulse Ox 95 01/13/22 14:00 FiO2 4 01/11/22 00:00 Intake & Output 01/12/22 01/13/22 01/13/22 18:59 06:59 18:59 Intake Total 460 Output Total 500 700 750 Balance -40 -700 -750 Intake: Oral 460 Output: Urine 500 700 750 Other: Voiding Method Urinal Urinal - Exam GENERAL DESCRIPTION: Middle-age male lying in bed in no distress RESPIRATORY SYSTEM: Unlabored breathing , decreased breath sounds at bases HEART: S1 S2 regular rate and rhythm , ABDOMEN: Soft , no tenderness EXTREMITIES: Right heel is currently dressed no drainage on the dressing - Labs CBC & Chem 7: 01/11/22 12:50 01/14/22 14:48 Labs: Abnormal Lab Results - Last 24 Hours (Table) 01/12/22 01/13/22 01/13/22 Range/Units 21:15 07:12 07:38 Potassium 5.6 H (3.5-5.1) mmol/L BUN 43 H (9-20) mg/dL Creatinine 1.67 H (0.66-1.25) mg/dL Glucose 101 H (74-99) mg/dL POC Glucose (mg/dL) 239 H 120 H (75-99) mg/dL 01/13/22 01/13/22 Range/Units 11:24 16:32 Potassium (3.5-5.1) mmol/L BUN (9-20) mg/dL Creatinine (0.66-1.25) mg/dL Glucose (74-99) mg/dL POC Glucose (mg/dL) 156 H 203 H (75-99) mg/dL Assessment and Plan (1) Decubitus ulcer of foot Current Visit: No Status: Acute Code(s): L89.899 - PRESSURE ULCER OF OTHER SITE, UNSPECIFIED STAGE SNOMED Code(s): 7063606359 (2) Diabetic foot ulcer Current Visit: No Status: Acute Code(s): E11.621 - TYPE 2 DIABETES MELLITUS WITH FOOT ULCER; L97.509 - NON-PRESSURE CHRONIC ULCER OTH PRT UNSP FOOT W UNSP SEVERITY SNOMED Code(s): 698561500 Plan: 1patient with a chronic nonhealing wound to the right heel area and this patient with underlying osteomyelitis secondary to Acinetobacter and MRSA for the patient completed more than 6 weeks of antibiotic therapy was recently discontinued patient became to the hospital with a possible syncopal episode and lack of home oxygen, patient did not have any fever white count is normal and no evidence of any significant cellulitis to the right heel wound area recommend local wound care. 2patient is status post debridement of the right heel wound completed on 01/11/2022 operative report did not mention any purulence or evidence of deep i nfection and no culture were done 3patient seemed to be slowly clinically improving, patient to continue local wound care with the Santyl for moist dressing daily and keep the area of pressure Time with Patient: Less than 30
--- NOTE | 2022-01-15 07:40 | P.PN ---
Subjective Progress Note Date: 01/14/22 Principal diagnosis: Right diabetic foot wound Patient is a 61-year-old male who recently did have multiple admission to this facility and was treated for right heel diabetic foot infection with underlying osteomyelitis culture positive for Enterobacter and MRSA and the patient has completed his antibiotic therapy as of 01/01/2022, patient now admitted to the hospital for possible syncopal episode and lack of home oxygen. On today's evaluation that is 01/14/2022, the patient is afebrile, the patient is breathing comfortably on nasal cannula oxygen, the patient is sleepy and lethargic today and did not provide any history no vomiting or diarrhea reported by the sister Objective - Vital Signs Vital signs: Vital Signs Temp 99.3 F 01/14/22 08:00 Pulse 108 H 01/14/22 08:00 Resp 18 01/14/22 08:00 BP 184/74 01/14/22 08:00 Pulse Ox 93 L 01/14/22 08:00 FiO2 4 01/11/22 00:00 Intake & Output 01/13/22 01/14/22 01/14/22 18:59 06:59 18:59 Output Total 750 100 Balance -750 -100 Output: Urine 750 100 Other: Voiding Method Urinal Urinal # Voids 2 - Exam GENERAL DESCRIPTION: Middle-age male lying in bed in no distress RESPIRATORY SYSTEM: Unlabored breathing , decreased breath sounds at bases HEART: S1 S2 regular rate and rhythm , ABDOMEN: Soft , no tenderness EXTREMITIES: Right heel is currently dressed no drainage on the dressing - Labs CBC & Chem 7: 01/11/22 12:50 01/14/22 14:48 Labs: Abnormal Lab Results - Last 24 Hours (Table) 01/13/22 01/13/22 01/14/22 Range/Units 16:32 21:03 06:53 POC Glucose (mg/dL) 203 H 172 H 139 H (75-99) mg/dL Assessment and Plan (1) Decubitus ulcer of foot Current Visit: No Status: Acute Code(s): L89.899 - PRESSURE ULCER OF OTHER SITE, UNSPECIFIED STAGE SNOMED Code(s): 5601328464 (2) Diabetic foot ulcer Current Visit: No Status: Acute Code(s): E11.621 - TYPE 2 DIABETES MELLITUS WITH FOOT ULCER; L97.509 - NON-PRESSURE CHRONIC ULCER OTH PRT UNSP FOOT W UNSP SEVERITY SNOMED Code(s): 427730855 Plan: 1patient with a chronic nonhealing wound to the right heel area and this patien t with underlying osteomyelitis secondary to Acinetobacter and MRSA for the patient completed more than 6 weeks of antibiotic therapy was recently discontinued patient became to the hospital with a possible syncopal episode and lack of home oxygen, patient did not have any fever white count is normal and no evidence of any significant cellulitis to the right heel wound area recommend local wound care. 2patient is status post debridement of the right heel wound completed on 01/11/2022 operative report did not mention any purulence or evidence of deep infection and no culture were done 3patient has shown some clinical improvement, patient to continue local wound care with the Santyl for moist dressing daily and keep the area of pressure and monitor close off antibiotics
[2022-01-15] MEDS: carvediloL 12.5 MG TAB PO SCH ×2 (08:02→21:18)
[2022-01-15] MEDS: ASPIRIN 81 MG PO SCH (08:02)
[2022-01-15] MEDS: hydrALAZINE HCL 50 MG TAB PO SCH ×3 (08:02→21:12)
[2022-01-15] MEDS: TAMSULOSIN 0.4 MG CAP.ER.24H PO SCH (08:02)
[2022-01-15] MEDS: SODIUM ZIRCONIUM CYCLOSILICATE 10 GM PACKET PO SCH ×3 (08:03→21:18)
[2022-01-15] MEDS: INSULIN ASPART (NovoLOG) 100 UNIT/ML VIAL SQ SCH ×3 (08:03→17:25)
[2022-01-15] MEDS: levETIRAcetam 500 MG TAB PO SCH ×2 (08:04→21:11)
[2022-01-15] MEDS: BUMETANIDE 1 MG TAB PO SCH (08:04)
[2022-01-15] MEDS: COLLAGENASE 250 UNIT/GM OINTMENT 30 GM TUBE TOPICAL SCH (08:05)
[2022-01-15] MEDS: BUDESONIDE 1 MG/2 ML NEBU INHALATION SCH ×2 (08:23→20:29)
[2022-01-15 11:32] LABS: Glucose,Whole Blood 92 mg/dL (75-99)
[2022-01-15] MEDS: LACTATED RINGERS 1,000 ML IV SCH (14:28)
[2022-01-15 15:41] LABS: African American GFR (CKD) 56 (>60 ml/min/1.73 sqM); Anion Gap 5 mmol/L; Blood Urea Nitrogen 40 mg/dL (9-20); Calcium 8.4 mg/dL (8.4-10.2); Carbon Dioxide 29 mmol/L (22-30); Chloride 108 mmol/L (98-107); Glucose 140 mg/dL (74-99); Non-African American GFR(CKD) 48 (>60 ml/min/1.73 sqM); Potassium 5.5 mmol/L (3.5-5.1); Sodium 142 mmol/L (137-145)
--- NOTE | 2022-01-15 15:59 | P.PN ---
Progress Note - Text Progress Note Date: 01/15/22 Chief Complaint: Hypoxic This is a 61-year-old patient, follows with Dr. Smalls Chronic stable medical conditions include diabetes, hypertension, left below- knee amputation. admitted to the hospital on 11/09/2021 with a right foot nonhealing ulcer. Had been a smoker up to recently. Wound on right heel, wound cultures were positive for Acinetobacter and MRSA. MRI was negative for osteomyelitis. Seen by pain services for chronic pain. Neuropathic pain. Admitted with acute COPD exacerbation, pneumonia, right heel wound. IV Unasyn daptomycin continued. Bronchodilators. Steroids. For neuropathic pain , Neurontin was increased. seen by pain services. Patient was discharged to rehab Was in hospital and not a part of December. Discharged on December 25. Wound on the right heel. Seen by vascular team Dr. Marie. For outpatient follow-up. Was discharged to rehab. She was discharged from rehab to home yesterday. Patient felt he was discharged prematurely. Was discharged without oxygen and no pain medications. He went to live with his daughter. They were not told how to use oxygen. Apparently fell down and bumped his head. No loss of consciousness. As the daughter brought the patient back to the ER. Was placed in trauma to because of his respiratory status. This morning patient feeling much better. Most to go home. Wants pain medications for his foot. January 07: Patient was seen by vascular. Patient to follow-up outpatient. Discussed with ID. Not for antibiotics at the present time. Wound care to continue. The daughter wants the patient to go to rehab. sales engineering manager is involved. Patient eating well. Sitting up in a chair. Pain well controlled. January 08: Up in a chair. Comfortable. Oral intake fair. as per Vascular patient had wound care debridement by Dr. blue last week. Patient being scheduled for right healed surgical wound debridement tomorrow. Many boot to right foot. Relevant to head. Changed Jetmore 5 every 6 when necessary January 09: Patient is being refused by 2 rehab places. Up in a chair. Comfortable. Pain control. Debridement was canceled because patient had breakfast. January 10: Patient completed Increased pain. Jetmore increased to 7.5 every 6 when necessary continue with Neurontin. Plan for debridement tomorrow. 2 places from rehab have declined the patient. Daughter is out of town till tomorrow. Hemoglobin 6.7 this morning. 1 unit PRBC ordered. January 14: I resumed care of patient today. Patient had right heel debridement on January [address] Poole. Again there is some area of black ischemia. Offloading reinforced. Patient was agitated earlier today. Received Ativan. Didn't want to eat. Spoke to employment case manager. Waiting for authorization. Elevated potassium. Lokelma added. January 15: Patient doing much better today. Communicating. Had his breakfast. IV Dilaudid discontinued. Pain consultation done. Discussed with employment case manager. Pending authorization. Santyl wound dressing. With offloading. Active Medications Hydrocodone Bitart/Acetaminophen (Hydrocodone/Apap 7.5-325mg 1 Each Tab) 1 each PO Q6HR PRN PRN Reason: Moderate Pain Last Admin: 01/15/22 11:24 Dose: 1 each Albuterol/Ipratropium (Ipratropium-Albuterol 3 Ml Neb) 3 ml INHALATION RT-Q4H [facility] Last Admin: 01/15/22 15:49 Dose: Not Given Aspirin (Aspirin 81 Mg) 81 mg PO DAILY [facility] Last Admin: 01/15/22 08:02 Dose: 81 mg Atorvastatin Calcium (Atorvastatin 40 Mg Tab) 40 mg PO HS [facility] Last Admin: 01/14/22 22:09 Dose: 40 mg Budesonide (Budesonide 1 Mg/2 Ml Nebu) 1 mg INHALATION RT-BID [facility] Last Admin: 01/15/22 08:23 Dose: 1 mg Bumetanide (Bumetanide 1 Mg Tab) 2 mg PO DAILY [facility] Last Admin: 01/15/22 08:04 Dose: 2 mg Carvedilol (Carvedilol 12.5 Mg Tab) 12.5 mg PO BID [facility] Last Admin: 01/15/22 08:02 Dose: 12.5 mg Collagenase (Collagenase 250 Unit/Gm Ointment 30 Gm Tube) 1 applic TOPICAL DAILY [facility]; Protocol Last Admin: 01/15/22 08:05 Dose: Not Given Diphenhydramine HCl (Diphenhydramine 25 Mg Cap) 25 mg PO QID PRN PRN Reason: Allergic Reaction Last Admin: 01/14/22 20:54 Dose: 25 mg Gabapentin (Gabapentin 300 Mg Cap) 300 mg PO [facility] Heparin Sodium (Porcine) (Heparin Sodium,Porcine/Pf 5,000 Unit/0.5 Ml Syringe) 5,000 unit SQ Q8HR [facility] Last Admin: 01/15/22 08:02 Dose: Not Given Hydralazine HCl (Hydralazine Hcl 50 Mg Tab) 100 mg PO TID [facility] Last Admin: 01/15/22 08:02 Dose: 100 mg Lactated Ringer's (Lactated Ringers) 1,000 mls @ 20 mls/hr IV .Q24H [facility] Last Admin: 01/15/22 14:28 Dose: Not Given Insulin Aspart (Insulin Aspart (Novolog) 100 Unit/Ml Vial) 10 unit SQ AC-TID [facility] Last Admin: 01/15/22 11:30 Dose: Not Given Insulin Detemir (Insulin Detemir (Levemir) 100 Unit/Ml Syr) 18 unit SQ HS [facility] Last Admin: 01/14/22 22:06 Dose: Not Given Levetiracetam (Levetiracetam 500 Mg Tab) 1,000 mg PO BID [facility] Last Admin: 01/15/22 08:04 Dose: 1,000 mg Lidocaine HCl (Lidocaine 1% (10mg/Ml) For Iv Start) 0.1 ml INTRADERMA PER PROTOCOL PRN PRN Reason: IV Start Lorazepam (Lorazepam 2 Mg/Ml Inj) 0.5 mg IV Q6HR PRN PRN Reason: Anxiety Last Admin: 01/15/22 14:50 Dose: 0.5 mg Naloxone HCl (Naloxone 0.4 Mg/Ml 1 Ml Vial) 0.2 mg IV Q2M PRN PRN Reason: Opioid Reversal Ropinirole HCl (Ropinirole Hcl 0.25 Mg Tab) 0.5 mg PO TID [facility] Last Admin: 01/15/22 08:03 Dose: 0.5 mg Sodium Zirconium Cyclosilicate (Sodium Zirconium Cyclosilicate 10 Gm Packet) 10 gm PO TID [facility] Tamsulosin HCl (Tamsulosin 0.4 Mg Cap.Er.24h) 0.4 mg PO DAILY [facility] Last Admin: 01/15/22 08:02 Dose: 0.4 mg Past medical history to include: Stroke, diabetes, hypertension, left below-knee amputation, right heel wound, PAD Social history: Discharged to home yesterday from of [place], smoked 2 packs a day for 45 years up October 2021. No alcohol. . 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 Conjunctiva normal. HEENT: External appearance of nose and ears normal, oral cavity grossly normal. NECK: JVD not raised; masses not palpable. HEART: First and second heart sounds are normal; no edema. LUNGS: Respiratory rate increased; decreased breath sounds ABDOMEN: Soft, nontender, liver spleen not palpable, no masses palpable. PSYCH: Answering questions appropriately MUSCULOSKELETAL:No Clubbing/cyanosis;muscles-grossly intact. EXTREMITIES: Right heel necrotic wound. Dressing right lower extremity. Dry skin. Left below-knee amputation INVESTIGATIONS, reviewed in the clinical context: January 15: Potassium 5.5. BUN 40 creatinine 1.5 for January 13: Potassium 5.6 BUN 43 creatinine 1.67 January 10: Blood 6.7 potassium 5.1 BUN 39 creatinine 1.7 January 07: White count 6.7 hemoglobin 7 patient is to 55 potassium 5 BUN 42 creatinine 1.6 to January 06: White count 7.7 hemoglobin 7.1 platelets 301 potassium 5.6. 44 creatinine 1.73 EKG tracing personally reviewed by me-normal sensory. Nonspecific ST-T wave changes. Chest x-ray film personally reviewed by me: Possibly chronic changes Recent admission: Carotid Doppler:Subtotal occlusion right ICA and severe stenosis left ICA December 20: Hemoglobin 7 December 19: Potassium 5.1 BUN 37 creatinine 1.81 2-D echocardiogram: EF 60 - 65% Doppler ultrasound December 10 right lower extremity: Negative for DVT Assessment and plan: -Acute hypoxic respiratory failure from COPD exacerbation: Better Patient is unable to use his oxygen at home. Circumstances unclear. Supplemental oxygen. -Chronic encephalomalacia involving the right frontal lobe. -Subtotal occlusion right ICA and severe stenosis left ICA Follow with Dr. Marie outpatient - Acute COPD exacerbation in a previous smoker: improving DuoNeb 4 times a day. Pulmicort nebulizer twice a day. -Right heel diabetic wound negative for osteomyelitis per recent MRI.: Previous Culture positive for Acinetobacter, MRSA No need for further antibiotics per ID.. Patient had his wound debrided by Dr. blue last week and the wound care center. Debridement done on January [address] Poole.Santyl wound care with offloading -chronic hypoxic respiratory failure from COPD On home oxygen -Acute on chronic Normocytic anemia/iron deficiency anemia Received 1 unit of PRBC -Chronic kidney disease stage III likely diabetic nephropathy and hypertensive nephrosclerosis Creatinine 1.68 on November 09 -Diabetes mellitus type 2, chronically on insulin: Controlled with hypoglycemia Levemir 18 units. 5 units with meals Humalog. Sliding scale. -Essential hypertension Coreg 12.5 mg twice a day hydralazine 100 mg 2 times a day -Diabetic peripheral neuropathy: Contact Neurontin 300 mg daily at bedtime -Restless leg syndrome: Requip 0.5 mg by mouth 3 times a day -Left below-knee amputation -PAD -Chronic pain. Patient seen by pain management team last admission. Increase Jetmore 7.5 every 6 when necessary. Continue Neurontin -Hyperkalemia, slow to respond DC LR. DC subcu heparin. Increase Lokelma 10 mg 3 times a day -Full code Increase Lokelma to 10 mg 3 times a day. DC LR and subcu heparin. DC Dilaudid. Pain management consulted. Pending discharge to rehab.
[2022-01-15 17:13] LABS: Glucose,Whole Blood 168 mg/dL (75-99)
[2022-01-15] MEDS: SODIUM CHLORIDE 0.9% 500 ML 500 ML IV SCH (17:21)
[2022-01-15 20:18] LABS: Glucose,Whole Blood 197 mg/dL (75-99)
[2022-01-15] MEDS: ATORVASTATIN 40 MG TAB PO SCH (21:12)
[2022-01-15] MEDS: GABAPENTIN 300 MG CAP PO SCH (21:12)
[2022-01-15] MEDS: INSULIN DETEMIR (LEVEMIR) 100 UNIT/ML SYR SQ SCH (21:18)
--- NOTE | 2022-01-15 22:44 | P.PAINCN ---
History of Present Illness - Reason for Consult Consult date: 01/15/22 - History of Present Illness This is 61 years old male with a history of right foot infection with underlying ,Diabetic foot ulcer , and osteomyelitis which required him to have multiple surgical interventions on his wound, and he had multiple debridement procedure to treat his infection and osteomyelitis, patient had chronic pain syndrome, secondary to his wound infection and the debridement, patient being treated with different kind of pain medication, and since admission his currently on Neurontin 300 mg daily at bedtime and [place] 7.5/325 every 6 hours,, and Dilaudid 0.5 mg every 4 hours when necessary for breakthrough pain, patient reported that his pain is well controlled with the current regimen 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), MRSA, VRE Year Discovered:: 11/30/21 VRE; 11/11/21-MRSA MDRO Source:: Blood-VRE; Right heel-MRSA & MDRO Additional Past Surgical History / Comment(s): BKA right leg Past Anesthesia/Blood Transfusion Reactions: No Reported Reaction Past Psychological History: No Psychological Hx Reported Smoking Status: Current every day smoker Past Alcohol Use History: None Reported Past Drug Use History: None Reported Medications and Allergies Home Medications Medication Instructions Recorded Confirmed Type Carvedilol [Coreg] 12.5 mg PO BID 11/09/21 01/05/22 History Ketoconazole 2% Shampoo [Nizoral] 1 applic TOPICAL DIRECTED PRN 11/09/21 01/05/22 History Ticagrelor [Brilinta] 90 mg PO BID 11/09/21 01/05/22 History Ipratropium-Albuterol Nebulize 3 ml INHALATION RT-Q8H 12/18/21 01/05/22 History [Duoneb 0.5 mg-3 mg/3 ml Soln] levETIRAcetam [Keppra] 1,000 mg PO BID 12/18/21 01/05/22 History Aspirin 81 mg PO DAILY 12/21/21 01/05/22 Rx Collagenase [Santyl Ointment] 1 applic TOPICAL DAILY 12/21/21 01/05/22 Rx hydrALAZINE HCL [Apresoline] 100 mg PO TID #0 12/21/21 01/05/22 Rx Atorvastatin [Lipitor] 40 mg PO HS tab 12/25/21 01/05/22 Rx Bumetanide [BUMEX] 2 mg PO DAILY 01/05/22 01/05/22 History Tamsulosin [Flomax] 0.4 mg PO DAILY 01/05/22 01/05/22 History rOPINIRole HCL [Requip] 0.5 mg PO TID 01/05/22 01/05/22 History Gabapentin [Neurontin] 300 mg PO BID #60 cap 01/08/22 Rx HYDROcodone/APAP 5-325MG [[place] 1 tab PO Q6HR PRN 3 Days #12 tab 01/08/22 Rx 5-325] Insulin Detemir (Levemir) [Levemir] 22 unit SQ HS #0 each 01/08/22 01/05/22 Rx Insulin Lispro [humaLOG Kwikpen] 8 units SQ AC-TID #0 01/08/22 01/05/22 Rx Allergies Allergy/AdvReac Type Severity Reaction Status Date / Time ampicillin [From Unasyn] Allergy Rash/Hives Verified 01/05/22 20:37 sulbactam [From Unasyn] Allergy Rash/Hives Verified 01/05/22 20:37 Physical Exam Vitals: Vital Signs Temp Pulse Pulse Resp BP Pulse Ox 01/15/22 19:41 97.9 F 95 18 166/80 94 L 01/15/22 14:00 98.8 F 86 18 130/69 97 01/15/22 12:06 82 01/15/22 11:57 76 01/15/22 08:36 83 01/15/22 08:24 86 99 01/15/22 08:00 98.4 F 95 18 149/74 95 01/15/22 02:00 99.5 F 89 23 145/70 93 L Intake and Output 01/15/22 01/15/22 01/15/22 06:59 14:59 22:59 Output Total 300 800 Balance -300 -800 Output: Urine 300 800 Other: Voiding Method Urinal # Voids 2 # Bowel Movements 2 Physical Examinations : -Constitutiona : Cooperative , not in acute distress . -HEENT : nech : supple , no Lymphadenopathy , normal thyroid size . : eyes : no ptosis , no icterus, no photophobia . - neurologic : Cranial nerve II to XII intact , no focal neurological deffecit . -psychatric : alert , oriented X 3 , appropriate affect , intact judgment and insight . -Lymphatic : no Lymphadenopathy . - musculoskeltal : Patient complaining of right lower extremity pain in the area of the debridement Results CBC & Chem 7: 01/11/22 12:50 01/15/22 14:36 Labs: Abnormal Lab Results - Last 24 Hours (Table) 01/14/22 01/15/22 01/15/22 Range/Units 14:48 06:51 14:36 Potassium 5.9 H 5.5 H (3.5-5.5) mmol/L Chloride 108 H (98-107) mmol/L Anion Gap 9.70 L (10.00-18.00) mmol/L BUN 37.5 H 40 H (9.0-27.0) mg/dL Creatinine 1.54 H (0.66-1.25) mg/dL Est GFR (CKD-EPI)AfAm 56.1 L (60.0-200.0) Est GFR (CKD-EPI)NonAf 48.4 L (60.0-200.0) BUN/Creatinine Ratio 24.51 H (12.00-20.00) Ratio Glucose 140 H (74-99) mg/dL POC Glucose (mg/dL) 212 H (75-99) mg/dL 01/15/22 01/15/22 Range/Units 17:08 20:16 Potassium (3.5-5.5) mmol/L Chloride (98-107) mmol/L Anion Gap (10.00-18.00) mmol/L BUN (9.0-27.0) mg/dL Creatinine (0.66-1.25) mg/dL Est GFR (CKD-EPI)AfAm (60.0-200.0) Est GFR (CKD-EPI)NonAf (60.0-200.0) BUN/Creatinine Ratio (12.00-20.00) Ratio Glucose (74-99) mg/dL POC Glucose (mg/dL) 168 H 197 H (75-99) mg/dL Assessment and Plan Plan: Assessment and plan=1-acute on chronic lower extremity pain secondary to osteomyelitis , and nonhealing foot ulcer, Patient reported that the current regimen of pain medication helping him to control his pain. Recommend to continue current medication Neuro ntin 300 mg daily at bedtime, and can be increased to BID if needed continue [place] 7.5/325 every 6 hours when necessary, patient doing well on the current regimen, and he denies any side effects. Time with Patient: Less than 30 PQRS Measure Charge Sheet - Pain Location Generalized Non-Pharmacological Interventions: Darkened Room, Distraction Pharmacological Interventions: Discuss Pain Med Options Foot Non-Pharmacological Interventions: Darkened Room, Environmental Control, Position/Reposition, Reduce Environmental Stimuli Pharmacological Interventions: Discuss Pain Med Options, PRN Medication Pain Comment: pt non cooperative with care, will not tell me if he is in paim or not PQRS Narrative: Do You Want the Pneumonia Vaccine Up to Date Vaccine AT THIS TIME? Blood Pressure [Left Arm] 166/80 Blood Pressure [Right Arm] 133/67 Blood Pressure 132/64 Pain Intensity [Foot] 9 Pain Intensity [Generalized] 10 Pain Intensity 10 Pain Scale Used [Foot] STATES "I HURT" Pain Scale Used [Generalized] Numeric (1 - 10) Pain Scale Used Numeric (1 - 10) Scale Used Numeric (1 - 10) Home Medications: Ambulatory Orders Carvedilol [Coreg] 12.5 mg PO BID 11/09/21 Ketoconazole 2% Shampoo [Nizoral] 1 applic TOPICAL DIRECTED PRN 11/09/21 Ticagrelor [Brilinta] 90 mg PO BID 11/09/21 Ipratropium-Albuterol Nebulize [Duoneb 0.5 mg-3 mg/3 ml Soln] 3 ml INHALATION RT-Q8H 12/18/21 levETIRAcetam [Keppra] 1,000 mg PO BID 12/18/21 Aspirin 81 mg PO DAILY 12/21/21 Collagenase [Santyl Ointment] 1 applic TOPICAL DAILY 12/21/21 hydrALAZINE HCL [Apresoline] 100 mg PO TID #0 12/21/21 Atorvastatin [Lipitor] 40 mg PO HS tab 12/25/21 Bumetanide [BUMEX] 2 mg PO DAILY 01/05/22 Tamsulosin [Flomax] 0.4 mg PO DAILY 01/05/22 rOPINIRole HCL [Requip] 0.5 mg PO TID 01/05/22 Gabapentin [Neurontin] 300 mg PO BID #60 cap 01/08/22 HYDROcodone/APAP 5-325MG [[place] 5-325] 1 tab PO Q6HR PRN 3 Days #12 tab 01/08/22 Insulin Detemir (Levemir) [Levemir] 22 unit SQ HS #0 each 01/08/22 Insulin Lispro [humaLOG Kwikpen] 8 units SQ AC-TID #0 01/08/22
[2022-01-16] MEDS: HYDROcodone/APAP 7.5-325MG 1 EACH TAB PO PRN ×4 (01:11→21:29)
[2022-01-16] MEDS: LORazepam 2 MG/ML INJ IV PRN ×4 (03:13→21:21)
[2022-01-16 07:34] LABS: Glucose,Whole Blood 108 mg/dL (75-99)
[2022-01-16] MEDS: INSULIN ASPART (NovoLOG) 100 UNIT/ML VIAL SQ SCH ×4 (08:10→17:19)
[2022-01-16] MEDS: ASPIRIN 81 MG PO SCH (08:10)
[2022-01-16] MEDS: diphenhydrAMINE 25 MG CAP PO PRN ×3 (08:11→21:29)
[2022-01-16] MEDS: levETIRAcetam 500 MG TAB PO SCH ×2 (08:11→22:09)
[2022-01-16] MEDS: hydrALAZINE HCL 50 MG TAB PO SCH ×3 (08:11→21:58)
[2022-01-16] MEDS: TAMSULOSIN 0.4 MG CAP.ER.24H PO SCH (08:11)
[2022-01-16] MEDS: carvediloL 12.5 MG TAB PO SCH ×2 (08:11→21:58)
[2022-01-16] MEDS: BUMETANIDE 1 MG TAB PO SCH (08:11)
[2022-01-16] MEDS: ENOXAPARIN 40 MG/0.4 ML SYRINGE SQ SCH (08:12)
[2022-01-16] MEDS: SODIUM ZIRCONIUM CYCLOSILICATE 10 GM PACKET PO SCH ×3 (08:12→21:59)
[2022-01-16] MEDS: COLLAGENASE 250 UNIT/GM OINTMENT 30 GM TUBE TOPICAL SCH (08:18)
[2022-01-16] MEDS: BUDESONIDE 1 MG/2 ML NEBU INHALATION SCH ×2 (08:59→20:06)
[2022-01-16] MEDS: IPRATROPIUM-ALBUTEROL 3 ML NEB INHALATION SCH ×4 (08:59→20:06)
[2022-01-16 09:50] LABS: African American GFR (CKD) 61 (>60 ml/min/1.73 sqM); Anion Gap 5 mmol/L; Blood Urea Nitrogen 34 mg/dL (9-20); Calcium 8.5 mg/dL (8.4-10.2); Carbon Dioxide 29 mmol/L (22-30); Chloride 110 mmol/L (98-107); Glucose 129 mg/dL (74-99); Non-African American GFR(CKD) 53 (>60 ml/min/1.73 sqM); Potassium 5.1 mmol/L (3.5-5.1); Sodium 144 mmol/L (137-145)
[2022-01-16 11:49] LABS: Glucose,Whole Blood 147 mg/dL (75-99)
[2022-01-16] MEDS: SODIUM CHLORIDE 0.9% 500 ML 500 ML IV SCH (14:59)
--- NOTE | 2022-01-16 15:21 | P.PN ---
Progress Note - Text Progress Note Date: 01/16/22 Chief Complaint: Hypoxic This is a 61-year-old patient, follows with Dr. Smalls Chronic stable medical conditions include diabetes, hypertension, left below- knee amputation. admitted to the hospital on 11/09/2021 with a right foot nonhealing ulcer. Had been a smoker up to recently. Wound on right heel, wound cultures were positive for Acinetobacter and MRSA. MRI was negative for osteomyelitis. Seen by pain services for chronic pain. Neuropathic pain. Admitted with acute COPD exacerbation, pneumonia, right heel wound. IV Unasyn daptomycin continued. Bronchodilators. Steroids. For neuropathic pain , Neurontin was increased. seen by pain services. Patient was discharged to rehab Was in hospital and not a part of December. Discharged on December 25. Wound on the right heel. Seen by vascular team Dr. Marie. For outpatient follow-up. Was discharged to rehab. She was discharged from rehab to home yesterday. Patient felt he was discharged prematurely. Was discharged without oxygen and no pain medications. He went to live with his daughter. They were not told how to use oxygen. Apparently fell down and bumped his head. No loss of consciousness. As the daughter brought the patient back to the ER. Was placed in trauma to because of his respiratory status. This morning patient feeling much better. Most to go home. Wants pain medications for his foot. January 07: Patient was seen by vascular. Patient to follow-up outpatient. Discussed with ID. Not for antibiotics at the present time. Wound care to continue. The daughter wants the patient to go to rehab. government sales manager is involved. Patient eating well. Sitting up in a chair. Pain well controlled. January 08: Up in a chair. Comfortable. Oral intake fair. as per Vascular patient had wound care debridement by Dr. blue last week. Patient being scheduled for right healed surgical wound debridement tomorrow. Many boot to right foot. Relevant to head. Changed Tamarack 5 every 6 when necessary January 09: Patient is being refused by 2 rehab places. Up in a chair. Comfortable. Pain control. Debridement was canceled because patient had breakfast. January 10: Patient completed Increased pain. Tamarack increased to 7.5 every 6 when necessary continue with Neurontin. Plan for debridement tomorrow. 2 places from rehab have declined the patient. Daughter is out of town till tomorrow. Hemoglobin 6.7 this morning. 1 unit PRBC ordered. January 14: I resumed care of patient today. Patient had right heel debridement on January [address] Poole. Again there is some area of black ischemia. Offloading reinforced. Patient was agitated earlier today. Received Ativan. Didn't want to eat. Spoke to case management manager. Waiting for authorization. Elevated potassium. Lokelma added. January 15: Patient doing much better today. Communicating. Had his breakfast. IV Dilaudid discontinued. Pain consultation done. Discussed with case management manager. Pending authorization. Santyl wound dressing. With offloading. January 16: Patient is pending authorization. Oral intake variable. Seen by pain management team. Continue on current medication. Active Medications Hydrocodone Bitart/Acetaminophen (Hydrocodone/Apap 7.5-325mg 1 Each Tab) 1 each PO Q6HR PRN PRN Reason: Moderate Pain Last Admin: 01/16/22 14:55 Dose: 1 each Albuterol/Ipratropium (Ipratropium-Albuterol 3 Ml Neb) 3 ml INHALATION RT-QID [facility] Last Admin: 01/16/22 12:11 Dose: Not Given Aspirin (Aspirin 81 Mg) 81 mg PO DAILY [facility] Last Admin: 01/16/22 08:10 Dose: 81 mg Atorvastatin Calcium (Atorvastatin 40 Mg Tab) 40 mg PO HS [facility] Last Admin: 01/15/22 21:12 Dose: 40 mg Budesonide (Budesonide 1 Mg/2 Ml Nebu) 1 mg INHALATION RT-BID [facility] Last Admin: 01/16/22 08:59 Dose: Not Given Bumetanide (Bumetanide 1 Mg Tab) 2 mg PO DAILY [facility] Last Admin: 01/16/22 08:11 Dose: 2 mg Carvedilol (Carvedilol 12.5 Mg Tab) 12.5 mg PO BID [facility] Last Admin: 01/16/22 08:11 Dose: 12.5 mg Collagenase (Collagenase 250 Unit/Gm Ointment 30 Gm Tube) 1 applic TOPICAL DAILY [facility]; Protocol Last Admin: 01/16/22 08:18 Dose: Not Given Diphenhydramine HCl (Diphenhydramine 25 Mg Cap) 25 mg PO QID PRN PRN Reason: Allergic Reaction Last Admin: 01/16/22 14:55 Dose: 25 mg Enoxaparin Sodium (Enoxaparin 40 Mg/0.4 Ml Syringe) 40 mg SQ DAILY [facility] Last Admin: 01/16/22 08:12 Dose: Not Given Gabapentin (Gabapentin 300 Mg Cap) 300 mg PO [facility] Last Admin: 01/15/22 21:12 Dose: 300 mg Hydralazine HCl (Hydralazine Hcl 50 Mg Tab) 100 mg PO TID [facility] Last Admin: 01/16/22 15:08 Dose: 100 mg Sodium Chloride (Saline 0.9%) 500 mls @ 10 mls/hr IV .Q24H [facility] Last Admin: 01/16/22 14:59 Dose: Not Given Insulin Aspart (Insulin Aspart (Novolog) 100 Unit/Ml Vial) 10 unit SQ AC-TID [facility] Last Admin: 01/16/22 12:17 Dose: Not Given Insulin Detemir (Insulin Detemir (Levemir) 100 Unit/Ml Syr) 18 unit SQ [facility] Last Admin: 01/15/22 21:18 Dose: 18 unit Levetiracetam (Levetiracetam 500 Mg Tab) 1,000 mg PO BID [facility] Last Admin: 01/16/22 08:11 Dose: 1,000 mg Lidocaine HCl (Lidocaine 1% (10mg/Ml) For Iv Start) 0.1 ml INTRADERMA PER PROTOCOL PRN PRN Reason: IV Start Lorazepam (Lorazepam 2 Mg/Ml Inj) 0.5 mg IV Q6HR PRN PRN Reason: Anxiety Last Admin: 01/16/22 14:55 Dose: 0.5 mg Naloxone HCl (Naloxone 0.4 Mg/Ml 1 Ml Vial) 0.2 mg IV Q2M PRN PRN Reason: Opioid Reversal Ropinirole HCl (Ropinirole Hcl 0.25 Mg Tab) 0.5 mg PO TID [facility] Last Admin: 01/16/22 15:08 Dose: 0.5 mg Sodium Zirconium Cyclosilicate (Sodium Zirconium Cyclosilicate 10 Gm Packet) 10 gm PO TID [facility] Last Admin: 01/16/22 15:08 Dose: 10 gm Tamsulosin HCl (Tamsulosin 0.4 Mg Cap.Er.24h) 0.4 mg PO DAILY [facility] Last Admin: 01/16/22 08:11 Dose: 0.4 mg Past medical history to include: Stroke, diabetes, hypertension, left below-knee amputation, right heel wound, PAD Social history: Discharged to home yesterday from of [facility], smoked 2 packs a day for 45 years up October 2021. No alcohol. . 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 Conjunctiva normal. HEENT: External appearance of nose and ears normal, oral cavity grossly normal. NECK: JVD not raised; masses not palpable. HEART: First and second heart sounds are normal; no edema. LUNGS: Respiratory rate increased; decreased breath sounds ABDOMEN: Soft, nontender, liver spleen not palpable, no masses palpable. PSYCH: Unable to assess, sleepy MUSCULOSKELETAL:No Clubbing/cyanosis;muscles-grossly intact. EXTREMITIES: Right heel necrotic wound. Dressing right lower extremity. Dry skin. Left below-knee amputation INVESTIGATIONS, reviewed in the clinical context: January 16: Potassium 5.1 BUN 34 creatinine 1.43 January 06: White count 7.7 hemoglobin 7.1 platelets 301 potassium 5.6. 44 creatinine 1.73 EKG tracing personally reviewed by me-normal sensory. Nonspecific ST-T wave changes. Chest x-ray film personally reviewed by me: Possibly chronic changes Recent admission: Carotid Doppler:Subtotal occlusion right ICA and severe stenosis left ICA December 20: Hemoglobin 7 December 19: Potassium 5.1 BUN 37 creatinine 1.81 2-D echocardiogram: EF 60 - 65% Doppler ultrasound December 10 right lower extremity: Negative for DVT Assessment and plan: -Acute hypoxic respiratory failure from COPD exacerbation: Better Patient is unable to use his oxygen at home. Circumstances unclear. Supplemental oxygen. -Chronic encephalomalacia involving the right frontal lobe. -Subtotal occlusion right ICA and severe stenosis left ICA Follow with Dr. Marie outpatient - Acute COPD exacerbation in a previous smoker: improving DuoNeb 4 times a day. Pulmicort nebulizer twice a day. -Right heel diabetic wound negative for osteomyelitis per recent MRI.: Previous Culture positive for Acinetobacter, MRSA No need for further antibiotics per ID.. Patient had his wound debrided by Dr. blue last week and the wound care center. [facility] [address] [facility]loading -chronic hypoxic respiratory failure from COPD On home oxygen -Acute on chronic Normocytic anemia/iron deficiency anemia Received 1 unit of PRBC -Chronic kidney disease stage III likely diabetic nephropathy and hypertensive nephrosclerosis Creatinine 1.68 on November 09 -Diabetes mellitus type 2, chronically on insulin: Controlled with hypoglycemia Levemir 18 units. 5 units with meals Humalog. Sliding scale. -Essential hypertension Coreg 12.5 mg twice a day hydralazine 100 mg 2 times a day -Diabetic peripheral neuropathy: Contact Neurontin 300 mg daily at bedtime -Restless leg syndrome: Requip 0.5 mg by mouth 3 times a day -Left below-knee amputation -PAD -Chronic pain. Patient seen by pain management team last admission. Increase Tamarack 7.5 every 6 when necessary. Continue Neurontin -Hyperkalemia, Lokelma 10 mg 3 times a day -Full code Lokelma to 10 mg 3 times a day. Seen by pain management team. Continue current medications. Pending discharge to rehab.
[2022-01-16 16:57] LABS: Glucose,Whole Blood 157 mg/dL (70-110)
[2022-01-16 19:26] LABS: Glucose,Whole Blood 170 mg/dL (70-110)
[2022-01-16] MEDS: ATORVASTATIN 40 MG TAB PO SCH ×2 (21:58→22:09)
[2022-01-16] MEDS: GABAPENTIN 300 MG CAP PO SCH ×2 (21:58→22:09)
[2022-01-16] MEDS: INSULIN DETEMIR (LEVEMIR) 100 UNIT/ML SYR SQ SCH ×2 (21:59→22:09)
[2022-01-16] MEDS ORDERED: HALOPERIDOL LACTATE 5 MG/ML 1 ML VIAL IM PRN (22:42)
[2022-01-16] MEDS ORDERED: HALOPERIDOL LACTATE 5 MG/ML 1 ML VIAL IM ONE (23:00)
[2022-01-17] MEDS ORDERED: HALOPERIDOL LACTATE 5 MG/ML 1 ML VIAL IM ONE (01:43)
[2022-01-17] MEDS: LORazepam 2 MG/ML INJ IV PRN ×2 (03:54→12:42)
[2022-01-17 04:27] LABS: ABG Base Excess 1.8 mmol/L; ABG HCO3 28 mmol/L (21-25); ABG Oxygen Saturation 91.2 % (94-97); ABG PCO2 53 mmHg (35-45); ABG PH 7.33 (7.35-7.45); ABG PO2 62 mmHg (83-108); ABG TCO2 29 mmol/L (19-24); Allen Test Performed? Yes
[2022-01-17] MEDS ORDERED: OLANZapine 10 MG VIAL IM STA (04:29)
[2022-01-17] MEDS ORDERED: methylPREDNISolone SOD SUCCI 125 MG/2 ML VIAL IV STA (04:30)
[2022-01-17] MEDS ORDERED: HYDROmorphone 0.5 MG/0.5 ML SYRINGE IM STA (04:43)
[2022-01-17 05:20] LABS: Anisocytosis Slight; Basophils # (A) 0.1 k/uL (0-0.2); Basophils % (A) 1 %; Eosinophils # (A) 0.2 k/uL (0-0.7); Eosinophils % (A) 2 %; HCT 29.3 % (39.0-53.0); HGB 8.6 gm/dL (13.0-17.5); Hypochromasia Marked; Lymphocytes # (A) 0.6 k/uL (1.0-4.8); Lymphocytes % (A) 5 %; MCH 27.9 pg (25.0-35.0); MCHC 29.5 g/dL (31.0-37.0); MCV 94.8 fL (80.0-100.0); Monocytes # (A) 0.5 k/uL (0-1.0); Monocytes % (A) 4 %; Neutrophils # (A) 9.5 k/uL (1.3-7.7); Neutrophils % (A) 86 %; Platelet Count 331 k/uL (150-450); RBC 3.08 m/uL (4.30-5.90)
[2022-01-17 05:39] LABS: African American GFR (CKD) 68 (>60 ml/min/1.73 sqM); Anion Gap 10 mmol/L; Blood Urea Nitrogen 32 mg/dL (9-20); Calcium 8.9 mg/dL (8.4-10.2); Carbon Dioxide 25 mmol/L (22-30); Chloride 109 mmol/L (98-107); Glucose 162 mg/dL (74-99); Non-African American GFR(CKD) 59 (>60 ml/min/1.73 sqM); Potassium 5.7 mmol/L (3.5-5.1); Sodium 144 mmol/L (137-145)
--- NOTE | 2022-01-17 05:51 | XR ---
EXAM: XR Chest, 1 View CLINICAL HISTORY: ITS.REASON XR Reason: Oxygen desaturation TECHNIQUE: Frontal view of the chest. COMPARISON: 01/06/22. IMPRESSION: No substantial change. Persistent moderate interstitial opacities throughout both lungs
--- NOTE | 2022-01-17 07:09 | P.EN ---
A team was called for rapid response its 5 AM. Response was called due to patient's increased agitation and concern for worsening mental status. Patient's currently in the hospital being treated for acute hypoxic respiratory failure from COPD, right heel diabetic wound, chronic pain. -Patient on examination was alert and oriented 0. He appeared to be very agitated and confused. Per nursing staff he has been getting Haldol for agitation which has not responded well. Patient's vital signs revealed the oxygenation of 96% on 6 L nasal cannula. Stat chest x-ray was obtained which was reviewed and did not show any significant change from previous x-ray imaging. Stat dose of 125 mg IV Solu-Medrol ordered due to patient's upper airway wheezing along with the patient's diffuse nonspecific rash. Patient had to be given 1 dose of IM Zyprexa for behavioral agitation control. Patient also given IV Dilaudid IM.
[2022-01-17 07:13] LABS: Glucose,Whole Blood 159 mg/dL (70-110)
[2022-01-17] MEDS: BUMETANIDE 1 MG TAB PO SCH (07:40)
[2022-01-17] MEDS: ASPIRIN 81 MG PO SCH (07:40)
[2022-01-17] MEDS: ENOXAPARIN 40 MG/0.4 ML SYRINGE SQ SCH (07:41)
[2022-01-17] MEDS: carvediloL 12.5 MG TAB PO SCH ×2 (07:41→22:45)
[2022-01-17] MEDS: hydrALAZINE HCL 50 MG TAB PO SCH ×3 (07:42→22:45)
[2022-01-17] MEDS: levETIRAcetam 500 MG TAB PO SCH ×2 (07:43→22:45)
[2022-01-17] MEDS: SODIUM ZIRCONIUM CYCLOSILICATE 10 GM PACKET PO SCH (07:43)
[2022-01-17] MEDS: TAMSULOSIN 0.4 MG CAP.ER.24H PO SCH (07:44)
[2022-01-17] MEDS: INSULIN ASPART (NovoLOG) 100 UNIT/ML VIAL SQ SCH ×3 (08:49→16:55)
[2022-01-17] MEDS: HYDROcodone/APAP 7.5-325MG 1 EACH TAB PO PRN ×2 (08:55→22:45)
--- NOTE | 2022-01-17 09:00 | P.PN ---
Subjective Progress Note Date: 01/15/22 Principal diagnosis: Right diabetic foot wound Patient is a 61-year-old male who recently did have multiple admission to this facility and was treated for right heel diabetic foot infection with underlying osteomyelitis culture positive for Enterobacter and MRSA and the patient has completed his antibiotic therapy as of 01/01/2022, patient now admitted to the hospital for possible syncopal episode and lack of home oxygen. On today's evaluation that is 01/15/2022, the patient remains to be afebrile, the patient is breathing comfortably on nasal cannula oxygen, the patient is awake and alert today, denies any chest pain or cough no abdominal pain and no diarrhea Objective - Vital Signs Vital signs: Vital Signs Temp 98.4 F 01/15/22 08:00 Pulse 82 01/15/22 12:06 Resp 18 01/15/22 08:00 BP 149/74 01/15/22 08:00 Pulse Ox 99 01/15/22 08:24 FiO2 4 01/11/22 00:00 Intake & Output 01/14/22 01/15/22 01/15/22 18:59 06:59 18:59 Output Total 300 Balance -300 Output: Urine 300 Other: Voiding Method Urinal Urinal # Voids 2 2 - Exam GENERAL DESCRIPTION: Middle-age male lying in bed in no distress RESPIRATORY SYSTEM: Unlabored breathing , decreased breath sounds at bases HEART: S1 S2 regular rate and rhythm , ABDOMEN: Soft , no tenderness EXTREMITIES: Right heel is currently dressed no drainage on the dressing - Labs CBC & Chem 7: 01/17/22 04:36 01/17/22 04:36 Labs: Abnormal Lab Results - Last 24 Hours (Table) 01/14/22 01/14/22 01/14/22 Range/Units 14:48 17:00 21:22 Potassium 5.9 H (3.5-5.5) mmol/L Anion Gap 9.70 L (10.00-18.00) mmol/L BUN 37.5 H (9.0-27.0) mg/dL Est GFR (CKD-EPI)AfAm 56.1 L (60.0-200.0) Est GFR (CKD-EPI)NonAf 48.4 L (60.0-200.0) BUN/Creatinine Ratio 24.51 H (12.00-20.00) Ratio POC Glucose (mg/dL) 116 H 146 H (75-99) mg/dL 01/15/22 Range/Units 06:51 Potassium (3.5-5.5) mmol/L Anion Gap (10.00-18.00) mmol/L BUN (9.0-27.0) mg/dL Est GFR (CKD-EPI)AfAm (60.0-200.0) Est GFR (CKD-EPI)NonAf (60.0-200.0) BUN/Creatinine Ratio (12.00-20.00) Ratio POC Glucose (mg/dL) 212 H (75-99) mg/dL Assessment and Plan (1) Decubitus ulcer of foot Current Visit: No Status: Acute Code(s): L89.899 - PRESSURE ULCER OF OTHER SITE, UNSPECIFIED STAGE SNOMED Code(s): 4243248604 (2) Diabetic foot ulcer Current Visit: No Status: Acute Code(s): E11.621 - TYPE 2 DIABETES MELLITUS WITH FOOT ULCER; L97.509 - NON-PRESSURE CHRONIC ULCER OTH PRT UNSP FOOT W UNSP SEVERITY SNOMED Code(s): 736769986 Plan: 1patient with a chronic nonhealing wound to the right heel area and this patient with underlying osteomyelitis secondary to Acinetobacter and MRSA for the patient completed more than 6 weeks of antibiotic therapy was recently discontinued patient became to the hospital with a possible syncopal episode and lack of home oxygen, patient did not have any fever white count is normal and no evidence of any significant cellulitis to the right heel wound area recommend local wound care. 2patient is status post debridement of the right heel wound completed on 01/11/2022 operative report did not mention any purulence or evidence of deep infection and no culture were done 3patient to continue local wound care with the Santyl for moist dressing daily and keep the area of pressure and monitor close off antibiotics Time with Patient: Less than 30
--- NOTE | 2022-01-17 09:02 | P.PN ---
Subjective Progress Note Date: 01/16/22 Principal diagnosis: Right diabetic foot wound Patient is a 61-year-old male who recently did have multiple admission to this facility and was treated for right heel diabetic foot infection with underlying osteomyelitis culture positive for Enterobacter and MRSA and the patient has completed his antibiotic therapy as of 01/01/2022, patient now admitted to the hospital for possible syncopal episode and lack of home oxygen. On today's evaluation that is 01/16/2022, the patient is afebrile, the patient is breathing comfortably on nasal cannula oxygen, the patient is lethargic today and unable to provide any history no changes reported by the sitter at the bedside Objective - Vital Signs Vital signs: Vital Signs Temp 98.2 F 01/16/22 08:03 Pulse 97 01/16/22 08:03 Resp 18 01/16/22 08:03 BP 177/82 01/16/22 08:03 Pulse Ox 97 01/16/22 08:03 FiO2 4 01/11/22 00:00 Intake & Output 01/15/22 01/16/22 01/16/22 18:59 06:59 18:59 Output Total 800 300 Balance -800 -300 Output: Urine 800 300 Other: Voiding Method Urinal Urinal Urinal # Bowel Movements 2 - Exam GENERAL DESCRIPTION: Middle-age male lying in bed in no distress RESPIRATORY SYSTEM: Unlabored breathing , decreased breath sounds at bases HEART: S1 S2 regular rate and rhythm , ABDOMEN: Soft , no tenderness EXTREMITIES: Right heel is currently dressed no drainage on the dressing - Labs CBC & Chem 7: 01/17/22 04:36 01/17/22 04:36 Labs: Abnormal Lab Results - Last 24 Hours (Table) 01/15/22 01/15/22 01/15/22 Range/Units 14:36 17:08 20:16 Potassium 5.5 H (3.5-5.1) mmol/L Chloride 108 H (98-107) mmol/L BUN 40 H (9-20) mg/dL Creatinine 1.54 H (0.66-1.25) mg/dL Glucose 140 H (74-99) mg/dL POC Glucose (mg/dL) 168 H 197 H (75-99) mg/dL 01/16/22 01/16/22 01/16/22 Range/Units 07:20 09:11 11:48 Potassium (3.5-5.1) mmol/L Chloride 110 H (98-107) mmol/L BUN 34 H (9-20) mg/dL Creatinine 1.43 H (0.66-1.25) mg/dL Glucose 129 H (74-99) mg/dL POC Glucose (mg/dL) 108 H 147 H (75-99) mg/dL Assessment and Plan (1) Decubitus ulcer of foot Current Visit: No Status: Acute Code(s): L89.899 - PRESSURE ULCER OF OTHER SITE, UNSPECIFIED STAGE SNOMED Code(s): 0469094164 (2) Diabetic foot ulcer Current Visit: No Status: Acute Code(s): E11.621 - TYPE 2 DIABETES MELLITUS WITH FOOT ULCER; L97.509 - NON-PRESSURE CHRONIC ULCER OTH PRT UNSP FOOT W UNSP SEVERITY SNOMED Code(s): 151070297 Plan: 1patient with a chronic nonhealing wound to the right heel area and this patient with underlying osteomyelitis secondary to Acinetobacter and MRSA for the patient completed more than 6 weeks of antibiotic therapy was recently discontinued patient became to the hospital with a possible syncopal episode and lack of home oxygen, patient did not have any fever white count is normal and no evidence of any significant cellulitis to the right heel wound area recommend local wound care. 2patient is status post debridement of the right heel wound completed on 01/11/2022 operative report did not mention any purulence or evidence of deep infection and no culture were done 3patient currently being monitor close off antibiotics and to continue local wound care with the Santyl for moist dressing daily and keep the area of pressure Time with Patient: Less than 30
[2022-01-17] MEDS: IPRATROPIUM-ALBUTEROL 3 ML NEB INHALATION SCH ×4 (09:08→20:28)
[2022-01-17] MEDS: BUDESONIDE 1 MG/2 ML NEBU INHALATION SCH ×2 (09:08→20:28)
[2022-01-17] MEDS ORDERED: SODIUM POLYSTYRENE SULFONATE 15 GM/60 ML BOTTLE PO STA (10:34)
[2022-01-17 11:21] LABS: Glucose,Whole Blood 184 mg/dL (70-110)
[2022-01-17 16:17] LABS: Glucose,Whole Blood 213 mg/dL (70-110)
[2022-01-17] MEDS: COLLAGENASE 250 UNIT/GM OINTMENT 30 GM TUBE TOPICAL SCH (16:56)
[2022-01-17] MEDS: SODIUM CHLORIDE 0.9% 500 ML 500 ML IV SCH (17:04)
--- NOTE | 2022-01-17 17:29 | P.PN ---
Progress Note - Text Progress Note Date: 01/17/22 Chief Complaint: Hypoxic This is a 61-year-old patient, follows with Dr. Smalls Chronic stable medical conditions include diabetes, hypertension, left below- knee amputation. admitted to the hospital on 11/09/2021 with a right foot nonhealing ulcer. Had been a smoker up to recently. Wound on right heel, wound cultures were positive for Acinetobacter and MRSA. MRI was negative for osteomyelitis. Seen by pain services for chronic pain. Neuropathic pain. Admitted with acute COPD exacerbation, pneumonia, right heel wound. IV Unasyn daptomycin continued. Bronchodilators. Steroids. For neuropathic pain , Neurontin was increased. seen by pain services. Patient was discharged to rehab Was in hospital and not a part of December. Discharged on December 25. Wound on the right heel. Seen by vascular team Dr. Marie. For outpatient follow-up. Was discharged to rehab. She was discharged from rehab to home yesterday. Patient felt he was discharged prematurely. Was discharged without oxygen and no pain medications. He went to live with his daughter. They were not told how to use oxygen. Apparently fell down and bumped his head. No loss of consciousness. As the daughter brought the patient back to the ER. Was placed in trauma to because of his respiratory status. This morning patient feeling much better. Most to go home. Wants pain medications for his foot. January 07: Patient was seen by vascular. Patient to follow-up outpatient. Discussed with ID. Not for antibiotics at the present time. Wound care to continue. The daughter wants the patient to go to rehab. licensed club manager is involved. Patient eating well. Sitting up in a chair. Pain well controlled. January 08: Up in a chair. Comfortable. Oral intake fair. as per Vascular patient had wound care debridement by Dr. blue last week. Patient being scheduled for right healed surgical wound debridement tomorrow. Many boot to right foot. Relevant to head. Changed [place] 5 every 6 when necessary January 09: Patient is being refused by 2 rehab places. Up in a chair. Comfortable. Pain control. Debridement was canceled because patient had breakfast. January 10: Patient completed Increased pain. [place] increased to 7.5 every 6 when necessary continue with Neurontin. Plan for debridement tomorrow. 2 places from rehab have declined the patient. Daughter is out of town till tomorrow. Hemoglobin 6.7 this morning. 1 unit PRBC ordered. January 14: I resumed care of patient today. Patient had right heel debridement on January [address] Poole. Again there is some area of black ischemia. Offloading reinforced. Patient was agitated earlier today. Received Ativan. Didn't want to eat. Spoke to supervisor case loading. Waiting for authorization. Elevated potassium. Tabithakelma added. January 15: Patient doing much better today. Communicating. Had his breakfast. IV Dilaudid discontinued. Pain consultation done. Discussed with supervisor case loading. Pending authorization. Santyl wound dressing. With offloading. January 16: Patient is pending authorization. Oral intake variable. Seen by pain management team. Continue on current medication. January 17: Patient is somewhat agitated last night. Required Haldol. Had some breakfast this morning. Earlier the nurse called me that. Patient was tw itching. EKG ordered. Added Risperdal today. 1 mg at night and 0.25 mg the morning. Neurology consulted. EEG ordered. Note that patient's sodium Keppra. Potassium 5.7. Kayexalate 45 g ordered. BISHOP Pruitt. Active Medications Hydrocodone Bitart/Acetaminophen (Hydrocodone/Apap 7.5-325mg 1 Each Tab) 1 each PO Q6HR PRN PRN Reason: Moderate Pain Last Admin: 01/17/22 08:55 Dose: 1 each Albuterol/Ipratropium (Ipratropium-Albuterol 3 Ml Neb) 3 ml INHALATION RT-QID [facility] Last Admin: 01/17/22 16:18 Dose: Not Given Aspirin (Aspirin 81 Mg) 81 mg PO DAILY [facility] Last Admin: 01/17/22 07:40 Dose: 81 mg Atorvastatin Calcium (Atorvastatin 40 Mg Tab) 40 mg PO HS [facility] Last Admin: 01/16/22 22:09 Dose: Not Given Budesonide (Budesonide 1 Mg/2 Ml Nebu) 1 mg INHALATION RT-BID [facility] Last Admin: 01/17/22 09:08 Dose: Not Given Bumetanide (Bumetanide 1 Mg Tab) 2 mg PO DAILY [facility] Last Admin: 01/17/22 07:40 Dose: 2 mg Carvedilol (Carvedilol 12.5 Mg Tab) 12.5 mg PO BID [facility] Last Admin: 01/17/22 07:41 Dose: 12.5 mg Collagenase (Collagenase 250 Unit/Gm Ointment 30 Gm Tube) 1 applic TOPICAL DAILY [facility]; Protocol Last Admin: 01/17/22 16:56 Dose: 1 applic Diphenhydramine HCl (Diphenhydramine 25 Mg Cap) 25 mg PO QID PRN PRN Reason: Allergic Reaction Last Admin: 01/16/22 21:29 Dose: 25 mg Enoxaparin Sodium (Enoxaparin 40 Mg/0.4 Ml Syringe) 40 mg SQ DAILY [facility] Last Admin: 01/17/22 07:41 Dose: 40 mg Gabapentin (Gabapentin 300 Mg Cap) 300 mg PO HS [facility] Last Admin: 01/16/22 22:09 Dose: Not Given Haloperidol Lactate (Haloperidol Lactate 5 Mg/Ml 1 Ml Vial) 2.5 mg IM Q4HR PRN PRN Reason: Agitation or Acute Psychosis Hydralazine HCl (Hydralazine Hcl 50 Mg Tab) 100 mg PO TID [facility] Last Admin: 01/17/22 16:54 Dose: 100 mg Sodium Chloride (Saline 0.9%) 500 mls @ 10 mls/hr IV .Q24H [facility] Last Admin: 01/17/22 17:04 Dose: Not Given Insulin Aspart (Insulin Aspart (Novolog) 100 Unit/Ml Vial) 10 unit SQ AC-TID [facility] Last Admin: 01/17/22 16:55 Dose: 10 unit Insulin Detemir (Insulin Detemir (Levemir) 100 Unit/Ml Syr) 18 unit SQ HS [facility] Last Admin: 01/16/22 22:09 Dose: Not Given Levetiracetam (Levetiracetam 500 Mg Tab) 1,000 mg PO BID [facility] Last Admin: 01/17/22 07:43 Dose: 1,000 mg Lidocaine HCl (Lidocaine 1% (10mg/Ml) For Iv Start) 0.1 ml INTRADERMA PER PROTOCOL PRN PRN Reason: IV Start Lorazepam (Lorazepam 2 Mg/Ml Inj) 0.5 mg IV Q6HR PRN PRN Reason: Anxiety Last Admin: 01/17/22 12:42 Dose: 0.5 mg Naloxone HCl (Naloxone 0.4 Mg/Ml 1 Ml Vial) 0.2 mg IV Q2M PRN PRN Reason: Opioid Reversal Risperidone (Risperidone 1 Mg Tab) 1 mg PO HS [facility] Risperidone (Risperidone 0.25 Mg Tab) 0.25 mg PO DAILY [facility] Ropinirole HCl (Ropinirole Hcl 0.25 Mg Tab) 0.5 mg PO TID [facility] Last Admin: 01/17/22 16:54 Dose: 0.5 mg Tamsulosin HCl (Tamsulosin 0.4 Mg Cap.Er.24h) 0.4 mg PO DAILY [facility] Last Admin: 01/17/22 07:44 Dose: 0.4 mg Past medical history to include: Stroke, diabetes, hypertension, left below-knee amputation, right heel wound, PAD Social history: Discharged to home yesterday from of [place], smoked 2 packs a day for 45 years up October 2021. No alcohol. . 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 Conjunctiva normal. HEENT: External appearance of nose and ears normal, oral cavity grossly normal. NECK: JVD not raised; masses not palpable. HEART: First and second heart sounds are normal; no edema. LUNGS: Respiratory rate increased; decreased breath sounds ABDOMEN: Soft, nontender, liver spleen not palpable, no masses palpable. PSYCH: Unable to assess, sleepy MUSCULOSKELETAL:No Clubbing/cyanosis;muscles-grossly intact. EXTREMITIES: Right heel necrotic wound. Dressing right lower extremity. Dry skin. Left below-knee amputation INVESTIGATIONS, reviewed in the clinical context: January 17: White count 11 hemoglobin 8.6 potassium 5.7 BUN 32 creatinine 1.3 January 16: Potassium 5.1 BUN 34 creatinine 1.43 January 06: White count 7.7 hemoglobin 7.1 platelets 301 potassium 5.6. 44 creatinine 1.73 EKG tracing personally reviewed by me-normal sensory. Nonspecific ST-T wave changes. Chest x-ray film personally reviewed by me: Possibly chronic changes Recent admission: Carotid Doppler:Subtotal occlusion right ICA and severe stenosis left ICA December 20: Hemoglobin 7 December 19: Potassium 5.1 BUN 37 creatinine 1.81 2-D echocardiogram: EF 60 - 65% Doppler ultrasound December 10 right lower extremity: Negative for DVT Assessment and plan: -Acute hypoxic respiratory failure from COPD exacerbation: Better Patient is unable to use his oxygen at home. Circumstances unclear. Supple mental oxygen. -Chronic encephalomalacia involving the right frontal lobe. -Subtotal occlusion right ICA and severe stenosis left ICA Follow with Dr. Marie outpatient - Acute COPD exacerbation in a previous smoker: improving DuoNeb 4 times a day. Pulmicort nebulizer twice a day. -Right heel diabetic wound negative for osteomyelitis per recent MRI.: Previous Culture positive for Acinetobacter, MRSA No need for further antibiotics per ID.. Patient had his wound debrided by Dr. blue last week and the wound care center. Debridement done on January [address] Poole.Santyl wound care with offloading -chronic hypoxic respiratory failure from COPD On home oxygen -Acute on chronic Normocytic anemia/iron deficiency anemia Received 1 unit of PRBC -Chronic kidney disease stage III likely diabetic nephropathy and hypertensive nephrosclerosis Creatinine 1.68 on November 09 -Diabetes mellitus type 2, chronically on insulin: Controlled with hypoglycemia Levemir 18 units. 5 units with meals Humalog. Sliding scale. -Essential hypertension Coreg 12.5 mg twice a day hydralazine 100 mg 2 times a day -Diabetic peripheral neuropathy: Contact Neurontin 300 mg daily at bedtime -Restless leg syndrome: Requip 0.5 mg by mouth 3 times a day -Left below-knee amputation -PAD -Chronic pain. Patient seen by pain management team last admission. [place] 7.5 every 6 when necessary. Neurontin 300 mg daily at bedtime -Hyperkalemia: Not Improving, Potassium 5.7. Stop Lokelma. Kayexalate 45 g. -Episodes of twitching. Rule out seizure. EEG ordered. Neurology consulted. Could be from hyperkalemia. -Full code Stop Lokelma. Kayexalate 30 g. Other medications to continue. Patient on Keppra. EEG ordered. Neurology consulted.
--- NOTE | 2022-01-17 21:25 | CT ---
EXAMINATION TYPE: CT brain cspine wo con DATE OF EXAM: 01/17/2022 COMPARISON: 12/18/2021 HISTORY: unwitnessed fall CT DLP: 1685.2 mGycm Automated exposure control for dose reduction was used. TECHNIQUE: CT scan of the head and cervical spine are performed without contrast. FINDINGS: There is no acute intracranial hemorrhage, mass effect, or midline shift identified. The re is old right frontal infarct. The white matter is otherwise grossly preserved. The ventricles and sulci are within normal limits in size. The globes are intact and the visualized sinuses are clear. Cervical spine is visualized in its entirety from C1 through upper thoracic levels and demonstrates s atisfactory alignment without evidence of acute fracture or dislocation. Prevertebral soft tissue ap pears within normal limits. The C1-C2 articulation is unremarkable. The partially imaged upper lung s demonstrate at least small right pleural effusion. IMPRESSION: Incidental right pleural effusion. Otherwise no acute intracranial or cervical spine abnormality.
[2022-01-17 21:48] LABS: Glucose,Whole Blood 191 mg/dL (70-110)
[2022-01-17] MEDS: GABAPENTIN 300 MG CAP PO SCH (22:44)
[2022-01-17] MEDS: INSULIN DETEMIR (LEVEMIR) 100 UNIT/ML SYR SQ SCH (22:44)
[2022-01-17] MEDS: ATORVASTATIN 40 MG TAB PO SCH (22:45)
[2022-01-17] MEDS: risperiDONE 1 MG TAB PO SCH (22:45)
[2022-01-18] MEDS: ONDANSETRON 4 MG/2 ML VIAL IVP PRN ×2 (00:05→23:15)
[2022-01-18 02:04] LABS: African American GFR (CKD) 62 (>60 ml/min/1.73 sqM); Anion Gap 3 mmol/L; Blood Urea Nitrogen 37 mg/dL (9-20); Calcium 8.2 mg/dL (8.4-10.2); Carbon Dioxide 34 mmol/L (22-30); Chloride 108 mmol/L (98-107); Glucose 142 mg/dL (74-99); Non-African American GFR(CKD) 54 (>60 ml/min/1.73 sqM); Potassium 4.7 mmol/L (3.5-5.1); Sodium 145 mmol/L (137-145)
[2022-01-18] MEDS: HYDROcodone/APAP 7.5-325MG 1 EACH TAB PO PRN ×4 (04:03→22:04)
[2022-01-18 07:29] LABS: Glucose,Whole Blood 199 mg/dL (70-110)
[2022-01-18] MEDS: hydrALAZINE HCL 50 MG TAB PO SCH ×3 (08:04→21:10)
[2022-01-18] MEDS: TAMSULOSIN 0.4 MG CAP.ER.24H PO SCH (08:05)
[2022-01-18] MEDS: ASPIRIN 81 MG PO SCH (08:05)
[2022-01-18] MEDS: carvediloL 12.5 MG TAB PO SCH ×2 (08:05→21:09)
[2022-01-18] MEDS: INSULIN ASPART (NovoLOG) 100 UNIT/ML VIAL SQ SCH ×4 (08:05→16:46)
[2022-01-18] MEDS: ENOXAPARIN 40 MG/0.4 ML SYRINGE SQ SCH ×2 (08:05→08:10)
[2022-01-18] MEDS: BUMETANIDE 1 MG TAB PO SCH (08:06)
[2022-01-18] MEDS: risperiDONE 0.25 MG TAB PO SCH (08:06)
[2022-01-18] MEDS: levETIRAcetam 500 MG TAB PO SCH ×2 (08:06→22:03)
[2022-01-18] MEDS: COLLAGENASE 250 UNIT/GM OINTMENT 30 GM TUBE TOPICAL SCH (08:11)
[2022-01-18] MEDS: IPRATROPIUM-ALBUTEROL 3 ML NEB INHALATION SCH ×4 (09:04→20:50)
[2022-01-18] MEDS: BUDESONIDE 1 MG/2 ML NEBU INHALATION SCH ×2 (09:07→20:50)
[2022-01-18 11:25] LABS: Glucose,Whole Blood 178 mg/dL (70-110)
--- NOTE | 2022-01-18 13:01 | EEG ---
ELECTROENCEPHALOGRAM REPORT DATE OF SERVICE: 01/18/2022 PREAMBLE: This is a 61-year-old male with spastic movements. Patient recently had amputation and infection and had MRSA. He has chronic pain. Yesterday he developed full-body spastic movements. He was able to speak through them, but they were uncontrolled. Patient has history of diabetes, hypertension. EEG FINDINGS: This is a 21-channel digital EEG recorded with video component, utilizing 10/20 international system with referential and bipolar montages. Background consists of well-developed but not very well-regulated mixed frequencies of 2 to 3 hertz delta, intermixed with some relatively better 6 to 7 hertz theta activity seen in bihemispheric region. Background does not seem to be reactive to eye opening or closing. Photic stimulation was not performed. Different stages of sleep were not clearly seen. No focal or generalized epileptiform activity was seen. IMPRESSION: This is an abnormal EEG due to background slowing of moderate degree. This is suggestive of generalized cerebral dysfunction as can be seen with toxic metabolic encephalopathy or related to diffuse structural brain abnormality. Clinical correlation is recommended. No epileptiform activity was seen. MMODL / IJN: [id number] /
--- NOTE | 2022-01-18 15:03 | P.PN ---
Subjective Progress Note Date: 01/17/22 Principal diagnosis: Right diabetic foot wound Patient is a 61-year-old male who recently did have multiple admission to this facility and was treated for right heel diabetic foot infection with underlying osteomyelitis culture positive for Enterobacter and MRSA and the patient has completed his antibiotic therapy as of 01/01/2022, patient now admitted to the hospital for possible syncopal episode and lack of home oxygen. On today's evaluation that is 01/17/2022, the patient remains to be afebrile, the patient is breathing comfortably on nasal cannula oxygen, the patient remains to be lethargic today and unable to provide any history no changes reported by the nursing staff Objective - Vital Signs Vital signs: Vital Signs Temp 98.5 F 01/17/22 14:45 Pulse 100 01/17/22 14:45 Resp 26 H 01/17/22 14:45 BP 171/73 01/17/22 14:45 Pulse Ox 96 01/17/22 14:45 FiO2 4 01/11/22 00:00 Intake & Output 01/16/22 01/17/22 01/17/22 18:59 06:59 18:59 Intake Total 240 Output Total 700 Balance -700 240 Weight 94.347 kg Intake: Oral 240 Output: Urine 700 Other: Voiding Method Urinal # Voids 2 # Bowel Movements 1 2 - Exam GENERAL DESCRIPTION: Middle-age male lying in bed in no distress RESPIRATORY SYSTEM: Unlabored breathing , decreased breath sounds at bases HEART: S1 S2 regular rate and rhythm , ABDOMEN: Soft , no tenderness EXTREMITIES: Right heel is currently dressed no drainage on the dressing - Labs CBC & Chem 7: 01/17/22 04:36 01/18/22 01:27 Labs: Abnormal Lab Results - Last 24 Hours (Table) 01/16/22 01/16/22 01/17/22 Range/Units 16:53 19:24 04:24 WBC (3.8-10.6) k/uL RBC (4.30-5.90) m/uL Hgb (13.0-17.5) gm/dL Hct (39.0-53.0) % MCHC (31.0-37.0) g/dL RDW (11.5-15.5) % Neutrophils # (1.3-7.7) k/uL Lymphocytes # (1.0-4.8) k/uL ABG pH 7.33 L (7.35-7.45) ABG pCO2 53 H (35-45) mmHg ABG pO2 62 L (83-108) mmHg ABG HCO3 28 H (21-25) mmol/L ABG Total CO2 29 H (19-24) mmol/L ABG O2 Saturation 91.2 L (94-97) % Potassium (3.5-5.1) mmol/L Chloride (98-107) mmol/L BUN (9-20) mg/dL Creatinine (0.66-1.25) mg/dL Glucose (74-99) mg/dL POC Glucose (mg/dL) 157 H 170 H (70-110) mg/dL 01/17/22 01/17/22 01/17/22 Range/Units 04:36 04:36 07:11 WBC 11.0 H (3.8-10.6) k/uL RBC 3.08 L (4.30-5.90) m/uL Hgb 8.6 L (13.0-17.5) gm/dL Hct 29.3 L (39.0-53.0) % MCHC 29.5 L (31.0-37.0) g/dL RDW 16.0 H (11.5-15.5) % Neutrophils # 9.5 H (1.3-7.7) k/uL Lymphocytes # 0.6 L (1.0-4.8) k/uL ABG pH (7.35-7.45) ABG pCO2 (35-45) mmHg ABG pO2 (83-108) mmHg ABG HCO3 (21-25) mmol/L ABG Total CO2 (19-24) mmol/L ABG O2 Saturation (94-97) % Potassium 5.7 H (3.5-5.1) mmol/L Chloride 109 H (98-107) mmol/L BUN 32 H (9-20) mg/dL Creatinine 1.30 H (0.66-1.25) mg/dL Glucose 162 H (74-99) mg/dL POC Glucose (mg/dL) 159 H (70-110) mg/dL 01/17/22 Range/Units 11:20 WBC (3.8-10.6) k/uL RBC (4.30-5.90) m/uL Hgb (13.0-17.5) gm/dL Hct (39.0-53.0) % MCHC (31.0-37.0) g/dL RDW (11.5-15.5) % Neutrophils # (1.3-7.7) k/uL Lymphocytes # (1.0-4.8) k/uL ABG pH (7.35-7.45) ABG pCO2 (35-45) mmHg ABG pO2 (83-108) mmHg ABG HCO3 (21-25) mmol/L ABG Total CO2 (19-24) mmol/L ABG O2 Saturation (94-97) % Potassium (3.5-5.1) mmol/L Chloride (98-107) mmol/L BUN (9-20) mg/dL Creatinine (0.66-1.25) mg/dL Glucose (74-99) mg/dL POC Glucose (mg/dL) 184 H (70-110) mg/dL Assessment and Plan (1) Decubitus ulcer of foot Current Visit: No Status: Acute Code(s): L89.899 - PRESSURE ULCER OF OTHER SITE, UNSPECIFIED STAGE SNOMED Code(s): 5397504441 (2) Diabetic foot ulcer Current Visit: No Status: Acute Code(s): E11.621 - TYPE 2 DIABETES MELLITUS WITH FOOT ULCER; L97.509 - NON-PRESSURE CHRONIC ULCER OTH PRT UNSP FOOT W UNSP SEVERITY SNOMED Code(s): 076350724 Plan: 1patient with a chronic nonhealing wound to the right heel area and this patient with underlying osteomyelitis secondary to Acinetobacter and MRSA for the patient completed more than 6 weeks of antibiotic therapy was recently discontinued patient became to the hospital with a possible syncopal episode and lack of home oxygen, patient did not have any fever white count is normal and no evidence of any significant cellulitis to the right heel wound area recommend local wound care. 2patient is status post debridement of the right heel wound completed on 01/11/2022 operative report did not mention any purulence or evidence of deep infection and no culture were done 3patient to continue local wound care with the Santyl for moist dressing daily and keep the area of pressure Time with Patient: Less than 30
--- NOTE | 2022-01-18 15:06 | P.PN ---
Subjective Progress Note Date: 01/18/22 Principal diagnosis: Right diabetic foot wound Patient is a 61-year-old male who recently did have multiple admission to this facility and was treated for right heel diabetic foot infection with underlying osteomyelitis culture positive for Enterobacter and MRSA and the patient has completed his antibiotic therapy as of 01/01/2022, patient now admitted to the hospital for possible syncopal episode and lack of home oxygen. On today's evaluation that is 01/18/2022, the patient denies any fever or chills, the jolie more awake and alert today, the patient is ent is breathing comfortably on nasal cannula oxygen, the patient denies any chest pain or cough no abdominal pain or any worsening pain to the right heel area Objective - Vital Signs Vital signs: Vital Signs Temp 99.2 F 01/18/22 08:00 Pulse 92 01/18/22 12:02 Resp 24 01/18/22 08:00 BP 135/66 01/18/22 08:00 Pulse Ox 96 01/18/22 08:00 FiO2 4 01/11/22 00:00 Intake & Output 01/17/22 01/18/22 01/18/22 18:59 06:59 18:59 Intake Total 240 Output Total 800 948 Balance -560 -948 Intake: Oral 240 Output: Urine 800 500 Post Void Residual 448 Other: Voiding Method Urinal Urinal # Voids 2 1 - Exam GENERAL DESCRIPTION: Middle-age male lying in bed in no distress RESPIRATORY SYSTEM: Unlabored breathing , decreased breath sounds at bases HEART: S1 S2 regular rate and rhythm , ABDOMEN: Soft , no tenderness EXTREMITIES: Right heel is currently dressed no drainage on the dressing - Labs CBC & Chem 7: 01/17/22 04:36 01/18/22 01:27 Labs: Abnormal Lab Results - Last 24 Hours (Table) 01/17/22 01/17/22 01/18/22 Range/Units 16:15 21:45 01:27 Chloride 108 H (98-107) mmol/L Carbon Dioxide 34 H (22-30) mmol/L BUN 37 H (9-20) mg/dL Creatinine 1.41 H (0.66-1.25) mg/dL Glucose 142 H (74-99) mg/dL POC Glucose (mg/dL) 213 H 191 H (70-110) mg/dL Calcium 8.2 L (8.4-10.2) mg/dL 01/18/22 01/18/22 Range/Units 07:27 11:23 Chloride (98-107) mmol/L Carbon Dioxide (22-30) mmol/L BUN (9-20) mg/dL Creatinine (0.66-1.25) mg/dL Glucose (74-99) mg/dL POC Glucose (mg/dL) 199 H 178 H (70-110) mg/dL Calcium (8.4-10.2) mg/dL Assessment and Plan (1) Decubitus ulcer of foot Current Visit: No Status: Acute Code(s): L89.899 - PRESSURE ULCER OF OTHER SITE, UNSPECIFIED STAGE SNOMED Code(s): 9410012770 (2) Diabetic foot ulcer Current Visit: No Status: Acute Code(s): E11.621 - TYPE 2 DIABETES MELLITUS WITH FOOT ULCER; L97.509 - NON-PRESSURE CHRONIC ULCER OTH PRT UNSP FOOT W UNSP SEVERITY SNOMED Code(s): 152089100 Plan: 1patient with a chronic nonhealing wound to the right heel area and this patient with underlying osteomyelitis secondary to Acinetobacter and MRSA for the patient completed more than 6 weeks of antibiotic therapy was recently discontinued patient became to the hospital with a possible syncopal episode and lack of home oxygen, patient is Noted any fever white count is normal and no evidence of any significant cellulitis to the right heel wound area recommend local wound care. 2patient is status post debridement of the right heel wound no purulence and no cultures were done. 3local wound care with the Santyl for moist dressing daily and keep the area of pressure. 4no need for systemic antibiotic therapy on discharge Time with Patient: Less than 30
--- NOTE | 2022-01-18 16:41 | P.PN ---
Progress Note - Text Progress Note Date: 01/18/22 Chief Complaint: Hypoxic This is a 61-year-old patient, follows with Dr. Smalls Chronic stable medical conditions include diabetes, hypertension, left below- knee amputation. admitted to the hospital on 11/09/2021 with a right foot nonhealing ulcer. Had been a smoker up to recently. Wound on right heel, wound cultures were positive for Acinetobacter and MRSA. MRI was negative for osteomyelitis. Seen by pain services for chronic pain. Neuropathic pain. Admitted with acute COPD exacerbation, pneumonia, right heel wound. IV Unasyn daptomycin continued. Bronchodilators. Steroids. For neuropathic pain , Neurontin was increased. seen by pain services. Patient was discharged to rehab Was in hospital and not a part of December. Discharged on December 25. Wound on the right heel. Seen by vascular team Dr. Marie. For outpatient follow-up. Was discharged to rehab. She was discharged from rehab to home yesterday. Patient felt he was discharged prematurely. Was discharged without oxygen and no pain medications. He went to live with his daughter. They were not told how to use oxygen. Apparently fell down and bumped his head. No loss of consciousness. As the daughter brought the patient back to the ER. Was placed in trauma to because of his respiratory status. This morning patient feeling much better. Most to go home. Wants pain medications for his foot. January 07: Patient was seen by vascular. Patient to follow-up outpatient. Discussed with ID. Not for antibiotics at the present time. Wound care to continue. The daughter wants the patient to go to rehab. protection manager is involved. Patient eating well. Sitting up in a chair. Pain well controlled. January 08: Up in a chair. Comfortable. Oral intake fair. as per Vascular patient had wound care debridement by Dr. blue last week. Patient being scheduled for right healed surgical wound debridement tomorrow. Many boot to right foot. Relevant to head. Changed Mcville 5 every 6 when necessary January 09: Patient is being refused by 2 rehab places. Up in a chair. Comfortable. Pain control. Debridement was canceled because patient had breakfast. January 10: Patient completed Increased pain. Mcville increased to 7.5 every 6 when necessary continue with Neurontin. Plan for debridement tomorrow. 2 places from rehab have declined the patient. Daughter is out of town till tomorrow. Hemoglobin 6.7 this morning. 1 unit PRBC ordered. January 14: I resumed care of patient today. Patient had right heel debridement on January [address] Poole. Again there is some area of black ischemia. Offloading reinforced. Patient was agitated earlier today. Received Ativan. Didn't want to eat. Spoke to bilingual case manager. Waiting for authorization. Elevated potassium. Lokelma added. January 15: Patient doing much better today. Communicating. Had his breakfast. IV Dilaudid discontinued. Pain consultation done. Discussed with bilingual case manager. Pending authorization. Santyl wound dressing. With offloading. January 16: Patient is pending authorization. Oral intake variable. Seen by pain management team. Continue on current medication. January 17: Patient is somewhat agitated last night. Required Haldol. Had some breakfast this morning. Earlier the nurse called me that. Patient was tw itching. EKG ordered. Added Risperdal today. 1 mg at night and 0.25 mg the morning. Neurology consulted. EEG ordered. Note that patient's sodium Keppra. Potassium 5.7. Kayexalate 45 g ordered. BISHOP Pruitt. January 18: Patient was started on Risperdal yesterday. Doing much better this morning. EEG negative for seizure activity. Patient has been declined at rehab. I spoke to Sofi from case management. To expedite discharge Active Medications Hydrocodone Bitart/Acetaminophen (Hydrocodone/Apap 7.5-325mg 1 Each Tab) 1 each PO Q6HR PRN PRN Reason: Moderate Pain Last Admin: 01/18/22 10:15 Dose: 1 each Albuterol/Ipratropium (Ipratropium-Albuterol 3 Ml Neb) 3 ml INHALATION RT-QID [facility] Last Admin: 01/18/22 11:53 Dose: 3 ml Aspirin (Aspirin 81 Mg) 81 mg PO DAILY [facility] Last Admin: 01/18/22 08:05 Dose: 81 mg Atorvastatin Calcium (Atorvastatin 40 Mg Tab) 40 mg PO HS [facility] Last Admin: 01/17/22 22:45 Dose: 40 mg Budesonide (Budesonide 1 Mg/2 Ml Nebu) 1 mg INHALATION RT-BID [facility] Last Admin: 01/18/22 09:07 Dose: 1 mg Bumetanide (Bumetanide 1 Mg Tab) 2 mg PO DAILY [facility] Last Admin: 01/18/22 08:06 Dose: 2 mg Carvedilol (Carvedilol 12.5 Mg Tab) 12.5 mg PO BID [facility] Last Admin: 01/18/22 08:05 Dose: 12.5 mg Collagenase (Collagenase 250 Unit/Gm Ointment 30 Gm Tube) 1 applic TOPICAL DAILY [facility]; Protocol Last Admin: 01/18/22 08:11 Dose: Not Given Diphenhydramine HCl (Diphenhydramine 25 Mg Cap) 25 mg PO QID PRN PRN Reason: Allergic Reaction Last Admin: 01/16/22 21:29 Dose: 25 mg Enoxaparin Sodium (Enoxaparin 40 Mg/0.4 Ml Syringe) 40 mg SQ DAILY [facility] Last Admin: 01/18/22 08:10 Dose: Not Given Gabapentin (Gabapentin 300 Mg Cap) 300 mg PO [facility] Last Admin: 01/17/22 22:44 Dose: 300 mg Haloperidol Lactate (Haloperidol Lactate 5 Mg/Ml 1 Ml Vial) 2.5 mg IM Q4HR PRN PRN Reason: Agitation or Acute Psychosis Hydralazine HCl (Hydralazine Hcl 50 Mg Tab) 100 mg PO TID [facility] Last Admin: 01/18/22 08:04 Dose: 100 mg Sodium Chloride (Saline 0.9%) 500 mls @ 10 mls/hr IV .Q24H [facility] Last Admin: 01/17/22 17:04 Dose: Not Given Insulin Aspart (Insulin Aspart (Novolog) 100 Unit/Ml Vial) 10 unit SQ AC-TID [facility] Last Admin: 01/18/22 12:01 Dose: 10 unit Insulin Detemir (Insulin Detemir (Levemir) 100 Unit/Ml Syr) 18 unit SQ [facility] Last Admin: 01/17/22 22:44 Dose: 18 unit Levetiracetam (Levetiracetam 500 Mg Tab) 1,000 mg PO BID [facility] Last Admin: 01/18/22 08:06 Dose: 1,000 mg Lidocaine HCl (Lidocaine 1% (10mg/Ml) For Iv Start) 0.1 ml INTRADERMA PER PROTOCOL PRN PRN Reason: IV Start Lorazepam (Lorazepam 2 Mg/Ml Inj) 0.5 mg IV Q6HR PRN PRN Reason: Anxiety Last Admin: 01/17/22 12:42 Dose: 0.5 mg Naloxone HCl (Naloxone 0.4 Mg/Ml 1 Ml Vial) 0.2 mg IV Q2M PRN PRN Reason: Opioid Reversal Ondansetron HCl (Ondansetron 4 Mg/2 Ml Vial) 4 mg IVP Q6HR PRN PRN Reason: Nausea And Vomiting Last Admin: 01/18/22 00:05 Dose: 4 mg Risperidone (Risperidone 1 Mg Tab) 1 mg PO HS [facility] Last Admin: 01/17/22 22:45 Dose: 1 mg Risperidone (Risperidone 0.25 Mg Tab) 0.25 mg PO DAILY [facility] Last Admin: 01/18/22 08:06 Dose: 0.25 mg Ropinirole HCl (Ropinirole Hcl 0.25 Mg Tab) 0.5 mg PO TID [facility] Last Admin: 01/18/22 08:05 Dose: 0.5 mg Tamsulosin HCl (Tamsulosin 0.4 Mg Cap.Er.24h) 0.4 mg PO DAILY [facility] Last Admin: 01/18/22 08:05 Dose: 0.4 mg Past medical history to include: Stroke, diabetes, hypertension, left below-knee amputation, right heel wound, PAD Social history: Discharged to home yesterday from of [place], smoked 2 packs a day for 45 years up October 2021. No alcohol. . 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 Conjunctiva normal. HEENT: External appearance of nose and ears normal, oral cavity grossly normal. NECK: JVD not raised; masses not palpable. HEART: First and second heart sounds are normal; no edema. LUNGS: Respiratory rate increased; decreased breath sounds ABDOMEN: Soft, nontender, liver spleen not palpable, no masses palpable. PSYCH: Answering questions appropriately MUSCULOSKELETAL:No Clubbing/cyanosis;muscles-grossly intact. EXTREMITIES: Right heel necrotic wound. Dressing right lower extremity. Dry skin. Left below-knee amputation INVESTIGATIONS, reviewed in the clinical context: January 18: Potassium 4.7 BUN 37 creatinine 1.41 January 17: White count 11 hemoglobin 8.6 potassium 5.7 BUN 32 creatinine 1.3 January 16: Potassium 5.1 BUN 34 creatinine 1.43 January 06: White count 7.7 hemoglobin 7.1 platelets 301 potassium 5.6. 44 creatinine 1.73 EKG tracing personally reviewed by me-normal sensory. Nonspecific ST-T wave changes. Chest x-ray film personally reviewed by me: Possibly chronic changes Recent admission: Carotid Doppler:Subtotal occlusion right ICA and severe stenosis left ICA December 20: Hemoglobin 7 December 19: Potassium 5.1 BUN 37 creatinine 1.81 2-D echocardiogram: EF 60 - 65% Doppler ultrasound December 10 right lower extremity: Negative for DVT Assessment and plan: -Acute hypoxic respiratory failure from COPD exacerbation: Better Patient is unable to use his oxygen at home. Circumstances unclear. Supplemental oxygen. -Chronic encephalomalacia involving the right frontal lobe. -Subtotal occlusion right ICA and severe stenosis left ICA Follow with Dr. Marie outpatient - Acute COPD exacerbation in a previous smoker: improving DuoNeb 4 times a day. Pulmicort nebulizer twice a day. -Right heel diabetic wound negative for osteomyelitis per recent MRI.: Previous Culture positive for Acinetobacter, MRSA No need for further antibiotics per ID.. Patient had his wound debrided by Dr. blue last week and the wound care center. [facility] [address] [facility]loading -chronic hypoxic respiratory failure from COPD On home oxygen -Acute on chronic Normocytic anemia/iron deficiency anemia Received 1 unit of PRBC -Chronic kidney disease stage III likely diabetic nephropathy and hypertensive nephrosclerosis Creatinine 1.68 on November 09 -Diabetes mellitus type 2, chronically on insulin: Controlled with hypoglycemia Levemir 18 units. 5 units with meals Humalog. Sliding scale. -Essential hypertension Coreg 12.5 mg twice a day hydralazine 100 mg three times a day -Diabetic peripheral neuropathy: Contact Neurontin 300 mg daily at bedtime -Restless leg syndrome: Requip 0.5 mg by mouth 3 times a day -Left below-knee amputation -PAD -Chronic pain. Patient seen by pain management team last admission. Mcville 7.5 every 6 when necessary. Neurontin 300 mg daily at bedtime -Hyperkalemia: Better Received Stop Lokelma. Kayexalate 45 g. -Episodes of twitching. No seizure activity -Full code Continue current medication treatment plan. Discussed with Sofi from case management services. To help with discharge. Rehab has been declined again.
[2022-01-18 16:43] LABS: Glucose,Whole Blood 199 mg/dL (70-110)
[2022-01-18] MEDS: SODIUM CHLORIDE 0.9% 500 ML 500 ML IV SCH (16:51)
[2022-01-18 20:15] LABS: Glucose,Whole Blood 204 mg/dL (70-110)
[2022-01-18] MEDS: ATORVASTATIN 40 MG TAB PO SCH (21:09)
[2022-01-18] MEDS: INSULIN DETEMIR (LEVEMIR) 100 UNIT/ML SYR SQ SCH (21:10)
[2022-01-18] MEDS: GABAPENTIN 300 MG CAP PO SCH (21:10)
[2022-01-18] MEDS: risperiDONE 1 MG TAB PO SCH (22:03)
[2022-01-19] MEDS: HYDROcodone/APAP 7.5-325MG 1 EACH TAB PO PRN ×4 (03:09→20:52)
[2022-01-19 07:20] LABS: Glucose,Whole Blood 265 mg/dL (70-110)
[2022-01-19] MEDS: INSULIN ASPART (NovoLOG) 100 UNIT/ML VIAL SQ SCH ×3 (07:31→17:25)
[2022-01-19] MEDS: ENOXAPARIN 40 MG/0.4 ML SYRINGE SQ SCH (07:31)
[2022-01-19] MEDS: hydrALAZINE HCL 50 MG TAB PO SCH ×3 (07:32→20:52)
[2022-01-19] MEDS: ASPIRIN 81 MG PO SCH (07:32)
[2022-01-19] MEDS: carvediloL 12.5 MG TAB PO SCH ×2 (07:32→20:52)
[2022-01-19] MEDS: TAMSULOSIN 0.4 MG CAP.ER.24H PO SCH (07:32)
[2022-01-19] MEDS: BUMETANIDE 1 MG TAB PO SCH (07:33)
[2022-01-19] MEDS: risperiDONE 0.25 MG TAB PO SCH (07:33)
[2022-01-19] MEDS: levETIRAcetam 500 MG TAB PO SCH ×2 (07:33→20:52)
[2022-01-19] MEDS: COLLAGENASE 250 UNIT/GM OINTMENT 30 GM TUBE TOPICAL SCH (07:34)
[2022-01-19] MEDS: IPRATROPIUM-ALBUTEROL 3 ML NEB INHALATION SCH ×4 (09:06→20:27)
[2022-01-19] MEDS: BUDESONIDE 1 MG/2 ML NEBU INHALATION SCH ×2 (09:06→20:27)
[2022-01-19 11:12] LABS: Glucose,Whole Blood 224 mg/dL (70-110)
--- NOTE | 2022-01-19 12:49 | P.PN ---
Subjective Progress Note Date: 01/19/22 Principal diagnosis: Right diabetic foot wound Patient is a 61-year-old male who recently did have multiple admission to this facility and was treated for right heel diabetic foot infection with underlying osteomyelitis culture positive for Enterobacter and MRSA and the patient has completed his antibiotic therapy as of 01/01/2022, patient now admitted to the hospital for possible syncopal episode and lack of home oxygen. On today's evaluation that is 01/19/2022, the patient remains to be afebrile, the patient is awake and alert , the patient is breathing comfortably on nasal cannula oxygen, the patient denies any chest pain or cough no abdominal pain or any worsening pain to the right heel area Objective - Vital Signs Vital signs: Vital Signs Temp 98.6 F 01/19/22 07:49 Pulse 93 01/19/22 09:18 Resp 20 01/19/22 07:49 BP 179/71 01/19/22 07:49 Pulse Ox 98 01/19/22 09:10 FiO2 4 01/11/22 00:00 Intake & Output 01/18/22 01/19/22 01/19/22 18:59 06:59 18:59 Output Total 350 500 Balance -350 -500 Output: Urine 350 500 Other: Voiding Method Urinal Urinal Urinal # Voids 4 1 # Bowel Movements 1 - Exam GENERAL DESCRIPTION: Middle-age male lying in bed in no distress RESPIRATORY SYSTEM: Unlabored breathing , decreased breath sounds at bases HEART: S1 S2 regular rate and rhythm , ABDOMEN: Soft , no tenderness EXTREMITIES: Right heel is currently dressed no drainage on the dressing - Labs CBC & Chem 7: 01/17/22 04:36 01/18/22 01:27 Labs: Abnormal Lab Results - Last 24 Hours (Table) 01/18/22 01/18/22 01/19/22 Range/Units 16:40 20:14 07:18 POC Glucose (mg/dL) 199 H 204 H 265 H (70-110) mg/dL 01/19/22 Range/Units 11:10 POC Glucose (mg/dL) 224 H (70-110) mg/dL Assessment and Plan (1) Decubitus ulcer of foot Current Visit: No Status: Acute Code(s): L89.899 - PRESSURE ULCER OF OTHER SITE, UNSPECIFIED STAGE SNOMED Code(s): 1190333423 (2) Diabetic foot ulcer Current Visit: No Status: Acute Code(s): E11.621 - TYPE 2 DIABETES MELLITUS WITH FOOT ULCER; L97.509 - NON-PRESSURE CHRONIC ULCER OTH PRT UNSP FOOT W UNSP SEVERITY SNOMED Code(s): 477921641 Plan: 1patient with a chronic nonhealing wound to the right heel area and this patient with underlying osteomyelitis secondary to Acinetobacter and MRSA for the patient completed more than 6 weeks of antibiotic therapy was recently discontinued patient became to the hospital with a possible syncopal episode and lack of home oxygen, patient is Noted any fever white count is normal and no evidence of any significant cellulitis to the right heel wound area recommend local wound care. 2patient is status post debridement of the right heel wound no purulence and no cultures were done. 3local wound care with the Santyl for moist dressing daily and keep the area of pressure, currently waiting for placement no need for antibiotics on discharge Time with Patient: Less than 30
--- NOTE | 2022-01-19 13:56 | P.PN ---
Progress Note - Text Progress Note Date: 01/19/22 Chief Complaint: Hypoxic This is a 61-year-old patient, follows with Dr. Smalls Chronic stable medical conditions include diabetes, hypertension, left below- knee amputation. admitted to the hospital on 11/09/2021 with a right foot nonhealing ulcer. Had been a smoker up to recently. Wound on right heel, wound cultures were positive for Acinetobacter and MRSA. MRI was negative for osteomyelitis. Seen by pain services for chronic pain. Neuropathic pain. Admitted with acute COPD exacerbation, pneumonia, right heel wound. IV Unasyn daptomycin continued. Bronchodilators. Steroids. For neuropathic pain , Neurontin was increased. seen by pain services. Patient was discharged to rehab Was in hospital and not a part of December. Discharged on December 25. Wound on the right heel. Seen by vascular team Dr. Marie. For outpatient follow-up. Was discharged to rehab. She was discharged from rehab to home yesterday. Patient felt he was discharged prematurely. Was discharged without oxygen and no pain medications. He went to live with his daughter. They were not told how to use oxygen. Apparently fell down and bumped his head. No loss of consciousness. As the daughter brought the patient back to the ER. Was placed in trauma to because of his respiratory status. This morning patient feeling much better. Most to go home. Wants pain medications for his foot. January 07: Patient was seen by vascular. Patient to follow-up outpatient. Discussed with ID. Not for antibiotics at the present time. Wound care to continue. The daughter wants the patient to go to rehab. manager managed backup services is involved. Patient eating well. Sitting up in a chair. Pain well controlled. January 08: Up in a chair. Comfortable. Oral intake fair. as per Vascular patient had wound care debridement by Dr. blue last week. Patient being scheduled for right healed surgical wound debridement tomorrow. Many boot to right foot. Relevant to head. Changed [place] 5 every 6 when necessary January 09: Patient is being refused by 2 rehab places. Up in a chair. Comfortable. Pain control. Debridement was canceled because patient had breakfast. January 10: Patient completed Increased pain. [place] increased to 7.5 every 6 when necessary continue with Neurontin. Plan for debridement tomorrow. 2 places from rehab have declined the patient. Daughter is out of town till tomorrow. Hemoglobin 6.7 this morning. 1 unit PRBC ordered. January 14: I resumed care of patient today. Patient had right heel debridement on January [address] Poole. Again there is some area of black ischemia. Offloading reinforced. Patient was agitated earlier today. Received Ativan. Didn't want to eat. Spoke to case consultant. Waiting for authorization. Elevated potassium. Lokelma added. January 15: Patient doing much better today. Communicating. Had his breakfast. IV Dilaudid discontinued. Pain consultation done. Discussed with case consultant. Pending authorization. Santyl wound dressing. With offloading. January 16: Patient is pending authorization. Oral intake variable. Seen by pain management team. Continue on current medication. January 17: Patient is somewhat agitated last night. Required Haldol. Had some breakfast this morning. Earlier the nurse called me that. Patient was tw itching. EKG ordered. Added Risperdal today. 1 mg at night and 0.25 mg the morning. Neurology consulted. EEG ordered. Note that patient's sodium Keppra. Potassium 5.7. Kayexalate 45 g ordered. DC Ness[place]. January 18: Patient was started on Risperdal yesterday. Doing much better this morning. EEG negative for seizure activity. Patient has been declined at rehab. I spoke to Sofi from case management. To expedite discharge January 19: Sitting up in bed. Communicating. Did eat. Had a 20 second episode of change in vision. Seen by neurology Dr. Wolfe. [place] to be a amauroxis fugas. Plavix added. Pain well controlled. Vascular consulted because of known carotid stenosis. Active Medications Hydrocodone Bitart/Acetaminophen (Hydrocodone/Apap 7.5-325mg 1 Each Tab) 1 each PO Q6HR PRN PRN Reason: Moderate Pain Last Admin: 01/19/22 08:57 Dose: 1 each Albuterol/Ipratropium (Ipratropium-Albuterol 3 Ml Neb) 3 ml INHALATION RT-QID [facility] [place] Last Admin: 01/19/22 11:50 Dose: 3 ml Aspirin (Aspirin 81 Mg) 81 mg PO DAILY [facility] [place] Last Admin: 01/19/22 07:32 Dose: 81 mg Atorvastatin Calcium (Atorvastatin 40 Mg Tab) 40 mg PO HS [facility] [place] Last Admin: 01/18/22 21:09 Dose: 40 mg Budesonide (Budesonide 1 Mg/2 Ml Nebu) 1 mg INHALATION RT-BID [facility] [place] Last Admin: 01/19/22 09:06 Dose: 1 mg Bumetanide (Bumetanide 1 Mg Tab) 2 mg PO DAILY [facility] [place] Last Admin: 01/19/22 07:33 Dose: 2 mg Carvedilol (Carvedilol 12.5 Mg Tab) 12.5 mg PO BID [facility] [place] Last Admin: 01/19/22 07:32 Dose: 12.5 mg Clopidogrel Bisulfate (Clopidogrel 75 Mg Tab) 75 mg PO DAILY [facility] [place] Collagenase (Collagenase 250 Unit/Gm Ointment 30 Gm Tube) 1 applic TOPICAL DAILY [facility] [place]; Protocol Last Admin: 01/19/22 07:34 Dose: 1 applic Diphenhydramine HCl (Diphenhydramine 25 Mg Cap) 25 mg PO QID PRN PRN Reason: Allergic Reaction Last Admin: 01/16/22 21:29 Dose: 25 mg Enoxaparin Sodium (Enoxaparin 40 Mg/0.4 Ml Syringe) 40 mg SQ DAILY [facility] [place] Last Admin: 01/19/22 07:31 Dose: 40 mg Gabapentin (Gabapentin 300 Mg Cap) 300 mg PO HS [facility] [place] Last Admin: 01/18/22 21:10 Dose: 300 mg Haloperidol Lactate (Haloperidol Lactate 5 Mg/Ml 1 Ml Vial) 2.5 mg IM Q4HR PRN PRN Reason: Agitation or Acute Psychosis Hydralazine HCl (Hydralazine Hcl 50 Mg Tab) 100 mg PO TID [facility] [place] Last Admin: 01/19/22 07:32 Dose: 100 mg Sodium Chloride (Saline 0.9%) 500 mls @ 10 mls/hr IV .Q24H [facility] [place] Last Admin: 01/18/22 16:51 Dose: Not Given Insulin Aspart (Insulin Aspart (Novolog) 100 Unit/Ml Vial) 10 unit SQ AC-TID [facility] [place] Last Admin: 01/19/22 11:59 Dose: 10 unit Insulin Detemir (Insulin Detemir (Levemir) 100 Unit/Ml Syr) 18 unit SQ HS [facility] [place] Last Admin: 01/18/22 21:10 Dose: 18 unit Levetiracetam (Levetiracetam 500 Mg Tab) 1,000 mg PO BID [facility] [place] Last Admin: 01/19/22 07:33 Dose: 1,000 mg Lidocaine HCl (Lidocaine 1% (10mg/Ml) For Iv Start) 0.1 ml INTRADERMA PER PROTOCOL PRN PRN Reason: IV Start Naloxone HCl (Naloxone 0.4 Mg/Ml 1 Ml Vial) 0.2 mg IV Q2M PRN PRN Reason: Opioid Reversal Ondansetron HCl (Ondansetron 4 Mg/2 Ml Vial) 4 mg IVP Q6HR PRN PRN Reason: Nausea And Vomiting Last Admin: 01/18/22 23:15 Dose: 4 mg Risperidone (Risperidone 1 Mg Tab) 1 mg PO HS [facility] [place] Last Admin: 01/18/22 22:03 Dose: 1 mg Risperidone (Risperidone 0.25 Mg Tab) 0.25 mg PO DAILY [facility] [place] Last Admin: 01/19/22 07:33 Dose: 0.25 mg Ropinirole HCl (Ropinirole Hcl 0.25 Mg Tab) 0.5 mg PO TID [facility] [place] Last Admin: 01/19/22 07:31 Dose: 0.5 mg Tamsulosin HCl (Tamsulosin 0.4 Mg Cap.Er.24h) 0.4 mg PO DAILY [facility] [place] Last Admin: 01/19/22 07:32 Dose: 0.4 mg Past medical history to include: Stroke, diabetes, hypertension, left below-knee amputation, right heel wound, PAD Social history: Discharged to home yesterday from of [place], smoked 2 packs a day for 45 years up October 2021. No alcohol. . 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 Conjunctiva normal. HEENT: External appearance of nose and ears normal, oral cavity grossly normal. NECK: JVD not raised; masses not palpable. HEART: First and second heart sounds are normal; no edema. LUNGS: Respiratory rate increased; decreased breath sounds ABDOMEN: Soft, nontender, liver spleen not palpable, no masses palpable. PSYCH: Answering questions appropriately MUSCULOSKELETAL:No Clubbing/cyanosis;muscles-grossly intact. EXTREMITIES: Right heel necrotic wound. Dressing right lower extremity. Dry skin. Left below-knee amputation INVESTIGATIONS, reviewed in the clinical context: January 18: Potassium 4.7 BUN 37 creatinine 1.41 January 17: White count 11 hemoglobin 8.6 potassium 5.7 BUN 32 creatinine 1.3 January 16: Potassium 5.1 BUN 34 creatinine 1.43 January 06: White count 7.7 hemoglobin 7.1 platelets 301 potassium 5.6. 44 creatinine 1.73 EKG tracing personally reviewed by me-normal sensory. Nonspecific ST-T wave changes. Chest x-ray film personally reviewed by me: Possibly chronic changes Recent admission: Carotid Doppler:Subtotal occlusion right ICA and severe stenosis left ICA December 20: Hemoglobin 7 December 19: Potassium 5.1 BUN 37 creatinine 1.81 2-D echocardiogram: EF 60 - 65% Doppler ultrasound December 10 right lower extremity: Negative for DVT Assessment and plan: -Acute hypoxic respiratory failure from COPD exacerbation: Better Patient is unable to use his oxygen at home. Circumstances unclear. Supplemental oxygen. -Chronic encephalomalacia involving the right frontal lobe. -Subtotal occlusion right ICA and severe stenosis left ICA Follow with Dr. Marie outpatient - Acute COPD exacerbation in a previous smoker: improving DuoNeb 4 times a day. Pulmicort nebulizer twice a day. -Right heel diabetic wound negative for osteomyelitis per recent MRI.: Previous Culture positive for Acinetobacter, MRSA No need for further antibiotics per ID.. Patient had his wound debrided by Dr. blue last week and the wound care center. Debridement done on January [address] Poole.Santyl wound care with offloading -chronic hypoxic respiratory failure from COPD On home oxygen -Acute on chronic Normocytic anemia/iron deficiency anemia Received 1 unit of PRBC -Chronic kidney disease stage III likely diabetic nephropathy and hypertensive nephrosclerosis Creatinine 1.68 on November 09 -Diabetes mellitus type 2, chronically on insulin: Controlled with hypoglycemia Levemir 18 units. 5 units with meals Humalog. Sliding scale. -Essential hypertension Coreg 12.5 mg twice a day hydralazine 100 mg three times a day -Diabetic peripheral neuropathy: Contact Neurontin 300 mg daily at bedtime -Restless leg syndrome: Requip 0.5 mg by mouth 3 times a day -Left below-knee amputation -PAD -Chronic pain. Patient seen by pain management team last admission. [place] 7.5 every 6 when necessary. Neurontin 300 mg daily at bedtime -Hyperkalemia: Better Received Stop Lokelma. Kayexalate 45 g. -Episodes of twitching. No seizure activity -Full code Episode of TIA today. Per neurology Plavix added. Patient has known carotid stenosis. Vascular consulted. Other medications to continue.
[2022-01-19] MEDS: CLOPIDOGREL 75 MG TAB PO SCH (14:29)
--- NOTE | 2022-01-19 15:28 | P.GSCN ---
History of Present Illness Consult date: 01/19/22 History of present illness: Patient is a 61-year-old male we are asked to evaluate regarding visual changes. Reportedly as he was sitting up in bed there was some concern regarding his visual changes. The patient states that both of his eyes had an issue with his vision in that there were red and blue streaks crossing his visual field. There is some conversation with this possibly being amaurosis fugax. Plavix was added. The patient has no further vision abnormalities or issues with unilateral weakness or slurred speech. No other evidence of strokelike symptoms. 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), MRSA, VRE Year Discovered:: 11/30/21 VRE; 11/11/21-MRSA MDRO Source:: Blood-VRE; Right heel-MRSA & MDRO Additional Past Surgical History / Comment(s): BKA right leg Past Anesthesia/Blood Transfusion Reactions: No Reported Reaction Past Psychological History: No Psychological Hx Reported Smoking Status: Current every day smoker Past Alcohol Use History: None Reported Past Drug Use History: None Reported Medications and Allergies Home Medications Medication Instructions Recorded Confirmed Type Ketoconazole 2% Shampoo [Nizoral] 1 applic TOPICAL DIRECTED PRN 11/09/21 01/05/22 History Ticagrelor [Brilinta] 90 mg PO BID 11/09/21 01/05/22 History carvediloL [Coreg] 12.5 mg PO BID 11/09/21 01/05/22 History Ipratropium-Albuterol Nebulize 3 ml INHALATION RT-Q8H 12/18/21 01/05/22 History [Duoneb 0.5 mg-3 mg/3 ml Soln] levETIRAcetam [Keppra] 1,000 mg PO BID 12/18/21 01/05/22 History Aspirin 81 mg PO DAILY 12/21/21 01/05/22 Rx Collagenase [Santyl Ointment] 1 applic TOPICAL DAILY 12/21/21 01/05/22 Rx hydrALAZINE HCL [Apresoline] 100 mg PO TID #0 12/21/21 01/05/22 Rx Atorvastatin [Lipitor] 40 mg PO HS tab 12/25/21 01/05/22 Rx Bumetanide [BUMEX] 2 mg PO DAILY 01/05/22 01/05/22 History Tamsulosin [Flomax] 0.4 mg PO DAILY 01/05/22 01/05/22 History rOPINIRole HCL [Requip] 0.5 mg PO TID 01/05/22 01/05/22 History Insulin Detemir (Levemir) [Levemir] 22 unit SQ HS #0 each 01/08/22 01/05/22 Rx Insulin Lispro [humaLOG Kwikpen] 8 units SQ AC-TID #0 01/08/22 01/05/22 Rx Gabapentin [Neurontin] 300 mg PO HS #3 cap 01/17/22 Rx HYDROcodone/APAP 7.5-325MG [[place] 1 each PO Q6HR PRN #12 tab 01/17/22 Rx 7.5-325] risperiDONE [RisperDAL] 0.25 mg PO DAILY #3 tab 01/17/22 Rx risperiDONE [RisperDAL] 1 mg PO HS #3 tab 01/17/22 Rx Allergies Allergy/AdvReac Type Severity Reaction Status Date / Time ampicillin [From Unasyn] Allergy Rash/Hives Verified 01/05/22 20:37 sulbactam [From Unasyn] Allergy Rash/Hives Verified 01/05/22 20:37 Surgical - Exam Vital Signs Temp Pulse Resp BP Pulse Ox 98.2 F 105 H 20 149/65 96 01/05/22 20:33 01/05/22 20:33 01/05/22 20:33 01/05/22 20:33 01/05/22 20:33 Gen, is a pleasant cooperative male in no acute distress. HEENT is normocephalic. Atraumatic. Motion intact. Left lower extremity amputation. Right heel wound dressing in place. Normal mood and affect. Cranial nerves II through XII grossly intact Results - Labs 01/17/22 04:36 01/18/22 01:27 Abnormal Lab Results - Last 24 Hours (Table) 01/18/22 01/18/22 01/19/22 Range/Units 16:40 20:14 07:18 POC Glucose (mg/dL) 199 H 204 H 265 H (70-110) mg/dL 06/18/22 Range/Units 11:10 POC Glucose (mg/dL) 224 H (70-110) mg/dL Assessment and Plan Assessment: Reported vision changes Known carotid stenosis Plan: Imaging is reviewed. Discussion was had with the patient. It is negative his visual changes of the bilateral muscle was due to an underlying hypotension episode however there is no evidence of this on clinical exam or vitals. Regardless given his ultrasound findings of Right ICA stenosis with reported subtotal occlusion however the ICA velocity is 39 the common carotid velocity is 32 Ratio of 1.2. , I would question if this is due to more proximal occlusion/stenosis on the common carotid artery There is elevated velocity of the right external carotid artery. On the left there is elevated velocity 254 and a ratio of 2.1. Per velocity criteria this be greater than 70% stenosis. Again given his findings the patient will need a CT angiogram of his neck for further evaluation. He needs appropriate fluid management and likely a bolus prior to exam
[2022-01-19] MEDS: SODIUM CHLORIDE 0.9% 500 ML 500 ML IV SCH (16:34)
--- NOTE | 2022-01-19 17:02 | P.CNNES ---
History of Present Illness Consult date: 01/18/22 Requesting physician: Graham He Reason for Consult: Spastic movements History of Present Illness: Patient is a 61-year-old male with history of diabetes, BKA left leg, CVA, who came to the hospital on 01/05/2022 for shortness of breath and elevated blood glucose. Patient was treated for acute hypoxic respiratory failure for COPD, right heel diabetic wound, chronic pain. Patient had a rapid response team activated yesterday for episode of altered mental status, agitation. Patient was given Zyprexa. Sitter was present by the bedside, who mentions that patient is much better today as compared to yesterday. Yesterday his whole body was spasming, shaking. He slept most of the day yesterday. He was very confused, did not know what building he is in, was not eating, would best the food. He couldn't urinate and was not getting out of bed. Today he is better. The sitter who knows him from previous admission states that previously he has normal mentation, would get in his wheelchair and would be using his wheelchair in the hallways. Patient apparently also has history of seizure disorder for which he is on Keppra. Patient does not know details about his seizures, but believes that he has been on Keppra for last 5-6 months. Patient has never smoked pot. He has smoked 2-3 packs per day, for 20 years. He lives with his daughter and fianc. He has been wheelchair-bound since he had undergone left-sided BKA 7 months ago. He has never smoked pot. CT head showed old right frontal infarct. No other acute process. I personally reviewed CT head and agree with the findings. Chest x-ray revealed persistent moderate interstitial opacities throughout both lungs. Patient's blood test shows WBC 11.0, hemoglobin 8.6, platelets 331. PT/PTT normal. Patient's ABG yesterday on 01/17/2022 shows pH of 7.33, pCO2 53, pO2 62 and saturation 91%. Hemoglobin A1c 8.9% on 11/10/2021. B12 is normal 475. Lipid panel with cholesterol 244, LDL 169, HDL 33 and triglycerides 206. Patient currently is on aspirin 81 mg daily. Patient had a carotid Doppler performed on last admission 12/20/2021, which revealed subtotal occlusion of the right ICA. I had discussed with vascular team Paola Sanchez, , who has recommended that patient will undergo CEA as an outpatient in one to 2 weeks. Patient was on Brilinta 90 mg twice a day and aspirin 81 mg daily at that time. Review of Systems As above in HPI. Patient has chronic pain issues. He has left BKA. Patient has cough. No chest pain or abdominal pain nausea vomiting diarrhea. 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), MRSA, VRE Date of last positivie culture/infection: 11/30/21 VRE; 11/11/21-MRSA MDRO Source:: Blood-VRE; Right heel-MRSA & MDRO Additional Past Surgical History / Comment(s): BKA right leg Past Anesthesia/Blood Transfusion Reactions: No Reported Reaction Past Psychological History: No Psychological Hx Reported Smoking Status: Current every day smoker Past Alcohol Use History: None Reported Past Drug Use History: None Reported Medications and Allergies Home Medications Medication Instructions Recorded Confirmed Type Ketoconazole 2% Shampoo [Nizoral] 1 applic TOPICAL DIRECTED PRN 11/09/21 01/05/22 History Ticagrelor [Brilinta] 90 mg PO BID 11/09/21 01/05/22 History carvediloL [Coreg] 12.5 mg PO BID 11/09/21 01/05/22 History Ipratropium-Albuterol Nebulize 3 ml INHALATION RT-Q8H 12/18/21 01/05/22 History [Duoneb 0.5 mg-3 mg/3 ml Soln] levETIRAcetam [Keppra] 1,000 mg PO BID 12/18/21 01/05/22 History Aspirin 81 mg PO DAILY 12/21/21 01/05/22 Rx Collagenase [Santyl Ointment] 1 applic TOPICAL DAILY 12/21/21 01/05/22 Rx hydrALAZINE HCL [Apresoline] 100 mg PO TID #0 12/21/21 01/05/22 Rx Atorvastatin [Lipitor] 40 mg PO HS tab 12/25/21 01/05/22 Rx Bumetanide [BUMEX] 2 mg PO DAILY 01/05/22 01/05/22 History Tamsulosin [Flomax] 0.4 mg PO DAILY 01/05/22 01/05/22 History rOPINIRole HCL [Requip] 0.5 mg PO TID 01/05/22 01/05/22 History Insulin Detemir (Levemir) [Levemir] 22 unit SQ HS #0 each 01/08/22 01/05/22 Rx Insulin Lispro [humaLOG Kwikpen] 8 units SQ AC-TID #0 01/08/22 01/05/22 Rx Gabapentin [Neurontin] 300 mg PO HS #3 cap 01/17/22 Rx HYDROcodone/APAP 7.5-325MG [Zirconia 1 each PO Q6HR PRN #12 tab 01/17/22 Rx 7.5-325] risperiDONE [RisperDAL] 0.25 mg PO DAILY #3 tab 01/17/22 Rx risperiDONE [RisperDAL] 1 mg PO HS #3 tab 01/17/22 Rx Allergies Allergy/AdvReac Type Severity Reaction Status Date / Time ampicillin [From Unasyn] Allergy Rash/Hives Verified 01/05/22 20:37 sulbactam [From Unasyn] Allergy Rash/Hives Verified 01/05/22 20:37 Physical Examination - Vital Signs Vital Signs: Vital Signs Temp Pulse Pulse Pulse Resp BP Pulse Ox 01/19/22 14:00 98.7 F 92 22 151/65 97 01/19/22 12:01 88 16 01/19/22 11:50 90 16 01/19/22 09:18 93 01/19/22 09:10 98 01/19/22 09:06 91 01/19/22 07:49 98.6 F 93 20 179/71 95 01/19/22 01:11 98.6 F 90 20 156/70 93 L 01/18/22 21:05 90 01/18/22 20:50 88 01/18/22 20:00 84 20 01/18/22 17:29 98.5 F 84 20 122/64 96 01/18/22 17:12 90 01/18/22 17:02 90 Intake and Output 01/19/22 01/19/22 01/19/22 06:59 14:59 22:59 Output Total 500 450 Balance -500 -450 Output: Urine 500 450 Other: Voiding Method Urinal # Voids 1 Patient is a late middle aged male, in no acute distress. Patient is slightly encephalopathic, but is alert and awake. He states it is December and the year is 2021. He knows he is in [facility]. Speech and language functions are normal. No aphasia or dysarthria. Attention, concentration and fund of knowledge is slightly limited. On cranial examination, pupils are round and reacting to light, visual butler are full on confrontation, extraocular muscles are intact with no nystagmus. Face is symmetric, tongue protrudes to the midline. Palatal elevation and sensation normal, hearing and shoulder shrug normal, facial sensation normal. Shoulder shrug normal. On muscle strength testing, there is no pronator drift and the strength is normal in arms distally and proximally except left leasing consultant which is 5-. Patient has left below-knee amputation. Patient's right leg is quite weak. He did not cooperate with the examination as well. Deep tendon reflexes are trace in the upper limbs, 1+ at knees. Patient's plantar is flat on the right. Sensory to touch is equal with no neglect. Cerebellar function showed no ataxia for bzauye-ax-mjer testing. Tone and bulk of muscles normal. Gait not checked. Patient is in wheelchair because of amputation. On general examination, there is a carotid bruit. No murmur, S1-S2 audible. Abdomen is soft nontender. No organomegaly, bowel sounds present Chest is clear. Results - Laboratory Findings CBC and BMP: 01/17/22 04:36 01/18/22 01:27 Abnormal Lab Findings: Abnormal Labs 01/05/22 01/05/22 01/05/22 21:37 21:37 21:37 WBC RBC 3.04 L Hgb 8.2 L Hct 28.8 L MCHC 28.6 L RDW Neutrophils # Lymphocytes # APTT 34.8 H ABG pH ABG pCO2 ABG pO2 ABG HCO3 ABG Total CO2 ABG O2 Saturation Potassium 5.8 H Chloride Carbon Dioxide Anion Gap BUN 43 H Creatinine 1.90 H Est GFR (CKD-EPI)AfAm Est GFR (CKD-EPI)NonAf BUN/Creatinine Ratio Glucose 253 H POC Glucose (mg/dL) Calcium 8.1 L Albumin 3.4 L Crossmatch 01/06/22 01/06/22 01/06/22 06:53 07:53 07:53 WBC RBC 2.56 L Hgb 7.1 L Hct 24.0 L MCHC 29.8 L RDW 16.0 H Neutrophils # Lymphocytes # APTT ABG pH ABG pCO2 ABG pO2 ABG HCO3 ABG Total CO2 ABG O2 Saturation Potassium 5.6 H Chloride 112 H Carbon Dioxide Anion Gap BUN 44 H Creatinine 1.73 H Est GFR (CKD-EPI)AfAm Est GFR (CKD-EPI)NonAf BUN/Creatinine Ratio Glucose 131 H POC Glucose (mg/dL) 144 H Calcium 7.5 L Albumin Crossmatch 01/06/22 01/06/22 01/06/22 09:46 11:50 16:35 WBC RBC Hgb Hct MCHC RDW Neutrophils # Lymphocytes # APTT ABG pH ABG pCO2 ABG pO2 ABG HCO3 ABG Total CO2 ABG O2 Saturation Potassium Chloride Carbon Dioxide Anion Gap BUN Creatinine Est GFR (CKD-EPI)AfAm Est GFR (CKD-EPI)NonAf BUN/Creatinine Ratio Glucose POC Glucose (mg/dL) 139 H 159 H >600 H Calcium Albumin Crossmatch 01/06/22 01/06/22 01/07/22 16:37 20:32 06:39 WBC RBC 2.50 L Hgb 7.0 L Hct 23.5 L MCHC 29.5 L RDW 16.0 H Neutrophils # Lymphocytes # APTT ABG pH ABG pCO2 ABG pO2 ABG HCO3 ABG Total CO2 ABG O2 Saturation Potassium Chloride Carbon Dioxide Anion Gap BUN Creatinine Est GFR (CKD-EPI)AfAm Est GFR (CKD-EPI)NonAf BUN/Creatinine Ratio Glucose POC Glucose (mg/dL) 532 H 147 H Calcium Albumin Crossmatch 01/07/22 01/07/22 01/07/22 06:39 06:54 11:34 WBC RBC Hgb Hct MCHC RDW Neutrophils # Lymphocytes # APTT ABG pH ABG pCO2 ABG pO2 ABG HCO3 ABG Total CO2 ABG O2 Saturation Potassium Chloride 112 H Carbon Dioxide 21 L Anion Gap BUN 42 H Creatinine 1.62 H Est GFR (CKD-EPI)AfAm Est GFR (CKD-EPI)NonAf BUN/Creatinine Ratio Glucose 183 H POC Glucose (mg/dL) 197 H 102 H Calcium 7.6 L Albumin Crossmatch 01/07/22 01/07/22 01/08/22 16:16 20:06 06:48 WBC RBC Hgb Hct MCHC RDW Neutrophils # Lymphocytes # APTT ABG pH ABG pCO2 ABG pO2 ABG HCO3 ABG Total CO2 ABG O2 Saturation Potassium Chloride Carbon Dioxide Anion Gap BUN Creatinine Est GFR (CKD-EPI)AfAm Est GFR (CKD-EPI)NonAf BUN/Creatinine Ratio Glucose POC Glucose (mg/dL) 180 H 173 H 169 H Calcium Albumin Crossmatch 01/08/22 01/08/22 01/09/22 16:33 21:02 06:48 WBC RBC Hgb Hct MCHC RDW Neutrophils # Lymphocytes # APTT ABG pH ABG pCO2 ABG pO2 ABG HCO3 ABG Total CO2 ABG O2 Saturation Potassium Chloride Carbon Dioxide Anion Gap BUN Creatinine Est GFR (CKD-EPI)AfAm Est GFR (CKD-EPI)NonAf BUN/Creatinine Ratio Glucose POC Glucose (mg/dL) 352 H 157 H 131 H Calcium Albumin Crossmatch 01/09/22 01/09/22 01/09/22 11:21 16:56 20:52 WBC RBC Hgb Hct MCHC RDW Neutrophils # Lymphocytes # APTT ABG pH ABG pCO2 ABG pO2 ABG HCO3 ABG Total CO2 ABG O2 Saturation Potassium Chloride Carbon Dioxide Anion Gap BUN Creatinine Est GFR (CKD-EPI)AfAm Est GFR (CKD-EPI)NonAf BUN/Creatinine Ratio Glucose POC Glucose (mg/dL) 160 H 244 H 217 H Calcium Albumin Crossmatch 01/10/22 01/10/22 01/10/22 06:49 06:56 06:56 WBC RBC 2.46 L Hgb 6.7 L* Hct 23.2 L MCHC 28.7 L RDW Neutrophils # Lymphocytes # 0.9 L APTT ABG pH ABG pCO2 ABG pO2 ABG HCO3 ABG Total CO2 ABG O2 Saturation Potassium Chloride 109 H Carbon Dioxide Anion Gap BUN 39 H Creatinine 1.70 H Est GFR (CKD-EPI)AfAm Est GFR (CKD-EPI)NonAf BUN/Creatinine Ratio Glucose 157 H POC Glucose (mg/dL) 174 H Calcium 8.1 L Albumin Crossmatch 01/10/22 01/10/22 01/10/22 10:02 11:50 13:41 WBC RBC 2.29 L Hgb 6.3 L* Hct 21.6 L MCHC 29.1 L RDW Neutrophils # Lymphocytes # APTT ABG pH ABG pCO2 ABG pO2 ABG HCO3 ABG Total CO2 ABG O2 Saturation Potassium Chloride Carbon Dioxide Anion Gap BUN Creatinine Est GFR (CKD-EPI)AfAm Est GFR (CKD-EPI)NonAf BUN/Creatinine Ratio Glucose POC Glucose (mg/dL) 134 H Calcium Albumin Crossmatch See Detail 01/10/22 01/10/22 01/11/22 16:27 20:55 07:21 WBC RBC Hgb Hct MCHC RDW Neutrophils # Lymphocytes # APTT ABG pH ABG pCO2 ABG pO2 ABG HCO3 ABG Total CO2 ABG O2 Saturation Potassium Chloride Carbon Dioxide Anion Gap BUN Creatinine Est GFR (CKD-EPI)AfAm Est GFR (CKD-EPI)NonAf BUN/Creatinine Ratio Glucose POC Glucose (mg/dL) 132 H 172 H 136 H Calcium Albumin Crossmatch 01/11/22 01/11/22 01/11/22 11:19 12:50 17:46 WBC RBC 2.73 L Hgb 7.5 L Hct 25.5 L MCHC 29.5 L RDW Neutrophils # Lymphocytes # APTT ABG pH ABG pCO2 ABG pO2 ABG HCO3 ABG Total CO2 ABG O2 Saturation Potassium Chloride Carbon Dioxide Anion Gap BUN Creatinine Est GFR (CKD-EPI)AfAm Est GFR (CKD-EPI)NonAf BUN/Creatinine Ratio Glucose POC Glucose (mg/dL) 126 H 148 H Calcium Albumin Crossmatch 01/11/22 01/12/22 01/12/22 20:53 06:19 09:25 WBC RBC Hgb Hct MCHC RDW Neutrophils # Lymphocytes # APTT ABG pH ABG pCO2 ABG pO2 ABG HCO3 ABG Total CO2 ABG O2 Saturation Potassium Chloride Carbon Dioxide Anion Gap BUN Creatinine Est GFR (CKD-EPI)AfAm Est GFR (CKD-EPI)NonAf BUN/Creatinine Ratio Glucose POC Glucose (mg/dL) 118 H 158 H 200 H Calcium Albumin Crossmatch 01/12/22 01/12/22 01/12/22 12:02 16:35 21:15 WBC RBC Hgb Hct MCHC RDW Neutrophils # Lymphocytes # APTT ABG pH ABG pCO2 ABG pO2 ABG HCO3 ABG Total CO2 ABG O2 Saturation Potassium Chloride Carbon Dioxide Anion Gap BUN Creatinine Est GFR (CKD-EPI)AfAm Est GFR (CKD-EPI)NonAf BUN/Creatinine Ratio Glucose POC Glucose (mg/dL) 157 H 126 H 239 H Calcium Albumin Crossmatch 01/13/22 01/13/22 01/13/22 07:12 07:38 11:24 WBC RBC Hgb Hct MCHC RDW Neutrophils # Lymphocytes # APTT ABG pH ABG pCO2 ABG pO2 ABG HCO3 ABG Total CO2 ABG O2 Saturation Potassium 5.6 H Chloride Carbon Dioxide Anion Gap BUN 43 H Creatinine 1.67 H Est GFR (CKD-EPI)AfAm Est GFR (CKD-EPI)NonAf BUN/Creatinine Ratio Glucose 101 H POC Glucose (mg/dL) 120 H 156 H Calcium Albumin Crossmatch 01/13/22 01/13/22 01/14/22 16:32 21:03 06:53 WBC RBC Hgb Hct MCHC RDW Neutrophils # Lymphocytes # APTT ABG pH ABG pCO2 ABG pO2 ABG HCO3 ABG Total CO2 ABG O2 Saturation Potassium Chloride Carbon Dioxide Anion Gap BUN Creatinine Est GFR (CKD-EPI)AfAm Est GFR (CKD-EPI)NonAf BUN/Creatinine Ratio Glucose POC Glucose (mg/dL) 203 H 172 H 139 H Calcium Albumin Crossmatch 01/14/22 01/14/22 01/14/22 14:48 17:00 21:22 WBC RBC Hgb Hct MCHC RDW Neutrophils # Lymphocytes # APTT ABG pH ABG pCO2 ABG pO2 ABG HCO3 ABG Total CO2 ABG O2 Saturation Potassium 5.9 H Chloride Carbon Dioxide Anion Gap 9.70 L BUN 37.5 H Creatinine Est GFR (CKD-EPI)AfAm 56.1 L Est GFR (CKD-EPI)NonAf 48.4 L BUN/Creatinine Ratio 24.51 H Glucose POC Glucose (mg/dL) 116 H 146 H Calcium Albumin Crossmatch 01/15/22 01/15/22 01/15/22 06:51 14:36 17:08 WBC RBC Hgb Hct MCHC RDW Neutrophils # Lymphocytes # APTT ABG pH ABG pCO2 ABG pO2 ABG HCO3 ABG Total CO2 ABG O2 Saturation Potassium 5.5 H Chloride 108 H Carbon Dioxide Anion Gap BUN 40 H Creatinine 1.54 H Est GFR (CKD-EPI)AfAm Est GFR (CKD-EPI)NonAf BUN/Creatinine Ratio Glucose 140 H POC Glucose (mg/dL) 212 H 168 H Calcium Albumin Crossmatch 01/15/22 01/16/22 01/16/22 20:16 07:20 09:11 WBC RBC Hgb Hct MCHC RDW Neutrophils # Lymphocytes # APTT ABG pH ABG pCO2 ABG pO2 ABG HCO3 ABG Total CO2 ABG O2 Saturation Potassium Chloride 110 H Carbon Dioxide Anion Gap BUN 34 H Creatinine 1.43 H Est GFR (CKD-EPI)AfAm Est GFR (CKD-EPI)NonAf BUN/Creatinine Ratio Glucose 129 H POC Glucose (mg/dL) 197 H 108 H Calcium Albumin Crossmatch 01/16/22 01/16/22 01/16/22 11:48 16:53 19:24 WBC RBC Hgb Hct MCHC RDW Neutrophils # Lymphocytes # APTT ABG pH ABG pCO2 ABG pO2 ABG HCO3 ABG Total CO2 ABG O2 Saturation Potassium Chloride Carbon Dioxide Anion Gap BUN Creatinine Est GFR (CKD-EPI)AfAm Est GFR (CKD-EPI)NonAf BUN/Creatinine Ratio Glucose POC Glucose (mg/dL) 147 H 157 H 170 H Calcium Albumin Crossmatch 01/17/22 01/17/22 01/17/22 04:24 04:36 04:36 WBC 11.0 H RBC 3.08 L Hgb 8.6 L Hct 29.3 L MCHC 29.5 L RDW 16.0 H Neutrophils # 9.5 H Lymphocytes # 0.6 L APTT ABG pH 7.33 L ABG pCO2 53 H ABG pO2 62 L ABG HCO3 28 H ABG Total CO2 29 H ABG O2 Saturation 91.2 L Potassium 5.7 H Chloride 109 H Carbon Dioxide Anion Gap BUN 32 H Creatinine 1.30 H Est GFR (CKD-EPI)AfAm Est GFR (CKD-EPI)NonAf BUN/Creatinine Ratio Glucose 162 H POC Glucose (mg/dL) Calcium Albumin Crossmatch 01/17/22 01/17/22 01/17/22 07:11 11:20 16:15 WBC RBC Hgb Hct MCHC RDW Neutrophils # Lymphocytes # APTT ABG pH ABG pCO2 ABG pO2 ABG HCO3 ABG Total CO2 ABG O2 Saturation Potassium Chloride Carbon Dioxide Anion Gap BUN Creatinine Est GFR (CKD-EPI)AfAm Est GFR (CKD-EPI)NonAf BUN/Creatinine Ratio Glucose POC Glucose (mg/dL) 159 H 184 H 213 H Calcium Albumin Crossmatch 06/01/18/22 01/18/22 21:45 01:27 07:27 WBC RBC Hgb Hct MCHC RDW Neutrophils # Lymphocytes # APTT ABG pH ABG pCO2 ABG pO2 ABG HCO3 ABG Total CO2 ABG O2 Saturation Potassium Chloride 108 H Carbon Dioxide 34 H Anion Gap BUN 37 H Creatinine 1.41 H Est GFR (CKD-EPI)AfAm Est GFR (CKD-EPI)NonAf BUN/Creatinine Ratio Glucose 142 H POC Glucose (mg/dL) 191 H 199 H Calcium 8.2 L Albumin Crossmatch 01/18/22 01/18/22 01/18/22 11:23 16:40 20:14 WBC RBC Hgb Hct MCHC RDW Neutrophils # Lymphocytes # APTT ABG pH ABG pCO2 ABG pO2 ABG HCO3 ABG Total CO2 ABG O2 Saturation Potassium Chloride Carbon Dioxide Anion Gap BUN Creatinine Est GFR (CKD-EPI)AfAm Est GFR (CKD-EPI)NonAf BUN/Creatinine Ratio Glucose POC Glucose (mg/dL) 178 H 199 H 204 H Calcium Albumin Crossmatch 01/19/22 01/19/22 07:18 11:10 WBC RBC Hgb Hct MCHC RDW Neutrophils # Lymphocytes # APTT ABG pH ABG pCO2 ABG pO2 ABG HCO3 ABG Total CO2 ABG O2 Saturation Potassium Chloride Carbon Dioxide Anion Gap BUN Creatinine Est GFR (CKD-EPI)AfAm Est GFR (CKD-EPI)NonAf BUN/Creatinine Ratio Glucose POC Glucose (mg/dL) 265 H 224 H Calcium Albumin Crossmatch Assessment and Plan Assessment: * Altered mental status, likely due to delirium, perhaps related to toxic metabolic encephalopathy. Reasons multifactorial as below. 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 seizure disorder. * Diabetes * Hypertension * Peripheral arterial disease * Bilateral ICA stenosis, subtotal occlusion on the right, severe on left * Chronic renal disease * Anemia * Hypertension * Tobacco use * Diabetic foot ulcer * Status post left BKA * Chronic pain Plan: * EEG was performed today, which was abnormal due to background slowing of moderate degree. This is suggestive of generalized cerebral dysfunction as can be seen with toxic metabolic encephalopathy or related to diffuse structural brain abnormality. Clinical correlation is recommended. No epileptiform activity was seen. * Patient currently on Keppra 1000 mg every 12 hour, which will be continued. * I will try to speak to patient's caregivers about his ?history of seizures, and the reason being on Keppra. * Patient's mentation is much improved today. Avoid opiates, anticholinergics. * Patient has history of remote CVA, bilateral ICA stenosis. Continue aspirin 81 mg daily. Patient follows up with Dr. Thibodeaux. * Lipid panel with cholesterol 244, LDL 169, HDL 33 and triglycerides 206. We will increase Lipitor to 80 mg daily. * Optimize control of diabetes, target A1c <7.0 (current A1c 8.9). Patient's B12 is 475. * We will continue to follow. * Medical management as per IM and other specialties. Time with Patient: Greater than 30
--- NOTE | 2022-01-19 17:39 | P.PN ---
Subjective Progress Note Date: 01/19/22 This is a telemedicine neurology follow performed today on 01/19/2022. Patient is laying comfortably in the bed. Patient states that today he had an episode while he was sitting in the chair, when he developed color flashing in his right eye. It consisted of different color, lasted for around 20 seconds. It has first time ever happened. He says that he could not see well on the right side at that time. He became scared. The symptoms have resolved. Symptoms suggestive of probable amaurosis fugax. Patient does have history of subtotal occlusion of the right ICA. I spoke to patient's significant other Betsy, whom he has lived in the past. Currently patient is living with his daughter. She states that for about 1-1/2-3 years, he has been having episodes in which his hands and feet move, and it lasts for couple minutes. She states that it looks like "petit mal seizures" like her son has been diagnosed with. Patient states that these episodes were occurring almost once every 2 weeks. At one point he was in [facility], where he was seen by neurologist, and was diagnosed with possible seizures, started on Keppra. She states that they were told that the seizures are due to "poison running in his blood from ischemic limb". She does not remember if he has seen any neurologist as an outpatient. Patient was started on Keppra in August or September 2021 when he stopped having those spells. She is also aware that patient has been diagnosed with "clogged arteries in his neck"for the last 1-1/2 to 3 years. Objective - Vital Signs Vital signs: Vital Signs Temp 98.7 F 01/19/22 14:00 Pulse 91 01/19/22 16:40 Resp 22 01/19/22 14:00 BP 151/65 01/19/22 14:00 Pulse Ox 97 01/19/22 16:24 FiO2 4 01/11/22 00:00 Intake & Output 01/18/22 01/19/22 01/19/22 18:59 06:59 18:59 Output Total 350 500 450 Balance -350 -500 -450 Output: Urine 350 500 450 Other: Voiding Method Urinal Urinal Urinal # Voids 4 1 # Bowel Movements 1 - Exam Patient is alert and awake, no distress. Speech and language functions are n ormal. Detailed testing deferred. - Labs CBC & Chem 7: 01/17/22 04:36 01/18/22 01:27 Labs: Abnormal Lab Results - Last 24 Hours (Table) 01/18/22 01/19/22 01/19/22 Range/Units 20:14 07:18 11:10 POC Glucose (mg/dL) 204 H 265 H 224 H (70-110) mg/dL Assessment and Plan Assessment: * Altered mental status, likely due to delirium, perhaps related to toxic metabolic encephalopathy. Reasons multifactorial as below. * Transient visual disturbance right side of his vision (?Right eye), possible amaurosis fugax. Symptoms resolved in around 20 seconds. 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 seizure disorder. * Diabetes * Hypertension * Peripheral arterial disease * Bilateral ICA stenosis, subtotal occlusion on the right, severe on left * Chronic renal disease * Anemia * Hypertension * Tobacco use * Diabetic foot ulcer * Status post left BKA * Chronic pain Plan: * Patient had a transient visual disturbance right eye, suggestive of possible amaurosis fugax. Patient has history of severe carotid artery disease. We will consult vascular surgery. * Patient is currently on aspirin. We will add Plavix 75 mg daily. Discussed with primary physician Dr. He as well. Agreed with the plan. * EEG 01/18/2022 was abnormal due to background slowing of moderate degree. This is suggestive of generalized cerebral dysfunction as can be seen with toxic metabolic encephalopathy or related to diffuse structural brain abnormality. Clinical correlation is recommended. No epileptiform activity was seen. * Patient currently on Keppra 1000 mg every 12 hour, which will be continued. Spoke to patient's significant other, who states that patient used to have some tremor type movements of arms and legs, lasting for a couple minutes. These episodes resolve after he was started on Keppra. Patient's significant other was recommended to have patient follow up with neurologist as an outpati ent. * Patient's mentation is much improved today. Avoid opiates, anticholinergics. * Lipid panel with cholesterol 244, LDL 169, HDL 33 and triglycerides 206. We will increase Lipitor to 80 mg daily. * Optimize control of diabetes, target A1c <7.0 (current A1c 8.9). Patient's B12 is 475. * Medical management as per IM and other specialties.
[2022-01-19 20:27] LABS: Glucose,Whole Blood 217 mg/dL (70-110)
[2022-01-19] MEDS: risperiDONE 1 MG TAB PO SCH (20:52)
[2022-01-19] MEDS: GABAPENTIN 300 MG CAP PO SCH (20:52)
[2022-01-19] MEDS: INSULIN DETEMIR (LEVEMIR) 100 UNIT/ML SYR SQ SCH (21:53)
[2022-01-19] MEDS: ATORVASTATIN 40 MG TAB PO SCH (21:53)
[2022-01-19] MEDS: diphenhydrAMINE 25 MG CAP PO PRN (23:21)
[2022-01-20] MEDS: HYDROcodone/APAP 7.5-325MG 1 EACH TAB PO PRN ×4 (05:00→22:47)
[2022-01-20 07:02] LABS: Glucose,Whole Blood 257 mg/dL (70-110)
[2022-01-20] MEDS: BUDESONIDE 1 MG/2 ML NEBU INHALATION SCH ×2 (08:03→20:06)
[2022-01-20] MEDS: IPRATROPIUM-ALBUTEROL 3 ML NEB INHALATION SCH ×4 (08:03→20:06)
[2022-01-20] MEDS: HALOPERIDOL LACTATE 5 MG/ML 1 ML VIAL IM PRN ×2 (08:39→14:19)
[2022-01-20] MEDS: ENOXAPARIN 40 MG/0.4 ML SYRINGE SQ SCH (10:21)
[2022-01-20] MEDS: INSULIN ASPART (NovoLOG) 100 UNIT/ML VIAL SQ SCH ×3 (10:21→17:34)
[2022-01-20] MEDS: BUMETANIDE 1 MG TAB PO SCH (10:22)
[2022-01-20] MEDS: ASPIRIN 81 MG PO SCH (10:22)
[2022-01-20] MEDS: levETIRAcetam 500 MG TAB PO SCH ×2 (10:22→20:13)
[2022-01-20] MEDS: CLOPIDOGREL 75 MG TAB PO SCH (10:22)
[2022-01-20] MEDS: carvediloL 12.5 MG TAB PO SCH ×2 (10:22→20:12)
[2022-01-20] MEDS: hydrALAZINE HCL 50 MG TAB PO SCH ×3 (10:22→20:12)
--- NOTE | 2022-01-20 10:22 | CT ---
EXAMINATION TYPE: CT angio neck CT DLP: 696.1 mGycm, Automated exposure control for dose reduction was used. DATE OF EXAM: 01/20/2022 10:00 AM COMPARISON: None. CLINICAL INDICATION:Male, 61 years old with history of vision changes, carotid stenosis, stenosis TECHNIQUE: Axially acquired helical CT angiogram of the neck was obtained with contrast utilizing 65 cc of Isovue-370 administered intravenously. Axial images are supplemented with 3D reconstructions wh ich were post-processed at an independent workstation. NASCET criteria used. FINDINGS: CTA NECK: Right Carotid System: The common carotid artery origin is patent. The external carotid artery is loz[place] nt. The internal carotid artery is nonopacified extending from the bifurcation into the [place]. Left Carotid System: The common carotid artery and external carotid artery are patent. The carotid bifurcation demonstrate s calcified and noncalcified plaquing with less than 50% stenosis. The remaining portions of the inte rnal carotid artery demonstrate normal size without significant narrowing. Vertebral arteries are patent without evidence hemodynamically significant stenosis. There is a three-vessel aortic arch. The origins of the great vessels are patent. No evidence of hemo dynamically significant stenosis. Other: There is bilateral pleural effusions with associated atelectasis. There is mediastinal lymphad enopathy example includes 14 mm in short axis AP window, subcarinal measuring 10 mm and right low par atracheal measuring up to 10 mm. There is right pulmonary hilum conglomerate lymphadenopathy measurin g 3.8 x 2.1 cm. The pulmonary trunk is dilated measuring up to 3.5 cm. Visualized pulmonary arterial vasculature does not demonstrates filling defect. IMPRESSION: 1. Occluded internal carotid artery extending from the bifurcation into the visualized cavernous port ion. 2. Left carotid system is patent with less than 50% stenosis at the carotid bifurcation. 3. Bilateral pleural effusions with the dilated pulmonary trunk which could represent pulmonary hyper tension. 4. Mediastinal and right pulmonary hilum lymphadenopathy which could be secondary to congestive heart failure with underlying malignancy not entirely excluded, comparisons with priors at outside institu tion and clinical correlation is advised. NASCET criteria was used in interpretation of this exam?
[2022-01-20] MEDS: risperiDONE 0.25 MG TAB PO SCH (10:23)
[2022-01-20] MEDS: TAMSULOSIN 0.4 MG CAP.ER.24H PO SCH (10:23)
[2022-01-20] MEDS: COLLAGENASE 250 UNIT/GM OINTMENT 30 GM TUBE TOPICAL SCH (10:24)
[2022-01-20 11:52] LABS: Glucose,Whole Blood 164 mg/dL (70-110)
[2022-01-20] MEDS ORDERED: FUROSEMIDE 10 MG/ML 10 ML VIAL IV SCH (13:30)
[2022-01-20] MEDS ORDERED: BUMETANIDE 0.25 MG/ML 10 ML VIAL IV SCH (13:30)
[2022-01-20 13:58] LABS: ALT 10 U/L (4-49); African American GFR (CKD) 58 (>60 ml/min/1.73 sqM); Albumin 3.3 g/dL (3.5-5.0); Albumin/Globulin Ratio 0.9; Anion Gap 5 mmol/L; Blood Urea Nitrogen 38 mg/dL (9-20); Carbon Dioxide 31 mmol/L (22-30); Chloride 106 mmol/L (98-107); Globulin 3.7 g/dL; Glucose 124 mg/dL (74-99); Non-African American GFR(CKD) 51 (>60 ml/min/1.73 sqM); Sodium 142 mmol/L (137-145); Total Bilirubin 0.4 mg/dL (0.2-1.3)
[2022-01-20 14:02] LABS: AST 33 U/L (17-59); Alkaline Phosphatase 58 U/L (38-126); Potassium 5.5 mmol/L (3.5-5.1)
[2022-01-20] MEDS: BUMETANIDE 0.25 MG/ML 10 ML VIAL IV SCH ×2 (14:18→20:13)
[2022-01-20] MEDS: diphenhydrAMINE 25 MG CAP PO PRN ×2 (14:19→20:14)
[2022-01-20] MEDS: SODIUM CHLORIDE 0.9% 500 ML 500 ML IV SCH (16:26)
[2022-01-20] MEDS ORDERED: SODIUM POLYSTYRENE SULFONATE 15 GM/60 ML BOTTLE PO STA (16:34)
[2022-01-20] MEDS ORDERED: HALOPERIDOL LACTATE 5 MG/ML 1 ML VIAL IM PRN (16:36)
--- NOTE | 2022-01-20 16:39 | P.PN ---
Progress Note - Text Progress Note Date: 01/20/22 Chief Complaint: Hypoxic This is a 61-year-old patient, follows with Dr. Smalls Chronic stable medical conditions include diabetes, hypertension, left below- knee amputation. admitted to the hospital on 11/09/2021 with a right foot nonhealing ulcer. Had been a smoker up to recently. Wound on right heel, wound cultures were positive for Acinetobacter and MRSA. MRI was negative for osteomyelitis. Seen by pain services for chronic pain. Neuropathic pain. Admitted with acute COPD exacerbation, pneumonia, right heel wound. IV Unasyn daptomycin continued. Bronchodilators. Steroids. For neuropathic pain , Neurontin was increased. seen by pain services. Patient was discharged to rehab Was in hospital and not a part of December. Discharged on December 25. Wound on the right heel. Seen by vascular team Dr. Marie. For outpatient follow-up. Was discharged to rehab. She was discharged from rehab to home yesterday. Patient felt he was discharged prematurely. Was discharged without oxygen and no pain medications. He went to live with his daughter. They were not told how to use oxygen. Apparently fell down and bumped his head. No loss of consciousness. As the daughter brought the patient back to the ER. Was placed in trauma to because of his respiratory status. This morning patient feeling much better. Most to go home. Wants pain medications for his foot. January 07: Patient was seen by vascular. Patient to follow-up outpatient. Discussed with ID. Not for antibiotics at the present time. Wound care to continue. The daughter wants the patient to go to rehab. budget manager is involved. Patient eating well. Sitting up in a chair. Pain well controlled. January 08: Up in a chair. Comfortable. Oral intake fair. as per Vascular patient had wound care debridement by Dr. blue last week. Patient being scheduled for right healed surgical wound debridement tomorrow. Many boot to right foot. Relevant to head. Changed Beals 5 every 6 when necessary January 09: Patient is being refused by 2 rehab places. Up in a chair. Comfortable. Pain control. Debridement was canceled because patient had breakfast. January 10: Patient completed Increased pain. Beals increased to 7.5 every 6 when necessary continue with Neurontin. Plan for debridement tomorrow. 2 places from rehab have declined the patient. Daughter is out of town till tomorrow. Hemoglobin 6.7 this morning. 1 unit PRBC ordered. January 14: I resumed care of patient today. Patient had right heel debridement on January [address] Poole. Again there is some area of black ischemia. Offloading reinforced. Patient was agitated earlier today. Received Ativan. Didn't want to eat. Spoke to hospice case manager. Waiting for authorization. Elevated potassium. Lokelma added. January 15: Patient doing much better today. Communicating. Had his breakfast. IV Dilaudid discontinued. Pain consultation done. Discussed with hospice case manager. Pending authorization. Santyl wound dressing. With offloading. January 16: Patient is pending authorization. Oral intake variable. Seen by pain management team. Continue on current medication. January 17: Patient is somewhat agitated last night. Required Haldol. Had some breakfast this morning. Earlier the nurse called me that. Patient was tw itching. EKG ordered. Added Risperdal today. 1 mg at night and 0.25 mg the morning. Neurology consulted. EEG ordered. Note that patient's sodium Keppra. Potassium 5.7. Kayexalate 45 g ordered. DC Nessa[place]. January 18: Patient was started on Risperdal yesterday. Doing much better this morning. EEG negative for seizure activity. Patient has been declined at rehab. I spoke to Sofi from case management. To expedite discharge January 19: Sitting up in bed. Communicating. Did eat. Had a 20 second episode of change in vision. Seen by neurology Dr. Wolfe. [place] to be a amauroxis fugas. Plavix added. Pain well controlled. Vascular consulted because of known carotid stenosis. January 20: Short of breath today. IV Bumex ordered. We will get 2 doses. Switch back to by mouth Bumex tomorrow. Discussed with Dr. Poole from vascular. She'll follow-up in the CT angios results. Oral intake fair. Active Medications Hydrocodone Bitart/Acetaminophen (Hydrocodone/Apap 7.5-325mg 1 Each Tab) 1 each PO Q6HR PRN PRN Reason: Moderate Pain Last Admin: 01/20/22 16:28 Dose: 1 each Albuterol/Ipratropium (Ipratropium-Albuterol 3 Ml Neb) 3 ml INHALATION RT-QID LAURA Last Admin: 01/20/22 10:46 Dose: 3 ml Aspirin (Aspirin 81 Mg) 81 mg PO DAILY [facility] Last Admin: 01/20/22 10:22 Dose: 81 mg Atorvastatin Calcium (Atorvastatin 40 Mg Tab) 80 mg PO HS [facility] Last Admin: 01/19/22 21:53 Dose: 80 mg Budesonide (Budesonide 1 Mg/2 Ml Nebu) 1 mg INHALATION RT-BID [facility] Last Admin: 01/20/22 08:03 Dose: 1 mg Bumetanide (Bumetanide 0.25 Mg/Ml 10 Ml Vial) 0.5 mg IV Q12HR [facility] Last Admin: 01/20/22 14:18 Dose: 0.5 mg Carvedilol (Carvedilol 12.5 Mg Tab) 12.5 mg PO BID [facility] Last Admin: 01/20/22 10:22 Dose: 12.5 mg Clopidogrel Bisulfate (Clopidogrel 75 Mg Tab) 75 mg PO DAILY [facility] Last Admin: 01/20/22 10:22 Dose: 75 mg Collagenase (Collagenase 250 Unit/Gm Ointment 30 Gm Tube) 1 applic TOPICAL DAILY [facility]; Protocol Last Admin: 01/20/22 10:24 Dose: 1 applic Diphenhydramine HCl (Diphenhydramine 25 Mg Cap) 25 mg PO QID PRN PRN Reason: Allergic Reaction Last Admin: 01/20/22 14:19 Dose: 25 mg Enoxaparin Sodium (Enoxaparin 40 Mg/0.4 Ml Syringe) 40 mg SQ DAILY [facility] Last Admin: 01/20/22 10:21 Dose: 40 mg Gabapentin (Gabapentin 300 Mg Cap) 300 mg PO HS [facility] Last Admin: 01/19/22 20:52 Dose: 300 mg Haloperidol Lactate (Haloperidol Lactate 5 Mg/Ml 1 Ml Vial) 2.5 mg IM Q4HR PRN PRN Reason: Agitation or Acute Psychosis Last Admin: 01/20/22 14:19 Dose: 2.5 mg Hydralazine HCl (Hydralazine Hcl 50 Mg Tab) 100 mg PO TID [facility] Last Admin: 01/20/22 16:30 Dose: 100 mg Sodium Chloride (Saline 0.9%) 500 mls @ 10 mls/hr IV .Q24H [facility] Last Admin: 01/20/22 16:26 Dose: Not Given Insulin Aspart (Insulin Aspart (Novolog) 100 Unit/Ml Vial) 10 unit SQ AC-TID [facility] Last Admin: 01/20/22 13:12 Dose: 10 unit Insulin Detemir (Insulin Detemir (Levemir) 100 Unit/Ml Syr) 18 unit SQ [facility] Last Admin: 01/19/22 21:53 Dose: 18 unit Levetiracetam (Levetiracetam 500 Mg Tab) 1,000 mg PO BID [facility] Last Admin: 01/20/22 10:22 Dose: 1,000 mg Lidocaine HCl (Lidocaine 1% (10mg/Ml) For Iv Start) 0.1 ml INTRADERMA PER PROTOCOL PRN PRN Reason: IV Start Naloxone HCl (Naloxone 0.4 Mg/Ml 1 Ml Vial) 0.2 mg IV Q2M PRN PRN Reason: Opioid Reversal Ondansetron HCl (Ondansetron 4 Mg/2 Ml Vial) 4 mg IVP Q6HR PRN PRN Reason: Nausea And Vomiting Last Admin: 01/18/22 23:15 Dose: 4 mg Risperidone (Risperidone 1 Mg Tab) 1 mg PO [facility] Last Admin: 01/19/22 20:52 Dose: 1 mg Risperidone (Risperidone 0.25 Mg Tab) 0.25 mg PO DAILY [facility] Last Admin: 01/20/22 10:23 Dose: 0.25 mg Ropinirole HCl (Ropinirole Hcl 0.25 Mg Tab) 0.5 mg PO TID [facility] Last Admin: 01/20/22 16:30 Dose: 0.5 mg Tamsulosin HCl (Tamsulosin 0.4 Mg Cap.Er.24h) 0.4 mg PO DAILY [facility] Last Admin: 01/20/22 10:23 Dose: 0.4 mg Past medical history to include: Stroke, diabetes, hypertension, left below-knee amputation, right heel wound, PAD Social history: Discharged to home yesterday from of [place], smoked 2 packs a day for 45 years up October 2021. No alcohol. . 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 Conjunctiva normal. HEENT: External appearance of nose and ears normal, oral cavity grossly normal. NECK: JVD not raised; masses not palpable. HEART: First and second heart sounds are normal; no edema. LUNGS: Respiratory rate increased; decreased breath sounds, crackles ABDOMEN: Soft, nontender, liver spleen not palpable, no masses palpable. PSYCH: Answering questions appropriately MUSCULOSKELETAL:No Clubbing/cyanosis;muscles-grossly intact. EXTREMITIES: Right heel necrotic wound. Dressing right lower extremity. Dry skin. Left below-knee amputation INVESTIGATIONS, reviewed in the clinical context: CT angina neck: Occluded right internal Artery extending from the bifurcation into the visualized skeleton this portion, bilateral pleural effusion dilated pulmonary trunk January 20: Potassium 5.5 BUN 38 creatinine 1.48 January 18: Potassium 4.7 BUN 37 creatinine 1.41 January 17: White count 11 hemoglobin 8.6 potassium 5.7 BUN 32 creatinine 1.3 January 16: Potassium 5.1 BUN 34 creatinine 1.43 January 06: White count 7.7 hemoglobin 7.1 platelets 301 potassium 5.6. 44 creatinine 1.73 EKG tracing personally reviewed by me-normal sensory. Nonspecific ST-T wave changes. Chest x-ray film personally reviewed by me: Possibly chronic changes Recent admission: Carotid Doppler:Subtotal occlusion right ICA and severe stenosis left ICA December 20: Hemoglobin 7 December 19: Potassium 5.1 BUN 37 creatinine 1.81 2-D echocardiogram: EF 60 - 65% Doppler ultrasound December 10 right lower extremity: Negative for DVT Assessment and plan: -Acute hypoxic respiratory failure from COPD exacerbation: Better Patient is unable to use his oxygen at home. Circumstances unclear. Supplemental oxygen. -Chronic encephalomalacia involving the right frontal lobe. -Acute congestive heart failure exacerbation from diastolic dysfunction EF 60- 65% IV Bumex 0.5 mg every 12 for 2 doses. -Subtotal occlusion right ICA and severe stenosis left ICA Follow with Dr. Marie outpatient - Acute COPD exacerbation in a previous smoker: improving DuoNeb 4 times a day. Pulmicort nebulizer twice a day. -Right heel diabetic wound negative for osteomyelitis per recent MRI.: Previous Culture positive for Acinetobacter, MRSA No need for further antibiotics per ID.. Patient had his wound debrided by Dr. blue last week and the wound care center. Debridement done on January [address] Poole.Santyl wound care with offloading -chronic hypoxic respiratory failure from COPD On home oxygen -Acute on chronic Normocytic anemia/iron deficiency anemia Received 1 unit of PRBC -Chronic kidney disease stage III likely diabetic nephropathy and hypertensive nephrosclerosis Creatinine 1.68 on November 09 -Diabetes mellitus type 2, chronically on insulin: Controlled with hypoglycemia Levemir 18 units. 5 units with meals Humalog. Sliding scale. -Essential hypertension Coreg 12.5 mg twice a day hydralazine 100 mg three times a day -Diabetic peripheral neuropathy: Contact Neurontin 300 mg daily at bedtime -Restless leg syndrome: Requip 0.5 mg by mouth 3 times a day -Left below-knee amputation -PAD -Chronic pain. Patient seen by pain management team last admission. Beals 7.5 every 6 when necessary. Neurontin 300 mg daily at bedtime -Hyperkalemia: Worsening Repeat Kayexalate 45 g. -Episodes of twitching. No seizure activity -Occluded right internal Artery Extending from the Bifurcation into the [place]. -Full code IV Bumex 0.5 mg twice a day for 2 doses. Changed to oral Bumex tomorrow. Follow with vascular. Discussed with patient. Repeat labs tomorrow.
[2022-01-20 17:08] LABS: Glucose,Whole Blood 174 mg/dL (70-110)
[2022-01-20] MEDS: GABAPENTIN 300 MG CAP PO SCH (20:12)
[2022-01-20] MEDS: INSULIN DETEMIR (LEVEMIR) 100 UNIT/ML SYR SQ SCH (20:12)
[2022-01-20 20:13] LABS: Glucose,Whole Blood 241 mg/dL (70-110)
[2022-01-20] MEDS: risperiDONE 1 MG TAB PO SCH (20:13)
[2022-01-20] MEDS: ATORVASTATIN 40 MG TAB PO SCH (20:13)
[2022-01-20 21:24] LABS: Glucose,Whole Blood 193 mg/dL (70-110)
--- NOTE | 2022-01-21 01:16 | P.PN ---
Subjective Progress Note Date: 01/20/22 This is a telemedicine neurology follow performed today on 01/20/2022. Patient states he is feeling better. No further visual symptoms. His vision is fine in both eyes. Per nurse report, he was refusing CTA of head and neck. He was aggressive, he was given Haldol and he got better. I spoke to patient's significant other Betsy, whom he has lived in the past. Currently patient is living with his daughter. She states that for about 1-1/2-3 years, he has been having episodes in which his hands and feet move, and it lasts for couple minutes. She states that it looks like "petit mal seizures" like her son has been diagnosed with. Patient states that these episodes were occurring almost once every 2 weeks. At one point he was in [facility], where he was seen by neurologist, and was diagnosed with possible seizures, started on Keppra. She states that they were told that the seizures are due to "poison running in his blood from ischemic limb". She does not remember if he has seen any neurologist as an outpatient. Patient was started on Keppra in August or September 2021 when he stopped having those spells. She is also aware that patient has been diagnosed with "clogged arteries in his neck"for the last 1-1/2 to 3 years. Objective - Vital Signs Vital signs: Vital Signs Temp 98.5 F 01/20/22 19:20 Pulse 102 H 01/20/22 20:00 Resp 24 01/20/22 20:00 BP 177/75 01/20/22 19:20 Pulse Ox 97 01/20/22 19:20 FiO2 4 01/11/22 00:00 Intake & Output 01/20/22 01/20/22 01/21/22 06:59 18:59 06:59 Output Total 1 1200 1 Balance -1 -1200 -1 Output: Urine 1200 Stool 1 1 Other: Voiding Method Urinal Urinal # Voids 1 2 # Bowel Movements 1 - Exam Patient is alert and awake, no distress. Speech and language functions are normal. Patient's vision is normal in both eyes. - Labs CBC & Chem 7: 01/17/22 04:36 01/20/22 13:34 Labs: Abnormal Lab Results - Last 24 Hours (Table) 01/20/22 01/20/2222 Range/Units 07:01 11:50 13:34 Potassium 5.5 H (3.5-5.1) mmol/L Carbon Dioxide 31 H (22-30) mmol/L BUN 38 H (9-20) mg/dL Creatinine 1.48 H (0.66-1.25) mg/dL Glucose 124 H (74-99) mg/dL POC Glucose (mg/dL) 257 H 164 H (70-110) mg/dL Calcium 8.0 L (8.4-10.2) mg/dL Albumin 3.3 L (3.5-5.0) g/dL 01/20/22 01/20/22 01/20/22 Range/Units 17:06 20:12 21:22 Potassium (3.5-5.1) mmol/L Carbon Dioxide (22-30) mmol/L BUN (9-20) mg/dL Creatinine (0.66-1.25) mg/dL Glucose (74-99) mg/dL POC Glucose (mg/dL) 174 H 241 H 193 H (70-110) mg/dL Calcium (8.4-10.2) mg/dL Albumin (3.5-5.0) g/dL Assessment and Plan Assessment: * Altered mental status, likely due to delirium, perhaps related to toxic metabolic encephalopathy. Reasons multifactorial as below. * Transient visual disturbance right side of his vision (?Right eye), possible amaurosis fugax. Symptoms resolved in around 20 seconds. * Right ICA occlusion from bifurcation into the visualized cavernous portion, per CTA report. Left carotid system patent with less than 50% stenosis. 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 seizure disorder. * Diabetes * Hypertension * Peripheral arterial disease * Chronic renal disease * Anemia * Hypertension * Tobacco use * Diabetic foot ulcer * Status post left BKA * Chronic pain Plan: * CTA of head and neck revealed occluded internal carotid artery extending from the bifurcation into the visualized cavernous portion. Left carotid system is patent with less than 50% stenosis of the carotid bifurcation. Bilateral pleural effusions with dilated pulmonary trunk which could represent pulmonary hypertension. Mediastinal and right pulmonary hilum lymphadenopathy which could be secondary to congestive heart failure with underlying malignancy not entirely excluded. Would defer IM for this later finding. * Vascular surgery on board. Await final recommendations. * Continue aspirin 81 mg daily and Plavix 75 g daily per * EEG 01/18/2022 was abnormal due to background slowing of moderate degree. This is suggestive of generalized cerebral dysfunction as can be seen with toxic metabolic encephalopathy or related to diffuse structural brain abnormality. Clinical correlation is recommended. No epileptiform activity was seen. * Patient currently on Keppra 1000 mg every 12 hour, which will be continued. Spoke to patient's significant other, who states that patient used to have some tremor type movements of arms and legs, lasting for a couple minutes. These episodes resolve after he was started on Keppra. Patient's significant other was recommended to have patient follow up with neurologist as an outpatient. * Patient's mentation is much improved today. Avoid opiates, anticholinergics. * Lipid panel with cholesterol 244, LDL 169, HDL 33 and triglycerides 206. We will increase Lipitor to 80 mg daily. * Optimize control of diabetes, target A1c <7.0 (current A1c 8.9). Patient's B12 is 475. * Medical management as per IM and other specialties. * Neurologically, no other recommendations. Dr. Otto Vences will be resuming neurology service in the morning. Please call neurology if any their concerns.
[2022-01-21] MEDS: diphenhydrAMINE 25 MG CAP PO PRN ×3 (02:41→23:19)
[2022-01-21] MEDS: HYDROcodone/APAP 7.5-325MG 1 EACH TAB PO PRN ×4 (04:01→21:15)
[2022-01-21] MEDS ORDERED: cloNIDine HCL 0.1 MG TAB PO STA (05:39)
[2022-01-21 06:46] LABS: Glucose,Whole Blood 244 mg/dL (70-110)
[2022-01-21] MEDS: INSULIN ASPART (NovoLOG) 100 UNIT/ML VIAL SQ SCH ×3 (07:31→17:44)
[2022-01-21] MEDS: ENOXAPARIN 40 MG/0.4 ML SYRINGE SQ SCH (07:31)
[2022-01-21] MEDS: hydrALAZINE HCL 50 MG TAB PO SCH ×3 (07:32→21:04)
[2022-01-21] MEDS: ASPIRIN 81 MG PO SCH (07:33)
[2022-01-21] MEDS: BUMETANIDE 1 MG TAB PO SCH (07:33)
[2022-01-21] MEDS: levETIRAcetam 500 MG TAB PO SCH ×2 (07:33→21:05)
[2022-01-21] MEDS: risperiDONE 0.25 MG TAB PO SCH (07:33)
[2022-01-21] MEDS: TAMSULOSIN 0.4 MG CAP.ER.24H PO SCH (07:34)
[2022-01-21] MEDS: CLOPIDOGREL 75 MG TAB PO SCH (07:34)
[2022-01-21] MEDS: carvediloL 12.5 MG TAB PO SCH ×2 (07:34→21:04)
--- NOTE | 2022-01-21 07:37 | P.PN ---
Subjective Progress Note Date: 01/20/22 Principal diagnosis: Right diabetic foot wound Patient is a 61-year-old male who recently did have multiple admission to this facility and was treated for right heel diabetic foot infection with underlying osteomyelitis culture positive for Enterobacter and MRSA and the patient has completed his antibiotic therapy as of 01/01/2022, patient now admitted to the hospital for possible syncopal episode and lack of home oxygen. On today's evaluation that is 01/20/2022, the patient continues to be afebrile, the patient is breathing comfortably on nasal cannula oxygen, the patient apparently was yelling and has been given Ativan per the nursing staff no vomiting or diarrhea has been reported Objective - Vital Signs Vital signs: Vital Signs Temp 98.5 F 01/20/22 19:20 Pulse 102 H 01/20/22 19:20 Resp 24 01/20/22 19:20 BP 177/75 01/20/22 19:20 Pulse Ox 97 01/20/22 19:20 FiO2 4 01/11/22 00:00 Intake & Output 01/20/22 01/20/22 01/21/22 06:59 18:59 06:59 Output Total 1 1200 Balance -1 -1200 Output: Urine 1200 Stool 1 Other: Voiding Method Urinal # Voids 1 # Bowel Movements 1 - Exam GENERAL DESCRIPTION: Middle-age male lying in bed in no distress RESPIRATORY SYSTEM: Unlabored breathing , decreased breath sounds at bases HEART: S1 S2 regular rate and rhythm , ABDOMEN: Soft , no tenderness EXTREMITIES: Right heel is currently dressed no drainage on the dressing - Labs CBC & Chem 7: 01/17/22 04:36 01/20/22 13:34 Labs: Abnormal Lab Results - Last 24 Hours (Table) 01/20/22 01/20/22 01/20/22 Range/Units 07:01 11:50 13:34 Potassium 5.5 H (3.5-5.1) mmol/L Carbon Dioxide 31 H (22-30) mmol/L BUN 38 H (9-20) mg/dL Creatinine 1.48 H (0.66-1.25) mg/dL Glucose 124 H (74-99) mg/dL POC Glucose (mg/dL) 257 H 164 H (70-110) mg/dL Calcium 8.0 L (8.4-10.2) mg/dL Albumin 3.3 L (3.5-5.0) g/dL 01/20/22 01/20/22 01/20/22 Range/Units 17:06 20:12 21:22 Potassium (3.5-5.1) mmol/L Carbon Dioxide (22-30) mmol/L BUN (9-20) mg/dL Creatinine (0.66-1.25) mg/dL Glucose (74-99) mg/dL POC Glucose (mg/dL) 174 H 241 H 193 H (70-110) mg/dL Calcium (8.4-10.2) mg/dL Albumin (3.5-5.0) g/dL Assessment and Plan (1) Decubitus ulcer of foot Current Visit: No Status: Acute Code(s): L89.899 - PRESSURE ULCER OF OTHER SITE, UNSPECIFIED STAGE SNOMED Code(s): 5779760467 (2) Diabetic foot ulcer Current Visit: No Status: Acute Code(s): E11.621 - TYPE 2 DIABETES MELLITUS WITH FOOT ULCER; L97.509 - NON-PRESSURE CHRONIC ULCER OTH PRT UNSP FOOT W UNSP SEVERITY SNOMED Code(s): 098872170 Plan: 1patient with a chronic nonhealing wound to the right heel area and this patient with underlying osteomyelitis secondary to Acinetobacter and MRSA for the patient completed more than 6 weeks of antibiotic therapy was recently discontinued patient became to the hospital with a possible syncopal episode and lack of home oxygen, patient is Noted any fever white count is normal and no evidence of any significant cellulitis to the right heel wound area recommend local wound care. 2patient is status post debridement of the right heel wound no purulence and no cultures were done. 3patient will continue local wound care to the right leg wound with the Santyl for moist dressing daily and keep the area of pressure
[2022-01-21] MEDS: IPRATROPIUM-ALBUTEROL 3 ML NEB INHALATION SCH ×4 (08:09→19:14)
[2022-01-21] MEDS: BUDESONIDE 1 MG/2 ML NEBU INHALATION SCH ×2 (08:09→19:14)
[2022-01-21 08:43] LABS: African American GFR (CKD) 69 (>60 ml/min/1.73 sqM); Anion Gap 4 mmol/L; Blood Urea Nitrogen 36 mg/dL (9-20); Calcium 7.9 mg/dL (8.4-10.2); Carbon Dioxide 32 mmol/L (22-30); Chloride 105 mmol/L (98-107); Glucose 238 mg/dL (74-99); Non-African American GFR(CKD) 60 (>60 ml/min/1.73 sqM); Potassium 4.9 mmol/L (3.5-5.1); Sodium 141 mmol/L (137-145)
--- NOTE | 2022-01-21 10:40 | P.PN ---
Subjective Progress Note Date: 01/21/22 Principal diagnosis: Carotid stenosis Patient seen and examined as a follow-up regarding some visual disturbance. Vascular surgery was read consulted to see patient regarding his carotid stenosis. CT angiogram head and neck was completed reporting occluded internal carotid artery extending from the bifurcation into the visualized cavernous portion. Left carotid system patent with less than 50% stenosis at the carotid bifurcation. Patient is denying any visual changes today. He denies any focal deficits. Objective - Vital Signs Vital signs: Vital Signs Temp 98.5 F 01/21/22 08:00 Pulse 90 01/21/22 08:26 Resp 18 01/21/22 08:26 BP 176/74 01/21/22 08:00 Pulse Ox 94 L 01/21/22 08:10 FiO2 4 01/11/22 00:00 Intake & Output 01/20/22 01/21/22 01/21/22 18:59 06:59 18:59 Output Total 1200 751 Balance -1200 -751 Output: Urine 1200 750 Stool 1 Other: Voiding Method Urinal # Voids 1 # Bowel Movements 1 - Exam General appearance: The patient is alert, oriented, appears in no acute distress. HET: Head is normocephalic and atraumatic. Pupils are equal and reactive. Neck: Supple without lymphadenopathy. Trachea midline. No audible carotid bruit. Heart: S1 S2. Regular rate and rhythm. Lungs: Clear to auscultation bilaterally, diminshed in bases. Abdomen: Soft, nontender, nondistended. Extremities: Generalized rash, scaling skin all over body. Left [id number] amputation stump well-healed. Right foot with dressing clean dry and intact. Neurological: Alert and oriented. No focal deficits noted. - Labs CBC & Chem 7: 01/17/22 04:36 01/21/22 08:00 Labs: Abnormal Lab Results - Last 24 Hours (Table) 01/20/22 01/20/22 01/20/22 Range/Units 11:50 13:34 17:06 Potassium 5.5 H (3.5-5.1) mmol/L Carbon Dioxide 31 H (22-30) mmol/L BUN 38 H (9-20) mg/dL Creatinine 1.48 H (0.66-1.25) mg/dL Glucose 124 H (74-99) mg/dL POC Glucose (mg/dL) 164 H 174 H (70-110) mg/dL Calcium 8.0 L (8.4-10.2) mg/dL Albumin 3.3 L (3.5-5.0) g/dL 01/20/22 01/20/22 01/21/22 Range/Units 20:12 21:22 06:44 Potassium (3.5-5.1) mmol/L Carbon Dioxide (22-30) mmol/L BUN (9-20) mg/dL Creatinine (0.66-1.25) mg/dL Glucose (74-99) mg/dL POC Glucose (mg/dL) 241 H 193 H 244 H (70-110) mg/dL Calcium (8.4-10.2) mg/dL Albumin (3.5-5.0) g/dL 01/21/22 Range/Units 08:00 Potassium (3.5-5.1) mmol/L Carbon Dioxide 32 H (22-30) mmol/L BUN 36 H (9-20) mg/dL Creatinine 1.28 H (0.66-1.25) mg/dL Glucose 238 H (74-99) mg/dL POC Glucose (mg/dL) (70-110) mg/dL Calcium 7.9 L (8.4-10.2) mg/dL Albumin (3.5-5.0) g/dL Assessment and Plan Assessment: 1. Acute vision changes, now resolved 2. Known carotid stenosis, right ICA occlusion, left ICA stenosis less than 50% per CT angiogram 3. Right chronic diabetic heel ulcer status post debridement 4. Acute hypoxic respiratory failure, COPD exacerbation 5. Diabetes mellitus Plan: 1. Continue medical management with aspirin Plavix and Lipitor 2. Follow-up with vascular surgery as an outpatient 3. There is no indication for any vascular surgical intervention at this time. Will continue to use do surveillance of the left ICA with outpatient carotid ultrasound every 6 months Thank you for this consultation, patient is cleared for discharge from a vascular surgical standpoint The impression and plan of care has been dictated as directed. Dr. Montalvo I performed a history and examination of this patient, discussed the same with the dictator. I agree with the dictator's note ,documented as a scribe. Any additional findings or plans will be noted.
[2022-01-21] MEDS: COLLAGENASE 250 UNIT/GM OINTMENT 30 GM TUBE TOPICAL SCH (10:45)
[2022-01-21 11:27] LABS: Glucose,Whole Blood 232 mg/dL (70-110)
[2022-01-21] MEDS ORDERED: carvediloL 6.25 MG TAB PO STA (12:47)
--- NOTE | 2022-01-21 15:23 | XR ---
EXAMINATION TYPE: XR chest 1V portable DATE OF EXAM: 01/21/2022 COMPARISON: 01/17/2022 INDICATION: CHF follow-up TECHNIQUE: Single frontal view of the chest is obtained. FINDINGS: The heart size is normal. The pulmonary vasculature is normal. As has improved from comparison. Perihilar and lower lobe infiltrates are present. Correlate for pulmonary edema. Pneumonia should be considered. IMPRESSION: 1. Findings suggestive for lower lobe atypical pulmonary edema. Consider pneumonia within the differe ntial. There may be some improvement of the pulmonary vascular markings over the interval.
[2022-01-21] MEDS ORDERED: BUMETANIDE 0.25 MG/ML 4 ML VIAL IVP STA (16:37)
[2022-01-21 16:38] LABS: Glucose,Whole Blood 169 mg/dL (70-110)
--- NOTE | 2022-01-21 16:43 | P.PN ---
Progress Note - Text Progress Note Date: 01/21/22 Chief Complaint: Hypoxic This is a 61-year-old patient, follows with Dr. Smalls Chronic stable medical conditions include diabetes, hypertension, left below- knee amputation. admitted to the hospital on 11/09/2021 with a right foot nonhealing ulcer. Had been a smoker up to recently. Wound on right heel, wound cultures were positive for Acinetobacter and MRSA. MRI was negative for osteomyelitis. Seen by pain services for chronic pain. Neuropathic pain. Admitted with acute COPD exacerbation, pneumonia, right heel wound. IV Unasyn daptomycin continued. Bronchodilators. Steroids. For neuropathic pain , Neurontin was increased. seen by pain services. Patient was discharged to rehab Was in hospital and not a part of December. Discharged on December 25. Wound on the right heel. Seen by vascular team Dr. Marie. For outpatient follow-up. Was discharged to rehab. She was discharged from rehab to home yesterday. Patient felt he was discharged prematurely. Was discharged without oxygen and no pain medications. He went to live with his daughter. They were not told how to use oxygen. Apparently fell down and bumped his head. No loss of consciousness. As the daughter brought the patient back to the ER. Was placed in trauma to because of his respiratory status. This morning patient feeling much better. Most to go home. Wants pain medications for his foot. January 07: Patient was seen by vascular. Patient to follow-up outpatient. Discussed with ID. Not for antibiotics at the present time. Wound care to continue. The daughter wants the patient to go to rehab. flower shop manager is involved. Patient eating well. Sitting up in a chair. Pain well controlled. January 08: Up in a chair. Comfortable. Oral intake fair. as per Vascular patient had wound care debridement by Dr. blue last week. Patient being scheduled for right healed surgical wound debridement tomorrow. Many boot to right foot. Relevant to head. Changed Parks[place] 5 every 6 when necessary January 09: Patient is being refused by 2 rehab places. Up in a chair. Comfortable. Pain control. Debridement was canceled because patient had breakfast. January 10: Patient completed Increased pain. Parksley increased to 7.5 every 6 when necessary continue with Neurontin. Plan for debridement tomorrow. 2 places from rehab have declined the patient. Daughter is out of town till tomorrow. Hemoglobin 6.7 this morning. 1 unit PRBC ordered. January 14: I resumed care of patient today. Patient had right heel debridement on January [address] Poole. Again there is some area of black ischemia. Offloading reinforced. Patient was agitated earlier today. Received Ativan. Didn't want to eat. Spoke to case resolution specialist. Waiting for authorization. Elevated potassium. Lokelma added. January 15: Patient doing much better today. Communicating. Had his breakfast. IV Dilaudid discontinued. Pain consultation done. Discussed with case resolution specialist. Pending authorization. Santyl wound dressing. With offloading. January 16: Patient is pending authorization. Oral intake variable. Seen by pain management team. Continue on current medication. January 17: Patient is somewhat agitated last night. Required Haldol. Had some breakfast this morning. Earlier the nurse called me that. Patient was tw itching. EKG ordered. Added Risperdal today. 1 mg at night and 0.25 mg the morning. Neurology consulted. EEG ordered. Note that patient's sodium Keppra. Potassium 5.7. Kayexalate 45 g ordered. DC Sonal. January 18: Patient was started on Risperdal yesterday. Doing much better this morning. EEG negative for seizure activity. Patient has been declined at rehab. I spoke to Sofi from case management. To expedite discharge January 19: Sitting up in bed. Communicating. Did eat. Had a 20 second episode of change in vision. Seen by neurology Dr. Wolfe. Rodeo to be a amauroxis fugas. Plavix added. Pain well controlled. Vascular consulted because of known carotid stenosis. January 20: Short of breath today. IV Bumex ordered. We will get 2 doses. Switch back to by mouth Bumex tomorrow. Discussed with Dr. Poole from vascular. She'll follow-up in the CT angios results. Oral intake fair. January 21: DC 2 doses IV Bumex yesterday. Breathing better. Oral intake fair. Discussed with Dr. Montalvo from vascular. Complete occlusion of right ICA. Not for any surgical intervention. Eating anywhere from 50-75%. Decision for Appeal to rehab pending. Active Medications Hydrocodone Bitart/Acetaminophen (Hydrocodone/Apap 7.5-325mg 1 Each Tab) 1 each PO Q6HR PRN PRN Reason: Moderate Pain Last Admin: 01/21/22 14:56 Dose: 1 each Albuterol/Ipratropium (Ipratropium-Albuterol 3 Ml Neb) 3 ml INHALATION RT-QID [facility] Last Admin: 01/21/22 15:24 Dose: 3 ml Aspirin (Aspirin 81 Mg) 81 mg PO DAILY [facility] Last Admin: 01/21/22 07:33 Dose: 81 mg Atorvastatin Calcium (Atorvastatin 40 Mg Tab) 80 mg PO HS [facility] Last Admin: 01/20/22 20:13 Dose: 80 mg Budesonide (Budesonide 1 Mg/2 Ml Nebu) 1 mg INHALATION RT-BID [facility] Last Admin: 01/21/22 08:09 Dose: 1 mg Bumetanide (Bumetanide 1 Mg Tab) 2 mg PO DAILY [facility] Last Admin: 01/21/22 07:33 Dose: 2 mg Bumetanide (Bumetanide 0.25 Mg/Ml 4 Ml Vial) 1 mg IVP ONCE STA Stop: 01/21/22 16:38 Carvedilol (Carvedilol 12.5 Mg Tab) 12.5 mg PO BID [facility] Last Admin: 01/21/22 07:34 Dose: 12.5 mg Carvedilol (Carvedilol 6.25 Mg Tab) 6.25 mg PO BID-W/MEALS [facility] Clopidogrel Bisulfate (Clopidogrel 75 Mg Tab) 75 mg PO DAILY [facility] Last Admin: 01/21/22 07:34 Dose: 75 mg Collagenase (Collagenase 250 Unit/Gm Ointment 30 Gm Tube) 1 applic TOPICAL DAILY [facility]; Protocol Last Admin: 01/21/22 10:45 Dose: 1 applic Diphenhydramine HCl (Diphenhydramine 25 Mg Cap) 25 mg PO QID PRN PRN Reason: Allergic Reaction Last Admin: 01/21/22 10:44 Dose: 25 mg Enoxaparin Sodium (Enoxaparin 40 Mg/0.4 Ml Syringe) 40 mg SQ DAILY [facility] Last Admin: 01/21/22 07:31 Dose: 40 mg Gabapentin (Gabapentin 300 Mg Cap) 300 mg PO HS [facility] Last Admin: 01/20/22 20:12 Dose: 300 mg Haloperidol Lactate (Haloperidol Lactate 5 Mg/Ml 1 Ml Vial) 2.5 mg IM Q8H PRN PRN Reason: Agitation or Acute Psychosis Hydralazine HCl (Hydralazine Hcl 50 Mg Tab) 100 mg PO TID [facility] Last Admin: 01/21/22 15:21 Dose: 100 mg Sodium Chloride (Saline 0.9%) 500 mls @ 10 mls/hr IV .Q24H [facility] Last Admin: 01/20/22 16:26 Dose: Not Given Insulin Aspart (Insulin Aspart (Novolog) 100 Unit/Ml Vial) 10 unit SQ AC-TID [facility] Last Admin: 01/21/22 12:32 Dose: 10 unit Insulin Detemir (Insulin Detemir (Levemir) 100 Unit/Ml Syr) 18 unit SQ HS [facility] Last Admin: 01/20/22 20:12 Dose: 18 unit Levetiracetam (Levetiracetam 500 Mg Tab) 1,000 mg PO BID [facility] Last Admin: 01/21/22 07:33 Dose: 1,000 mg Lidocaine HCl (Lidocaine 1% (10mg/Ml) For Iv Start) 0.1 ml INTRADERMA PER PROTOCOL PRN PRN Reason: IV Start Naloxone HCl (Naloxone 0.4 Mg/Ml 1 Ml Vial) 0.2 mg IV Q2M PRN PRN Reason: Opioid Reversal Ondansetron HCl (Ondansetron 4 Mg/2 Ml Vial) 4 mg IVP Q6HR PRN PRN Reason: Nausea And Vomiting Last Admin: 01/18/22 23:15 Dose: 4 mg Risperidone (Risperidone 1 Mg Tab) 1 mg PO [facility] Last Admin: 01/20/22 20:13 Dose: 1 mg Risperidone (Risperidone 0.25 Mg Tab) 0.25 mg PO DAILY [facility] Last Admin: 01/21/22 07:33 Dose: 0.25 mg Ropinirole HCl (Ropinirole Hcl 0.25 Mg Tab) 0.5 mg PO TID [facility] Last Admin: 01/21/22 15:21 Dose: 0.5 mg Tamsulosin HCl (Tamsulosin 0.4 Mg Cap.Er.24h) 0.4 mg PO DAILY [facility] Last Admin: 01/21/22 07:34 Dose: 0.4 mg Past medical history to include: Stroke, diabetes, hypertension, left below-knee amputation, right heel wound, PAD Social history: Discharged to home yesterday from of [place], smoked 2 packs a day for 45 years up October 2021. No alcohol. . 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 Conjunctiva normal. HEENT: External appearance of nose and ears normal, oral cavity grossly normal. NECK: JVD not raised; masses not palpable. HEART: First and second heart sounds are normal; no edema. LUNGS: Respiratory rate increased; decreased breath sounds, crackles ABDOMEN: Soft, nontender, liver spleen not palpable, no masses palpable. PSYCH: Answering questions appropriately MUSCULOSKELETAL:No Clubbing/cyanosis;muscles-grossly intact. EXTREMITIES: Right heel necrotic wound. Dressing right lower extremity. Dry skin. Left below-knee amputation INVESTIGATIONS, reviewed in the clinical context: January 21: Potassium 4.9. [address] angiogram to neck: Occluded right internal carotid Artery extending from the bifurcation into the visualized skeleton this portion, bilateral pleural effusion dilated pulmonary trunk January 20: Potassium 5.5 BUN 38 creatinine 1.48 January 18: Potassium 4.7 BUN 37 creatinine 1.41 January 17: White count 11 hemoglobin 8.6 potassium 5.7 BUN 32 creatinine 1.3 January 16: Potassium 5.1 BUN 34 creatinine 1.43 January 06: White count 7.7 hemoglobin 7.1 platelets 301 potassium 5.6. 44 creatinine 1.73 EKG tracing personally reviewed by me-normal sensory. Nonspecific ST-T wave changes. Chest x-ray film personally reviewed by me: Possibly chronic changes Recent admission: Carotid Doppler:Subtotal occlusion right ICA and severe stenosis left ICA December 20: Hemoglobin 7 December 19: Potassium 5.1 BUN 37 creatinine 1.81 2-D echocardiogram: EF 60 - 65% Doppler ultrasound December 10 right lower extremity: Negative for DVT Assessment and plan: -Acute hypoxic respiratory failure from COPD exacerbation: Better Patient is unable to use his oxygen at home. Circumstances unclear. Supplemental oxygen. -Chronic encephalomalacia involving the right frontal lobe. -Acute congestive heart failure exacerbation from diastolic dysfunction EF 60- 65% IV Bumex 1 mg 1 today. Continue Bumex 2 mg daily. -Per angiogram: Occluded right internal carotid artery extending from the bifurcation into the visualized skeletal portion. Seen by Dr. Montalvo. Not for any intervention. - Acute COPD exacerbation in a previous smoker: Better DuoNeb 4 times a day. Pulmicort nebulizer twice a day. -Right heel diabetic wound negative for osteomyelitis per recent MRI.: Previous Culture positive for Acinetobacter, MRSA No need for further antibiotics per ID.. Patient had his wound debrided by Dr. blue last week and the wound care center. Debridement done on January [address] Poole.Santyl wound care with offloading -chronic hypoxic respiratory failure from COPD On home oxygen -Acute on chronic Normocytic anemia/iron deficiency anemia Received 1 unit of PRBC -Chronic kidney disease stage III likely diabetic nephropathy and hypertensive nephrosclerosis Creatinine 1.68 on November 09 -Diabetes mellitus type 2, chronically on insulin: Controlled with hypoglycemia Levemir 22 units. 10 units with meals Humalog. Sliding scale. -Essential hypertension Coreg 12.5 mg twice a day hydralazine 100 mg three times a day -Diabetic peripheral neuropathy: Contact Neurontin 300 mg daily at bedtime -Restless leg syndrome: Requip 0.5 mg by mouth 3 times a day -Left below-knee amputation -PAD -Chronic pain. Patient seen by pain management team last admission. Parksley 7.5 every 6 when necessary. Neurontin 300 mg daily at bedtime -Hyperkalemia: Worsening Repeat Kayexalate 45 g. -Episodes of twitching. 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 -no code IV Bumex 1 mg daily. Continue oral Bumex . Complete occlusion of right ICA. Discussed with Dr. Montalvo. No intervention. Repeat labs. Pending placement. Total time spent about 40 minutes with over 25% discussion.
[2022-01-21] MEDS: carvediloL 6.25 MG TAB PO SCH (17:44)
[2022-01-21 20:51] LABS: Glucose,Whole Blood 238 mg/dL (70-110)
[2022-01-21] MEDS: GABAPENTIN 300 MG CAP PO SCH (21:04)
[2022-01-21] MEDS: INSULIN DETEMIR (LEVEMIR) 100 UNIT/ML SYR SQ SCH (21:04)
[2022-01-21] MEDS: ATORVASTATIN 40 MG TAB PO SCH (21:04)
[2022-01-21] MEDS: risperiDONE 1 MG TAB PO SCH (21:05)
[2022-01-21] MEDS: SODIUM CHLORIDE 0.9% 500 ML 500 ML IV SCH (23:22)
[2022-01-22] MEDS: IPRATROPIUM-ALBUTEROL 3 ML NEB INHALATION SCH ×4 (07:25→19:53)
[2022-01-22] MEDS: BUDESONIDE 1 MG/2 ML NEBU INHALATION SCH ×2 (07:25→19:53)
[2022-01-22 07:30] LABS: Glucose,Whole Blood 184 mg/dL (70-110)
[2022-01-22] MEDS: HYDROcodone/APAP 7.5-325MG 1 EACH TAB PO PRN ×3 (07:33→17:42)
[2022-01-22] MEDS: INSULIN ASPART (NovoLOG) 100 UNIT/ML VIAL SQ SCH ×3 (07:46→17:45)
[2022-01-22] MEDS: ENOXAPARIN 40 MG/0.4 ML SYRINGE SQ SCH (07:46)
[2022-01-22] MEDS: ASPIRIN 81 MG PO SCH (07:47)
[2022-01-22] MEDS: hydrALAZINE HCL 50 MG TAB PO SCH ×3 (07:47→22:36)
[2022-01-22] MEDS: carvediloL 12.5 MG TAB PO SCH ×3 (07:48→22:38)
[2022-01-22] MEDS: carvediloL 6.25 MG TAB PO SCH ×2 (07:48→17:49)
[2022-01-22] MEDS: CLOPIDOGREL 75 MG TAB PO SCH (07:48)
[2022-01-22] MEDS: TAMSULOSIN 0.4 MG CAP.ER.24H PO SCH (07:48)
[2022-01-22] MEDS: BUMETANIDE 1 MG TAB PO SCH (07:49)
[2022-01-22] MEDS: levETIRAcetam 500 MG TAB PO SCH ×2 (07:49→22:38)
[2022-01-22] MEDS: risperiDONE 0.25 MG TAB PO SCH (07:50)
--- NOTE | 2022-01-22 08:13 | P.PN ---
Subjective Progress Note Date: 01/21/22 Principal diagnosis: Right diabetic foot wound Patient is a 61-year-old male who recently did have multiple admission to this facility and was treated for right heel diabetic foot infection with underlying osteomyelitis culture positive for Enterobacter and MRSA and the patient has completed his antibiotic therapy as of 01/01/2022, patient now admitted to the hospital for possible syncopal episode and lack of home oxygen. On today's evaluation that is 01/21/2022, the patient remains to be afebrile, the patient is breathing comfortably on nasal cannula oxygen, the patient denies any chest pain shortness of breath or cough no abdominal pain no diarrhea Objective - Vital Signs Vital signs: Vital Signs Temp 98.5 F 01/21/22 08:00 Pulse 90 01/21/22 08:26 Resp 18 01/21/22 08:26 BP 176/74 01/21/22 08:00 Pulse Ox 94 L 01/21/22 08:10 FiO2 4 01/11/22 00:00 Intake & Output 01/20/22 01/21/22 01/21/22 18:59 06:59 18:59 Output Total 1200 751 Balance -1200 -751 Output: Urine 1200 750 Stool 1 Other: Voiding Method Urinal # Voids 1 # Bowel Movements 1 - Exam GENERAL DESCRIPTION: Middle-age male lying in bed in no distress RESPIRATORY SYSTEM: Unlabored breathing , decreased breath sounds at bases HEART: S1 S2 regular rate and rhythm , ABDOMEN: Soft , no tenderness EXTREMITIES: Right heel is currently dressed no drainage on the dressing - Labs CBC & Chem 7: 01/17/22 04:36 01/21/22 08:00 Labs: Abnormal Lab Results - Last 24 Hours (Table) 01/20/22 01/20/22 01/20/22 Range/Units 11:50 13:34 17:06 Potassium 5.5 H (3.5-5.1) mmol/L Carbon Dioxide 31 H (22-30) mmol/L BUN 38 H (9-20) mg/dL Creatinine 1.48 H (0.66-1.25) mg/dL Glucose 124 H (74-99) mg/dL POC Glucose (mg/dL) 164 H 174 H (70-110) mg/dL Calcium 8.0 L (8.4-10.2) mg/dL Albumin 3.3 L (3.5-5.0) g/dL 01/20/22 01/20/22 01/21/22 Range/Units 20:12 21:22 06:44 Potassium (3.5-5.1) mmol/L Carbon Dioxide (22-30) mmol/L BUN (9-20) mg/dL Creatinine (0.66-1.25) mg/dL Glucose (74-99) mg/dL POC Glucose (mg/dL) 241 H 193 H 244 H (70-110) mg/dL Calcium (8.4-10.2) mg/dL Albumin (3.5-5.0) g/dL 01/21/22 Range/Units 08:00 Potassium (3.5-5.1) mmol/L Carbon Dioxide 32 H (22-30) mmol/L BUN 36 H (9-20) mg/dL Creatinine 1.28 H (0.66-1.25) mg/dL Glucose 238 H (74-99) mg/dL POC Glucose (mg/dL) (70-110) mg/dL Calcium 7.9 L (8.4-10.2) mg/dL Albumin (3.5-5.0) g/dL Assessment and Plan (1) Decubitus ulcer of foot Current Visit: No Status: Acute Code(s): L89.899 - PRESSURE ULCER OF OTHER SITE, UNSPECIFIED STAGE SNOMED Code(s): 3250213664 (2) Diabetic foot ulcer Current Visit: No Status: Acute Code(s): E11.621 - TYPE 2 DIABETES MELLITUS WITH FOOT ULCER; L97.509 - NON-PRESSURE CHRONIC ULCER OTH PRT UNSP FOOT W UNSP SEVERITY SNOMED Code(s): 345186739 Plan: 1patient with a chronic nonhealing wound to the right heel area and this patient with underlying osteomyelitis secondary to Acinetobacter and MRSA for the patient completed more than 6 weeks of antibiotic therapy was recently discontinued patient became to the hospital with a possible syncopal episode and lack of home oxygen, patient is Noted any fever white count is normal and no evidence of any significant cellulitis to the right heel wound area recommend local wound care. 2patient is status post debridement of the right heel wound no purulence and no cultures were done. 3patient wound care to the right leg with the Santyl followed by moist dressing daily and keep the area of pressure and monitor closely off antibiotics Time with Patient: Less than 30
[2022-01-22 09:03] LABS: African American GFR (CKD) 60 (>60 ml/min/1.73 sqM); Anion Gap 7 mmol/L; Blood Urea Nitrogen 38 mg/dL (9-20); Calcium 8.3 mg/dL (8.4-10.2); Carbon Dioxide 31 mmol/L (22-30); Chloride 104 mmol/L (98-107); Glucose 147 mg/dL (74-99); Non-African American GFR(CKD) 52 (>60 ml/min/1.73 sqM); Potassium 5.1 mmol/L (3.5-5.1); Sodium 142 mmol/L (137-145)
--- NOTE | 2022-01-22 11:01 | P.PN ---
Subjective Progress Note Date: 01/22/22 Principal diagnosis: Carotid stenosis Patient was seen and examined has a follow-up. He is without any complaints overnight. He denies any new focal deficits. Awaiting authorization for subacute rehab. Objective - Vital Signs Vital signs: Vital Signs Temp 98.5 F 01/22/22 08:00 Pulse 98 01/22/22 08:00 Resp 17 01/22/22 08:00 BP 186/87 01/22/22 08:00 Pulse Ox 98 01/22/22 08:00 FiO2 4 01/11/22 00:00 Intake & Output 01/21/22 01/22/22 01/22/22 18:59 06:59 18:59 Output Total 1451 400 350 Balance -1451 -400 -350 Weight 94.347 kg Output: Urine 1450 400 350 Stool 1 Other: Voiding Method Urinal # Voids 2 - Exam General appearance: The patient is alert, oriented, appears in no acute distress. HET: Head is normocephalic and atraumatic. Pupils are equal and reactive. Neck: Supple without lymphadenopathy. Trachea midline. No audible carotid bruit. Extremities: Left [id number] amputation stump well-healed. Right foot with dressing clean dry and intact. Neurological: Alert and oriented. No focal deficits noted. - Labs CBC & Chem 7: 01/17/22 04:36 01/22/22 08:23 Labs: Abnormal Lab Results - Last 24 Hours (Table) 01/21/22 01/21/22 01/21/22 Range/Units 11:25 16:37 20:50 Carbon Dioxide (22-30) mmol/L BUN (9-20) mg/dL Creatinine (0.66-1.25) mg/dL Glucose (74-99) mg/dL POC Glucose (mg/dL) 232 H 169 H 238 H (70-110) mg/dL Calcium (8.4-10.2) mg/dL 01/22/22 01/22/22 Range/Units 07:20 08:23 Carbon Dioxide 31 H (22-30) mmol/L BUN 38 H (9-20) mg/dL Creatinine 1.45 H (0.66-1.25) mg/dL Glucose 147 H (74-99) mg/dL POC Glucose (mg/dL) 184 H (70-110) mg/dL Calcium 8.3 L (8.4-10.2) mg/dL Assessment and Plan Assessment: 1. Acute vision changes, now resolved 2. Known carotid stenosis, right ICA occlusion, left ICA stenosis less than 50% per CT angiogram 3. Right chronic diabetic heel ulcer status post debridement 4. Acute hypoxic respiratory failure, COPD exacerbation 5. Diabetes mellitus Plan: 1. Continue medical management with aspirin Plavix and Lipitor 2. Follow-up with vascular surgery as an outpatient 3. There is no indication for any vascular surgical intervention at this time. Will continue to use do surveillance of the left ICA with outpatient carotid ultrasound every 6 months Thank you for this consultation, patient is cleared for discharge from a vascular surgical standpoint. We will sign off at this time. The impression and plan of care has been dictated as directed. Dr. Montalvo I performed a history and examination of this patient, discussed the same with the dictator. I agree with the dictator's note ,documented as a scribe. Any additional findings or plans will be noted.
[2022-01-22 11:35] LABS: Glucose,Whole Blood 152 mg/dL (70-110)
[2022-01-22] MEDS: COLLAGENASE 250 UNIT/GM OINTMENT 30 GM TUBE TOPICAL SCH (12:38)
--- NOTE | 2022-01-22 15:26 | P.PN ---
Progress Note - Text Progress Note Date: 01/22/22 Chief Complaint: Hypoxic This is a 61-year-old patient, follows with Dr. Smalls Chronic stable medical conditions include diabetes, hypertension, left below- knee amputation. admitted to the hospital on 11/09/2021 with a right foot nonhealing ulcer. Had been a smoker up to recently. Wound on right heel, wound cultures were positive for Acinetobacter and MRSA. MRI was negative for osteomyelitis. Seen by pain services for chronic pain. Neuropathic pain. Admitted with acute COPD exacerbation, pneumonia, right heel wound. IV Unasyn daptomycin continued. Bronchodilators. Steroids. For neuropathic pain , Neurontin was increased. seen by pain services. Patient was discharged to rehab Was in hospital and not a part of December. Discharged on December 25. Wound on the right heel. Seen by vascular team Dr. Marie. For outpatient follow-up. Was discharged to rehab. She was discharged from rehab to home yesterday. Patient felt he was discharged prematurely. Was discharged without oxygen and no pain medications. He went to live with his daughter. They were not told how to use oxygen. Apparently fell down and bumped his head. No loss of consciousness. As the daughter brought the patient back to the ER. Was placed in trauma to because of his respiratory status. This morning patient feeling much better. Most to go home. Wants pain medications for his foot. January 07: Patient was seen by vascular. Patient to follow-up outpatient. Discussed with ID. Not for antibiotics at the present time. Wound care to continue. The daughter wants the patient to go to rehab. global product manager is involved. Patient eating well. Sitting up in a chair. Pain well controlled. January 08: Up in a chair. Comfortable. Oral intake fair. as per Vascular patient had wound care debridement by Dr. blue last week. Patient being scheduled for right healed surgical wound debridement tomorrow. Many boot to right foot. Relevant to head. Changed Vian 5 every 6 when necessary January 09: Patient is being refused by 2 rehab places. Up in a chair. Comfortable. Pain control. Debridement was canceled because patient had breakfast. January 10: Patient completed Increased pain. Vian increased to 7.5 every 6 when necessary continue with Neurontin. Plan for debridement tomorrow. 2 places from rehab have declined the patient. Daughter is out of town till tomorrow. Hemoglobin 6.7 this morning. 1 unit PRBC ordered. January 14: I resumed care of patient today. Patient had right heel debridement on January [address] Poole. Again there is some area of black ischemia. Offloading reinforced. Patient was agitated earlier today. Received Ativan. Didn't want to eat. Spoke to case management social worker. Waiting for authorization. Elevated potassium. Lokelma added. January 15: Patient doing much better today. Communicating. Had his breakfast. IV Dilaudid discontinued. Pain consultation done. Discussed with case management social worker. Pending authorization. Santyl wound dressing. With offloading. January 16: Patient is pending authorization. Oral intake variable. Seen by pain management team. Continue on current medication. January 17: Patient is somewhat agitated last night. Required Haldol. Had some breakfast this morning. Earlier the nurse called me that. Patient was tw itching. EKG ordered. Added Risperdal today. 1 mg at night and 0.25 mg the morning. Neurology consulted. EEG ordered. Note that patient's sodium Keppra. Potassium 5.7. Kayexalate 45 g ordered. DC Sonal. January 18: Patient was started on Risperdal yesterday. Doing much better this morning. EEG negative for seizure activity. Patient has been declined at rehab. I spoke to Sofi from case management. To expedite discharge January 19: Sitting up in bed. Communicating. Did eat. Had a 20 second episode of change in vision. Seen by neurology Dr. Wolfe. [place] to be a amauroxis fugas. Plavix added. Pain well controlled. Vascular consulted because of known carotid stenosis. January 20: Short of breath today. IV Bumex ordered. We will get 2 doses. Switch back to by mouth Bumex tomorrow. Discussed with Dr. Poole from vascular. She'll follow-up in the CT angios results. Oral intake fair. January 21: DC 2 doses IV Bumex yesterday. Breathing better. Oral intake fair. Discussed with Dr. Montalvo from vascular. Complete occlusion of right ICA. Not for any surgical intervention. Eating anywhere from 50-75%. Decision for Appeal to rehab pending. January 22: Sitting up in a chair. Breathing better. Nasal cannula 2 L. Oral intake fair. Had a lengthy talk with the case management social worker Sharonda and the patient. They're looking at Medicaid insurance. Other avenues of discharge being looked into. Active Medications Hydrocodone Bitart/Acetaminophen (Hydrocodone/Apap 7.5-325mg 1 Each Tab) 1 each PO Q6HR PRN PRN Reason: Moderate Pain Last Admin: 01/22/22 12:38 Dose: 1 each Albuterol/Ipratropium (Ipratropium-Albuterol 3 Ml Neb) 3 ml INHALATION RT-QID [facility] Last Admin: 01/22/22 11:33 Dose: Not Given Aspirin (Aspirin 81 Mg) 81 mg PO DAILY [facility] Last Admin: 01/22/22 07:47 Dose: 81 mg Atorvastatin Calcium (Atorvastatin 40 Mg Tab) 80 mg PO HS [facility] Last Admin: 01/21/22 21:04 Dose: 80 mg Budesonide (Budesonide 1 Mg/2 Ml Nebu) 1 mg INHALATION RT-BID [facility] Last Admin: 01/22/22 07:25 Dose: 1 mg Bumetanide (Bumetanide 1 Mg Tab) 2 mg PO DAILY [facility] Last Admin: 01/22/22 07:49 Dose: 2 mg Carvedilol (Carvedilol 12.5 Mg Tab) 12.5 mg PO BID [facility] Last Admin: 01/22/22 07:48 Dose: 12.5 mg Carvedilol (Carvedilol 6.25 Mg Tab) 6.25 mg PO BID-W/MEALS [facility] Last Admin: 01/22/22 07:48 Dose: 6.25 mg Clopidogrel Bisulfate (Clopidogrel 75 Mg Tab) 75 mg PO DAILY [facility] Last Admin: 01/22/22 07:48 Dose: 75 mg Collagenase (Collagenase 250 Unit/Gm Ointment 30 Gm Tube) 1 applic TOPICAL DAILY [facility]; Protocol Last Admin: 01/22/22 12:38 Dose: 1 applic Diphenhydramine HCl (Diphenhydramine 25 Mg Cap) 25 mg PO QID PRN PRN Reason: Allergic Reaction Last Admin: 01/21/22 23:19 Dose: 25 mg Enoxaparin Sodium (Enoxaparin 40 Mg/0.4 Ml Syringe) 40 mg SQ DAILY [facility] Last Admin: 01/22/22 07:46 Dose: 40 mg Gabapentin (Gabapentin 300 Mg Cap) 300 mg PO HS [facility] Last Admin: 01/21/22 21:04 Dose: 300 mg Haloperidol Lactate (Haloperidol Lactate 5 Mg/Ml 1 Ml Vial) 2.5 mg IM Q8H PRN PRN Reason: Agitation or Acute Psychosis Hydralazine HCl (Hydralazine Hcl 50 Mg Tab) 100 mg PO TID [facility] Last Admin: 01/22/22 07:47 Dose: 100 mg Sodium Chloride (Saline 0.9%) 500 mls @ 10 mls/hr IV .Q24H [facility] Last Admin: 01/21/22 23:22 Dose: Not Given Insulin Aspart (Insulin Aspart (Novolog) 100 Unit/Ml Vial) 10 unit SQ AC-TID [facility] Last Admin: 01/22/22 11:52 Dose: 10 unit Insulin Detemir (Insulin Detemir (Levemir) 100 Unit/Ml Syr) 22 unit SQ [facility] Last Admin: 01/21/22 21:04 Dose: 22 unit Levetiracetam (Levetiracetam 500 Mg Tab) 1,000 mg PO BID [facility] Last Admin: 01/22/22 07:49 Dose: 1,000 mg Lidocaine HCl (Lidocaine 1% (10mg/Ml) For Iv Start) 0.1 ml INTRADERMA PER PROTOCOL PRN PRN Reason: IV Start Naloxone HCl (Naloxone 0.4 Mg/Ml 1 Ml Vial) 0.2 mg IV Q2M PRN PRN Reason: Opioid Reversal Ondansetron HCl (Ondansetron 4 Mg/2 Ml Vial) 4 mg IVP Q6HR PRN PRN Reason: Nausea And Vomiting Last Admin: 01/18/22 23:15 Dose: 4 mg Risperidone (Risperidone 1 Mg Tab) 1 mg PO [facility] Last Admin: 01/21/22 21:05 Dose: 1 mg Risperidone (Risperidone 0.25 Mg Tab) 0.25 mg PO DAILY [facility] Last Admin: 01/22/22 07:50 Dose: 0.25 mg Ropinirole HCl (Ropinirole Hcl 0.25 Mg Tab) 0.5 mg PO TID [facility] Last Admin: 01/22/22 07:47 Dose: 0.5 mg Tamsulosin HCl (Tamsulosin 0.4 Mg Cap.Er.24h) 0.4 mg PO DAILY [facility] Last Admin: 01/22/22 07:48 Dose: 0.4 mg Past medical history to include: Stroke, diabetes, hypertension, left below-knee amputation, right heel wound, PAD Social history: Discharged to home yesterday from of [place], smoked 2 packs a day for 45 years up October 2021. No alcohol. . 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 Conjunctiva normal. HEENT: External appearance of nose and ears normal, oral cavity grossly normal. NECK: JVD not raised; masses not palpable. HEART: First and second heart sounds are normal; no edema. LUNGS: Respiratory rate normal; decreased breath sounds, ABDOMEN: Soft, nontender, liver spleen not palpable, no masses palpable. PSYCH: Answering questions appropriately MUSCULOSKELETAL:No Clubbing/cyanosis;muscles-grossly intact. EXTREMITIES: Right heel necrotic wound. Dressing right lower extremity. Dry skin. Left below-knee amputation INVESTIGATIONS, reviewed in the clinical context: January 22: Potassium 5.1 BUN 38 creatinine 1.45 January 21: Potassium 4.9. [address] angiogram to neck: Occluded right internal carotid Artery extending from the bifurcation into the visualized skeleton this portion, bilateral pleural effusion dilated pulmonary trunk January 20: Potassium 5.5 BUN 38 creatinine 1.48 January 18: Potassium 4.7 BUN 37 creatinine 1.41 January 17: White count 11 hemoglobin 8.6 potassium 5.7 BUN 32 creatinine 1.3 January 16: Potassium 5.1 BUN 34 creatinine 1.43 January 06: White count 7.7 hemoglobin 7.1 platelets 301 potassium 5.6. 44 creatinine 1.73 EKG tracing personally reviewed by me-normal sensory. Nonspecific ST-T wave changes. Chest x-ray film personally reviewed by me: Possibly chronic changes Recent admission: Carotid Doppler:Subtotal occlusion right ICA and severe stenosis left ICA December 20: Hemoglobin 7 December 19: Potassium 5.1 BUN 37 creatinine 1.81 2-D echocardiogram: EF 60 - 65% Doppler ultrasound December 10 right lower extremity: Negative for DVT Assessment and plan: -Acute hypoxic respiratory failure from COPD exacerbation: Better Patient is unable to use his oxygen at home. Circumstances unclear. Supplemental oxygen. -Chronic encephalomalacia involving the right frontal lobe. -Acute congestive heart failure exacerbation from diastolic dysfunction EF 60- 65%: Better Continue Bumex 2 mg daily. -Per angiogram: Occluded right internal carotid artery extending from the bifurcation into the visualized skeletal portion. Seen by Dr. Montalvo. Not for any intervention. - Acute COPD exacerbation in a previous smoker: Better DuoNeb 4 times a day. Pulmicort nebulizer twice a day. -Right heel diabetic wound negative for osteomyelitis per recent MRI.: Previous Culture positive for Acinetobacter, MRSA No need for further antibiotics per ID.. Patient had his wound debrided by Dr. blue last week and the wound care center. [facility] done on January [address] [facility] with [facility]loading -chronic hypoxic respiratory failure from COPD On home oxygen -Acute on chronic Normocytic anemia/iron deficiency anemia Received 1 unit of PRBC -Chronic kidney disease stage III likely diabetic nephropathy and hypertensive nephrosclerosis Creatinine 1.68 on November 09 -Diabetes mellitus type 2, chronically on insulin: Controlled with hypoglycemia Levemir 22 units. 10 units with meals Humalog. Sliding scale. -Essential hypertension Coreg 18.75 mg twice a day hydralazine 100 mg three times a day -Diabetic peripheral neuropathy: Contact Neurontin 300 mg daily at bedtime -Restless leg syndrome: Requip 0.5 mg by mouth 3 times a day -Left below-knee amputation -PAD -Chronic pain. Patient seen by pain management team last admission. Vian 7.5 every 6 when necessary. Neurontin 300 mg daily at bedtime -Hyperkalemia: Worsening Repeat Kayexalate 45 g. -Episodes of twitching. 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 -no code . Continue oral Bumex . Repeat labs. Pending placement. Other medications to continue.
[2022-01-22] MEDS: SODIUM CHLORIDE 0.9% 500 ML 500 ML IV SCH (16:00)
[2022-01-22 16:36] LABS: Glucose,Whole Blood 144 mg/dL (70-110)
[2022-01-22] MEDS: ATORVASTATIN 40 MG TAB PO SCH (22:36)
[2022-01-22] MEDS: GABAPENTIN 300 MG CAP PO SCH (22:36)
[2022-01-22] MEDS: INSULIN DETEMIR (LEVEMIR) 100 UNIT/ML SYR SQ SCH (22:38)
[2022-01-22] MEDS: risperiDONE 1 MG TAB PO SCH (22:38)
[2022-01-22 22:44] LABS: Glucose,Whole Blood 207 mg/dL (70-110)
--- NOTE | 2022-01-23 07:11 | P.PN ---
Subjective Progress Note Date: 01/22/22 Principal diagnosis: Right diabetic foot wound Patient is a 61-year-old male who recently did have multiple admission to this facility and was treated for right heel diabetic foot infection with underlying osteomyelitis culture positive for Enterobacter and MRSA and the patient has completed his antibiotic therapy as of 01/01/2022, patient now admitted to the hospital for possible syncopal episode and lack of home oxygen. On today's evaluation that is 01/22/2022, the patient denies any fever or chills, the patient is breathing comfortably on nasal cannula oxygen, the patient denies any chest pain, no significant cough or sputum production no abdominal pain no diarrhea Objective - Vital Signs Vital signs: Vital Signs Temp 98.5 F 01/22/22 08:00 Pulse 98 01/22/22 08:00 Resp 17 01/22/22 08:00 BP 186/87 01/22/22 08:00 Pulse Ox 98 01/22/22 08:00 FiO2 4 01/11/22 00:00 Intake & Output 01/21/22 01/22/22 01/22/22 18:59 06:59 18:59 Output Total 1451 400 350 Balance -1451 -400 -350 Weight 94.347 kg Output: Urine 1450 400 350 Stool 1 Other: Voiding Method Urinal # Voids 2 - Exam GENERAL DESCRIPTION: Middle-age male lying in bed in no distress RESPIRATORY SYSTEM: Unlabored breathing , decreased breath sounds at bases HEART: S1 S2 regular rate and rhythm , ABDOMEN: Soft , no tenderness EXTREMITIES: Right heel is currently dressed no drainage on the dressing - Labs CBC & Chem 7: 01/17/22 04:36 01/22/22 08:23 Labs: Abnormal Lab Results - Last 24 Hours (Table) 01/21/22 01/21/22 01/21/22 Range/Units 11:25 16:37 20:50 Carbon Dioxide (22-30) mmol/L BUN (9-20) mg/dL Creatinine (0.66-1.25) mg/dL Glucose (74-99) mg/dL POC Glucose (mg/dL) 232 H 169 H 238 H (70-110) mg/dL Calcium (8.4-10.2) mg/dL 01/22/22 01/22/22 Range/Units 07:20 08:23 Carbon Dioxide 31 H (22-30) mmol/L BUN 38 H (9-20) mg/dL Creatinine 1.45 H (0.66-1.25) mg/dL Glucose 147 H (74-99) mg/dL POC Glucose (mg/dL) 184 H (70-110) mg/dL Calcium 8.3 L (8.4-10.2) mg/dL Assessment and Plan (1) Decubitus ulcer of foot Current Visit: No Status: Acute Code(s): L89.899 - PRESSURE ULCER OF OTHER SITE, UNSPECIFIED STAGE SNOMED Code(s): 8952695934 (2) Diabetic foot ulcer Current Visit: No Status: Acute Code(s): E11.621 - TYPE 2 DIABETES MELLITUS WITH FOOT ULCER; L97.509 - NON-PRESSURE CHRONIC ULCER OTH PRT UNSP FOOT W UNSP SEVERITY SNOMED Code(s): 129796512 Plan: 1patient with a chronic nonhealing wound to the right heel area and this patient with underlying osteomyelitis secondary to Acinetobacter and MRSA for the patient completed more than 6 weeks of antibiotic therapy was recently discontinued patient became to the hospital with a possible syncopal episode and lack of home oxygen, patient is Noted any fever white count is normal and no evidence of any significant cellulitis to the right heel wound area recommend local wound care. 2patient is status post debridement of the right heel wound no purulence and no cultures were done. 3patient wound care to the right leg with the Santyl followed by moist dressing daily and keep the area of pressure , patient is currently waiting for placement and will not need any antibiotics on discharge Time with Patient: Less than 30
[2022-01-23 07:15] LABS: Glucose,Whole Blood 193 mg/dL (70-110)
[2022-01-23] MEDS: carvediloL 6.25 MG TAB PO SCH ×2 (07:31→17:23)
[2022-01-23] MEDS: INSULIN ASPART (NovoLOG) 100 UNIT/ML VIAL SQ SCH ×3 (07:31→17:23)
[2022-01-23] MEDS: HYDROcodone/APAP 7.5-325MG 1 EACH TAB PO PRN ×3 (07:32→22:21)
[2022-01-23] MEDS: BUDESONIDE 1 MG/2 ML NEBU INHALATION SCH ×2 (08:08→21:31)
[2022-01-23] MEDS: IPRATROPIUM-ALBUTEROL 3 ML NEB INHALATION SCH ×4 (08:08→21:31)
[2022-01-23] MEDS: carvediloL 12.5 MG TAB PO SCH ×2 (08:49→22:21)
[2022-01-23] MEDS: CLOPIDOGREL 75 MG TAB PO SCH (08:49)
[2022-01-23] MEDS: hydrALAZINE HCL 50 MG TAB PO SCH ×3 (08:49→22:19)
[2022-01-23] MEDS: ASPIRIN 81 MG PO SCH (08:49)
[2022-01-23] MEDS: TAMSULOSIN 0.4 MG CAP.ER.24H PO SCH (08:50)
[2022-01-23] MEDS: ENOXAPARIN 40 MG/0.4 ML SYRINGE SQ SCH (08:50)
[2022-01-23] MEDS: BUMETANIDE 1 MG TAB PO SCH (08:50)
[2022-01-23] MEDS: levETIRAcetam 500 MG TAB PO SCH ×2 (08:51→22:23)
[2022-01-23] MEDS: risperiDONE 0.25 MG TAB PO SCH (08:51)
[2022-01-23] MEDS: COLLAGENASE 250 UNIT/GM OINTMENT 30 GM TUBE TOPICAL SCH (09:01)
[2022-01-23 11:06] LABS: Glucose,Whole Blood 412 mg/dL (70-110)
[2022-01-23] MEDS ORDERED: INSULIN ASPART (NovoLOG) 100 UNIT/ML VIAL SQ ONE (13:41)
[2022-01-23] MEDS ORDERED: INSULIN REGULAR 100 UNIT/ML VIAL (IM/SQ) SQ ONE (13:42)
[2022-01-23 13:52] LABS: Glucose,Whole Blood 380 mg/dL (70-110)
[2022-01-23 14:03] VITALS: TEMP 97.8
[2022-01-23 15:41] LABS: Glucose,Whole Blood 273 mg/dL (70-110)
--- NOTE | 2022-01-23 17:53 | P.PN ---
Progress Note - Text Progress Note Date: 01/23/22 Chief Complaint: Hypoxic This is a 61-year-old patient, follows with Dr. Smalls Chronic stable medical conditions include diabetes, hypertension, left below- knee amputation. admitted to the hospital on 11/09/2021 with a right foot nonhealing ulcer. Had been a smoker up to recently. Wound on right heel, wound cultures were positive for Acinetobacter and MRSA. MRI was negative for osteomyelitis. Seen by pain services for chronic pain. Neuropathic pain. Admitted with acute COPD exacerbation, pneumonia, right heel wound. IV Unasyn daptomycin continued. Bronchodilators. Steroids. For neuropathic pain , Neurontin was increased. seen by pain services. Patient was discharged to rehab Was in hospital and not a part of December. Discharged on December 25. Wound on the right heel. Seen by vascular team Dr. Marie. For outpatient follow-up. Was discharged to rehab. She was discharged from rehab to home yesterday. Patient felt he was discharged prematurely. Was discharged without oxygen and no pain medications. He went to live with his daughter. They were not told how to use oxygen. Apparently fell down and bumped his head. No loss of consciousness. As the daughter brought the patient back to the ER. Was placed in trauma to because of his respiratory status. This morning patient feeling much better. Most to go home. Wants pain medications for his foot. January 07: Patient was seen by vascular. Patient to follow-up outpatient. Discussed with ID. Not for antibiotics at the present time. Wound care to continue. The daughter wants the patient to go to rehab. garde manager is involved. Patient eating well. Sitting up in a chair. Pain well controlled. January 08: Up in a chair. Comfortable. Oral intake fair. as per Vascular patient had wound care debridement by Dr. blue last week. Patient being scheduled for right healed surgical wound debridement tomorrow. Many boot to right foot. Relevant to head. Changed Aynor 5 every 6 when necessary January 09: Patient is being refused by 2 rehab places. Up in a chair. Comfortable. Pain control. Debridement was canceled because patient had breakfast. January 10: Patient completed Increased pain. Aynor increased to 7.5 every 6 when necessary continue with Neurontin. Plan for debridement tomorrow. 2 places from rehab have declined the patient. Daughter is out of town till tomorrow. Hemoglobin 6.7 this morning. 1 unit PRBC ordered. January 14: I resumed care of patient today. Patient had right heel debridement on January [address] Poole. Again there is some area of black ischemia. Offloading reinforced. Patient was agitated earlier today. Received Ativan. Didn't want to eat. Spoke to binder caser. Waiting for authorization. Elevated potassium. Lokelma added. January 15: Patient doing much better today. Communicating. Had his breakfast. IV Dilaudid discontinued. Pain consultation done. Discussed with binder caser. Pending authorization. Santyl wound dressing. With offloading. January 16: Patient is pending authorization. Oral intake variable. Seen by pain management team. Continue on current medication. January 17: Patient is somewhat agitated last night. Required Haldol. Had some breakfast this morning. Earlier the nurse called me that. Patient was tw itching. EKG ordered. Added Risperdal today. 1 mg at night and 0.25 mg the morning. Neurology consulted. EEG ordered. Note that patient's sodium Keppra. Potassium 5.7. Kayexalate 45 g ordered. DC Sonal. January 18: Patient was started on Risperdal yesterday. Doing much better this morning. EEG negative for seizure activity. Patient has been declined at rehab. I spoke to Sofi from case management. To expedite discharge January 19: Sitting up in bed. Communicating. Did eat. Had a 20 second episode of change in vision. Seen by neurology Dr. Wolfe. [place] to be a amauroxis fugas. Plavix added. Pain well controlled. Vascular consulted because of known carotid stenosis. January 20: Short of breath today. IV Bumex ordered. We will get 2 doses. Switch back to by mouth Bumex tomorrow. Discussed with Dr. Poole from vascular. She'll follow-up in the CT angios results. Oral intake fair. January 21: DC 2 doses IV Bumex yesterday. Breathing better. Oral intake fair. Discussed with Dr. Montalvo from vascular. Complete occlusion of right ICA. Not for any surgical intervention. Eating anywhere from 50-75%. Decision for Appeal to rehab pending. January 22: Sitting up in a chair. Breathing better. Nasal cannula 2 L. Oral intake fair. Had a lengthy talk with the binder caser Sharonda and the patient. They're looking at Medicaid insurance. Other avenues of discharge being looked into. January 23: Sitting up in a chair. Comfortable. Patient is given to when he snacks today. Sugars went up really high close to 400. Extra insulin was ordered. I called the nurse to make sure that aids educated about not giving food indiscriminately. Discussed with patient Active Medications Hydrocodone Bitart/Acetaminophen (Hydrocodone/Apap 7.5-325mg 1 Each Tab) 1 each PO Q6HR PRN PRN Reason: Moderate Pain Last Admin: 01/23/22 13:15 Dose: 1 each Albuterol/Ipratropium (Ipratropium-Albuterol 3 Ml Neb) 3 ml INHALATION RT-QID [facility] Last Admin: 01/23/22 15:35 Dose: Not Given Aspirin (Aspirin 81 Mg) 81 mg PO DAILY [facility] Last Admin: 01/23/22 08:49 Dose: 81 mg Atorvastatin Calcium (Atorvastatin 40 Mg Tab) 80 mg PO HS [facility] Last Admin: 01/22/22 22:36 Dose: 80 mg Budesonide (Budesonide 1 Mg/2 Ml Nebu) 1 mg INHALATION RT-BID [facility] Last Admin: 01/23/22 08:08 Dose: Not Given Bumetanide (Bumetanide 1 Mg Tab) 2 mg PO DAILY [facility] Last Admin: 01/23/22 08:50 Dose: 2 mg Carvedilol (Carvedilol 12.5 Mg Tab) 12.5 mg PO BID [facility] Last Admin: 01/23/22 08:49 Dose: 12.5 mg Carvedilol (Carvedilol 6.25 Mg Tab) 6.25 mg PO BID-W/MEALS [facility] Last Admin: 01/23/22 17:23 Dose: 6.25 mg Clopidogrel Bisulfate (Clopidogrel 75 Mg Tab) 75 mg PO DAILY [facility] Last Admin: 01/23/22 08:49 Dose: 75 mg Collagenase (Collagenase 250 Unit/Gm Ointment 30 Gm Tube) 1 applic TOPICAL DAILY [facility]; Protocol Last Admin: 01/23/22 09:01 Dose: 1 applic Diphenhydramine HCl (Diphenhydramine 25 Mg Cap) 25 mg PO QID PRN PRN Reason: Allergic Reaction Last Admin: 01/21/22 23:19 Dose: 25 mg Enoxaparin Sodium (Enoxaparin 40 Mg/0.4 Ml Syringe) 40 mg SQ DAILY [facility] Last Admin: 01/23/22 08:50 Dose: 40 mg Gabapentin (Gabapentin 300 Mg Cap) 300 mg PO HS [facility] Last Admin: 01/22/22 22:36 Dose: 300 mg Haloperidol Lactate (Haloperidol Lactate 5 Mg/Ml 1 Ml Vial) 2.5 mg IM Q8H PRN PRN Reason: Agitation or Acute Psychosis Last Admin: 01/23/22 06:47 Dose: 2.5 mg Hydralazine HCl (Hydralazine Hcl 50 Mg Tab) 100 mg PO TID [facility] Last Admin: 01/23/22 17:22 Dose: 100 mg Insulin Aspart (Insulin Aspart (Novolog) 100 Unit/Ml Vial) 10 unit SQ AC-TID [facility] Last Admin: 01/23/22 17:23 Dose: 10 unit Insulin Detemir (Insulin Detemir (Levemir) 100 Unit/Ml Syr) 22 unit SQ HS [facility] Last Admin: 01/22/22 22:38 Dose: 22 unit Levetiracetam (Levetiracetam 500 Mg Tab) 1,000 mg PO BID [facility] Last Admin: 01/23/22 08:51 Dose: 1,000 mg Lidocaine HCl (Lidocaine 1% (10mg/Ml) For Iv Start) 0.1 ml INTRADERMA PER PROTOCOL PRN PRN Reason: IV Start Naloxone HCl (Naloxone 0.4 Mg/Ml 1 Ml Vial) 0.2 mg IV Q2M PRN PRN Reason: Opioid Reversal Ondansetron HCl (Ondansetron 4 Mg/2 Ml Vial) 4 mg IVP Q6HR PRN PRN Reason: Nausea And Vomiting Last Admin: 01/18/22 23:15 Dose: 4 mg Risperidone (Risperidone 1 Mg Tab) 1 mg PO [facility] Last Admin: 01/22/22 22:38 Dose: 1 mg Risperidone (Risperidone 0.25 Mg Tab) 0.25 mg PO DAILY [facility] Last Admin: 01/23/22 08:51 Dose: 0.25 mg Ropinirole HCl (Ropinirole Hcl 0.25 Mg Tab) 0.5 mg PO TID [facility] Last Admin: 01/23/22 17:23 Dose: 0.5 mg Tamsulosin HCl (Tamsulosin 0.4 Mg Cap.Er.24h) 0.4 mg PO DAILY [facility] Last Admin: 01/23/22 08:50 Dose: 0.4 mg Past medical history to include: Stroke, diabetes, hypertension, left below-knee amputation, right heel wound, PAD Social history: Discharged to home yesterday from of [place], smoked 2 packs a day for 45 years up October 2021. No alcohol. . 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 Conjunctiva normal. HEENT: External appearance of nose and ears normal, oral cavity grossly normal. NECK: JVD not raised; masses not palpable. HEART: First and second heart sounds are normal; no edema. LUNGS: Respiratory rate normal; decreased breath sounds, ABDOMEN: Soft, nontender, liver spleen not palpable, no masses palpable. PSYCH: Answering questions appropriately MUSCULOSKELETAL:No Clubbing/cyanosis;muscles-grossly intact. EXTREMITIES: Right heel necrotic wound. Dressing right lower extremity. Dry skin. Left below-knee amputation INVESTIGATIONS, reviewed in the clinical context: January 22: Potassium 5.1 BUN 38 creatinine 1.45 January 21: Potassium 4.9. [address] angiogram to neck: Occluded right internal carotid Artery extending from the bifurcation into the visualized skeleton this portion, bilateral pleural effusion dilated pulmonary trunk January 20: Potassium 5.5 BUN 38 creatinine 1.48 January 18: Potassium 4.7 BUN 37 creatinine 1.41 January 17: White count 11 hemoglobin 8.6 potassium 5.7 BUN 32 creatinine 1.3 January 16: Potassium 5.1 BUN 34 creatinine 1.43 January 06: White count 7.7 hemoglobin 7.1 platelets 301 potassium 5.6. 44 creatinine 1.73 EKG tracing personally reviewed by me-normal sensory. Nonspecific ST-T wave changes. Chest x-ray film personally reviewed by me: Possibly chronic changes Recent admission: Carotid Doppler:Subtotal occlusion right ICA and severe stenosis left ICA December 20: Hemoglobin 7 December 19: Potassium 5.1 BUN 37 creatinine 1.81 2-D echocardiogram: EF 60 - 65% Doppler ultrasound December 10 right lower extremity: Negative for DVT Assessment and plan: -Acute hypoxic respiratory failure from COPD exacerbation: Better Patient is unable to use his oxygen at home. Circumstances unclear. Supplemental oxygen. -Chronic encephalomalacia involving the right frontal lobe. -Acute congestive heart failure exacerbation from diastolic dysfunction EF 60- 65%: Better Continue Bumex 2 mg daily. -Per angiogram: Occluded right internal carotid artery extending from the bifurcation into the visualized skeletal portion. Seen by Dr. Montalvo. Not for any intervention. - Acute COPD exacerbation in a previous smoker: Better DuoNeb 4 times a day. Pulmicort nebulizer twice a day. -Right heel diabetic wound negative for osteomyelitis per recent MRI.: Previous Culture positive for Acinetobacter, MRSA No need for further antibiotics per ID.. Patient had his wound debrided by Dr. blue last week and the wound care center. Debridement done on January [address] Poole.Santyl wound care with offloading -chronic hypoxic respiratory failure from COPD On home oxygen -Acute on chronic Normocytic anemia/iron deficiency anemia Received 1 unit of PRBC -Chronic kidney disease stage III likely diabetic nephropathy and hypertensive nephrosclerosis Creatinine 1.68 on November 09 -Diabetes mellitus type 2, chronically on insulin: Controlled with hypoglycemia Levemir 22 units. 10 units with meals Humalog. Sliding scale. -Essential hypertension Coreg 18.75 mg twice a day hydralazine 100 mg three times a day -Diabetic peripheral neuropathy: Contact Neurontin 300 mg daily at bedtime -Restless leg syndrome: Requip 0.5 mg by mouth 3 times a day -Left below-knee amputation -PAD -Chronic pain. Patient seen by pain management team last admission. Aynor 7.5 every 6 when necessary. Neurontin 300 mg daily at bedtime -Hyperkalemia: Worsening Repeat Kayexalate 45 g. -Episodes of twitching. 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 -no code . Continue oral Bumex . Labs in a.m. Extra insulin given for increased Accu- Chek. Strict fluid restriction 2000 mL a day.
[2022-01-23 20:58] LABS: Glucose,Whole Blood 239 mg/dL (70-110)
[2022-01-23 21:47] VITALS: PULSE 92
[2022-01-23] MEDS: ATORVASTATIN 40 MG TAB PO SCH (22:20)
[2022-01-23] MEDS: GABAPENTIN 300 MG CAP PO SCH (22:20)
[2022-01-23] MEDS: INSULIN DETEMIR (LEVEMIR) 100 UNIT/ML SYR SQ SCH (22:23)
[2022-01-23] MEDS: risperiDONE 1 MG TAB PO SCH (22:23)
[2022-01-23] MEDS: diphenhydrAMINE 25 MG CAP PO PRN (22:25)
[2022-01-24 05:17] VITALS: BP 149/64; RESP 16
[2022-01-24 06:47] LABS: African American GFR (CKD) 45 (>60 ml/min/1.73 sqM); Anion Gap 9 mmol/L; Blood Urea Nitrogen 46 mg/dL (9-20); Calcium 7.9 mg/dL (8.4-10.2); Carbon Dioxide 27 mmol/L (22-30); Chloride 104 mmol/L (98-107); Glucose 251 mg/dL (74-99); Non-African American GFR(CKD) 39 (>60 ml/min/1.73 sqM); Potassium 5.2 mmol/L (3.5-5.1); Sodium 140 mmol/L (137-145)
[2022-01-24 07:10] LABS: Glucose,Whole Blood 258 mg/dL (70-110)
[2022-01-24] MEDS: BUDESONIDE 1 MG/2 ML NEBU INHALATION SCH (08:23)
[2022-01-24] MEDS: IPRATROPIUM-ALBUTEROL 3 ML NEB INHALATION SCH ×2 (08:23→12:51)
[2022-01-24] MEDS: INSULIN ASPART (NovoLOG) 100 UNIT/ML VIAL SQ SCH ×2 (08:46→12:11)
[2022-01-24] MEDS: ENOXAPARIN 40 MG/0.4 ML SYRINGE SQ SCH (08:46)
[2022-01-24] MEDS: levETIRAcetam 500 MG TAB PO SCH (08:47)
[2022-01-24] MEDS: ASPIRIN 81 MG PO SCH (08:47)
[2022-01-24] MEDS: hydrALAZINE HCL 50 MG TAB PO SCH (08:47)
[2022-01-24] MEDS: BUMETANIDE 1 MG TAB PO SCH (08:47)
[2022-01-24] MEDS: TAMSULOSIN 0.4 MG CAP.ER.24H PO SCH (08:48)
[2022-01-24] MEDS: carvediloL 12.5 MG TAB PO SCH (08:48)
[2022-01-24] MEDS: carvediloL 6.25 MG TAB PO SCH (08:48)
[2022-01-24] MEDS: COLLAGENASE 250 UNIT/GM OINTMENT 30 GM TUBE TOPICAL SCH (08:48)
[2022-01-24] MEDS: risperiDONE 0.25 MG TAB PO SCH (08:48)
[2022-01-24] MEDS: CLOPIDOGREL 75 MG TAB PO SCH (08:48)
[2022-01-24] MEDS: HYDROcodone/APAP 7.5-325MG 1 EACH TAB PO PRN ×2 (08:54→13:20)
[2022-01-24] MEDS ORDERED: SODIUM POLYSTYRENE SULFONATE 15 GM/60 ML BOTTLE PO STA (10:40)
[2022-01-24 11:15] LABS: Glucose,Whole Blood 362 mg/dL (70-110)
--- NOTE | 2022-01-24 12:22 | P.DS ---
Providers Date of admission: 01/05/22 23:14 Expected date of discharge: 01/24/22 Attending physician: Graham He Consults: 01/06/22 17:10 Consult Physician Routine Consulting Provider: Estefanía Zhu Consult Reason/Comments: Right heel ulcer Do you want consulting provider notified?: Yes 01/11/22 19:33 Consult Physician Routine Consulting Provider: Psychiatry - [facility] Consult Reason/Comments: suicidal, wants to Do you want consulting provider notified?: Yes, Notify in am 01/11/22 20:44 Consult Physician Routine Consulting Provider: Camilo Rojas Consult Reason/Comments: SI Do you want consulting provider notified?: Yes, Notify in am 01/17/22 12:47 Consult Physician Routine Consulting Provider: Otto Vences Consult Reason/Comments: Spastic movements Do you want consulting provider notified?: Yes 01/19/22 12:53 Consult Physician Urgent Consulting Provider: Rusty Montalvo Consult Reason/Comments: Amaurosis fugax, subtotal occlustion right ICA per Carotid Doppler Do you want consulting provider notified?: Yes [facility] Course: Chief Complaint: Hypoxic This is a 61-year-old patient, follows with Dr. Smalls Chronic stable medical conditions include diabetes, hypertension, left below- knee amputation. admitted to the hospital on 11/09/2021 with a right foot nonhealing ulcer. Had been a smoker up to recently. Wound on right heel, wound cultures were positive for Acinetobacter and MRSA. MRI was negative for osteomyelitis. Seen by pain services for chronic pain. Neuropathic pain. Admitted with acute COPD exacerbation, pneumonia, right heel wound. IV Unasyn daptomycin continued. Bronchodilators. Steroids. For neuropathic pain , Neurontin was increased. seen by pain services. Patient was discharged to rehab Was in hospital and not a part of December. Discharged on December 25. Wound on the right heel. Seen by vascular team Dr. Marie. For outpatient follow-up. Was discharged to rehab. She was discharged from rehab to home yesterday. Patient felt he was discharged prematurely. Was discharged without oxygen and no pain medications. He went to live with his daughter. They were not told how to use oxygen. Apparently fell down and bumped his head. No loss of consciousness. As the daughter brought the patient back to the ER. Was placed in trauma to because of his respiratory status. This morning patient feeling much better. Most to go home. Wants pain medications for his foot. January 07: Patient was seen by vascular. Patient to follow-up outpatient. Discussed with ID. Not for antibiotics at the present time. Wound care to continue. The daughter wants the patient to go to rehab. transition program manager is involved. Patient eating well. Sitting up in a chair. Pain well controlled. January 08: Up in a chair. Comfortable. Oral intake fair. as per Vascular patient had wound care debridement by Dr. blue last week. Patient being scheduled for right healed surgical wound debridement tomorrow. Many boot to right foot. Relevant to head. Changed [place] 5 every 6 when necessary January 09: Patient is being refused by 2 rehab places. Up in a chair. Comfortable. Pain control. Debridement was canceled because patient had breakfast. January 10: Patient completed Increased pain. [place] increased to 7.5 every 6 when necessary continue with Neurontin. Plan for debridement tomorrow. 2 places from rehab have declined the patient. Daughter is out of town till tomorrow. Hemoglobin 6.7 this morning. 1 unit PRBC ordered. January 14: I resumed care of patient today. Patient had right heel debridement on January [address] Poole. Again there is some area of black ischemia. Offloading reinforced. Patient was agitated earlier today. Received Ativan. Didn't want to eat. Spoke to shoe parts caser. Waiting for authorization. Elevated potassium. Tabithakeljacquelin added. January 15: Patient doing much better today. Communicating. Had his breakfast. I V Dilaudid discontinued. Pain consultation done. Discussed with shoe parts caser. Pending authorization. Santyl wound dressing. With offloading. January 16: Patient is pending authorization. Oral intake variable. Seen by pain management team. Continue on current medication. January 17: Patient is somewhat agitated last night. Required Haldol. Had some breakfast this morning. Earlier the nurse called me that. Patient was twitching. EKG ordered. Added Risperdal today. 1 mg at night and 0.25 mg the morning. Neurology consulted. EEG ordered. Note that patient's sodium Keppra. Potassium 5.7. Kayexalate 45 g ordered. BISHOP Pruitt. Tracie 17: Patient was started on Risperdal yesterday. Doing much better this morning. EEG negative for seizure activity. Patient has been declined at rehab. I spoke to Sofi from case management. To expedite discharge January 19: Sitting up in bed. Communicating. Did eat. Had a 20 second episode of change in vision. Seen by neurology Dr. Wolfe. [place] to be a amauroxis fugas. Plavix added. Pain well controlled. Vascular consulted because of known carotid stenosis. January 20: Short of breath today. IV Bumex ordered. We will get 2 doses. Switch back to by mouth Bumex tomorrow. Discussed with Dr. Poole from vascular. She'll follow-up in the CT angios results. Oral intake fair. January 21: DC 2 doses IV Bumex yesterday. Breathing better. Oral intake fair. Discussed with Dr. Montalvo from vascular. Complete occlusion of right ICA. Not for any surgical intervention. Eating anywhere from 50-75%. Decision for Appeal to rehab pending. January 22: Sitting up in a chair. Breathing better. Nasal cannula 2 L. Oral intake fair. Had a lengthy talk with the shoe parts caser Sharonda and the patient. They're looking at Medicaid insurance. Other avenues of discharge being looked into. January 23: Sitting up in a chair. Comfortable. Patient is given to when he snacks today. Sugars went up really high close to 400. Extra insulin was ordered. I called the nurse to make sure that aids educated about not giving food indiscriminately. Discussed with patient January 24: Patient sitting up to chair. Breathing stable. Patient again educated about his diabetes diet. Given 1 dose of Kayexalate 45 g. Questions answered. Wound care to continue per ID and vascular. Discussed with patient. Discussion and discharge planning more than 35 minutes Past medical history to include: Stroke, diabetes, hypertension, left below-knee amputation, right heel wound, PAD Social history: Discharged to home yesterday from of [place], smoked 2 packs a day for 45 years up October 2021. No alcohol. . 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 Conjunctiva normal. HEENT: External appearance of nose and ears normal, oral cavity grossly normal. NECK: JVD not raised; masses not palpable. HEART: First and second heart sounds are normal; no edema. LUNGS: Respiratory rate normal; decreased breath sounds, ABDOMEN: Soft, nontender, liver spleen not palpable, no masses palpable. PSYCH: Answering questions appropriately MUSCULOSKELETAL:No Clubbing/cyanosis;muscles-grossly intact. EXTREMITIES: Right heel necrotic wound. Dressing right lower extremity. Dry skin. Left below-knee amputation INVESTIGATIONS, reviewed in the clinical context: January 24: Potassium 5.2 BUN [address] angiogram to neck: Occluded right internal carotid Artery extending from the bifurcation into the visualized skeleton this portion, bilateral pleural effusion dilated pulmonary trunk January 17: White count 11 hemoglobin 8.6 potassium 5.7 BUN 32 creatinine 1.3 January 06: White count 7.7 hemoglobin 7.1 platelets 301 potassium 5.6. 44 creatinine 1.73 EKG tracing personally reviewed by me-normal sensory. Nonspecific ST-T wave changes. Chest x-ray film personally reviewed by me: Possibly chronic changes Recent admission: Carotid Doppler:Subtotal occlusion right ICA and severe stenosis left ICA December 20: Hemoglobin 7 December 19: Potassium 5.1 BUN 37 creatinine 1.81 2-D echocardiogram: EF 60 - 65% Doppler ultrasound December 10 right lower extremity: Negative for DVT Assessment and plan: -Acute hypoxic respiratory failure from COPD exacerbation: Better Supplemental oxygen. -Chronic encephalomalacia involving the right frontal lobe. -Acute congestive heart failure exacerbation from diastolic dysfunction EF 60- 65%: Better Bumex 2 mg daily. -Per angiogram: Occluded right internal carotid artery extending from the bifurcation into the visualized skeletal portion. Seen by Dr. Montalvo. Not for any intervention. - Acute COPD exacerbation in a previous smoker: Better DuoNeb 3 times a day. Pulmicort 1 mg nebulizer twice a day. -Right heel diabetic wound negative for osteomyelitis per recent MRI.: Previous Culture positive for Acinetobacter, MRSA No need for further antibiotics per ID.. Patient had his wound debrided by Dr. blue last week and the wound care center. Debridement done on January [address] Poole.Santyl wound care with offloading. Follow outpatient with vascular -chronic hypoxic respiratory failure from COPD On home oxygen -Acute on chronic Normocytic anemia/iron deficiency anemia Received 1 unit of PRBC -Chronic kidney disease stage III likely diabetic nephropathy and hypertensive nephrosclerosis Creatinine 1.68 on November 09 -Diabetes mellitus type 2, chronically on insulin: Controlled with hypoglycemia Levemir 30 units. Daily at bedtime 8 units with meals Humalog. Sliding scale. -Essential hypertension Coreg 18.75 mg twice a day hydralazine 100 mg three times a day -Diabetic peripheral neuropathy: Neurontin 300 mg daily at bedtime -Restless leg syndrome: Requip 0.5 mg by mouth 3 times a day -Left below-knee amputation -PAD -Chronic pain. Patient seen by pain management team last admission. [place] 7.5 every 6 when necessary. Neurontin 300 mg daily at bedtime -Hyperkalemia: Repeat Kayexalate 45 g. -Episodes of twitching. 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 Seen by vascular. No further intervention -no code Disposition: Gael Torres CBC BMP: 3 days Wound care to continue per vascular and ID Plan - Discharge Summary Discharge Rx Participant: No New Discharge Prescriptions: New HYDROcodone/APAP 7.5-325MG [[place] 7.5-325] 1 each PO Q6HR PRN #12 tab PRN Reason: Moderate Pain risperiDONE [RisperDAL] 0.25 mg PO DAILY #3 tab carvediloL [Coreg] 6.25 mg PO BID #1 tablet Gabapentin [Neurontin] 300 mg PO HS #3 cap risperiDONE [RisperDAL] 1 mg PO HS #3 tab Clopidogrel [Plavix] 75 mg PO DAILY tab Continue carvediloL [Coreg] 12.5 mg PO BID levETIRAcetam [Keppra] 1,000 mg PO BID Ipratropium-Albuterol Nebulize [Duoneb 0.5 mg-3 mg/3 ml Soln] 3 ml INHALATION RT-Q8H Aspirin 81 mg PO DAILY rOPINIRole HCL [Requip] 0.5 mg PO TID Tamsulosin [Flomax] 0.4 mg PO DAILY Ticagrelor [Brilinta] 90 mg PO BID Ketoconazole 2% Shampoo [Nizoral] 1 applic TOPICAL DIRECTED PRN PRN Reason: DANDRUFF Collagenase [Santyl Ointment] 1 applic TOPICAL DAILY hydrALAZINE HCL [Apresoline] 100 mg PO TID #0 Atorvastatin [Lipitor] 40 mg PO HS tab Bumetanide [BUMEX] 2 mg PO DAILY Changed Insulin Lispro [humaLOG Kwikpen] 8 units SQ AC-TID #0 Insulin Detemir (Levemir) [Levemir] 30 unit SQ HS #0 each Discontinued Acetaminophen Tab [Tylenol] 650 mg PO Q6H PRN PRN Reason: Pain Or Fever > 100.5 Ipratropium-Albuterol Nebulize [Duoneb 0.5 mg-3 mg/3 ml Soln] 3 ml INHALATION RT-Q2H PRN each PRN Reason: Shortness Of Breath Or Wheezing Discharge Medication List Ketoconazole 2% Shampoo [Nizoral] 1 applic TOPICAL DIRECTED PRN 11/09/21 [History] Ticagrelor [Brilinta] 90 mg PO BID 11/09/21 [History] carvediloL [Coreg] 12.5 mg PO BID 11/09/21 [History] Ipratropium-Albuterol Nebulize [Duoneb 0.5 mg-3 mg/3 ml Soln] 3 ml INHALATION RT-Q8H 12/18/21 [History] levETIRAcetam [Keppra] 1,000 mg PO BID 12/18/21 [History] Aspirin 81 mg PO DAILY 12/21/21 [Rx] Collagenase [Santyl Ointment] 1 applic TOPICAL DAILY 12/21/21 [Rx] hydrALAZINE HCL [Apresoline] 100 mg PO TID #0 12/21/21 [Rx] Atorvastatin [Lipitor] 40 mg PO HS tab 12/25/21 [Rx] Bumetanide [BUMEX] 2 mg PO DAILY 01/05/22 [History] Tamsulosin [Flomax] 0.4 mg PO DAILY 01/05/22 [History] rOPINIRole HCL [Requip] 0.5 mg PO TID 01/05/22 [History] Insulin Lispro [humaLOG Kwikpen] 8 units SQ AC-TID #0 01/08/22 [Rx] Gabapentin [Neurontin] 300 mg PO HS #3 cap 01/17/22 [Rx] HYDROcodone/APAP 7.5-325MG [[place] 7.5-325] 1 each PO Q6HR PRN #12 tab 01/17/22 [Rx] risperiDONE [RisperDAL] 0.25 mg PO DAILY #3 tab 01/17/22 [Rx] risperiDONE [RisperDAL] 1 mg PO HS #3 tab 01/17/22 [Rx] Clopidogrel [Plavix] 75 mg PO DAILY tab 01/22/22 [Rx] carvediloL [Coreg] 6.25 mg PO BID #1 tablet 01/22/22 [Rx] Insulin Detemir (Levemir) [Levemir] 30 unit SQ HS #0 each 01/24/22 [Rx] Follow up Appointment(s)/Referral(s): Jeffrey Smalls DO [Primary Care Provider] - 1-2 days [facility] [NON-STAFF] - As Needed ([facility] will call you to schedule your in home visits. ) Mirza Marie DO [Doctor of Osteopathic Medicine] - 4 Weeks Cristian Morrison DO [STAFF PHYSICIAN] - 2 Weeks Activity/Diet/Wound Care/Special Instructions: Follow-up wound care center Wound care orders per vascular and ID.
== END 2022-01-24 14:13 | DRG 166 ==
LOC: EC 20:28 → 4SSUR 23:14 → 3SCARD 01-09 20:14 → 4SSUR 01-12 17:59
PROVIDERS: ADMIT Hospitalist; ATTEND Hospitalist
PROC: 30233N1 Transfusion of Nonautologous Red Blood Cells into Peripheral Vein, Percutaneous Approach (ICD-10-PCS; 2022-01-10)
PROC: 0JBQ0ZZ Excision of Right Foot Subcutaneous Tissue and Fascia, Open Approach (ICD-10-PCS; principal; 2022-01-11 11:15)
DX: J18.9 Pneumonia, unspecified organism (principal); I50.33 Acute on chronic diastolic (congestive) heart failure; J96.21 Acute and chronic respiratory failure with hypoxia; G92.8 Other toxic encephalopathy; I96 Gangrene, not elsewhere classified; I13.0 Hypertensive heart and chronic kidney disease with heart failure and stage 1 through stage 4 chronic kidney disease, or unspecified chronic kidney disease; J44.0 Chronic obstructive pulmonary disease with (acute) lower respiratory infection; J44.1 Chronic obstructive pulmonary disease with (acute) exacerbation; E11.52 Type 2 diabetes mellitus with diabetic peripheral angiopathy with gangrene; E11.621 Type 2 diabetes mellitus with foot ulcer; E11.22 Type 2 diabetes mellitus with diabetic chronic kidney disease; E11.42 Type 2 diabetes mellitus with diabetic polyneuropathy; I70.234 Atherosclerosis of native arteries of right leg with ulceration of heel and midfoot; D63.8 Anemia in other chronic diseases classified elsewhere; F43.22 Adjustment disorder with anxiety; I65.23 Occlusion and stenosis of bilateral carotid arteries; L89.619 Pressure ulcer of right heel, unspecified stage; B95.62 Methicillin resistant Staphylococcus aureus infection as the cause of diseases classified elsewhere; G93.89 Other specified disorders of brain; B96.89 Other specified bacterial agents as the cause of diseases classified elsewhere; E87.5 Hyperkalemia; G89.29 Other chronic pain; G25.81 Restless legs syndrome; N18.30 Chronic kidney disease, stage 3 unspecified; Z87.891 Personal history of nicotine dependence; Z79.02 Long term (current) use of antithrombotics/antiplatelets; Z79.4 Long term (current) use of insulin; Z79.82 Long term (current) use of aspirin; Z79.899 Other long term (current) drug therapy; Z86.73 Personal history of transient ischemic attack (TIA), and cerebral infarction without residual deficits; Z89.512 Acquired absence of left leg below knee; Z88.1 Allergy status to other antibiotic agents; Z99.81 Dependence on supplemental oxygen; Z99.3 Dependence on wheelchair
CPT/HCPCS: 36415; 36600; 70450; 70498; 71045; 71046; 72125; 80048; 80053; 82805; 83605; 84484; 85025; 85027; 85610; 85730; 86850; 86900; 86901; 86920; 93005; 94640; 94760; 95816; 96374; 96375; 99285